=== PATIENT | female | born 1950 | race Caucasian/White ===

== ENCOUNTER → 2016-12-10 | Outpatient (CLI) | payer OTHER ==
[~2016-12-10] MED LIST: ASCA500 PO; BROM0.07 OPL; CALC-354 PO; CYAN10004 PO; GABA-113 PO; LACT1TAB4 PO; LEVO25TA PO; MEGA RED PO; METO-217 PO; MULT-506 PO; NXM/40 PO; PRED1SUS OPL
--- NOTE | 2016-12-10 12:26 | MAMMOGRAPHY REPORT ---
UNILATERAL LEFT DIGITAL SCREENING MAMMOGRAM TOMOSYNTHESIS WITH CAD: 12/10/2016 TECHNIQUE: Breast tomosynthesis in addition to standard 2D mammography was performed. Current study was also evaluated with a Computer Aided Detection (CAD) system. Left CC and MLO 2-D and tomosynth esis images were obtained. COMPARISON: Comparison is made to exams dated: 12/08/2015 mammogram, 12/06/2014 mammogram, 10/12/2012 mammogram, 10/29/2013 mammogram, 10/12/2011 mammogram, and 10/07/2010 mammogram - [facility]. BREAST COMPOSITION: The tissue of the left breast is heterogeneously dense, which may obscure small masses. FINDINGS: There are no suspicious masses, calcifications, or areas of architectural distortion noted in the left breast. There has been no significant interval change compared to prior exams. Status post right mastectomy. Benign-appearing left breast calcifications are unchanged. IMPRESSION: ACR BI-RADS CATEGORY 2: BENIGN There is no mammographic evidence of malignancy. A 1 year screening mammogram is recommended. The p atient will receive written notification of the results. Approximately 10% of breast cancers are not detected with mammography. A negative mammographic repor t should not delay biopsy if a clinically suggestive mass is present. Mariel Hinojosa M.D. ah/:12/10/2016 10:25:05 Single Wire Saw Operator: Aparna GAN(Nando)(M), [facility] letter sent: Normal 1/2 BI-RADS Code: ACR BI-RADS Category 2: Benign
== END | disposition home or self-care (01) ==
LOC: C.MAMM 08:54
PROVIDERS: ATTEND Obstetrics & Gynecology
DX: Z12.31 Encounter for screening mammogram for malignant neoplasm of breast (principal); Z90.11 Acquired absence of right breast and nipple

== ENCOUNTER → 2016-12-21 | Outpatient (CLI) | payer OTHER ==
[2016-12-21 12:22] LABS: BASO % 0.4 %; BASO ABS # 0.03 K/uL (0-0.2); COMPLETE YES; EOS % 3.6 %; HEMATOCRIT 41.6 % (37-47); IG% 0.5 %; LYMPH % 20.8 %; LYMPH ABS # 1.73 K/uL (1.2-3.4); MEAN CELL VOLUME 87.2 fL (80-100); MEAN CORPUSCULAR HEMOGLOBIN 28.7 pg (25-34); MEAN CORPUSCULAR HGB CONC 32.9 g/dl (32-36); MEAN PLATELET VOLUME 9.9 fL (7.4-10.4); MONO % 12.6 %; NEUT % 62.1 %; PLATELET COUNT 291 K/uL (130-400); RED BLOOD COUNT 4.77 M/uL (4.2-5.4); WHITE BLOOD COUNT 8.31 K/uL (4.8-10.8)
[2016-12-21 12:46] LABS: ALT/SGPT 28 U/L (12-78); AST/SGOT 19 U/L (15-37); BLOOD UREA NITROGEN 15 mg/dl (7-18); BUN/CREATININE RATIO 17.4 (10-20); CARBON DIOXIDE 25 mmol/L (21-32); CHLORIDE 106 mmol/L (98-107); CHOLESTEROL 156 mg/dl (0-200); CREATININE 0.85 mg/dl (0.60-1.20); GLUCOSE 96 mg/dl (70-99); POTASSIUM 4.1 mmol/L (3.5-5.1); SODIUM 141 mmol/L (136-145); TRIGLYCERIDES 226 mg/dl (0-150); VERY LOW DENSITY LIPOPROT CALC 45 mg/dl
[2016-12-21 12:56] LABS: ALKALINE PHOSPHATASE 93 U/L (45-117); CHOLESTEROL/HDL RATIO 3.8; FERRITIN 24.4 ng/ml (8.0-388.0); HDL CHOLESTEROL 41 mg/dl; LDL CHOLESTEROL CALCULATED 70 mg/dl
[2016-12-21 13:00] LABS: ESTIMATED AVERAGE GLUCOSE 111 mg/dl; HA1C FLAG Normal (Normal)
== END | disposition home or self-care (01) ==
LOC: C.LABBFT 07:42
PROVIDERS: ATTEND Nurse Practitioner
DX: R73.01 Impaired fasting glucose (principal); D50.9 Iron deficiency anemia, unspecified; E03.9 Hypothyroidism, unspecified; E78.5 Hyperlipidemia, unspecified

== ENCOUNTER → 2017-01-14 | Outpatient (CLI) | payer OTHER ==
[2017-01-14 09:47] LABS: URINE APPEARANCE CLEAR (CLEAR); URINE BILIRUBIN NEG (NEG); URINE COLOR YELLOW; URINE EPITHELIAL CELL AUTO 0-5 /lpf (0-5); URINE NITRITE NEG (NEG); URINE SPECIFIC GRAVITY 1.006 (1.000-1.030); UROBILINOGEN NEG (NEG); ZZUR CULT IF INDIC CLEAN CATCH NO
[2017-01-14 09:51] LABS: MANUAL MICROSCOPIC REQUIRED? NO; REVIEW REQ? NO
[2017-01-18 14:55] LABS: CREATININE UR 34 MG/DL (20-320)
[2017-01-18 23:33] LABS: ALBUMIN 3.8 G/DL (3.8-4.8); ANA SCREEN Negative (Negative); COLLECTION SAMPLE Venous; GAMMA GLOBULIN 1.2 G/DL (0.8-1.7); LEAD BLOOD <1 mcg/dL (<5); TOTAL PROTEIN 6.7 G/DL (6.2-8.3)
--- NOTE | 2017-01-20 06:19 | CODING QUERY MEDICAL NECESSITY ---
SUPPORTING DIAGNOSIS NEEDED A supporting diagnosis is required for the test/procedure performed on this patient in order for us to be reimbursed by the patient's insurance. Please provide a supporting diagnosis for the following test/procedure listed below next to the test name along with your signature. *If there is no additional diagnosis for this patient that would support the following test/procedure please document that below next to the test/procedure. Test(s)/Procedure(s) that require a supporting diagnosis: * VITAMIN B-12 LEVEL DIAGNOSIS: * RAPID PLASMA REAGIN DIAGNOSIS: * DOS: 01/14/17 Provider Signature: Date: Thank you Denice Mittal Health Information Management Once completed, please kindly fax back to [phone] For questions please call [phone]
== END | disposition home or self-care (01) ==
LOC: C.LABBFT 08:14
PROVIDERS: ATTEND Nurse Practitioner
DX: G62.9 Polyneuropathy, unspecified (principal)

== ENCOUNTER → 2017-02-01 | Day surgery (SDC) | payer OTHER ==
[2017-01-14 12:35] VITALS: Ht 166.4 cm; Wt 79.1 kg
[~2017-02-01] VITALS: Ht 166.4 cm; Wt 79.1 kg
[~2017-02-01] MED LIST changes: +500ML BSS 0.3ML EPI 1:1000PF IRRIG ONE; +ACETAMINOPHEN 325 MG TAB PO PRN; +AMVISC PLUS 0.8ML SYRINGE INT OCU ONE; +ATROPINE SULFATE 0.1 MG/ML 5ML SYR IV PRN; +BSS FLUSH ONE; +EpINEphrine INJ 1MG/ML AMP 1 MG/ML AMP ONE; +LACTATED RINGER'S 1000ML 500 ML IV SCH; +LIDOCAINE 3.5% OPH GEL PER APPLICATION CHARGE ONE; +LIDOCAINE HCL 1% MPF 2 ML VIAL ONE; -METO-217 PO; +MIDAZOLAM HCL 1 MG/ML 2ML VIAL ONE; +OCUCOAT 1 ML SOLN IO ONE; +POVIDONE-IODINE OP SOLN 30 ML BTL ONE; +PROPARACAINE 0.5% OP SOLN PER DROP CHARGE OPL SCH; +TOBRAMYCIN/DEXAMETHASONE OPH OINT PER APPLN CHARGE ONE
--- NOTE | 2017-02-01 10:05 | History & Physical Bridge - [place] ---
H&P Re-Evaluation Bridge Note: I have examined the patient, reviewed the History & Physical and in the interval since the performance of the History & Physical I have noted the following changes of clinical significance: No changes noted
[2017-02-01] MEDS: PHENYLEPHRINE HCL 2.5% OP SOLN PER DROP CHARGE OPL SCH ×2 (10:09→10:14)
[2017-02-01] MEDS: TROPICAMIDE 1% OP SOLN PER DROP CHARGE OPL SCH ×2 (10:10→10:15)
[2017-02-01] MEDS: CYCLOPENTOLATE HCL 1% OP SOLN PER DROP CHARGE OPL SCH ×2 (10:11→10:16)
[2017-02-01] MEDS: KETOROLAC 0.5% OP SOLN PER DROP CHARGE OPL SCH ×2 (10:12→10:16)
[2017-02-01] MEDS: GATIFLOXACIN OP SOLN PER DROP CHARGE OPL SCH ×2 (10:13→10:20)
--- NOTE | 2017-02-01 10:55 | Discharge Instructions-SurgCtr ---
Discharge Instructions Date of Service Feb 01, 2017. Visit Reason for Visit: Cataract Left Eye Discharge Discharge Diagnosis / Problem: cataract Discharge Goals Goal(s): Improve function Activity Recommendations Activity Limitations: per Instructions/Follow-up section Anesthesia . Post Anesthesia Instructions: If you have had General Anesthesia or IV Sedation: * Do not drive today. * Resume driving when surgeon permits. * Do not make important decisions or sign legal documents today. * Call surgeon for: 1. Temperature elevations greater than 101 degrees F. 2. Uncontrollable pain. 3. Excessive bleeding. 4. Persistent nausea and vomiting. 5. Medication intolerance (nausea, vomiting or rash). * For nausea and vomiting use only clear liquids such as: tea, soda, bouillon until nausea subsides, then gradually increase diet as tolerated. * If you have any concerns or questions, call your surgeon's office. If physician is unavailable and it is an emergency, call 911 or go to the nearest emergency room. . Instructions / Follow-Up Instructions / Follow-Up ACTIVITY RECOMMENDATIONS: * No strenuous lifting, jogging or running for 4 days * No swimming or yard work for 1 week. * Limited bending is permitted, such as putting on shoes. RETURN TO SCHOOL/WORK: No work until seen by physician in office. MEDICATIONS: Resume previous medications unless instructed otherwise by your surgeon. This includes eye drops for glaucoma. Zymaxid/Gatifloxacin (parry cap) - one drop every 2 hours until bedtime Nevanac/Ilevro/Prolensa/Ketorolac (adams cap) - one drop every 4 hours until bedtime Prednisolone (white/pink cap, SHAKE WELL) - one drop every 2 hours until bedtime Starting tomorrow - all 3 drops every 4 hours until seen in the office Optive drops - as needed for discomfort SPECIAL CARE INSTRUCTIONS: * Wear eyeshield when sleeping, for four nights. * You may wear your own glasses or sunglasses while awake. * You may read or watch TV * You may shower and wash your face, but be gentle around the eye and pat dry. * Blurry vision and mild irritation are normal. * Call office if pain is more severe or vision becomes dark at . FOLLOW UP VISIT: Follow-up with Dr Jensen tomorrow. Diet Recommendations Home Diet: resume previous diet Procedures Procedures Performed: Left Cataract Phacoemulsification With Intraocular Lens Implant Pending Studies Studies pending at discharge: no Medical Emergencies . Who to Call and When: Medical Emergencies: If at any time you feel your situation is an emergency, please call 911 immediately. . Non-Emergent Contact Non-Emergency issues call your: Group Director . . "Provider Documentation" section prepared by Ugo Jensen.
--- NOTE | 2017-02-01 10:56 | [facility] Operative Report ---
Operative Report Date of Service Feb 01, 2017. Operative Report 1. PREOPERATIVE DIAGNOSIS: Cataract of the left eye. 2. POSTOPERATIVE DIAGNOSIS: Same. 3. PROCEDURE: Phacoemulsification with intraocular lens implantation of the left eye. SURGEON: Dr. Ugo Jensen. ANESTHESIA: Topical Lidocaine gel, 1% Non- Preserved intracameral Lidocaine, and monitored intravenous sedation. INDICATIONS FOR THE PROCEDURE: The patient is a 66 - year-old female with a history of cataract of the left eye causing significant visual impairment. The details of the proposed procedure were explained to the patient who asked appropriate questions and following discussion of all risks, benefits and alternatives agreed to have the procedure done. 4. OPERATION AND FINDINGS: DESCRIPTION OF PROCEDURE: After informed consent was obtained, the patient was brought to the Operating Room at the [facility]. The patient was placed in a supine position and then the left eye was prepped and draped in the usual sterile fashion for intraocular surgery. A drop of topical Lidocaine gel was placed in the operative eye. A wire lid speculum was then placed in the fornices. A corneal paracentesis was then created temporally. The Non-Preserved Lidocaine was then instilled into the anterior chamber. The anterior chamber was then pressurized with viscoelastic. A 2.0 mm clear corneal incision was then created temporally. A cystotome was inserted into the anterior chamber and used to create a tear in the anterior lens capsule. This capsular tear was then used to create a small flap and the flap was dragged in a counterclockwise direction in order to create a continuous curvilinear capsulorrhexis. Hydrodissection was accomplished with balanced salt solution. Phacoemulsification of the lens nucleus was then performed in a standard [id number] technique. The phaco time was 19 seconds with an average power of 13 %. The remaining cortical material was removed using irrigation aspiration. The capsular bag was then filled with viscoelastic. A Bausch & Lomb MI60L +24.0 diopters lens was then loaded into the injector and injected into the capsular bag. The remaining viscoelastic was removed with the irrigation aspiration handpiece. The wound was hydrated and then checked and found to be watertight. The intraocular pressure was checked and found to be adequate. The wire lid speculum was removed and the patient's face was cleaned and dried. TobraDex ointment was placed in the inferior fornix. The patient was discharged to the Recovery Room having tolerated the procedure well. There were no complications. The patient will be seen tomorrow in the office for follow-up. I attest to the content of the Intraoperative Record and any orders documented therein. Any exceptions are noted below.
[2017-02-01 10:57] VITALS: TEMP 36.4
[2017-02-01 11:27] VITALS: BP 129/74; PULSE 74; O2SAT 97
--- NOTE | 2017-02-01 11:38 | Anesthesia Progress Nt - [facility] ---
Anesthesia Post Op Note Date & Time Feb 01, 2017 at 11:38 Vital Signs Pain Intensity: 0 Vital Signs Past 12 Hours Date Time Temp Pulse Resp B/P Pulse Ox O2 Delivery O2 Flow Rate FiO2 02/01/17 11:27 74 16 129/74 97 Room Air 02/01/17 10:57 36.4 78 16 127/77 97 Room Air 02/01/17 10:01 36.8 90 16 152/90 95 Room Air Notes Mental Status: alert / awake / arousable, participated in evaluation Pt Amnestic to Procedure: Yes Nausea / Vomiting: adequately controlled Pain: adequately controlled Airway Patency, RR, SpO2: stable & adequate BP & HR: stable & adequate Hydration State: stable & adequate Anesthetic Complications: no major complications apparent
== END | disposition home or self-care (01) ==
LOC: X.SURG 09:33
PROVIDERS: ATTEND Ophthalmology
DX: H26.9 Unspecified cataract (principal); M34.1 CR(E)ST syndrome; K21.9 Gastro-esophageal reflux disease without esophagitis; E78.5 Hyperlipidemia, unspecified; E03.9 Hypothyroidism, unspecified; G62.9 Polyneuropathy, unspecified; Z87.891 Personal history of nicotine dependence; Z85.3 Personal history of malignant neoplasm of breast; Z90.10 Acquired absence of unspecified breast and nipple; Z80.0 Family history of malignant neoplasm of digestive organs; Z83.3 Family history of diabetes mellitus; Z80.3 Family history of malignant neoplasm of breast

== ENCOUNTER → 2017-02-15 | Outpatient (CLI) | payer OTHER ==
[~2017-02-15] MED LIST changes: -500ML BSS 0.3ML EPI 1:1000PF IRRIG ONE; -ACETAMINOPHEN 325 MG TAB PO PRN; -AMVISC PLUS 0.8ML SYRINGE INT OCU ONE; -ATROPINE SULFATE 0.1 MG/ML 5ML SYR IV PRN; -BSS FLUSH ONE; -EpINEphrine INJ 1MG/ML AMP 1 MG/ML AMP ONE; -LACTATED RINGER'S 1000ML 500 ML IV SCH; -LIDOCAINE 3.5% OPH GEL PER APPLICATION CHARGE ONE; -LIDOCAINE HCL 1% MPF 2 ML VIAL ONE; -MIDAZOLAM HCL 1 MG/ML 2ML VIAL ONE; -OCUCOAT 1 ML SOLN IO ONE; -POVIDONE-IODINE OP SOLN 30 ML BTL ONE; -PROPARACAINE 0.5% OP SOLN PER DROP CHARGE OPL SCH; -TOBRAMYCIN/DEXAMETHASONE OPH OINT PER APPLN CHARGE ONE
== END | disposition home or self-care (01) ==
LOC: C.PAPS 16:19
PROVIDERS: ATTEND Obstetrics & Gynecology
DX: Z01.419 Encounter for gynecological examination (general) (routine) without abnormal findings (principal)

== ENCOUNTER → 2017-02-24 | Day surgery (SDC) | payer OTHER ==
[2017-02-11 14:04] VITALS: Ht 166.4 cm; Wt 79.1 kg
[~2017-02-24] VITALS: Ht 166.4 cm; Wt 79.1 kg
[~2017-02-24] MED LIST changes: +500ML BSS 0.3ML EPI 1:1000PF IRRIG ONE; +ACETAMINOPHEN 325 MG TAB PO PRN; +AMVISC PLUS 0.8ML SYRINGE INT OCU ONE; +ATROPINE SULFATE 0.1 MG/ML 5ML SYR IV PRN; +BSS FLUSH ONE; +EpHEDrine SULFATE INJ 50 MG/ML AMP IV PRN; +EpINEphrine INJ 1MG/ML AMP 1 MG/ML AMP ONE; +LACTATED RINGER'S 1000ML 500 ML IV SCH; +LIDOCAINE 3.5% OPH GEL PER APPLICATION CHARGE ONE; +LIDOCAINE HCL 1% MPF 2 ML VIAL ONE; +MIDAZOLAM HCL 1 MG/ML 2ML VIAL ONE; +OCUCOAT 1 ML SOLN IO ONE; +POVIDONE-IODINE OP SOLN 30 ML BTL ONE; +PROPARACAINE 0.5% OP SOLN PER DROP CHARGE OPR SCH; +TOBRAMYCIN/DEXAMETHASONE OPH OINT PER APPLN CHARGE ONE
[2017-02-24] MEDS: PHENYLEPHRINE HCL 2.5% OP SOLN PER DROP CHARGE OPR SCH ×2 (07:46→07:51)
[2017-02-24] MEDS: TROPICAMIDE 1% OP SOLN PER DROP CHARGE OPR SCH ×2 (07:47→07:52)
[2017-02-24] MEDS: CYCLOPENTOLATE HCL 1% OP SOLN PER DROP CHARGE OPR SCH ×2 (07:48→07:53)
[2017-02-24] MEDS: KETOROLAC 0.5% OP SOLN PER DROP CHARGE OPR SCH ×2 (07:49→07:54)
[2017-02-24] MEDS: GATIFLOXACIN OP SOLN PER DROP CHARGE OPR SCH ×2 (07:50→08:02)
--- NOTE | 2017-02-24 09:17 | Discharge Instructions-SurgCtr ---
Discharge Instructions Date of Service Feb 24, 2017. Visit Reason for Visit: Cataract Right Eye Discharge Discharge Diagnosis / Problem: cataract Discharge Goals Goal(s): Improve function Activity Recommendations Activity Limitations: per Instructions/Follow-up section Anesthesia . Post Anesthesia Instructions: If you have had General Anesthesia or IV Sedation: * Do not drive today. * Resume driving when surgeon permits. * Do not make important decisions or sign legal documents today. * Call surgeon for: 1. Temperature elevations greater than 101 degrees F. 2. Uncontrollable pain. 3. Excessive bleeding. 4. Persistent nausea and vomiting. 5. Medication intolerance (nausea, vomiting or rash). * For nausea and vomiting use only clear liquids such as: tea, soda, bouillon until nausea subsides, then gradually increase diet as tolerated. * If you have any concerns or questions, call your surgeon's office. If physician is unavailable and it is an emergency, call 911 or go to the nearest emergency room. . Instructions / Follow-Up Instructions / Follow-Up ACTIVITY RECOMMENDATIONS: * No strenuous lifting, jogging or running for 4 days * No swimming or yard work for 1 week. * Limited bending is permitted, such as putting on shoes. RETURN TO SCHOOL/WORK: No work until seen by physician in office. MEDICATIONS: Resume previous medications unless instructed otherwise by your surgeon. This includes eye drops for glaucoma. Zymaxid/Gatifloxacin (parry cap) - one drop every 2 hours until bedtime Nevanac/Ilevro/Prolensa/Ketorolac (adams cap) - one drop every 4 hours until bedtime Prednisolone (white/pink cap, SHAKE WELL) - one drop every 2 hours until bedtime Starting tomorrow - all 3 drops every 4 hours until seen in the office Optive drops - as needed for discomfort SPECIAL CARE INSTRUCTIONS: * Wear eyeshield when sleeping, for four nights. * You may wear your own glasses or sunglasses while awake. * You may read or watch TV * You may shower and wash your face, but be gentle around the eye and pat dry. * Blurry vision and mild irritation are normal. * Call office if pain is more severe or vision becomes dark at . FOLLOW UP VISIT: Follow-up with Dr Jensen tomorrow. Diet Recommendations Home Diet: resume previous diet Procedures Procedures Performed: Right Cataract Phacoemulsification With Intraocular Lens Implant Pending Studies Studies pending at discharge: no Medical Emergencies . Who to Call and When: Medical Emergencies: If at any time you feel your situation is an emergency, please call 911 immediately. . Non-Emergent Contact Non-Emergency issues call your: Nurse Rn Bsn . . "Provider Documentation" section prepared by Ugo Jensen.
--- NOTE | 2017-02-24 09:18 | [facility] Operative Report ---
Operative Report Date of Service Feb 24, 2017. Operative Report 1. PREOPERATIVE DIAGNOSIS: Cataract of the right eye. 2. POSTOPERATIVE DIAGNOSIS: Same. 3. PROCEDURE: Phacoemulsification with intraocular lens implantation of the right eye. SURGEON: Dr. Ugo Jensen. ANESTHESIA: Topical Lidocaine gel, 1% Non- Preserved intracameral Lidocaine, and monitored intravenous sedation. INDICATIONS FOR THE PROCEDURE: The patient is a 66 - year-old female with a history of cataract of the right eye causing significant visual impairment. The details of the proposed procedure were explained to the patient who asked appropriate questions and following discussion of all risks, benefits and alternatives agreed to have the procedure done. 4. OPERATION AND FINDINGS: DESCRIPTION OF PROCEDURE: After informed consent was obtained, the patient was brought to the Operating Room at the [facility]. The patient was placed in a supine position and then the right eye was prepped and draped in the usual sterile fashion for intraocular surgery. A drop of topical Lidocaine gel was placed in the operative eye. A wire lid speculum was then placed in the fornices. A corneal paracentesis was then created temporally. The Non-Preserved Lidocaine was then instilled into the anterior chamber. The anterior chamber was then pressurized with viscoelastic. A 2.0 mm clear corneal incision was then created temporally. A cystotome was inserted into the anterior chamber and used to create a tear in the anterior lens capsule. This capsular tear was then used to create a small flap and the flap was dragged in a counterclockwise direction in order to create a continuous curvilinear capsulorrhexis. Hydrodissection was accomplished with balanced salt solution. Phacoemulsification of the lens nucleus was then performed in a standard dyhkqm-[id number] technique. The phaco time was 22 seconds with an average power of 9 %. The remaining cortical material was removed using irrigation aspiration. The capsular bag was then filled with viscoelastic. A Bausch & Lomb MI60L +23.5 diopters lens was then loaded into the injector and injected into the capsular bag. The remaining viscoelastic was removed with the irrigation aspiration handpiece. The wound was hydrated and then checked and found to be watertight. The intraocular pressure was checked and found to be adequate. The wire lid speculum was removed and the patient's face was cleaned and dried. TobraDex ointment was placed in the inferior fornix. The patient was discharged to the Recovery Room having tolerated the procedure well. There were no complications. The patient will be seen tomorrow in the office for follow-up. I attest to the content of the Intraoperative Record and any orders documented therein. Any exceptions are noted below.
[2017-02-24 09:19] VITALS: TEMP 36.6
[2017-02-24 09:45] VITALS: BP 129/80; PULSE 73; O2SAT 96
--- NOTE | 2017-02-24 10:11 | Anesthesia Progress Nt - [facility] ---
Anesthesia Post Op Note Date & Time Feb 24, 2017 at 10:10 Vital Signs Pain Intensity: 0 Vital Signs Past 12 Hours Date Time Temp Pulse Resp B/P Pulse Ox O2 Delivery O2 Flow Rate FiO2 02/24/17 09:45 73 16 129/80 96 02/24/17 09:19 36.6 75 16 122/79 97 Room Air 02/24/17 07:46 36.8 82 16 137/85 97 Room Air Notes Mental Status: alert / awake / arousable, participated in evaluation Pt Amnestic to Procedure: Yes Nausea / Vomiting: adequately controlled Pain: adequately controlled Airway Patency, RR, SpO2: stable & adequate BP & HR: stable & adequate Hydration State: stable & adequate Anesthetic Complications: no major complications apparent
== END | disposition home or self-care (01) ==
LOC: X.SURG 07:20
PROVIDERS: ATTEND Ophthalmology
DX: H26.9 Unspecified cataract (principal); H54.7 Unspecified visual loss; M34.1 CR(E)ST syndrome; K21.9 Gastro-esophageal reflux disease without esophagitis; E78.5 Hyperlipidemia, unspecified; E03.9 Hypothyroidism, unspecified; D50.9 Iron deficiency anemia, unspecified; D48.5 Neoplasm of uncertain behavior of skin; G62.9 Polyneuropathy, unspecified; R00.0 Tachycardia, unspecified; Z85.3 Personal history of malignant neoplasm of breast

== ENCOUNTER → 2017-06-23 | Outpatient (CLI) | payer OTHER ==
[~2017-06-23] MED LIST changes: -500ML BSS 0.3ML EPI 1:1000PF IRRIG ONE; -ACETAMINOPHEN 325 MG TAB PO PRN; -AMVISC PLUS 0.8ML SYRINGE INT OCU ONE; -ATROPINE SULFATE 0.1 MG/ML 5ML SYR IV PRN; -BSS FLUSH ONE; -EpHEDrine SULFATE INJ 50 MG/ML AMP IV PRN; -EpINEphrine INJ 1MG/ML AMP 1 MG/ML AMP ONE; -LACTATED RINGER'S 1000ML 500 ML IV SCH; -LIDOCAINE 3.5% OPH GEL PER APPLICATION CHARGE ONE; -LIDOCAINE HCL 1% MPF 2 ML VIAL ONE; -MIDAZOLAM HCL 1 MG/ML 2ML VIAL ONE; -OCUCOAT 1 ML SOLN IO ONE; -POVIDONE-IODINE OP SOLN 30 ML BTL ONE; -PROPARACAINE 0.5% OP SOLN PER DROP CHARGE OPR SCH; -TOBRAMYCIN/DEXAMETHASONE OPH OINT PER APPLN CHARGE ONE
[2017-06-23 12:34] LABS: HEMATOCRIT 40.2 % (37-47); MEAN CELL VOLUME 89.1 fL (80-100); MEAN CORPUSCULAR HGB CONC 32.6 g/dl (32-36); MEAN PLATELET VOLUME 9.5 fL (7.4-10.4); PLATELET COUNT 277 K/uL (130-400); RED BLOOD COUNT 4.51 M/uL (4.2-5.4); WHITE BLOOD COUNT 9.58 K/uL (4.8-10.8)
[2017-06-23 12:57] LABS: BLOOD UREA NITROGEN 13 mg/dl (7-18); BUN/CREATININE RATIO 14.9 (10-20); CALCIUM 8.5 mg/dl (8.5-10.1); CARBON DIOXIDE 27 mmol/L (21-32); CHLORIDE 109 mmol/L (98-107); CREATININE 0.89 mg/dl (0.60-1.20); GLUCOSE 93 mg/dl (70-99); POTASSIUM 4.1 mmol/L (3.5-5.1); SODIUM 141 mmol/L (136-145)
[2017-06-23 13:07] LABS: FERRITIN 26.1 ng/ml (8.0-388.0)
== END | disposition home or self-care (01) ==
LOC: C.LABBFT 08:22
PROVIDERS: ATTEND Nurse Practitioner
DX: E03.9 Hypothyroidism, unspecified (principal); D50.9 Iron deficiency anemia, unspecified; R73.01 Impaired fasting glucose

== ENCOUNTER → 2017-07-12 | Outpatient (CLI) | payer OTHER | END | disposition home or self-care (01) | LOC: C.LABBFT 08:19 | PROVIDERS: ATTEND Nurse Practitioner | DX: Z11.59 Encounter for screening for other viral diseases (principal) ==

== ENCOUNTER → 2017-07-21 | Outpatient (CLI) | payer OTHER | END | disposition home or self-care (01) | LOC: C.MAMM 10:58 | PROVIDERS: ATTEND Nurse Practitioner | DX: M85.88 Other specified disorders of bone density and structure, other site (principal); M85.851 Other specified disorders of bone density and structure, right thigh; M85.852 Other specified disorders of bone density and structure, left thigh ==

== ENCOUNTER → 2017-12-12 | Outpatient (CLI) | payer OTHER ==
--- NOTE | 2017-12-12 15:52 | MAMMOGRAPHY REPORT ---
BILATERAL DIGITAL SCREENING MAMMOGRAM TOMOSYNTHESIS WITH CAD: 12/12/2017 CLINICAL HISTORY: Asymptomatic. Personal history of breast cancer. TECHNIQUE: Breast tomosynthesis in addition to standard 2D mammography was performed. Current study was also evaluated with a Computer Aided Detection (CAD) system. COMPARISON: Comparison is made to exams dated: 12/10/2016 mammogram, 12/08/2015 mammogram, 12/06/2014 m ammogram, 10/29/2013 mammogram, 10/12/2012 mammogram, and 10/12/2011 mammogram - [facility]. BREAST COMPOSITION: The tissue of both breasts is heterogeneously dense, which may obscure small mas ses. FINDINGS: The patient is status post right mastectomy and TRAM flap reconstruction. There are no hansen spicious masses, calcifications, or areas of architectural distortion noted in the left breast or the right reconstructed breast. There has been no significant interval change compared to prior exams. Bilateral benign-appearing calcifications are again noted. IMPRESSION: ACR BI-RADS CATEGORY 2: BENIGN There is no mammographic evidence of malignancy. A 1 year screening mammogram is recommended. The pa tient will receive written notification of the results. Approximately 10% of breast cancers are not detected with mammography. A negative mammographic report should not delay biopsy if a clinically suggestive mass is present. Mariel Hinojosa M.D. /:12/12/2017 12:38:36 Family Development Specialist: Aparna ZARAGOZA)([place]), [facility] letter sent: Normal 1/2 BI-RADS Code: ACR BI-RADS Category 2: Benign
== END | disposition home or self-care (01) ==
LOC: C.MAMM 09:32
PROVIDERS: ATTEND Obstetrics & Gynecology
DX: Z12.31 Encounter for screening mammogram for malignant neoplasm of breast (principal); Z85.3 Personal history of malignant neoplasm of breast; Z08 Encounter for follow-up examination after completed treatment for malignant neoplasm

== ENCOUNTER → 2018-01-03 | Outpatient (CLI) | payer OTHER ==
[2018-01-03 12:26] LABS: HEMATOCRIT 40.3 % (37-47); HEMOGLOBIN 13.6 g/dL (12.0-16.0); MEAN CELL VOLUME 88.6 fL (80-100); MEAN CORPUSCULAR HEMOGLOBIN 29.9 pg (25-34); MEAN CORPUSCULAR HGB CONC 33.7 g/dl (32-36); MEAN PLATELET VOLUME 9.9 fL (7.4-10.4); PLATELET COUNT 301 K/uL (130-400); RED CELL DISTRIBUTION WIDTH SD 45.7 fL (36.4-46.3); WHITE BLOOD COUNT 9.82 K/uL (4.8-10.8)
[2018-01-03 13:30] LABS: ALBUMIN 3.6 gm/dl (3.4-5.0); ALT/SGPT 22 U/L (12-78); AST/SGOT 15 U/L (15-37); BLOOD UREA NITROGEN 17 mg/dl (7-18); CALCIUM 8.9 mg/dl (8.5-10.1); CARBON DIOXIDE 23 mmol/L (21-32); CREATININE 0.88 mg/dl (0.60-1.20); GLUCOSE 88 mg/dl (70-99); POTASSIUM 3.7 mmol/L (3.5-5.1); SODIUM 138 mmol/L (136-145)
[2018-01-03 13:35] LABS: ALKALINE PHOSPHATASE 89 U/L (45-117); CHOLESTEROL 133 mg/dl (0-200); LDL CHOLESTEROL CALCULATED 52 mg/dl; TOTAL PROTEIN 7.6 gm/dl (6.4-8.2)
== END | disposition home or self-care (01) ==
LOC: C.LABBFT 07:36
PROVIDERS: ATTEND Nurse Practitioner
DX: D50.9 Iron deficiency anemia, unspecified (principal); E78.5 Hyperlipidemia, unspecified; C85.91 Non-Hodgkin lymphoma, unspecified, lymph nodes of head, face, and neck

== ENCOUNTER 2022-09-18 12:59 | Inpatient (IN) ==
[2022-09-18] MEDS ORDERED: ONDANSETRON INJ 2 MG/ML 2 ML VIAL IV STA (13:24)
[2022-09-18] MEDS ORDERED: SODIUM CHLORIDE 0.9% 1000ML 1,000 ML IV STA (13:24)
--- NOTE | 2022-09-18 13:26 | Emergency Department Note ---
Impression & Plan SBO (small bowel obstruction), Vomiting, Acute dehydration ED Provider Note NAME: KEVIN HUNTER AGE: 72 SEX: F : 1950 ARRIVES VIA: Walk-In INFORMANT: Patient, ED PROVIDER(S): Adelfo Esteban DO CHIEF COMPLAINT: Vomiting HPI: The patient is a 72-year-old female who presented to the emergency department for an evaluation of nausea and vomiting. The patient started having symptoms last evening. She has a history of a watermelon stomach. She also has a history of breast cancer. The patient states that she started having symptoms last evening. She notices some abdominal distention. She denies having any diarrhea or fever. She denies having any chest pain or difficulty breathing. The patient states the symptoms are worsened now but she only has dry heaves. Patient denies having any hematemesis. She has had no melena. She states her symptoms are moderate to severe. Abdominal pain worsens with palpation over the upper abdomen. ROS: See above HPI for pertinent positives & negatives. A total of 10 systems reviewed and were otherwise negative. PAST MEDICAL HISTORY: See Below PAST SURGICAL HISTORY: See Below FAMILY HISTORY: See Below SOCIAL HISTORY: See Below HOME MEDICATIONS: See Below ALLERGIES: See Below VITALS: See Below PHYSICAL EXAMINATION: GENERAL: Patient is awake alert in no acute distress patient is resting comfortably and showing no signs of anxiety EYES: The conjunctivae are clear. The pupils are round and reactive. EARS, NOSE, MOUTH AND THROAT: The nose is without any evidence of any deformity. Mucous membranes are moist. Tongue is midline. NECK: The neck is nontender and supple. RESPIRATORY: Normal respiratory effort is noted there is no evidence of wheezing rhonchi or rales CARDIOVASCULAR: Regular rate and rhythm noted there no murmurs rubs or gallops normal S1 normal S2. GASTROINTESTINAL: The abdomen is soft and mildly distended. There is diffuse tenderness to palpation but no guarding or rigidity. MUSCULOSKELETAL/EXTREMITIES: There is no evidence of gross deformity full range of motion is noted in the hips and shoulders. SKIN: There is no obvious evidence of any rash. There are no petechiae, pallor or cyanosis noted. NEUROLOGIC: Patient is awake alert and oriented x3. MEDICAL DECISION MAKING: The patient is a 72-year-old female who presented to the emergency department for an evaluation of abdominal pain and vomiting. The patient's physical exam was consistent with very significant abdominal tenderness but she did not have an acute surgical abdomen. The patient has no intra-abdominal surgical history. Physical exam appear to be consistent with obstruction and this was confirmed on radiographic studies. An NG tube was ordered. The patient was treated with IV fluids and IV antibiotics. She was also treated with IV pain medication. On reevaluation she was resting much more comfortably. I discussed the patient's laboratory and radiographic studies with her. I also discussed her case with the on-call general surgeon as well as the on-call [facility] hospitalist. They have agreed to evaluate the patient in the emergency department for further management and disposition. Triage Nursing notes reviewed. Prior medical records reviewed Vital Signs: reviewed and remarkable for no significant abnormalities Differential diagnosis: Gastroenteritis, food borne illness, infections, appendicitis, diverticulitis, inflammatory bowel disease, obstruction, GI bleed, biliary pathology, volvulus, as well as other pathologies. ER treatment provided: See below Diagnostics interpreted by me: ECG: EKG was obtained in the emergency department. My interpretation is normal sinus rhythm at 94 bpm. LVH was suggested by voltage criteria. First-degree AV block was noted. Poor R wave progression was also noted. This was compared to a tracing from January 08, 2016. No significant changes were noted. Cardiac Monitoring: An order was placed for continuous cardiac monitoring. The monitor shows a rate of 91 bpm with sinus rhythm. Laboratory studies: As stated above and show below. Imaging studies: See below Consultation(s): I discussed this case with Dr. Cool who is on for general surgery. I discussed this case with Dr. Boykin Past Med/Surg History Medical History CREST (calcinosis, Raynaud's phenomenon, esophageal dysfunction, sclerodactyly, telangiectasia) GERD without esophagitis History of adjustment disorder Iron deficiency anemia Personal history of breast cancer right Personal history of Helicobacter infection Pulmonary fibrosis Recurrent cough Surgical History History of breast reconstruction History of colonoscopy History of subtotal mastectomy of right breast Family History Father Myocardial infarction Sister Breast cancer Ovarian cancer Brother Colon cancer Diabetes Prostate cancer Colorectal cancer Mother Coronary heart disease Diabetes Social History Smoking Status: Never smoker Age Started Using Tobacco: 29; Age Quit Using Tobacco: 39; Years Smoked: 10; Second Hand Exposure: No; Hx Alcohol Use: No Hx Substance Use: No Preferred Language: Sinhala Visual Impairment: No Limitations Hearing Ability: Normal marital status: Current Living Situation: Spouse current occupational status: retired Feels Safe at Home: Yes Childhood Exposure to Second-Hand Smoke: Yes caffeine: No Dental Care, Regularly: Yes Physical Activity Frequency: Daily Seatbelt Use: always Sunscreen Use: Yes Allergies Allergies Allergy/AdvReac Type Severity Reaction Status Date / Time nickel AdvReac Severe RASH- Verified 09/17/22 09:06 HANDS AND OTHER AREAS BREAK OUT Home Meds Home Medications Medication Instructions Recorded Confirmed Lactobacillus acidophilus 1 1,000 mmu cells PO DAILY 01/06/20 09/18/22 billion cell tablet ascorbic acid (vitamin C) 100 mg 100 mg PO DAILY 01/06/20 09/18/22 tablet calcium carbonate 600 mg calcium 600 mg PO DAILY 01/06/20 09/18/22 (1,500 mg) tablet cyanocobalamin (vitamin B-12) 1,000 mcg PO DAILY 01/06/20 09/18/22 1,000 mcg tablet coenzyme Q10 100 mg capsule (Co 100 mg PO DAILY 01/22/20 09/18/22 Q-10) talsxzydbks-otjjzkdft-frr C-Mn 500 1 cap PO DAILY 01/22/20 09/18/22 mg-400 mg capsule (Glucosamine Chondroitin Maximum Strength) omega-3 fatty acids [Fish Oil] 1 ea PO DAILY 01/22/20 09/18/22 ferrous fumarate 324 mg (106 mg 324 mg PO DAILY 01/28/22 09/18/22 iron) tablet albuterol 90 mcg/actuation aerosol 90 mcg inhalation DAILY 09/02/22 09/18/22 inhaler Previous Rx's Medication Instructions Recorded omeprazole 20 mg capsule,delayed 20 mg PO DAILY #90 caps 06/04/22 release desoximetasone 0.25 % topical 1 applic topical DAILY #60 grams 06/10/22 ointment gabapentin 800 mg tablet 800 mg PO TID #270 tabs 08/23/22 benzonatate 100 mg capsule 100 mg PO TID PRN cough #30 caps 09/02/22 baclofen 10 mg tablet 10 mg PO BID #180 tabs 09/06/22 levothyroxine 25 mcg tablet 25 mcg PO DAILY #90 tabs 09/06/22 Results & Data (ED) Vital Signs Vital Signs - 24 hr 09/18/22 13:03 09/18/22 13:46 09/18/22 13:46 Temperature 36.6 C Temperature Source Temporal Artery Scan Pulse Rate 99 H Pulse Rate [Apical] 92 H Pulse Rhythm [Apical] Regular Respiratory Rate 16 16 Respiratory Effort / Characteristics Non-Labored Respiratory Depth Normal Respiratory Pattern Regular Blood Pressure 129/83 Blood Pressure [Left Arm] 139/95 Blood Pressure Mean 98 Blood Pressure Mean [Left Arm] 109 Blood Pressure Position [Left Arm] Lying Pulse Oximetry 97 98 98 Oxygen Delivery Method Room Air Room Air Sepsis Recent Fever Within 48 Hours No Sepsis New/Unexplained Change in Mental Status No Sepsis Action Taken by Nursing No Action Required 09/18/22 15:00 Temperature Temperature Source Pulse Rate Pulse Rate [Apical] 91 H Pulse Rhythm [Apical] Respiratory Rate 16 Respiratory Effort / Characteristics Respiratory Depth Normal Respiratory Pattern Blood Pressure Blood Pressure [Left Arm] 137/82 Blood Pressure Mean Blood Pressure Mean [Left Arm] 100 Blood Pressure Position [Left Arm] Pulse Oximetry 96 Oxygen Delivery Method Room Air Sepsis Recent Fever Within 48 Hours Sepsis New/Unexplained Change in Mental Status Sepsis Action Taken by Usp Medications Current Medication List: was personally reviewed by me Laboratory Data Attestation: I reviewed the patient's lab results. Result diagrams: 09/18/22 13:24 09/18/22 13:24 Lab Results 09/18/22 09/18/22 09/18/22 Range/Units 13:24 13:24 13:24 WBC 23.27 H (4.8-10.8) K/ul RBC 5.02 (3.93-5.22) M/uL Hgb 14.4 (12.0-16.0) g/dl Hct 43.6 (34.1-44.9) % MCV 86.9 (80.0-100.0) fL MCH 28.7 (25.0-34.0) pg MCHC 33.0 (32.0-36.0) g/dL RDW Std Deviation 43.7 (36.4-46.3) fL RDW Coeff of Colette 13.8 (11.5-14.5) % Plt Count 457 H (130-400) K/uL MPV 9.5 (9.4-12.3) fL Immature Gran % (Auto) 0.6 % Neut % (Auto) 85.1 % Lymph % (Auto) 8.7 % [place] % (Auto) 5.3 % Eos % (Auto) 0.0 % Baso % (Auto) 0.3 % Neut # (Auto) 19.80 H (1.4-6.5) K/uL Lymph # (Auto) 2.02 (1.2-3.4) K/uL [place] # (Auto) 1.23 H (0.24-0.82) K/uL Eos # (Auto) 0.01 (0-0.50) K/uL Baso # (Auto) 0.06 (0-0.2) K/uL Immature Gran # (Auto) 0.15 H (0.00-0.02) K/uL PT 10.9 (9.0-12.0) Seconds INR 1.0 (0.9-1.1) APTT 26.8 (21.0-31.0) Seconds PTT Ratio 1.0 Sodium 138 (136-145) mmol/L Potassium 3.6 (3.5-5.1) mmol/L Chloride 102 (98-107) mmol/L Carbon Dioxide 26 (21-32) mmol/L Anion Gap 10 (3-11) BUN 13 (6-23) mg/dl Creatinine 0.76 (0.6-1.2) mg/dl Est Cr Clr Drug Dosing Not Reportable Est GFR ( Amer) 91.5 ml/min Est GFR (Non-Af Amer) 78.9 ml/min BUN/Creatinine Ratio 17.1 (10-20) Glucose 146 H (70-99(Fasting)) mg/dl Calcium 9.5 (8.5-10.1) mg/dl Total Bilirubin 0.5 (0.2-1.0) mg/dl AST 19 (13-39) U/L ALT 17 (7-52) U/L Alkaline Phosphatase 88 (34-104) U/L Troponin I High Sens 9.7 (0-14) pg/ml Total Protein 8.4 H (6.0-8.3) gm/dl Albumin 4.4 (3.4-5.0) gm/dl Globulin 4.0 (2.5-4.0) gm/dl Albumin/Globulin Ratio 1.1 (0.9-2) Lipase 11 (11-82) U/L SARS-CoV-2, RNA, NAAT (NEGATIVE) 09/18/22 Range/Units 13:44 WBC (4.8-10.8) K/ul RBC (3.93-5.22) M/uL Hgb (12.0-16.0) g/dl Hct (34.1-44.9) % MCV (80.0-100.0) fL MCH (25.0-34.0) pg MCHC (32.0-36.0) g/dL RDW Std Deviation (36.4-46.3) fL RDW Coeff of Colette (11.5-14.5) % Plt Count (130-400) K/uL MPV (9.4-12.3) fL Immature Gran % (Auto) % Neut % (Auto) % Lymph % (Auto) % [place] % (Auto) % Eos % (Auto) % Baso % (Auto) % Neut # (Auto) (1.4-6.5) K/uL Lymph # (Auto) (1.2-3.4) K/uL [place] # (Auto) (0.24-0.82) K/uL Eos # (Auto) (0-0.50) K/uL Baso # (Auto) (0-0.2) K/uL Immature Gran # (Auto) (0.00-0.02) K/uL PT (9.0-12.0) Seconds INR (0.9-1.1) APTT (21.0-31.0) Seconds PTT Ratio Sodium (136-145) mmol/L Potassium (3.5-5.1) mmol/L Chloride (98-107) mmol/L Carbon Dioxide (21-32) mmol/L Anion Gap (3-11) BUN (6-23) mg/dl Creatinine (0.6-1.2) mg/dl Est Cr Clr Drug Dosing Est GFR ( Amer) ml/min Est GFR (Non-Af Amer) ml/min BUN/Creatinine Ratio (10-20) Glucose (70-99(Fasting)) mg/dl Calcium (8.5-10.1) mg/dl Total Bilirubin (0.2-1.0) mg/dl AST (13-39) U/L ALT (7-52) U/L Alkaline Phosphatase (34-104) U/L Troponin I High Sens (0-14) pg/ml Total Protein (6.0-8.3) gm/dl Albumin (3.4-5.0) gm/dl Globulin (2.5-4.0) gm/dl Albumin/Globulin Ratio (0.9-2) Lipase (11-82) U/L SARS-CoV-2, RNA, NAAT NEGATIVE (NEGATIVE) Administered Medications Discontinued Medications Sodium Chloride (Nss 1000ml) 1,000 mls @ 999 mls/hr IV .Q1H1M STA Stop: 09/18/22 14:24 Last Infusion: 09/18/22 15:03 Dose: 0 mls/hr Documented By: Admin: 09/18/22 13:41 Dose: 999 mls/hr Documented By: Piperacillin Sod/Tazobactam Sod (Zosyn) 4.5 gm in 120 mls @ 240 mls/hr IV NOW ONE Stop: 09/18/22 15:22 Last Admin: 09/18/22 15:03 Dose: 240 mls/hr Documented By: CORRINE Ioversol (Optiray 350 100ml) 90 ml IV ONCE ONE Stop: 09/18/22 14:24 Last Admin: 09/18/22 14:23 Dose: 90 ml Documented By: ALISSA Ondansetron HCl (Ondansetron Inj 2 Mg/Ml 2 Ml Vial) 4 mg IV NOW STA Stop: 09/18/22 13:25 Last Admin: 09/18/22 13:41 Dose: 4 mg Documented By: Imaging Data Radiologist's Impression: Abdomen/Pelvis CT 09/18/22 13:24 CT abd pelvis IV con only CLINICAL HISTORY: vomiting TECHNIQUE: Helical axial images of the abdomen and pelvis were obtained and dis played. Automated dose lowering techniques and/or adjustment according to patient size were utilized for this exam. This exam was performed with intravenous contrast. CT DOSE: 510.04 mGy.cm COMPARISON: Comparison is made to PET/CT 2014 FINDINGS: Lower chest: Reticular interstitial thickening, groundglass opacity, and bronchiectasis noted. Liver: Unremarkable. No focal lesions are seen. Gallbladder and biliary tree: No calcified gallstones. Normal caliber wall. No intra- or extrahepatic biliary ductal dilation. Pancreas: Unremarkable, no focal lesions. Spleen: Unremarkable. Adrenals: Unremarkable. Kidneys and ureters: Subcentimeter hypodensities are too small to characterize. Bladder: Unremarkable. Reproductive organs: Unremarkable. Bowel: The colon is decompressed. The appendix is normal. There are multiple dilated loops of small bowel with air-fluid levels. There is a distal transition point in the ileum, no proximal transition point is seen. Lymph nodes Retroperitoneal: Unremarkable. Pelvic: Unremarkable. Mesenteric: Unremarkable. Peritoneum: Free fluid is seen in the pelvis. Vessels: Atherosclerotic calcifications are seen. Vascular swirling is seen in the right lower quadrant about the transition point. Abdominal wall: Unremarkable. Bones: Unremarkable. IMPRESSION: 1. Small bowel obstruction with under distended large bowel and distal transition point only, compatible with high-grade partial small bowel obstruction. Vascular swirl is seen in the right lower quadrant however there is no evidence of closed loop obstruction. No bowel ischemia is seen. 2. Particular interstitial thickening in bronchial wall thickening in the lower lungs favored to represent pulmonary fibrosis with or without superimposed inf ectious/inflammatory bronchitis. ACT 112: Negative or not required by law. Electronically signed by: Kofi Villatoro M.D. 09/18/2022 2:47 PM Chest X-Ray 09/18/22 13:24 XR chest 1V portable CLINICAL HISTORY: vomiting TECHNIQUE: Single frontal radiograph of the chest was obtained. Comparison: Comparison is made to chest radiograph 11/26/2021 FINDINGS: No lines and tubes are seen. The cardiomediastinal silhouette is normal. Lungs are underinflated but clear. Trace right pleural plaques are seen. No evidence of pleural effusion or pneumothorax. Right axillary clips are noted. IMPRESSION: No acute chest disease. ACT 112: Negative or not required by law. Electronically signed by: Kofi Villatoro M.D. 09/18/2022 2:03 PM Discharge Plan Visit Data Chief Complaint: Vomiting Stated Complaint: VOMITING ED Provider: Adelfo Esteban Discharge Problem: SBO (small bowel obstruction), Vomiting, Acute dehydration Patient Disposition: Being Evaluated by Hospitalist Forms Stand Alone Forms: My [facility] Prescriptions Prescriptions: No Action omeprazole 20 mg capsule,delayed release(DR/EC) 20 mg PO DAILY Qty: 90 3RF desoximetasone 0.25 % ointment 1 applic topical DAILY Qty: 60 0RF Rx Instructions: Apply to areas of hands at bedtime x 2 weeks as needed for flaring. gabapentin 800 mg tablet 800 mg PO TID Qty: 270 1RF levothyroxine 25 mcg tablet 25 mcg PO DAILY Qty: 90 3RF baclofen 10 mg tablet 10 mg PO BID Qty: 180 1RF Lactobacillus acidophilus 1 billion cell tablet 1,000 mmu cells PO DAILY cyanocobalamin (vitamin B-12) 1,000 mcg tablet 1,000 mcg PO DAILY ascorbic acid (vitamin C) 100 mg tablet 100 mg PO DAILY calcium carbonate 600 mg calcium (1,500 mg) tablet 600 mg PO DAILY omega-3 fatty acids 1 ea PO DAILY coenzyme Q10 [Co Q-10] 100 mg capsule 100 mg PO DAILY qwhsjldnmgy-gsqkjgorz-pdb C-Mn [Glucosamine Chondroitin MaxStr] 500-400 mg capsule 1 cap PO DAILY ferrous fumarate 324 mg (106 mg iron) tablet 324 mg PO DAILY Rx Instructions: Three times weekly 324 mg PO; albuterol 90 mcg/actuation aerosol 90 mcg inhalation DAILY benzonatate 100 mg capsule 100 mg PO TID PRN (Reason: cough) Qty: 30 0RF Referrals Referrals: Stephany Gilbert CRNP [Primary Care Provider] - : Vomiting Qualifiers: Vomiting type: unspecified Nausea presence: with nausea Qualified Code(s): R11.2 - Nausea with vomiting, unspecified
[2022-09-18 13:44] LABS: Basophils # (auto) 0.06 K/uL (0-0.2); Basophils % (auto) 0.3 %; Eosinophils # (auto) 0.01 K/uL (0-0.50); Hematocrit (blood only) 43.6 % (34.1-44.9); Hemoglobin 14.4 g/dl (12.0-16.0); Immature Granulocytes # (auto) 0.15 K/uL (0.00-0.02); Immature Granulocytes % (auto) 0.6 %; Lymphocytes # (auto) 2.02 K/uL (1.2-3.4); Lymphocytes % (auto) 8.7 %; Mean Corpuscular Hemoglobin 28.7 pg (25.0-34.0); Mean Corpuscular Volume 86.9 fL (80.0-100.0); Mean Platelet Volume 9.5 fL (9.4-12.3); Monocytes # (auto) 1.23 K/uL (0.24-0.82); Monocytes % (auto) 5.3 %; Neutrophils % (auto) 85.1 %; Platelet Count 457 K/uL (130-400); RDW Coefficient of Variation 13.8 % (11.5-14.5); RDW Standard Deviation 43.7 fL (36.4-46.3); Red Blood Count 5.02 M/uL (3.93-5.22); White Blood Count 23.27 K/ul (4.8-10.8)
[2022-09-18 13:56] LABS: Partial Thromboplastin Time 26.8 Seconds (21.0-31.0); Prothrombin Time 10.9 Seconds (9.0-12.0)
--- NOTE | 2022-09-18 14:05 | XRay Report ---
XR chest 1V portable CLINICAL HISTORY: vomiting TECHNIQUE: Single frontal radiograph of the chest was obtained. Comparison: Comparison is made to chest radiograph 11/26/2021 FINDINGS: No lines and tubes are seen. The cardiomediastinal silhouette is normal. Lungs are underinflated but clear. Trace right pleural plaques are seen. No evidence of pleural effusion or pneumothorax. Right a xillary clips are noted. IMPRESSION: No acute chest disease. ACT 112: Negative or not required by law. Electronically signed by: Kofi Villatoro M.D. 09/18/2022 2:03 PM
[2022-09-18 14:07] LABS: Alanine Aminotransferase 17 U/L (7-52); Albumin Globulin Ratio 1.1 (0.9-2); Albumin Level 4.4 gm/dl (3.4-5.0); Alkaline Phosphatase 88 U/L (34-104); Anion Gap 10 (3-11); Aspartate Aminotransferase 19 U/L (13-39); BUN Creatinine Ratio 17.1 (10-20); Bilirubin,Total 0.5 mg/dl (0.2-1.0); Blood Urea Nitrogen 13 mg/dl (6-23); Calcium 9.5 mg/dl (8.5-10.1); Carbon Dioxide 26 mmol/L (21-32); Chloride 102 mmol/L (98-107); Est GFR (African American) 91.5 ml/min; Est GFR (Non-African American) 78.9 ml/min; Glucose 146 mg/dl (70-99(Fasting)); Lipase 11 U/L (11-82); Potassium 3.6 mmol/L (3.5-5.1); Sodium 138 mmol/L (136-145); Total Protein 8.4 gm/dl (6.0-8.3)
[2022-09-18 14:13] LABS: Troponin I High Sensitivity 9.7 pg/ml (0-14)
[2022-09-18] MEDS ORDERED: OPTIRAY 350 100ml IV ONE (14:23)
--- NOTE | 2022-09-18 14:50 | CT Scan Report ---
CT abd pelvis IV con only CLINICAL HISTORY: vomiting TECHNIQUE: Helical axial images of the abdomen and pelvis were obtained and displayed. Automated dose lowering techniques and/or adjustment according to patient size were utilized for this exam. This e xam was performed with intravenous contrast. CT DOSE: 510.04 mGy.cm COMPARISON: Comparison is made to PET/CT 2014 FINDINGS: Lower chest: Reticular interstitial thickening, groundglass opacity, and bronchiectasis noted. Liver: Unremarkable. No focal lesions are seen. Gallbladder and biliary tree: No calcified gallstones. Normal caliber wall. No intra- or extrahepatic biliary ductal dilation. Pancreas: Unremarkable, no focal lesions. Spleen: Unremarkable. Adrenals: Unremarkable. Kidneys and ureters: Subcentimeter hypodensities are too small to characterize. Bladder: Unremarkable. Reproductive organs: Unremarkable. Bowel: The colon is decompressed. The appendix is normal. There are multiple dilated loops of small b owel with air-fluid levels. There is a distal transition point in the ileum, no proximal transition p oint is seen. Lymph nodes Retroperitoneal: Unremarkable. Pelvic: Unremarkable. Mesenteric: Unremarkable. Peritoneum: Free fluid is seen in the pelvis. Vessels: Atherosclerotic calcifications are seen. Vascular swirling is seen in the right lower quadra nt about the transition point. Abdominal wall: Unremarkable. Bones: Unremarkable. IMPRESSION: 1. Small bowel obstruction with under distended large bowel and distal transition point only, compat ible with high-grade partial small bowel obstruction. Vascular swirl is seen in the right lower quadr ant however there is no evidence of closed loop obstruction. No bowel ischemia is seen. 2. Particular interstitial thickening in bronchial wall thickening in the lower lungs favored to rep resent pulmonary fibrosis with or without superimposed infectious/inflammatory bronchitis. ACT 112: Negative or not required by law. Electronically signed by: Kofi Villatoro M.D. 09/18/2022 2:47 PM
[2022-09-18] MEDS ORDERED: PIPERACILLIN/TAZOBACTAM 4.5 GM/120 ML BAG IV ONE (14:53)
[2022-09-18] MEDS ORDERED: SODIUM CHLORIDE 0.9% 1000ML 1,000 ML IV ONE (15:11)
[2022-09-18] MEDS ORDERED: PANTOprazole 40 MG in SYRINGE 0 ML IV ONE (15:40)
--- NOTE | 2022-09-18 15:51 | Surgery Consultation ---
Date of Consultation September 18, 2022 Assessment & Plan (1) SBO (small bowel obstruction): Patient does have evidence on CAT scan of a small bowel obstruction She has no significant abdominal pain Her emesis is mostly gastric contents and not bilious We will continue with nonoperative management at the present time with NG tube Recheck KUB I did discuss with the patient and her the possible need for surgery depending on her progress History of Present Illness History of Present Illness 72-year-old female presenting the emergency room with nausea and vomiting over the past 24 to 48 hours She does not complain of any abdominal pain Interestingly on CT scan she has dilated small bowel with a possible distal swirl consistent with at least a partial small bowel obstruction also her colon is dilated She is vomiting clear fluid and not bilious She has had no prior surgery She may have a history of vasculitis Allergies Allergy/AdvReac Type Severity Reaction Status Date / Time nickel AdvReac Severe RASH- Verified 09/17/22 09:06 HANDS AND OTHER AREAS BREAK OUT Home Medications Medication Instructions Recorded Confirmed Type Lactobacillus acidophilus 1 1,000 mmu cells PO DAILY 01/06/20 09/18/22 History billion cell tablet ascorbic acid (vitamin C) 100 mg 100 mg PO DAILY 01/06/20 09/18/22 History tablet calcium carbonate 600 mg calcium 600 mg PO DAILY 01/06/20 09/18/22 History (1,500 mg) tablet cyanocobalamin (vitamin B-12) 1,000 mcg PO DAILY 01/06/20 09/18/22 History 1,000 mcg tablet coenzyme Q10 100 mg capsule (Co 100 mg PO DAILY 01/22/20 09/18/22 History Q-10) fcadalapxjp-dmlrcgfbd-mdl C-Mn 500 1 cap PO DAILY 01/22/20 09/18/22 History mg-400 mg capsule (Glucosamine Chondroitin Maximum Strength) omega-3 fatty acids [Fish Oil] 1 ea PO DAILY 01/22/20 09/18/22 History ferrous fumarate 324 mg (106 mg 324 mg PO DAILY 01/28/22 09/18/22 History iron) tablet omeprazole 20 mg capsule,delayed 20 mg PO DAILY #90 caps 06/04/22 09/18/22 Rx release desoximetasone 0.25 % topical 1 applic topical DAILY #60 grams 06/10/22 09/18/22 Rx ointment gabapentin 800 mg tablet 800 mg PO TID #270 tabs 08/23/22 09/18/22 Rx albuterol 90 mcg/actuation aerosol 90 mcg inhalation DAILY 09/02/22 09/18/22 History inhaler benzonatate 100 mg capsule 100 mg PO TID PRN cough #30 caps 09/02/22 09/18/22 Rx baclofen 10 mg tablet 10 mg PO BID #180 tabs 09/06/22 09/18/22 Rx levothyroxine 25 mcg tablet 25 mcg PO DAILY #90 tabs 09/06/22 09/18/22 Rx Patient History Medical History CREST (calcinosis, Raynaud's phenomenon, esophageal dysfunction, sclerodactyly, telangiectasia) GERD without esophagitis History of adjustment disorder Iron deficiency anemia Personal history of breast cancer right Personal history of Helicobacter infection Pulmonary fibrosis Recurrent cough Surgical History History of breast reconstruction History of colonoscopy History of subtotal mastectomy of right breast Family History Father Myocardial infarction Sister Breast cancer Ovarian cancer Brother Colon cancer Diabetes Prostate cancer Colorectal cancer Mother Coronary heart disease Diabetes Social History Smoking Status: Never smoker Age Started Using Tobacco: 29; Age Quit Using Tobacco: 39; Years Smoked: 10; Second Hand Exposure: No; Hx Alcohol Use: No Hx Substance Use: No Preferred Language: Kyrgyz Visual Impairment: No Limitations Hearing Ability: Normal marital status: Current Living Situation: Spouse current occupational status: retired Feels Safe at Home: Yes Childhood Exposure to Second-Hand Smoke: Yes caffeine: No Dental Care, Regularly: Yes Physical Activity Frequency: Daily Seatbelt Use: always Sunscreen Use: Yes Review of Systems Review of Systems: All systems reviewed & are unremarkable except as noted in HPI & below Physical Exam Physical Exam: Patient is in no distress She is not complaining of any abdominal pain Her abdomen is moderately distended She does have some bowel sounds It is nontender and does not have any peritoneal signs She has dry mucous membranes Constitutional: well developed; no acute distress Eyes: + anicteric sclerae Respiratory: normal respiratory effort; no respiratory distress Cardiovascular: Rate/Rhythm: regular rate Gastrointestinal (Abdomen): Inspection/Auscultation: + abdomen distended Musculoskeletal: Head/Neck/Chest: head atraumatic Skin: no rashes, warm and dry Neurologic: awake Psychiatric: Orientation: alert Results & Data ([facility]) Vital Signs (Past 12 Hours) Vital Signs Temp Pulse Pulse Resp BP BP Pulse Ox 09/18/22 15:00 91 H 16 137/82 96 09/18/22 13:46 98 09/18/22 13:46 92 H 16 139/95 98 09/18/22 13:03 36.6 C 99 H 16 129/83 97 O2 Del Method 09/18/22 15:00 Room Air 09/18/22 13:46 Room Air 09/18/22 13:46 Room Air 09/18/22 13:03 Laboratory Results I reviewed her laboratories Diagnostic Findings I reviewed her CAT scan PG Care Time/CCT Total # of Minutes Spent Total Time Spent with Patient: Total time spent is greater than 50% in coordination of care (as documented) at patient's floor/unit and/or counseling patient: Coding Level of Care Code 75898 Initial Inpt Care Lvl 3 Diagnoses SBO (small bowel obstruction) K56.609
--- NOTE | 2022-09-18 15:51 | History & Physical Report ---
Date of Service September 18, 2022 Assessment & Plan (1) SBO (small bowel obstruction): Plan: - Bowel Rest with NPO, IVFs and NGT - Surgery consulted and are following - Continue to closely monitor abdominal exam, labs and KUB - Will start Heparin 5000 units SQ BID for VTE (2) Vomiting: Plan: NPO IVFs Prn Zofran as needed (3) Personal history of breast cancer: (4) CREST (calcinosis, Raynaud's phenomenon, esophageal dysfunction, sclerodactyly, telangiectasia): (5) Dyslipidemia: (6) Hypothyroidism: (7) Impaired fasting glucose: (8) B-cell lymphoma: History of Present Illness Chief Complaint: Vomiting Primary Care Provider: EARL Arriola Attending: Dr Boykin This patient is a 72 year old female with a past medical history of CREST syndrome, hx of breast cancer (s/p Right mastectomy and radiation and chemo therapy in 1987), B cell Lymphoma (s/p chemotherapy 2013), GERD, hypothyroidism, Dyslipidemia, Impaired fasting glucose, hx of CARINA and osteopenia who presented to [place] emergency department today with complaints of vomiting since last evening. Patient tells me that last evening about 8 PM while sitting watching TV she had sudden onset of nausea followed by nonbloody nonbilious emesis. She states she continued to vomit all night and has been unable to keep any foods down. She tried having some hot tea today and continued to vomit. She denies any abdominal pain, chest pain, SOB, fever or chills, or any ill contacts. She denies ever having symptoms like this in the past. Patient states she had 2 episode of loose watery stools today but denies any hematochezia, melena or BRB VA. She denies any unintentional weight loss, any previous abdominal surgeries or any personal or family history of inflammatory bowel disease. Patient denies ever having a bowel obstruction in the past. She tells me that she had a normal colonoscopy in 2014 and is to have another in 2024. Patient was evaluated in the ED and was found to have an elevated WBC of 23.7, glucose level of 146 with normal BMP, LFTs and Lipase also normal. SARS negative. CXR with no acute disease. CTAP with IV contrast revealed IMPRESSION: 1. Small bowel obstruction with under distended large bowel and distal transition point only, compatible with high-grade partial small bowel obstruction. Vascular swirl is seen in the right lower quadrant however there is no evidence of closed loop obstruction. No bowel ischemia is seen. 2. Particular interstitial thickening in bronchial wall thickening in the lower lungs favored to represent pulmonary fibrosis with or without superimposed infectious/inflammatory bronchitis. Patient tells me that she has been following with her PCP regarding a persistent cough. She denies any hemoptysis. She states the chronic cough is nonproductive. Patient had a CT Chest 09/16/22 1. Asymmetric pulmonary fibrosis most pronounced on the right which has slightly progressed in the interval. 2. Small focal density within the left lung apex measuring 1.7 cm. This may also represent an area of scarring. However, [address] follow-up recommended to ensure stability. 3. There are 2 new subcentimeter pulmonary nodules measure up to 4 mm. These can also be followed up on [address] 4. A single enlarged subcarinal lymph node measuring 2.8 x 1.9 cm. This bears watching on future examinations. 5. A subacute/healing left anterior seventh rib fracture. 6. Additional findings as described above. Allergies Allergy/AdvReac Type Severity Reaction Status Date / Time nickel AdvReac Severe RASH- Verified 09/21/22 15:14 HANDS AND OTHER AREAS BREAK OUT Home Medications Medication Instructions Recorded Confirmed Type Lactobacillus acidophilus 1 1,000 mmu cells PO DAILY 01/06/20 09/22/22 History billion cell tablet ascorbic acid (vitamin C) 100 mg 100 mg PO DAILY 01/06/20 09/22/22 History tablet calcium carbonate 600 mg calcium 600 mg PO DAILY 01/06/20 09/22/22 History (1,500 mg) tablet cyanocobalamin (vitamin B-12) 1,000 mcg PO DAILY 01/06/20 09/22/22 History 1,000 mcg tablet coenzyme Q10 100 mg capsule (Co 100 mg PO DAILY 01/22/20 09/22/22 History Q-10) [id number]-pqizfjyti-sav C-Mn 500 1 cap PO DAILY 01/22/20 09/22/22 History mg-400 mg capsule (Glucosamine Chondroitin Maximum Strength) omega-3 fatty acids [Fish Oil] 1 ea PO DAILY 01/22/20 09/22/22 History ferrous fumarate 324 mg (106 mg 324 mg PO DAILY 01/28/22 09/22/22 History iron) tablet omeprazole 20 mg capsule,delayed 20 mg PO DAILY #90 caps 06/04/22 09/22/22 Rx release desoximetasone 0.25 % topical 1 applic topical DAILY #60 grams 06/10/22 09/22/22 Rx ointment gabapentin 800 mg tablet 800 mg PO TID #270 tabs 08/23/22 09/22/22 Rx albuterol 90 mcg/actuation aerosol 90 mcg inhalation DAILY 09/02/22 09/22/22 History inhaler benzonatate 100 mg capsule 100 mg PO TID PRN cough #30 caps 09/02/22 09/22/22 Rx baclofen 10 mg tablet 10 mg PO BID #180 tabs 09/06/22 09/22/22 Rx levothyroxine 25 mcg tablet 25 mcg PO DAILY #90 tabs 09/06/22 09/22/22 Rx Portable Oxygen #1 ea 09/24/22 09/24/22 Rx fluticasone propionate 50 1 spray intranasal DAILY #9.9 grams 09/24/22 09/24/22 Rx mcg/actuation nasal spray,suspension (Allergy Relief (fluticasone)) Past Med/Surg History Medical History CREST (calcinosis, Raynaud's phenomenon, esophageal dysfunction, sclerodactyly, telangiectasia) GERD without esophagitis History of adjustment disorder Iron deficiency anemia Personal history of breast cancer right Personal history of Helicobacter infection Pulmonary fibrosis Recurrent cough Surgical History History of breast reconstruction History of colonoscopy History of subtotal mastectomy of right breast Family History Father Myocardial infarction Sister Breast cancer Ovarian cancer Brother Colon cancer Diabetes Prostate cancer Colorectal cancer Mother Coronary heart disease Diabetes Social History (Updated 09/21/22 @ 15:16 by SURY Prado) Smoking Status: Former smoker Tobacco Type: Cigarettes Age Started Using Tobacco: 29; Age Quit Using Tobacco: 39; packs per day: 0.25; Second Hand Exposure: No; Hx Alcohol Use: No Hx Substance Use: No Preferred Language: Belarusian Communication Ability: Effective Visual Impairment: No Limitations Hearing Ability: Normal Orthopedic Designer Required: No Beliefs That Will Affect Care: None marital status: Current Living Situation: Spouse current occupational status: retired Feels Safe at Home: Yes Childhood Exposure to Second-Hand Smoke: Yes caffeine: No Dental Care, Regularly: Yes Physical Activity Frequency: Daily Seatbelt Use: always Sunscreen Use: Yes Assistive Devices: None Review of Systems Review of Systems: All ROS negative unless stated otherwise inthe HPI Physical Exam Constitutional: WD/WN, vitals as above Eyes: PERRL, conjunctivae normal, anicteric sclerae ENMT: external ear and nose normal, oropharynx normal Neck: trachea midline, no thyromegaly Respiratory: normal respiratory effort, lungs clear to auscultation Cardiovascular: Rate/Rhythm: regular rate and regular rhythm Gastrointestinal (Abdomen): Inspection/Auscultation: abdomen normal to inspection and + hypoactive bowel sounds Abdomen is soft, nontender and no R/R/G noted Skin: no rashes, warm and dry Neurologic: PERRL, EOMI, accommodation nl, no face palsy, no dysarthria Psychiatric: A+Ox3, euthymic affect Lymphatic: no cervical or axillary lymphadenopathy Results & Data Results & Data ([facility]) Vital Signs (Past 12 Hours) Vital Signs Temp Pulse Pulse Resp BP BP Pulse Ox 09/18/22 15:00 91 H 16 137/82 96 09/18/22 13:46 98 09/18/22 13:46 92 H 16 139/95 98 09/18/22 13:03 36.6 C 99 H 16 129/83 97 O2 Del Method 09/18/22 15:00 Room Air 09/18/22 13:46 Room Air 09/18/22 13:46 Room Air 09/18/22 13:03 Critical Care Results & Data Vital Signs (Past 12 Hours) Vital Signs Temp Pulse Pulse Resp BP BP Pulse Ox 09/18/22 15:00 91 H 16 137/82 96 09/18/22 13:46 98 09/18/22 13:46 92 H 16 139/95 98 09/18/22 13:03 36.6 C 99 H 16 129/83 97 O2 Del Method 09/18/22 15:00 Room Air 09/18/22 13:46 Room Air 09/18/22 13:46 Room Air 09/18/22 13:03 Lab & Micro Results (Past 24 Hours) No Data to Display No Data to Display No Data to Display Diagnostic Findings (Past 24 Hours) Abdomen/Pelvis CT 09/18/22 13:24 CT abd pelvis IV con only CLINICAL HISTORY: vomiting TECHNIQUE: Helical axial images of the abdomen and pelvis were obtained and displayed. Automated dose lowering techniques and/or adjustment according to patient size were utilized for this exam. This exam was performed with intravenous contrast. CT DOSE: 510.04 mGy.cm COMPARISON: Comparison is made to PET/CT 2014 FINDINGS: Lower chest: Reticular interstitial thickening, groundglass opacity, and bronchiectasis noted. Liver: Unremarkable. No focal lesions are seen. Gallbladder and biliary tree: No calcified gallstones. Normal caliber wall. No intra- or extrahepatic biliary ductal dilation. Pancreas: Unremarkable, no focal lesions. Spleen: Unremarkable. Adrenals: Unremarkable. Kidneys and ureters: Subcentimeter hypodensities are too small to characterize. Bladder: Unremarkable. Reproductive organs: Unremarkable. Bowel: The colon is decompressed. The appendix is normal. There are multiple dilated loops of small bowel with air-fluid levels. There is a distal transition point in the ileum, no proximal transition point is seen. Lymph nodes Retroperitoneal: Unremarkable. Pelvic: Unremarkable. Mesenteric: Unremarkable. Peritoneum: Free fluid is seen in the pelvis. Vessels: Atherosclerotic calcifications are seen. Vascular swirling is seen in the right lower quadrant about the transition point. Abdominal wall: Unremarkable. Bones: Unremarkable. IMPRESSION: 1. Small bowel obstruction with under distended large bowel and distal transition point only, compatible with high-grade partial small bowel obstruction. Vascular swirl is seen in the right lower quadrant however there is no evidence of closed loop obstruction. No bowel ischemia is seen. 2. Particular interstitial thickening in bronchial wall thickening in the lower lungs favored to represent pulmonary fibrosis with or without superimposed infectious/inflammatory bronchitis. ACT 112: Negative or not required by law. Electronically signed by: Kofi Villatoro M.D. 09/18/2022 2:47 PM Chest X-Ray 09/18/22 13:24 XR chest 1V portable CLINICAL HISTORY: vomiting TECHNIQUE: Single frontal radiograph of the chest was obtained. Comparison: Comparison is made to chest radiograph 11/26/2021 FINDINGS: No lines and tubes are seen. The cardiomediastinal silhouette is normal. Lungs are underinflated but clear. Trace right pleural plaques are seen. No evidence of pleural effusion or pneumothorax. Right axillary clips are noted. IMPRESSION: No acute chest disease. ACT 112: Negative or not required by law. Electronically signed by: Kofi Villatoro M.D. 09/18/2022 2:03 PM I & O Totals 24 Hours 09/17/22 09/18/22 09/19/22 06:59 06:59 05:59 Intake Total 1120 / 1120 Balance 1120 / 1120 Cumulative 09/18/22 12:59 thru 09/18/22 15:34 Intake Total 1120 Balance 1120 RT Ventilator Mngmt (Last Documented) Ventilator Ordered Settings Respiratory Rate 16 09/18/22 15:00 Ventilator - PT Measurements Respiratory Rate 16 Code Status & VTE Plan Code Status DNR/DNI Discussion with patient and her who tell me that they had been DNR/DNI and wish to continue this code status VTE Prophylaxis Plan VTE Prophylaxis will be ordered: Yes Supervising Physician Co-Signing Physician Notes Patient seen and examined at bedside. During face to face encounter, I obtained a history and physical examination. I reviewed above note and agree with it. I discussed plan of care with patient and APC Ysabel Patient will be admitted for SBO. Recommend NG tube, and NPO. will monitor PG Care Time/CCT Total # of Minutes Spent Total Time Spent: 50 Total Time Spent with Patient: Total time spent is greater than 50% in coordination of care (as documented) at patient's floor/unit and/or counseling patient: Coding Level of Care Code 04540 Initial Inpt Care Lvl 3 Medical Decision Making High Complexity Diagnoses SBO (small bowel obstruction) K56.609 Vomiting R11.2 Nausea presence: with nausea Vomiting type: unspecified Personal history of breast cancer Z85.3 CREST (calcinosis, Raynaud's phenomenon, esophageal dysfunction, sclerodactyly, telangiectasia) M34.1 Dyslipidemia E78.5 Hypothyroidism E03.9 Impaired fasting glucose R73.01 B-cell lymphoma C85.10 Time Spent (min) 50 (1) Vomiting Nausea presence: with nausea Vomiting type: unspecified Qualified Code(s): R11.2 - Nausea with vomiting, unspecified
[2022-09-18] MEDS: LACTATED RINGER'S 1,000 ML IV SCH (20:52)
[2022-09-18] MEDS ORDERED: MELATONIN 3 MG TAB PO PRN (22:52)
[2022-09-18] MEDS: HEPARIN SOD 5,000 UNIT/0.5 ML VIAL SQ SCH (23:01)
--- NOTE | 2022-09-19 05:04 | Surgery Progress Note ---
Date of Service September 19, 2022 Assessment & Plan (1) SBO (small bowel obstruction): Plan: Maintain n.p.o. status Maintain NG tube to suction until further improvement of abdominal exam is noted Continue IV fluid for hydration Continue analgesics Continue antiemetics Once patient has further improvement of her abdominal exam consideration be taken removing NG tube and slowly advancing diet beginning with clear liquids Admission and Anticipated Discharge Date Admission Date: September 18, 2022 Supervising Physician Co-Signing Physician Notes Dr. Coolpatient said she is passing some gas and had a bowel movement She would like to have the NG tube removed but does not want it put back in My concern is for her initial findings-I think it may be best to try to have a contrast study done via the NG tube with CT And see how it progresses through the bowel prior to removing her NG Continue other nonoperative care for now CT is ordered Subjective Patient is resting comfortably in bed. She notes that her abdominal pain that was present at time of admission has improved somewhat. She notes that she is passing a small amount of flatus and even had a very small bowel movement in the past 12 hours. She denies any nausea or vomiting. No shortness of breath. Physical Exam Gastrointestinal (Abdomen): Bowel sounds are hypoactive. Abdomen is mildly distended. There is no rebound tenderness or guarding but a small amount of pain was noted with palpation just to the right of the umbilicus. NG tube is in place. Results & Data ([facility]) Vital Signs (Past 12 Hours) Vital Signs Temp Pulse Resp BP Pulse Ox O2 Del Method 09/18/22 22:17 37.0 C 98 H 18 138/71 93 Room Air 09/18/22 18:33 Room Air PG Care Time/CCT Total # of Minutes Spent Total Time Spent with Patient: Total time spent is greater than 50% in coordination of care (as documented) at patient's floor/unit and/or counseling patient: Coding Level of Care Code 19528 Subseq Hosp Care Lvl 2 Diagnoses SBO (small bowel obstruction) K56.609
[2022-09-19] MEDS: LACTATED RINGER'S 1,000 ML IV SCH (05:12)
[2022-09-19 06:13] LABS: Hematocrit (blood only) 37.4 % (34.1-44.9); Hemoglobin 12.1 g/dl (12.0-16.0); Mean Corpuscular Hemoglobin 28.5 pg (25.0-34.0); Mean Corpuscular Hgb Conc 32.4 g/dL (32.0-36.0); Mean Platelet Volume 9.7 fL (9.4-12.3); Platelet Count 365 K/uL (130-400); RDW Coefficient of Variation 13.9 % (11.5-14.5); RDW Standard Deviation 44.3 fL (36.4-46.3); Red Blood Count 4.25 M/uL (3.93-5.22); White Blood Count 13.71 K/ul (4.8-10.8)
[2022-09-19 06:38] LABS: BUN Creatinine Ratio 13.4 (10-20); Creatinine Clr Calc Pharmacy 76.8 ml/min; Est GFR (African American) 102.5 ml/min; Est GFR (Non-African American) 88.4 ml/min; Potassium 3.4 mmol/L (3.5-5.1)
[2022-09-19] MEDS: HEPARIN SOD 5,000 UNIT/0.5 ML VIAL SQ SCH ×2 (07:49→19:59)
--- NOTE | 2022-09-19 08:05 | XRay Report ---
KUB CLINICAL HISTORY: r/o sbo COMPARISON STUDY: CT of the abdomen and pelvis September 18, 2022. FINDINGS: Tip of nasogastric tube is within the proximal body of the stomach. Multiple mildly dilated loops of small bowel are noted. Small bowel dilatation has improved since prior CT. There are pelvic surgical clips. IMPRESSION: Small bowel dilatation, decreased since prior exam. The findings suggest a persistent but improving small bowel obstruction. ACT 112: Negative or not required by law. Electronically signed by: Delon Thompson M.D. 09/19/2022 8:03 AM
--- NOTE | 2022-09-19 08:28 | Hospitalist Progress Note ---
Date of Service September 19, 2022 Assessment & Plan (1) SBO (small bowel obstruction): Plan: - Improving - Surgery consulted and are following - CT today with contrast through NGT revealed oral contrast to the colon and improving SBO - Surgery ordered Clear liquids and to remove NGT - Continue Heparin 5000 units SQ BID for VTE (2) Vomiting: Plan: Improved IVFs Prn Zofran as needed (3) Personal history of breast cancer: (4) CREST (calcinosis, Raynaud's phenomenon, esophageal dysfunction, sclerodactyly, telangiectasia): (5) Dyslipidemia: (6) Hypothyroidism: Plan: - when tolerating clear liquids can restart Levothyroxine (7) Impaired fasting glucose: (8) B-cell lymphoma: Admission and Anticipated Discharge Date Admission Date: September 18, 2022 Subjective This patient is a 72 year old female with a past medical history of CREST syndrome, hx of breast cancer (s/p Right mastectomy and radiation and chemo therapy in 1987), B cell Lymphoma (s/p chemotherapy 2013), GERD, hypothyroidism, Dyslipidemia, Impaired fasting glucose, hx of CARINA and osteopenia who presented to [place] emergency department today with complaints of vomiting x [address] imaging revealed a SBO. Patient has never had a SBO in the past. She had a normal colonoscopy in 2014. She has had no abdominal surgeries. Patient did have radiation and chemotherapy in 1987 for breast cancer and chemotherapy in 2013 for B Cell Lymphoma. NGT to suction was placed and patient continues to be NPO. KUB this AM revealed persistent but improving SBO. Surgery is also following. Patient states she is feeling much better and is passing flatus. Labs today reveal WBC improved to 13.7 (23.2), K 3.4 (3.6), Ca 8 (9.5) Surgery is following and ordered a CT with contrast through the NGT which revealed 1. Significant improvement in small bowel dilatation following nasogastric tube insertion. Oral contrast reaches the colon. Mild residual small bowel dilatation. The findings suggest an improving small bowel obstruction. 2. Small amount of abdominal and pelvic ascites. 3. Trace right pleural effusion. Surgery then removed NGT and ordered clear liquid diet Review of Systems 2 Review of Systems: All ROS negative unless stated otherwise inthe HPI Physical Exam Constitutional: WD/WN, vitals as above Eyes: PERRL, conjunctivae normal, anicteric sclerae ENMT: external ear and nose normal, oropharynx normal Neck: trachea midline, no thyromegaly Respiratory: normal respiratory effort, lungs clear to auscultation Cardiovascular: Rate/Rhythm: regular rate and regular rhythm Gastrointestinal (Abdomen): Inspection/Auscultation: abdomen normal to inspection and + hypoactive bowel sounds Skin: no rashes, warm and dry Neurologic: PERRL, EOMI, accommodation nl, no face palsy, no dysarthria Psychiatric: A+Ox3, euthymic affect Lymphatic: no cervical or axillary lymphadenopathy Results & Data Results & Data ([facility]) Vital Signs (Past 12 Hours) Vital Signs Temp Pulse Pulse Resp BP Pulse Ox O2 Del Method 09/19/22 07:24 36.6 C 88 18 129/78 96 Room Air 09/18/22 22:17 37.0 C 98 H 18 138/71 93 Room Air Laboratory Results Laboratory Results - last 24 hr 09/18/22 09/19/22 09/19/22 13:44 05:31 05:31 WBC 13.71 H RBC 4.25 Hgb 12.1 Hct 37.4 MCV 88.0 MCH 28.5 MCHC 32.4 RDW Std Deviation 44.3 RDW Coeff of Colette 13.9 Plt Count 365 MPV 9.7 Sodium 139 Potassium 3.4 L Chloride 107 Carbon Dioxide 26 Anion Gap 6 BUN 9 Creatinine 0.67 Est Cr Clr Drug Dosing 76.8 Est GFR ( Amer) 102.5 Est GFR (Non-Af Amer) 88.4 BUN/Creatinine Ratio 13.4 Glucose 100 H Calcium 8.0 L Urine Color Urine Appearance Urine pH Ur Specific [place] Urine Protein Urine Glucose (UA) Urine Ketones Urine Blood Urine Nitrite Urine Bilirubin Urine Urobilinogen Ur Leukocyte Esterase SARS-CoV-2, RNA, NAAT NEGATIVE 09/19/22 06:44 WBC RBC Hgb Hct MCV MCH MCHC RDW Std Deviation RDW Coeff of Colette Plt Count MPV Sodium Potassium Chloride Carbon Dioxide Anion Gap BUN Creatinine Est Cr Clr Drug Dosing Est GFR ( Amer) Est GFR (Non-Af Amer) BUN/Creatinine Ratio Glucose Calcium Urine Color Yellow Urine Appearance Clear Urine pH 7.5 Ur Specific [place] 1.013 Urine Protein Negative Urine Glucose (UA) Negative Urine Ketones Negative Urine Blood Negative Urine Nitrite Negative Urine Bilirubin Negative Urine Urobilinogen Negative Ur Leukocyte Esterase Negative SARS-CoV-2, RNA, NAAT Diagnostic Findings Abdomen/Pelvis CT 09/19/22 07:19 CT OF THE ABDOMEN AND PELVIS WITH CONTRAST CLINICAL HISTORY: Abdominal pain. Evaluate for small bowel obstruction. COMPARISON STUDY: CT of the abdomen and pelvis September 18, 2022 and KUB performed earlier today. TECHNIQUE: Following IV administration of 83 mL of Optiray, axial images of the abdomen and pelvis were obtained from the lung bases to the proximal femurs. Images were reviewed in the axial, sagittal, and coronal planes. IV contrast was administered without complication. Automated exposure control was utilized for the study. A dose lowering technique was utilized adhering to the principles of ALARA. Oral contrast was administered. CT DOSE: 563.99 mGy.cm FINDINGS: Trace right pleural effusion is noted. Tip of nasogastric tube is within the body of the stomach. A small amount of abdominal and pelvic ascites is similar to prior CT. No pneumatosis, free air or portal venous gas is present. There is hepatic steatosis. Spleen, adrenal glands, left kidney and pancreas are unremarkable. A few low-attenuation right renal lesions are too small to characterize but are probably benign. There is no hydronephrosis. No abdominal or pelvic lymphadenopathy is present. Small bowel dilatation has significantly improved since CT of September 18, 2022. A small amount of oral contrast reaches the colon. Swirling appearance within the mesentery has improved. A few loops of mildly dilated small bowel measure up to 3 cm in caliber. No fluid collection to suggest an abscess is present. Major vasculature is patent. IMPRESSION: 1. Significant improvement in small bowel dilatation following nasogastric tube insertion. Oral contrast reaches the colon. Mild residual small bowel dilatation. The findings suggest an improving small bowel obstruction. 2. Small amount of abdominal and pelvic ascites. 3. Trace right pleural effusion. ACT 112: Negative or not required by law. Electronically signed by: Delon Thompson M.D. 09/19/2022 10:32 AM KUB X-Ray 09/19/22 08:51 KUB CLINICAL HISTORY: r/o sbo COMPARISON STUDY: CT of the abdomen and pelvis September 18, 2022. FINDINGS: Tip of nasogastric tube is within the proximal body of the stomach. Multiple mildly dilated loops of small bowel are noted. Small bowel dilatation has improved since prior CT. There are pelvic surgical clips. IMPRESSION: Small bowel dilatation, decreased since prior exam. The findings suggest a persistent but improving small bowel obstruction. ACT 112: Negative or not required by law. Electronically signed by: Delon Thompson M.D. 09/19/2022 8:03 AM PG Care Time/CCT Total # of Minutes Spent Total Time Spent with Patient: Total time spent is greater than 50% in coordination of care (as documented) at patient's floor/unit and/or counseling patient: Coding Level of Care Code 47411 Subseq Hosp Care Lvl 3 Diagnoses SBO (small bowel obstruction) K56.609 Vomiting R11.2 Nausea presence: with nausea Vomiting type: unspecified Personal history of breast cancer Z85.3 CREST (calcinosis, Raynaud's phenomenon, esophageal dysfunction, sclerodactyly, telangiectasia) M34.1 Dyslipidemia E78.5 Hypothyroidism E03.9 Impaired fasting glucose R73.01 B-cell lymphoma C85.10 Time Spent (min) 30 (1) Vomiting Nausea presence: with nausea Vomiting type: unspecified Qualified Code(s): R11.2 - Nausea with vomiting, unspecified
[2022-09-19 09:06] LABS: Appearance Urine Clear (Clear); Bilirubin Urine Negative (Negative); Blood Urine Negative (Negative); Color Urine Yellow; Glucose Urine UA Negative (Negative); Ketones Urine Negative (Negative); Leukocyte Esterase Urine Negative (Negative); Nitrite Urine Negative (Negative); Protein Urine Negative (Negative); Specific Gravity Urine 1.013 (1.000-1.030); Urobilinogen Urine Negative (Negative); pH Urine 7.5 (4.5-7.5)
[2022-09-19] MEDS ORDERED: OPTIRAY 350 100ml IV ONE (10:19)
--- NOTE | 2022-09-19 10:35 | CT Scan Report ---
CT OF THE ABDOMEN AND PELVIS WITH CONTRAST CLINICAL HISTORY: Abdominal pain. Evaluate for small bowel obstruction. COMPARISON STUDY: CT of the abdomen and pelvis September 18, 2022 and KUB performed earlier today. TECHNIQUE: Following IV administration of 83 mL of Optiray, axial images of the abdomen and pelvis we re obtained from the lung bases to the proximal femurs. Images were reviewed in the axial, sagittal, and coronal planes. IV contrast was administered without complication. Automated exposure control wa s utilized for the study. A dose lowering technique was utilized adhering to the principles of ALARA . Oral contrast was administered. CT DOSE: 563.99 mGy.cm FINDINGS: Trace right pleural effusion is noted. Tip of nasogastric tube is within the body of the st omach. A small amount of abdominal and pelvic ascites is similar to prior CT. No pneumatosis, free ai r or portal venous gas is present. There is hepatic steatosis. Spleen, adrenal glands, left kidney an d pancreas are unremarkable. A few low-attenuation right renal lesions are too small to characterize but are probably benign. There is no hydronephrosis. No abdominal or pelvic lymphadenopathy is presen t. Small bowel dilatation has significantly improved since CT of September 18, 2022. A small amount of oral contrast reaches the colon. Swirling appearance within the mesentery has improved. A few loops o f mildly dilated small bowel measure up to 3 cm in caliber. No fluid collection to suggest an abscess is present. Major vasculature is patent. IMPRESSION: 1. Significant improvement in small bowel dilatation following nasogastric tube insertion. Oral contr ast reaches the colon. Mild residual small bowel dilatation. The findings suggest an improving small bowel obstruction. 2. Small amount of abdominal and pelvic ascites. 3. Trace right pleural effusion. ACT 112: Negative or not required by law. Electronically signed by: Delon Thompson M.D. 09/19/2022 10:32 AM
--- NOTE | 2022-09-19 10:38 | Surgery Progress Note ---
Date of Service September 19, 2022 Assessment & Plan (1) SBO (small bowel obstruction): Plan: Patient underwent CT scan with contrast Contrast traversed quickly into the colon Some mildly dilated small bowel We will DC NG tube and begin clear liquids Monitor the patient Admission and Anticipated Discharge Date Admission Date: September 18, 2022 Results & Data ([facility]) Vital Signs (Past 12 Hours) Vital Signs Temp Pulse Resp BP Pulse Ox O2 Del Method 09/19/22 07:24 36.6 C 88 18 129/78 96 Room Air PG Care Time/CCT Total # of Minutes Spent Total Time Spent with Patient: Total time spent is greater than 50% in coordination of care (as documented) at patient's floor/unit and/or counseling patient: Coding Level of Care Code None Diagnoses SBO (small bowel obstruction) K56.609
[2022-09-19] MEDS: PANTOprazole 40 MG in SYRINGE 0 ML IV SCH (13:26)
--- NOTE | 2022-09-19 13:44 | Electrocardiogram Report ---
Test Reason : Blood Pressure : / mmHG Vent. Rate : 094 BPM Atrial Rate : 094 BPM P-R Int : 188 ms QRS Dur : 094 ms QT Int : 396 ms P-R-T Axes : 041 -18 111 degrees QTc Int : 495 ms Normal sinus rhythm Left atrial enlargement Left ventricular hypertrophy Poor R wave progression, consider anterior VT vs. lead placement vs. LVH Possible Lateral infarct , age undetermined Abnormal ECG When compared with ECG of 08-JAN-2016 10:25, Significant changes have occurred QT has lengthened Confirmed by Richard Will ([id number]) on 09/19/2022 1:43:45 PM Referred By: REFERRED SELF Confirmed By:Richard Will
[2022-09-20] MEDS ORDERED: LEVOTHYROXINE SODIUM 25 MCG TABLET PO SCH (06:30)
[2022-09-20 07:39] LABS: Hematocrit (blood only) 40.9 % (34.1-44.9); Hemoglobin 13.5 g/dl (12.0-16.0); Mean Corpuscular Hemoglobin 28.8 pg (25.0-34.0); Mean Corpuscular Volume 87.2 fL (80.0-100.0); Mean Platelet Volume 9.4 fL (9.4-12.3); Platelet Count 365 K/uL (130-400); RDW Coefficient of Variation 13.5 % (11.5-14.5); RDW Standard Deviation 42.7 fL (36.4-46.3); Red Blood Count 4.69 M/uL (3.93-5.22); White Blood Count 10.22 K/ul (4.8-10.8)
[2022-09-20 08:09] LABS: BUN Creatinine Ratio 10.8 (10-20); Calcium 8.9 mg/dl (8.5-10.1); Creatinine Clr Calc Pharmacy 69.6 ml/min; Est GFR (African American) 94.5 ml/min; Est GFR (Non-African American) 81.5 ml/min; Potassium 3.1 mmol/L (3.5-5.1)
--- NOTE | 2022-09-20 08:53 | Surgery Progress Note ---
Date of Service September 20, 2022 Assessment & Plan (1) SBO (small bowel obstruction): Plan: resolved sbo adv to low fiber d/c from surg standpoint does not need surg f/u Admission and Anticipated Discharge Date Admission Date: September 18, 2022 Subjective tolerating diet- clears wants to go home Review of Systems Review of Systems: All systems reviewed & are unremarkable except as noted in HPI & below Physical Exam Physical Exam: doing well Results & Data ([facility]) Vital Signs (Past 12 Hours) Vital Signs Temp Pulse Pulse Resp BP Pulse Ox O2 Del Method 09/20/22 07:51 37.1 C 80 16 144/90 H 95 Room Air 09/20/22 07:02 36.6 C 84 16 127/73 94 Room Air 09/20/22 01:46 136/77 09/19/22 21:22 37.0 C 105 H 18 168/88 H 96 Room Air PG Care Time/CCT Total # of Minutes Spent Total Time Spent with Patient: Total time spent is greater than 50% in coordination of care (as documented) at patient's floor/unit and/or counseling patient: Coding Level of Care Code 73212 Inpt Consult Level 2 Diagnoses SBO (small bowel obstruction) K56.609
[2022-09-20] MEDS: HEPARIN SOD 5,000 UNIT/0.5 ML VIAL SQ SCH (10:35)
[2022-09-20] MEDS: PANTOprazole 40 MG in SYRINGE 0 ML IV SCH (13:55)
--- NOTE | 2022-09-26 21:03 | Discharge Summary ---
Date of Service September 20, 2022 Admission HPI Per Admitting Provider Attending: Dr Boykin This patient is a 72 year old female with a past medical history of CREST syndrome, hx of breast cancer (s/p Right mastectomy and radiation and chemo therapy in 1987), B cell Lymphoma (s/p chemotherapy 2013), GERD, hypothyroidism, Dyslipidemia, Impaired fasting glucose, hx of CARINA and osteopenia who presented to [place] emergency department today with complaints of vomiting since last evening. Patient tells me that last evening about 8 PM while sitting watching TV she had sudden onset of nausea followed by nonbloody nonbilious emesis. She states she continued to vomit all night and has been unable to keep any foods down. She tried having some hot tea today and continued to vomit. She denies any abdominal pain, chest pain, SOB, fever or chills, or any ill contacts. She denies ever having symptoms like this in the past. Patient states she had 2 episode of loose watery stools today but denies any hematochezia, melena or BRB IA. She denies any unintentional weight loss, any previous abdominal surgeries or any personal or family history of inflammatory bowel disease. Patient denies ever having a bowel obstruction in the past. She tells me that she had a normal colonoscopy in 2014 and is to have another in 2024. Patient was evaluated in the ED and was found to have an elevated WBC of 23.7, glucose level of 146 with normal BMP, LFTs and Lipase also normal. SARS negative. CXR with no acute disease. CTAP with IV contrast revealed IMPRESSION: 1. Small bowel obstruction with under distended large bowel and distal transition point only, compatible with high-grade partial small bowel obstruction. Vascular swirl is seen in the right lower quadrant however there is no evidence of closed loop obstruction. No bowel ischemia is seen. 2. Particular interstitial thickening in bronchial wall thickening in the lower lungs favored to represent pulmonary fibrosis with or without superimposed infectious/inflammatory bronchitis. Patient tells me that she has been following with her PCP regarding a persistent cough. She denies any hemoptysis. She states the chronic cough is nonproductive. Patient had a CT Chest 09/16/22 1. Asymmetric pulmonary fibrosis most pronounced on the right which has slightly progressed in the interval. 2. Small focal density within the left lung apex measuring 1.7 cm. This may also represent an area of scarring. However, [address] follow-up recommended to ensure stability. 3. There are 2 new subcentimeter pulmonary nodules measure up to 4 mm. These can also be followed up on [address] 4. A single enlarged subcarinal lymph node measuring 2.8 x 1.9 cm. This bears watching on future examinations. 5. A subacute/healing left anterior seventh rib fracture. 6. Additional findings as described above. Principal Diagnosis Small bowel obstruction Discharge Exam Constitutional: WD/WN, vitals as above Eyes: PERRL, conjunctivae normal, anicteric sclerae ENMT: external ear and nose normal, oropharynx normal Neck: trachea midline, no thyromegaly Respiratory: normal respiratory effort, lungs clear to auscultation Cardiovascular: Rate/Rhythm: regular rate and regular rhythm Gastrointestinal (Abdomen): Inspection/Auscultation: abdomen normal to inspection and + hypoactive bowel sounds Skin: no rashes, warm and dry Neurologic: PERRL, EOMI, accommodation nl, no face palsy, no dysarthria Psychiatric: A+Ox3, euthymic affect Lymphatic: no cervical or axillary lymphadenopathy Discharge Data Allergies Allergy/AdvReac Type Severity Reaction Status Date / Time nickel AdvReac Severe RASH- Verified 09/21/22 15:14 HANDS AND OTHER AREAS BREAK OUT Consultations 09/18/22 15:07 Consult General Surgery Stat ED Decision to Admit Stat Ordered Studies 09/18/22 13:24 CT abd pelvis IV con only Stat 09/19/22 07:19 CT abd pelvis oral and IV con Urgent Hospital Course (1) SBO (small bowel obstruction): - Resolved after treatment with bowel Rest with NPO, IVFs and NGT - Surgery consulted -tolerating low residue diet. - Will start Heparin 5000 units SQ BID for VTE (2) Vomiting: NPO IVFs Prn Zofran as needed (3) Personal history of breast cancer: (4) CREST (calcinosis, Raynaud's phenomenon, esophageal dysfunction, sclerodactyly, telangiectasia): (5) Dyslipidemia: (6) Hypothyroidism: (7) Impaired fasting glucose: (8) B-cell lymphoma: Total Time Total Time Spent Total Time Spent (In Minutes): 35 Discharge Plan Discharge Items Patient Disposition: Home - Self-Care Reason For Visit: SMALL BOWEL OBSTRUCTION Discharge Diagnosis: SBO Activity: Resume your previous activity Non-emergency contact: Primary Care Provider Call non-emergency contact if: you have any medication questions Follow-up/Referrals: Stephany Gilbert CRNP [Primary Care Provider] - Diet: Low Fiber Addtl Attending Provider Instructions: Recommend to continue a low fiber diet over the next month. Recommend followup with your PCP in 1-2 weeks Diet details A low-fiber diet limits the types of vegetables, fruits and grains that you can eat. Occasionally, your doctor also may want you to limit the amount of milk and milk products in your diet. Milk doesn't contain fiber, but it may contribute to discomfort or diarrhea, especially if you're lactose intolerant. The ability to digest food varies from person to person. Depending on your condition and tolerance, your doctor may recommend a diet that is more or less restricted. If you're eating a low-fiber diet, be sure to read food labels. Foods you might not expect such as yogurt, ice cream, cereal and even beverages can have added fiber. Look for foods that have no more than 1-2 grams of fiber in one se rving. Avoid these foods and products made with them: * Nuts, seeds, dried fruit and coconut * Whole grains, popcorn, wheat germ and bran * Brown rice, wild rice, oatmeal, granola, shredded wheat, quinoa, bulgur and barley * Dried beans, baked beans, fine beans, peas and lentils * [place] peanut butter * Fruits and vegetables except those noted below Choose these foods: * Tender meat, fish and poultry, ham, miller, shellfish, and lunch meat * Eggs, tofu and creamy peanut butter * Dairy products if tolerated * White rice and pasta * Baked goods made with refined wheat or rye flour, such as bread, biscuits, pancakes, waffles, bagels, saltines and kaveh crackers * Hot and cold cereals that have less than 2 grams of dietary fiber in a single serving, such as those made from rice * Canned or well-cooked potatoes, carrots and green beans * Plain tomato sauce * Vegetable and fruit juices * Bananas, melons, applesauce and canned peaches (no skin) * Butter, margarine, oils and salad dressings without seeds A typical menu might look like this: Breakfast * Cornflakes with milk * White toast, creamy peanut butter, jelly * Fruit juice * Coffee Mid-morning snack * Yogurt without seeds * Water or other beverage Noon meal * [place] sandwich on white bread with mayonnaise * Tomato soup * Canned peaches * Milk or other beverage Afternoon snack * Cheese slices * Saltine crackers * Water or other beverage Evening meal * Meat loaf * Mashed potatoes with butter * Cooked carrots * Applesauce * Milk or other beverage Prepare all foods so that they're tender. Good cooking methods include simmering, poaching, stewing, steaming and braising. Baking or microwaving in a covered dish is another option. Keep in mind that you may have fewer bowel movements and smaller stools while you're following a low-fiber diet. To avoid constipation, you may need to drink extra fluids. Pending Studies at Discharge: No Stand-Alone Forms: My [facility] [employer], Smoking Cessation Medications and DC Order Prescriptions: Continued omeprazole 20 mg capsule,delayed release(DR/EC) 20 mg PO DAILY Qty: 90 3RF desoximetasone 0.25 % ointment 1 applic topical DAILY Qty: 60 0RF Rx Instructions: Apply to areas of hands at bedtime x 2 weeks as needed for flaring. gabapentin 800 mg tablet 800 mg PO TID Qty: 270 1RF levothyroxine 25 mcg tablet 25 mcg PO DAILY Qty: 90 3RF baclofen 10 mg tablet 10 mg PO BID Qty: 180 1RF Lactobacillus acidophilus 1 billion cell tablet 1,000 mmu cells PO DAILY cyanocobalamin (vitamin B-12) 1,000 mcg tablet 1,000 mcg PO DAILY ascorbic acid (vitamin C) 100 mg tablet 100 mg PO DAILY calcium carbonate 600 mg calcium (1,500 mg) tablet 600 mg PO DAILY omega-3 fatty acids 1 ea PO DAILY coenzyme Q10 [Co Q-10] 100 mg capsule 100 mg PO DAILY [id number] C-Mn [Glucosamine Chondroitin MaxStr] 500-400 mg capsule 1 cap PO DAILY ferrous fumarate 324 mg (106 mg iron) tablet 324 mg PO DAILY Rx Instructions: Three times weekly 324 mg PO; albuterol 90 mcg/actuation aerosol 90 mcg inhalation DAILY benzonatate 100 mg capsule 100 mg PO TID PRN (Reason: cough) Qty: 30 0RF No Action (DME) Portable Oxygen Misc See Rx Instructions .MEDSUPPLY Qty: 1 0RF Rx Instructions: Oxygen 2 liters continuous via nasal cannula on exertion with portable concentrator. OSWALD 99 fluticasone propionate [Allergy Relief (fluticasone)] 50 mcg/actuation spray,suspension 1 spray intranasal DAILY Qty: 9.9 1RF Rx Instructions: administer into each nostril once daily Discharge Orders: Discharge Order (Routine); Ordered 09/20/22 Ordered By: Maxime Boykin Admission Data Admit Date/Time: 09/18/22 16:54 Attending Provider: Maxime Boykin Admit Provider: Maxime Boykin Primary Care Provider: Stephany Gilbert Other Providers: Ivan Cool ; Maxime Boykin Other Interventions: Discharge Summary Assessment (RN) Last Done: 09/20/22 13:57 Coding Level of Care Code D/C DAY MANAGEMENT >30 MINS Diagnoses SBO (small bowel obstruction) K56.609 Vomiting R11.2 Nausea presence: with nausea Vomiting type: unspecified Personal history of breast cancer Z85.3 CREST (calcinosis, Raynaud's phenomenon, esophageal dysfunction, sclerodactyly, telangiectasia) M34.1 Dyslipidemia E78.5 Hypothyroidism E03.9 Impaired fasting glucose R73.01 B-cell lymphoma C85.10
== END 2022-09-20 14:09 | disposition home or self-care (01) | DRG 389 ==
LOC: ED 12:59 → 3E 16:54

== ENCOUNTER 2024-08-08 13:44 | Inpatient (IN) ==
[2024-08-08 15:39] LABS: Hematocrit (blood only) 25.6 % (37.0-47.0); Hemoglobin 7.3 g/dl (12.0-16.0); Mean Corpuscular Hemoglobin 23.9 pg (25.0-34.0); Mean Corpuscular Hgb Conc 28.5 g/dL (32.0-36.0); Mean Corpuscular Volume 83.9 fL (80.0-100.0); Mean Platelet Volume 8.9 fL (9.4-12.4); Platelet Count 527 K/uL (130-400); RDW Coefficient of Variation 16.3 % (11.5-14.5); Red Blood Count 3.05 M/uL (4.20-5.40)
--- NOTE | 2024-08-08 15:48 | Emergency Department Note ---
Impression & Plan Acute GI bleeding, Symptomatic anemia ED Provider Note NAME: KEVIN HUNTER AGE: 74 SEX: F : 1950 ARRIVES VIA: Walk-In INFORMANT: Patient ED PROVIDER(S): Tru Davalos DO CHIEF COMPLAINT: Tired HPI: Patient is a 74-year-old female with a past medical history of anemia, polyneuropathy, osteopenia, GERD, crest and interstitial lung disease who presents to the ER for low hemoglobin. Patient followed with her camp nurse who sent her in as hemoglobin dropped from 10 to 7. Patient also notes dark stools which have been present for the past 2 weeks intermittently. Denies any headache or change in vision. No chest pain or shortness of breath. No nausea, vomiting, or diarrhea. No dysuria, urgency, or frequency. No other exacerbating or remitting factors. Denies any alcohol or significant NSAID use. ADDITIONAL HISTORY OBTAINED: Per HPI Chronic Medical/Social Conditions Affecting Care: Per HPI PAST MEDICAL HISTORY:See Below PAST SURGICAL HISTORY:See Below FAMILY HISTORY:See Below SOCIAL HISTORY:See Below HOME MEDICATIONS:See Below ALLERGIES:See Below VITALS:See Below PHYSICAL EXAMINATION: GENERAL: Sitting up in bed, alert, well appearing, well nourished, no distress, non-toxic EYE EXAM: normal conjunctiva. PERRL and EOM's grossly intact. OROPHARYNX: no exudate, no erythema, lips, buccal mucosa, and tongue normal and mucous membranes are moist NECK: supple, no nuchal rigidity, no adenopathy, non-tender LUNGS: Clear to auscultation. Normal chest wall mechanics HEART: no murmurs, S1 normal and S2 normal ABDOMEN: abdomen soft, non-tender, normo-active bowel sounds, no masses, no rebound or guarding. UPPER EXTREMITIES: upper extremities are grossly normal. LOWER EXTREMITIES: No pitting edema. NEURO EXAM: Normal sensorium, cranial nerves II-XII grossly intact, normal speech, no gross weakness of arms, no gross weakness of legs. No drift. Finger to nose intact. Gross sensation intact. MEDICAL DECISION MAKING: Patient is a 74-year-old female who presents ER for the above-stated complaint. Rectal was performed by myself at bedside hide which was heme positive. Labs show mild leukocytosis of 11,000. Anemia at 7.3 down from 10 in February. INR unremarkable. BMP along with LFTs bilirubin is unremarkable. Troponin was negative. Rectal heme-negative. Patient was typed and crossed and given 1 unit of PRBC. She was consented at bedside by myself. Discussed case with the hospitalist for further evaluation management treatment. Patient was given Protonix drip and bolus. Consults/Care Managements Discussions: Per [facility] Triage Nursing notes reviewed. Limited review of prior medical records performed Vital Signs: reviewed and remarkable for tachy Differential diagnosis: Infection, dehydration, metabolic abnormality, hypo/hyperglycemia, electrolyte disturbance, anemia, hypoxia, cardiac sources, intracerebral event, toxicologic, neurologic, as well as other pathologies. ER treatment provided: See below Diagnostics interpreted by me include EKG and cardiac monitoring as listed below: -Cardiac Monitoring: An order was placed for continuous cardiac monitoring. The monitor shows a rate of 101 with sinus rhythm. -ECG: Sinus rhythm rate of 105 Left axis No PVCs QTc 441 -Laboratory studies:Interpreted by me as stated above in MDM and shown below. Imaging studies: Xrays: As interpreted by me: Portable AP upright 1 view of the chest shows no focal infiltrate CTs show: none Procedures:none Critical Care: I have personally spent 32 minutes of critical care time in the direct management of this patient. This includes bedside care, interpretation of diagnostic studies, and testing, discussion with consultants, patient, and family members, and other required patient management activities. This 32 minutes is in excess of all separately billable procedures. Past Med/Surg History Problem List (Updated 08/08/24 @ 18:56 by Tru Davalos DO) Symptomatic anemia (Acute) Acute GI bleeding (Acute) Systemic sclerosis GI bleed Rotator cuff tear Atherosclerosis of right common carotid artery Anemia (Acute) Tendinitis of right rotator cuff (Acute) Right knee pain (Acute) Polyneuropathy (Acute) Other specified disorders of bone density and structure, other site (Acute) Osteopenia (Acute) Iron deficiency anemia (Acute) Impaired fasting glucose (Acute) Hypothyroidism (Acute) Hyperglobulinemia (Acute) GERD without esophagitis (Acute) Dyslipidemia (Acute) CREST (calcinosis, Raynaud's phenomenon, esophageal dysfunction, sclerodactyly, telangiectasia) (Acute) Leg cramping Routine gynecological examination Biceps tendonitis on right Recurrent cough Personal history of breast cancer right Pulmonary fibrosis Vomiting (Acute) Acute dehydration (Acute) ILD (interstitial lung disease) Multiple pulmonary nodules LAD (lymphadenopathy), mediastinal Ex-smoker Chronic cough Upper airway cough syndrome Right shoulder pain Glenohumeral arthritis History of lymphoma Systemic sclerosis with limited cutaneous involvement 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 Medical History SBO (small bowel obstruction) Surgical History History of reconstruction of right breast History of colonoscopy History of subtotal mastectomy of right breast Family History Father Myocardial infarction Sister Breast cancer Ovarian cancer Brother Colon cancer Diabetes Prostate cancer Colorectal cancer Mother Coronary heart disease Diabetes Social History Smoking Status: Former smoker Tobacco Type: Cigarettes Age Started Using Tobacco: 29; Age Quit Using Tobacco: 39; packs per day: 0.25; Second Hand Exposure: No; Do You Dip or Chew Tobacco: No; Hx Alcohol Use: No Hx Substance Use: No Preferred Language: Faroese Communication Ability: Effective Visual Impairment: No Limitations Hearing Ability: Normal Academic Physician Required: No Beliefs That Will Affect Care: None marital status: Current Living Situation: Spouse current occupational status: retired Feels Safe at Home: Yes Childhood Exposure to Second-Hand Smoke: Yes Diet: regular caffeine: No Dental Care, Regularly: Yes Physical Activity Frequency: Daily Seatbelt Use: always Sunscreen Use: Yes Assistive Devices: Denture - Upper, Denture - Lower and Nebulizer Allergies Allergies Allergy/AdvReac Type Severity Reaction Status Date / Time nickel AdvReac Severe RASH- Verified 08/08/24 17:35 HANDS AND OTHER AREAS BREAK OUT Home Meds Home Medications Medication Instructions Recorded Confirmed calcium carbonate 600 mg PO QAM 01/06/20 08/08/24 cyanocobalamin (vitamin B-12) 1,000 mcg PO .tuesday12/22/22 08/08/24 1,000 mcg tablet ferrous fumarate 324 mg (106 mg 324 mg PO .MW 12/22/22 08/08/24 iron) tablet ascorbic acid (vitamin C) 1,000 mg 1 g PO QAM 08/08/24 08/08/24 tablet (Vitamin C) cholecalciferol (vitamin D3) 25 25 mcg PO QAM 08/08/24 08/08/24 mcg (1,000 unit) tablet (Vitamin D3) gabapentin 800 mg tablet 800 mg PO UD 08/08/24 08/08/24 levothyroxine 25 mcg tablet 25 mcg PO DAILYBB 08/08/24 08/08/24 mycophenolate mofetil 500 mg 1,000 mg PO .ON HOLD 08/08/24 08/08/24 tablet (CellCept) omega-3 fatty acids 500 mg capsule 500 mg PO QAM 08/08/24 08/08/24 rosuvastatin 10 mg tablet 10 mg PO HS 08/08/24 08/08/24 valsartan 80 mg tablet 80 mg PO QAM 08/08/24 08/08/24 Previous Rx's Medication Instructions Recorded albuterol sulfate 90 mcg/actuation 2 puff inhalation Q6H PRN 12/30/22 aerosol inhaler Shortness Of Breath Or Wheezing #18 grams desoximetasone 0.25 % topical 1 applic topical DAILY #60 grams 09/19/23 ointment omeprazole 40 mg capsule,delayed 40 mg PO BID #180 caps 04/17/24 release baclofen 10 mg tablet See Rx Instructions PO .COMPLEX 07/20/24 #270 tabs Results & Data (ED) Vital Signs Vital Signs - 24 hr 08/08/24 14:09 08/08/24 15:47 08/08/24 15:47 Temperature 37.2 C Temperature Source Temporal Artery Scan Pulse Rate 113 H 101 H Pulse Rate [Apical] 101 H Pulse Rhythm [Apical] Pulse Strength [Apical] Respiratory Rate 18 16 16 Respiratory Effort / Characteristics Non-Labored Spontaneous Respiratory Depth Normal Respiratory Pattern Regular Blood Pressure 135/76 Blood Pressure [Left Arm] 121/79 Blood Pressure Mean 95 Blood Pressure Mean [Left Arm] 93 Blood Pressure Position [Left Arm] Pulse Oximetry 96 98 98 Oxygen Delivery Method Room Air Room Air Room Air Sepsis Recent Fever Within 48 Hours No Sepsis New/Unexplained Change in Mental Status N/A Sepsis Action Taken by Nursing No Action Required 08/08/24 16:14 08/08/24 17:00 Temperature Temperature Source Pulse Rate 101 H Pulse Rate [Apical] 104 H Pulse Rhythm [Apical] Regular Pulse Strength [Apical] Normal Respiratory Rate 20 Respiratory Effort / Characteristics Non-Labored Respiratory Depth Normal Respiratory Pattern Regular Blood Pressure Blood Pressure [Left Arm] 136/75 Blood Pressure Mean Blood Pressure Mean [Left Arm] 95 Blood Pressure Position [Left Arm] Sitting Pulse Oximetry 96 Oxygen Delivery Method Room Air Sepsis Recent Fever Within 48 Hours Sepsis New/Unexplained Change in Mental Status Sepsis Action Taken by Nursing Laboratory Data 08/08/24 Unknown 08/08/24 Unknown Lab Results 08/08/24 08/08/24 08/08/24 Range/Units 15:19 16:38 Unknown WBC 11.30 H (4.8-10.8) K/ul RBC 3.05 L (4.20-5.40) M/uL Hgb 7.3 L (12.0-16.0) g/dl Hct 25.6 L (37.0-47.0) % MCV 83.9 (80.0-100.0) fL MCH 23.9 L (25.0-34.0) pg MCHC 28.5 L (32.0-36.0) g/dL RDW Std Deviation 49.0 H (36.4-46.3) fL RDW Coeff of Colette 16.3 H (11.5-14.5) % Plt Count 527 H (130-400) K/uL MPV 8.9 L (9.4-12.4) fL PT 11.4 (9.0-12.0) Seconds INR 1.1 (0.9-1.1) APTT 27 (21-31) Seconds PTT Ratio 1.0 Sodium 135 L (136-145) mmol/L Potassium 3.8 (3.5-5.1) mmol/L Chloride 103 (98-107) mmol/L Carbon Dioxide 25 (21-32) mmol/L Anion Gap 7 (3-11) BUN 11 (6-23) mg/dl Creatinine 0.78 (0.6-1.2) mg/dl Est Cr Clr Drug Dosing 62.5 ml/min Est GFR ( Amer) 87.4 ml/min Est GFR (Non-Af Amer) 75.4 ml/min BUN/Creatinine Ratio 14.1 (10-20) Glucose 94 (70-99(Fasting)) mg/dl Calcium 8.8 (8.6-10.3) mg/dl Iron 42 (35-150) mcg/dl TIBC 312 (250-450) mcg/dl Unsaturated IBC 270 (155-355) mcg/dl Transferrin % Sat 13 L (15-50) % Total Bilirubin 0.3 (0.2-1.0) mg/dl AST 25 (13-39) U/L ALT 17 (7-52) U/L Alkaline Phosphatase 73 (34-104) U/L Troponin I High Sens 8.0 (0-14) pg/ml Total Protein 7.5 (6.0-8.3) gm/dl Albumin 3.3 L (3.4-5.0) gm/dl Globulin 4.2 H (2.5-4.0) gm/dl Albumin/Globulin Ratio 0.8 L (0.9-2) Blood Type O Positive Blood Type Recheck O Positive Antibody Screen NEGATIVE Crossmatch See Detail Administered Medications Discontinued Medications Pantoprazole Sodium 80 mg/ (Dextrose) 120 mls @ 480 mls/hr IV NOW ONE Stop: 08/08/24 16:44 Last Admin: 08/08/24 18:47 Dose: 480 mls/hr Documented By: JOSE Pantoprazole Sodium (Pantoprazole Bolus/Drip) 1 each IV NOW STA Stop: 08/08/24 16:31 Last Admin: 08/08/24 18:42 Dose: Not Given Documented By: JOSE Discharge Plan Visit Data Chief Complaint: Abnormal Labs/Diagnostic Testing Stated Complaint: DR HALEY, ABNORMAL LABS ED Provider: Tru Davalos Discharge Problem: Acute GI bleeding, Symptomatic anemia Forms Stand Alone Forms: My [facility] Prescriptions Prescriptions: No Action desoximetasone 0.25 % ointment 1 applic topical DAILY Qty: 60 0RF Rx Instructions: Apply to areas of hands at bedtime x 2 weeks as needed for flaring. omeprazole 40 mg capsule,delayed release(DR/EC) 40 mg PO BID Qty: 180 3RF baclofen 10 mg tablet See Rx Instructions PO .COMPLEX Qty: 270 1RF Rx Instructions: 1 tab every AM, 2 tabs every HS orally for leg cramping; calcium carbonate 600 mg calcium (1,500 mg) tablet 600 mg PO QAM cyanocobalamin (vitamin B-12) 1,000 mcg tablet 1,000 mcg PO .tuesday ferrous fumarate 324 mg (106 mg iron) tablet 324 mg PO .MWF Rx Instructions: Three times weekly 324 mg PO; albuterol sulfate 90 mcg/actuation HFA aerosol inhaler 2 puff inhalation Q6H PRN (Reason: Shortness Of Breath Or Wheezing) Qty: 18 3RF rosuvastatin 10 mg tablet 10 mg PO HS ascorbic acid (vitamin C) [Vitamin C] 1,000 mg Tablet 1 g PO QAM gabapentin 800 mg tablet 800 mg PO UD Rx Instructions: take 1 tablet in morning and 2 tablets at night levothyroxine 25 mcg tablet 25 mcg PO DAILYBB mycophenolate mofetil [CellCept] 500 mg tablet 1,000 mg PO .ON HOLD cholecalciferol (vitamin D3) [Vitamin D3] 25 mcg (1,000 unit) Tablet 25 mcg PO QAM Fish Oil 500 mg Capsule 500 mg PO QAM valsartan 80 mg tablet 80 mg PO QAM Referrals Referrals: Stephany Gilbert CRNP [Primary Care Provider] -
[2024-08-08 15:56] LABS: Albumin Globulin Ratio 0.8 (0.9-2); Albumin Level 3.3 gm/dl (3.4-5.0); BUN Creatinine Ratio 14.1 (10-20); Bilirubin,Total 0.3 mg/dl (0.2-1.0); Calcium 8.8 mg/dl (8.6-10.3); Creatinine Clr Calc Pharmacy 62.5 ml/min; Est GFR (African American) 87.4 ml/min; Est GFR (Non-African American) 75.4 ml/min; Globulin 4.2 gm/dl (2.5-4.0); Potassium 3.8 mmol/L (3.5-5.1); Total Protein 7.5 gm/dl (6.0-8.3)
[2024-08-08 16:11] LABS: INR 1.1 (0.9-1.1); Partial Thromboplastin Time 27 Seconds (21-31); Prothrombin Time 11.4 Seconds (9.0-12.0)
[2024-08-08] MEDS ORDERED: SODIUM CHLORIDE 0.9% 250 ML IV PRN (16:30)
--- NOTE | 2024-08-08 17:38 | History & Physical Report ---
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 Melanotic stools on and off x 2 weeks, as well as associated fatigue. Hgb baseline around 10, at 7.0-> 7.3 in ED. BUN 11. H/o diverticula. - Admit to med/surg - Hgb 7.3; 1 unit PRBC ordered for transfusion - Pending H&H following transfusion, at 0000, and 0400 (08/09) - Repeat CBC q6hr - GI consulted for likely UGI bleed - PPI bolus given, drip continued - NPO - Pending iron panel, ferritin, b12, folate levels Appreciate GI consult (2) Systemic sclerosis: Plan: H/o systemic sclerosis, CREST syndrome - Home CellCept 1 g twice daily; No transplant. will hold secondary to NPO status - May continue topical medications for flare of symptoms. (3) Anemia: Plan: Suspect CARINA secondary to UGI bleed - As above Plan B-cell Lymphoma- No recurrence; no immunosuppression Dispo: Admit to med/surg VTE: SCDs Code: DNR/DNI Admission and Anticipated Discharge Date Admission Date: 08/08/2024 History of Present Illness Chief Complaint: Melena, fatigue x 2 weeks Primary Care Provider: EARL Arriola Pt is a 74 y/o F w PMHx anemia, CREST syndrome, systemic sclerosis, GERD, pulmonary fibrosis, ILD, GAVE, B-cell lymphoma, who presents to ED for low hemoglobin. States she was referred by her PCP for low blood counts and told to come to ED. Most recent colonoscopy 11/05 revealing internal hemorrhoids and di verticula in sigmoid colon; EGD 11/05, revealed GAVE; had followed with [facility]. ED course: WBC 11.3, RBC 3.05, Hgb 7.0-> 7.3 (baseline around 10), Hct 25.6, Na 135, BUN 11, albumin 3.3, globulin 0.8. EKG reveals sinus tachycardia 105, per my review. Normotensive in ED. Pt presents with abnormal labs per PCP. States that on the day of admission, she went to have her lab work done at an outpatient facility and around 1300 that day, was called regarding a low Hgb. Reports that for 2 weeks she has had worsening and ongoing fatigue, and has been experiencing at least 1 melanotic stool per week. Pt has had this happen once before "many" years ago, and states that her Hgb was around 5, requiring admission and management. Denies recent medication changes or NSAID use. Denies chest pain or pressure, SOB, or syncope. No headache, vision changes, recent URI, palpitations, cough, dyspnea, abdominal pain, N/V/D/C, numbness, tingling, or abnormal bruising. , Mitesh, is in the room at the time. Reports a suspected decrease in her overall food intake; no additional concerns to add. Allergies Allergy/AdvReac Type Severity Reaction Status Date / Time nickel AdvReac Severe RASH- Verified 08/08/24 17:35 HANDS AND OTHER AREAS BREAK OUT Home Medications Medication Instructions Recorded Confirmed Type calcium carbonate 600 mg PO QAM 01/06/20 08/08/24 History cyanocobalamin (vitamin B-12) 1,000 mcg PO .tuesday12/22/22 08/08/24 History 1,000 mcg tablet ferrous fumarate 324 mg (106 mg 324 mg PO .MW 12/22/22 08/08/24 History iron) tablet albuterol sulfate 90 mcg/actuation 2 puff inhalation Q6H PRN 12/30/22 08/08/24 Rx aerosol inhaler Shortness Of Breath Or Wheezing #18 grams desoximetasone 0.25 % topical 1 applic topical DAILY #60 grams 09/19/23 08/08/24 Rx ointment omeprazole 40 mg capsule,delayed 40 mg PO BID #180 caps 04/17/24 08/08/24 Rx release baclofen 10 mg tablet See Rx Instructions PO .COMPLEX 07/20/24 08/08/24 Rx #270 tabs ascorbic acid (vitamin C) 1,000 mg 1 g PO QAM 08/08/24 08/08/24 History tablet (Vitamin C) cholecalciferol (vitamin D3) 25 25 mcg PO QAM 08/08/24 08/08/24 History mcg (1,000 unit) tablet (Vitamin D3) gabapentin 800 mg tablet 800 mg PO UD 08/08/24 08/08/24 History levothyroxine 25 mcg tablet 25 mcg PO DAILYBB 08/08/24 08/08/24 History mycophenolate mofetil 500 mg 1,000 mg PO .ON HOLD 08/08/24 08/08/24 History tablet (CellCept) omega-3 fatty acids 500 mg capsule 500 mg PO QAM 08/08/24 08/08/24 History rosuvastatin 10 mg tablet 10 mg PO HS 08/08/24 08/08/24 History valsartan 80 mg tablet 80 mg PO QAM 08/08/24 08/08/24 History Past Med/Surg History Problem List (Updated 08/08/24 @ 18:39 by Stephen Spencer PA-C) Systemic sclerosis GI bleed Rotator cuff tear Atherosclerosis of right common carotid artery Anemia (Acute) Tendinitis of right rotator cuff (Acute) Right knee pain (Acute) Polyneuropathy (Acute) Other specified disorders of bone density and structure, other site (Acute) Osteopenia (Acute) Iron deficiency anemia (Acute) Impaired fasting glucose (Acute) Hypothyroidism (Acute) Hyperglobulinemia (Acute) GERD without esophagitis (Acute) Dyslipidemia (Acute) CREST (calcinosis, Raynaud's phenomenon, esophageal dysfunction, sclerodactyly, telangiectasia) (Acute) Leg cramping Routine gynecological examination Biceps tendonitis on right Recurrent cough Personal history of breast cancer right Pulmonary fibrosis Vomiting (Acute) Acute dehydration (Acute) ILD (interstitial lung disease) Multiple pulmonary nodules LAD (lymphadenopathy), mediastinal Ex-smoker Chronic cough Upper airway cough syndrome Right shoulder pain Glenohumeral arthritis History of lymphoma Systemic sclerosis with limited cutaneous involvement 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 Medical History SBO (small bowel obstruction) Surgical History History of reconstruction of right breast History of colonoscopy History of subtotal mastectomy of right breast Family History Father Myocardial infarction Sister Breast cancer Ovarian cancer Brother Colon cancer Diabetes Prostate cancer Colorectal cancer Mother Coronary heart disease Diabetes Social History Smoking Status: Former smoker Tobacco Type: Cigarettes Age Started Using Tobacco: 29; Age Quit Using Tobacco: 39; packs per day: 0.25; Second Hand Exposure: No; Do You Dip or Chew Tobacco: No; Hx Alcohol Use: No Hx Substance Use: No Preferred Language: Chinese Communication Ability: Effective Visual Impairment: No Limitations Hearing Ability: Normal 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: No Beliefs That Will Affect Care: None marital status: Current Living Situation: Spouse current occupational status: retired Feels Safe at Home: Yes Childhood Exposure to Second-Hand Smoke: Yes Diet: regular caffeine: No Dental Care, Regularly: Yes Physical Activity Frequency: Daily Seatbelt Use: always Sunscreen Use: Yes Assistive Devices: Denture - Upper, Denture - Lower and Nebulizer Review of Systems Constitutional: + fatigue and + weight loss (15lbs in 6 months); no fever, no chills, no sweats and no weakness Ear, Nose, Mouth, Throat: no nasal congestion, no post nasal drip, no sinus pain/pressure and no sore throat Respiratory: no cough and no dyspnea Cardiovascular: no chest pain, no dyspnea, no palpitations, no lightheadedness, no syncope and no edema Gastrointestinal: + melena (x 2 weeks); no bloating, no ea rly satiety, no nausea, no vomiting, no constipation and no diarrhea/loose stools Genitourinary: no dysuria Musculoskeletal: no problem reported Neurologic: no falls, no tingling, no numbness, no syncope and no headache(s) Physical Exam Constitutional: WD/WN, vitals as above Eyes: PERRL, conjunctivae normal, anicteric sclerae ENMT: Throat: no posterior oropharynx abnormality Respiratory: normal respiratory effort, lungs clear to auscultation Cardiovascular: RRR, no murmur, no edema Gastrointestinal (Abdomen): normal bowel sounds, soft, nontender, no hepatosplenomegaly Skin: + pallor; no jaundice No abnormal bruising Results & Data Results & Data Vital Signs (Past 12 Hours) Vital Signs Temp Pulse Pulse Resp BP BP Pulse Ox 08/08/24 16:14 101 H 08/08/24 15:47 101 H 16 98 08/08/24 15:47 101 H 16 121/79 98 08/08/24 14:09 37.2 C 113 H 18 135/76 96 O2 Del Method 08/08/24 16:14 08/08/24 15:47 Room Air 09/25/24 15:47 Room Air 08/08/24 14:09 Room Air Laboratory Results Lab Results 08/08/24 08/08/24 08/08/24 Range/Units 15:19 16:38 Unknown WBC 11.30 H (4.8-10.8) K/ul RBC 3.05 L (4.20-5.40) M/uL Hgb 7.3 L (12.0-16.0) g/dl Hct 25.6 L (37.0-47.0) % MCV 83.9 (80.0-100.0) fL MCH 23.9 L (25.0-34.0) pg MCHC 28.5 L (32.0-36.0) g/dL RDW Std Deviation 49.0 H (36.4-46.3) fL RDW Coeff of Colette 16.3 H (11.5-14.5) % Plt Count 527 H (130-400) K/uL MPV 8.9 L (9.4-12.4) fL PT 11.4 (9.0-12.0) Seconds INR 1.1 (0.9-1.1) APTT 27 (21-31) Seconds PTT Ratio 1.0 Sodium 135 L (136-145) mmol/L Potassium 3.8 (3.5-5.1) mmol/L Chloride 103 (98-107) mmol/L Carbon Dioxide 25 (21-32) mmol/L Anion Gap 7 (3-11) BUN 11 (6-23) mg/dl Creatinine 0.78 (0.6-1.2) mg/dl Est Cr Clr Drug Dosing 62.5 ml/min Est GFR ( Amer) 87.4 ml/min Est GFR (Non-Af Amer) 75.4 ml/min BUN/Creatinine Ratio 14.1 (10-20) Glucose 94 (70-99(Fasting)) mg/dl Calcium 8.8 (8.6-10.3) mg/dl Total Bilirubin 0.3 (0.2-1.0) mg/dl AST 25 (13-39) U/L ALT 17 (7-52) U/L Alkaline Phosphatase 73 (34-104) U/L Troponin I High Sens 8.0 (0-14) pg/ml Total Protein 7.5 (6.0-8.3) gm/dl Albumin 3.3 L (3.4-5.0) gm/dl Globulin 4.2 H (2.5-4.0) gm/dl Albumin/Globulin Ratio 0.8 L (0.9-2) Blood Type O Positive Blood Type Recheck O Positive Antibody Screen NEGATIVE Crossmatch See Detail ECG Additional Comments: Sinus tachycardia, rate 105, per my review. Code Status & VTE Plan Code Status Code: DNR/DNI Supervising Physician Co-Signing Physician Notes Patient seen and examined, chart reviewed, case discussed with Stephen Spencer PA-C and I agree with the assessment and plan as above except as otherwise noted Labs and images reviewed 74-year-old female with a past medical history of GERD, crest syndrome, pulmonary fibrosis, ILD, upper airway cough syndrome, systemic sclerosis, GAVE, B-cell lymphoma who presents with a low hemoglobin. She was referred by self regional healthcare home provider. She has had 2 weeks of progressive weakness, dyspnea, melena. BUN is not elevated. Hgb baseline ~10. 7.0/7.8 in ER. No chest pain, chest pressure, or syncope. No epigastric pain. No NSAID use. She is not on blood thinners. Last colo/egd 2022 --> GAVE on EGD, colo with hemmorhoids and diverticula. Saw [facility] at that time. She is tachycardic and normotensive on admitting assessment. Seen at the bedside, she ports she overall feels well but is concerned about the melena. 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 No questions or concerns at bedside. Lungs are clear, slight tachycardia, regular. UGIB -Hemoglobin 7.3. 1 unit ordered for transfusion Will check posttransfusion H&H, and then H&H every 6 hours GI consulted. DDx includes upper GI bleed, GAVE.? Slightly more distal bleed given her BUN is normal. Does have a history of diverticulosis however melena is more consistent with upper GI bleed Will continue PPI drip Strict n.p.o. Normotensive at time of admitting assessment, nontoxic Iron panel, B12, folate pending. Systemic sclerosis Patient is on CellCept 1 g twice daily. She is not a transplant patient. This is temporarily held due to strict n.p.o. PG Care Time/CCT Total # of Minutes Spent Total Time Spent with Patient: Total time spent is greater than 50% in coordination of care (as documented) at patient's floor/unit and/or counseling patient: Coding Level of Care Code None Diagnoses GI bleed K92.2 Systemic sclerosis M34.9 Anemia D64.9
[2024-08-08] MEDS ORDERED: ALBUTEROL HFA 8 GM INHALER INH PRN (17:56)
--- NOTE | 2024-08-08 18:02 | Billing Data ---
Date of Service August 08, 2024 Coding Level of Care Code 02074 INT INP/OBS CARE
[2024-08-08] MEDS: PANTOPRAZOLE BOLUS/DRIP IV STA (18:42)
[2024-08-08] MEDS: PANTOprazole 80 MG in DEXTROSE 5% 100 ML IV ONE (18:47)
[2024-08-08 19:07] LABS: Folate (Folic Acid),Ser orPlas > 22.30 ng/ml (>5.38)
[2024-08-08 19:08] LABS: Vitamin B12 675 pg/ml (180-914)
[2024-08-08] MEDS: PANTOprazole 40 MG in DEXTROSE 5% MINI-B 100 ML IV SCH (19:10)
[2024-08-08] MEDS ORDERED: FLUOCINONIDE 0.05% OINT 15 GM TUBE EXT PRN (19:45)
[2024-08-08] MEDS ORDERED: Nursing to Pharmacy Communication SCH ×2 (21:45→22:30)
[2024-08-08] MEDS: LACTATED RINGER'S 1,000 ML IV SCH (22:18)
[2024-08-09 01:06] LABS: Hematocrit (blood only) 24.9 % (37.0-47.0); Hemoglobin 7.6 g/dl (12.0-16.0)
--- NOTE | 2024-08-09 06:00 | Electrocardiogram Report ---
Test Reason : Blood Pressure : */* mmHG Vent. Rate : 105 BPM Atrial Rate : 105 BPM P-R Int : 168 ms QRS Dur : 94 ms QT Int : 334 ms P-R-T Axes : 60 -15 89 degrees QTcB Int : 441 ms Sinus tachycardia Poor R wave progression, consider anterior VT vs. lead placement vs. LVH Abnormal ECG When compared with ECG of 18-Sep-2022 13:20, QT has shortened Confirmed by Jay Grant ([id number]) on 08/09/2024 6:00:13 AM Referred By: Jordan Velasquez Confirmed By: Jay Grant
[2024-08-09 07:05] LABS: Basophils # (auto) 0.04 K/uL (0.00-0.20); Basophils % (auto) 0.5 %; Eosinophils # (auto) 0.04 K/uL (0.00-0.50); Eosinophils % (auto) 0.5 %; Hematocrit (blood only) 25.4 % (37.0-47.0); Hemoglobin 7.6 g/dl (12.0-16.0); Immature Granulocytes # (auto) 0.16 K/uL (0.01-0.20); Immature Granulocytes % (auto) 1.8 %; Lymphocytes % (auto) 6.9 %; Mean Corpuscular Hemoglobin 24.9 pg (25.0-34.0); Mean Corpuscular Hgb Conc 29.9 g/dL (32.0-36.0); Mean Corpuscular Volume 83.3 fL (80.0-100.0); Mean Platelet Volume 9.1 fL (9.4-12.4); Monocytes # (auto) 1.27 K/uL (0.11-0.59); Monocytes % (auto) 14.6 %; Neutrophils # (auto) 6.61 K/uL (1.40-6.50); Neutrophils % (auto) 75.7 %; Platelet Count 470 K/uL (130-400); RDW Coefficient of Variation 15.9 % (11.5-14.5); RDW Standard Deviation 47.7 fL (36.4-46.3); Red Blood Count 3.05 M/uL (4.20-5.40); White Blood Count 8.72 K/ul (4.8-10.8)
[2024-08-09 07:39] LABS: Polychromasia 1+
[2024-08-09 09:16] LABS: Calcium 8.5 mg/dl (8.6-10.3); Potassium 3.7 mmol/L (3.5-5.1)
[2024-08-09 09:22] LABS: BUN Creatinine Ratio 11.1 (10-20); Creatinine Clr Calc Pharmacy 66.6 ml/min; Est GFR (African American) 96.3 ml/min; Est GFR (Non-African American) 83.1 ml/min
--- NOTE | 2024-08-09 09:45 | Gastrointestinal Consultation ---
Date of Consultation August 09, 2024 Assessment & Plan (1) Symptomatic anemia: Anemia in the setting of intermittent melena, history of CREST Syndrome & GAVE. -Keep NPO for EGD today -Continue IV PPI gtt at this time; can change dosing pending results of EGD -Continue to monitor H/H Supervising Physician Co-Signing Physician Notes I examined the patient and reviewed patient's chart , laboratory data and imaging studies. I agree with with assessment and plan of care as suggested by advanced practice provider. Melena, worsening of anemia in patients with a history of GAVE. Schedule EGD with possible APC History of Present Illness Reason for Consultation: H/o GAVE, Hgb 7, melena Attending Physician: Karen Tucker MD History of Present Illness Patient is a 74 yo female with PMH of anemia, CREST syndrome with systemic sclerosis, GERD, pulmonary fibrosis, ILD, B Cell lymphoma, & history of GAVE who presented to the ED due to outpatient labs being noted to have a low hemoglobin. Patient reports that over the past several weeks she has experienced intermittent melena. She denies NSAID use since this has happened to her in the past. She notes that 1-2 times per week she would see a dark stool, but had no abdominal pain, heartburn, reflux, vomiting. She notes that she has been in her usual health without new medications or new illness recently. She denies chest pain, pressure, SOB, syncope & was genuinely surprised to hear her blood count was low. Last EGD for the same issue was in 10/[address] Garcia of [facility]. She was noted to have esophagitis and erythematous friable mucosa of the stomach consistent with GAVE. She had a colonoscopy in 2022 at the same time that was unremarkable with the exception of diverticulosis & hemorrhoids. H/H at the present time is 7.6/25.4. Previously had a hemoglobin >10 in February 2024 in the [facility]. She notes she may have lost weight unintentionally, but feels she has a good appetite. Allergies Allergy/AdvReac Type Severity Reaction Status Date / Time nickel AdvReac Severe RASH- Verified 08/08/24 17:35 HANDS AND OTHER AREAS BREAK OUT Home Medications Medication Instructions Recorded Confirmed Type calcium carbonate 600 mg PO QAM 01/06/20 08/08/24 History cyanocobalamin (vitamin B-12) 1,000 mcg PO .tuesday12/22/22 08/08/24 History 1,000 mcg tablet ferrous fumarate 324 mg (106 mg 324 mg PO .12/22/22 08/08/24 History iron) tablet albuterol sulfate 90 mcg/actuation 2 puff inhalation Q6H PRN 12/30/22 08/08/24 Rx aerosol inhaler Shortness Of Breath Or Wheezing #18 grams desoximetasone 0.25 % topical 1 applic topical DAILY #60 grams 09/19/23 08/08/24 Rx ointment omeprazole 40 mg capsule,delayed 40 mg PO BID #180 caps 04/17/24 08/08/24 Rx release baclofen 10 mg tablet See Rx Instructions PO .COMPLEX 07/20/24 08/08/24 Rx #270 tabs ascorbic acid (vitamin C) 1,000 mg 1 g PO QAM 08/08/24 08/08/24 History tablet (Vitamin C) cholecalciferol (vitamin D3) 25 25 mcg PO QAM 08/08/24 08/08/24 History mcg (1,000 unit) tablet (Vitamin D3) gabapentin 800 mg tablet 800 mg PO UD 08/08/24 08/08/24 History levothyroxine 25 mcg tablet 25 mcg PO DAILYBB 08/08/24 08/08/24 History mycophenolate mofetil 500 mg 1,000 mg PO .ON HOLD 08/08/24 08/08/24 History tablet (CellCept) omega-3 fatty acids 500 mg capsule 500 mg PO QAM 08/08/24 08/08/24 History rosuvastatin 10 mg tablet 10 mg PO HS 08/08/24 08/08/24 History valsartan 80 mg tablet 80 mg PO QAM 08/08/24 08/08/24 History Patient History Medical History SBO (small bowel obstruction) Surgical History History of reconstruction of right breast History of colonoscopy History of subtotal mastectomy of right breast Family History Father Myocardial infarction Sister Breast cancer Ovarian cancer Brother Colon cancer Diabetes Prostate cancer Colorectal cancer Mother Coronary heart disease Diabetes Social History Smoking Status: Former smoker Tobacco Type: Cigarettes Age Started Using Tobacco: 29; Age Quit Using Tobacco: 39; packs per day: 0.25; Second Hand Exposure: No; Do You Dip or Chew Tobacco: No; Hx Alcohol Use: No Hx Substance Use: No Preferred Language: Belarusian Communication Ability: Effective Visual Impairment: No Limitations Hearing Ability: Normal Pharmacy Customer Care Specialist Required: No Beliefs That Will Affect Care: None marital status: Current Living Situation: Spouse Current Living Situation Comment: lives with current occupational status: retired Feels Safe at Home: Yes Safety Concerns: Feels Safe At This Time Childhood Exposure to Second-Hand Smoke: Yes Diet: regular caffeine: No Dental Care, Regularly: Yes Physical Activity Frequency: Daily Seatbelt Use: always Sunscreen Use: Yes Assistive Devices: Denture - Upper, Denture - Lower and Glasses Review of Systems Constitutional: no fever and no chills Respiratory: no cough and no dyspnea Cardiovascular: no chest pain Gastrointestinal: + melena; no abdominal pain, no heartbur n, no nausea, no vomiting, no coffee ground emesis, no hematemesis, no dysphagia, no change in bowel habits and no diarrhea/loose stools Integumentary: no problem reported Psychiatric: no problem reported Hematologic / Lymphatic: + unexplained weight loss Physical Exam Constitutional: well developed Respiratory: normal respiratory effort Cardiovascular: Rate/Rhythm: regular rate Gastrointestinal (Abdomen): normal bowel sounds, soft, nontender, no hepatosplenomegaly Psychiatric: Orientation: alert and oriented x 3 Results & Data Vital Signs (Past 12 Hours) Vital Signs Temp Pulse Pulse Resp BP BP Pulse Ox 08/09/24 07:40 36.8 C 96 H 20 139/79 96 08/09/24 03:54 36.8 C 80 17 110/69 96 08/08/24 22:19 99 H 08/08/24 22:05 37.2 C 110 H 20 121/68 97 O2 Del Method 08/09/24 07:40 Room Air 08/09/24 03:54 Room Air 08/08/24 22:19 08/08/24 22:05 PG Care Time/CCT Total # of Minutes Spent Total Time Spent with Patient: Total time spent is greater than 50% in coordination of care (as documented) at patient's floor/unit and/or counseling patient: Coding Level of Care Code 22842 INT INP/OBS CARE MIN Diagnoses Symptomatic anemia D64.9
--- NOTE | 2024-08-09 11:11 | Anesthesiology Consultation ---
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 Consults Requested none Proposed Anesthesia Anesthesia Type: MAC History Surgery Operation Date: 08/09/24 16:45 Proposed Procedures p Esophagogastroduodenoscopy Hoa Camara MD Height/Weight Height: 5 ft 4 in Weight: 69.4 kg Allergies Allergy/AdvReac Type Severity Reaction Status Date / Time nickel AdvReac Severe RASH- Verified 08/08/24 17:35 HANDS AND OTHER AREAS BREAK OUT Medications Home Medications Medication Instructions Recorded Confirmed Last Taken calcium carbonate 600 mg PO QAM 01/06/20 08/08/24 08/08/24 cyanocobalamin (vitamin B-12) 1,000 mcg PO .tuesday12/22/22 08/08/24 08/08/24 1,000 mcg tablet ferrous fumarate 324 mg (106 mg 324 mg PO .[facility] 12/22/22 08/08/24 08/08/24 iron) tablet albuterol sulfate 90 mcg/actuation 2 puff inhalation Q6H PRN 12/30/22 08/08/24 Unknown aerosol inhaler Shortness Of Breath Or Wheezing #18 grams desoximetasone 0.25 % topical 1 applic topical DAILY #60 grams 09/19/23 08/08/24 Unknown ointment omeprazole 40 mg capsule,delayed 40 mg PO BID #180 caps 04/17/24 08/08/24 08/08/24 release am dose baclofen 10 mg tablet See Rx Instructions PO .COMPLEX 07/20/24 08/08/24 08/08/24 #270 tabs am ascorbic acid (vitamin C) 1,000 mg 1 g PO QAM 08/08/24 08/08/24 08/08/24 tablet (Vitamin C) cholecalciferol (vitamin D3) 25 25 mcg PO QAM 08/08/24 08/08/24 08/08/24 mcg (1,000 unit) tablet (Vitamin D3) gabapentin 800 mg tablet 800 mg PO UD 08/08/24 08/08/24 08/08/24 levothyroxine 25 mcg tablet 25 mcg PO DAILYBB 08/08/24 08/08/24 08/08/24 mycophenolate mofetil 500 mg 1,000 mg PO .ON HOLD 08/08/24 08/08/24 Unknown tablet (CellCept) omega-3 fatty acids 500 mg capsule 500 mg PO QAM 08/08/24 08/08/24 08/08/24 rosuvastatin 10 mg tablet 10 mg PO HS 08/08/24 08/08/24 08/07/24 valsartan 80 mg tablet 80 mg PO QAM 08/08/24 08/08/24 08/08/24 Active Medications Generic Name Dose Route Start Last Admin Trade Name Alexx PRN Reason Stop Dose Admin Pantoprazole Sodium 40 mg/ 100 mls @ 20 mls/hr 08/08/24 17:00 08/09/24 09:39 Dextrose IV 09/07/24 16:59 8 mg/hr Q5H STUART 20 mls/hr Administration 8 MG/HR Lactated Ringer's 1,000 mls @ 100 mls/hr 08/08/24 20:00 08/09/24 08:14 Lr IV 09/07/24 19:59 100 mls/hr .Q10H STUART Administration Past Medical History Medical History SBO (small bowel obstruction) Past Family History Family History Father Myocardial infarction Sister Breast cancer Ovarian cancer Brother Colon cancer Diabetes Prostate cancer Colorectal cancer Mother Coronary heart disease Diabetes Past Surgical History Surgical History History of reconstruction of right breast History of colonoscopy History of subtotal mastectomy of right breast Social History Smoking Status: Former smoker Do You Dip or Chew Tobacco: No Hx Alcohol Use: No Hx Substance Use: No Physical Exam Vital Signs Last Vital Signs Temp 36.8 C 08/09/24 07:40 Pulse 96 H 08/09/24 07:40 Resp 20 08/09/24 07:40 BP 139/79 08/09/24 07:40 Pulse Ox 96 08/09/24 07:40 O2 Del Method Room Air 08/09/24 07:40 Testing Laboratory Results 08/09/24 05:31 08/09/24 05:31 PT 11.4 Seconds (9.0-12.0) 08/08/24 Unknown INR 1.1 (0.9-1.1) 08/08/24 Unknown APTT 27 Seconds (21-31) 08/08/24 Unknown Blood Type O Positive 08/08/24 15:19 Antibody Screen NEGATIVE 08/08/24 15:19 Electrocardiogram Date: 08/08/24 Test Reason : Blood Pressure : */* mmHG Vent. Rate : 105 BPM Atrial Rate : 105 BPM P-R Int : 168 ms QRS Dur : 94 ms QT Int : 334 ms P-R-T Axes : 60 -15 89 degrees QTcB Int : 441 ms Sinus tachycardia Poor R wave progression, consider anterior OH vs. lead placement vs. LVH Abnormal ECG When compared with ECG of 18-Sep-2022 13:20, QT has shortened Confirmed by Jay Grant ([id number]) on 08/09/2024 6:00:13 AM Chest X-Ray Date: 09/18/22 XR chest 1V portable CLINICAL HISTORY: vomiting TECHNIQUE: Single frontal radiograph of the chest was obtained. Comparison: Comparison is made to chest radiograph 11/26/2021 FINDINGS: No lines and tubes are seen. The cardiomediastinal silhouette is normal. Lungs are underinflated but clear. Trace right pleural plaques are seen. No evidence of pleural effusion or pneumothorax. Right axillary clips are noted. IMPRESSION: No acute chest disease. Echocardiogram Date: 08/03/23 EF: 50 LV Function: normal (low normal) Other Findings: + LVH (mild)
--- NOTE | 2024-08-09 11:30 | Hospitalist Progress Note ---
Date of Service August 09, 2024 Assessment & Plan (1) GI bleed: Plan: H/o of GAVE (10/2023) per EGD; Not currently following GI. Melenic stools on and off x 2 weeks, as well as associated fatigue. Hgb baseline around 10, at 7.0-> 7.3 in ED. BUN 11 repeat on day 1 of admission, 8. H/o diverticula, no history of diverticulitis. - Hgb 7.3; 1 unit PRBC ordered for transfusion - H&H following transfusion 7.6 - Repeat H&H q6hr - GI consulted; recommend EGD today, continue IV PPI drip at this time - PPI bolus given in ED, drip continued - NPO continued - Iron 16, TIBC 308, transferrin 5, ferritin 36; vitamin B12 679, folate 22.3 - Patient has received parenteral iron in the past without adverse reactions - Start Venofer 300 mg IV x 1; additional inpatient doses will be ordered depending on length of stay and clinical condition. Appreciate GI consult EGD with diffuse congestion, erythema and vascular pattern in the entire antrum. No active bleeding, no contact bleeding was seen. Differential diagnosis: Vascular ectasia versus gastropathy versus malignancy. Biopsies were obtained and should be followed Above findings not likely to be amenable to any endoscopic therapy F/u pathology after discharge (2) Systemic sclerosis: Plan: H/o systemic sclerosis, CREST syndrome - Home CellCept 1 g twice daily; No transplant. will hold secondary to NPO status - May continue topical medications for flare of symptoms. (3) Anemia: Plan: Suspect CARINA secondary to UGI bleed - As above -recommend close monitoring of CBC after discharge at least once monthly and can have outpatient IV iron or blood transfusions as an outpatient if needed Acute blood loss anemia Plan B-cell Lymphoma- No recurrence; no immunosuppression Hypertension-hold valsartan, blood pressure stable at 138/76 Hypothyroidism-hold levothyroxine, last TSH collected February 2024 at 3.079 Hyperlipidemia- hold rosuvastatin Hold gabapentin and additional vitamins VTE: SCDs Code: DNR/DNI Dispo: Pending clinical improvement Admission and Anticipated Discharge Date Admission Date: August 08, 2024 Supervising Physician Co-Signing Physician Notes PA Supervision Note: I personally saw and examined the patient. I verified all blanco points and agree with DEANNE Spencer with the following exceptions and/or additions: S-Pt feeling well after EGD, no pain, is eating. Tolerating IV iron infusion Reviewed results of EGD with her. O- Vitals reviewed Gen: [AAOx3, NAD] HEENT: [anicteric sclerae, EOMI] CV: [RRR no mgr nl S1S2] Pulm: [CTAB no wcr] Abd: [+BS soft NT ND no masses or hernias] CBC, BMP reviewed A/P-74 yo female with a h/o GAVE and systemic sclerosis, here with melena and acute on chronic blood loss anemia EGD with diffuse congestion, erythema and vascular pattern in the entire antrum. No active bleeding, no contact bleeding was seen. Differential diagnosis: Vascular ectasia versus gastropathy versus malignancy. Biopsies were obtained and should be followed Above findings not likely to be amenable to any endoscopic therapy Can resume all home po medications now Plan to discharge to home tomorrow if hgb stable Subjective Patient seen laying in her bed at the time of visit. She states that the fatigue she was experiencing at the time of admission has improved since receiving blood. Patient has not had a bowel movement since admission. Denies headache, chest pain or pressure, palpitations, shortness of breath, N/V/D/C, abdominal pain, heartburn, weakness, or dizziness. Patient spoke with GI, planning to have EGD completed today. Telemetry: sinus rhythm/sinus tachycardia, rate ranged from 109-180 overnight Review of Systems Constitutional: + fatigue (Improving) Respiratory: no dyspnea Cardiovascular: no chest pain, no palpitations, no lightheadedness, no syncope and no edema Gastrointestinal: no abdominal pain, no heartburn, no nausea, no vomiting, no constipation and no diarrhea/loose stools Physical Exam Constitutional: WD/WN, vitals as above Respiratory: normal respiratory effort, lungs clear to auscultation Cardiovascular: RRR, no murmur, no edema Gastrointestinal (Abdomen): normal bowel sounds, soft, nontender, no hepatosplenomegaly Skin: + pallor (Improving); no jaundice Results & Data Results & Data Vital Signs (Past 12 Hours) Vital Signs Temp Pulse Resp BP Pulse Ox O2 Del Method 08/09/24 07:40 36.8 C 96 H 20 139/79 96 Room Air 08/09/24 03:54 36.8 C 80 17 110/69 96 Room Air Laboratory Results Hemoglobin from admission to current as follows: 7.0->7.3-> 7.6->7.6 MCH 24.9 MCHC 29.9 Platelets 470 MP 308V 9.1 Iron 16, TIBC 308, transferrin % saturation 5, ferritin 36 Vitamin B12 675, folate 22.3 Creatinine 0.72, BUN 8 Bilirubin 0.3, LFTs WNL Albumin 3.3, globulin 4.2 PG Care Time/CCT Total # of Minutes Spent Total Time Spent with Patient: Total time spent is greater than 50% in coordination of care (as documented) at patient's floor/unit and/or counseling patient: Coding Level of Care Code None Diagnoses GI bleed K92.2 Systemic sclerosis M34.9 Anemia D64.9
[2024-08-09 12:32] LABS: Hematocrit (blood only) 27.4 % (37.0-47.0); Hemoglobin 8.2 g/dl (12.0-16.0)
--- NOTE | 2024-08-09 15:04 | GI REPORT ---
[facility] Patient: KEVIN HUNTER : 1950 Sex at : Female Age: 74 Years Procedure: Upper GI endoscopy Date: 08/09/2024 Attending Physician: Zaki Camara MD Referring MD: Jordan Velasquez DO; Karen Tucker Md Indications: - Recent gastrointestinal bleeding Medications: - Monitored Anesthesia Care Complications: - No immediate complications. Estimated Blood Loss: - Estimated blood loss: None. Procedure: - The egd scope was introduced through the mouth and advanced to the third part of the duodenum. - The upper GI endoscopy was accomplished without difficulty. - The patient tolerated the procedure well. Findings: - The examined esophagus was normal. - The Z-line was regular and was found 36 cm from the incisors. - Diffuse severe mucosal changes characterized by congestion and erythema were found in the gastric antrum and in the cardia. Biopsies were taken with a cold forceps for histology. - The examined duodenum was normal. Impression: - Normal esophagus. - Z-line regular, 36 cm from the incisors. - Congested and erythematous mucosa in the gastric antrum and cardia. Biopsied. - Normal examined duodenum. Recommendation: - Await pathology results. - Observe patient's clinical course. Procedure Code(s): - 13719, Esophagogastroduodenoscopy, flexible, transoral; with biopsy, single or multiple Diagnosis Code(s): - K92.2, Gastrointestinal hemorrhage, unspecified - K31.89, Other diseases of stomach and duodenum CPT(R) - 2023 copyright [employer]. All Rights Reserved. The CPT codes, CCI edits and ICD codes generated are intended as suggestions and were generated based on input data. These codes are preliminary and upon pre coder review may be revised to meet current compliance and payer requirements. The provider is responsible for the final determination of appropriate codes, and modifiers. Zaki Camara M.D. , This document has been electronically signed. Note Initiated:08/09/2024 Note Completed:08/09/2024 3:03 PM \\[id number]
--- NOTE | 2024-08-09 15:05 | Communication Note ---
Date of Service: August 09, 2024 Upper endoscopy showed diffuse congestion, erythema and vascular pattern in the entire antrum. No active bleeding, no contact bleeding was seen. Differential diagnosis: Vascular ectasia versus gastropathy versus malignancy. Biopsies were obtained. Above findings not likely to be amenable to any endoscopic therapy
[2024-08-09] MEDS: LIDOCAINE 2% 2 ML VIAL/AMP(20MG/ML) INFIL ONE (16:23)
[2024-08-09] MEDS: PROPOFOL IV EMULSION 10 MG/ML 20 ML VIAL IV ONE (16:23)
[2024-08-09] MEDS: IRON SUCROSE 300 MG in SODIUM CHLORIDE 0.9% 250 ML IV ONE (16:24)
--- NOTE | 2024-08-09 16:39 | Anesthesiology Progress Note ---
Date of Service August 09, 2024 Anesthesia Post Procedure Vital Signs Vital Signs: Temp Pulse Pulse Pulse Resp BP BP 08/09/24 16:04 36.7 C 101 H 18 151/89 H 08/09/24 15:25 91 H 16 152/89 H 08/09/24 15:13 94 H 16 148/83 H 08/09/24 14:58 93 H 16 121/72 08/09/24 12:53 36.7 C 96 H 104 H 16 159/88 H 08/09/24 11:48 89 08/09/24 11:17 36.7 C 91 H 16 138/76 08/09/24 07:40 36.8 C 96 H 20 139/79 08/09/24 03:54 36.8 C 80 17 110/69 08/08/24 22:19 99 H 08/08/24 22:05 37.2 C 110 H 20 121/68 08/08/24 21:35 36.8 C 96 H 20 136/76 08/08/24 21:00 08/08/24 20:59 36.8 C 102 H 18 152/80 H 08/08/24 20:53 107 H 08/08/24 20:35 37.0 C 101 H 25 H 121/69 08/08/24 20:34 37.0 C 101 H 25 H 121/69 08/08/24 20:05 37.0 C 102 H 20 118/71 08/08/24 19:50 37.6 C H 98 H 24 129/73 08/08/24 19:35 37.1 C 101 H 16 138/77 08/08/24 17:00 104 H 20 136/75 Pulse Ox O2 Del Method 08/09/24 16:04 93 Room Air 08/09/24 15:25 99 Room Air 08/09/24 15:13 97 Room Air 08/09/24 14:58 97 Room Air 08/09/24 12:53 96 Room Air 08/09/24 11:48 08/09/24 11:17 95 Room Air 08/09/24 07:40 96 Room Air 08/09/24 03:54 96 Room Air 08/08/24 22:19 08/08/24 22:05 97 08/08/24 21:35 97 08/08/24 21:00 Room Air 08/08/24 20:59 96 Room Air 08/08/24 20:53 08/08/24 20:35 95 08/08/24 20:34 95 08/08/24 20:05 98 08/08/24 19:50 96 08/08/24 19:35 97 08/08/24 17:00 96 Room Air Transfer of Care Handoff Completed per policy Notes Mental Status: alert / awake / arousable Patient Amnestic to Procedure: Yes Nausea / Vomiting: adequately controlled Pain: adequately controlled Airway Patency, RR, SpO2: stable & adequate BP & HR: stable & adequate Hydration State: stable & adequate Anesthetic Complications: no major complications apparent
--- NOTE | 2024-08-09 17:33 | Billing Data ---
Date of Service August 09, 2024 Coding Level of Care Code 70322 SUB INP/OBS CARE
[2024-08-09] MEDS: VALSARTAN 80 MG TAB PO STA (18:14)
[2024-08-09 20:35] VITALS: TEMP 97.7
[2024-08-09] MEDS: PANTOprazole 40 MG TAB PO SCH (20:45)
[2024-08-09] MEDS: MELATONIN 3 MG TAB PO PRN (22:21)
[2024-08-10] MEDS: BACLOFEN 10 MG TAB PO SCH ×2 (03:41→07:08)
[2024-08-10] MEDS: GABAPENTIN 800 MG TAB PO SCH ×2 (03:41→07:08)
[2024-08-10 03:52] VITALS: O2SAT 93
[2024-08-10] MEDS: LEVOTHYROXINE SODIUM 25 MCG TABLET PO SCH (05:48)
[2024-08-10 06:20] LABS: Hematocrit (blood only) 31.5 % (37.0-47.0); Hemoglobin 9.6 g/dl (12.0-16.0); Mean Corpuscular Hemoglobin 25.4 pg (25.0-34.0); Mean Corpuscular Hgb Conc 30.5 g/dL (32.0-36.0); Mean Corpuscular Volume 83.3 fL (80.0-100.0); Mean Platelet Volume 8.8 fL (9.4-12.4); Platelet Count 570 K/uL (130-400); RDW Coefficient of Variation 16.2 % (11.5-14.5); RDW Standard Deviation 48.4 fL (36.4-46.3); Red Blood Count 3.78 M/uL (4.20-5.40)
[2024-08-10 06:38] LABS: BUN Creatinine Ratio 10.6 (10-20); Calcium 8.9 mg/dl (8.6-10.3); Creatinine Clr Calc Pharmacy 73.4 ml/min; Est GFR (African American) 101.6 ml/min; Est GFR (Non-African American) 87.6 ml/min; Potassium 3.3 mmol/L (3.5-5.1)
[2024-08-10] MEDS: CHOLECALCIFEROL 25 MCG (1000 UNITS) TAB PO SCH (07:09)
[2024-08-10] MEDS: VALSARTAN 80 MG TAB PO SCH (07:09)
[2024-08-10] MEDS: ROSUVASTATIN CALCIUM 10 MG TAB PO SCH (07:10)
[2024-08-10] MEDS: CALCIUM CARBONATE 1250MG TAB PO SCH (07:10)
[2024-08-10 08:07] VITALS: BP 156/78; RESP 20
[2024-08-10] MEDS: POTASSIUM CHLORIDE CRTAB 20 MEQ TABCR PO STA (09:56)
[2024-08-10] MEDS: IRON SUCROSE 300 MG in SODIUM CHLORIDE 0.9% 250 ML IV SCH (11:03)
--- NOTE | 2024-08-10 11:07 | Discharge Summary ---
Date of Service August 10, 2024 Admission HPI Per Admitting Provider Pt is a 74 y/o F w PMHx anemia, CREST syndrome, systemic sclerosis, GERD, pulmonary fibrosis, ILD, GAVE, B-cell lymphoma, who presents to ED for low hemoglobin. States she was referred by her PCP for low blood counts and told to come to ED. Most recent colonoscopy 11/05 revealing internal hemorrhoids and diverticula in sigmoid colon; EGD 11/05, revealed GAVE; had followed with [facility]. ED course: WBC 11.3, RBC 3.05, Hgb 7.0-> 7.3 (baseline around 10), Hct 25.6, Na 135, BUN 11, albumin 3.3, globulin 0.8. EKG reveals sinus tachycardia 105, per my review. Normotensive in ED. Pt presents with abnormal labs per PCP. States that on the day of admission, she went to have her lab work done at an outpatient facility and around 1300 that day, was called regarding a low Hgb. Reports that for 2 weeks she has had worsening and ongoing fatigue, and has been experiencing at least 1 melanotic stool per week. Pt has had this happen once before "many" years ago, and states that her Hgb was around 5, requiring admission and management. Denies recent medication changes or NSAID use. Denies chest pain or pressure, SOB, or syncope. No headache, vision changes, recent URI, palpitations, cough, dyspnea, abdominal pain, N/V/D/C, numbness, tingling, or abnormal bruising. , Mitesh, is in the room at the time. Reports a suspected decrease in her overall food intake; no additional concerns to add. Discharge Data Consultations 08/08/24 16:31 ED Decision to Admit Stat 08/08/24 17:44 Consult Gastroenterology Routine Procedures Performed Operation Date: 08/09/24 16:45 Actual Procedures p EGD Biopsy Cytology - Zaki Camara MD 08/10/24 05:52 08/10/24 05:52 Discharge Exam: GENERAL: 74 yo Well-developed, well-nourished WF. NAD. LUNGS: Clear to auscultation bilaterally. No accessory muscle use. No W/R/R. CARDIOVASCULAR: Regular rate and rhythm. No M/G/R. No JVD. ABDOMEN: Soft, non-tender and non-distended. No palpable masses. Bowel sounds normoactive x 4 quad. EXTREMITIES: No edema. Non-tender. Peripheral pulses +2/4. SKIN: Warm, dry, intact. No rashes or lesions. Discharge Diagnosis: Acute blood loss anemia secondary to GI source Hospital Course (1) GI bleed: H/o of GAVE (10/2023) per EGD; Not currently following GI. Melenic stools on and off x 2 weeks, as well as associated fatigue. Hgb baseline around 10, at 7.0-> 7.3 in ED. BUN 11 repeat on day 1 of admission, 8. H/o diverticula, no history of diverticulitis. - Hgb 7.3 s/p transfusion 1 unit pRBCs - H&H following transfusion 7.6 - GI consulted; EGD performed, noted results below - PPI bolus given in ED, drip continued --> transitioned to oral Protonix 40mg BID - Iron 16, TIBC 308, transferrin 5, ferritin 36; vitamin B12 679, folate 22.3 - Start Venofer 300 mg IV x 1; additional inpatient doses will be ordered depending on length of stay and clinical condition. Appreciate GI consult EGD with diffuse congestion, erythema and vascular pattern in the entire antrum. No active bleeding, no contact bleeding was seen. Differential diagnosis: Vascular ectasia versus gastropathy versus malignancy. Biopsies were obtained and should be followed Above findings not likely to be amenable to any endoscopic therapy F/u pathology after discharge - GI f/u scheduled by CM (2) Systemic sclerosis: H/o systemic sclerosis, CREST syndrome - Home CellCept 1 g twice daily; No transplant. - May continue topical medications for flare of symptoms. (3) Anemia: Acute blood loss anemia due to GI loss - As above - Resume oral iron supplement - Follow up CBC on Monday 08/13 Plan B-cell Lymphoma- No recurrence; no immunosuppression Hypertension-hold valsartan, blood pressure stable at 138/76 Hypothyroidism-hold levothyroxine, last TSH collected February 2024 at 3.079 Hyperlipidemia- hold rosuvastatin Hold gabapentin and additional vitamins Patient is medically and hemodynamically stable for discharge home today. Follow up with GI as scheduled. CBC on Tuesday. Follow up with PCP within 1 week. Plan d/w Dr. Chavez. Discharge Instructions Discharge time >30minutes Coding Level of Care Code 75427 INP/OBS DISCH >30 MIN Diagnoses GI bleed K92.2 Systemic sclerosis M34.9 Anemia D64.9
--- NOTE | 2024-08-10 11:34 | Communication Note ---
Date of Service: August 10, 2024 Case management to arrange follow-up appointment for GI purposes on discharge. Patient is seen by [facility] and was cared for in coverage for their service during this admission. Please schedule with [facility] accordingly.
[2024-08-10 11:45] VITALS: PULSE 96
== END 2024-08-10 13:06 | disposition home or self-care (01) | DRG 378 ==
LOC: ED 13:44 → 2N 18:16 → SUATTDRO 18:16 → 2N 20:43

== ENCOUNTER 2024-12-10 15:49 | Inpatient (IN) ==
[2024-12-10 16:16] LABS: Appearance Urine Clear (Clear); Bacteria Urine Automated None Seen (None Seen); Bilirubin Urine Negative (Negative); Blood Urine Negative (Negative); Cast Urine Automated 0-2 /lpf (0-2); Color Urine Yellow; Epithelial Cell Urine Auto 0-2 /hpf (0-2); Glucose Urine UA Negative (Negative); Ketones Urine Trace (Negative); Leukocyte Esterase Urine Trace (Negative); Nitrite Urine Negative (Negative); Protein Urine 1+ (Negative); Specific Gravity Urine 1.019 (1.000-1.030); Urobilinogen Urine Negative (Negative); WBC Urine Automated 0-5 /hpf (0-5); pH Urine 6.5 (4.5-7.5)
--- NOTE | 2024-12-10 16:32 | Emergency Department Note ---
Impression & Plan Lymphoma, Anemia, Fever, Acute hyponatremia ED Provider Note Provider: Damon May MD CHIEF COMPLAINT: Abnormal labs HISTORY OF PRESENT ILLNESS: Patient is a 74-year-old female history of crest syndrome, ILD, hypothyroidism, GERD/GAVE, lymphoma in the past and currently recurrent presenting here today referred by Dr. Plummer from oncology due to abnormal blood work. Patient evidently states her blood work today showed abnormal liver and kidney function. Was supposed to start chemo for lymphoma tomorrow and get an iron fusion today was sent here with abnormal blood work. States over the past week she has been having fairly regular fevers. Denies cough or cold symptoms. Denies significant GI upset. Has some chronic melena and has been given iron as well as blood transfusions over the last several weeks. States she is chronic stomach issues where she has a low-grade bleed regularly. Not on blood thinners or aspirin. States she is has not been eating losing weight over the last several months. Had biopsy showing a new lymphoma for which again she is undergoing workup. Denies any issues with the port placement in the left upper chest the other day. States fatigue and not eating the best but denies other real significant complaints. No headaches. PAST MEDICAL HISTORY: As noted above MEDICATIONS: Reviewed home medication list SOCIAL HISTORY: Former smoker PHYSICAL EXAM: GENERAL: alert and oriented in no acute distress on stretcher Head: normocephalic and atraumatic EYES: No injection, discharge or icterus. EOMI. NECK: Trachea midline. Good range of motion ENT: Mucous membranes pink and moist. LUNGS: Airway patent. No retractions. Breath sounds clear with good air entry bilaterally. HEART: Regular tachycardic rate and rhythm. No chest wall tenderness with left upper chest port in place without significant surrounding erythema or tenderness. ABDOMEN: Soft and non-tender, without guarding or rebound. SKIN: Acyanotic, warm, dry, without rashes EXTREMITIES: Without swelling, tenderness or deformity NEUROLOGICAL: No focal deficits. No aphasia. No facial droop or slurred speech. Ambulatory. EK bpm sinus tachycardia. No PVC or PAC. No acute ST segment elevation or depression with a QTc of 440. CONTINUOUS CARDIAC MONITORING: was ordered and showed a heart rate of 100s-130s bpm in sinus tachycardia Patient's laboratory studies and imaging reviewed. Differential includes Infection, dehydration, metabolic abnormality, hypo/hyperglycemia, electrolyte disturbance, anemia, hypoxia, cardiac sources, neurologic, as well as other pathologies. IMPRESSION/MEDICAL DECISION MAKING: Did review epic labs from today in the [facility] as well as oncology note from November 29. New port site does not appear infected. She does not have any real focal symptoms or cough or cold symptoms. Did send repeat blood work here. Procalcitonin completed and somewhat elevated. Does have a mild leukocytosis of 12.4. Hemoglobin 10.7 stable from earlier today. Hyponatremia worse at 126. No severe renal dysfunction. Mildly low magnesium of 1.6. Normal bilirubin and slight AST and ALT elevation of 195 and 95. Troponin 16 not significantly elevated. Urinalysis negative for signs of infection. Chest x-ray without evidence of pneumonia. Benign abdomen. Does not appear meningitic. Blood cultures were sent as well as a Lyme screen in discussion with the patient. Will look for an occult infection. Outpatient blood work from November 29 did show AST of 76 and ALT of 53. Hemoglobin at that time of 5.8 and 20 with a white blood cell count of 15. Patient is appreciated on CellCept for crest disease. Patient given a small amount of IV fluid here given her tachycardia and this may incidentally help a bit with her hyponatremia. Given her oncological process, in the process status, borderline temperatures, elevated pulse with procalcitonin will cover empirically with a dose of ceftriaxone while cultures are pending. Will give a small dose of Tylenol given the borderline temperature. Did recommend to her that we monitor her here in the hospital with both the fever component and hyponatremia. She was agreeable with this plan. Hospitalist team contacted. DIAGNOSIS: Lymphoma, hyponatremia, fevers DISPOSITION: Hospitalist will evaluate Patient was agreeable with this plan. Past Med/Surg History Problem List (Updated 12/10/24 @ 22:01 by Damon May M.D.) Acute hyponatremia (Acute) Fever (Acute) Anemia (Acute) Lymphoma (Acute) Elevated troponin Lymphoma GI bleed Transaminitis Fever with leukocytosis and leukocyte count less than 20,000 Hypomagnesemia Hyponatremia Right-sided carotid artery occlusion without cerebral infarction 80% right common carotid artery occlusion per CTA 08/2024 Fever Systemic sclerosis Rotator cuff tear Atherosclerosis of right common carotid artery Anemia (Acute) Tendinitis of right rotator cuff (Acute) Right knee pain (Acute) Polyneuropathy (Acute) Other specified disorders of bone density and structure, other site (Acute) Osteopenia (Acute) Iron deficiency anemia (Acute) Impaired fasting glucose (Acute) Hypothyroidism (Acute) Hyperglobulinemia (Acute) GERD without esophagitis (Acute) Dyslipidemia (Acute) CREST (calcinosis, Raynaud's phenomenon, esophageal dysfunction, sclerodactyly, telangiectasia) (Acute) Leg cramping Routine gynecological examination Biceps tendonitis on right Recurrent cough Personal history of breast cancer right Pulmonary fibrosis Vomiting (Acute) Acute dehydration (Acute) ILD (interstitial lung disease) Multiple pulmonary nodules LAD (lymphadenopathy), mediastinal Ex-smoker Chronic cough Upper airway cough syndrome Right shoulder pain Glenohumeral arthritis Systemic sclerosis with limited cutaneous involvement 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 Medical History SBO (small bowel obstruction) Surgical History History of reconstruction of right breast History of colonoscopy History of subtotal mastectomy of right breast Family History Father Myocardial infarction Sister Breast cancer Ovarian cancer Brother Colon cancer Diabetes Prostate cancer Colorectal cancer Mother Coronary heart disease Diabetes Social History Smoking Status: Current every day smoker Tobacco Type: Cigarettes Age Started Using Tobacco: 29; Age Quit Using Tobacco: 39; packs per day: 0.25; Second Hand Exposure: No; Do You Dip or Chew Tobacco: No; Hx Alcohol Use: No Hx Substance Use: No Preferred Language: [place]ian Communication Ability: Effective Visual Impairment: No Limitations Hearing Ability: Normal Manager Technical Support Required: No Beliefs That Will Affect Care: None marital status: Current Living Situation: Spouse Current Living Situation Comment: lives with current occupational status: retired Feels Safe at Home: Yes Childhood Exposure to Second-Hand Smoke: Yes Diet: regular caffeine: No Dental Care, Regularly: Yes Physical Activity Frequency: Daily Seatbelt Use: always Sunscreen Use: Yes Assistive Devices: None Allergies Allergies Allergy/AdvReac Type Severity Reaction Status Date / Time nickel AdvReac Severe RASH- Verified 12/06/24 10:48 HANDS AND OTHER AREAS BREAK OUT Home Meds Home Medications Medication Instructions Recorded Confirmed calcium carbonate 600 mg PO QAM 01/06/20 12/10/24 cyanocobalamin (vitamin B-12) 1,000 mcg PO .tuesday12/22/22 12/10/24 1,000 mcg tablet ascorbic acid (vitamin C) 1,000 mg 1 g PO QAM 08/08/24 12/10/24 tablet (Vitamin C) cholecalciferol (vitamin D3) 25 25 mcg PO QAM 08/08/24 12/10/24 mcg (1,000 unit) tablet (Vitamin D3) gabapentin 800 mg tablet 800 mg PO UD 08/08/24 12/10/24 levothyroxine 25 mcg tablet 25 mcg PO DAILYBB 08/08/24 12/10/24 mycophenolate mofetil 500 mg 1,000 mg PO .ON HOLD 08/08/24 12/10/24 tablet (CellCept) omega-3 fatty acids 500 mg capsule 500 mg PO QAM 08/08/24 12/10/24 rosuvastatin 10 mg tablet 10 mg PO HS 08/08/24 12/10/24 valsartan 80 mg tablet 80 mg PO QAM 08/08/24 12/10/24 allopurinol 300 mg tablet 300 mg PO DAILY 10/31/24 12/10/24 Previous Rx's Medication Instructions Recorded albuterol sulfate 90 mcg/actuation 2 puff inhalation Q6H PRN 12/30/22 aerosol inhaler Shortness Of Breath Or Wheezing #18 grams desoximetasone 0.25 % topical 1 applic topical DAILY #60 grams 09/19/23 ointment baclofen 10 mg tablet See Rx Instructions PO .COMPLEX 07/20/24 #270 tabs Oxygen Home #1 ea 09/18/24 pantoprazole 40 mg tablet,delayed 40 mg PO BID #180 tabs 11/19/24 release duloxetine 30 mg capsule,delayed 30 mg PO DAILY #90 caps 11/28/24 release Results & Data (ED) Vital Signs Vital Signs - 24 hr 12/10/24 15:53 12/10/24 16:21 12/10/24 16:21 Temperature 37.8 C H Temperature Source Oral Pulse Rate 82 Pulse Rate [Apical] 134 H Respiratory Rate 18 22 Respiratory Effort / Characteristics Respiratory Depth Blood Pressure 138/81 Blood Pressure [Left Arm] 121/80 Blood Pressure Mean 100 Blood Pressure Mean [Left Arm] 93 Pulse Oximetry 99 94 94 Oxygen Delivery Method Room Air Room Air Room Air Sepsis Recent Fever Within 48 Hours Yes Sepsis New/Unexplained Change in Mental Status No Sepsis Action Taken by Nursing No Action Required 12/10/24 16:46 12/10/24 18:00 12/10/24 19:00 Temperature 37.9 C H 36.7 C Temperature Source Oral Oral Pulse Rate 129 H Pulse Rate [Apical] 128 H Respiratory Rate 24 Respiratory Effort / Characteristics Non-Labored Spontaneous Respiratory Depth Normal Blood Pressure Blood Pressure [Left Arm] 123/68 Blood Pressure Mean Blood Pressure Mean [Left Arm] 86 Pulse Oximetry 99 Oxygen Delivery Method Room Air Sepsis Recent Fever Within 48 Hours Sepsis New/Unexplained Change in Mental Status Sepsis Action Taken by Nursing 12/10/24 20:11 12/10/24 20:38 Temperature Temperature Source Pulse Rate 106 H Pulse Rate [Apical] 102 H Respiratory Rate 23 Respiratory Effort / Characteristics Non-Labored Spontaneous Respiratory Depth Normal Blood Pressure Blood Pressure [Left Arm] 121/69 Blood Pressure Mean Blood Pressure Mean [Left Arm] 86 Pulse Oximetry 99 Oxygen Delivery Method Room Air Sepsis Recent Fever Within 48 Hours Sepsis New/Unexplained Change in Mental Status Sepsis Action Taken by Nursing Laboratory Data 12/10/24 20:32 12/10/24 18:28 Lab Results 12/10/24 12/10/24 12/10/24 Range/Units 15:55 16:15 16:16 WBC 12.43 H (4.8-10.8) K/ul RBC 2.83 L (4.20-5.40) M/uL Hgb 7.7 L (12.0-16.0) g/dl Hct 23.9 L (37.0-47.0) % MCV 84.5 (80.0-100.0) fL MCH 27.2 (25.0-34.0) pg MCHC 32.2 (32.0-36.0) g/dL RDW Std Deviation 50.9 H (36.4-46.3) fL RDW Coeff of Colette 16.5 H (11.5-14.5) % Plt Count 428 H (130-400) K/uL MPV 9.4 (9.4-12.4) fL Immature Gran % (Auto) 1.3 % Neut % (Auto) 72.7 % Lymph % (Auto) 8.1 % [place] % (Auto) 17.5 % Eos % (Auto) 0.1 % Baso % (Auto) 0.3 % Neut # (Auto) 9.03 H (1.40-6.50) K/uL Lymph # (Auto) 1.01 L (1.20-3.40) K/uL [place] # (Auto) 2.18 H (0.11-0.59) K/uL Eos # (Auto) 0.01 (0.00-0.50) K/uL Baso # (Auto) 0.04 (0.00-0.20) K/uL Immature Gran # (Auto) 0.16 (0.01-0.20) K/uL Polychromasia 1+ PT 13.9 H (9.0-12.0) Seconds INR 1.3 H (0.9-1.1) APTT 33 H (21-31) Seconds PTT Ratio 1.2 Sodium 126 L (136-145) mmol/L Potassium 4.1 (3.5-5.1) mmol/L Chloride 93 L (98-107) mmol/L Carbon Dioxide 25 (21-32) mmol/L Anion Gap 8 (3-11) BUN 10 (6-23) mg/dl Creatinine 0.61 (0.6-1.2) mg/dl Est Cr Clr Drug Dosing 73.9 ml/min eGFR 94.34 BUN/Creatinine Ratio 16.4 (10-20) Glucose 90 (70-99(Fasting)) mg/dl Osmolality 257 L (280-300) mOsm/kg Lactate 0.9 (0.4-2.0) mmol/L Calcium 8.8 (8.6-10.3) mg/dl Phosphorus 3.2 (2.5-4.9) mg/dl Magnesium 1.6 L (1.7-2.4) mg/dl Total Bilirubin 0.7 (0.2-1.0) mg/dl AST 195 H (13-39) U/L ALT 95 H (7-52) U/L Alkaline Phosphatase 79 (34-104) U/L Troponin I High Sens 16.1 H (0-14) pg/ml Total Protein 7.0 (6.0-8.3) gm/dl Albumin 2.8 L (3.4-5.0) gm/dl Globulin 4.2 H (2.5-4.0) gm/dl Albumin/Globulin Ratio 0.7 L (0.9-2) Lipase 26 (11-82) U/L Procalcitonin 0.62 H (0-0.5) ng/ml Urine Color Yellow Urine Appearance Clear (Clear) Urine pH 6.5 (4.5-7.5) Ur Specific [place] 1.019 (1.000-1.030) Urine Protein 1+ H (Negative) Urine Glucose (UA) Negative (Negative) Urine Ketones Trace H (Negative) Urine Blood Negative (Negative) Urine Nitrite Negative (Negative) Urine Bilirubin Negative (Negative) Urine Urobilinogen Negative (Negative) Ur Leukocyte Esterase Trace H (Negative) Urine WBC (Auto) 0-5 (0-5) /hpf Urine RBC (Auto) 6-10 H (0-2) /hpf U Hyaline Cast (Auto) 0-2 (0-2) /lpf U Epithel Cells (Auto) 0-2 (0-2) /hpf Urine Bacteria (Auto) None Seen (None Seen) Urine Osmolality (500-800) mOsm/kg Ur Random Sodium mmol/L Adenovirus (PCR) Not Detected (NotDetected) B. pertussis DNA (PCR) Not Detected (NotDetected) B.parapertussis DNA PCR Not Detected (NotDetected) Lyme Disease Screen Negative (Negative) C. pneumoniae DNA (PCR) Not Detected (NotDetected) Coronavirus OC43 (PCR) Not Detected (NotDetected) Coronavirus HKU1 (PCR) Not Detected (NotDetected) Coronavirus 229E (PCR) Not Detected (NotDetected) SARS-CoV-2 (PCR) Not Detected (NotDetected) Coronavirus NL63 (PCR) Not Detected (NotDetected) Human Metapneumovir PCR Not Detected (NotDetected) Influenza Type A (PCR) Not Detected (NotDetected) Influenza Type B (PCR) Not Detected (NotDetected) M. pneumoniae (PCR) Not Detected (NotDetected) Parainfluenza 1 (PCR) Not Detected (NotDetected) Parainfluenza 2 (PCR) Not Detected (NotDetected) Parainfluenza 3 (PCR) Not Detected (NotDetected) Parainfluenza 4 (PCR) Not Detected (NotDetected) RSV (PCR) Not Detected (NotDetected) Entero/Rhino (PCR) Not Detected (NotDetected) Blood Type Antibody Screen 12/10/24 12/10/24 12/10/24 Range/Units 17:59 18:28 20:32 WBC (4.8-10.8) K/ul RBC (4.20-5.40) M/uL Hgb 8.0 L (12.0-16.0) g/dl Hct 24.7 L (37.0-47.0) % MCV (80.0-100.0) fL MCH (25.0-34.0) pg MCHC (32.0-36.0) g/dL RDW Std Deviation (36.4-46.3) fL RDW Coeff of Colette (11.5-14.5) % Plt Count (130-400) K/uL MPV (9.4-12.4) fL Immature Gran % (Auto) % Neut % (Auto) % Lymph % (Auto) % [place] % (Auto) % Eos % (Auto) % Baso % (Auto) % Neut # (Auto) (1.40-6.50) K/uL Lymph # (Auto) (1.20-3.40) K/uL [place] # (Auto) (0.11-0.59) K/uL Eos # (Auto) (0.00-0.50) K/uL Baso # (Auto) (0.00-0.20) K/uL Immature Gran # (Auto) (0.01-0.20) K/uL Polychromasia PT (9.0-12.0) Seconds INR (0.9-1.1) APTT (21-31) Seconds PTT Ratio Sodium 126 L (136-145) mmol/L Potassium (3.5-5.1) mmol/L Chloride (98-107) mmol/L Carbon Dioxide (21-32) mmol/L Anion Gap (3-11) BUN (6-23) mg/dl Creatinine (0.6-1.2) mg/dl Est Cr Clr Drug Dosing ml/min eGFR BUN/Creatinine Ratio (10-20) Glucose (70-99(Fasting)) mg/dl Osmolality (280-300) mOsm/kg Lactate (0.4-2.0) mmol/L Calcium (8.6-10.3) mg/dl Phosphorus (2.5-4.9) mg/dl Magnesium (1.7-2.4) mg/dl Total Bilirubin (0.2-1.0) mg/dl AST (13-39) U/L ALT (7-52) U/L Alkaline Phosphatase (34-104) U/L Troponin I High Sens 15.2 H (0-14) pg/ml Total Protein (6.0-8.3) gm/dl Albumin (3.4-5.0) gm/dl Globulin (2.5-4.0) gm/dl Albumin/Globulin Ratio (0.9-2) Lipase (11-82) U/L Procalcitonin (0-0.5) ng/ml Urine Color Urine Appearance (Clear) Urine pH (4.5-7.5) Ur Specific [place] (1.000-1.030) Urine Protein (Negative) Urine Glucose (UA) (Negative) Urine Ketones (Negative) Urine Blood (Negative) Urine Nitrite (Negative) Urine Bilirubin (Negative) Urine Urobilinogen (Negative) Ur Leukocyte Esterase (Negative) Urine WBC (Auto) (0-5) /hpf Urine RBC (Auto) (0-2) /hpf U Hyaline Cast (Auto) (0-2) /lpf U Epithel Cells (Auto) (0-2) /hpf Urine Bacteria (Auto) (None Seen) Urine Osmolality 261 L (500-800) mOsm/kg Ur Random Sodium 22 mmol/L Adenovirus (PCR) (NotDetected) B. pertussis DNA (PCR) (NotDetected) B.parapertussis DNA PCR (NotDetected) Lyme Disease Screen (Negative) C. pneumoniae DNA (PCR) (NotDetected) Coronavirus OC43 (PCR) (NotDetected) Coronavirus HKU1 (PCR) (NotDetected) Coronavirus 229E (PCR) (NotDetected) SARS-CoV-2 (PCR) (NotDetected) Coronavirus NL63 (PCR) (NotDetected) Human Metapneumovir PCR (NotDetected) Influenza Type A (PCR) (NotDetected) Influenza Type B (PCR) (NotDetected) M. pneumoniae (PCR) (NotDetected) Parainfluenza 1 (PCR) (NotDetected) Parainfluenza 2 (PCR) (NotDetected) Parainfluenza 3 (PCR) (NotDetected) Parainfluenza 4 (PCR) (NotDetected) RSV (PCR) (NotDetected) Entero/Rhino (PCR) (NotDetected) Blood Type O Positive Antibody Screen NEGATIVE Administered Medications Discontinued Medications Acetaminophen (Acetaminophen 325 Mg Tab) 650 mg PO NOW STA Stop: 12/10/24 17:54 Last Admin: 12/10/24 18:12 Dose: 650 mg Documented By: DINORAH Sodium Chloride (Nss) 500 mls @ 999 mls/hr IV .Q31M ONE Stop: 12/10/24 17:14 Last Infusion: 12/10/24 17:35 Dose: Infused Documented By: Admin: 12/10/24 16:50 Dose: 999 mls/hr Documented By: DINORAH Ceftriaxone Sodium (Rocephin) 2,000 mg in 50 mls @ 100 mls/hr IV NOW STA Stop: 12/10/24 18:20 Last Infusion: 12/10/24 19:00 Dose: Infused Documented By: Admin: 12/10/24 18:15 Dose: 100 mls/hr Documented By: DINORAH Magnesium Sulfate/Dextrose (Magnesium Sulfate / D5w) 1 gm in 100 mls @ 50 mls/hr IV ONE STA Stop: 12/10/24 21:49 Last Admin: 12/10/24 20:04 Dose: 50 mls/hr Documented By: DINORAH Imaging Data Radiologist's Impression: Chest X-Ray 12/10/24 15:57 INDICATION: Cough. TECHNIQUE: Frontal radiograph of the chest. COMPARISON: Radiograph from 09/18/2022. FINDINGS: Elevation of the right hemidiaphragm. Mild cardiomegaly. Elevation of the right hemidiaphragm similar to prior. Left-sided chest port catheter tip in the superior vena cava. Chronic appearing interstitial lung markings again noted. Pulmonary vasculature appear within normal limits. No infiltrate, pleural effusion or pneumothorax. No acute osseous abnormality evident. IMPRESSION: Chronic appearing interstitial lung markings. No acute cardiopulmonary process. Electronically signed by David Vazquez 12-10-2024 5:00 PM Discharge Plan Visit Data Chief Complaint: Abnormal Labs/Diagnostic Testing Stated Complaint: ABN LABS ED Provider: Damon May Discharge Problem: Lymphoma, Anemia, Fever, Acute hyponatremia Patient Disposition: Admitted As Inpatient Forms Stand Alone Forms: My [facility] Prescriptions Prescriptions: No Action desoximetasone 0.25 % ointment 1 applic topical DAILY Qty: 60 0RF Rx Instructions: Apply to areas of hands at bedtime x 2 weeks as needed for flaring. baclofen 10 mg tablet See Rx Instructions PO .COMPLEX Qty: 270 1RF Rx Instructions: 1 tab every AM, 2 tabs every HS orally for leg cramping; (DME) Oxygen Home Liters Per Minute See Rx Instructions .Route Qty: 1 0RF Rx Instructions: D/C HOME OXYGEN pantoprazole 40 mg tablet,delayed release (DR/EC) 40 mg PO BID Qty: 180 1RF duloxetine 30 mg capsule,delayed release(DR/EC) 30 mg PO DAILY Qty: 90 1RF calcium carbonate 600 mg calcium (1,500 mg) tablet 600 mg PO QAM cyanocobalamin (vitamin B-12) 1,000 mcg tablet 1,000 mcg PO .tuesday albuterol sulfate 90 mcg/actuation HFA aerosol inhaler 2 puff inhalation Q6H PRN (Reason: Shortness Of Breath Or Wheezing) Qty: 18 3RF rosuvastatin 10 mg tablet 10 mg PO HS ascorbic acid (vitamin C) [Vitamin C] 1,000 mg Tablet 1 g PO QAM gabapentin 800 mg tablet 800 mg PO UD Rx Instructions: take 1 tablet in morning and 2 tablets at night levothyroxine 25 mcg tablet 25 mcg PO DAILYBB mycophenolate mofetil [CellCept] 500 mg tablet 1,000 mg PO .ON HOLD cholecalciferol (vitamin D3) [Vitamin D3] 25 mcg (1,000 unit) Tablet 25 mcg PO QAM omega-3 fatty acids 500 mg Capsule 500 mg PO QAM valsartan 80 mg tablet 80 mg PO QAM allopurinol 300 mg Tablet 300 mg PO DAILY Referrals Referrals: Stephany Gilbert CRNP [Primary Care Provider] - Discharge Problem: Lymphoma Qualifiers: Lymphoma type: unspecified type Anemia Qualifiers: Anemia type: unspecified type Qualified Code(s): D64.9 - Anemia, unspecified Fever Qualifiers: Fever type: unspecified Qualified Code(s): R50.9 - Fever, unspecified
[2024-12-10 16:39] LABS: Basophils # (auto) 0.04 K/uL (0.00-0.20); Basophils % (auto) 0.3 %; Eosinophils # (auto) 0.01 K/uL (0.00-0.50); Eosinophils % (auto) 0.1 %; Hematocrit (blood only) 23.9 % (37.0-47.0); Hemoglobin 7.7 g/dl (12.0-16.0); Immature Granulocytes # (auto) 0.16 K/uL (0.01-0.20); Immature Granulocytes % (auto) 1.3 %; Lymphocytes # (auto) 1.01 K/uL (1.20-3.40); Lymphocytes % (auto) 8.1 %; Mean Corpuscular Hemoglobin 27.2 pg (25.0-34.0); Mean Corpuscular Hgb Conc 32.2 g/dL (32.0-36.0); Mean Corpuscular Volume 84.5 fL (80.0-100.0); Mean Platelet Volume 9.4 fL (9.4-12.4); Monocytes # (auto) 2.18 K/uL (0.11-0.59); Monocytes % (auto) 17.5 %; Neutrophils # (auto) 9.03 K/uL (1.40-6.50); Neutrophils % (auto) 72.7 %; Platelet Count 428 K/uL (130-400); RDW Coefficient of Variation 16.5 % (11.5-14.5); RDW Standard Deviation 50.9 fL (36.4-46.3); Red Blood Count 2.83 M/uL (4.20-5.40); White Blood Count 12.43 K/ul (4.8-10.8)
[2024-12-10] MEDS: SODIUM CHLORIDE 0.9% 500 ML IV ONE (16:50)
[2024-12-10 16:56] LABS: Albumin Globulin Ratio 0.7 (0.9-2); Albumin Level 2.8 gm/dl (3.4-5.0); BUN Creatinine Ratio 16.4 (10-20); Bilirubin,Total 0.7 mg/dl (0.2-1.0); Calcium 8.8 mg/dl (8.6-10.3); Creatinine Clr Calc Pharmacy 73.9 ml/min; Globulin 4.2 gm/dl (2.5-4.0); Magnesium 1.6 mg/dl (1.7-2.4); Phosphorus 3.2 mg/dl (2.5-4.9); Potassium 4.1 mmol/L (3.5-5.1)
[2024-12-10 16:58] LABS: Polychromasia 1+
--- NOTE | 2024-12-10 17:00 | XRay Report ---
INDICATION: Cough. TECHNIQUE: Frontal radiograph of the chest. COMPARISON: Radiograph from 09/18/2022. FINDINGS: Elevation of the right hemidiaphragm. Mild cardiomegaly. Elevation of the right hemidiaphragm similar to prior. Left-sided chest port catheter tip in the superior vena cava. Chronic appearing interstitial lung markings again noted. Pulmonary vasculature appear within normal limits. No infiltrate, pleural effusion or pneumothorax. No acute osseous abnormality evident. IMPRESSION: Chronic appearing interstitial lung markings. No acute cardiopulmonary process. Electronically signed by David Vazquez 12-10-2024 5:00 PM
[2024-12-10 17:01] LABS: Troponin I High Sensitivity 16.1 pg/ml (0-14)
[2024-12-10 17:03] LABS: INR 1.3 (0.9-1.1); Partial Thromboplastin Ratio 1.2; Partial Thromboplastin Time 33 Seconds (21-31); Prothrombin Time 13.9 Seconds (9.0-12.0)
[2024-12-10 17:19] LABS: Adenovirus PCR Not Detected (NotDetected); Bordetella parapertussis PCR Not Detected (NotDetected); Bordetella pertussis PCR Not Detected (NotDetected); Chlamydia pneumoniae PCR Not Detected (NotDetected); Coronavirus 229E PCR Not Detected (NotDetected); Coronavirus CoV-2 (COVID19)PCR Not Detected (NotDetected); Coronavirus HKU1 PCR Not Detected (NotDetected); Coronavirus NL63 PCR Not Detected (NotDetected); Coronavirus OC43PCR Not Detected (NotDetected); Human Metapneumovirus PCR Not Detected (NotDetected); Influenza A PCR Not Detected (NotDetected); Influenza B PCR Not Detected (NotDetected); Mycoplasma pneumoniae PCR Not Detected (NotDetected); Parainfluenza Virus 1 PCR Not Detected (NotDetected); Parainfluenza Virus 2 PCR Not Detected (NotDetected); Parainfluenza Virus 3 PCR Not Detected (NotDetected); Parainfluenza Virus 4 PCR Not Detected (NotDetected); Respiratory Syncytial VirusPCR Not Detected (NotDetected); Rhinovirus/Enterovirus PCR Not Detected (NotDetected)
[2024-12-10] MEDS: ACETAMINOPHEN 325 MG TAB PO STA (18:12)
[2024-12-10] MEDS: cefTRIAXone SODIUM 2,000 MG/50 ML BAG IV STA (18:15)
--- NOTE | 2024-12-10 19:22 | History & Physical Report ---
Date of Service December 10, 2024 Assessment & Plan (1) Hyponatremia: (2) Hypomagnesemia: (3) Fever with leukocytosis and leukocyte count less than 20,000: (4) Transaminitis: (5) GI bleed: (6) Lymphoma: (7) Elevated troponin: (8) CREST (calcinosis, Raynaud's phenomenon, esophageal dysfunction, sclerodactyly, telangiectasia): Plan Patient is a 74-year-old female with past medical history of crest syndrome, ILD, hypothyroidism, GERD, recently diagnosed mesenteric lymphoma supposed to start chemotherapy tomorrow 12/11. She was referred by her oncologist, Dr. Plummer due to abnormal blood work. Patient was found to have electrolyte abnormalities of hyponatremia and hypomagnesia. She also has mild leukocytosis with a low- grade fever as well as transaminitis. #hyponatremia Suspect secondary to increased fluid intake has been decreasing over past few months Euvolemic on exam Serum NA 126, serum osmole 257, urine osmole 261, urine Na 22 TSH 12/04/2024 WNL a.m. cortisol ordered received 500 mL NSS bolus in ED Will start 1G BID NaCl tablets will start gentle resuscitation of NSS after midnight with n.p.o. status due to GI bleed below trend BMP #hypomagnesemia Mg 1.6 -> 1 G IV ordered K+ stable, 4.1 Trend BMP and Mg #leukocytosis and fever WBC 12.43 with neutrophil predominance Temperature 37.9 C in ED tachycardia improving (134 ->102) CXR negative, BioFire negative, UA negative Pro-Zeeshan mildly elevated at 0.62 Started on Rocephin in ED; will discontinue abx as likely noninfectious Follow blood cultures no concern for neutropenic fever on admission given neutrophil count elevated possibly secondary to lymphoma #transaminitis AST 195, ALT 95, bilirubin WNL, alk phos WNL possibly secondary to lymphoma - will need oncology consult Has been on statin for multiple years without reaction Trend CMP #GI bleed History of GAVE Colonoscopy 10/2023 showed internal hemorrhoids and diverticulosis EGD 07/2024 on chronic gastritis Hgb 7.7 on admission (baseline 10) - has received 4 units PRBC over the past 2 weeks as per patient repeat H&H ordered on admission (8.0), type and screen ordered IV Protonix twice daily ordered Will consult GI N.p.o. after midnight #lymphoma Follows with [facility] oncologist, Dr. Plummer Was to start chemotherapy 12/11; canceled Suspect leukocytosis, fever, and transaminitis secondary to lymphoma Will hold CellCept for evening dose on admission and AM allopurinol Daytime team to reach out to [facility] oncologist regarding continuing CellCept and allopurinol day team to coordinate oncology consult - Roberto blanc [place] #elevated troponin 16.1 ->15.2 repeat on admission and in AM denies CP EKG sinus tachycardia, similar to previous, no ischemic changes likely 2/2 to demand with tachycardia monitor on tele overnight #systemic sclerosis/CREST syndrome holding cellcept as above continue topical medications Chronic stable diagnoses: HLD - continue statin ILD - continue albuterol prn neuropathy - continue gabapentin hypothyroidism - continue levothyroxine HTN - hold valsartan with possible surgical management VTE ppx: SCDs, defer chemical ppx with anemia/GI bleed Diet: NPO after midnight Dispo: med/tele Admission and Anticipated Discharge Date Admission Date: 12/10/24 History of Present Illness Chief Complaint: abnormal labs Primary Care Provider: EARL Arriola Patient is a 74-year-old female with past medical history of crest syndrome, ILD, hypothyroidism, GERD, recently diagnosed mesenteric lymphoma supposed to start chemotherapy tomorrow 12/11. She was referred by her oncologist, Dr. Plummer due to abnormal blood work. Patient was found to have electrolyte abnormalities of hyponatremia and hypomagnesia. She also has mild leukocytosis with a low- grade fever as well as transaminitis. Patient seen at bedside. She stated that she was told to come in by her oncologist but was unsure as to why. She has been relatively asymptomatic. She stated she has not had any fevers recently, takes her temperature daily. She did have a low-grade fever in the ED but does not have chills or hot flashes. Regarding her hyponatremia, patient has been drinking a lot of water; suspect secondary to crest syndrome and esophagitis. She stated she has a chronic GI bleed, chronic anemia, follows with GI. She had a colonoscopy October 2023 which showed internal hemorrhoids and diverticulosis without diverticulitis. R ecent EGD July 2024 showed diffuse congestion, erythema, and vascular pattern and entire antrum, no active bleeding seen, biopsy revealed mild chronic gastritis. She stated that she is to have repeat colonoscopy and EGD soon, has not yet set this up. Patient stated she was to have an iron transfusion today because she had an elevated temperature, but recent iron studies show elevated iron and transfer to mobile. Patient does endorse chronic melena, relatively unchanged. She also endorses a 30 pound weight loss in the past few months but states her appetite is stable. She also endorses a chronic cough for the past few months, relatively unchanged. Patient denies fever, chills, dizziness, lightheadedness, rhinorrhea, sore throat, dyspnea, chest pain, abdominal pain, nausea, vomiting, diarrhea, dysuria, hematuria, edema, numbness, tingling, muscle weakness, muscle cramps. She does not use nicotine products or drink alcohol. She lives at home with her . She denies past history of diabetes or previous VTE. She previously used oxygen at baseline but does not need it or use it any longer. She did take her a.m. medications but is due for her evening medications which include CellCept. She wishes to be DNR/DNI at this time. Handoff from the ED provider stated that they did not speak with [facility] oncology. Hospitalist team will hold CellCept for this evening, daytime team to reach out to [facility] oncologist to see if patient should continue CellCept during hospitalization, and if [facility] oncology would like to evaluate patient during hospital stay. Allergies Allergy/AdvReac Type Severity Reaction Status Date / Time nickel AdvReac Severe RASH- Verified 12/06/24 10:48 HANDS AND OTHER AREAS BREAK OUT Home Medications Medication Instructions Recorded Confirmed Type calcium carbonate 600 mg PO QAM 01/06/20 12/10/24 History cyanocobalamin (vitamin B-12) 1,000 mcg PO .tuesday12/22/22 12/10/24 History 1,000 mcg tablet albuterol sulfate 90 mcg/actuation 2 puff inhalation Q6H PRN 12/30/22 12/10/24 Rx aerosol inhaler Shortness Of Breath Or Wheezing #18 grams desoximetasone 0.25 % topical 1 applic topical DAILY #60 grams 09/19/23 12/10/24 Rx ointment baclofen 10 mg tablet See Rx Instructions PO .COMPLEX 07/20/24 12/10/24 Rx #270 tabs ascorbic acid (vitamin C) 1,000 mg 1 g PO QAM 08/08/24 12/10/24 History tablet (Vitamin C) cholecalciferol (vitamin D3) 25 25 mcg PO QAM 08/08/24 12/10/24 History mcg (1,000 unit) tablet (Vitamin D3) gabapentin 800 mg tablet 800 mg PO UD 08/08/24 12/10/24 History levothyroxine 25 mcg tablet 25 mcg PO DAILYBB 08/08/24 12/10/24 History mycophenolate mofetil 500 mg 1,000 mg PO .ON HOLD 08/08/24 12/10/24 History tablet (CellCept) omega-3 fatty acids 500 mg capsule 500 mg PO QAM 08/08/24 12/10/24 History rosuvastatin 10 mg tablet 10 mg PO HS 08/08/24 12/10/24 History valsartan 80 mg tablet 80 mg PO QAM 08/08/24 12/10/24 History Oxygen Home #1 ea 09/18/24 12/06/24 Rx allopurinol 300 mg tablet 300 mg PO DAILY 10/31/24 12/10/24 History pantoprazole 40 mg tablet,delayed 40 mg PO BID #180 tabs 11/19/24 12/10/24 Rx release duloxetine 30 mg capsule,delayed 30 mg PO DAILY #90 caps 11/28/24 12/10/24 Rx release Past Med/Surg History Problem List (Updated 12/10/24 @ 22:01 by Damon May M.D.) Acute hyponatremia (Acute) Fever (Acute) Anemia (Acute) Lymphoma (Acute) Elevated troponin Lymphoma GI bleed Transaminitis Fever with leukocytosis and leukocyte count less than 20,000 Hypomagnesemia Hyponatremia Right-sided carotid artery occlusion without cerebral infarction 80% right common carotid artery occlusion per CTA 08/2024 Fever Systemic sclerosis Rotator cuff tear Atherosclerosis of right common carotid artery Anemia (Acute) Tendinitis of right rotator cuff (Acute) Right knee pain (Acute) Polyneuropathy (Acute) Other specified disorders of bone density and structure, other site (Acute) Osteopenia (Acute) Iron deficiency anemia (Acute) Impaired fasting glucose (Acute) Hypothyroidism (Acute) Hyperglobulinemia (Acute) GERD without esophagitis (Acute) Dyslipidemia (Acute) CREST (calcinosis, Raynaud's phenomenon, esophageal dysfunction, sclerodactyly, telangiectasia) (Acute) Leg cramping Routine gynecological examination Biceps tendonitis on right Recurrent cough Personal history of breast cancer right Pulmonary fibrosis Vomiting (Acute) Acute dehydration (Acute) ILD (interstitial lung disease) Multiple pulmonary nodules LAD (lymphadenopathy), mediastinal Ex-smoker Chronic cough Upper airway cough syndrome Right shoulder pain Glenohumeral arthritis Systemic sclerosis with limited cutaneous involvement 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 Medical History SBO (small bowel obstruction) Surgical History History of reconstruction of right breast History of colonoscopy History of subtotal mastectomy of right breast Family History Father Myocardial infarction Sister Breast cancer Ovarian cancer Brother Colon cancer Diabetes Prostate cancer Colorectal cancer Mother Coronary heart disease Diabetes Social History Smoking Status: Current every day smoker Tobacco Type: Cigarettes Age Started Using Tobacco: 29; Age Quit Using Tobacco: 39; packs per day: 0.25; Second Hand Exposure: No; Do You Dip or Chew Tobacco: No; Hx Alcohol Use: No Hx Substance Use: No Preferred Language: [place] Communication Ability: Effective Visual Impairment: No Limitations Hearing Ability: Normal Brusher Machine Required: No Beliefs That Will Affect Care: None marital status: Current Living Situation: Spouse Current Living Situation Comment: lives with current occupational status: retired Feels Safe at Home: Yes Childhood Exposure to Second-Hand Smoke: Yes Diet: regular caffeine: No Dental Care, Regularly: Yes Physical Activity Frequency: Daily Seatbelt Use: always Sunscreen Use: Yes Assistive Devices: None Review of Systems Review of Systems: see HPI Physical Exam Physical Exam: The patient is awake, alert and oriented 3, well developed and well nourished, normocephalic and atraumatic, in no acute distress. Non-toxic appearing. Appears euvolemic. HEENT- EOMI, mucous membranes moist. Hearing grossly intact. Heart-normal S1 and S2. No murmurs, rubs or gallops. Lungs-clear bilaterally, no respiratory distress, no accessory muscle use. Abdomen-normal bowel sounds and soft. No ascites noted. Non-tender. Extremities- no clubbing, cyanosis, or edema. Rheumatologic-normal range of motion. Psychiatric-normal affect. Results & Data Results & Data Vital Signs (Past 12 Hours) Vital Signs Temp Pulse Pulse Resp BP BP Pulse Ox 12/10/24 19:00 36.7 C 12/10/24 18:00 37.9 C H 128 H 24 123/68 99 12/10/24 16:46 129 H 12/10/24 16:21 94 12/10/24 16:21 134 H 22 121/80 94 12/10/24 15:53 37.8 C H 82 18 138/81 99 O2 Del Method 12/10/24 19:00 12/10/24 18:00 Room Air 12/10/24 16:46 12/10/24 16:21 Room Air 12/10/24 16:21 Room Air 12/10/24 15:53 Room Air Code Status & VTE Plan Code Status dnr/dni VTE Prophylaxis Plan VTE Prophylaxis will be ordered: Yes Supervising Physician Co-Signing Physician Notes Attending addendum: I have physically seen this patient, have supervised the NANI's activities, and agree with the H&P unless as otherwise noted. Assessment and Plan: The patient is a 74-year-old female with a past medical history including CREST syndrome, GAVE syndrome, recurrent GI bleeding requiring transfusion, ILD, hypothyroidism, GERD recently diagnosed with recurrence of lymphoma, who was to begin chemotherapy tomorrow 12/11, but has since been delayed by her oncologist due to an elevated temperature temperature and abnormal laboratories. #Recurrent lymphoma/elevated temperature- Follow all cultures, urine, blood Patient did receive ceftriaxone 2 g IV empirically from the ED, along with Tylenol 650 mg p.o. and normal saline 500 mL bolus As noted above, she was to begin chemotherapy tomorrow, but this is temporarily delayed, and will be resumed at the direction of her oncologist Hyponatremia- Sodium 126, urine osmolality 261, serum osmolality 257, suggesting excessive fluid intake Placed on sodium chloride tablets 1 g p.o. twice daily Fluid restrict to 1500 cc Recheck laboratories in the a.m. Anemia/GAVE syndrome- Hemoglobin 7.7, with hematocrit 23.9 Placed on pantoprazole 40 mg twice daily Repeat laboratories in a.m. Most recent endoscopy on 08/09/2024 with normal-appearing esophagus, congested and erythematous mucosa in the gastric antrum and cardia, normal examined duodenum Consult gastroenterology # Transaminitis- AST 195, ALT 95, both increased from 12/04 Likely secondary to lymphoma Following serially Consult GI as above Hypomagnesemia- Magnesium 1.6 Replacing IV, recheck laboratories in a.m. PG Care Time/CCT Total # of Minutes Spent Total Time Spent with Patient: Total time spent is greater than 50% in coordination of care (as documented) at patient's floor/unit and/or counseling patient: Coding Level of Care Code 11284 INT INP/OBS CARE 3/75MIN Diagnoses Hyponatremia E87.1 Hypomagnesemia E83.42 Fever with leukocytosis and leukocyte count less than 20,000 D72.829 Transaminitis R74.01 GI bleed K92.2 Lymphoma C85.90 Elevated troponin R79.89 CREST (calcinosis, Raynaud's phenomenon, esophageal dysfunction, sclerodactyly, telangiectasia) M34.1
[2024-12-10] MEDS: MAGNESIUM SULFATE / D5W 1 GM/100 ML BAG IV STA (20:04)
[2024-12-10 21:35] LABS: Hematocrit (blood only) 24.7 % (37.0-47.0)
[2024-12-10] MEDS ORDERED: ONDANSETRON INJ 2 MG/ML 2 ML VIAL IV PRN (23:00)
[2024-12-10] MEDS ORDERED: ALBUTEROL HFA 8 GM INHALER INH PRN (23:00)
[2024-12-11] MEDS: SODIUM CHLORIDE 0.9% 1,000 ML IV SCH (00:05)
[2024-12-11] MEDS: PANTOprazole 40 MG/10 ML SYR IV SCH (00:53)
[2024-12-11] MEDS: ROSUVASTATIN CALCIUM 10 MG TAB PO SCH (00:56)
[2024-12-11] MEDS: FLUOCINONIDE 0.05% OINT 15 GM TUBE EXT SCH (00:58)
[2024-12-11] MEDS: SODIUM CHLORIDE 1 GM TABLET PO SCH (01:16)
[2024-12-11] MEDS: ACETAMINOPHEN 325 MG TAB PO PRN (02:26)
--- OUTSIDE RECORDS SUMMARY | 2024-12-11 03:43 | External Medical Summary ---
Author Name Unknown Address Unknown Organization K09:[facility] [place] [address] Laboratory Report Ordering Provider Test Date Status ERIN FLORES 12/10/2024 14:05:44 Final Observation Date Value Abnormality Reference (Units ) Status WBC, Total 12/10/2024 14:05:44 11.11 Above high normal 4 .00-10.80 (K/uL) Final RBC 12/10/2024 14:05:44 2.74 3.85-5.15 (M/uL) Final Hemoglobin 12/10/2024 14:05:44 7.5 Below low normal 12 .0-15.3 (g/dL) Final HCT 12/10/2024 14:05:44 24.5 Below low normal 36. 0-45.2 (%) Final MCV 12/10/2024 14:05:44 89.4 81.5-97.5 (fL) Final MCH 12/10/2024 14:05:44 27.4 27.0-34.0 (pg) Final MCHC 12/10/2024 14:05:44 30.6 32.0-36.0 (g/dL) Final RDW 12/10/2024 14:05:44 16.7 11.5-15.5 (%) Final Platelets 12/10/2024 14:05:44 428 Above high normal 14 0-400 (K/uL) Final MPV 12/10/2024 14:05:44 8.8 6.6-11.1 ( fL) Final Performing Location [facility] [place] [address]
--- OUTSIDE RECORDS SUMMARY | 2024-12-11 03:43 | External Medical Summary | Summary of Care ---
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 0 7 Active VITAMIN C 500 MG PO TABS 1 TABLET 3 times DAILY 0 8 Active MULTIVITAMINS PO TABS 1 tab by mouth daily 0 8 Active TYLENOL EXTRA STRENGTH 500 MG PO TABS 3 tabs by mouth in am prn 0 8 Active LCD 10% IN AQUAPHOR EXIndications:De rmatitis Apply to affected area once daily 60GM 3 9 Active ProAir HFA 108 (90 Base) MCG/ACT Inhalation Aerosol SolutionIndicati ons:Bronchitis, complicated Inhale by mouth 2 Puffs every 4 hours as needed for Congestion, Cough or Wheezing. 18 g 2 Active Additional Information Patient not taking.Reported on 11/19/2024 Valsartan 80 MG Oral Tablet (Diovan) Take 1 Tablet by mouth in the morning. Active Mycophenolate Mofetil 500 MG Oral Tablet (Cellcept) Take by mouth 2 times a day. Active Rosuvastatin Calcium 10 MG Oral Tablet (Crestor) Take 1 Tablet by mouth at bedtime. Active Desoximetasone 0.25 % External Ointment Apply topically to affected area at bedtime. Apply to hands Active Vitamin D-[address] 25 MCG (1000 UT) Oral Tablet (Cholecalciferol ) Take 1 Tablet by mouth in the morning. Active Vitamin B-12 1000 MCG Sublingual Tablet Sublingual Place 1 Tablet under the tongue once a week. Tuesday Active Iron 325 (65 Fe) MG Oral Tablet Take by mouth every other day. Tue-tue-Tue Active Floranex Oral Packet Take by mouth 2 times a day. Active Omeprazole 40 MG Oral Capsule Delayed Release (PriLOSEC) Take 1 Capsule by mouth in the morning. 90 Capsule 3 4 Active Levothyroxine Sodium 25 MCG Oral Tablet (Levoxyl) Take 1 Tablet by mouth daily first thing in the morning. 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 90 Tablet 4 Active Fish Oil 1000 MG Oral Capsule 1 Capsule. Active Amoxicillin 500 MG Oral Capsule (Amoxil) Take 1 Capsule by mouth in the morning and 1 Capsule before bedtime. 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 ICD-10 update of inactive term documented as of this encounter (statuses as of 12/04/2024) Social History Tobacco Use Types Packs/Day Years Used Date Smoking Tobacco: Never Smokeless Tobacco: Never Comments:quit 1986 Alcohol Use Standard Drinks/Week Comments No 0 (1 standard drink = 0.6 oz pur e alcohol) Comments No Sex and Gender Information Value Date Recorded Sex Assigned at Not on file Legal Sex Female 6:20 AM EST Gender Identity Not on file Sexual Orientation Not on file Occupation Industry Job Start Date Job End Date Not on file Not on file Not on file Not on file documented as of this encounter Miscellaneous Notes * Telephone Encounter - Logan Plummer MD - 12/04/2024 5:00 PM EST E-prescribed. * Telephone Encounter - Nadiya Granados RN - 12/04/2024 4:16 PM EST Pended zofran, compazine, allopurinol, acyclovir, EMLA to [facility]. documented in this encounter Plan of Treatment Upcoming Encounters Date Type Department Care Team (Latest Contact Info) Description 12/05/2024 1:54 PM EST Hospital Encounter OR [facility], Operating Room, [facility] - 4th Floor [address] [address] Taco Sanchez MD [address] [place] [address] 12/05/2024 1:54 PM EST - 12/05/2024 2:55 PM EST Surgery OR [facility], Operating Room, [facility] - 4th Floor [address] [place] [address] Taco Sanchez MD [address] [place] [address] INSERT TUNNELED CENTRAL VENOUS ACCESS WITH SUBQ PORT 12/11/2024 2:00 PM EST Hem/Onc Treatment Hematology/Oncology Treatment, [address], [place] [id number] 12/18/2024 2:00 PM EST Hem/Onc Treatment Hematology/Oncology Treatment, [address] [place] [id number] [place] [address] Hem Onc [address] [address] 12/25/2024 2:00 PM EST Hem/Onc Treatment Hematology/Oncology Treatment, [place] [address] [place] [address] [place], Chair 6 Hem Onc Scenery [address] [place] [address] Scheduled Procedures Name Priority Associated Diagnoses Date/Ti me INSERT TUNNELED CENTRAL VENOUS ACCESS WITH SUBQ PORT 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) 12/05/2024 1:54 PM EST COLONOSCOPY FLEXIBLE PROXIMAL DIAGNOSTIC Recall Special screening for malignant neoplasms, colon Health Maintenance Due Date Last Done Comments Lipid Panel 1951 Depression Screening 1963 Hepatitis C Screening 1969 DTap/Tdap Vaccines (1 - Tdap) 1970 Mammogram 1991 Cologuard 1996 Fecal Occult Blood Test 1996 Sigmoidoscopy 1996 DXA Scan 2001 *BISPHONATE OR OTHER ACCEPTABLE MEDICATION NEEDED FOR OSTEOPOROSIS (REFER TO SMARTSET #1146) 02/04/2023 COVID-19 Vaccine (3 - Mixed Product risk series) 10/15/2024 09/17/2024, 08/27/2023 TSH 10/25/2025 10/25/2024 Colonoscopy 11/09/2033 11/09/2023, 10/15, 03/17/2015 Colorectal Cancer Screening 11/09/2033 VITAMIN D LEVEL ONCE IN A LIFETIME-USE SMARTSET# [id number] Completed 10/25/2008 Pneumococcal Vaccine: 50+ Years Completed 06/24/2017, 11/14/2015 Zoster Vaccines Completed 08/20/2019, 06/15/2019 Influenza Vaccine (FLU shot) Completed 02/2024, 08/26/2023, 08/31/2022, Additional history exists HPV (Gardasil) Vaccine Aged Out No lo nger eligible based on patient's age to complete this topic Hepatitis B Vaccine Aged Out No longe r eligible based on patient's age to complete this topic MENINGOCOCCAL (MENACTRA/MENVEO) Aged Out No longer eligible based on patient's age to complete this topic documented as of this encounter Medical Devices Not on filedocumented as of this encounter Visit Diagnoses Diagnosis 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
--- OUTSIDE RECORDS SUMMARY | 2024-12-11 03:43 | External Medical Summary | Summary of Care ---
Author Name Unknown Organization [facility] Address [address] [facility] [place] [address] Phone [phone] Care Team Providers Care Pit Hand Name Role Phone Stephany Gilbert Primary Care Provider Reason for Visit * Reason Onset Date Comments Advice 12/05/2024 Elian Encounter Details Date Type Department Care Team (Late st Contact Info) Description 12/05/2024 Telephone [facility] [place] [place] [address] 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 ICD-10 update of inactive term documented as of this encounter (statuses as of 12/05/2024) Social History Tobacco Use Types Packs/Day Years [...] encounter Miscellaneous Notes * Telephone Encounter - Saul Ramos RN - 12/05/2024 11:19 AM EST Called patient back and advised. * Telephone Encounter - Carla Cade OSA - 12/05/2024 9:05 AM EST Pt called stating that she picked up her medication for her upcoming treatment appt is requesting acall back to discuss if she is to start rx immediately or if medication should be taken prior to treatment appt. Please reach out to pt to advise. Thank You! documented in this encounter Plan of Treatment Upcoming Encounters Date Type Department Care Team (Late st Contact Info) Description 12/10/2024 1:30 PM EST Hem/Onc Treatment Hematology/Oncology Treatment, [address], [place] [phone] Kaykay, Chair 1 Hem Onc Scenery [address] [facility] [place], [place] [address] 12/11/2024 8:15 AM EST Hem/Onc Treatment Hematology/Oncology Treatment, [address], [place] [address] Kaykay, Chair 1 Hem Onc Scenery [address] [facility] [place], [place] [address] 12/18/2024 2:00 PM EST Hem/Onc Treatment Hematology/Oncology Treatment, [address] [place] [address] Kaykay, Chair 11 Hem Onc Scenery [address] [facility] [place], [place] [address] 12/25/2024 2:00 PM EST Hem/Onc Treatment Hematology/Oncology Treatment, [address], [place] [address] Kaykay, Chair 6 Hem Onc Scenery [address] [facility] [place] [address] Scheduled Procedures Name Priority Associated Diagnoses Date/Ti [...] D LEVEL ONCE IN A LIFETIME-USE SMARTSET# 06010 Completed 10/25/2008 Pneumococcal Vaccine: 50+ Years Completed [...] Not on filedocumented as of this encounter Care Teams Pit Hand Relationship Specialty Start Date End Date Stephany Gilbert CRNP [address] [place] [address] [place] [phone] PCP - General Nurse Practitioner 02/02/23 documented as of this encounter
--- OUTSIDE RECORDS SUMMARY | 2024-12-11 03:43 | External Medical Summary | Summary of Care ---
Author Name Unknown Organization [facility] Address [address] [facility] [place] [address] Phone [phone] Care Team Providers Care Cardiac Cath Lab Radiology Technologist Name Role Phone Stephany Gilbert Primary Care Provider Reason for Visit * Reason Onset Date Comments Precert Future 11/29/2024 Rituximab, emi uximab, cytoxan, prednisone Encounter Details Date Type Department Care Team (Late st Contact Info) Description 11/29/2024 Telephone Hematology/Oncology Treatment, [place] 200 [place] [address] Logan Plummer MD 200 [place] [address] Precert Future (Rituximab, brentuximab, cy... Allergies Active Allergy Reactions Criticality Noted Date [...] Capsule before bedtime. 10 Capsule 4 Active documented as of this encounter (statuses [...] encounter Miscellaneous Notes * Telephone Encounter - Lizzy Witt OSA - 12/05/2024 8:52 AM EST Pt is scheduled for inf and for labs day prior * Addendum Note - Nadiya Granados RN - 12/04/2024 4:20 PM ESTAddended by: NADIYA GRANADOS on: 12/04/2024 04:20 PM Modules accepted: Orders * Telephone Encounter - Nadiya Granados RN - 12/04/2024 4:17 PM EST Education complete. Port placement tomorrow. Transfusion . Patient requesting to check B12 level as Dr Welsh told her she needed B12 injections. Scheduling: please schedule patient for either Tuesday or early next week - labs "CBCd, CMP, LDH, uric, B12"- can be either day of or day prior - 8 hour appt "C1D1 rituximab, brentuximab, cytoxan" (Elian) Thanks! * Telephone Encounter - Nadiya Granados RN - 12/03/2024 12:05 PM EST Called patient- will review education binder with her tomorrow when she is here for venofer. See other TE- sent to gastro. She states that she was started on CellCept in the hospital and was continued on this by her PCP afterwards. * Telephone Encounter - Saul Ramos RN - 11/30/2024 10:48 AM EST Referral entered. Port is scheduled 12/05. Awaiting for medication arrival at [facility]. * Telephone Encounter - Nadiya Granados RN - 11/29/2024 3:56 PM EST Order received for rituximab, brentuximab, cytoxan, prednisone. [place] plan built. Referral entered. Consent signed 11/29/24. 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 Port placement still needs to be scheduled. 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 [facility]: is brentuximab available? documented in this encounter Plan of Treatment Upcoming Encounters Date Type Department Care Team (Late st Contact Info) Description 12/10/2024 1:30 PM EST Hem/Onc Treatment Hematology/Oncology Treatment, [place] 200 [facility] [phone] Kaykay, Chair 1 Hem Onc Scenery [address] [place], [place] [address] 12/11/2024 8:15 AM EST Hem/Onc Treatment Hematology/Oncology Treatment, [place] 200 [facility], [place] [phone] Kaykay, Chair 1 Hem Onc Scenery 200 [facility] [place], [place] [address] 12/18/2024 2:00 PM EST Hem/Onc Treatment Hematology/Oncology Treatment, [place] 200 [facility], [place] [phone] Kaykay, Chair 11 Hem Onc Scenery 200 [facility] [place] [address] 12/25/2024 2:00 PM EST Hem/Onc Treatment Hematology/Oncology Treatment, [place] 200 [facility], [place] [phone] Kaykay, Chair 6 Hem Onc Scenery 200 [facility] [place], [place] [address] Scheduled Orders Name Type Priority Associated Diagnoses Orde r Schedule TYPE AND SCREEN Lab Routine Anemia Expected: 12/04/2024, Expires: 01/04/2026 VITAMIN B12 Lab STAT Anemia 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) Encounter for long-term (current) use of medications Expected: 12/04/2024, Expires: 12/04/2025 Scheduled Procedures Name Priority Associated Diagnoses Date/Ti [...] D LEVEL ONCE IN A LIFETIME-USE SMARTSET# 20387 Completed 10/25/2008 Pneumococcal Vaccine: 50+ Years Completed [...] as of this encounter Visit Diagnoses Diagnosis Anemia- Primary Anemia, unspecified 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) Encounter for long-term (current) use of medications Encounter for long-term (current) use of other medications documented in this encounter Care Teams Cardiac Cath Lab Radiology Technologist Relationship Specialty Start Date End Date Stephany Gilbert CRNP [address] [place] [address] [place] [address] PCP - General Nurse Practitioner 02/02/23 documented as of this encounter
--- OUTSIDE RECORDS SUMMARY | 2024-12-11 03:43 | External Medical Summary ---
Author Name Unknown Address Unknown Organization K09:[facility] [place] [address] Laboratory Report Ordering Provider Test Date Status ERIN FLORES 12/10/2024 14:05:44 Final Observation Date Value Abnormality Reference (Units ) Status SYNC LEUKOCYTES IN BLOOD BY AUTOMATED COUNT 12/10/2024 14:05:44 11.11 Above high normal 4.00-10.80 (K/uL) Final Neutrophils/100 leukocytes in Blood by Manual count 12/10/2024 14:05:44 75.0 40.0-75.0 (%) Final Lymphocytes/100 leukocytes in Blood by Manual count 12/10/2024 14:05:44 10.0 Below low normal 18.0-42.0 (%) Final Monocytes/100 leukocytes in Blood by Manual count 12/10/2024 14:05:44 13.0 Above high normal 1.0-11.0 (%) Final Metamyelocytes/100 leukocytes in Blood by Manual count 12/10/2024 14:05:44 2.0 Above high normal <=0.0 (%) Final Neutrophils [#/volume] in Blood by Manual count 12/10/2024 14:05:44 8.33 Above high normal 1.80-7.70 (K/uL) Final Lymphocytes [#/volume] in Blood by Manual count 12/10/2024 14:05:44 1.11 1.00-4.80 (K/uL) Final Monocytes [#/volume] in Blood by Manual count 12/10/2024 14:05:44 1.44 Above high normal 0.00-1.10 (K/uL) Final Metamyelocytes [#/volume] in Blood by Manual count 12/10/2024 14:05:44 0.22 Above high normal <=0.00 (K/uL) Final Nucleated erythrocytes/100 leukocytes [Ratio] in Blood by Automated count 12/10/2024 14:05:44 Final Acanthocytes [Presence] in Blood by Light microscopy 12/10/2024 14:05:44 Moderate Abnormal None Seen Final Performing Location [facility] [address]- [address] [place] [address]
--- OUTSIDE RECORDS SUMMARY | 2024-12-11 03:43 | External Medical Summary ---
Author Name Unknown Address Unknown Organization K09:[facility] [address] [place] [address] Laboratory Report Ordering Provider Test Date Status ERIN FLORES 12/10/2024 14:05:44 Final Observation Date Value Abnormality Reference (Units ) Status BUN 12/10/2024 14:05:44 10 6-20 (mg/dL) Final Creatinine 12/10/2024 14:05:44 0.7 0.5-1.0 (mg/dL) Final Glomerular filtration rate/1.73 sq M.predicted [Volume Rate/Area] in Serum, Plasma or Blood by Creatinine-based formula (CKD-EPI) 12/10/2024 14:05:44 >90 >=60 (mL/min) Final eGFR is calculated based on the CKD-EPI 2020 equation. Sodium 12/10/2024 14:05:44 127 Below low normal 135 -146 (mmol/L) Final Potassium 12/10/2024 14:05:44 4.1 3.5-5.1 (m mol/L) Final Cl 12/10/2024 14:05:44 92 Below low normal 98- 107 (mmol/L) Final CO2 12/10/2024 14:05:44 24 22-32 (mmo l/L) Final Anion gap 12/10/2024 14:05:44 11 7-15 (mmol /L) Final Glucose 12/10/2024 14:05:44 110 70-120 (mg /dL) Final Albumin 12/10/2024 14:05:44 2.6 Below low normal 3.8 -5.0 (g/dL) Final AST (Aspartate aminotransferase) 12/10/2024 14:05:44 225 Above high normal 10-35 (U/L) Final Alk Phos 12/10/2024 14:05:44 91 35-130 (U/ L) Final Bilirubin, Total 12/10/2024 14:05:44 0.5 <=1 .2 (mg/dL) Final Calcium 12/10/2024 14:05:44 8.8 8.4-10.2 ( mg/dL) Final Protein 12/10/2024 14:05:44 7.1 6.0-8.3 (g /dL) Final ALT (Alanine aminotransferase) 12/10/2024 14:05:44 99 Above high normal 10-35 (U/L) Final Performing Location [facility] [address] [place] [address]
--- OUTSIDE RECORDS SUMMARY | 2024-12-11 03:44 | External Medical Summary | Summary of Care ---
Author Name Unknown Organization [facility] Address [address] [facility] [place] [address] Phone [phone] Care Team Providers Care Elevator Conductor Name Role Phone Stephany Gilbert Primary Care Provider Reason for Visit * Reason Onset Date Comments Test Results Lab 12/04/2024 Encounter Details Date Type Department Care Team (Late st Contact Info) Description 12/04/2024 Telephone Hematology/Oncology Treatment, [place] [address] [facility] [place] [address] Logan Plummer MD 200 [place] [address] Test Results Lab Allergies Active Allergy Reactions Criticality Noted Date [...] encounter Miscellaneous Notes * Telephone Encounter - Nadiya Granados RN - 12/04/2024 4:14 PM EST Patient to receive 2 units of blood for hgb 6.3 (starting chemo soon). Called [facility] blood bank (Keli). They can get blood. Called [facility] (Judy) and central scheduling (Erinn). Patient scheduled for at 11am. They were unable to get patient in tomorrow around port placement. Patient verbalized understanding of appt time. Will go for T&S either this afternoon or tomorrow morning. Faxed order to [facility]/ blood bank. documented in this encounter Plan of Treatment Upcoming Encounters Date Type Department Care Team (Latest Contact Info) Description 12/05/2024 1:54 PM EST Hospital Encounter OR [facility], Operating Room, [facility] - 4th Floor 400 [place] [phone] Taco Sanchez MD 400 [place] [address] 12/05/2024 1:54 PM EST - 12/05/2024 2:55 PM EST Surgery OR [facility], Operating Room, [facility] - 4th Floor 400 [place] [phone] Taco Sanchez MD 400 [place] [address] INSERT TUNNELED CENTRAL VENOUS ACCESS WITH SUBQ PORT 12/11/2024 2:00 PM EST Hem/Onc Treatment Hematology/Oncology Treatment, [place] 200 [place] [phone] 12/18/2024 2:00 PM EST Hem/Onc Treatment Hematology/Oncology Treatment, [place] 200 [place] [address] Kaykay, Chair [address] [place] [address] 12/25/2024 2:00 PM EST Hem/Onc Treatment Hematology/Oncology Treatment, [place] 200 [place] [phone] Kaykay, Chair 6 Hem On[address] [place], [place] [address] Scheduled Procedures Name Priority Associated Diagnoses Date/Ti [...] D LEVEL ONCE IN A LIFETIME-USE SMARTSET# 01482 Completed 10/25/2008 Pneumococcal Vaccine: 50+ Years Completed [...] filedocumented as of this encounter Care Teams Elevator Conductor Relationship Specialty Start Date End Date Stephany Gilbert CRNP [address] [place] [address] [place] [address] PCP - General Nurse Practitioner 02/02/23 documented as of this encounter
--- OUTSIDE RECORDS SUMMARY | 2024-12-11 03:44 | External Medical Summary | Summary of Care ---
Author Name Unknown Organization [facility] Address [address] [facility] [place] [address] Phone [phone] Care Team Providers Care Peer Counselor Name Role Phone Stephany Gilbert Primary Care Provider Reason for Visit * Reason Onset Date Comments Precert Future 11/29/2024 Rituximab, emi uximab, cytoxan, prednisone Encounter Details Date Type Department Care Team (Late st Contact Info) Description 11/29/2024 Telephone Hematology/Oncology Treatment, [place] 200 [place] [address] Logan Plummer MD 200 [place] [address] Precert Future (Rituximab, brentuximab, cy... Allergies Active [...] as of this encounter Miscellaneous Notes * Addendum Note - Nadiya Granados RN [...] scheduled 12/05. Awaiting for medication arrival at [facility]. * Telephone Encounter - Nadiya Granados RN - 11/29/2024 3:56 PM EST Order received for rituximab, brentuximab, cytoxan, prednisone. [place] plan built. Referral entered. Consent signed 11/29/24. 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 Port placement still needs to be scheduled. 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 [facility]: is brentuximab available? documented in this encounter Plan of Treatment Upcoming Encounters Date Type Department Care Team (Latest Contact Info) Description 12/05/2024 1:54 PM EST Hospital Encounter OR [facility], Operating Room, [facility] - 4th Floor 400 [place] [phone] Taco Sanchez MD [address] [place] [address] 12/05/2024 1:54 PM EST - 12/05/2024 2:55 PM EST Surgery OR [facility], Operating Room, [facility] - 4th Floor [address] [place] [address] Tcao Sanchez MD [address] [place] [address] INSERT TUNNELED CENTRAL VENOUS ACCESS WITH SUBQ PORT 12/11/2024 2:00 PM EST Hem/Onc Treatment Hematology/Oncology Treatment, [place] 200 [place] [phone] 12/18/2024 2:00 PM EST Hem/Onc Treatment Hematology/Oncology Treatment, [place] 200 [facility], [place] [phone] Kaykay, Chair 11 Hem Onc [address] [place] [address] 12/25/2024 2:00 PM EST Hem/Onc Treatment Hematology/Oncology Treatment, [place] 200 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
--- OUTSIDE RECORDS SUMMARY | 2024-12-11 03:44 | External Medical Summary | Summary of Care ---
Author Name Unknown Organization [facility] Address [address] [facility] [place] [address] Phone [phone] Care Team Providers Care Yard Rigger Name Role Phone Stephany Gilbert Primary Care Provider Reason for Visit * Reason Onset Date Comments Precert Future 11/29/2024 Rituximab, emi uximab, cytoxan, prednisone Encounter Details Date Type Department Care Team (Late st Contact Info) Description 11/29/2024 Telephone Hematology/Oncology Treatment, [place] 200 [place] [address] Logan Plummer MD 200 [place] [address] Precert Future (Rituximab, brentuximab, cy... 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 ICD-10 update of inactive term documented as of this encounter (statuses as of 12/03/2024) Social History Tobacco Use Types Packs/Day Years [...] scheduled 12/05. Awaiting for medication arrival at [facility]. * Telephone Encounter - Nadiya Granados RN - 11/29/2024 3:56 PM EST Order received for rituximab, brentuximab, cytoxan, prednisone. [place] plan built. Referral entered. Consent signed 11/29/24. 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 Port placement still needs to be scheduled. 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 [facility]: is brentuximab available? documented in this encounter Plan of Treatment Upcoming Encounters Date Type Department Care Team (Latest Contact Info) Description 12/04/2024 2:00 PM EST Hem/Onc Treatment Hematology/Oncology Treatment, [place] [address] [place] [phone] [place], Chair 1 Hem Onc Scen[place] [address] [place] [address] 12/05/2024 1:54 PM EST Hospital Encounter OR [facility], Operating Room, [facility] - 4th Floor [address] [place] [phone] Taco Sanchez MD [address] [place] [id number] 12/05/2024 1:54 PM EST - 12/05/2024 2:55 PM EST Surgery OR [facility], Operating Room, [facility] - 4th Floor [address] [place] [phone] Taco Sanchez MD [address] [place] [id number] INSERT TUNNELED CENTRAL VENOUS ACCESS WITH SUBQ PORT Scheduled Procedures Name Priority Associated Diagnoses Date/Ti [...] D LEVEL ONCE IN A LIFETIME-USE SMARTSET# 94514 Completed 10/25/2008 Pneumococcal Vaccine: 50+ Years Completed [...] filedocumented as of this encounter Care Teams Yard Rigger Relationship Specialty Start Date End Date Stephany Gilbert CRNP [address] [place] [address] [place] [address] PCP - General Nurse Practitioner 02/02/23 documented as of this encounter
--- OUTSIDE RECORDS SUMMARY | 2024-12-11 03:44 | External Medical Summary | Summary of Care ---
Author Name Unknown Organization [facility] Address [address] [facility] [place] [address] Phone [phone] Care Team Providers Care Swimming Teacher Name Role Phone Stephany Gilbert Primary Care Provider Reason for Visit * Reason Comments IV Therapy Venofer 11/17 Encounter Details Date Type Department Care Team (Latest Contact Info) Description 12/04/2024 2:00 PM EST Hem/Onc Treatment Hematology/Oncology Treatment, [place] [address] [place] [phone] Kaykay, Chair 1 Hem Onc Scenery [address] [place] [address] Other iron deficiency anemia*; 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) Allergies Active Allergy Reactions Criticality Noted Date [...] on file documented as of this encounter Last Filed Vital Signs Vital Sign Reading Time Taken Comments Blood Pressure 130/57 12/04/2024 2:34 PM EST Pulse 125 12/04/2024 2:34 PM EST Temperature 37.3 C (99.1 F) 12/04/2024 2:34 PM ES T Respiratory Rate 16 12/04/2024 2:34 PM EST Oxygen Saturation 98% 12/04/2024 2:34 PM EST Inhaled Oxygen Concentration - - Weight - - Height - - Body Mass Index - - documented in this encounter Nursing Notes * Oneida Rene RN - 12/04/2024 4:32 PM EST Pt completed treatment without issues. IV flushed with NSS and heparin; clamped, capped and securedwith coban dressing for procedure tomorrow. Pt inquired about receiving Vit B12 injections in the clinic, as she was told she should receive them "2 times per year" by another provider. Advised pt that Vit B12 labs will be drawn with next IV treatment in 1 week. Goals: Pt will remain free from injury. Possible barriers to meeting goals: pt is a high fall risk Stability of the patient: Moderately stable - low risk of patient condition declining or worsening Summary regarding today's goals: Met: . Pt remained free from injury during treatment today. Discharged in stable condition. * Oneida Rene RN - 12/04/2024 2:35 PM EST Chair 9, Venofer 11/17. Pt has no acute concerns to report today. Pt stated she has tolerated previous iron infusions without issues. PIV established; specimen collected for ordered CBCD. Venofer infusing. Safety and Risk for Injury Patient will remain free from injury. Ensure appropriate safety devices are available. Provide and maintain safe environment. Patient instructed on use of heat and massage functions where applicable. Patient shown how to operate the heat function of the chair and to alert nursing staff if the chair feels too warm. Patient instructed on the risk of potential rose while using the heat function. documented in this encounter Plan of Treatment Upcoming Encounters Date Type Department Care Team (Latest Contact Info) Description 12/05/2024 1:54 PM EST Hospital Encounter OR [facility], Operating Room, [facility] - 4th Floor [address] [phone] Taco Sanchez MD [address] [place] [address] 12/05/2024 1:54 PM EST - 12/05/2024 2:55 PM EST Surgery OR [facility], Operating Room, [facility] - 4th Floor [address] [place] [address] [phone] Taco Sanchez MD [address] [place] [address] INSERT TUNNELED CENTRAL VENOUS ACCESS WITH SUBQ PORT 12/11/2024 2:00 PM EST Hem/Onc Treatment Hematology/Oncology Treatment, [address] [place] [address] 12/18/2024 2:00 PM EST Hem/Onc Treatment Hematology/Oncology Treatment, [address] [place] [phone] Kaykay, Chair 11 Hem Onc [address] [place] [address] 12/25/2024 2:00 PM EST Hem/Onc Treatment [facility] [place] [address] [facility] [phone] Kaykay, Chair [address] [facility] [address] [facility] [place] [address] Scheduled Procedures Name Priority Associated Diagnoses Date/Ti [...] D LEVEL ONCE IN A LIFETIME-USE SMARTSET# [id number] Completed 10/25/2008 Pneumococcal Vaccine: 50+ Years Completed [...] Not on filedocumented as of this encounter Procedures Procedure Name Priority Date/Time Associated Diagnosis Comments DIFFERENTIAL, AUTOMATED STAT 12/04/2024 2:24 PM EST 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) CBC STAT 12/04/2024 2:24 PM EST 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) CBC STAT 12/04/2024 2:24 PM EST 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) documented in this encounter Results * (ABNORMAL) DIFFERENTIAL, AUTOMATED (12/04/2024 2:24 PM EST) WBC 10.95(H) 4.00 - 10.80 K/uL 12/04/2024 2:29 PM EST [facility] 56-02 Neutrophils % 77.5(H) 40.0 - 75.0 % 12/04/2024 2:29 PM EST [facility] 56-02 Lymphocytes % 5.8(L) 18.0 - 42.0 % 12/04/2024 2:29 PM EST [facility] 56-02 Monocytes % 16.2(H) 1.0 - 11.0 % 12/04/2024 2:29 PM EST [facility] 56-02 Eosinophils % 0.1 0.0 - 6.0 % 12/04/2024 2:29 PM EST [facility] 56-02 Basophils % 0.4 0.0 - 2.0 % 12/04/2024 2:29 PM EST [facility] 56-02 Absolute Neutrophils 8.50(H) 1.80 - 7.70 K/uL 12/04/2024 2:29 PM EST [facility] 56-02 Absolute Lymphocytes 0.63(L) 1.00 - 4.80 K/ul 12/04/2024 2:29 PM EST [facility] 56-02 Absolute Monocytes 1.77(H) 0.00 - 1.10 K/uL 12/04/2024 2:29 PM EST [facility] 56 Absolute Eosinophils 0.01 0.00 - 0.70 K/uL 12/04/2024 2:29 PM EST [facility] 56 Absolute Basophils 0.04 0.00 - 0.20 K/uL 12/04/2024 2:29 PM EST [facility] 56 Blood Venous blood specimen / Unknown Venipuncture / Unknown 12/04/2024 2:24 PM EST 12/04/2024 2:25 PM EST us Logan Plummer MD LAB BLOOD ORDERABLES Final Res ult [address] [place] [address] * (ABNORMAL) CBC (12/04/2024 2:24 PM EST) WBC 10.95(H) 4.00 - 10.80 K/uL 12/04/2024 2:[address] RBC 2.31 3.85 - 5.15 M/uL 12/04/2024 2:[address] HGB 6.3(L) 12.0 - 15.3 g/dL 12/04/2024 2:29 PM [facility] 56 HCT 20.7(L) 36.0 - 45.2 % 12/04/2024 2:29 PM [facility] 56 MCV 89.6 81.5 - 97.5 fL 12/04/2024 2:29 PM [facility] 56 MCH 27.3 27.0 - 34.0 pg 12/04/2024 2:29 PM [facility] 56 MCHC 30.4 32.0 - 36.0 g/dL 12/04/2024 2:29 PM [facility] 56 RDW 17.5 11.5 - 15.5 % 12/04/2024 2:29 PM [facility] 56 PLT 475(H) 140 - 400 K/uL 12/04/2024 2:29 PM [facility] 56 MPV 8.7 6.6 - 11.1 fL 12/04/2024 2:29 PM EST [facility] 56- Blood Venous blood specimen / Unknown Venipuncture / Unknown 12/04/2024 2:24 PM EST 12/04/2024 2:25 PM EST us Logan Plummer MD LAB BLOOD ORDERABLES Final Res ult [facility] 56- [address] [place], [place] [phone] documented in this encounter Visit Diagnoses Diagnosis Other iron deficiency anemia- Primary 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) 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) documented in this encounter Administered Medications Active Administered Medications - up to 3 most recent administrations Medication Order MAR Action Action Date Dose Rate Site diphenhydrAMINE (Benadryl) inj 50 mg 50 mg, IV Push, ONCE PRN Other, Hypersensitivity Reaction, Starting on Tue12/04/24 at 1400, Until Tue12/05/24 at 1359, For 24 hoursIndications:Other iron deficiency anemia,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) EPINEPHrine 1 MG/ML inj 0.3 mg 0.3 mg, Intramuscular, ONCE PRN Other, Hypersensitivity Reaction or Anaphylaxis, Starting on Tue12/04/24 at 1400, Until Tue12/05/24 at 1359, For 24 hoursIndications:Other iron deficiency anemia,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) hEParin 100 UNIT/ML Lock Flush inj 500 Units 500 Units (5 mL), IV Lock, PRN Other, IV Flush, Starting on Tue12/04/24 at 1400, Until Tue12/05/24 at 1359, For 24 hours, Do not flush if lock, PICC, or central line not in place; IV infusing or unable to flush.Indications:Other iron deficiency anemia,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) Given 12/04/2024 4:17 PM EST 500 Units Hydrocortisone Sod Suc (PF) (Solu-Cortef) inj 100 mg 100 mg, IV Push, ONCE PRN Other, Hypersensitivity Reaction, Starting on Tue12/04/24 at 1400, Until Tue12/05/24 at 1359, For 24 hoursIndications:Other iron deficiency anemia,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) NSS infusion 500 mL, Intravenous, at 50 mL/hr, CONTINUOUS, Starting on Tue12/04/24 at 1515, Until Tue12/05/24 at 0114Indications:Other iron deficiency anemia,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) Start Infusion 12/04/2024 2:26 PM EST 500 mL 50 mL/hr oxygen GAS Inhalation, OXYGEN, First dose on Tue12/04/24 at 1600, Until Discontinued, Device/Managed by: Low Flow Device, Goal SPO2 (%): 91-95, Starting Device: Nasal Cannula, Initial Flow Rate (LPM): 2, Lowest Support: Nasal Cannula: Flow 0-6 LPM. Titrate up/down by 1 LPM., Higher Support: Non-Rebreather (NRB) Mask: Minimum of 10 LPM. Titrate to maintain bag inflation., Titration Interval: Q2 minutes and as needed., Notify Provider: For sudden DECREASE in resting SPO2 to less than 85% and when escalating delivery device., Wean patient off Oxygen when the oxygen saturation is greater than or equal to 93%Indications:Other iron deficiency anemia,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) sodium chloride 0.9 % flush central line 10 mL 10 mL, IV Push, PRN Other, IV Flush, Starting on Tue12/04/24 at 1400, Until Tue12/05/24 at 1359, For 24 hours, Do not flush if lock, PICC, or central line not in place; IV infusing or unable to flush.Indications:Other iron deficiency anemia,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) Given 12/04/2024 4:17 PM EST 10 mL Inactive Administered Medications - up to 3 most recent administrations Medication Order MAR Action Action Date Dose Rate Site Iron Sucrose (Venofer) 300 mg in NSS 250 mL ivpb 300 mg, IV Piggyback, ONCE, 1 dose, On Tue12/04/24 at 1545, Administer over 90 MinutesIndications:Other iron deficiency anemia,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) Start Infusion 12/04/2024 2:27 PM EST 300 mg 180 mL/hr documented in this encounter Care Teams Swimming Teacher Relationship Specialty Start Date End Date Stephany Gilbert CRNP [address] [facility] [place] [address] PCP - General Nurse Practitioner 02/02/23 documented as of this encounter
--- OUTSIDE RECORDS SUMMARY | 2024-12-11 03:46 | External Medical Summary ---
Author Name Unknown Address Unknown Organization : Laboratory Report Ordering Provider Test Date Status TY ABDUL 11/19/2024 11:15:00 Final Observation Date Value Abnormality Reference (Units ) Status Performing Location
[2024-12-11] MEDS: SODIUM CHLORIDE 0.9% 500 ML IV ONE (03:57)
[2024-12-11] MEDS: LEVOTHYROXINE SODIUM 25 MCG TABLET PO SCH (05:45)
[2024-12-11 07:34] LABS: Basophils # (auto) 0.03 K/uL (0.00-0.20); Basophils % (auto) 0.3 %; Eosinophils # (auto) 0.01 K/uL (0.00-0.50); Eosinophils % (auto) 0.1 %; Hematocrit (blood only) 22.1 % (37.0-47.0); Immature Granulocytes # (auto) 0.19 K/uL (0.01-0.20); Immature Granulocytes % (auto) 1.8 %; Lymphocytes # (auto) 0.45 K/uL (1.20-3.40); Lymphocytes % (auto) 4.3 %; Mean Corpuscular Hemoglobin 27.3 pg (25.0-34.0); Mean Corpuscular Hgb Conc 31.7 g/dL (32.0-36.0); Mean Corpuscular Volume 86.3 fL (80.0-100.0); Monocytes # (auto) 1.85 K/uL (0.11-0.59); Monocytes % (auto) 17.7 %; Neutrophils # (auto) 7.94 K/uL (1.40-6.50); Neutrophils % (auto) 75.8 %; Platelet Count 404 K/uL (130-400); RDW Coefficient of Variation 16.5 % (11.5-14.5); RDW Standard Deviation 52.4 fL (36.4-46.3); Red Blood Count 2.56 M/uL (4.20-5.40); White Blood Count 10.47 K/ul (4.8-10.8)
[2024-12-11 07:52] LABS: Albumin Globulin Ratio 0.7 (0.9-2); Albumin Level 2.4 gm/dl (3.4-5.0); BUN Creatinine Ratio 15.5 (10-20); Bilirubin,Total 0.4 mg/dl (0.2-1.0); Calcium 8.3 mg/dl (8.6-10.3); Creatinine Clr Calc Pharmacy 77.7 ml/min; Globulin 3.6 gm/dl (2.5-4.0); Potassium 3.7 mmol/L (3.5-5.1)
[2024-12-11 07:58] LABS: Troponin I High Sensitivity 14.6 pg/ml (0-14)
[2024-12-11 08:24] LABS: Polychromasia 1+
[2024-12-11] MEDS: DULoxetine HCL 30 MG CAP PO SCH (10:08)
[2024-12-11] MEDS: GABAPENTIN 800 MG TAB PO SCH ×2 (10:08→20:00)
[2024-12-11] MEDS: allopurinoL 300 MG TAB PO SCH (10:08)
--- NOTE | 2024-12-11 12:45 | Electrocardiogram Report ---
Test Reason : Blood Pressure : */* mmHG Vent. Rate : 131 BPM Atrial Rate : 131 BPM P-R Int : 150 ms QRS Dur : 92 ms QT Int : 298 ms P-R-T Axes : 44 -21 74 degrees QTcB Int : 440 ms Sinus tachycardia Minimal voltage criteria for LVH, may be normal variant Poor R-wave progression: anterior MD vs. lead placement vs. LVH Abnormal ECG When compared with ECG of 08-Aug-2024 15:14, No significant change was found Confirmed by Adelfo Pugh ([id number]) on 12/11/2024 12:44:55 PM Referred By: REFERRED SELF Confirmed By: Adelfo Pugh
[2024-12-11] MEDS: HEPARIN 100 UNIT/ML 5ML FLUSH FLUSH PRN (13:08)
--- NOTE | 2024-12-11 13:36 | Gastrointestinal Consultation ---
Date of Consultation December 11, 2024 Assessment & Plan (1) Systemic sclerosis: continue her current medications,. (2) Iron deficiency anemia: 74-year-old female with past medical history of crest syndrome, ILD, hypothyroidism, GERD, recently diagnosed mesenteric lymphoma supposed to start chemotherapy tomorrow 12/11. She has a long and complicated GI history as she has been having chronically dark stools for the past few months and progressive anemia. She underwent a colonoscopy in 2022: Sigmoid diverticulosis with hemorrhoids. Normal colon otherwise in her normal terminal ileum. An EGD done at that time showed congestion of the antrum biopsies were done to rule out GAVE and it was not seen. No celiac was noted. A repeat endoscopy was done in 2023 again which showed significant erythema in the antrum but no obvious GAVE and no obvious bleeding. She represents with anemia and is planning to start chemotherapy with oncology for her lymphoma. Again, she is noted to have dark stools on and off. She has had an extensive workup and continues to have chronic anemia. 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 It is unclear to me at this point whether she has GAVE versus AVMs as this is likely the source of her bleeding. We will look a push enteroscopy to see what is going on (3) Gastric antral vascular ectasia: see above. History of Present Illness Reason for Consultation: Anemia to 7.0 Requesting Physician: Chrissy Lynn Attending Physician: Ricky Chavez MD History of Present Illness 74-year-old female with past medical history of crest syndrome, ILD, hypothyroidism, GERD, recently diagnosed mesenteric lymphoma supposed to start chemotherapy tomorrow 12/11. She was referred by her oncologist, Dr. Plummer due to abnormal blood work. Patient was found to have electrolyte abnormalities of hyponatremia and hypomagnesia. She also has mild leukocytosis with a low-grade fever as well as transaminitis. Her LFTs are improving since admission. She has a long and complicated GI history as she has been having chronically dark stools for the past few months and progressive anemia. She underwent a colonoscopy in 2022: Sigmoid diverticulosis with hemorrhoids. Normal colon otherwise in her normal terminal ileum. An EGD done at that time showed congestion of the antrum biopsies were done to rule out GAVE and it was not seen. No celiac was noted. A repeat endoscopy was done in 2023 again which showed significant erythema in the antrum but no obvious GAVE and no obvious bleeding. She represents with anemia and is planning to start chemotherapy with oncology for her lymphoma. Again, she is noted to have dark stools on and off. Allergies Allergy/AdvReac Type Severity Reaction Status Date / Time nickel AdvReac Severe RASH- Verified 12/06/24 10:48 HANDS AND OTHER AREAS BREAK OUT Home Medications Medication Instructions Recorded Confirmed Type calcium carbonate 600 mg PO QAM 01/06/20 12/10/24 History cyanocobalamin (vitamin B-12) 1,000 mcg PO .tuesday12/22/22 12/10/24 History 1,000 mcg tablet albuterol sulfate 90 mcg/actuation 2 puff inhalation Q6H PRN 12/30/22 12/10/24 Rx aerosol inhaler Shortness Of Breath Or Wheezing #18 grams desoximetasone 0.25 % topical 1 applic topical DAILY #60 grams 09/19/23 12/10/24 Rx ointment baclofen 10 mg tablet See Rx Instructions PO .COMPLEX 07/20/24 12/10/24 Rx #270 tabs ascorbic acid (vitamin C) 1,000 mg 1 g PO QAM 08/08/24 12/10/24 History tablet (Vitamin C) cholecalciferol (vitamin D3) 25 25 mcg PO QAM 08/08/24 12/10/24 History mcg (1,000 unit) tablet (Vitamin D3) gabapentin 800 mg tablet 800 mg PO UD 08/08/24 12/10/24 History levothyroxine 25 mcg tablet 25 mcg PO DAILYBB 08/08/24 12/10/24 History mycophenolate mofetil 500 mg 1,000 mg PO .ON HOLD 08/08/24 12/10/24 History tablet (CellCept) omega-3 fatty acids 500 mg capsule 500 mg PO QAM 08/08/24 12/10/24 History rosuvastatin 10 mg tablet 10 mg PO HS 08/08/24 12/10/24 History valsartan 80 mg tablet 80 mg PO QAM 08/08/24 12/10/24 History Oxygen Home #1 ea 09/18/24 12/06/24 Rx allopurinol 300 mg tablet 300 mg PO DAILY 10/31/24 12/10/24 History pantoprazole 40 mg tablet,delayed 40 mg PO BID #180 tabs 11/19/24 12/10/24 Rx release duloxetine 30 mg capsule,delayed 30 mg PO DAILY #90 caps 11/28/24 12/10/24 Rx release Patient History Medical History SBO (small bowel obstruction) Surgical History History of reconstruction of right breast History of colonoscopy History of subtotal mastectomy of right breast Family History Father Myocardial infarction Sister Breast cancer Ovarian cancer Brother Colon cancer Diabetes Prostate cancer Colorectal cancer Mother Coronary heart disease Diabetes Social History Smoking Status: Former smoker Tobacco Type: Cigarettes Age Started Using Tobacco: 29; Age Quit Using Tobacco: 39; packs per day: 0.25; Cigarettes Per Day: 1-1 1/2 PPD; Second Hand Exposure: No; Do You Dip or Chew Tobacco: No; Hx Alcohol Use: No Hx Substance Use: No Preferred Language: [place] Communication Ability: Effective Visual Impairment: No Limitations Hearing Ability: Normal Double End Production Grinder Required: No Beliefs That Will Affect Care: None marital status: Current Living Situation: Spouse Current Living Situation Comment: lives with current occupational status: retired Feels Safe at Home: Yes Safety Concerns: Feels Safe At This Time Childhood Exposure to Second-Hand Smoke: Yes Diet: regular caffeine: No Dental Care, Regularly: Yes Physical Activity Frequency: Daily Seatbelt Use: always Sunscreen Use: Yes Assistive Devices: Denture - Upper, Denture - Lower and Glasses Review of Systems Review of Systems: All systems reviewed & are unremarkable except as noted in HPI & below Physical Exam Physical Exam: Physical Exam: General: Well nourished and well developed in NAD HEENT: EOMI, PERRL Neck: trachea midline, no lad Lungs: CTA b, bilateral bs present Heart: RRR, no M and no edema Abd: soft, NT/ND, NABS Musculoskeletal: no c/c/e, normal strength B Neuro: CN2-12 intact, normal gait, normal strength Psych: normal affect and mood, euthymic. Results & Data Vital Signs (Past 12 Hours) Vital Signs Temp Pulse Pulse Resp BP Pulse Ox O2 Del Method 12/11/24 13:07 36.9 C 109 H 18 139/65 94 Room Air 12/11/24 11:19 37.6 C H 97 H 18 136/73 92 Room Air 12/11/24 07:43 36.8 C 108 H 18 110/65 96 Room Air 12/11/24 07:29 121 H 12/11/24 03:24 37.6 C H 12/11/24 02:17 38.9 C H 125 H 18 121/63 95 Room Air Laboratory Results Lab Results 12/10/24 12/10/24 12/10/24 Range/Units 15:55 16:15 16:16 WBC 12.43 H (4.8-10.8) K/ul RBC 2.83 L (4.20-5.40) M/uL Hgb 7.7 L (12.0-16.0) g/dl Hct 23.9 L (37.0-47.0) % MCV 84.5 (80.0-100.0) fL MCH 27.2 (25.0-34.0) pg MCHC 32.2 (32.0-36.0) g/dL RDW Std Deviation 50.9 H (36.4-46.3) fL RDW Coeff of Colette 16.5 H (11.5-14.5) % Plt Count 428 H (130-400) K/uL MPV 9.4 (9.4-12.4) fL Immature Gran % (Auto) 1.3 % Neut % (Auto) 72.7 % Lymph % (Auto) 8.1 % Boone % (Auto) 17.5 % Eos % (Auto) 0.1 % Baso % (Auto) 0.3 % Neut # (Auto) 9.03 H (1.40-6.50) K/uL Lymph # (Auto) 1.01 L (1.20-3.40) K/uL Boone # (Auto) 2.18 H (0.11-0.59) K/uL Eos # (Auto) 0.01 (0.00-0.50) K/uL Baso # (Auto) 0.04 (0.00-0.20) K/uL Immature Gran # (Auto) 0.16 (0.01-0.20) K/uL Polychromasia 1+ PT 13.9 H (9.0-12.0) Seconds INR 1.3 H (0.9-1.1) APTT 33 H (21-31) Seconds PTT Ratio 1.2 Sodium 126 L (136-145) mmol/L Potassium 4.1 (3.5-5.1) mmol/L Chloride 93 L (98-107) mmol/L Carbon Dioxide 25 (21-32) mmol/L Anion Gap 8 (3-11) BUN 10 (6-23) mg/dl Creatinine 0.61 (0.6-1.2) mg/dl Est Cr Clr Drug Dosing 73.9 ml/min eGFR 94.34 BUN/Creatinine Ratio 16.4 (10-20) Glucose 90 (70-99(Fasting)) mg/dl Osmolality 257 L (280-300) mOsm/kg Lactate 0.9 (0.4-2.0) mmol/L Calcium 8.8 (8.6-10.3) mg/dl Phosphorus 3.2 (2.5-4.9) mg/dl Magnesium 1.6 L (1.7-2.4) mg/dl Total Bilirubin 0.7 (0.2-1.0) mg/dl AST 195 H (13-39) U/L ALT 95 H (7-52) U/L Alkaline Phosphatase 79 (34-104) U/L Troponin I High Sens 16.1 H (0-14) pg/ml Total Protein 7.0 (6.0-8.3) gm/dl Albumin 2.8 L (3.4-5.0) gm/dl Globulin 4.2 H (2.5-4.0) gm/dl Albumin/Globulin Ratio 0.7 L (0.9-2) Lipase 26 (11-82) U/L Procalcitonin 0.62 H (0-0.5) ng/ml Cortisol AM Sample (6.2-22.6) mcg/dl Urine Color Yellow Urine Appearance Clear (Clear) Urine pH 6.5 (4.5-7.5) Ur Specific Baker 1.019 (1.000-1.030) Urine Protein 1+ H (Negative) Urine Glucose (UA) Negative (Negative) Urine Ketones Trace H (Negative) Urine Blood Negative (Negative) Urine Nitrite Negative (Negative) Urine Bilirubin Negative (Negative) Urine Urobilinogen Negative (Negative) Ur Leukocyte Esterase Trace H (Negative) Urine WBC (Auto) 0-5 (0-5) /hpf Urine RBC (Auto) 6-10 H (0-2) /hpf U Hyaline Cast (Auto) 0-2 (0-2) /lpf U Epithel Cells (Auto) 0-2 (0-2) /hpf Urine Bacteria (Auto) None Seen (None Seen) Urine Osmolality (500-800) mOsm/kg Ur Random Sodium mmol/L Adenovirus (PCR) Not Detected (NotDetected) B. pertussis DNA (PCR) Not Detected (NotDetected) B.parapertussis DNA PCR Not Detected (NotDetected) Lyme Disease Screen Negative (Negative) C. pneumoniae DNA (PCR) Not Detected (NotDetected) Coronavirus OC43 (PCR) Not Detected (NotDetected) Coronavirus HKU1 (PCR) Not Detected (NotDetected) Coronavirus 229E (PCR) Not Detected (NotDetected) SARS-CoV-2 (PCR) Not Detected (NotDetected) Coronavirus NL63 (PCR) Not Detected (NotDetected) Human Metapneumovir PCR Not Detected (NotDetected) Influenza Type A (PCR) Not Detected (NotDetected) Influenza Type B (PCR) Not Detected (NotDetected) M. pneumoniae (PCR) Not Detected (NotDetected) Parainfluenza 1 (PCR) Not Detected (NotDetected) Parainfluenza 2 (PCR) Not Detected (NotDetected) Parainfluenza 3 (PCR) Not Detected (NotDetected) Parainfluenza 4 (PCR) Not Detected (NotDetected) RSV (PCR) Not Detected (NotDetected) Entero/Rhino (PCR) Not Detected (NotDetected) Blood Type Antibody Screen 12/10/24 12/10/24 12/10/24 Range/Units 17:59 18:28 20:32 WBC (4.8-10.8) K/ul RBC (4.20-5.40) M/uL Hgb 8.0 L (12.0-16.0) g/dl Hct 24.7 L (37.0-47.0) % MCV (80.0-100.0) fL MCH (25.0-34.0) pg MCHC (32.0-36.0) g/dL RDW Std Deviation (36.4-46.3) fL RDW Coeff of Colette (11.5-14.5) % Plt Count (130-400) K/uL MPV (9.4-12.4) fL Immature Gran % (Auto) % Neut % (Auto) % Lymph % (Auto) % Boone % (Auto) % Eos % (Auto) % Baso % (Auto) % Neut # (Auto) (1.40-6.50) K/uL Lymph # (Auto) (1.20-3.40) K/uL Boone # (Auto) (0.11-0.59) K/uL Eos # (Auto) (0.00-0.50) K/uL Baso # (Auto) (0.00-0.20) K/uL Immature Gran # (Auto) (0.01-0.20) K/uL Polychromasia PT (9.0-12.0) Seconds INR (0.9-1.1) APTT (21-31) Seconds PTT Ratio Sodium 126 L (136-145) mmol/L Potassium (3.5-5.1) mmol/L Chloride (98-107) mmol/L Carbon Dioxide (21-32) mmol/L Anion Gap (3-11) BUN (6-23) mg/dl Creatinine (0.6-1.2) mg/dl Est Cr Clr Drug Dosing ml/min eGFR BUN/Creatinine Ratio (10-20) Glucose (70-99(Fasting)) mg/dl Osmolality (280-300) mOsm/kg Lactate (0.4-2.0) mmol/L Calcium (8.6-10.3) mg/dl Phosphorus (2.5-4.9) mg/dl Magnesium (1.7-2.4) mg/dl Total Bilirubin (0.2-1.0) mg/dl AST (13-39) U/L ALT (7-52) U/L Alkaline Phosphatase (34-104) U/L Troponin I High Sens 15.2 H (0-14) pg/ml Total Protein (6.0-8.3) gm/dl Albumin (3.4-5.0) gm/dl Globulin (2.5-4.0) gm/dl Albumin/Globulin Ratio (0.9-2) Lipase (11-82) U/L Procalcitonin (0-0.5) ng/ml Cortisol AM Sample (6.2-22.6) mcg/dl Urine Color Urine Appearance (Clear) Urine pH (4.5-7.5) Ur Specific Baker (1.000-1.030) Urine Protein (Negative) Urine Glucose (UA) (Negative) Urine Ketones (Negative) Urine Blood (Negative) Urine Nitrite (Negative) Urine Bilirubin (Negative) Urine Urobilinogen (Negative) Ur Leukocyte Esterase (Negative) Urine WBC (Auto) (0-5) /hpf Urine RBC (Auto) (0-2) /hpf U Hyaline Cast (Auto) (0-2) /lpf U Epithel Cells (Auto) (0-2) /hpf Urine Bacteria (Auto) (None Seen) Urine Osmolality 261 L (500-800) mOsm/kg Ur Random Sodium 22 mmol/L Adenovirus (PCR) (NotDetected) B. pertussis DNA (PCR) (NotDetected) B.parapertussis DNA PCR (NotDetected) Lyme Disease Screen (Negative) C. pneumoniae DNA (PCR) (NotDetected) Coronavirus OC43 (PCR) (NotDetected) Coronavirus HKU1 (PCR) (NotDetected) Coronavirus 229E (PCR) (NotDetected) SARS-CoV-2 (PCR) (NotDetected) Coronavirus NL63 (PCR) (NotDetected) Human Metapneumovir PCR (NotDetected) Influenza Type A (PCR) (NotDetected) Influenza Type B (PCR) (NotDetected) M. pneumoniae (PCR) (NotDetected) Parainfluenza 1 (PCR) (NotDetected) Parainfluenza 2 (PCR) (NotDetected) Parainfluenza 3 (PCR) (NotDetected) Parainfluenza 4 (PCR) (NotDetected) RSV (PCR) (NotDetected) Entero/Rhino (PCR) (NotDetected) Blood Type O Positive Antibody Screen NEGATIVE 12/11/24 Range/Units 07:00 WBC 10.47 (4.8-10.8) K/ul RBC 2.56 L (4.20-5.40) M/uL Hgb 7.0 L (12.0-16.0) g/dl Hct 22.1 L (37.0-47.0) % MCV 86.3 (80.0-100.0) fL MCH 27.3 (25.0-34.0) pg MCHC 31.7 L (32.0-36.0) g/dL RDW Std Deviation 52.4 H (36.4-46.3) fL RDW Coeff of Colette 16.5 H (11.5-14.5) % Plt Count 404 H (130-400) K/uL MPV 9.0 L (9.4-12.4) fL Immature Gran % (Auto) 1.8 % Neut % (Auto) 75.8 % Lymph % (Auto) 4.3 % Boone % (Auto) 17.7 % Eos % (Auto) 0.1 % Baso % (Auto) 0.3 % Neut # (Auto) 7.94 H (1.40-6.50) K/uL Lymph # (Auto) 0.45 L (1.20-3.40) K/uL Boone # (Auto) 1.85 H (0.11-0.59) K/uL Eos # (Auto) 0.01 (0.00-0.50) K/uL Baso # (Auto) 0.03 (0.00-0.20) K/uL Immature Gran # (Auto) 0.19 (0.01-0.20) K/uL Polychromasia 1+ PT (9.0-12.0) Seconds INR (0.9-1.1) APTT (21-31) Seconds PTT Ratio Sodium 134 L (136-145) mmol/L Potassium 3.7 (3.5-5.1) mmol/L Chloride 103 (98-107) mmol/L Carbon Dioxide 25 (21-32) mmol/L Anion Gap 6 (3-11) BUN 9 (6-23) mg/dl Creatinine 0.58 L (0.6-1.2) mg/dl Est Cr Clr Drug Dosing 77.7 ml/min eGFR 95.49 BUN/Creatinine Ratio 15.5 (10-20) Glucose 92 (70-99(Fasting)) mg/dl Osmolality (280-300) mOsm/kg Lactate (0.4-2.0) mmol/L Calcium 8.3 L (8.6-10.3) mg/dl Phosphorus (2.5-4.9) mg/dl Magnesium 2.0 (1.7-2.4) mg/dl Total Bilirubin 0.4 (0.2-1.0) mg/dl AST 100 H (13-39) U/L ALT 64 H (7-52) U/L Alkaline Phosphatase 65 (34-104) U/L Troponin I High Sens 14.6 H (0-14) pg/ml Total Protein 6.0 (6.0-8.3) gm/dl Albumin 2.4 L (3.4-5.0) gm/dl Globulin 3.6 (2.5-4.0) gm/dl Albumin/Globulin Ratio 0.7 L (0.9-2) Lipase (11-82) U/L Procalcitonin (0-0.5) ng/ml Cortisol AM Sample 13.29 (6.2-22.6) mcg/dl Urine Color Urine Appearance (Clear) Urine pH (4.5-7.5) Ur Specific Baker (1.000-1.030) Urine Protein (Negative) Urine Glucose (UA) (Negative) Urine Ketones (Negative) Urine Blood (Negative) Urine Nitrite (Negative) Urine Bilirubin (Negative) Urine Urobilinogen (Negative) Ur Leukocyte Esterase (Negative) Urine WBC (Auto) (0-5) /hpf Urine RBC (Auto) (0-2) /hpf U Hyaline Cast (Auto) (0-2) /lpf U Epithel Cells (Auto) (0-2) /hpf Urine Bacteria (Auto) (None Seen) Urine Osmolality (500-800) mOsm/kg Ur Random Sodium mmol/L Adenovirus (PCR) (NotDetected) B. pertussis DNA (PCR) (NotDetected) B.parapertussis DNA PCR (NotDetected) Lyme Disease Screen (Negative) C. pneumoniae DNA (PCR) (NotDetected) Coronavirus OC43 (PCR) (NotDetected) Coronavirus HKU1 (PCR) (NotDetected) Coronavirus 229E (PCR) (NotDetected) SARS-CoV-2 (PCR) (NotDetected) Coronavirus NL63 (PCR) (NotDetected) Human Metapneumovir PCR (NotDetected) Influenza Type A (PCR) (NotDetected) Influenza Type B (PCR) (NotDetected) M. pneumoniae (PCR) (NotDetected) Parainfluenza 1 (PCR) (NotDetected) Parainfluenza 2 (PCR) (NotDetected) Parainfluenza 3 (PCR) (NotDetected) Parainfluenza 4 (PCR) (NotDetected) RSV (PCR) (NotDetected) Entero/Rhino (PCR) (NotDetected) Blood Type Antibody Screen PG Care Time/CCT Total # of Minutes Spent Total Time Spent with Patient: Total time spent is greater than 50% in coordination of care (as documented) at patient's floor/unit and/or counseling patient: Coding Level of Care Code 81136 INT INP/OBS CARE 2/55MIN Diagnoses Systemic sclerosis M34.9 Iron deficiency anemia D50.9 Gastric antral vascular ectasia K31.819
[2024-12-11] MEDS ORDERED: SODIUM CHLORIDE 0.9% 100 ML IV PRN (13:43)
[2024-12-11] MEDS ORDERED: SODIUM CHLORIDE 0.9% 50 ML IV PRN (13:43)
--- NOTE | 2024-12-11 13:45 | Hospitalist Progress Note ---
Date of Service December 11, 2024 Assessment & Plan (1) Hyponatremia: Plan: Na level 126 upon admission today 134 this is following IV fluids overnight urine osm is low urine Na is borderline low NOT c/w SIADH TSH is wnl cortisol is acceptable can stop NaCl tabs repeat BMP am (2) Hypomagnesemia: Plan: replaced resolved (3) Fever with leukocytosis and leukocyte count less than 20,000: Plan: thus far no infectious source for her fever has been found u/a negative cxr negative resp BioFire negative fever 2nd to her lymphoma? repeat CBC w/ diff in am follow cultures (4) Transaminitis: Plan: mildly high LFTs on 12/04/24 worsened yesterday now mildly improved today repeat LFTs am etiology? reactive? if LFTs remain high then obtain dedicated RUQ u/s hold statin for now (5) GI bleed: Plan: prior h/o GAVE active GI bleed suspected dark/melena stools seen at home recently GI consulted; they are planning EGD in am tomorrow NPO after MN tonight for such PPI bid IV Tx 1 unit PRBCs for Hb of 7 this am of note - pt has received 4 units PRBCs over the past 2 weeks (managed by Dr Plummer) (6) Lymphoma: Plan: recent diagnosis of such follows with Dr Logan Plummer - [facility] oncology was to start chemotherapy this week (7) Elevated troponin: Plan: myocardial demand ischemia in setting of anemia, sinus tachycardia, fever, etc. (8) CREST (calcinosis, Raynaud's phenomenon, esophageal dysfunction, sclero dactyly, telangiectasia): Plan: and baseline ILD typically on cellcept BID for such I corresponded with Dr Plummer from heme/onc today - he prefers cellcept is held for now in light of fevers, new dx of lymphoma, etc. (9) Tachycardia: Plan: thus far sinus tach only no SVT, a.fib, a.flutter, etc. TSH wnl anemia could be contributing chronic ILD could be contributing fever could be contributing follow on telemetry echo ordered to check LV function Plan Chronic stable diagnoses: HLD - hold statin due to elevated LFTs ILD - continue albuterol prn; ILD is the likely cause of her chronic cough neuropathy - continue gabapentin hypothyroidism - continue levothyroxine; TSH wnl HTN - hold valsartan for now updated at bedside today Admission and Anticipated Discharge Date Admission Date: December 10, 2024 Subjective patient resting comfortably in bed at bedside denies any abd pain, nausea, emesis, or overt GI bleeding denies headache, URI symptoms does have a chronic, intermittent cough that comes in "fits" only mild cough today -- dry, no significant sputum no dyspnea at rest but does have MURRAY "legs get tired" when she walks to the bathroom no dizziness or lightheadedness tele - ongoing tachycardia Review of Systems Review of Systems: gen - Tm 38.9 overnight cv - no chest pain pulm - no wheezing GI - no pain Physical Exam Physical Exam: gen - NAD, resting comfortably in bed skin - generalized pallor neck - no JVD mouth - MMM; no thrush heart - tachy, s1 s2, no murmur lungs - CTA b/l except bases with mild, fine, dry rales abd - soft NT ND BS+ ext - no edema, pulses 2+ b/l psych - a/o x 3 Results & Data Results & Data Vital Signs (Past 12 Hours) Vital Signs Temp Pulse Pulse Resp BP Pulse Ox O2 Del Method 12/11/24 13:07 36.9 C 109 H 18 139/65 94 Room Air 12/11/24 11:19 37.6 C H 97 H 18 136/73 92 Room Air 12/11/24 07:43 36.8 C 108 H 18 110/65 96 Room Air 12/11/24 07:29 121 H 12/11/24 03:24 37.6 C H 12/11/24 02:17 38.9 C H 125 H 18 121/63 95 Room Air Laboratory Results Laboratory Results - last 24 hr 12/10/24 12/10/24 12/10/24 16:16 17:59 18:28 WBC RBC Hgb Hct MCV MCH MCHC RDW Std Deviation RDW Coeff of Colette Plt Count MPV Immature Gran % (Auto) Neut % (Auto) Lymph % (Auto) Gem % (Auto) Eos % (Auto) Baso % (Auto) Neut # (Auto) Lymph # (Auto) Gem # (Auto) Eos # (Auto) Baso # (Auto) Immature Gran # (Auto) Polychromasia Sodium 126 L Potassium Chloride Carbon Dioxide Anion Gap BUN Creatinine Est Cr Clr Drug Dosing eGFR BUN/Creatinine Ratio Glucose Osmolality 257 L Calcium Magnesium Total Bilirubin AST ALT Alkaline Phosphatase Troponin I High Sens Total Protein Albumin Globulin Albumin/Globulin Ratio Cortisol AM Sample Urine Osmolality 261 L Ur Random Sodium 22 Blood Type Antibody Screen Crossmatch 12/10/24 12/11/24 20:32 07:00 WBC 10.47 RBC 2.56 L Hgb 8.0 L 7.0 L Hct 24.7 L 22.1 L MCV 86.3 MCH 27.3 MCHC 31.7 L RDW Std Deviation 52.4 H RDW Coeff of Colette 16.5 H Plt Count 404 H MPV 9.0 L Immature Gran % (Auto) 1.8 Neut % (Auto) 75.8 Lymph % (Auto) 4.3 Gem % (Auto) 17.7 Eos % (Auto) 0.1 Baso % (Auto) 0.3 Neut # (Auto) 7.94 H Lymph # (Auto) 0.45 L Gem # (Auto) 1.85 H Eos # (Auto) 0.01 Baso # (Auto) 0.03 Immature Gran # (Auto) 0.19 Polychromasia 1+ Sodium 134 L Potassium 3.7 Chloride 103 Carbon Dioxide 25 Anion Gap 6 BUN 9 Creatinine 0.58 L Est Cr Clr Drug Dosing 77.7 eGFR 95.49 BUN/Creatinine Ratio 15.5 Glucose 92 Osmolality Calcium 8.3 L Magnesium 2.0 Total Bilirubin 0.4 AST 100 H ALT 64 H Alkaline Phosphatase 65 Troponin I High Sens 15.2 H 14.6 H Total Protein 6.0 Albumin 2.4 L Globulin 3.6 Albumin/Globulin Ratio 0.7 L Cortisol AM Sample 13.29 Urine Osmolality Ur Random Sodium Blood Type O Positive Antibody Screen NEGATIVE Crossmatch See Detail PG Care Time/CCT Total # of Minutes Spent Total Time Spent with Patient: Total time spent is greater than 50% in coordination of care (as documented) at patient's floor/unit and/or counseling patient: Coding Level of Care Code 80106 SUB INP/OBS CARE 3/50MIN Diagnoses Hyponatremia E87.1 Hypomagnesemia E83.42 Fever with leukocytosis and leukocyte count less than 20,000 D72.829 Transaminitis R74.01 GI bleed K92.2 Lymphoma C85.90 Elevated troponin R79.89 CREST (calcinosis, Raynaud's phenomenon, esophageal dysfunction, sclerodactyly, telangiectasia) M34.1 Tachycardia R00.0
--- NOTE | 2024-12-11 15:34 | XCELERA ---
[id number]
[2024-12-11] MEDS: ACETAMINOPHEN 500 MG TAB PO ONE (19:57)
[2024-12-12] MEDS: FUROSEMIDE 40 MG/4 ML VIAL IV ONE ×4 (04:45→07:22)
[2024-12-12] MEDS: METOPROLOL TARTRATE 1 MG/ML VIAL IV ONE (04:50)
--- NOTE | 2024-12-12 05:09 | Communication Note ---
Date of Service: December 12, 2024 Notified by nursing at 4:57 AM: that the patient experienced sudden onset of shortness of breath and tachycardia. Upon assessment at the bedside, the patient was awake and alert but tachypneic, requiring an oxygen mask. Vital signs: Oxygen saturation 72%, BP 215/96, heart rate in the 160s (SVT on EKG). Lung auscultation revealed crackles and rhonchi. Patient placed on BiPaP. Lasix 40 mg IV bolus and Lopressor 5 mg IV were administered. Chest XRAY: with findings concerning of flash pulmonary edema. The patient was transferred to PCU. SOB slightly improved, sat 95 on BiPaP. BP 145/101, HR 145. Another dose of 5 mg Lopressor given to patient. Renteria was placed. Will continue to monitor. updated.
[2024-12-12] MEDS: METOPROLOL TARTRATE 1 MG/ML VIAL IV STA ×2 (05:55→05:58)
--- NOTE | 2024-12-12 06:01 | XRay Report ---
EXAM: XR chest 1V portable CLINICAL HISTORY: Shortness of breath TECHNIQUE: An X-ray image of the chest is obtained in AP projection. COMPARISON: 12/10/2024 FINDINGS: Pulmonary Parenchyma: Interval significant progression of bilateral inhomogeneous patchy airspace opacification/consolidations, more marked in lower zones. Costophrenic angles are obscured, small pleural effusion cannot be ruled out. Heart and Mediastinum: Heart size and shape are normal. No mediastinal widening or masses. No hilar or mediastinal lymphadenopathy. Bony Thorax: Bony thorax appears intact without fractures or deformities. Soft Tissues: Soft tissues overlying the chest wall are unremarkable. Line: Left approach central venous catheter in place with tip in SVC IMPRESSION: 1. Interval significant progression of bilateral inhomogeneous patchy airspace opacification/consolidations, more marked in lower zones. 2. Costophrenic angles are obscured, small pleural effusion cannot be ruled out. 3. Left approach central venous catheter in place with tip in SVC. Electronically signed by Mine Wallace 12-12-2024 06:00 AM
[2024-12-12 06:21] LABS: Albumin Globulin Ratio 0.6 (0.9-2); Albumin Level 2.8 gm/dl (3.4-5.0); BUN Creatinine Ratio 12.4 (10-20); Bilirubin,Total 0.5 mg/dl (0.2-1.0); Calcium 8.7 mg/dl (8.6-10.3); Creatinine Clr Calc Pharmacy 50.7 ml/min; Globulin 4.7 gm/dl (2.5-4.0); Magnesium 2.1 mg/dl (1.7-2.4); Potassium 4.3 mmol/L (3.5-5.1); Total Protein 7.5 gm/dl (6.0-8.3)
[2024-12-12 06:29] LABS: Troponin I High Sensitivity 108.5 pg/ml (0-14)
[2024-12-12 06:30] LABS: INR 1.4 (0.9-1.1); Prothrombin Time 14.7 Seconds (9.0-12.0)
[2024-12-12] MEDS: MoRPHine SULFATE 2 MG/ML CARP IV STA (06:30)
[2024-12-12 06:38] LABS: White Blood Count 31.15 K/ul (4.8-10.8)
[2024-12-12 06:40] LABS: Basophils # (auto) 0.15 K/uL (0.00-0.20); Basophils % (auto) 0.5 %; Eosinophils # (auto) 0.03 K/uL (0.00-0.50); Eosinophils % (auto) 0.1 %; Hematocrit (blood only) 33.1 % (37.0-47.0); Hemoglobin 10.6 g/dl (12.0-16.0); Immature Granulocytes # (auto) 1.15 K/uL (0.01-0.20); Immature Granulocytes % (auto) 3.7 %; Lymphocytes # (auto) 3.56 K/uL (1.20-3.40); Lymphocytes % (auto) 11.4 %; Mean Corpuscular Hemoglobin 27.3 pg (25.0-34.0); Mean Corpuscular Volume 85.3 fL (80.0-100.0); Monocytes # (auto) 3.67 K/uL (0.11-0.59); Monocytes % (auto) 11.8 %; Neutrophils # (auto) 22.59 K/uL (1.40-6.50); Neutrophils % (auto) 72.5 %; Platelet Count 637 K/uL (130-400); Polychromasia 1+; RDW Coefficient of Variation 16.4 % (11.5-14.5); Red Blood Count 3.88 M/uL (4.20-5.40)
[2024-12-12 06:46] LABS: Base Excess VBG -6.4 mEq/L; HCO3 VBG 22 mmol/L; Oxygen Saturation VBG 67.4 %; PCO2 VBG 57 mmHg (38-50); PO2 VBG 47 mmHg
[2024-12-12] MEDS: dilTIAZem HCl 5 MG/ML 5 ML VIAL IV STA (06:54)
[2024-12-12] MEDS: dilTIAZem HCl 5 MG/ML 5 ML VIAL IV ONE (06:55)
--- NOTE | 2024-12-12 07:11 | Communication Note ---
Date of Service: December 12, 2024 Purple code called around 6:45 due to tachypnea. On arrival, patient was on high flow, saturating at 95%. BP 134/107. Lungs with bilateral crackles. Diltiazem 10 mg. LAsix 40 mg IV. Critical WBC 31. IV Zosyn and Daptomycin. Troponin 105. Labs added: blood culture, urine culture, random cortisol, MRSA swab added. Will repeat troponin in 2 hours.
[2024-12-12] MEDS: PIPERACILLIN/TAZOBACTAM 4.5 GM/100 ML BAG IV ONE (08:00)
[2024-12-12] MEDS: DAPTOmycin 350 MG in SYRINGE 0 ML IV SCH (08:00)
--- NOTE | 2024-12-12 08:07 | XRay Report ---
EXAM: XR chest 1V portable CLINICAL HISTORY: Shortness of breath TECHNIQUE: An X-ray image of the chest is obtained in AP projection. 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 progression of bilateral costophrenic angles obliteration suggesting progressing pleural effusion Heart and Mediastinum: Cardiomegaly No mediastinal widening or masses. No hilar or mediastinal lymphadenopathy. Bony Thorax: Bony thorax appears intact without fractures or deformities. Soft Tissues: Soft tissues overlying the chest wall are unremarkable. Line: Left central venous catheter in place with tip in SVC IMPRESSION: 1. Progression of bilateral inhomogeneous patchy airspace opacification/consolidations, more marked in lower zones. 2. Progression of bilateral pleural effusion 3. Left central venous catheter in place with tip in SVC (stable) Electronically signed by Mine Wallace 12-12-2024 08:07 AM
[2024-12-12 08:49] LABS: Blood Urine 1+ (Negative)
--- NOTE | 2024-12-12 09:01 | Hospitalist Progress Note ---
Date of Service December 12, 2024 Assessment & Plan (1) Acute respiratory failure with hypoxia and hypercapnia: Plan: CXR x 2 overnight with diffuse b/l infiltrates differential - TRALI vs transfusion-associated volume overload vs NSTEMI leading to cardiogenic pulmonary edema vs infectious process vs other favor TRALI - the time course fits with her marked decline overnight (symptoms/signs started about 4 hours post-transfusion) thus far has had poor UOP in response to lasix 40mg IV x 2 doses which argues against cardiogenic pulmonary edema -- but still can't rule out such at this time just had echo yesterday afternoon showing EF of 50-55% with normal IVF and normal RV function unfortunately she could not tolerate multiple attempts at BIPAP and our masks did not provide adequate seal thus continue HFNC for now acute PE is possible in light of lymphoma but this would not cause the CXR findings that we are seeing plan - * send transfusion reaction panel to blood bank * follow response, if any, to the 2 doses of lasix * cont HFNC * repeat VBG this am * consider CTA chest to r/o PE, but again the diffuse b/l infiltrates explain her respiratory failure * will ask Dr Mello to see in consult for his opinion regarding her acute respiratory events * if this is an infectious process (which would be unusual given the time course) she has been started on zosyn and daptomycin; unfortunately the latter does not provide lung penetration (inactivated by surfactant); will check MRSA swab and if negative will simply stop MRSA coverage * previous biofire respiratory panel was negative but consider repeat COVID/flu/RSV * with her chronic cellcept she is at risk of various atypical infections but defer on anti-fungal therapy, etc as time course of her acute worsening does not fit with an infectious process (2) Hyponatremia: Plan: Na level 126 upon admission 12/11 -- 134 this am -- 131 urine osm was low urine Na was borderline low NOT c/w SIADH TSH wnl cortisol level acceptable NaCl tabs (ordered upon admission) were stopped yesterday am trend the sodium level in the face of #1 and attempts at diuresis (3) Hypomagnesemia: Plan: replaced resolved (4) Fever with leukocytosis and leukocyte count less than 20,000: Plan: present on admission -- u/a negative admit cxr negative resp BioFire negative admit blood cx's negative lyme negative fever 2nd to her lymphoma? overnight - profound respiratory failure as noted in #1 above WBC count now very high at 31,000 repeat blood cultures sent zosyn/daptomycin started see discussion in #1 above check MRSA swab recheck COVID/flu/RSV in the event these were falsely negative at time of admission (5) Transaminitis: Plan: improving etiology? reactive? other? cont to hold statin repeat LFTs am (6) GI bleed: Plan: prior h/o GAVE active GI bleed suspected at time of admission due to dark/melena stools seen at home recently GI consulted; they were planning EGD today but this will be deferred in light of #1 above cont PPI bid IV s/p 1 unit PRBCs for Hb of 7 yesterday pm H/H acceptable today of note - pt has received 4 units PRBCs over the past 2 weeks (managed by Dr Plummer) (7) Lymphoma: Plan: recent diagnosis of such follows with Dr Logan Plummer - [facility] oncology was to start chemotherapy this week (8) Elevated troponin: Plan: present on admission thought 2nd to myocardial demand ischemia in setting of anemia, sinus tachycardia, fever, etc. troponin worse today but still not c/w ACS trend until the peak echo from 12/11 -- EF 50-55%, normal LV wall motion (9) CREST (calcinosis, Raynaud's phenomenon, esophageal dysfunction, sclerodactyly, telangiectasia): Plan: and baseline ILD typically on cellcept BID for such I corresponded with Dr Plummer from heme/onc 12/11 - he prefers cellcept is held for now in light of fevers, new dx of lymphoma, etc. (10) Tachycardia: Plan: thus far sinus tach only no SVT, a.fib, a.flutter, etc. last pm she became even more tachycardic to the 160s - EKG showed "SVT" but there are P waves present thus sinus tach still favored TSH wnl anemia, chronic ILD, fever, SIRS, #1 above, etc -- all could be contributing echo with preserved EF 50-55% consider w/u for PE with CTA chest (11) ILD (interstitial lung disease): Plan: known diagnosis now with severe acute hypoxic/hypercapnic resp failure as in #1 above pulmonary consult requested with Dr Mello (12) TRALI (transfusion related acute lung injury): Plan: question of see #1 above transfusion reaction protocol dispatched I discussed her case w/ the blood bank Plan Chronic stable diagnoses: HLD - hold statin due to elevated LFTs neuropathy - continue gabapentin but lower the dose if any worsening mental status or worsening renal status hypothyroidism - continue levothyroxine; TSH wnl HTN - hold valsartan Elevated INR - liver dysfunction in the setting of #1? other? trend the INR thrombocytosis - suspect reactive to #1? trend updated at bedside this morning care d/w Dr Mello, pulmonary/critical care very complex care coordination Admission and Anticipated Discharge Date Admission Date: December 10, 2024 Subjective events of overnight reviewed in detail PRBCs were infused late in the evening (unclear why blood was delayed) finished infusing sometime between 11 and 12 midnight about 0400 patient reports getting up to go to the bathroom she had "weakness" and "shortness of breath" - which is similar to what she experiences at home with activity - but this was much worse than usual on telemetry she has baseline sinus tach (100-120 or so) but about 0415 her HR sped up to 160s EKG obtained - ?SVT vs sinus tach remained with HR>150 until ~450 and her rates gradually came back down to the 120s per notes she was given IV diltiazem and IV metoprolol along with morphine IV for the tachycardia & dyspnea during this time period a code purple was called attempts were made to place the patient on BIPAP cxr obtained - diffuse infiltrates b/l lasix 40mg IV x 1 was given with marginal output she never had chest pain patient was switched from BIPAP to HFNC as respiratory could not find a mask that she could tolerate (they tried multiple masks) on HFNC she is requiring 100% FiO2 and 50 L a 2nd dose of lasix 40mg x 1 was given shortly after 7am again UOP has been suboptimal despite the 2 doses of lasix about 745am this morning I went to bedside pt's was present patient amazingly said "I feel fine" denied any chest pain denied dyspnea at rest just feels tired no fevers patient reports that following her blood transfusion she had NO dyspnea and had NO o2 requirement she had gone to sleep after the blood and slept fine until the events at 0400 echo done yesterday - EF 50-55%, normal RV function, IVC wnl Review of Systems Review of Systems: gen - no fevers or chills cv - no chest pain, no palpitations pulm - had NO pulmonary symptoms until she abruptly had dyspnea at ~0400 this am GI - no abd pain or n/v Physical Exam Physical Exam: gen - looks tired, mild tachypnea noted, HFNC in place, able to speak in full sentences, awake/alert skin - pallor improved neck - no JVD mouth - MMM; no thrush heart - tachy, s1 s2, no murmur lungs - diffuse rales extending from bases nearly all the way up back, no w heezes, mild tachypnea, no retractions abd - soft NT ND BS+ ext - no edema, pulses 2+ b/l but feet are cool to touch psych - a/o x 3 Results & Data Results & Data Vital Signs (Past 12 Hours) Vital Signs Temp Pulse Pulse Pulse Resp BP BP 12/12/24 07:26 125 H 37 H 120/90 12/12/24 07:05 121 H 12/12/24 06:14 124 H 114/83 12/12/24 06:05 12/12/24 05:55 50 H 12/12/24 05:55 144 H 145/101 H 12/12/24 05:09 127 H 12/12/24 05:09 129 H 40 H 12/12/24 05:05 12/12/24 05:05 127 H 140/100 12/12/24 04:50 170 H 215/96 H 12/12/24 02:01 36.5 C 105 H 16 109/50 L 12/11/24 23:52 36.4 C L 96 H 16 108/65 12/11/24 23:00 91 H 12/11/24 22:52 36.4 C L 114 H 16 123/74 12/11/24 21:52 36.4 C L 102 H 18 105/66 12/11/24 21:22 36.5 C 105 H 16 108/65 12/11/24 21:07 36.8 C 104 H 16 103/68 Pulse Ox Pulse Ox O2 Del Method O2 Del Method O2 Flow Rate O2 Flow Rate FiO2 12/12/24 07:26 93 High Flow Nasal Cannula 50 100 12/12/24 07:05 12/12/24 06:14 12/12/24 06:05 96 BiPAP 100 12/12/24 05:55 12/12/24 05:55 12/12/24 05:09 12/12/24 05:09 97 100 12/12/24 05:05 BiPAP 100 12/12/24 05:05 12/12/24 04:50 12/12/24 02:01 92 Room Air 12/11/24 23:52 95 12/11/24 23:00 12/11/24 22:52 97 12/11/24 21:52 96 12/11/24 21:22 98 12/11/24 21:07 96 Laboratory Results Laboratory Results - last 24 hr 12/10/24 12/12/24 12/12/24 20:32 05:32 06:32 WBC 31.15 H* D RBC 3.88 L Hgb 10.6 L D Hct 33.1 L MCV 85.3 MCH 27.3 MCHC 32.0 RDW Std Deviation 51.0 H RDW Coeff of Colette 16.4 H Plt Count 637 H D MPV 9.0 L Immature Gran % (Auto) 3.7 Neut % (Auto) 72.5 Lymph % (Auto) 11.4 [place] % (Auto) 11.8 Eos % (Auto) 0.1 Baso % (Auto) 0.5 Neut # (Auto) 22.59 H Lymph # (Auto) 3.56 H [place] # (Auto) 3.67 H Eos # (Auto) 0.03 Baso # (Auto) 0.15 Immature Gran # (Auto) 1.15 H Polychromasia 1+ PT 14.7 H INR 1.4 H VBG pH Cancelled 7.20 L VBG pCO2 Cancelled 57 H VBG pO2 Cancelled 47 VBG HCO3 Cancelled 22 VBG O2 Saturation Cancelled 67.4 VBG Base Excess Cancelled -6.4 Barometric Pressure Cancelled Sodium 131 L Potassium 4.3 Chloride 100 Carbon Dioxide 20 L Anion Gap 11 BUN 11 Creatinine 0.89 D Est Cr Clr Drug Dosing 50.7 eGFR 68.41 BUN/Creatinine Ratio 12.4 Glucose 205 H Calcium 8.7 Magnesium 2.1 Total Bilirubin 0.5 AST 67 H ALT 58 H Alkaline Phosphatase 90 Troponin I High Sens 108.5 H* D B-Natriuretic Peptide 935 H Total Protein 7.5 D Albumin 2.8 L Globulin 4.7 H Albumin/Globulin Ratio 0.6 L Random Cortisol 33.22 Urine Blood Urine RBC (Auto) Blood Type O Positive Antibody Screen NEGATIVE Crossmatch See Detail Transfusion React Date Transfusion React Time Tx React Symptoms Reaction Clerical Check Lab Clerical Err Check React Component Return Volume Returned Pre-Trans Blood Type Pre-Trans Vis Hemolysis Pre-Trans IAIN Pre-Trans IAIN IgG Pre-Trans IAIN Poly Pre-Trans IAIN C3b, C3d Post-Trans Blood Type Post-Tx Visible Hemolys Post-Trans IAIN Post-Trans IAIN IgG Post-Trans IAIN Poly Post-Trans IAIN C3b, C3d Post-Trans Ur Hemoglobin Reaction Path Interpret Transfusion Serv Com 12/12/24 12/12/24 12/12/24 06:50 07:32 08:47 WBC RBC Hgb Hct MCV MCH MCHC RDW Std Deviation RDW Coeff of Colette Plt Count MPV Immature Gran % (Auto) Neut % (Auto) Lymph % (Auto) [place] % (Auto) Eos % (Auto) Baso % (Auto) Neut # (Auto) Lymph # (Auto) [place] # (Auto) Eos # (Auto) Baso # (Auto) Immature Gran # (Auto) Polychromasia PT INR VBG pH VBG pCO2 VBG pO2 VBG HCO3 VBG O2 Saturation VBG Base Excess Barometric Pressure Sodium Potassium Chloride Carbon Dioxide Anion Gap BUN Creatinine Est Cr Clr Drug Dosing eGFR BUN/Creatinine Ratio Glucose Calcium Magnesium Total Bilirubin AST ALT Alkaline Phosphatase Troponin I High Sens 160.7 H* D 195.4 H* D B-Natriuretic Peptide Total Protein Albumin Globulin Albumin/Globulin Ratio Random Cortisol Urine Blood 1+ H Urine RBC (Auto) 6-10 H Blood Type Antibody Screen Crossmatch Transfusion React Date Pending Transfusion React Time Pending Tx React Symptoms Pending Reaction Clerical Check Pending Lab Clerical Err Check Pending React Component Return Pending Volume Returned Pending Pre-Trans Blood Type Pending Pre-Trans Vis Hemolysis Pending Pre-Trans IAIN Pending Pre-Trans IAIN IgG Pending Pre-Trans IAIN Poly Pending Pre-Trans IAIN C3b, C3d Pending Post-Trans Blood Type Pending Post-Tx Visible Hemolys Pending Post-Trans IAIN Pending Post-Trans IAIN IgG Pending Post-Trans IAIN Poly Pending Post-Trans IAIN C3b, C3d Pending Post-Trans Ur Hemoglobin Pending Reaction Path Interpret Pending Transfusion Serv Com Pending Diagnostic Findings Chest X-Ray 12/12/24 04:36 EXAM: XR chest 1V portable CLINICAL HISTORY: Shortness of breath TECHNIQUE: An X-ray image of the chest is obtained in AP projection. COMPARISON: 12/10/2024 FINDINGS: Pulmonary Parenchyma: Interval significant progression of bilateral inhomogeneous patchy airspace opacification/consolidations, more marked in lower zones. Costophrenic angles are obscured, small pleural effusion cannot be ruled out. Heart and Mediastinum: Heart size and shape are normal. No mediastinal widening or masses. No hilar or mediastinal lymphadenopathy. Bony Thorax: Bony thorax appears intact without fractures or deformities. Soft Tissues: Soft tissues overlying the chest wall are unremarkable. Line: Left approach central venous catheter in place with tip in SVC IMPRESSION: 1. Interval significant progression of bilateral inhomogeneous patchy airspace opacification/consolidations, more marked in lower zones. 2. Costophrenic angles are obscured, small pleural effusion cannot be ruled out. 3. Left approach central venous catheter in place with tip in SVC. Electronically signed by Mine Wallace 12-12-2024 06:00 AM Chest X-Ray 12/12/24 06:47 EXAM: XR chest 1V portable CLINICAL HISTORY: Shortness of breath TECHNIQUE: An X-ray image of the chest is obtained in AP projection. 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 progression of bilateral costophrenic angles obliteration suggesting progressing pleural effusion Heart and Mediastinum: Cardiomegaly No mediastinal widening or masses. No hilar or mediastinal lymphadenopathy. Bony Thorax: Bony thorax appears intact without fractures or deformities. Soft Tissues: Soft tissues overlying the chest wall are unremarkable. Line: Left central venous catheter in place with tip in SVC IMPRESSION: 1. Progression of bilateral inhomogeneous patchy airspace opacification/consolidations, more marked in lower zones. 2. Progression of bilateral pleural effusion 3. Left central venous catheter in place with tip in SVC (stable) Electronically signed by Mine Wallace 12-12-2024 08:07 AM PG Care Time/CCT Total # of Minutes Spent Total Time Spent with Patient: Total time spent is greater than 50% in coordination of care (as documented) at patient's floor/unit and/or counseling patient: Coding Level of Care Code 28603 SUB INP/OBS CARE 3/50MIN Diagnoses Acute respiratory failure with hypoxia and hypercapnia J96.01; J96.02 Hyponatremia E87.1 Hypomagnesemia E83.42 Fever with leukocytosis and leukocyte count less than 20,000 D72.829 Transaminitis R74.01 GI bleed K92.2 Lymphoma C85.90 Elevated troponin R79.89 CREST (calcinosis, Raynaud's phenomenon, esophageal dysfunction, sclerodactyly, telangiectasia) M34.1 Tachycardia R00.0 ILD (interstitial lung disease) J84.9 TRALI (transfusion related acute lung injury) J95.84
--- NOTE | 2024-12-12 09:38 | Electrocardiogram Report ---
Test Reason : Blood Pressure : */* mmHG Vent. Rate : 128 BPM Atrial Rate : 128 BPM P-R Int : 150 ms QRS Dur : 100 ms QT Int : 312 ms P-R-T Axes : 54 -10 81 degrees QTcB Int : 455 ms Sinus tachycardia Poor R wave progression, consider anterior OH vs. lead placement vs. LVH Abnormal ECG When compared with ECG of 10-Dec-2024 16:22, No significant change was found Confirmed by Adelfo Pugh ([id number]) on 12/12/2024 9:38:18 AM Referred By: REFERRED SELF Confirmed By: Adelfo Pugh
--- NOTE | 2024-12-12 09:41 | Electrocardiogram Report ---
Test Reason : Blood Pressure : */* mmHG Vent. Rate : 160 BPM Atrial Rate : 159 BPM P-R Int : * ms QRS Dur : 102 ms QT Int : 268 ms P-R-T Axes : * -13 75 degrees QTcB Int : 437 ms Poor data quality, interpretation may be adversely affected Sinus tachycardia Poor R wave progression, consider anterior DC vs. lead placement vs. LVH Abnormal ECG When compared with ECG of 11-Dec-2024 18:53, (unconfirmed) No significant change was found Confirmed by Adelfo Pugh ([id number]) on 12/12/2024 9:41:04 AM Referred By: REFERRED SELF Confirmed By: Adelfo Pugh
--- NOTE | 2024-12-12 10:08 | Gastroenterology Progress Note ---
Date of Service December 12, 2024 Assessment & Plan (1) Acute respiratory failure with hypoxia and hypercapnia: Plan: 74 year old female w/ history of crest syndrome, ILD, hypothyroidism, GERD, recently diagnosed mesenteric lymphoma supposed to start chemotherapy today admitted w/ abnormal labs. GI was planning endoscopic evaluation given CARINA. However, overnight developed acute respiratory failure with hypoxia and hypercapnia concern for TRALI. As she has not had a BM since admission and HGB has remained stable since transfusion, will cancel EGD this AM. Of course, if this was urgently indicated we are happy to arrange. However, recommend medical optimization prior to elective endoscopic evaluation. Please recall GI as needed. Thank you for allowing us to participate in the care of this patient. Please call with any acute changes, questions or concerns. Please see addendum below with additional recommendation from my supervising physician. I spent a total of 40 minutes on the date of service in review of patient's record, and previously obtained information in person and appropriate medical visit, discussion and education of plan, with patient and/or caregiver, placing orders for tests/referral/procedures as medically necessary and document ation of pertinent clinical information in patient's medical records for their visit today. Admission and Anticipated Discharge Date Admission Date: December 10, 2024 Supervising Physician Co-Signing Physician Notes I personally saw and examined the patient. I have reviewed the chart and agree with the documentation provided by the FINANCIAL REP including discussion about the assessment, treatment and plan. 74 year old female w/ history of crest syndrome, ILD, hypothyroidism, GERD, recently diagnosed mesenteric lymphoma supposed to start chemotherapy today admitted w/ abnormal labs. GI was planning endoscopic evaluation given CARINA. However, overnight developed acute respiratory failure with hypoxia and hypercapnia concern for TRALI vs fluid overload. Still on FiO2 50% high flow but sats are improved. She can get a clear liquid diet at this point. We will cancel the EGD given her respiratory decompensation and brown stool. GI will follow to make sure she is not getting more anemic but this workup can be done outpatient as well Subjective Pt was seen and evaluated, chart reviewed. Was NPO in anticipation of EGD this AM. Events overnight reviewed - acute respiratory failure with hypoxia and hypercapnia, ?TRALI. Significant leukocytosis this AM. Intermittent fevers. Respiratory PCR negative on arrival. Family at bedside, updated that EGD would be post-poned in light of ongoing pulmonary workup. Review of Systems Review of Systems: All other findings negative except as noted in HPI. Physical Exam Constitutional: Pt appears ill, sitting in bed wearing O2 Respiratory: + tachypnea Cardiovascular: + tachycardia Gastrointestinal (Abdomen): Percussion/Palpation: abdomen soft; abdomen nontender Skin: no rashes, warm and dry Results & Data Results & Data Vital Signs (Past 12 Hours) Vital Signs Temp Pulse Pulse Pulse Resp BP BP 12/12/24 07:26 125 H 37 H 120/90 12/12/24 07:05 121 H 12/12/24 06:14 124 H 114/83 12/12/24 06:05 12/12/24 05:55 50 H 12/12/24 05:55 144 H 145/101 H 12/12/24 05:09 127 H 12/12/24 05:09 129 H 40 H 12/12/24 05:05 12/12/24 05:05 127 H 140/100 12/12/24 04:50 170 H 215/96 H 12/12/24 02:01 97.7 F 105 H 16 109/50 L 12/11/24 23:52 97.5 F L 96 H 16 108/65 12/11/24 23:00 91 H 12/11/24 22:52 97.5 F L 114 H 16 123/74 Pulse Ox Pulse Ox O2 Del Method O2 Del Method O2 Flow Rate O2 Flow Rate FiO2 12/12/24 07:26 93 High Flow Nasal Cannula 50 100 12/12/24 07:05 12/12/24 06:14 12/12/24 06:05 96 BiPAP 100 12/12/24 05:55 12/12/24 05:55 12/12/24 05:09 12/12/24 05:09 97 100 12/12/24 05:05 BiPAP 100 12/12/24 05:05 12/12/24 04:50 12/12/24 02:01 92 Room Air 12/11/24 23:52 95 12/11/24 23:00 12/11/24 22:52 97 Laboratory Results 12/12/24 12/12/24 12/12/24 Range/Units 08:47 07:32 06:50 WBC (4.8-10.8) K/ul RBC (4.20-5.40) M/uL Hgb (12.0-16.0) g/dl Hct (37.0-47.0) % MCV (80.0-100.0) fL MCH (25.0-34.0) pg MCHC (32.0-36.0) g/dL RDW Std Deviation (36.4-46.3) fL RDW Coeff of Colette (11.5-14.5) % Plt Count (130-400) K/uL MPV (9.4-12.4) fL Immature Gran % (Auto) % Neut % (Auto) % Lymph % (Auto) % [place] % (Auto) % Eos % (Auto) % Baso % (Auto) % Neut # (Auto) (1.40-6.50) K/uL Lymph # (Auto) (1.20-3.40) K/uL [place] # (Auto) (0.11-0.59) K/uL Eos # (Auto) (0.00-0.50) K/uL Baso # (Auto) (0.00-0.20) K/uL Immature Gran # (Auto) (0.01-0.20) K/uL Polychromasia PT (9.0-12.0) Seconds INR (0.9-1.1) VBG pH VBG pCO2 VBG pO2 VBG HCO3 VBG O2 Saturation VBG Base Excess Barometric Pressure Sodium (136-145) mmol/L Potassium (3.5-5.1) mmol/L Chloride (98-107) mmol/L Carbon Dioxide (21-32) mmol/L Anion Gap (3-11) BUN (6-23) mg/dl Creatinine (0.6-1.2) mg/dl Est Cr Clr Drug Dosing ml/min eGFR BUN/Creatinine Ratio (10-20) Glucose (70-99(Fasting)) mg/dl Calcium (8.6-10.3) mg/dl Magnesium (1.7-2.4) mg/dl Total Bilirubin (0.2-1.0) mg/dl AST (13-39) U/L ALT (7-52) U/L Alkaline Phosphatase (34-104) U/L Troponin I High Sens 195.4 H* D 160.7 H* D (0-14) pg/ml B-Natriuretic Peptide (0-100) pg/ml Total Protein (6.0-8.3) gm/dl Albumin (3.4-5.0) gm/dl Globulin (2.5-4.0) gm/dl Albumin/Globulin Ratio (0.9-2) Random Cortisol mcg/dl Urine Blood 1+ H (Negative) Urine RBC (Auto) 6-10 H (0-2) /hpf Blood Type Antibody Screen Crossmatch Transfusion React Date Pending Transfusion React Time Pending Tx React Symptoms Pending Reaction Clerical Check Pending Lab Clerical Err Check Pending React Component Return Pending Volume Returned Pending Pre-Trans Blood Type Pending Pre-Trans Vis Hemolysis Pending Pre-Trans IAIN Pending Pre-Trans IAIN IgG Pending Pre-Trans IAIN Poly Pending Pre-Trans IAIN C3b, C3d Pending Post-Trans Blood Type Pending Post-Tx Visible Hemolys Pending Post-Trans IAIN Pending Post-Trans IAIN IgG Pending Post-Trans IAIN Poly Pending Post-Trans IAIN C3b, C3d Pending Post-Trans Ur Hemoglobin Pending Reaction Path Interpret Pending Transfusion Serv Com Pending 12/12/24 12/12/24 12/10/24 Range/Units 06:32 05:32 20:32 WBC 31.15 H* D (4.8-10.8) K/ul RBC 3.88 L (4.20-5.40) M/uL Hgb 10.6 L D (12.0-16.0) g/dl Hct 33.1 L (37.0-47.0) % MCV 85.3 (80.0-100.0) fL MCH 27.3 (25.0-34.0) pg MCHC 32.0 (32.0-36.0) g/dL RDW Std Deviation 51.0 H (36.4-46.3) fL RDW Coeff of Colette 16.4 H (11.5-14.5) % Plt Count 637 H D (130-400) K/uL MPV 9.0 L (9.4-12.4) fL Immature Gran % (Auto) 3.7 % Neut % (Auto) 72.5 % Lymph % (Auto) 11.4 % [place] % (Auto) 11.8 % Eos % (Auto) 0.1 % Baso % (Auto) 0.5 % Neut # (Auto) 22.59 H (1.40-6.50) K/uL Lymph # (Auto) 3.56 H (1.20-3.40) K/uL [place] # (Auto) 3.67 H (0.11-0.59) K/uL Eos # (Auto) 0.03 (0.00-0.50) K/uL Baso # (Auto) 0.15 (0.00-0.20) K/uL Immature Gran # (Auto) 1.15 H (0.01-0.20) K/uL Polychromasia 1+ PT 14.7 H (9.0-12.0) Seconds INR 1.4 H (0.9-1.1) VBG pH 7.20 L Cancelled VBG pCO2 57 H Cancelled VBG pO2 47 Cancelled VBG HCO3 22 Cancelled VBG O2 Saturation 67.4 Cancelled VBG Base Excess -6.4 Cancelled Barometric Pressure Cancelled Sodium 131 L (136-145) mmol/L Potassium 4.3 (3.5-5.1) mmol/L Chloride 100 (98-107) mmol/L Carbon Dioxide 20 L (21-32) mmol/L Anion Gap 11 (3-11) BUN 11 (6-23) mg/dl Creatinine 0.89 D (0.6-1.2) mg/dl Est Cr Clr Drug Dosing 50.7 ml/min eGFR 68.41 BUN/Creatinine Ratio 12.4 (10-20) Glucose 205 H (70-99(Fasting)) mg/dl Calcium 8.7 (8.6-10.3) mg/dl Magnesium 2.1 (1.7-2.4) mg/dl Total Bilirubin 0.5 (0.2-1.0) mg/dl AST 67 H (13-39) U/L ALT 58 H (7-52) U/L Alkaline Phosphatase 90 (34-104) U/L Troponin I High Sens 108.5 H* D (0-14) pg/ml B-Natriuretic Peptide 935 H (0-100) pg/ml Total Protein 7.5 D (6.0-8.3) gm/dl Albumin 2.8 L (3.4-5.0) gm/dl Globulin 4.7 H (2.5-4.0) gm/dl Albumin/Globulin Ratio 0.6 L (0.9-2) Random Cortisol 33.22 mcg/dl Urine Blood (Negative) Urine RBC (Auto) (0-2) /hpf Blood Type O Positive Antibody Screen NEGATIVE Crossmatch See Detail Transfusion React Date Transfusion React Time Tx React Symptoms Reaction Clerical Check Lab Clerical Err Check React Component Return Volume Returned Pre-Trans Blood Type Pre-Trans Vis Hemolysis Pre-Trans IAIN Pre-Trans IAIN IgG Pre-Trans IAIN Poly Pre-Trans IAIN C3b, C3d Post-Trans Blood Type Post-Tx Visible Hemolys Post-Trans IAIN Post-Trans IAIN IgG Post-Trans IAIN Poly Post-Trans IAIN C3b, C3d Post-Trans Ur Hemoglobin Reaction Path Interpret Transfusion Serv Com PG Care Time/CCT Total # of Minutes Spent Total Time Spent with Patient: Total time spent is greater than 50% in coordination of care (as documented) at patient's floor/unit and/or counseling patient: Coding Level of Care Code 57157 SUB INP/OBS CARE 2/35MIN Diagnoses Acute respiratory failure with hypoxia and hypercapnia J96.01; J96.02
--- NOTE | 2024-12-12 10:09 | Pulmonary Consultation ---
Date of Consultation December 12, 2024 Assessment & Plan (1) TACO (transfusion associated circulatory overload): (2) Acute respiratory failure with hypoxia and hypercapnia: (3) Lymphoma: Lymphoma type: unspecified type (4) Systemic sclerosis: (5) ILD (interstitial lung disease): (6) Multiple pulmonary nodules: (7) LAD (lymphadenopathy), mediastinal: Plan 2D echo 12/11/2024: EF 50-55%, mild concentric LVH, mild MR -- Acute hypoxic respiratory failure Likely secondary to fluid overload, the probability of trolley is low. BNP being elevated goes against Trelegy, she is febrile low grade but she has always been febrile and I think it is because of her underlying lymphoma Respiratory BioFire negative for everything on 12/10/2024 BNP 935 O2 supplementation to keep oxygen saturation between 90-92% 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, on mycophenolate Subcarinal lymphadenopathy is likely from the history of lymphoma Rheumatoid factor and anti-CCP were negative Patient finished pulmonary rehab HRCT does show predominant right-sided fibrosis with early honeycombing, 2D echo shows normal right-sided pressures with mildly reduced RV function Latest PFT shows no significant change compared to the one in July 2023 Repeat echo on yearly basis, PFT and 6-minute walk test every 6 months We will consider repeating HRCT in future if there is any worsening in PFT Antifibrinolytic's like Ofev or Esbriet can also be thought off in future if there is significant decrease in DLCO or TLC with or without worsening on the CAT scan imaging HRCT 12/24/2022 personally reviewed: Bilateral apical pleural scarring, more prominent on the right side Mosaicism appreciated bilaterally Increased reticular markings in the periphery of the right lower lobe with right-sided volume loss and elevated right hemidiaphragm Significant mediastinal lymphadenopathy especially station 7 PFT 02/15/2024 personally reviewed: No obstructive lung dysfunction, insignificant bronchodilator response, normal TLC, normal DLCO (No significant change in FVC or FEV1, decrease in DLCO 86--> 75%, increase in weight by 10 pounds compared to 07/06) FVC 2.26 L 75%, FEV1 1.80 L 79%, FEV1/FVC 79%, ERV 49%, RV 102%, TLC 89%, RV/DLCO 114%, DLCO 75% 2D echo personally reviewed: EF 50%, mild concentric LVH, grade 1 diastolic dysfunction, RV normal in size with mildly reduced RV systolic function, RVSP normal --Multiple pulmonary nodules Less than 4 mm Patient quit smoking in 1997 --Ex-smoker [id number] smoking history Quit in 1997 Encouraged to continue abstinence from smoking -- 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 Following up with rheumatology --History of breast cancer 1987 status postchemotherapy as well as radiation -- History of lymphoma with recent relapse of mesenteric lymphoma Status postchemotherapy Subcarinal lymphadenopathy is likely because of that -- 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 She has gotten total of approximately 5 units of blood in the last 2 weeks. Patient has started to make urine and there has been improvement in patient's oxygenation. Continue with diuretics. I do think she is going to benefit from BiPAP but unfortunately she is not able to tolerate the mask. Will try to see if she can tolerate nasal pillows with CPAP of 5 and gradually increase it to 8 if possible. Case was discussed with primary team as well as RN at bedside Please note the above document was generated using voice recognition software. It may contain grammatical, syntax or spelling errors.Any formal questions or concerns about the content, text or information contained within the body of this dictation should be directly addressed to the provider for clarification. History of Present Illness Attending Physician: Ricky Chavez MD History of Present Illness 74-year-old female following with pulmonary for autoimmune related ILD presented to the hospital with Past medical history: GERD, hypothyroidism, crest syndrome, right-sided breast cancer 1987 s/p chemo and radiation, lymphoma 2013 status postchemotherapy Patient was last seen by me on 02/15/2024 In the interim patient was admitted to the hospital because of anemia She got 1 unit of blood on 12/11/2024, she has gotten a total of 4 units of PRBC in the last 2 weeks prior to the 1 unit yesterday Patient's was also in the room. She was saturating 100% on 50 L high flow, 90% FiO2. I was able to gradually bring it down to 40 L and 50% FiO2 and she was still saturating 91-92%. She denied any chest pain Occasional cough with clear phlegm. Denies any difficulty bringing up the phlegm. No hemoptysis No dysuria, no diarrhea Does have subjective fever which has been going on for a while. No nausea or vomiting No family history of autoimmune disease like lupus, sarcoid, Sjogren's, rheumatoid. Denies any dry eyes or dry mouth. No difficulty swallowing. Patient does have Raynaud's phenomena Social history: [id number] smoking history quit in 1997, no alcohol use. Denies any illicit drug use. 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 Pets: Used to have a dog. No birds or poultry nearby. Patient did grew up on a farm and currently stays on a farm Allergies: Denies Asthma: No personal or family history of asthma Lung cancer: No history of lung cancer in the family Allergies Allergy/AdvReac Type Severity Reaction Status Date / Time nickel AdvReac Severe RASH- Verified 12/06/24 10:48 HANDS AND OTHER AREAS BREAK OUT Home Medications Medication Instructions Recorded Confirmed Type calcium carbonate 600 mg PO QAM 01/06/20 12/10/24 History cyanocobalamin (vitamin B-12) 1,000 mcg PO .tuesday12/22/22 12/10/24 History 1,000 mcg tablet albuterol sulfate 90 mcg/actuation 2 puff inhalation Q6H PRN 12/30/22 12/10/24 Rx aerosol inhaler Shortness Of Breath Or Wheezing #18 grams desoximetasone 0.25 % topical 1 applic topical DAILY #60 grams 09/19/23 12/10/24 Rx ointment baclofen 10 mg tablet See Rx Instructions PO .COMPLEX 07/20/24 12/10/24 Rx #270 tabs ascorbic acid (vitamin C) 1,000 mg 1 g PO QAM 08/08/24 12/10/24 History tablet (Vitamin C) cholecalciferol (vitamin D3) 25 25 mcg PO QAM 08/08/24 12/10/24 History mcg (1,000 unit) tablet (Vitamin D3) gabapentin 800 mg tablet 800 mg PO UD 08/08/24 12/10/24 History levothyroxine 25 mcg tablet 25 mcg PO DAILYBB 08/08/24 12/10/24 History mycophenolate mofetil 500 mg 1,000 mg PO .ON HOLD 08/08/24 12/10/24 History tablet (CellCept) omega-3 fatty acids 500 mg capsule 500 mg PO QAM 08/08/24 12/10/24 History rosuvastatin 10 mg tablet 10 mg PO HS 08/08/24 12/10/24 History valsartan 80 mg tablet 80 mg PO QAM 08/08/24 12/10/24 History Oxygen Home #1 ea 09/18/24 12/06/24 Rx allopurinol 300 mg tablet 300 mg PO DAILY 10/31/24 12/10/24 History pantoprazole 40 mg tablet,delayed 40 mg PO BID #180 tabs 11/19/24 12/10/24 Rx release duloxetine 30 mg capsule,delayed 30 mg PO DAILY #90 caps 11/28/24 12/10/24 Rx release Patient History Medical History SBO (small bowel obstruction) Surgical History History of reconstruction of right breast History of colonoscopy History of subtotal mastectomy of right breast Family History Father Myocardial infarction Sister Breast cancer Ovarian cancer Brother Colon cancer Diabetes Prostate cancer Colorectal cancer Mother Coronary heart disease Diabetes Social History Smoking Status: Former smoker Tobacco Type: Cigarettes Age Started Using Tobacco: 29; Age Quit Using Tobacco: 39; packs per day: 0.25; Cigarettes Per Day: 1-1 1/2 PPD; Second Hand Exposure: No; Do You Dip or Chew Tobacco: No; Hx Alcohol Use: No Hx Substance Use: No Preferred Language: Bahraini Communication Ability: Effective Visual Impairment: No Limitations Hearing Ability: Normal Last Model Maker Required: No Beliefs That Will Affect Care: None marital status: Current Living Situation: Spouse Current Living Situation Comment: lives with current occupational status: retired Feels Safe at Home: Yes Safety Concerns: Feels Safe At This Time Childhood Exposure to Second-Hand Smoke: Yes Diet: regular caffeine: No Dental Care, Regularly: Yes Physical Activity Frequency: Daily Seatbelt Use: always Sunscreen Use: Yes Assistive Devices: Walker Review of Systems 2 Review of Systems: All systems reviewed & are unremarkable except as noted in HPI & below Physical Exam 2 Physical Exam: Constitutional: Minimal respiratory distress HEENT: EOMI, PERRLA Respiratory system: Decreased air entry bilaterally, no wheeze, rhonchi, positive crackles appreciated bilaterally CVS: S1-S2 positive, no murmurs or gallops, tachycardia, left-sided Port-A-Cath Abdomen: Soft, nontender, nondistended, positive bowel sounds x4 Extremities: +2 pulses bilaterally radialis/ dorsalis pedis, no cyanosis, no edema, sclerodactyly bilateral index fingers Neuro: Awake alert oriented x3 Psych: Normal mood and affect G/U: Positive [place] Skin: no rashes, warm and dry Lymphatic: no cervical or axillary lymphadenopathy Results & Data Results & Data Vital Signs (Past 12 Hours) Vital Signs Temp Pulse Pulse Pulse Resp BP BP 12/12/24 07:26 125 H 37 H 120/90 12/12/24 07:05 121 H 12/12/24 06:14 124 H 114/83 12/12/24 06:05 12/12/24 05:55 50 H 12/12/24 05:55 144 H 145/101 H 12/12/24 05:09 127 H 12/12/24 05:09 129 H 40 H 12/12/24 05:05 12/12/24 05:05 127 H 140/100 12/12/24 04:50 170 H 215/96 H 12/12/24 02:01 36.5 C 105 H 16 109/50 L 12/11/24 23:52 36.4 C L 96 H 16 108/65 12/11/24 23:00 91 H 12/11/24 22:52 36.4 C L 114 H 16 123/74 Pulse Ox Pulse Ox O2 Del Method O2 Del Method O2 Flow Rate O2 Flow Rate FiO2 12/12/24 07:26 93 High Flow Nasal Cannula 50 100 12/12/24 07:05 12/12/24 06:14 12/12/24 06:05 96 BiPAP 100 12/12/24 05:55 12/12/24 05:55 12/12/24 05:09 12/12/24 05:09 97 100 12/12/24 05:05 BiPAP 100 12/12/24 05:05 12/12/24 04:50 12/12/24 02:01 92 Room Air 12/11/24 23:52 95 12/11/24 23:00 12/11/24 22:52 97 Laboratory Results 12/12/24 05:32 12/12/24 05:32 PG Care Time/CCT Total # of Minutes Spent Total Time Spent with Patient: Total time spent is greater than 50% in coordination of care (as documented) at patient's floor/unit and/or counseling patient: Coding Level of Care Code 95772 INT INP/OBS CARE 3/75MIN Diagnoses TACO (transfusion associated circulatory overload) E87.71 Acute respiratory failure with hypoxia and hypercapnia J96.01; J96.02 Lymphoma C85.90 Lymphoma type: unspecified type Systemic sclerosis M34.9 ILD (interstitial lung disease) J84.9 Multiple pulmonary nodules R91.8 LAD (lymphadenopathy), mediastinal R59.0
[2024-12-12 11:14] LABS: Influenza A virus by PCR Negative (Neg); Influenza B virus by PCR Negative (Neg); RSV by PCR Negative (Neg); SARS CoV2 RNA(COVID-19) Ceph NEGATIVE (Negative)
[2024-12-12] MEDS: PIPERACILLIN/TAZOBACTAM 4.5 GM/100 ML BAG IV SCH (12:42)
[2024-12-12 20:48] LABS: BUN Creatinine Ratio 20.3 (10-20); Calcium 7.8 mg/dl (8.6-10.3); Creatinine Clr Calc Pharmacy 57.1 ml/min; Potassium 3.5 mmol/L (3.5-5.1)
[2024-12-13] MEDS: POTASSIUM CHLORIDE CRTAB 20 MEQ TABCR PO STA ×2 (00:46→09:12)
[2024-12-13 07:57] LABS: Albumin Globulin Ratio 0.6 (0.9-2); Albumin Level 2.3 gm/dl (3.4-5.0); BUN Creatinine Ratio 19.4 (10-20); Bilirubin,Total 0.5 mg/dl (0.2-1.0); Calcium 8.4 mg/dl (8.6-10.3); Creatinine Clr Calc Pharmacy 62.6 ml/min; Globulin 3.6 gm/dl (2.5-4.0); Magnesium 1.8 mg/dl (1.7-2.4); Potassium 3.5 mmol/L (3.5-5.1); Total Protein 5.9 gm/dl (6.0-8.3)
[2024-12-13 08:00] LABS: Basophils # (auto) 0.04 K/uL (0.00-0.20); Basophils % (auto) 0.2 %; Eosinophils # (auto) 0.02 K/uL (0.00-0.50); Eosinophils % (auto) 0.1 %; Hematocrit (blood only) 26.5 % (37.0-47.0); Hemoglobin 8.6 g/dl (12.0-16.0); Immature Granulocytes # (auto) 0.18 K/uL (0.01-0.20); Lymphocytes # (auto) 0.51 K/uL (1.20-3.40); Lymphocytes % (auto) 2.9 %; Mean Corpuscular Hgb Conc 32.5 g/dL (32.0-36.0); Mean Corpuscular Volume 83.3 fL (80.0-100.0); Mean Platelet Volume 9.4 fL (9.4-12.4); Monocytes # (auto) 1.75 K/uL (0.11-0.59); Monocytes % (auto) 9.9 %; Neutrophils # (auto) 15.24 K/uL (1.40-6.50); Neutrophils % (auto) 85.9 %; Platelet Count 443 K/uL (130-400); Red Blood Count 3.18 M/uL (4.20-5.40); White Blood Count 17.74 K/ul (4.8-10.8)
[2024-12-13 08:05] LABS: INR 1.4 (0.9-1.1); Prothrombin Time 14.3 Seconds (9.0-12.0)
--- NOTE | 2024-12-13 08:44 | Pulmonology Progress Note ---
Date of Service December 13, 2024 Assessment & Plan (1) TACO (transfusion associated circulatory overload): (2) Acute respiratory failure with hypoxia and hypercapnia: (3) Lymphoma: Lymphoma type: unspecified type (4) Systemic sclerosis: (5) ILD (interstitial lung disease): (6) Multiple pulmonary nodules: (7) LAD (lymphadenopathy), mediastinal: Plan 2D echo 12/11/2024: EF 50-55%, mild concentric LVH, mild MR -- Acute hypoxic respiratory failure Likely secondary to fluid overload, the probability of TRALI is low. BNP being elevated goes against TRALI, she is febrile low grade but she has always been febrile and I think it is because of her underlying lymphoma. 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, on mycophenolate Subcarinal lymphadenopathy is likely from the history of lymphoma Rheumatoid factor and anti-CCP were negative Patient finished pulmonary rehab HRCT does show predominant right-sided fibrosis with early honeycombing, 2D echo shows normal right-sided pressures with mildly reduced RV function Latest PFT shows no significant change compared to the one in July 2023 Repeat echo on yearly basis, PFT and 6-minute walk test every 6 months We will consider repeating HRCT in future if there is any worsening in PFT Antifibrinolytic's like Ofev or Esbriet can also be thought off in future if there is significant decrease in DLCO or TLC with or without worsening on the CAT scan imaging HRCT 12/24/2022 personally reviewed: Bilateral apical pleural scarring, more prominent on the right side Mosaicism appreciated bilaterally Increased reticular markings in the periphery of the right lower lobe with right-sided volume loss and elevated right hemidiaphragm Significant mediastinal lymphadenopathy especially station 7 PFT 02/15/2024 personally reviewed: No obstructive lung dysfunction, insignificant bronchodilator response, normal TLC, normal DLCO (No significant change in FVC or FEV1, decrease in DLCO 86--> 75%, increase in weight by 10 pounds compared to 07/06) FVC 2.26 L 75%, FEV1 1.80 L 79%, FEV1/FVC 79%, ERV 49%, RV 102%, TLC 89%, RV/DLCO 114%, DLCO 75% 2D echo personally reviewed: EF 50%, mild concentric LVH, grade 1 diastolic dysfunction, RV normal in size with mildly reduced RV systolic function, RVSP normal --Multiple pulmonary nodules Less than 4 mm Patient quit smoking in 1997 --Ex-smoker [id number] smoking history Quit in 1997 Encouraged to continue abstinence from smoking -- 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 Following up with rheumatology --History of breast cancer 1987 status postchemotherapy as well as radiation -- 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 Patient seen and examined at bedside. No acute distress, no adverse events overnight She was saturating 99% on 4 L nasal cannula, and went down to 2 L Denied any headache, no nausea, no vomiting She feels much better compared to yesterday Coughing up clear phlegm Denied any chest pain, shortness of breath is improved No abdominal pain Constitutional: Minimal respiratory distress HEENT: EOMI, PERRLA Respiratory system: Decreased air entry bilaterally, no wheeze, rhonchi, positive crackles appreciated bilaterally CVS: S1-S2 positive, no murmurs or gallops, tachycardia, left-sided Port-A-Cath Abdomen: Soft, nontender, nondistended, positive bowel sounds x4 Extremities: +2 pulses bilaterally radialis/ dorsalis pedis, no cyanosis, no edema, sclerodactyly bilateral index fingers Neuro: Awake alert oriented x3 Psych: Normal mood and affect G/U: Positive Renteria Plan: In/out: -328, urine output 1350, +2.2 L since coming to the hospital Although patient did not significantly diurese she did have significant improvement in clinical status. I still think this is most likely TACO rather than Trelegy Repeat chest x-ray in the morning Continue with diuretics Nasal MRSA is negative Recommend CPAP of 5 and gradually increase it to 8 if possible. Case discussed with RN at bedside and primary team Please note the above document was generated using voice recognition software. It may contain grammatical, syntax or spelling errors.Any formal questions or concerns about the content, text or information contained within the body of this dictation should be directly addressed to the provider for clarification. Patient is Subjective Patient seen and evaluated at bedside this morning. She reports feeling much better today. She is saturating well on 4 L nasal cannula at this time. No complaints of chest pain, dyspnea, cough, hemoptysis, or pleuritic discomfort. Review of Systems 2 Review of Systems: As per subjective. Physical Exam 2 Physical Exam: VITAL SIGNS Vital signs and nursing notes were reviewed. GENERAL 74-year-old female appearing her stated age who is in no acute distress. Communicates well with provider and answers questions appropriately. SKIN Without rashes or lesions. NOSE Midline and without cyanosis. MOUTH/OROPHARYNX Without perioral cyanosis. NECK Neck with FROM. LUNGS Chest wall evaluation demonstrates normal chest wall A:P diameter. Auscultation reveals bibasilar rales. CARDIAC RRR with S1/S2. No murmur, rubs, or gallops appreciated. Skin: no rashes, warm and dry Lymphatic: no cervical or axillary lymphadenopathy Results & Data Results & Data Vital Signs (Past 12 Hours) Vital Signs Temp Pulse Pulse Pulse Resp BP Pulse Ox 12/13/24 08:13 36.6 C 120 H 18 141/69 H 97 12/13/24 07:13 96 H 12/13/24 03:51 96 H 17 98 12/13/24 03:27 36.8 C 108 H 18 105/57 L 100 12/12/24 22:34 115 H 12/12/24 22:14 36.5 C 106 H 20 109/61 98 O2 Del Method O2 Flow Rate FiO2 12/13/24 08:13 Nasal Cannula 4 12/13/24 07:13 12/13/24 03:51 High Flow Nasal Cannula 30 30 12/13/24 03:27 High Flow Nasal Cannula 12/12/24 22:34 12/12/24 22:14 High Flow Nasal Cannula Laboratory Results 12/13/24 06:55 12/13/24 06:55 PG Care Time/CCT Total # of Minutes Spent Total Time Spent with Patient: Total time spent is greater than 50% in coordination of care (as documented) at patient's floor/unit and/or counseling patient: Coding Level of Care Code 86591 SUB INP/OBS CARE 3/50MIN Diagnoses TACO (transfusion associated circulatory overload) E87.71 Acute respiratory failure with hypoxia and hypercapnia J96.01; J96.02 Lymphoma C85.90 Lymphoma type: unspecified type Systemic sclerosis M34.9 ILD (interstitial lung disease) J84.9 Multiple pulmonary nodules R91.8 LAD (lymphadenopathy), mediastinal R59.0
[2024-12-13] MEDS: FUROSEMIDE 40 MG/4 ML VIAL IV ONE (09:12)
--- NOTE | 2024-12-13 16:08 | Hospitalist Progress Note ---
Date of Service December 13, 2024 Assessment & Plan (1) Acute respiratory failure with hypoxia and hypercapnia: Plan: developed such early AM of 12/12/24 likely was 2nd to TACO; TRALI was also in the differential but unlikely s/p multiple doses of IV lasix since the event with improvement HFNC has been weaned off (had been on 100% FiO2 with such) s/p lasix IV this am; will give 2nd dose in evening CTA chest today - no PEs, no pneumonia; evidence of volume overload on CT appreciate pulmonary assistance (2) TACO (transfusion associated circulatory overload): Plan: cause of #1 above with future transfusions will need lasix following such cont diuresis - 2 doses of IV lasix today (3) Hyponatremia: Plan: Na level 126 upon admission 12/11 -- 134 this am -- 132 urine osm was low urine Na was borderline low NOT c/w SIADH TSH wnl cortisol level acceptable NaCl tabs (ordered upon admission) were stopped trend the sodium level in the face of #1 and diuresis (4) Hypomagnesemia: Plan: replaced resolved (5) Fever with leukocytosis and leukocyte count less than 20,000: Plan: present on admission -- u/a negative admit cxr negative resp BioFire negative admit blood cx's negative lyme negative MRSA swab negative repeat COVID/flu/RSV negative 12/12/24 AM - profound respiratory failure as noted in #1 above WBC peaked at 31,000 repeat blood cultures sent - remain negative zosyn/daptomycin started AM of 12/12/24 see discussion in #1 above WBC count improving repeat CBC in am CTA chest neg for pneumonia if blood cx's remain negative can likely stop zosyn/dapto (6) Transaminitis: Plan: resolved etiology? reactive? other? (7) GI bleed: Plan: prior h/o GAVE active GI bleed suspected at time of admission due to dark/melena stools seen at home recently GI consulted; they were planning EGD but this was deferred in light of #1 above cont PPI bid IV s/p 1 unit PRBCs for Hb of 7 this admission H/H acceptable today once again of note - pt has received 4 units PRBCs over the past 2 weeks (managed by Dr Plummer) did have a normal brown stool in the last 24 hours if any previous GI bleeding likely has stopped cont to advance diet CBC am (8) Lymphoma: Plan: recent diagnosis of such follows with Dr Logan Plummer - [facility] oncology was to start chemotherapy this week Dr Plummer is aware of her admission (9) Elevated troponin: Plan: present on admission thought 2nd to myocardial demand ischemia in setting of anemia, sinus tachycardia, fever, etc. troponin worsened on 12/12 -- 2nd to #1 echo from 12/11 -- EF 50-55%, normal LV wall motion (10) CREST (calcinosis, Raynaud's phenomenon, esophageal dysfunction, sclerodactyly, telangiectasia): Plan: and baseline ILD typically on cellcept BID for such I corresponded with Dr Plummer from heme/onc 12/11 - he prefers cellcept is held for now in light of fevers, new dx of lymphoma, etc. (11) Tachycardia: Plan: thus far sinus tach only no SVT, a.fib, a.flutter, etc. TSH wnl no PE on CTA chest anemia, chronic ILD, fever, SIRS, #1 above, etc -- all have contributed sinus tach has improved with diuresis echo with preserved EF 50-55% (12) ILD (interstitial lung disease): Plan: known diagnosis now with severe acute hypoxic/hypercapnic resp failure as in #1 above (13) TRALI (transfusion related acute lung injury): Plan: ruled out Plan Chronic stable diagnoses: HLD - statin held due to elevated LFTs neuropathy - continue gabapentin but lower the dose if any worsening mental status or worsening renal status hypothyroidism - continue levothyroxine; TSH wnl HTN - hold valsartan Elevated INR - liver dysfunction in the setting of #1? other? trend the INR if it remains high then consider dedicated imaging of liver thrombocytosis - suspect reactive to #1 trend R flank pain/R lower costal pain posteriorly -- suspect 2nd to retroperitoneal lymphadenopathy; nothing else seen on CT a/p on prior CTs; nothing on CTA chest today treat pain updated at bedside 12/12 PT, OT as tolerated Admission and Anticipated Discharge Date Admission Date: December 10, 2024 Subjective tele - sinus tach low 100s (improved from prior) patient feeling MUCH better today HFNC has been weaned off denies dyspnea at rest appetite better today c/o pain over the right flank/right mid-back (just to the right of the spine) present off/on x 2 months no pleuritic component to it when she gets it at home she takes tylenol for it usually it does not wake her up at night-time twisting/turning does not make it worse Review of Systems Review of Systems: gen - no fevers or chills cv - no chest pain GI - no N/V Physical Exam Physical Exam: gen - looks better today, NAD, lying comfortably in bed neck - no JVD mouth - MMM; no thrush heart - tachy, s1 s2, no murmur lungs - rales improved (they remain in b/l bases); no increased work of breathing abd - soft NT ND BS+ ext - no edema, pulses 2+ b/l psych - a/o x 3 Results & Data Results & Data Vital Signs (Past 12 Hours) Vital Signs Temp Pulse Pulse Resp BP Pulse Ox O2 Del Method 12/13/24 11:24 High Flow Nasal Cannula 12/13/24 11:21 36.5 C 115 H 18 90/58 L 99 Nasal Cannula 12/13/24 08:13 36.6 C 120 H 18 141/69 H 97 Nasal Cannula 12/13/24 07:13 96 H O2 Flow Rate 12/13/24 11:24 6 12/13/24 11:21 12/13/24 08:13 4 12/13/24 07:13 Laboratory Results Laboratory Results - last 24 hr 12/10/24 12/13/24 20:32 06:55 WBC 17.74 H RBC 3.18 L Hgb 8.6 L Hct 26.5 L MCV 83.3 MCH 27.0 MCHC 32.5 RDW Std Deviation 49.0 H RDW Coeff of Colette 16.0 H Plt Count 443 H MPV 9.4 Immature Gran % (Auto) 1.0 Neut % (Auto) 85.9 Lymph % (Auto) 2.9 Blaine % (Auto) 9.9 Eos % (Auto) 0.1 Baso % (Auto) 0.2 Neut # (Auto) 15.24 H Lymph # (Auto) 0.51 L Blaine # (Auto) 1.75 H Eos # (Auto) 0.02 Baso # (Auto) 0.04 Immature Gran # (Auto) 0.18 PT 14.3 H INR 1.4 H Sodium 132 L Potassium 3.5 Chloride 100 Carbon Dioxide 26 Anion Gap 6 BUN 14 Creatinine 0.72 Est Cr Clr Drug Dosing 62.6 eGFR 88.23 BUN/Creatinine Ratio 19.4 Glucose 117 H Calcium 8.4 L Magnesium 1.8 Total Bilirubin 0.5 AST 33 ALT 33 Alkaline Phosphatase 65 Total Protein 5.9 L D Albumin 2.3 L Globulin 3.6 Albumin/Globulin Ratio 0.6 L Crossmatch See Detail Diagnostic Findings Chest CTA 12/13/24 16:37 EXAMINATION: CTA angio chest PE protocol CLINICAL HISTORY: Respiratory failure, lymphoma PRIORS: Neck CTA 09/12/2024, chest radiograph 12/12/2024 TECHNIQUE: Contiguous CTA axial images were obtained through the chest with the use of intravenous contrast. Sagittal and coronal reformations are supplied. FINDINGS: The left-sided aortic arch is noted. An aberrant right subclavian artery is present taking all from the undersurface of the aortic arch, variant anatomy. The pulmonary arteries are well-opacified and not enlarged. No central or subsegmental pulmonary embolism noted. Subsegmental and peripheral pulmonary arteries not well visualized. Trachea and mainstem bronchi are patent. A left-sided Mediport catheter present with distal tip at the atriocaval junction. Heart size mildly enlarged. No pericardial effusion. Small to moderate bilateral pleural effusions noted. Diffuse subreticular interstitial changes and moderate pulmonary edema present. Traction bronchiectasis present in the right lung apex. Scattered regions of ground glass opacification noted. Extensive mediastinal adenopathy present, compatible with stated history of lymphoma. Subpectoral, supraclavicular adenopathy also noted. Surgical clips present in the right axilla. Moderate osseous demineralization noted. Moderate kyphosis noted. IMPRESSION: 1. No CTA evidence of a central or segmental pulmonary embolism. 2. Mild to moderate bilateral pleural effusions and CT features of volume overload. 3. Extensive adenopathy in the chest, compatible with stated history of lymphoma. Electronically signed by Lakeisha Drew 12-13-2024 7:11 PM PG Care Time/CCT Total # of Minutes Spent Total Time Spent with Patient: Total time spent is greater than 50% in coordination of care (as documented) at patient's floor/unit and/or counseling patient: Coding Level of Care Code 54146 SUB INP/OBS CARE 3/50MIN Diagnoses Acute respiratory failure with hypoxia and hypercapnia J96.01; J96.02 TACO (transfusion associated circulatory overload) E87.71 Hyponatremia E87.1 Hypomagnesemia E83.42 Fever with leukocytosis and leukocyte count less than 20,000 D72.829 Transaminitis R74.01 GI bleed K92.2 Lymphoma C85.90 Elevated troponin R79.89 CREST (calcinosis, Raynaud's phenomenon, esophageal dysfunction, sclerodactyly, telangiectasia) M34.1 Tachycardia R00.0 ILD (interstitial lung disease) J84.9 TRALI (transfusion related acute lung injury) J95.84
[2024-12-13] MEDS: OPTIRAY 320 125ml IV ONE (18:31)
--- NOTE | 2024-12-13 19:12 | CT Scan Report ---
EXAMINATION: CTA angio chest PE protocol CLINICAL HISTORY: Respiratory failure, lymphoma PRIORS: Neck CTA 09/12/2024, chest radiograph 12/12/2024 TECHNIQUE: Contiguous CTA axial images were obtained through the chest with the use of intravenous contrast. Sagittal and coronal reformations are supplied. FINDINGS: The left-sided aortic arch is noted. An aberrant right subclavian artery is present taking all from the undersurface of the aortic arch, variant anatomy. The pulmonary arteries are well-opacified and not enlarged. No central or subsegmental pulmonary embolism noted. Subsegmental and peripheral pulmonary arteries not well visualized. Trachea and mainstem bronchi are patent. A left-sided Mediport catheter present with distal tip at the atriocaval junction. Heart size mildly enlarged. No pericardial effusion. Small to moderate bilateral pleural effusions noted. Diffuse subreticular interstitial changes and moderate pulmonary edema present. Traction bronchiectasis present in the right lung apex. Scattered regions of ground glass opacification noted. Extensive mediastinal adenopathy present, compatible with stated history of lymphoma. Subpectoral, supraclavicular adenopathy also noted. Surgical clips present in the right axilla. Moderate osseous demineralization noted. Moderate kyphosis noted. IMPRESSION: 1. No CTA evidence of a central or segmental pulmonary embolism. 2. Mild to moderate bilateral pleural effusions and CT features of volume overload. 3. Extensive adenopathy in the chest, compatible with stated history of lymphoma. Electronically signed by Lakeisha Drew 12-13-2024 7:11 PM
[2024-12-13] MEDS: FUROSEMIDE INJ 20 MG/2 ML VIAL IV ONE (21:02)
[2024-12-13] MEDS: POTASSIUM CHLORIDE CRTAB 20 MEQ TABCR PO SCH (21:04)
--- NOTE | 2024-12-14 08:35 | Pulmonology Progress Note ---
Date of Service December 14, 2024 Assessment & Plan (1) TACO (transfusion associated circulatory overload): (2) Acute respiratory failure with hypoxia and hypercapnia: (3) Lymphoma: Lymphoma type: unspecified type (4) Systemic sclerosis: (5) ILD (interstitial lung disease): (6) Multiple pulmonary nodules: (7) LAD (lymphadenopathy), mediastinal: Plan 2D echo 12/11/2024: EF 50-55%, mild concentric LVH, mild MR Chest CTA 12/13/2024: Shows no PE. Improving effusion and pulmonary edema. Adenopathy. -- Acute hypoxic respiratory failure Likely secondary to fluid overload, the probability of TRALI is low. BNP being elevated goes against TRALI, she is febrile low grade but she has always been febrile and I think it is because of her underlying lymphoma. Respiratory BioFire negative for everything on 12/10/2024 BNP 935 Nasal MRSA negative O2 supplementation to keep oxygen saturation between 90-92% Patient is saturating well on 2 L nasal cannula. Continue to wean down as tolerated. Encourage out of bed to chair as able. Continue with pulmonary toileting as you are. 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, on mycophenolate Subcarinal lymphadenopathy is likely from the history of lymphoma Rheumatoid factor and anti-CCP were negative Patient finished pulmonary rehab HRCT does show predominant right-sided fibrosis with early honeycombing, 2D echo shows normal right-sided pressures with mildly reduced RV function Latest PFT shows no significant change compared to the one in July 2023 Repeat echo on yearly basis, PFT and 6-minute walk test every 6 months We will consider repeating HRCT in future if there is any worsening in PFT Antifibrinolytic's like Ofev or Esbriet can also be thought off in future if there is significant decrease in DLCO or TLC with or without worsening on the CAT scan imaging HRCT 12/24/2022 personally reviewed: Bilateral apical pleural scarring, more prominent on the right side Mosaicism appreciated bilaterally Increased reticular markings in the periphery of the right lower lobe with right-sided volume loss and elevated right hemidiaphragm Significant mediastinal lymphadenopathy especially station 7 PFT 02/15/2024 personally reviewed: No obstructive lung dysfunction, insignificant bronchodilator response, normal TLC, normal DLCO (No significant change in FVC or FEV1, decrease in DLCO 86--> 75%, increase in weight by 10 pounds compared to 07/06) FVC 2.26 L 75%, FEV1 1.80 L 79%, FEV1/FVC 79%, ERV 49%, RV 102%, TLC 89%, RV/DLCO 114%, DLCO 75% 2D echo personally reviewed: EF 50%, mild concentric LVH, grade 1 diastolic dysfunction, RV normal in size with mildly reduced RV systolic function, RVSP normal --Multiple pulmonary nodules Less than 4 mm Patient quit smoking in 1997 --Ex-smoker [id number] smoking history Quit in 1997 Encouraged to continue abstinence from smoking -- 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 Following up with rheumatology --History of breast cancer 1987 status postchemotherapy as well as radiation -- 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 Patient seen and examined at bedside. No distress, no adverse events overnight Patient says she is feeling much better She was on 2 L nasal cannula saturating well. Advised the nurse to take her off oxygen. Constitutional: No acute distress HEENT: EOMI, PERRLA Respiratory system: Good air entry bilaterally, no wheeze, no rhonchi, positive crackles appreciated bilaterally, Velcro-like especially on the left side CVS: S1-S2 positive, no murmurs or gallops, tachycardia, left-sided Port-A-Cath Abdomen: Soft, nontender, nondistended, positive bowel sounds x4 Extremities: +2 pulses bilaterally radialis/ dorsalis pedis, no cyanosis, no edema, sclerodactyly bilateral index fingers Neuro: Awake alert oriented x3 Psych: Normal mood and affect G/U: Positive Renteria Plan: In/out: -1700, urine output 2300, + 530 mL since coming to the hospital I still think this is most likely TACO rather than TRALI CTA chest 12/13/2024 personally reviewed: Right apical pleural parenchymal scarring Patchy groundglass opacities appreciated bilaterally especially in the upper lobes, likely representing pulmonary edema Motion degraded study Minimal bilateral pleural effusion Significant hilar and mediastinal lymphadenopathy Continue with diuretics Nasal MRSA is negative Recommend CPAP of 5 and gradually increase it to 8 if possible. Case discussed with RN at bedside Please note the above document was generated using voice recognition software. It may contain grammatical, syntax or spelling errors.Any formal questions or concerns about the content, text or information contained within the body of this dictation should be directly addressed to the provider for clarification. Patient is Subjective Patient seen and evaluated at bedside. She is out of bed and eating breakfast in a chair. She reports no adverse events overnight. She is saturating well on 2 L nasal cannula. She denies complaints of shortness of breath, pleuritic pain, hemoptysis, or progressive cough. Overall, she feels markedly better. Review of Systems 2 Review of Systems: As per subjective. Physical Exam 2 Physical Exam: VITAL SIGNS Vital signs and nursing notes were reviewed. GENERAL 74-year-old female appearing her stated age who is in no acute distress. Communicates well with provider and answers questions appropriately. SKIN Without rashes or lesions. NOSE Midline and without cyanosis. MOUTH/OROPHARYNX Without perioral cyanosis. NECK Neck with FROM. LUNGS Chest wall evaluation demonstrates normal chest wall A:P diameter. Auscultation reveals slight bibasilar rales. CARDIAC RRR with S1/S2. No murmur, rubs, or gallops appreciated. Skin: no rashes, warm and dry Lymphatic: no cervical or axillary lymphadenopathy Results & Data Results & Data Vital Signs (Past 12 Hours) Vital Signs Temp Pulse Resp BP Pulse Ox Pulse Ox O2 Del Method 12/14/24 06:00 95 12/14/24 03:11 37 C 100 H 18 100/61 98 High Flow Nasal Cannula 12/13/24 23:14 36.8 C 124 H 18 110/65 96 High Flow Nasal Cannula 12/13/24 20:30 High Flow Nasal Cannula O2 Del Method O2 Flow Rate O2 Flow Rate 12/14/24 06:00 High Flow Nasal Cannula 2 12/14/24 03:11 12/13/24 23:14 12/13/24 20:30 2 Laboratory Results 12/14/24 08:07 12/14/24 08:07 PG Care Time/CCT Total # of Minutes Spent Total Time Spent with Patient: Total time spent is greater than 50% in coordination of care (as documented) at patient's floor/unit and/or counseling patient: Coding Level of Care Code 24050 SUB INP/OBS CARE 2/35MIN Diagnoses TACO (transfusion associated circulatory overload) E87.71 Acute respiratory failure with hypoxia and hypercapnia J96.01; J96.02 Lymphoma C85.90 Lymphoma type: unspecified type Systemic sclerosis M34.9 ILD (interstitial lung disease) J84.9 Multiple pulmonary nodules R91.8 LAD (lymphadenopathy), mediastinal R59.0
[2024-12-14 08:43] LABS: Hematocrit (blood only) 25.6 % (37.0-47.0); Hemoglobin 8.3 g/dl (12.0-16.0); Mean Corpuscular Hemoglobin 27.1 pg (25.0-34.0); Mean Corpuscular Hgb Conc 32.4 g/dL (32.0-36.0); Mean Corpuscular Volume 83.7 fL (80.0-100.0); Mean Platelet Volume 9.2 fL (9.4-12.4); Platelet Count 491 K/uL (130-400); RDW Coefficient of Variation 15.9 % (11.5-14.5); RDW Standard Deviation 48.9 fL (36.4-46.3); Red Blood Count 3.06 M/uL (4.20-5.40); White Blood Count 14.06 K/ul (4.8-10.8)
[2024-12-14 08:57] LABS: BUN Creatinine Ratio 14.1 (10-20); Calcium 8.7 mg/dl (8.6-10.3); Creatinine Clr Calc Pharmacy 70.4 ml/min; Potassium 3.4 mmol/L (3.5-5.1)
[2024-12-14 09:00] LABS: INR 1.3 (0.9-1.1); Prothrombin Time 13.4 Seconds (9.0-12.0)
[2024-12-14] MEDS: FUROSEMIDE 40 MG/4 ML VIAL IV ONE (10:31)
[2024-12-14] MEDS: POTASSIUM CHLORIDE CRTAB 20 MEQ TABCR PO ONE (13:09)
--- NOTE | 2024-12-14 17:05 | Hospitalist Progress Note ---
Date of Service December 14, 2024 Assessment & Plan (1) Acute respiratory failure with hypoxia and hypercapnia: Plan: developed such early AM of 12/12/24 likely was 2nd to TACO; TRALI was also in the differential but very unlikely s/p multiple doses of IV lasix since the event with improvement in pulm edema o2 weaned off exam MUCH improved s/p lasix IV this am; will not give 2nd dose this evening CTA chest 12/13/24 - no PEs, no pneumonia; evidence of volume overload on CT appreciate pulmonary assistance (2) TACO (transfusion associated circulatory overload): Plan: cause of #1 above with future transfusions will need lasix following such cont diuresis TACO likely almost fully resolved (3) Hyponatremia: Plan: Na level 126 upon admission 132 today in retrospect some of the hyponatremia may have been due to volume overload TSH wnl cortisol level acceptable repeat BMP am (4) Hypomagnesemia: Plan: replaced resolved repeat level in am tomorrow for stability (5) Fever with leukocytosis and leukocyte count less than 20,000: Plan: present on admission -- u/a negative admit cxr negative resp BioFire negative admit blood cx's negative lyme negative MRSA swab negative repeat COVID/flu/RSV negative CTA chest w/o pneumonia or PE blood cx's - repeat - also negative since cultures are negative stop zosyn/daptomycin repeat CBC in am (6) Transaminitis: Plan: resolved etiology was uncertain but due to hepatic congestion from volume overload? ast/alt elevation resolved with diuresis (7) GI bleed: Plan: prior h/o GAVE active GI bleed was suspected at time of admission due to dark/melena stools seen at home recently GI consulted; they were planning EGD but this was deferred in light of #1 above s/p 1 unit PRBCs for Hb of 7 this admission H/H acceptable once again today of note - pt had received 4 units PRBCs over the past 2 weeks (managed by Dr Plummer) if any previous GI bleeding likely has stopped diet as tolerated CBC am (8) Lymphoma: Plan: recent diagnosis of such follows with Dr Logan Plummer - [facility] oncology was to start chemotherapy this week Dr Plummer is aware of her admission I will give him another [place] update this afternoon re: #2 above (9) Elevated troponin: Plan: present on admission thought 2nd to myocardial demand ischemia in setting of anemia, sinus tachycardia, fever, etc. troponin worsened on 12/12 -- 2nd to #1 echo from 12/11 -- EF 50-55%, normal LV wall motion (10) CREST (calcinosis, Raynaud's phenomenon, esophageal dysfunction, sclerodactyly, telangiectasia): Plan: with baseline ILD typically on cellcept BID for such I corresponded with Dr Plummer from heme/onc 12/11 - he prefers cellcept is held for now in light of fevers, new dx of lymphoma, etc. (11) Tachycardia: Plan: sinus tach only the entire stay no SVT, a.fib, a.flutter, etc. TSH wnl no PE on CTA chest no pain or anxiety anemia, chronic ILD, fevers, SIRS - likely all to blame echo with preserved EF 50-55% consider low-dose metoprolol given the low-normal EF but defer for now (12) ILD (interstitial lung disease): Plan: known diagnosis now with severe acute hypoxic/hypercapnic resp failure as in #1 above (13) TRALI (transfusion related acute lung injury): Plan: ruled out Plan Chronic stable diagnoses: HLD - statin held due to elevated LFTs but can resume tomorrow neuropathy - continue gabapentin hypothyroidism - continue levothyroxine; TSH wnl HTN - hold valsartan Elevated INR - liver dysfunction in the setting of #1, #2? other? trend the INR INR is better today (1.4 --> 1.3) thrombocytosis - suspect reactive to #1 - improved R flank pain/R lower costal pain posteriorly -- suspect 2nd to retroperitoneal lymphadenopathy; nothing else seen on CT a/p on prior CTs; nothing on CTA chest treat pain updated at bedside 12/12 and again today, 12/14 passed PT/OT uma hopeful for d/c home tomorrow remove dewitt Admission and Anticipated Discharge Date Admission Date: December 10, 2024 Subjective tele - ongoing sinus tach patient feels much better breathing is significantly better she particularly notices improvement in the breathing with activity - even better in comparison to when she was first admitted no cough no chest pain eating well asks if she can leave today o2 has been weaned off Review of Systems Review of Systems: gen - no fevers or chills cv - no chest pain, no edema, no orthopnea pulm - no dyspnea, improved MURRAY, no cough, no wheezing GI - no abd pain or N/V; last stool - brown in color Physical Exam Physical Exam: gen - looks great, NAD, sitting in chair neck - no JVD mouth - MMM; no thrush heart - tachy, s1 s2, no murmur lungs - minimal rales b/l bases; no increased work of breathing abd - soft NT ND BS+ ext - no edema, pulses 2+ b/l psych - a/o x 3 Results & Data Results & Data Vital Signs (Past 12 Hours) Vital Signs Temp Pulse Resp BP Pulse Ox Pulse Ox Pulse Ox 12/14/24 16:37 36.7 C 126 H 16 111/60 91 12/14/24 13:10 91 12/14/24 12:12 12/14/24 10:34 37.0 C 108 H 17 114/63 96 12/14/24 08:29 36.8 C 118 H 18 102/70 98 12/14/24 06:00 95 Pulse Ox O2 Del Method O2 Del Method O2 Flow Rate O2 Flow Rate O2 Flow Rate O2 Flow Rate 12/14/24 16:37 Room Air 12/14/24 13:10 97 0 0 12/14/24 12:12 Room Air 12/14/24 10:34 Room Air 12/14/24 08:29 Nasal Cannula 2 12/14/24 06:00 High Flow Nasal Cannula 2 Laboratory Results Laboratory Results - last 24 hr 12/10/24 12/14/24 20:32 08:07 WBC 14.06 H RBC 3.06 L Hgb 8.3 L Hct 25.6 L MCV 83.7 MCH 27.1 MCHC 32.4 RDW Std Deviation 48.9 H RDW Coeff of Colette 15.9 H Plt Count 491 H MPV 9.2 L PT 13.4 H INR 1.3 H Sodium 132 L Potassium 3.4 L Chloride 97 L Carbon Dioxide 29 Anion Gap 6 BUN 9 Creatinine 0.64 Est Cr Clr Drug Dosing 70.4 eGFR 93.26 BUN/Creatinine Ratio 14.1 Glucose 107 H Calcium 8.7 Crossmatch See Detail PG Care Time/CCT Total # of Minutes Spent Total Time Spent with Patient: Total time spent is greater than 50% in coordination of care (as documented) at patient's floor/unit and/or counseling patient: Coding Level of Care Code 19835 SUB INP/OBS CARE 2/35MIN Diagnoses Acute respiratory failure with hypoxia and hypercapnia J96.01; J96.02 TACO (transfusion associated circulatory overload) E87.71 Hyponatremia E87.1 Hypomagnesemia E83.42 Fever with leukocytosis and leukocyte count less than 20,000 D72.829 Transaminitis R74.01 GI bleed K92.2 Lymphoma C85.90 Elevated troponin R79.89 CREST (calcinosis, Raynaud's phenomenon, esophageal dysfunction, sclerodactyly, telangiectasia) M34.1 Tachycardia R00.0 ILD (interstitial lung disease) J84.9 TRALI (transfusion related acute lung injury) J95.84
[2024-12-14] MEDS: PANTOprazole 40 MG TAB PO SCH (20:57)
[2024-12-15 07:53] LABS: Hematocrit (blood only) 23.5 % (37.0-47.0); Hemoglobin 7.6 g/dl (12.0-16.0); Mean Corpuscular Hemoglobin 27.2 pg (25.0-34.0); Mean Corpuscular Hgb Conc 32.3 g/dL (32.0-36.0); Mean Corpuscular Volume 84.2 fL (80.0-100.0); Mean Platelet Volume 9.1 fL (9.4-12.4); Platelet Count 462 K/uL (130-400); RDW Coefficient of Variation 15.8 % (11.5-14.5); RDW Standard Deviation 48.4 fL (36.4-46.3); Red Blood Count 2.79 M/uL (4.20-5.40); White Blood Count 11.82 K/ul (4.8-10.8)
[2024-12-15] MEDS: METOPROLOL TARTRATE 25 MG TAB PO SCH ×2 (07:57→20:31)
--- NOTE | 2024-12-15 08:18 | Pulmonology Progress Note ---
Date of Service December 15, 2024 Assessment & Plan (1) TACO (transfusion associated circulatory overload): (2) Acute respiratory failure with hypoxia and hypercapnia: (3) Lymphoma: Lymphoma type: unspecified type (4) Systemic sclerosis: (5) ILD (interstitial lung disease): (6) Multiple pulmonary nodules: (7) LAD (lymphadenopathy), mediastinal: Plan CTA chest 12/13/2024 personally reviewed: Right apical pleural parenchymal scarring Patchy groundglass opacities appreciated bilaterally especially in the upper lobes, likely representing pulmonary edema Motion degraded study Minimal bilateral pleural effusion Significant hilar and mediastinal lymphadenopathy 2D echo 12/11/2024: EF 50-55%, mild concentric LVH, mild MR -- Acute hypoxic respiratory failure --> resolved, patient is back on room air Likely secondary to fluid overload, the probability of TRALI is low. BNP being elevated goes against TRALI, she is febrile low grade but she has always been febrile and I think it is because of her underlying lymphoma. 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, on mycophenolate Subcarinal lymphadenopathy is likely from the history of lymphoma Rheumatoid factor and anti-CCP were negative Patient finished pulmonary rehab HRCT does show predominant right-sided fibrosis with early honeycombing, 2D echo shows normal right-sided pressures with mildly reduced RV function Latest PFT shows no significant change compared to the one in July 2023 Repeat echo on yearly basis, PFT and 6-minute walk test every 6 months We will consider repeating HRCT in future if there is any worsening in PFT Antifibrinolytic's like Ofev or Esbriet can also be thought off in future if there is significant decrease in DLCO or TLC with or without worsening on the CAT scan imaging HRCT 12/24/2022 personally reviewed: Bilateral apical pleural scarring, more prominent on the right side Mosaicism appreciated bilaterally Increased reticular markings in the periphery of the right lower lobe with right-sided volume loss and elevated right hemidiaphragm Significant mediastinal lymphadenopathy especially station 7 PFT 02/15/2024 personally reviewed: No obstructive lung dysfunction, insignificant bronchodilator response, normal TLC, normal DLCO (No significant change in FVC or FEV1, decrease in DLCO 86--> 75%, increase in weight by 10 pounds compared to 07/06) FVC 2.26 L 75%, FEV1 1.80 L 79%, FEV1/FVC 79%, ERV 49%, RV 102%, TLC 89%, RV/DLCO 114%, DLCO 75% 2D echo personally reviewed: EF 50%, mild concentric LVH, grade 1 diastolic dysfunction, RV normal in size with mildly reduced RV systolic function, RVSP normal --Multiple pulmonary nodules Less than 4 mm Patient quit smoking in 1997 --Ex-smoker [id number] smoking history Quit in 1997 Encouraged to continue abstinence from smoking -- 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 Following up with rheumatology --History of breast cancer 1988 status postchemotherapy as well as radiation -- 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 It may contain grammatical, syntax or spelling errors.Any formal questions or concerns about the content, text or information contained within the body of this dictation should be directly addressed to the provider for clarification. Admission and Anticipated Discharge Date Admission Date: December 10, 2024 Subjective Patient seen and examined at bedside. No acute distress, no adverse events overnight She says that breathing has improved. She was saturating well on room air Denied any nausea or vomiting Fair appetite. No headache or blurry vision Review of Systems 2 Review of Systems: All systems reviewed & are unremarkable except as noted in Subjective Physical Exam 2 Physical Exam: Constitutional: No acute distress HEENT: EOMI, PERRLA Respiratory system: Good air entry bilaterally, no wheeze, no rhonchi, positive crackles appreciated bilaterally, Velcro-like especially on the left side CVS: S1-S2 positive, no murmurs or gallops, tachycardia, left-sided Port-A-Cath Abdomen: Soft, nontender, nondistended, positive bowel sounds x4 Extremities: +2 pulses bilaterally radialis/ dorsalis pedis, no cyanosis, no edema, sclerodactyly bilateral index fingers Neuro: Awake alert oriented x3 Psych: Normal mood and affect G/U: Positive Renteria Skin: no rashes, warm and dry Lymphatic: no cervical or axillary lymphadenopathy Results & Data Results & Data Vital Signs (Past 12 Hours) Vital Signs Temp Pulse Pulse Resp BP Pulse Ox Pulse Ox 12/15/24 07:32 37.1 C 124 H 18 122/70 94 12/15/24 06:00 91 12/15/24 05:37 37.6 C H 12/15/24 03:00 37.9 C H 118 H 17 104/58 L 91 12/14/24 22:39 36.6 C 120 H 20 110/61 93 O2 Del Method O2 Del Method 12/15/24 07:32 Room Air 12/15/24 06:00 Room Air 12/15/24 05:37 12/15/24 03:00 Room Air 12/14/24 22:39 Room Air Laboratory Results 12/15/24 07:11 PG Care Time/CCT Total # of Minutes Spent Total Time Spent with Patient: Total time spent is greater than 50% in coordination of care (as documented) at patient's floor/unit and/or counseling patient: Coding Level of Care Code 68459 SUB INP/OBS CARE 2/35MIN Diagnoses TACO (transfusion associated circulatory overload) E87.71 Acute respiratory failure with hypoxia and hypercapnia J96.01; J96.02 Lymphoma C85.90 Lymphoma type: unspecified type Systemic sclerosis M34.9 ILD (interstitial lung disease) J84.9 Multiple pulmonary nodules R91.8 LAD (lymphadenopathy), mediastinal R59.0
[2024-12-15 08:21] LABS: BUN Creatinine Ratio 12.7 (10-20); Calcium 8.7 mg/dl (8.6-10.3); Magnesium 1.6 mg/dl (1.7-2.4); Potassium 4.1 mmol/L (3.5-5.1)
[2024-12-15] MEDS: MAGNESIUM SULFATE / D5W 1 GM/100 ML BAG IV SCH (09:19)
[2024-12-15] MEDS: FUROSEMIDE INJ 20 MG/2 ML VIAL IV ONE ×2 (09:19→20:30)
[2024-12-15] MEDS ORDERED: SODIUM CHLORIDE 0.9% 100 ML IV PRN (13:42)
[2024-12-15] MEDS ORDERED: SODIUM CHLORIDE 0.9% 50 ML IV PRN (13:42)
--- NOTE | 2024-12-15 13:44 | Hospitalist Progress Note ---
Date of Service December 15, 2024 Assessment & Plan (1) Acute respiratory failure with hypoxia and hypercapnia: Plan: developed such early AM of 12/12/24 likely was 2nd to TACO; TRALI was also in the differential but very unlikely resp failure resolved fully off O2 passed ambulatory 2-step O2 test today s/p multiple doses of IV lasix since the event with improvement in pulm edema will give lasix 20mg x 1 this am, then 20mg more after her PRBCs CTA chest 12/13/24 - no PEs, no pneumonia; evidence of volume overload on CT appreciate pulmonary assistance (2) TACO (transfusion associated circulatory overload): Plan: cause of #1 above with future transfusions will need lasix following such cont diuresis as noted in #1 above TACO likely almost fully resolved (3) Hyponatremia: Plan: Na level 126 upon admission 133 today in retrospect some of the hyponatremia may have been due to volume overload TSH wnl cortisol level acceptable repeat BMP am (4) Hypomagnesemia: Plan: mag 1.6 replace again with IV mag x 2 grams repeat level in am tomorrow (5) Fever with leukocytosis and leukocyte count less than 20,000: Plan: present on admission -- u/a negative admit cxr negative resp BioFire negative admit blood cx's negative lyme negative MRSA swab negative repeat COVID/flu/RSV negative CTA chest w/o pneumonia or PE blood cx's - repeat - also negative fever likely 2nd to lymphoma when she has fever she does not notice the temp, she does not feel ill, appetite is good, no chills, etc. since cultures are negative stopped zosyn/daptomycin repeat CBC in am (6) Transaminitis: Plan: resolved etiology was uncertain but due to hepatic congestion from volume overload? ast/alt elevation resolved with diuresis (7) GI bleed: Plan: prior h/o GAVE active GI bleed was suspected at time of admission due to dark/melena stools seen at home recently GI consulted; they were planning EGD but this was deferred in light of #1 above s/p 1 unit PRBCs for Hb of 7 this admission will give 1 additional unit of blood today of note - pt had received 4 units PRBCs over the past 2 weeks (managed by Dr Plummer) if any previous GI bleeding likely has stopped diet as tolerated fecal occult if any further stool CBC am (8) Lymphoma: Plan: recent diagnosis of such follows with Dr Logan Plummer - [facility] oncology was to start chemotherapy this past week Dr Plummer is aware of her admission will need f/u with him THIS WEEK to initiate chemo (9) Elevated troponin: Plan: present on admission thought 2nd to myocardial demand ischemia in setting of anemia, sinus tachycardia, fever, etc. troponin worsened on 12/12 -- 2nd to #1 echo from 12/11 -- EF 50-55%, normal LV wall motion (10) CREST (calcinosis, Raynaud's phenomenon, esophageal dysfunction, sclerodactyly, telangiectasia): Plan: with baseline ILD typically on cellcept BID for such I corresponded with Dr Plummer from heme/onc 12/11 - he prefers cellcept is held for now in light of fevers, new dx of lymphoma, etc. (11) Tachycardia: Plan: sinus tach only the entire stay no SVT, a.fib, a.flutter, etc. TSH wnl no PE on CTA chest no pain or anxiety anemia, chronic ILD, fevers, SIRS - likely all to blame echo with preserved EF 50-55% but EF is low-normal start metoprolol 12.5mg BID and titrate transfuse 1 unit PRBCs (12) ILD (interstitial lung disease): Plan: known diagnosis passed 2-step ambulatory o2 test today (13) TRALI (transfusion related acute lung injury): Plan: ruled out Plan Chronic stable diagnoses: HLD - cont statin neuropathy - continue gabapentin hypothyroidism - continue levothyroxine; TSH wnl HTN - hold valsartan; use metoprolol in leni Elevated INR - liver dysfunction in the setting of #1, #2? other? most recent INR - 1.3) thrombocytosis - suspect reactive to #1 - improved/resolving R flank pain/R lower costal pain posteriorly -- suspect 2nd to retroperitoneal lymphadenopathy; nothing else seen on CT a/p on prior CTs; nothing on CTA chest treat pain updated at bedside 12/12, 12/14, and 12/15 passed PT/OT ozzyals hopeful for d/c home tomorrow Admission and Anticipated Discharge Date Admission Date: December 10, 2024 Subjective patient without complaints she is ready to d/c home during her 2-step O2 test today she had NO dyspnea on exertion remains tachycardia - all sinus -- rates >100 she will tach to 140s with walking denies chest pain, headache, cough, nausea, emesis, abd pain no dysuria eating well Review of Systems Review of Systems: gen - when she has fever she does not notice it; no chills feels good CV - no chest pain pulm - no cough, no dyspnea, no wheezing GI - no N/V/diarrhea musculo - denies joint pains Physical Exam Physical Exam: gen - looks great, NAD, sitting in chair neck - no JVD mouth - MMM; no thrush heart - remains tachy, s1 s2, no murmur lungs - minimal rales b/l bases; no increased work of breathing; no wheezing abd - soft NT ND BS+ ext - no edema, pulses 2+ b/l psych - a/o x 3 skin - no rash Results & Data Results & Data Vital Signs (Past 12 Hours) Vital Signs Temp Pulse Pulse Pulse Pulse Resp Resp 12/15/24 12:45 132 H 121 H 18 12/15/24 12:20 37.5 C 122 H 18 12/15/24 11:18 12/15/24 07:32 37.1 C 124 H 18 12/15/24 06:00 12/15/24 05:37 37.6 C H 12/15/24 03:00 37.9 C H 118 H 17 Resp BP Pulse Ox Pulse Ox Pulse Ox Pulse Ox O2 Del Method 12/15/24 12:45 18 95 97 12/15/24 12:20 106/64 92 Room Air 12/15/24 11:18 Room Air 12/15/24 07:32 122/70 94 Room Air 12/15/24 06:00 91 12/15/24 05:37 12/15/24 03:00 104/58 L 91 Room Air O2 Del Method 12/15/24 12:45 12/15/24 12:20 12/15/24 11:18 12/15/24 07:32 12/15/24 06:00 Room Air 12/15/24 05:37 12/15/24 03:00 Laboratory Results Laboratory Results - last 24 hr 12/15/24 07:11 WBC 11.82 H RBC 2.79 L Hgb 7.6 L Hct 23.5 L MCV 84.2 MCH 27.2 MCHC 32.3 RDW Std Deviation 48.4 H RDW Coeff of Colette 15.8 H Plt Count 462 H MPV 9.1 L Sodium 133 L Potassium 4.1 D Chloride 98 Carbon Dioxide 30 Anion Gap 5 BUN 7 Creatinine 0.55 L Est Cr Clr Drug Dosing 82.0 eGFR 96.72 BUN/Creatinine Ratio 12.7 Glucose 89 Calcium 8.7 Magnesium 1.6 L PG Care Time/CCT Total # of Minutes Spent Total Time Spent with Patient: Total time spent is greater than 50% in coordination of care (as documented) at patient's floor/unit and/or counseling patient: Coding Level of Care Code 10435 SUB INP/OBS CARE 3/50MIN Diagnoses Acute respiratory failure with hypoxia and hypercapnia J96.01; J96.02 TACO (transfusion associated circulatory overload) E87.71 Hyponatremia E87.1 Hypomagnesemia E83.42 Fever with leukocytosis and leukocyte count less than 20,000 D72.829 Transaminitis R74.01 GI bleed K92.2 Lymphoma C85.90 Elevated troponin R79.89 CREST (calcinosis, Raynaud's phenomenon, esophageal dysfunction, sclerodactyly, telangiectasia) M34.1 Tachycardia R00.0 ILD (interstitial lung disease) J84.9 TRALI (transfusion related acute lung injury) J95.84
[2024-12-15] MEDS: ACETAMINOPHEN 500 MG TAB PO ONE (16:43)
[2024-12-16 06:25] LABS: Hematocrit (blood only) 29.1 % (37.0-47.0); Hemoglobin 9.3 g/dl (12.0-16.0); Mean Corpuscular Hemoglobin 27.1 pg (25.0-34.0); Mean Corpuscular Volume 84.8 fL (80.0-100.0); Mean Platelet Volume 9.1 fL (9.4-12.4); Platelet Count 475 K/uL (130-400); RDW Coefficient of Variation 16.4 % (11.5-14.5); RDW Standard Deviation 50.7 fL (36.4-46.3); Red Blood Count 3.43 M/uL (4.20-5.40); White Blood Count 12.75 K/ul (4.8-10.8)
[2024-12-16 06:43] LABS: BUN Creatinine Ratio 17.7 (10-20); Calcium 8.7 mg/dl (8.6-10.3); Creatinine Clr Calc Pharmacy 72.7 ml/min; Magnesium 1.7 mg/dl (1.7-2.4); Potassium 4.2 mmol/L (3.5-5.1)
[2024-12-16] MEDS: METOPROLOL TARTRATE 50 MG TAB PO SCH (08:47)
--- NOTE | 2024-12-16 09:05 | Pulmonology Progress Note ---
Date of Service December 16, 2024 Assessment & Plan (1) TACO (transfusion associated circulatory overload): (2) Acute respiratory failure with hypoxia and hypercapnia: (3) Lymphoma: Lymphoma type: unspecified type (4) Systemic sclerosis: (5) ILD (interstitial lung disease): (6) Multiple pulmonary nodules: (7) LAD (lymphadenopathy), mediastinal: Plan CTA chest 12/13/2024 personally reviewed: Right apical pleural parenchymal scarring Patchy groundglass opacities appreciated bilaterally especially in the upper lobes, likely representing pulmonary edema Motion degraded study Minimal bilateral pleural effusion Significant hilar and mediastinal lymphadenopathy 2D echo 12/11/2024: EF 50-55%, mild concentric LVH, mild MR -- Acute hypoxic respiratory failure --> resolved, patient is back on room air Likely secondary to fluid overload, the probability of TRALI is low. BNP being elevated goes against TRALI, she is febrile low grade but she has always been febrile and I think it is because of her underlying lymphoma. 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, on mycophenolate Subcarinal lymphadenopathy is likely from the history of lymphoma Rheumatoid factor and anti-CCP were negative Patient finished pulmonary rehab HRCT does show predominant right-sided fibrosis with early honeycombing, 2D echo shows normal right-sided pressures with mildly reduced RV function Latest PFT shows no significant change compared to the one in July 2023 Repeat echo on yearly basis, PFT and 6-minute walk test every 6 months We will consider repeating HRCT in future if there is any worsening in PFT Antifibrinolytic's like Ofev or Esbriet can also be thought off in future if there is significant decrease in DLCO or TLC with or without worsening on the CAT scan imaging HRCT 12/24/2022 personally reviewed: Bilateral apical pleural scarring, more prominent on the right side Mosaicism appreciated bilaterally Increased reticular markings in the periphery of the right lower lobe with right-sided volume loss and elevated right hemidiaphragm Significant mediastinal lymphadenopathy especially station 7 PFT 02/15/2024 personally reviewed: No obstructive lung dysfunction, insignificant bronchodilator response, normal TLC, normal DLCO (No significant change in FVC or FEV1, decrease in DLCO 86--> 75%, increase in weight by 10 pounds compared to 07/06) FVC 2.26 L 75%, FEV1 1.80 L 79%, FEV1/FVC 79%, ERV 49%, RV 102%, TLC 89%, RV/DLCO 114%, DLCO 75% 2D echo personally reviewed: EF 50%, mild concentric LVH, grade 1 diastolic dysfunction, RV normal in size with mildly reduced RV systolic function, RVSP normal --Multiple pulmonary nodules Less than 4 mm Patient quit smoking in 1997 --Ex-smoker [id number] smoking history Quit in 1997 Encouraged to continue abstinence from smoking -- 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 It may contain grammatical, syntax or spelling errors.Any formal questions or concerns about the content, text or information contained within the body of this dictation should be directly addressed to the provider for clarification. Admission and Anticipated Discharge Date Admission Date: December 10, 2024 Subjective Patient seen and examined at bedside. No acute distress, no adverse events overnight She was saturating 99% on room air. Overall she says she is feeling much better. Denies any nausea vomiting No headache, fair appetite Review of Systems 2 Review of Systems: All systems reviewed & are unremarkable except as noted in Subjective Physical Exam 2 Physical Exam: Constitutional: No acute distress HEENT: EOMI, PERRLA Respiratory system: Good air entry bilaterally, no wheeze, no rhonchi, positive crackles appreciated bilaterally, Velcro-like especially on the left side CVS: S1-S2 positive, no murmurs or gallops, tachycardia, left-sided Port-A-Cath Abdomen: Soft, nontender, nondistended, positive bowel sounds x4 Extremities: +2 pulses bilaterally radialis/ dorsalis pedis, no cyanosis, no edema, sclerodactyly bilateral index fingers Neuro: Awake alert oriented x3 Psych: Normal mood and affect G/U: No Renteria Skin: no rashes, warm and dry Lymphatic: no cervical or axillary lymphadenopathy Results & Data Results & Data Vital Signs (Past 12 Hours) Vital Signs Temp Pulse Resp BP Pulse Ox Pulse Ox O2 Del Method 12/16/24 07:52 36.3 C L 122 H 17 118/69 94 Room Air 12/16/24 06:00 92 12/16/24 05:27 37.6 C 12/16/24 02:35 38.0 C H 125 H 24 121/59 L 92 Room Air 12/15/24 23:12 36.7 C 95 H 20 98/55 L 93 Room Air O2 Del Method 12/16/24 07:52 12/16/24 06:00 Room Air 12/16/24 05:27 12/16/24 02:35 12/15/24 23:12 Laboratory Results 12/16/24 05:39 12/16/24 05:39 PG Care Time/CCT Total # of Minutes Spent Total Time Spent with Patient: Total time spent is greater than 50% in coordination of care (as documented) at patient's floor/unit and/or counseling patient: Coding Level of Care Code 71758 SUB INP/OBS CARE 2/35MIN Diagnoses TACO (transfusion associated circulatory overload) E87.71 Acute respiratory failure with hypoxia and hypercapnia J96.01; J96.02 Lymphoma C85.90 Lymphoma type: unspecified type Systemic sclerosis M34.9 ILD (interstitial lung disease) J84.9 Multiple pulmonary nodules R91.8 LAD (lymphadenopathy), mediastinal R59.0
[2024-12-16] MEDS: OPTIRAY 320 100ml IV ONE (09:30)
--- NOTE | 2024-12-16 10:00 | CT Scan Report ---
EXAM: CT Abdomen and Pelvis With Intravenous Contrast INDICATION: Lymphoma. Fever. TECHNIQUE: Axial computed tomography images of the abdomen and pelvis with intravenous contrast. Sagittal and coronal reformatted images were created and reviewed. This CT exam was performed using one or more of the following dose reduction techniques: automated exposure control, adjustment of the mA and/or kV according to patient size, and/or use of iterative reconstruction technique. CONTRAST: 93ml of Optiray 320 was administered intravenously. COMPARISON: 09/19/2022 FINDINGS: Limitations: None. Lung bases: Stable prominent pulmonary vascular markings, septal thickening and interstitial and parenchymal scarring right greater than left. Pleural space: Small layering right pleural effusion similar to before. There is a new small layering left pleural effusion. Heart: No abnormality noted. Mediastinum: No abnormality noted. ABDOMEN: Liver: Normal size and contour. Hypodense typical of steatosis. No mass or ductal dilation. Gallbladder and bile ducts: No calcified stones or surrounding fluid. Pancreas: Homogeneous enhancement. No mass, inflammation or ductal dilation. Spleen: The spleen is enlarged measuring 13 cm AP diameter. Adrenals: No significant abnormality noted. Kidneys and ureters: Simple right renal cysts. No follow-up of these simple cysts is necessary. The left kidney appears normal. Stomach and bowel: There are multiple prominent fluid and air-filled small bowel loops with multiple foci of eccentric mucosal thickening. Distal small bowel loops relatively collapsed. Transition point is likely in the left mid pelvis but not distinctly defined. There is scattered stool in the colon. There is some irregular nodular thickening of the ascending colonic mucosa. PELVIS: Appendix: No findings to suggest acute appendicitis. Bladder: No filling defects to suggest mass or large stone. No inflammation. Reproductive: No abnormalities noted. ABDOMEN and PELVIS: Intraperitoneal space: No free air. No significant fluid collection. Bones/joints: Degenerative changes noted throughout the spine. No acute osseous abnormality seen. Old right anterior rib fracture. Soft tissues: No significant abnormality noted. Vasculature: Atherosclerotic calcification of the aorta and branches. No aneurysm. Lymph nodes: There is now extensive adenopathy in the retroperitoneum and upper abdomen. Large retroperitoneal verito mass encases and compresses the left renal artery. The mass measures 5.4 cm AP by 2.3 cm transverse by 5.2 cm long. There are large portacaval nodes measuring up to 3.2 cm short axis dimension. There is a large node in the midline at the bifurcation of the celiac trunk with short axis dimension of 2.5 cm. There are multiple enlarged mesenteric nodes in the abdomen and extending preferentially to the right pelvis measuring up to 3.4 cm short axis dimension. IMPRESSION: 1. Extensive mesenteric, upper abdominal and retroperitoneal adenopathy typical of lymphoma. 2. Proximal and mid small bowel obstruction with multiple foci of mucosal studding typical of tumor involvement obstruction is partial or early with transition point likely in the left pelvis. 3. Trace pleural effusions noted. 4. Fatty liver and splenomegaly. ACT 112: Negative or not required by law. Electronically signed by Deonna Bruno 12-16-2024 09:59 AM
--- NOTE | 2024-12-16 12:07 | Hospitalist Progress Note ---
Date of Service December 16, 2024 Assessment & Plan (1) Acute respiratory failure with hypoxia and hypercapnia: Plan: developed such early AM of 12/12/24 likely was 2nd to TACO resp failure resolved fully off O2 passed ambulatory 2-step O2 test today s/p multiple doses of IV lasix since the event with improvement in pulm edema CTA chest 12/13/24 - no PEs, no pneumonia; evidence of volume overload on CT appreciate pulmonary assistance lasix prn moving forward especially following PRBCs (2) TACO (transfusion associated circulatory overload): Plan: cause of #1 above with future transfusions will need lasix following such TACO fully resolved (3) Hyponatremia: Plan: Na level 126 upon admission 130 today in retrospect some of the hyponatremia may have been due to volume overload TSH wnl cortisol level acceptable repeat BMP am (4) Hypomagnesemia: Plan: repleted resolved (5) Fever with leukocytosis and leukocyte count less than 20,000: Plan: 2nd to lymphoma which is progressive on CT a/p extensive infectious w/u -- u/a negative admit cxr negative resp BioFire negative admit blood cx's negative lyme negative MRSA swab negative repeat COVID/flu/RSV negative CTA chest w/o pneumonia or PE blood cx's - repeat - also negative (6) Transaminitis: Plan: resolved etiology was uncertain but due to hepatic congestion from volume overload? ast/alt elevation resolved with diuresis (7) GI bleed: Plan: prior h/o GAVE active GI bleed was suspected at time of admission due to dark/melena stools seen at home recently GI consulted; they were planning EGD but this was deferred in light of #1 above s/p 2 units packed RBCs this admission of note - pt had received 4 units PRBCs over the past 2 weeks as outpatient (managed by Dr Plummer) if any previous GI bleeding likely has stopped diet as tolerated fecal occult if any further stool CBC am (8) Lymphoma: Plan: recent diagnosis of such follows with Dr Logan Plummer - [facility] oncology was to start chemotherapy this past week but missed such due to this admission after CT a/p results returned today I contacted Dr Park, on-call oncology for [facility] we discussed the results he asked for Ms Flood to remain hospitalized until tomorrow at that time will contact Dr Plummer for guidance (receive first chemo in the hospital? discharge the patient then go straight to the clinic for outpatient chemo?) (9) Elevated troponin: Plan: present on admission thought 2nd to myocardial demand ischemia in setting of anemia, sinus tachycardia, fever, etc. troponin worsened on 12/12 -- 2nd to #1 echo from 12/11 -- EF 50-55%, normal LV wall motion (10) CREST (calcinosis, Raynaud's phenomenon, esophageal dysfunction, sclerodactyly, telangiectasia): Plan: with baseline ILD typically on cellcept BID for such I corresponded with Dr Plummer from heme/onc 12/11 - he prefers cellcept is held for now (11) Tachycardia: Plan: sinus tach only the entire stay no SVT, a.fib, a.flutter, etc. TSH wnl no PE on CTA chest no pain or anxiety anemia, chronic ILD, fevers, SIRS - likely all to blame echo with preserved EF 50-55% but EF is low-normal started metoprolol 12.5mg BID and titrated since then now on 50mg BID tachycardia does improve with transfusion follow on monitors (12) ILD (interstitial lung disease): Plan: known diagnosis passed 2-step ambulatory o2 test (13) TRALI (transfusion related acute lung injury): Plan: ruled out Plan Chronic stable diagnoses: HLD - cont statin neuropathy - continue gabapentin hypothyroidism - continue levothyroxine; TSH wnl HTN - hold valsartan; use metoprolol in leni Elevated INR - liver dysfunction in the setting of #1, #2? other? most recent INR - 1.3) recheck INR with LFTs in am tomorrow thrombocytosis - suspect reactive to #1 - improved/resolving R flank pain/R lower costal pain posteriorly -- suspect 2nd to retroperitoneal lymphadenopathy; nothing on CTA chest that would explain the pain treat pain updated at bedside 12/12, 12/14, 12/15, 12/16 passed PT/OT evals IV venofer 300mg x [address] Plummer from [facility] heme/onc first thing in am tomorrow care d/w Dr Park from [facility] heme/onc today Admission and Anticipated Discharge Date Admission Date: December 10, 2024 Subjective overnight no issues has had multiple bowel movements no abd pain, nausea or emesis no dyspnea or cough feels good today at bedside we discussed her CT a/p results showing progressive lymphoma asks about receiving iron IV (was scheduled to get such every week x 4 weeks as outpatient) tele - sinus tach low 100s Review of Systems Review of Systems: gen - ongoing fevers cv - no chest pain pulm - no dyspnea GI - no N/V Physical Exam Physical Exam: gen - looks good, NAD, sitting in chair neck - no JVD mouth - MMM; no thrush heart - remains tachy low 100s, s1 s2, no murmur lungs - minimal rales b/l bases abd - soft NT ND BS+ ext - no edema, pulses 2+ b/l psych - a/o x 3 Results & Data Results & Data Vital Signs (Past 12 Hours) Vital Signs Temp Pulse Resp BP Pulse Ox Pulse Ox O2 Del Method 12/16/24 11:58 36.9 C 107 H 18 109/60 94 Room Air 12/16/24 07:52 36.3 C L 122 H 17 118/69 94 Room Air 12/16/24 06:00 92 12/16/24 05:27 37.6 C 12/16/24 02:35 38.0 C H 125 H 24 121/59 L 92 Room Air O2 Del Method 12/16/24 11:58 12/16/24 07:52 12/16/24 06:00 Room Air 12/16/24 05:27 12/16/24 02:35 Laboratory Results Laboratory Results - last 24 hr 12/15/24 12/16/24 14:58 05:39 WBC 12.75 H RBC 3.43 L Hgb 9.3 L Hct 29.1 L MCV 84.8 MCH 27.1 MCHC 32.0 RDW Std Deviation 50.7 H RDW Coeff of Colette 16.4 H Plt Count 475 H MPV 9.1 L Sodium 130 L Potassium 4.2 Chloride 93 L Carbon Dioxide 30 Anion Gap 7 BUN 11 Creatinine 0.62 Est Cr Clr Drug Dosing 72.7 eGFR 93.97 BUN/Creatinine Ratio 17.7 Glucose 100 H Calcium 8.7 Magnesium 1.7 Blood Type O Positive Antibody Screen NEGATIVE Crossmatch See Detail Diagnostic Findings Abdomen/Pelvis CT 12/16/24 08:06 EXAM: CT Abdomen and Pelvis With Intravenous Contrast INDICATION: Lymphoma. Fever. TECHNIQUE: Axial computed tomography images of the abdomen and pelvis with intravenous contrast. Sagittal and coronal reformatted images were created and reviewed. This CT exam was performed using one or more of the following dose reduction techniques: automated exposure control, adjustment of the mA and/or kV according to patient size, and/or use of iterative reconstruction technique. CONTRAST: 93ml of Optiray 320 was administered intravenously. COMPARISON: 09/19/2022 FINDINGS: Limitations: None. Lung bases: Stable prominent pulmonary vascular markings, septal thickening and interstitial and parenchymal scarring right greater than left. Pleural space: Small layering right pleural effusion similar to before. There is a new small layering left pleural effusion. Heart: No abnormality noted. Mediastinum: No abnormality noted. ABDOMEN: Liver: Normal size and contour. Hypodense typical of steatosis. No mass or ductal dilation. Gallbladder and bile ducts: No calcified stones or surrounding fluid. Pancreas: Homogeneous enhancement. No mass, inflammation or ductal dilation. Spleen: The spleen is enlarged measuring 13 cm AP diameter. Adrenals: No significant abnormality noted. Kidneys and ureters: Simple right renal cysts. No follow-up of these simple cysts is necessary. The left kidney appears normal. Stomach and bowel: There are multiple prominent fluid and air-filled small bowel loops with multiple foci of eccentric mucosal thickening. Distal small bowel loops relatively collapsed. Transition point is likely in the left mid pelvis but not distinctly defined. There is scattered stool in the colon. There is some irregular nodular thickening of the ascending colonic mucosa. PELVIS: Appendix: No findings to suggest acute appendicitis. Bladder: No filling defects to suggest mass or large stone. No inflammation. Reproductive: No abnormalities noted. ABDOMEN and PELVIS: Intraperitoneal space: No free air. No significant fluid collection. Bones/joints: Degenerative changes noted throughout the spine. No acute osseous abnormality seen. Old right anterior rib fracture. Soft tissues: No significant abnormality noted. Vasculature: Atherosclerotic calcification of the aorta and branches. No aneurysm. Lymph nodes: There is now extensive adenopathy in the retroperitoneum and upper abdomen. Large retroperitoneal verito mass encases and compresses the left renal artery. The mass measures 5.4 cm AP by 2.3 cm transverse by 5.2 cm long. There are large portacaval nodes measuring up to 3.2 cm short axis dimension. There is a large node in the midline at the bifurcation of the celiac trunk with short axis dimension of 2.5 cm. There are multiple enlarged mesenteric nodes in the abdomen and extending preferentially to the right pelvis measuring up to 3.4 cm short axis dimension. IMPRESSION: 1. Extensive mesenteric, upper abdominal and retroperitoneal adenopathy typical of lymphoma. 2. Proximal and mid small bowel obstruction with multiple foci of mucosal studding typical of tumor involvement obstruction is partial or early with transition point likely in the left pelvis. 3. Trace pleural effusions noted. 4. Fatty liver and splenomegaly. ACT 112: Negative or not required by law. Electronically signed by Deonna Bruno 12-16-2024 09:59 AM PG Care Time/CCT Total # of Minutes Spent Total Time Spent with Patient: Total time spent is greater than 50% in coordination of care (as documented) at patient's floor/unit and/or counseling patient: Coding Level of Care Code 24792 SUB INP/OBS CARE 3/50MIN Diagnoses Acute respiratory failure with hypoxia and hypercapnia J96.01; J96.02 TACO (transfusion associated circulatory overload) E87.71 Hyponatremia E87.1 Hypomagnesemia E83.42 Fever with leukocytosis and leukocyte count less than 20,000 D72.829 Transaminitis R74.01 GI bleed K92.2 Lymphoma C85.90 Elevated troponin R79.89 CREST (calcinosis, Raynaud's phenomenon, esophageal dysfunction, sclerodactyly, telangiectasia) M34.1 Tachycardia R00.0 ILD (interstitial lung disease) J84.9 TRALI (transfusion related acute lung injury) J95.84
[2024-12-16] MEDS: IRON SUCROSE 300 MG in SODIUM CHLORIDE 0.9% 250 ML IV ONE (13:05)
[2024-12-16] MEDS: ALTEPLASE, RECOMBINANT 1 MG/ML 2ML VIAL INSTIL ONE (20:07)
[2024-12-16] MEDS: MELATONIN 3 MG TAB PO PRN (21:26)
[2024-12-17 06:50] LABS: Basophils # (auto) 0.03 K/uL (0.00-0.20); Basophils % (auto) 0.3 %; Eosinophils # (auto) 0.02 K/uL (0.00-0.50); Eosinophils % (auto) 0.2 %; Hematocrit (blood only) 23.1 % (37.0-47.0); Hemoglobin 7.4 g/dl (12.0-16.0); Immature Granulocytes # (auto) 0.23 K/uL (0.01-0.20); Lymphocytes # (auto) 0.62 K/uL (1.20-3.40); Lymphocytes % (auto) 5.5 %; Mean Corpuscular Volume 84.3 fL (80.0-100.0); Mean Platelet Volume 9.4 fL (9.4-12.4); Monocytes # (auto) 1.92 K/uL (0.11-0.59); Monocytes % (auto) 16.9 %; Neutrophils # (auto) 8.53 K/uL (1.40-6.50); Neutrophils % (auto) 75.1 %; Platelet Count 424 K/uL (130-400); RDW Coefficient of Variation 16.5 % (11.5-14.5); RDW Standard Deviation 50.9 fL (36.4-46.3); Red Blood Count 2.74 M/uL (4.20-5.40); White Blood Count 11.35 K/ul (4.8-10.8)
[2024-12-17 07:09] LABS: Albumin Level 2.3 gm/dl (3.4-5.0); BUN Creatinine Ratio 16.1 (10-20); Bilirubin Direct 0.1 mg/dl (0-0.2); Bilirubin,Total 0.4 mg/dl (0.2-1.0); Calcium 8.4 mg/dl (8.6-10.3); Creatinine Clr Calc Pharmacy 80.5 ml/min; Potassium 3.9 mmol/L (3.5-5.1); Total Protein 6.1 gm/dl (6.0-8.3)
[2024-12-17 07:15] LABS: INR 1.3 (0.9-1.1); Prothrombin Time 13.4 Seconds (9.0-12.0)
[2024-12-17 07:24] LABS: Polychromasia 1+; Toxic Vacuolation 1+
[2024-12-17 08:16] VITALS: RESP 18
--- NOTE | 2024-12-17 14:35 | XRay Report ---
XR chest 2V PA/lateral CLINICAL HISTORY: new cough, recent pulm edema; h/o ILD COMPARISON STUDY: Chest radiograph December 12, 2024. Chest CT December 13, 2024. FINDINGS: Left internal jugular [id number] is in place. Elevation of the right hemidiaphragm is un changed. Trace bilateral pleural effusions have decreased in size since prior exam. Cardiac mediastin al silhouette is unremarkable. Interstitial thickening in bilateral airspace opacities have significa ntly improved. There is mild residual interstitial thickening. Healing anterior right sixth rib fract ure is present. IMPRESSION: 1. No consolidation to suggest pneumonia. 2. Significant improvement in interstitial thickening in bilateral airspace opacities shown on prior chest radiograph and chest CT. 3. Trace bilateral pleural effusions, decreased in size since prior exam. ACT 112: Negative or not required by law. Electronically signed by: Delon Thompson M.D. 12/17/2024 2:33 PM
[2024-12-17 15:11] VITALS: BP 112/61; TEMP 100.6; O2SAT 96
--- NOTE | 2024-12-17 16:27 | Discharge Summary ---
Discharge Summary Date of Service December 17, 2024 Principal Dx & Hospital Course #1 = Principal Diagnosis (1) Acute respiratory failure with hypoxia and hypercapnia: developed such early AM of 12/12/24 likely was 2nd to TACO resp failure resolved fully off O2 passed ambulatory 2-step O2 test today s/p multiple doses of IV lasix since the event with improvement in pulm edema CTA chest 12/13/24 - no PEs, no pneumonia; evidence of volume overload on CT appreciate pulmonary assistance lasix prn moving forward especially following PRBCs (2) TACO (transfusion associated circulatory overload): cause of #1 above with future transfusions will need lasix following such TACO fully resolved (3) Hyponatremia: Na level 126 upon admission 130 today in retrospect some of the hyponatremia may have been due to volume overload TSH wnl cortisol level acceptable repeat BMP am (4) Hypomagnesemia: repleted resolved (5) Fever with leukocytosis and leukocyte count less than 20,000: 2nd to lymphoma which is progressive on CT a/p extensive infectious w/u -- u/a negative admit cxr negative resp BioFire negative admit blood cx's negative lyme negative MRSA swab negative repeat COVID/flu/RSV negative CTA chest w/o pneumonia or PE blood cx's - repeat - also negative (6) Transaminitis: resolved etiology was uncertain but due to hepatic congestion from volume overload? ast/alt elevation resolved with diuresis (7) GI bleed: prior h/o GAVE active GI bleed was suspected at time of admission due to dark/melena stools seen at home recently GI consulted; they were planning EGD but this was deferred in light of #1 above s/p 2 units packed RBCs this admission of note - pt had received 4 units PRBCs over the past 2 weeks as outpatient (managed by Dr Plummer) if any previous GI bleeding likely has stopped diet as tolerated fecal occult if any further stool CBC am (8) Lymphoma: recent diagnosis of such follows with Dr Logan Plummer - [facility] was to start chemotherapy this past week but missed such due to this admission after CT a/p results returned today I contacted Dr Park, on-call oncology for [facility] we discussed the results he asked for Ms Flood to remain hospitalized until tomorrow at that time will contact Dr Plummer for guidance (receive first chemo in the hospital? discharge the patient then go straight to the clinic for outpatient chemo?) (9) Elevated troponin: present on admission thought 2nd to myocardial demand ischemia in setting of anemia, sinus tachycardia, fever, etc. troponin worsened on 12/12 -- 2nd to #1 echo from 12/11 -- EF 50-55%, normal LV wall motion (10) CREST (calcinosis, Raynaud's phenomenon, esophageal dysfunction, sclerodactyly, telangiectasia): with baseline ILD typically on cellcept BID for such I corresponded with Dr Plummer from heme/onc 12/11 - he prefers cellcept is held for now (11) Tachycardia: sinus tach only the entire stay no SVT, a.fib, a.flutter, etc. TSH wnl no PE on CTA chest no pain or anxiety anemia, chronic ILD, fevers, SIRS - likely all to blame echo with preserved EF 50-55% but EF is low-normal started metoprolol 12.5mg BID and titrated since then now on 50mg BID tachycardia does improve with transfusion follow on monitors (12) ILD (interstitial lung disease): known diagnosis passed 2-step ambulatory o2 test (13) TRALI (transfusion related acute lung injury): ruled out Plan Chronic stable diagnoses: HLD - cont statin neuropathy - continue gabapentin hypothyroidism - continue levothyroxine; TSH wnl HTN - hold valsartan; use metoprolol in leni Elevated INR - liver dysfunction in the setting of #1, #2? other? most recent INR - 1.3) recheck INR with LFTs in am tomorrow thrombocytosis - suspect reactive to #1 - improved/resolving R flank pain/R lower costal pain posteriorly -- suspect 2nd to retroperitoneal lymphadenopathy; nothing on CTA chest that would explain the pain treat pain updated at bedside 12/12, 12/14, 12/15, 12/16 passed PT/OT evals IV venofer 300mg x [address] Plummer from [facility] first thing in am tomorrow care d/w [facility] Park [facility] today Admission HPI Per Admitting Provider Patient is a 74-year-old female with past medical history of crest syndrome, ILD, hypothyroidism, GERD, recently diagnosed mesenteric lymphoma supposed to start chemotherapy tomorrow 12/11. She was referred by her oncologist, Dr. Plummer due to abnormal blood work. Patient was found to have electrolyte abnormalities of hyponatremia and hypomagnesia. She also has mild leukocytosis with a low- grade fever as well as transaminitis. Patient seen at bedside. She stated that she was told to come in by her oncologist but was unsure as to why. She has been relatively asymptomatic. She stated she has not had any fevers recently, takes her temperature daily. She did have a low-grade fever in the ED but does not have chills or hot flashes. Regarding her hyponatremia, patient has been drinking a lot of water; suspect secondary to crest syndrome and esophagitis. She stated she has a chronic GI bleed, chronic anemia, follows with GI. She had a colonoscopy October 2023 which showed internal hemorrhoids and diverticulosis without diverticulitis. Recent EGD July 2024 showed diffuse congestion, erythema, and vascular pattern and entire antrum, no active bleeding seen, biopsy revealed mild chronic gastritis. She stated that she is to have repeat colonoscopy and EGD soon, has not yet set this up. Patient stated she was to have an iron transfusion today because she had an elevated temperature, but recent iron studies show elevated iron and transfer to mobile. Patient does endorse chronic melena, relatively unchanged. She also endorses a 30 pound weight loss in the past few months but states her appetite is stable. She also endorses a chronic cough for the past few months, relatively unchanged. Patient denies fever, chills, dizziness, lightheadedness, rhinorrhea, sore throat, dyspnea, chest pain, abdominal pain, nausea, vomiting, diarrhea, dysuria, hematuria, edema, numbness, tingling, muscle weakness, muscle cramps. She does not use nicotine products or drink alcohol. She lives at home with her . She denies past history of diabetes or previous VTE. She previously used oxygen at baseline but does not need it or use it any longer. She did take her a.m. medications but is due for her evening medications which include CellCept. She wishes to be DNR/DNI at this time. Handoff from the ED provider stated that they did not speak with [facility]. Hospitalist team will hold CellCept for this evening, daytime team to reach out to [facility] oncologist to see if patient should continue CellCept dur ing hospitalization, and if [facility]ology would like to evaluate patient during hospital stay. Discharge Exam gen - looks good, NAD, sitting in chair neck - no JVD mouth - MMM; no thrush heart - remains tachy low 100s, s1 s2, no murmur lungs - minimal rales b/l bases abd - soft NT ND BS+ ext - no edema, pulses 2+ b/l psych - a/o x 3 Discharge Plan Discharge Items Patient Disposition: Home - Self-Care Reason For Visit: HYPONATREMIA, ANEMIA/GI BLEED Discharge Diagnosis: 1. hyponatremia (low sodium level) - improved; discharge sodium level 131 2. anemia - multifactorial causes including lymphoma, possible gastrointestinal bleeding, etc; discharge hemoglobin level 7.4 3. low-grade fevers - likely due to lymphoma 4. lymphoma 5. shortness of breath due to volume overload (fluid in the lungs); fluid build-up was due to multiple blood transfusions 6. interstitial lung disease 7. tachycardia (fast heart rate) - chronic, multifactorial causes 8. question of gastrointestinal bleeding - last several stools were brown; uncertain if there has been any bleeding Activity: As commented below Activity Comment: plan to take it easy/light activities only Non-emergency contact: Primary Care Provider and Oncologist Call non-emergency contact if: you have any medication questions, your symptoms worsen, your pain is not controlled and your pain is worsening Follow-up/Referrals: Stephany Gilbert CRNP [Primary Care Provider] - Logan Plummer MD [Surgeon] - 12/18/24 8:00 am (Oncology follow up) Diet: Heart Healthy Addtl Attending Provider Instructions: Mrs Flood, You were hospitalized due to abnormal labs, fevers, and shortness of breath. Shortness of breath was found to be from volume overload/fluid in the lungs. It is likely that the numerous blood transfusions you have had over the last few weeks led to this fluid build-up. You improved with IV & oral diuretics. Oxygen was weaned off, and you do not need any oxygen at home based on a walking oxygen test taken. You underwent extensive testing because of your fevers. You had CT scans of the chest, abdomen, and pelvis. These scans showed progressive lymphoma but no pneumonia or other causes of fever. Respiratory panel was negative for COVID, flu, RSV, and numerous other viruses. Lyme testing was negative. Blood cultures were negative (no bloodstream infection found). Repeat chest x-ray on day of discharge showed resolution of the previous fluid build-up. No pneumonia was seen either. During the stay you needed 2 units of blood. Your hemoglobin on day of discharge is 7.4. The abnormal labs seen (low magnesium, low sodium, etc) all improved while here. Recommendations - 1. stop your valsartan 2. HOLD your cellcept (mycophenalate) 3. start metoprolol tartrate 50mg twice daily, first dose TONIGHT 4. for cough - * benzonatate 100-200mg every 8 hours as needed * you can also take elll-dfb-pflddpr mucinex up to 1200mg twice daily as needed 5. for sleep - * jspo-dlu-svywapp melatonin, 3 to 6mg about 30-60 minutes prior to bedtime 6. if you need a blood transfusion, unless otherwise directed by Dr Plummer, please take a furosemide water pill as well as a potassium supplement by mouth immediately following the transfusion It is possible that Dr Plummer gives you IV furosemide; if he does such then the oral furosemide likely would be deferred Please talk to Dr Plummer about this if you need blood as an outpatient Follow-up - see Dr Plummer TOMORROW morning at 8am Return to [facility] if - * you have fever over 101 degrees * you have worsening shortness of breath * you have chest pains * you have severe diarrhea (more than 3 liquid stools in 24 hours) * you have worsening abdominal pain * you have severe nausea and/or vomiting * any other concerns It was our pleasure to care for you! -Dr Chavez Pending Studies at Discharge: No Stand-Alone Forms: My [facility] GIVTED, Smoking Cessation Medications and DC Order Prescriptions: New melatonin 3 mg Tablet 3 - 6 mg PO HS PRN (Reason: sleep) Qty: 1 0RF Rx Instructions: purchase [id number]-svu-gkotssb metoprolol tartrate 50 mg Tablet 50 mg PO BID Qty: 60 2RF benzonatate 100 mg capsule 100 - 200 mg PO TID PRN (Reason: cough) Qty: 30 0RF furosemide [Lasix] 40 mg tablet 40 mg PO DAILY PRN (Reason: post-transfusion or edema/swelling) Qty: 20 0RF potassium chloride 10 mEq tablet extended release 10 meq PO DAILY PRN (Reason: only when you take furosemide) Qty: 20 0RF Continued desoximetasone 0.25 % ointment 1 applic topical DAILY Qty: 60 0RF Rx Instructions: Apply to areas of hands at bedtime x 2 weeks as needed for flaring. baclofen 10 mg tablet See Rx Instructions PO .COMPLEX Qty: 270 1RF Rx Instructions: 1 tab every AM, 2 tabs every HS orally for leg cramping; pantoprazole 40 mg tablet,delayed release (DR/EC) 40 mg PO BID Qty: 180 1RF duloxetine 30 mg capsule,delayed release(DR/EC) 30 mg PO DAILY Qty: 90 1RF calcium carbonate 600 mg calcium (1,500 mg) tablet 600 mg PO QAM cyanocobalamin (vitamin B-12) 1,000 mcg tablet 1,000 mcg PO .tuesday albuterol sulfate 90 mcg/actuation HFA aerosol inhaler 2 puff inhalation Q6H PRN (Reason: Shortness Of Breath Or Wheezing) Qty: 18 3RF rosuvastatin 10 mg tablet 10 mg PO HS ascorbic acid (vitamin C) [Vitamin C] 1,000 mg Tablet 1 g PO QAM levothyroxine 25 mcg tablet 25 mcg PO DAILYBB cholecalciferol (vitamin D3) [Vitamin D3] 25 mcg (1,000 unit) Tablet 25 mcg PO QAM omega-3 fatty acids 500 mg Capsule 500 mg PO QAM allopurinol 300 mg Tablet 300 mg PO DAILY Held mycophenolate mofetil [CellCept] 500 mg tablet 1,000 mg PO .ON HOLD Hold Instructions: hold unless Dr Plummer advises to resume such Discontinued (DME) Oxygen Home Liters Per Minute See Rx Instructions .Route Qty: 1 0RF Rx Instructions: D/C HOME OXYGEN gabapentin 800 mg tablet 800 mg PO UD Rx Instructions: take 1 tablet in morning and 2 tablets at night valsartan 80 mg tablet 80 mg PO QAM Discharge Orders: Discharge Order (Routine); Ordered 12/17/24 Ordered By: Ricky Chavez Admission Data Admit Date/Time: 12/10/24 20:18 Attending Provider: Ricky Chavez Admit Provider: Mahesh Kenyon Primary Care Provider: Stephany Gilbert Other Providers: Mahesh Kenyon; Yaquelin Fischer Jr; Nohemi Mello Hospital Stay Data Consultations 12/10/24 20:05 ED Decision to Admit Stat 12/11/24 08:00 Consult Gastroenterology Routine 12/12/24 09:07 Consult Pulmonology Routine Procedures Performed Operation Date: 12/12/24 16:45 <No data on this case meets the specified criteria> Diagnostic Imagining Performed 12/13/24 16:37 CT angio chest PE protocol Routine 12/16/24 08:06 CT Abd and Pelvis [CT abd pelvis IV con only] Routine Pending Results Patient Have Any Pending Studies at Discharge: No Discharge Instructions Given to Patient (Per Discharging Provider) Mrs Flood, Morgan were hospitalized due to abnormal labs, fevers, and shortness of breath. Shortness of breath was found to be from volume overload/fluid in the lungs. It is likely that the numerous blood transfusions you have had over the last few weeks led to this fluid build-up. You improved with IV & oral diuretics. Oxygen was weaned off, and you do not need any oxygen at home based on a walking oxygen test taken. You underwent extensive testing because of your fevers. You had CT scans of the chest, abdomen, and pelvis. These scans showed progressive lymphoma but no pneumonia or other causes of fever. Respiratory panel was negative for COVID, flu, RSV, and numerous other viruses. Lyme testing was negative. Blood cultures were negative (no bloodstream infection found). Repeat chest x-ray on day of discharge showed resolution of the previous fluid build-up. No pneumonia was seen either. During the stay you needed 2 units of blood. Your hemoglobin on day of discharge is 7.4. The abnormal labs seen (low magnesium, low sodium, etc) all improved while here. Recommendations - 1. stop your valsartan 2. HOLD your cellcept (mycophenalate) 3. start metoprolol tartrate 50mg twice daily, first dose TONIGHT 4. for cough - * benzonatate 100-200mg every 8 hours as needed * you can also take rble-owe-lfclqsa mucinex up to 1200mg twice daily as needed 5. for sleep - * dnwi-zpy-jkctqxz melatonin, 3 to 6mg about 30-60 minutes prior to bedtime 6. if you need a blood transfusion, unless otherwise directed by Dr Plummer, please take a furosemide water pill as well as a potassium supplement by mouth immediately following the transfusion It is possible that Dr Plummer gives you IV furosemide; if he does such then the oral furosemide likely would be deferred Please talk to Dr Plummer about this if you need blood as an outpatient Follow-up - see Dr Plummer TOMORROW morning at 8am Return to [facility] if - * you have fever over 101 degrees * you have worsening shortness of breath * you have chest pains * you have severe diarrhea (more than 3 liquid stools in 24 hours) * you have worsening abdominal pain * you have severe nausea and/or vomiting * any other concerns It was our pleasure to care for you! -Dr Chavez Coding Diagnoses Acute respiratory failure with hypoxia and hypercapnia J96.01; J96.02 TACO (transfusion associated circulatory overload) E87.71 Hyponatremia E87.1 Hypomagnesemia E83.42 Fever with leukocytosis and leukocyte count less than 20,000 D72.829 Transaminitis R74.01 GI bleed K92.2 Lymphoma C85.90 Elevated troponin R79.89 CREST (calcinosis, Raynaud's phenomenon, esophageal dysfunction, sclerodactyly, telangiectasia) M34.1 Tachycardia R00.0 ILD (interstitial lung disease) J84.9 TRALI (transfusion related acute lung injury) J95.84
[2024-12-17 17:56] VITALS: PULSE 119
== END 2024-12-17 17:56 | disposition home or self-care (01) | DRG 640 ==
LOC: ED 15:49 → 2N 20:18 → SUATTDRO 20:18 → 2N 23:16 → 2E 12-12 05:02

== ENCOUNTER 2025-02-26 10:03 | Inpatient (IN) ==
--- NOTE | 2025-02-26 10:49 | XRay Report ---
XR chest 1V portable CLINICAL HISTORY: Sepsis COMPARISON STUDY: 12/17/2024 FINDINGS: Stable chest port. Heart size and pulmonary vasculature are normal. There is an interval sm all area of patchy opacity lateral right lung base. No other consolidation or pleural effusion. No pn eumothorax. IMPRESSION: Early pneumonia right lung base. ACT 112: Negative or not required by law. Electronically signed by: Aramis Martinez M.D. 02/26/2025 10:47 AM
[2025-02-26] MEDS: SODIUM CHLORIDE 0.9% 1,000 ML IV SCH (11:31)
[2025-02-26 11:33] LABS: Hematocrit (blood only) 22.2 % (37.0-47.0); Hemoglobin 7.3 g/dl (12.0-16.0); Mean Corpuscular Hemoglobin 29.1 pg (25.0-34.0); Mean Corpuscular Hgb Conc 32.9 g/dL (32.0-36.0); Mean Corpuscular Volume 88.4 fL (80.0-100.0); Platelet Count 185 K/uL (130-400); RDW Coefficient of Variation 18.9 % (11.5-14.5); RDW Standard Deviation 61.1 fL (36.4-46.3); Red Blood Count 2.51 M/uL (4.20-5.40)
[2025-02-26] MEDS: CEFEPIME 2000MG 2,000 MG/20 ML SYR IV STA (11:39)
[2025-02-26] MEDS: ACETAMINOPHEN 500 MG TAB PO STA (11:39)
[2025-02-26 11:41] LABS: Albumin Level 3.2 gm/dl (3.4-5.0); Bilirubin Direct 0.2 mg/dl (0-0.2); Bilirubin,Total 0.7 mg/dl (0.2-1.0); Calcium 8.2 mg/dl (8.6-10.3); Magnesium 1.4 mg/dl (1.7-2.4)
[2025-02-26 11:46] LABS: Basophils # (auto) 0.01 K/uL (0.00-0.20); Basophils % (auto) 1.7 %; Eosinophils # (auto) 0.06 K/uL (0.00-0.50); Eosinophils % (auto) 10.2 %; Immature Granulocytes # (auto) 0.01 K/uL (0.01-0.20); Immature Granulocytes % (auto) 1.7 %; Lymphocytes # (auto) 0.25 K/uL (1.20-3.40); Lymphocytes % (auto) 42.4 %; Monocytes # (auto) 0.22 K/uL (0.11-0.59); Monocytes % (auto) 37.3 %; Neutrophils # (auto) 0.04 K/uL (1.40-6.50); Neutrophils % (auto) 6.7 %; Troponin I High Sensitivity 18.4 pg/ml (0-14); White Blood Count 0.59 K/ul (4.8-10.8)
[2025-02-26 11:47] LABS: Creatinine Clr Calc Pharmacy 90.2 ml/min; Total Protein 5.9 gm/dl (6.0-8.3)
--- NOTE | 2025-02-26 11:51 | Emergency Department Note ---
Impression & Plan Neutropenic fever, Pneumonia ED Provider Note CHIEF COMPLAINT: Fever, abnormal blood work HISTORY OF PRESENT ILLNESS: This 74-year-old female with past medical history of active B-cell lymphoma, on chemotherapy through Dr. Plummer with hematology/oncology at [facility], presents to the emergency department with complaints of shortness of breath with exertion. She states this is not unusual for her. She followed up with her oncologist today for a routine appointment, was noted to be slightly febrile. She was told that her laboratory work is abnormal, WBC was 0.52, hemoglobin was 8 and potassium is 3.1. also relates that her magnesium was low. She has been having some chills but otherwise has no complaints. Patient states she is lost about 50 pounds through the treatment however has been holding steady for several weeks. REVIEW OF SYSTEMS: A review of systems was performed with positives and pertinent negatives listed in the history of present illness. 10 systems were reviewed and are otherwise negative. ALLERGIES: see below MEDICATIONS: see below PMH: see below SOCIAL HISTORY: see below DDx: Febrile neutropenia, pneumonia, viral syndrome, UTI, dehydration, electrolyte abnormality among others. PHYSICAL EXAM: Vital signs reviewed. Noted to be febrile at 38.4 General: Chronically ill-appearing 74-year-old female, in no significant distress. HEENT: No scleral icterus, PERRLA, neck supple. Atraumatic. Cardiovascular: Tachycardic but regular, no extra sounds Pulmonary: Clear to auscultation bilaterally, normal work of breathing. Abdomen: Soft, nontender, nondistended, positive bowel sounds. Musculoskeletal: Atraumatic, no peripheral edema. Neurologic: Patient awake alert and oriented x 3, speech is clear Skin: Warm, dry, no rash EMERGENCY DEPARTMENT COURSE/MDM: This patient was evaluated and appeared to be in no significant distress. IV access was obtained and laboratory work was drawn. Patient is noted to be febrile and given Tylenol. Laboratory work reveals a neutropenia. Chest x-ray was performed and reveals consolidation of the right lower lung base. Blood cultures were obtained. Patient's lactate is normal, procalcitonin is slightly elevated. Viral respiratory swab is negative. She was given 2 g of IV cefepime. IV fluids were administered. Patient was also given IV potassium repletion. Patient's case was discussed with the hospitalist service for admission and further management. She is aware of the findings and plan and agrees. MONITORING: An order for cardiac monitoring was placed and the patient is noted to be in a sinus tachycardia at 104 beats per minute. RADIOLOGY: Chest x-ray to my interpretation reveals chronic interstitial change with a consolidation at the right lower lung base. EKG: To my interpretation reveals a sinus tachycardia at 104 bpm. LVH with repolarization abnormality. QTc of 444. No PVC, no PAC. DISPOSITION: Admission Past Med/Surg History Problem List (Updated 03/02/25 @ 08:21 by Jacqueline Yadav MD) Pneumonia (Acute) Neutropenic fever (Acute) Chemotherapy induced neutropenia Hypokalemia Sepsis Neutropenic fever RLL pneumonia Iron deficiency Tachycardia Acute hyponatremia (Acute) Anemia (Acute) Lymphoma (Acute) Elevated troponin GI bleed Transaminitis Fever with leukocytosis and leukocyte count less than 20,000 Hypomagnesemia Hyponatremia Fever Systemic sclerosis Rotator cuff tear Atherosclerosis of right common carotid artery Anemia (Acute) Tendinitis of right rotator cuff (Acute) Right knee pain (Acute) Polyneuropathy (Acute) Other specified disorders of bone density and structure, other site (Acute) Hyperglobulinemia (Acute) Dyslipidemia (Acute) Leg cramping Routine gynecological examination Biceps tendonitis on right Recurrent cough Pulmonary fibrosis Vomiting (Acute) Acute dehydration (Acute) Multiple pulmonary nodules LAD (lymphadenopathy), mediastinal Chronic cough Upper airway cough syndrome Right shoulder pain Glenohumeral arthritis Systemic sclerosis with limited cutaneous involvement History of B-cell lymphoma Medical History Port-A-Cath in place Diffuse large B cell lymphoma TACO (transfusion associated circulatory overload) during 12/2024 hospitalization Right-sided carotid artery occlusion without cerebral infarction 80% right common carotid artery occlusion per CTA 08/2024 Ex-smoker ILD (interstitial lung disease) Personal history of breast cancer right CREST (calcinosis, Raynaud's phenomenon, esophageal dysfunction, sclerodactyly, telangiectasia) GERD without esophagitis Hypothyroidism Impaired fasting glucose Iron deficiency anemia Osteopenia Acute respiratory failure with hypoxia and hypercapnia Gastric antral vascular ectasia SBO (small bowel obstruction) Surgical History History of reconstruction of right breast History of colonoscopy History of subtotal mastectomy of right breast Family History Father Myocardial infarction Sister Breast cancer Ovarian cancer Brother Colon cancer Diabetes Prostate cancer Colorectal cancer Mother Coronary heart disease Diabetes Social History Smoking Status: Former smoker Tobacco Type: Cigarettes Age Started Using Tobacco: 29; Age Quit Using Tobacco: 39; packs per day: 0.25; Cigarettes Per Day: 1-1 1/2 PPD; Second Hand Exposure: No; Do You Dip or Chew Tobacco: No; Hx Alcohol Use: No Hx Substance Use: No Preferred Language: Slovak Communication Ability: Effective Visual Impairment: No Limitations Hearing Ability: Normal 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 Required: No Beliefs That Will Affect Care: None marital status: Current Living Situation: Spouse Current Living Situation Comment: lives with in [place] current occupational status: retired How many Children do You have: 0 How many Children do You have Comment: does not have biological children; 2 step-children Other Information That Helps Us Care for You: No Feels Safe at Home: Yes Safety Concerns: Feels Safe At This Time Childhood Exposure to Second-Hand Smoke: Yes Diet: regular caffeine: No Dental Care, Regularly: Yes Physical Activity Frequency: Daily Seatbelt Use: always Sunscreen Use: Yes Assistive Devices: Walker Assistive Devices Comment: dentures/walker Allergies Allergies Allergy/AdvReac Type Severity Reaction Status Date / Time nickel AdvReac Severe RASH- Verified 12/26/24 14:13 HANDS AND OTHER AREAS BREAK OUT Home Meds Home Medications Medication Instructions Recorded Confirmed calcium carbonate 600 mg PO QAM 01/06/20 02/26/25 cyanocobalamin (vitamin B-12) 1,000 mcg PO .tuesday12/22/22 02/26/25 1,000 mcg tablet ascorbic acid (vitamin C) 1,000 mg 1 g PO QAM 08/08/24 02/26/25 tablet (Vitamin C) cholecalciferol (vitamin D3) 25 25 mcg PO QAM 08/08/24 02/26/25 mcg (1,000 unit) tablet (Vitamin D3) levothyroxine 25 mcg tablet 25 mcg PO DAILYBB 08/08/24 02/26/25 mycophenolate mofetil 500 mg 1,000 mg PO .ON HOLD 08/08/24 02/26/25 tablet (CellCept) omega-3 fatty acids 500 mg capsule 500 mg PO QAM 08/08/24 02/26/25 rosuvastatin 10 mg tablet 10 mg PO HS 08/08/24 02/26/25 allopurinol 300 mg tablet 300 mg PO DAILY 10/31/24 02/26/25 albuterol sulfate 90 mcg/actuation 2 puff inhalation UD PRN Shortness 02/26/25 02/26/25 aerosol inhaler Of Breath Or Wheezing baclofen 10 mg tablet 10 mg PO UD 02/26/25 02/26/25 desoximetasone 0.25 % topical 1 applic topical UD 02/26/25 02/26/25 ointment levofloxacin 500 mg tablet 500 mg PO DAILY 02/26/25 02/26/25 potassium chloride 10 mEq 10 meq PO UD PRN only when you 02/26/25 02/26/25 tablet,extended release take furosemide Previous Rx's Medication Instructions Recorded pantoprazole 40 mg tablet,delayed 40 mg PO BID #180 tabs 11/19/24 release furosemide 40 mg tablet (Lasix) 40 mg PO DAILY PRN 12/17/24 post-transfusion or edema/swelling #20 tabs metoprolol tartrate 50 mg tablet 50 mg PO BID #60 tabs 12/17/24 duloxetine 30 mg capsule,delayed 30 mg PO DAILY #90 caps 01/02/25 release trazodone 50 mg tablet See Rx Instructions PO HS PRN 01/23/25 insomnia #60 tabs benzonatate 100 mg capsule 100 - 200 mg (1 - 2 x 100 mg) PO 02/15/25 TID PRN cough #30 caps Results & Data (ED) Vital Signs Vital Signs - 24 hr 02/26/25 10:10 Temperature 38.4 C H Temperature Source Temporal Artery Scan Pulse Rate 85 Respiratory Rate 20 Respiratory Effort / Characteristics Non-Labored Spontaneous Respiratory Depth Normal Blood Pressure 127/64 Blood Pressure Mean 85 Pulse Oximetry 94 Oxygen Delivery Method Room Air Sepsis Recent Fever Within 48 Hours No Sepsis New/Unexplained Change in Mental Status N/A Sepsis Action Taken by Nursing No Action Required Home Medications Current Medication List: was personally reviewed by me Laboratory Data Attestation: I reviewed the patient's lab results. 03/02/25 06:26 03/02/25 06:26 Lab Results 04/15/25 04/15/25 04/15/25 Range/Units 10:47 11:35 11:55 WBC 0.59 L* (4.8-10.8) K/ul RBC 2.51 L (4.20-5.40) M/uL Hgb 7.3 L (12.0-16.0) g/dl Hct 22.2 L (37.0-47.0) % MCV 88.4 (80.0-100.0) fL MCH 29.1 (25.0-34.0) pg MCHC 32.9 (32.0-36.0) g/dL RDW Std Deviation 61.1 H (36.4-46.3) fL RDW Coeff of Colette 18.9 H (11.5-14.5) % Plt Count 185 (130-400) K/uL MPV 10.0 (9.4-12.4) fL Immature Gran % (Auto) 1.7 % Neut % (Auto) 6.7 % Lymph % (Auto) 42.4 % Rice % (Auto) 37.3 % Eos % (Auto) 10.2 % Baso % (Auto) 1.7 % Neut # (Auto) 0.04 L* (1.40-6.50) K/uL Lymph # (Auto) 0.25 L (1.20-3.40) K/uL Rice # (Auto) 0.22 (0.11-0.59) K/uL Eos # (Auto) 0.06 (0.00-0.50) K/uL Baso # (Auto) 0.01 (0.00-0.20) K/uL Immature Gran # (Auto) 0.01 (0.01-0.20) K/uL Sodium 129 L (136-145) mmol/L Potassium 3.0 L (3.5-5.1) mmol/L Chloride 95 L (98-107) mmol/L Carbon Dioxide 27 (21-32) mmol/L Anion Gap 7 (3-11) BUN 12 (6-23) mg/dl Creatinine 0.50 L (0.6-1.2) mg/dl Est Cr Clr Drug Dosing 90.2 ml/min eGFR 98.97 BUN/Creatinine Ratio 24.0 H (10-20) Glucose 100 H (70-99(Fasting)) mg/dl Lactate 1.1 (0.4-2.0) mmol/L Calcium 8.2 L (8.6-10.3) mg/dl Magnesium 1.4 L (1.7-2.4) mg/dl Total Bilirubin 0.7 (0.2-1.0) mg/dl Direct Bilirubin 0.2 (0-0.2) mg/dl AST 19 (13-39) U/L ALT 14 (7-52) U/L Alkaline Phosphatase 78 (34-104) U/L Troponin I High Sens 18.4 H (0-14) pg/ml Total Protein 5.9 L (6.0-8.3) gm/dl Albumin 3.2 L (3.4-5.0) gm/dl Procalcitonin 0.93 H (0-0.5) ng/ml Urine Color Yellow Urine Appearance Clear (Clear) Urine pH 7.5 (4.5-7.5) Ur Specific [place] 1.020 (1.000-1.030) Urine Protein 1+ H (Negative) Urine Glucose (UA) Negative (Negative) Urine Ketones Negative (Negative) Urine Blood Negative (Negative) Urine Nitrite Negative (Negative) Urine Bilirubin Negative (Negative) Urine Urobilinogen Negative (Negative) Ur Leukocyte Esterase Negative (Negative) Urine RBC 0-2 (0-2) /hpf Urine WBC 0-5 (0-5) /hpf Ur Epithelial Cells 0-2 (0-2) /hpf Urine Bacteria 1+ H (None Seen) Administered Medications Acetaminophen (Acetaminophen 325 Mg Tab) 650 mg PO Q4H PRN PRN Reason: Pain or Fever Stop: 03/28/25 14:25 Last Admin: 03/01/25 22:12 Dose: 650 mg Documented By: Admin: 03/01/25 13:14 Dose: 650 mg Documented By: Admin: 02/27/25 17:13 Dose: 650 mg Documented By: Admin: 02/26/25 16:40 Dose: 650 mg Documented By: JUAN Allopurinol (Allopurinol 300 Mg Tab) 300 mg PO DAILY STUART Stop: 03/29/25 08:59 Last Admin: 03/01/25 09:02 Dose: 300 mg Documented By: Admin: 02/28/25 09:17 Dose: 300 mg Documented By: Admin: 02/27/25 08:57 Dose: 300 mg Documented By: JUAN Baclofen (Baclofen 10 Mg Tab) 10 mg PO QAM STUART Stop: 03/29/25 08:59 Last Admin: 03/01/25 09:02 Dose: 10 mg Documented By: Admin: 02/28/25 09:17 Dose: 10 mg Documented By: Admin: 02/27/25 08:55 Dose: 10 mg Documented By: JUAN Baclofen (Baclofen 10 Mg Tab) 20 mg PO HS STUART Stop: 03/28/25 20:59 Last Admin: 03/01/25 20:23 Dose: 20 mg Documented By: Admin: 02/28/25 19:46 Dose: 20 mg Documented By: Admin: 02/27/25 20:59 Dose: 20 mg Documented By: Admin: 02/26/25 21:27 Dose: 20 mg Documented By: STEPHANIE Calcium Carbonate (Calcium Carbonate 1250mg Tab) 1 tab PO QAM STUART Stop: 03/29/25 08:59 Last Admin: 03/01/25 09:02 Dose: 1 tab Documented By: Admin: 02/28/25 09:18 Dose: 1 tab Documented By: Admin: 02/27/25 08:56 Dose: 1 tab Documented By: JUAN Cyanocobalamin (Cyanocobalamin (B-12) 500 Mcg Tablet) 1,000 mcg PO We@0900 STUART Stop: 03/29/25 08:59 Last Admin: 02/27/25 08:56 Dose: 1,000 mcg Documented By: JUAN Duloxetine HCl (Duloxetine Hcl 30 Mg Cap) 30 mg PO DAILY STUART Stop: 03/29/25 08:59 Last Admin: 03/01/25 09:03 Dose: 30 mg Documented By: Admin: 02/28/25 09:18 Dose: 30 mg Documented By: Admin: 02/27/25 08:57 Dose: 30 mg Documented By: JUAN Fluocinonide (Fluocinonide 0.05% Oint 15 Gm Tube) 1 appln EXT DAILY STUART Stop: 03/29/25 08:59 Last Admin: 03/01/25 09:03 Dose: 1 appln Documented By: Admin: 02/28/25 09:18 Dose: 1 appln Documented By: Admin: 02/27/25 08:58 Dose: Not Given Documented By: JUAN Heparin Sodium (Porcine) (Heparin Sod 5,000 Unit/0.5 Ml Vial) 5,000 units SQ Q12 STUART Stop: 03/28/25 20:59 Last Admin: 03/01/25 20:23 Dose: Not Given Documented By: Admin: 03/01/25 09:03 Dose: 5,000 units Documented By: Admin: 02/28/25 19:38 Dose: Not Given Documented By: Admin: 02/28/25 09:18 Dose: Not Given Documented By: Admin: 02/27/25 21:06 Dose: Not Given Documented By: Admin: 02/27/25 08:54 Dose: Not Given Documented By: Admin: 02/26/25 21:28 Dose: Not Given Documented By: STEPHANIE Heparin Sodium (Porcine) (Heparin 100 Unit/Ml 5ml Flush) 5 ml FLUSH PRN PRN PRN Reason: Flush Stop: 03/29/25 03:08 Last Admin: 03/02/25 04:35 Dose: 5 ml Documented By: Admin: 03/01/25 13:57 Dose: 5 ml Documented By: HONG Cefepime HCl (Maxipime 2000mg) 2,000 mg in 20 mls @ 5 mls/min IV Q8H STUART; Protocol Stop: 03/03/25 19:59 Last Admin: 03/02/25 04:35 Dose: 5 mls/min Documented By: Admin: 03/01/25 20:22 Dose: 5 mls/min Documented By: Admin: 03/01/25 13:14 Dose: 5 mls/min Documented By: Admin: 03/01/25 03:59 Dose: 5 mls/min Documented By: Admin: 02/28/25 19:45 Dose: 5 mls/min Documented By: Admin: 02/28/25 11:58 Dose: 5 mls/min Documented By: Admin: 02/28/25 04:35 Dose: 5 mls/min Documented By: Admin: 02/27/25 20:58 Dose: 5 mls/min Documented By: Admin: 02/27/25 11:30 Dose: 5 mls/min Documented By: Admin: 02/27/25 04:23 Dose: 5 mls/min Documented By: Admin: 02/26/25 19:31 Dose: 5 mls/min Documented By: STEPHANIE Levothyroxine Sodium (Levothyroxine Sodium 25 Mcg Tablet) 25 mcg PO DAILYBB STUART Stop: 03/29/25 06:29 Last Admin: 03/02/25 05:33 Dose: 25 mcg Documented By: Admin: 03/01/25 06:20 Dose: 25 mcg Documented By: [facility] Admin: 02/28/25 06:25 Dose: 25 mcg Documented By: [facility] Admin: 02/27/25 05:52 Dose: 25 mcg Documented By: STEPHANIE Melatonin (Melatonin 3 Mg Tab) 6 mg PO HS PRN PRN Reason: Sleep Stop: 03/29/25 00:35 Last Admin: 03/01/25 20:26 Dose: 6 mg Documented By: Admin: 02/28/25 19:45 Dose: 6 mg Documented By: [facility] Admin: 02/27/25 20:59 Dose: 6 mg Documented By: [facility] Admin: 02/27/25 01:10 Dose: 6 mg Documented By: STEPHANIE Metoprolol Tartrate (Metoprolol Tartrate 25 Mg Tab) 25 mg PO BID STUART Stop: 03/28/25 20:59 Last Admin: 03/01/25 20:23 Dose: 25 mg Documented By: Admin: 03/01/25 09:03 Dose: 25 mg Documented By: Admin: 02/28/25 19:49 Dose: 25 mg Documented By: Admin: 02/28/25 09:18 Dose: 25 mg Documented By: Admin: 02/27/25 21:00 Dose: 25 mg Documented By: [facility] Admin: 02/27/25 08:55 Dose: 25 mg Documented By: Admin: 02/26/25 21:29 Dose: Not Given Documented By: STEPHANIE Pantoprazole Sodium (Pantoprazole 40 Mg Tab) 40 mg PO BID STUART Stop: 03/28/25 20:59 Last Admin: 03/01/25 20:23 Dose: 40 mg Documented By: Admin: 03/01/25 09:03 Dose: 40 mg Documented By: Admin: 02/28/25 19:49 Dose: 40 mg Documented By: [facility] Admin: 02/28/25 09:18 Dose: 40 mg Documented By: Admin: 02/27/25 21:00 Dose: 40 mg Documented By: Admin: 02/27/25 08:57 Dose: 40 mg Documented By: Admin: 02/26/25 21:29 Dose: 40 mg Documented By: STEPHANIE Rosuvastatin Calcium (Rosuvastatin Calcium 10 Mg Tab) 10 mg PO HS STUART Stop: 03/28/25 20:59 Last Admin: 03/01/25 20:23 Dose: 10 mg Documented By: Admin: 02/28/25 19:49 Dose: 10 mg Documented By: Admin: 02/27/25 21:00 Dose: 10 mg Documented By: [facility] Admin: 02/26/25 21:29 Dose: 10 mg Documented By: STEPHANIE Trazodone HCl (Trazodone Hcl 50 Mg Tab) 50 mg PO HS PRN PRN Reason: insomnia Stop: 03/28/25 14:25 Last Admin: 03/01/25 20:26 Dose: 50 mg Documented By: Admin: 02/28/25 19:45 Dose: 50 mg Documented By: Admin: 02/26/25 21:26 Dose: 50 mg Documented By: STEPHANIE Vitamin D (Cholecalciferol 25 Mcg (1000 Units) Tab) [facility] [place] Stop: 03/29/25 08:59 Last Admin: 03/01/25 09:02 Dose: 25 mcg Documented By: Admin: 02/28/25 09:17 Dose: 25 mcg Documented By: Admin: 02/27/25 08:55 Dose: 25 mcg Documented By: JUAN Discontinued Medications Acetaminophen (Acetaminophen 500 Mg Tab) 1,000 mg PO NOW STA Stop: 02/26/25 10:29 Last Admin: 02/26/25 11:39 Dose: 1,000 mg Documented By: MARTHA Azithromycin (Azithromycin 250 Mg Tab) [facility] [place] Stop: 03/04/25 11:44 Last Admin: 02/28/25 09:17 Dose: 500 mg Documented By: Admin: 02/27/25 12:42 Dose: 500 mg Documented By: JUAN Sodium Chloride (Nss) 1,000 mls @ 125 mls/hr IV .Q8H STUART Stop: 02/27/25 10:29 Last Infusion: 02/26/25 14:44 Dose: Infused Documented By: Admin: 02/26/25 11:31 Dose: 125 mls/hr Documented By: MARTHA Cefepime HCl (Maxipime 2000mg) 2,000 mg in 20 mls @ 5 mls/min IV NOW STA; Protocol Stop: 02/26/25 10:32 Last Admin: 02/26/25 11:39 Dose: 5 mls/min Documented By: MARTHA Magnesium Sulfate/Dextrose (Magnesium Sulfate / D5w) 1 gm in 100 mls @ 200 mls/hr IV Q30M STUART Stop: 02/26/25 12:42 Last Infusion: 02/26/25 15:21 Dose: Infused Documented By: Admin: 02/26/25 14:51 Dose: 200 mls/hr Documented By: Infusion: 02/26/25 13:27 Dose: Infused Documented By: Admin: 02/26/25 12:44 Dose: 200 mls/hr Documented By: MARTHA Potassium Chloride (K Geovanny / Wtr) 10 meq in 100 mls @ 100 mls/hr IV Q1H [facility] Stop: 02/26/25 13:44 Last Infusion: 02/26/25 14:44 Dose: Infused Documented By: Admin: 02/26/25 13:42 Dose: 100 mls/hr Documented By: Infusion: 02/26/25 13:42 Dose: Infused Documented By: Admin: 02/26/25 12:44 Dose: 100 mls/hr Documented By: MARTHA Sodium Chloride (Nss) 500 mls @ 999 mls/hr IV .Q31M ONE Stop: 02/26/25 12:22 Last Infusion: 02/26/25 13:27 Dose: Infused Documented By: Admin: 02/26/25 12:44 Dose: 999 mls/hr Documented By: MARTHA Doxycycline Hyclate 100 mg/ (Dextrose) 100 mls @ 50 mls/hr IV NOW STA Stop: 02/26/25 14:47 Last Infusion: 02/26/25 15:22 Dose: Infused Documented By: Admin: 02/26/25 13:32 Dose: 50 mls/hr Documented By: SANDRO Doxycycline Hyclate 100 mg/ (Dextrose) 100 mls @ 50 mls/hr IV Q12H STUART Stop: 03/03/25 20:59 Last Infusion: 02/27/25 10:50 Dose: Infused Documented By: PRISCILA Co-signed By: JUAN Admin: 02/27/25 08:47 Dose: 50 mls/hr Documented By: Infusion: 02/26/25 23:30 Dose: Infused Documented By: Admin: 02/26/25 21:30 Dose: 50 mls/hr Documented By: STEPHANIE Vancomycin HCl 1,250 mg/ (Sodium Chloride) 275 mls @ 200 mls/hr IV NOW STA Stop: 02/26/25 16:30 Last Infusion: 02/26/25 17:05 Dose: Infused Documented By: Admin: 02/26/25 15:31 Dose: 200 mls/hr Documented By: JUAN Vancomycin HCl (Vancomycin Hcl) 1,000 mg in 270 mls @ 200 mls/hr IV Q12H [facility] Stop: 03/04/25 00:00 Last Infusion: 02/28/25 00:57 Dose: Infused Documented By: Admin: 02/27/25 23:36 Dose: 200 mls/hr Documented By: Infusion: 02/27/25 13:16 Dose: Infused Documented By: Admin: 02/27/25 11:31 Dose: 200 mls/hr Documented By: Infusion: 02/27/25 01:49 Dose: Infused Documented By: Admin: 02/27/25 00:28 Dose: 200 mls/hr Documented By: STEPHANIE Potassium Chloride (K Geovanny / Wtr) 10 meq in 100 mls @ 100 mls/hr IV Q1H [facility]UART Stop: 02/27/25 10:14 Last Infusion: 02/27/25 10:50 Dose: Infused Documented By: PRISCILA Co-signed By: JUAN Admin: 02/27/25 09:40 Dose: 100 mls/hr Documented By: Infusion: 02/27/25 09:40 Dose: Infused Documented By: Admin: 02/27/25 08:47 Dose: 100 mls/hr Documented By: JUAN Vancomycin HCl (Vancomycin Hcl) 1,000 mg in 270 mls @ 200 mls/hr IV Q8H STUART Stop: 03/04/25 00:00 Last Infusion: 03/01/25 03:29 Dose: Infused Documented By: GT Admin: 03/01/25 02:08 Dose: 200 mls/hr Documented By: GTWendy Infusion: 02/28/25 19:36 Dose: Infused Documented By: Admin: 02/28/25 17:22 Dose: 200 mls/hr Documented By: Infusion: 02/28/25 12:25 Dose: Infused Documented By: Admin: 02/28/25 11:01 Dose: 200 mls/hr Documented By: MARGARITA Imaging Data Radiologist's Impression: Chest X-Ray 02/26/25 10:24 XR chest 1V portable CLINICAL HISTORY: Sepsis COMPARISON STUDY: 12/17/2024 FINDINGS: Stable chest port. Heart size and pulmonary vasculature are normal. There is an interval small area of patchy opacity lateral right lung base. No other consolidation or pleural effusion. No pneumothorax. IMPRESSION: Early pneumonia right lung base. ACT 112: Negative or not required by law. Electronically signed by: Aramis Martinez M.D. 02/26/2025 10:47 AM Discharge Plan Visit Data Chief Complaint: Tachycardia Stated Complaint: TACHYCARDIA, CHECK OX ED Provider: Jacqueline Yadav Discharge Problem: Neutropenic fever, Pneumonia Patient Disposition: Admitted As Inpatient Discharge Instructions Interventions: ED Discharge Assessment Last Done: 02/26/25 14:06 Discharge Problem: Pneumonia Qualifiers: Pneumonia type: due to unspecified organism Laterality: right Lung location: l ower lobe of lung Qualified Code(s): J18.9 - Pneumonia, unspecified organism
--- NOTE | 2025-02-26 12:14 | History & Physical Report ---
Date of Service February 26, 2025 Assessment & Plan (1) RLL pneumonia: (2) Neutropenic fever: (3) Sepsis: (4) Chemotherapy induced neutropenia: (5) Acute respiratory failure with hypoxia: (6) Diffuse large B cell lymphoma: (7) Hyponatremia: (8) Hypomagnesemia: (9) Hypothyroidism: (10) GERD without esophagitis: (11) Dyslipidemia: (12) CREST (calcinosis, Raynaud's phenomenon, esophageal dysfunction, sclerodactyly, telangiectasia): (13) ILD (interstitial lung disease): (14) Hypokalemia: (15) Anemia: Plan 74yo female with diffuse large B-cell lymphoma - s/p initiation of 6 treatment cycles on 12/18/24 consisting of prednisone/rituximab/cytoxan/brentuximab (last treatment on 02/20/25) - along with ILD (previously on cellcept), CREST syndrome, GERD, hypothyroidism, iron deficiency anemia, GAVE, and hyponatremia. Presents with three 3 days of feeling poorly including weakness, fevers, chills, shortness of breath, and slight cough. Upon presentation has severe neutropenia, anemia, and evidence of RLL pneumonia. Likely sepsis as well. #RLL pneumonia - * as seen on admission CXR * likely cause of her presenting illness * at risk of gram negative etiology in the setting of hospital admission 2 months ago, severe neutropenia from chemotherapy, etc. * thus, continue cefepime 2 gm IV q8h * add doxy 100mg BID for atypical coverage * MRSA swab returned negative; however, IV vanco will be ordered mainly to cover her A-port until blood cultures are final * NC O2 to keep sats 90% or greater * supportive care, albuterol prn, etc. * of note - respiratory BioFire returned fully negative #Sepsis - * 2nd RLL pneumonia * s/p IV fluid boluses/additional fluids given in ER * lactate wnl * creatinine stable * follow blood/urine cx's * antibiotics as discussed above #Acute hypoxic respiratory failure - * documented O2 sats of 87% upon presentation today, and lower 80s at home * documented RR of 26 upon presentation today * resp failure 2nd to RLL pneumonia in setting of known ILD * provide supplemental o2 to keep sats 90% or greater, but sats in low 90s are likely acceptable given her chronic ILD #Severe chemotherapy induced neutropenia - * ANC 40 today * daily CBC w/ diff while hospitalized * neutropenic precautions * s/p Neulasta around the time of her last chemotherapy cycle on 02/20/25 * I corresponded with Dr Logan Plummer her oncologist confirming that indeed she had received Neulasta * he does not recommend additional Neupogen at this time * IV antibiotics as noted above #Neutropenic fever - * source - RLL pneumonia * she also has been having chronic fevers/nightsweats in the setting of her diffuse large B-cell lymphoma for months * see above re: IV antibiotics * she does have A-port - IV vancomycin ordered to cover the port until blood cultures return * follow blood/urine cx's * cefepime/doxy for RLL pneumonia #diffuse large B-cell lymphoma - * follows with Dr Logan Plummer, [facility] Oncology office * s/p chemotherapy on 02/20/25 along with Neulasta * just had PET-CT at [facility] on 02/11/25 showing treatment response per office notes (I cannot find the actual PET-CT report in her chart, however) * 6 cycles of chemotherapy were planned for her disease * now with RLL pneumonia, neutropenia, anemia, etc as above #anemia - * multifactorial - lymphoma, chemotherapy, previous iron deficiency, etc. * recent B12/folate levels wnl * Hb 7.3 today - Tx 1 unit of irradiated blood * of note - patient had TACO during her 12/2024 hospitalization; however, she had had ~6 units of PRBCs over a 2-3 week time span * no transfusion reaction or TRALI suspected * serial exams following the blood, and consider lasix if needed * CBC w/ diff daily while here #CREST - * no issues at this time * cont PPI twice daily for CREST + history of GAVE #ILD - * known history of PF/ILD * previously was on Cellcept for such; this was d/c when she was getting ready to initiate Rx for her lymphoma * some of her CXR findings are likely ILD-related with superimposed RLL pneumonia * passed 2-step in December, but would get another prior to discharge from this hospitalization * defer on systemic steroids at this time #Hypothyroidism - * TSH 2 in 11/2024 * cont synthroid #Hyponatremia - * chronic, dating back to fall 2023 * baseline ~130 * Na level today - 129 * daily BMP while here * has history of TACO and fluid overload during prior hospitalization * if BPs remain stable following initial fluid resuscitation - and given the plans for 1 unit PRBCs - would not continue maintenance fluids thereafter #GERD - * PPI twice daily #h/o iron deficiency - * received IV iron during her stay in 12/08 to 01/08 * also received IV iron by Dr Plummer since that time * would defer on IV iron at this time given fevers, sepsis, etc. #Hypokalemia - * replacement given in ER * repeat BMP am * replace low mag as well #Hypomagnesemia - * replacement given in ER * repeat mag level am #DVT proph - * despite h/o GAVE she is at high risk of VTE * thus, heparin 5000 BID cautiously * platelets today are wnl updated at bedside during the admission process care d/w Dr Logan Plummer, her primary oncologist, via [place] correspondence History of Present Illness Chief Complaint: fever, dyspnea, weakness Primary Care Provider: EARL Arriola 74yo female with diffuse large B-cell lymphoma - s/p initiation of 6 treatment cycles on 12/18/24 consisting of prednisone/rituximab/cytoxan/brentuximab (last treatment on 02/20/25) - along with ILD (previously on cellcept), CREST syndrome, GERD, hypothyroidism, iron deficiency anemia, GAVE, and hyponatremia who presents from Dr Logan Plummer's office ([facility] oncology) with fever, weakness, shortness of breath, and simply feeling unwell. After her last chemotherapy treatment her noticed her breathing was a bit more labored than usual, then this past Tuesday she developed fever to 100.8, had chills, developed generalized weakness, and needed some assistance around the house. She is typically very independent. Her shortness of breath got worse on Tuesday as well. They have a pulse oximeter at home and occasionally her O2 sats were dropping to the 80s. She is not on supplemental O2 at home. Despite the above she continues to eat well. Minimal cough. Some runny nose. 1 episode of diarrhea earlier today. No travel, no sick contacts. In the ER today she was tachycardic, febrile, and CBC showed ANC of 40 with WBC <1. Hemoglobin 7.3. Na, K, and magnesium were all mildly low. She was given IV fluids, tylenol, and a dose of cefepime. IV magnesium and potassium were ordered by the ER attending. Per outpatient records she did receive a dose of Neulasta around the time of her chemotherapy cycle last week. Allergies Allergy/AdvReac Type Severity Reaction Status Date / Time nickel AdvReac Severe RASH- Verified 12/26/24 14:13 HANDS AND OTHER AREAS BREAK OUT Home Medications Medication Instructions Recorded Confirmed Type calcium carbonate 600 mg PO QAM 01/06/20 02/26/25 History cyanocobalamin (vitamin B-12) 1,000 mcg PO .tuesday12/22/22 02/26/25 History 1,000 mcg tablet ascorbic acid (vitamin C) 1,000 mg 1 g PO QAM 08/08/24 02/26/25 History tablet (Vitamin C) cholecalciferol (vitamin D3) 25 25 mcg PO QAM 08/08/24 02/26/25 History mcg (1,000 unit) tablet (Vitamin D3) levothyroxine 25 mcg tablet 25 mcg PO DAILYBB 08/08/24 02/26/25 History mycophenolate mofetil 500 mg 1,000 mg PO .ON HOLD 08/08/24 02/26/25 History tablet (CellCept) omega-3 fatty acids 500 mg capsule 500 mg PO QAM 08/08/24 02/26/25 History rosuvastatin 10 mg tablet 10 mg PO HS 08/08/24 02/26/25 History allopurinol 300 mg tablet 300 mg PO DAILY 10/31/24 02/26/25 History pantoprazole 40 mg tablet,delayed 40 mg PO BID #180 tabs 11/19/24 02/26/25 Rx release furosemide 40 mg tablet (Lasix) 40 mg PO DAILY PRN 12/17/24 02/26/25 Rx post-transfusion or edema/swelling #20 tabs metoprolol tartrate 50 mg tablet 50 mg PO BID #60 tabs 12/17/24 02/26/25 Rx duloxetine 30 mg capsule,delayed 30 mg PO DAILY #90 caps 01/02/25 02/26/25 Rx release trazodone 50 mg tablet See Rx Instructions PO HS PRN 01/23/25 02/26/25 Rx insomnia #60 tabs benzonatate 100 mg capsule 100 - 200 mg (1 - 2 x 100 mg) PO 02/15/25 02/26/25 Rx TID PRN cough #30 caps albuterol sulfate 90 mcg/actuation 2 puff inhalation UD PRN Shortness 02/26/25 02/26/25 History aerosol inhaler Of Breath Or Wheezing baclofen 10 mg tablet 10 mg PO UD 02/26/25 02/26/25 History desoximetasone 0.25 % topical 1 applic topical UD 02/26/25 02/26/25 History ointment levofloxacin 500 mg tablet 500 mg PO DAILY 02/26/25 02/26/25 History potassium chloride 10 mEq 10 meq PO UD PRN only when you 02/26/25 02/26/25 History tablet,extended release take furosemide Past Med/Surg History Problem List (Updated 02/27/25 @ 05:37 by Ricky Chavez MD) Chemotherapy induced neutropenia Hypokalemia Sepsis Neutropenic fever RLL pneumonia Iron deficiency Tachycardia Acute hyponatremia (Acute) Anemia (Acute) Lymphoma (Acute) Elevated troponin GI bleed Transaminitis Fever with leukocytosis and leukocyte count less than 20,000 Hypomagnesemia Hyponatremia Fever Systemic sclerosis Rotator cuff tear Atherosclerosis of right common carotid artery Anemia (Acute) Tendinitis of right rotator cuff (Acute) Right knee pain (Acute) Polyneuropathy (Acute) Other specified disorders of bone density and structure, other site (Acute) Hyperglobulinemia (Acute) Dyslipidemia (Acute) Leg cramping Routine gynecological examination Biceps tendonitis on right Recurrent cough Pulmonary fibrosis Vomiting (Acute) Acute dehydration (Acute) Multiple pulmonary nodules LAD (lymphadenopathy), mediastinal Chronic cough Upper airway cough syndrome Right shoulder pain Glenohumeral arthritis Systemic sclerosis with limited cutaneous involvement History of B-cell lymphoma Medical History (Updated 02/27/25 @ 05:37 by Ricky Chavez MD) Port-A-Cath in place Diffuse large B cell lymphoma TACO (transfusion associated circulatory overload) during 12/2024 hospitalization Right-sided carotid artery occlusion without cerebral infarction 80% right common carotid artery occlusion per CTA 08/2024 Ex-smoker ILD (interstitial lung disease) Personal history of breast cancer right CREST (calcinosis, Raynaud's phenomenon, esophageal dysfunction, sclerodactyly, telangiectasia) GERD without esophagitis Hypothyroidism Impaired fasting glucose Iron deficiency anemia Osteopenia Acute respiratory failure with hypoxia and hypercapnia Gastric antral vascular ectasia SBO (small bowel obstruction) Surgical History History of reconstruction of right breast History of colonoscopy History of subtotal mastectomy of right breast Family History Father Myocardial infarction Sister Breast cancer Ovarian cancer Brother Colon cancer Diabetes Prostate cancer Colorectal cancer Mother Coronary heart disease Diabetes Social History (Updated 02/26/25 @ 21:25 by Ricky Chavez MD) Smoking Status: Former smoker Tobacco Type: Cigarettes Age Started Using Tobacco: 29; Age Quit Using Tobacco: 39; packs per day: 0.25; Cigarettes Per Day: 1-1 1/2 PPD; Second Hand Exposure: No; Do You Dip or Chew Tobacco: No; Hx Alcohol Use: No Hx Substance Use: No Preferred Language: Dominican Communication Ability: Effective Visual Impairment: No Limitations Hearing Ability: Normal Pediatric Dental Hygienist Required: No Beliefs That Will Affect Care: None marital status: Current Living Situation: Spouse Current Living Situation Comment: lives with in [place] current occupational status: retired How many Children do You have: 0 How many Children do You have Comment: does not have biological children; 2 step-children Other Information That Helps Us Care for You: No Feels Safe at Home: Yes Safety Concerns: Feels Safe At This Time Childhood Exposure to Second-Hand Smoke: Yes Diet: regular caffeine: No Dental Care, Regularly: Yes Physical Activity Frequency: Daily Seatbelt Use: always Sunscreen Use: Yes Assistive Devices: Denture - Upper, Denture - Lower, Glasses and Walker Assistive Devices Comment: dentures/walker Review of Systems Review of Systems: gen - fevers - acute on chronic (has chronic low-grade fevers 2nd lymphoma); acute high temps since Tuesday; some weight loss; chills since Tuesday; chronic nightsweats 2nd lymphoma eyes - no visual change or discharge HENT - no ear pain, no sore throat, no lesions in mouth; mild runny nose neck - no acute neck pain CV - mild chest tightness with walking since Tuesday of this week; no edema pulm - minimal cough; dyspnea with exertion; no wheezing GI - no abd pain; some nausea but no emesis; 1 episode of diarrhea today; no melena stools, no BRBPR - no dysuria musculo - no joint swelling or pain skin - no rashes neuro - mild headache endo - no diabetes Physical Exam Physical Exam: gen - thin, no distress, awake/alert; pleasant eyes - PERRL skin - generalized pallor, no rash; fingernail clubbing HENT - TMs clear b/l, nose clear, mouth with MMM; no thrush, no lesions neck - no JVD, no thyroid masses heart - tachy, s1 s2, 2/6 RADHA LLSB chest - port Left Upper chest clean, no erythema lungs - fine dry rales both bases; minimal on Left, about 1/[address] to [address] right back; no wheezes; no increased work of breathing abd - soft NT ND BS+; ?mild splenomegaly ext - no edema, pulses b/l feet 2+ neuro - strength 5/5 x 4 exts psych - a/o x 3 Results & Data Results & Data Vital Signs (Past 12 Hours) Vital Signs Temp Pulse Resp BP Pulse Ox O2 Del Method 02/26/25 12:11 102 H 02/26/25 10:10 38.4 C H 85 20 127/64 94 Room Air Laboratory Results Laboratory Results - last 24 hr 02/26/25 02/26/25 02/26/25 10:47 11:35 11:55 WBC 0.59 L* RBC 2.51 L Hgb 7.3 L Hct 22.2 L MCV 88.4 MCH 29.1 MCHC 32.9 RDW Std Deviation 61.1 H RDW Coeff of Colette 18.9 H Plt Count 185 MPV 10.0 Immature Gran % (Auto) 1.7 Neut % (Auto) 6.7 Lymph % (Auto) 42.4 Isabela % (Auto) 37.3 Eos % (Auto) 10.2 Baso % (Auto) 1.7 Neut # (Auto) 0.04 L* Lymph # (Auto) 0.25 L Isabela # (Auto) 0.22 Eos # (Auto) 0.06 Baso # (Auto) 0.01 Immature Gran # (Auto) 0.01 Sodium 129 L Potassium 3.0 L Chloride 95 L Carbon Dioxide 27 Anion Gap 7 BUN 12 Creatinine 0.50 L Est Cr Clr Drug Dosing 90.2 eGFR 98.97 BUN/Creatinine Ratio 24.0 H Glucose 100 H Lactate 1.1 Calcium 8.2 L Magnesium 1.4 L Total Bilirubin 0.7 Direct Bilirubin 0.2 AST 19 ALT 14 Alkaline Phosphatase 78 Troponin I High Sens 18.4 H Total Protein 5.9 L Albumin 3.2 L Procalcitonin 0.93 H Urine Color Yellow Urine Appearance Clear Urine pH 7.5 Ur Specific [place] 1.020 Urine Protein 1+ H Urine Glucose (UA) Negative Urine Ketones Negative Urine Blood Negative Urine Nitrite Negative Urine Bilirubin Negative Urine Urobilinogen Negative Ur Leukocyte Esterase Negative Urine RBC 0-2 Urine WBC 0-5 Ur Epithelial Cells 0-2 Urine Bacteria 1+ H Diagnostic Findings Chest X-Ray 02/26/25 10:24 XR chest 1V portable CLINICAL HISTORY: Sepsis COMPARISON STUDY: 12/17/2024 FINDINGS: Stable chest port. Heart size and pulmonary vasculature are normal. There is an interval small area of patchy opacity lateral right lung base. No other consolidation or pleural effusion. No pneumothorax. IMPRESSION: Early pneumonia right lung base. ACT 112: Negative or not required by law. Electronically signed by: Aramis Martinez M.D. 02/26/2025 10:47 AM Code Status & VTE Plan Code Status DNR/DNI PG Care Time/CCT Total # of Minutes Spent Total Time Spent with Patient: Total time spent is greater than 50% in coordination of care (as documented) at patient's floor/unit and/or counseling patient: Coding Level of Care Code 94397 INT INP/OBS CARE 3/75MIN Diagnoses RLL pneumonia J18.9 Neutropenic fever D70.9; R50.81 Sepsis A41.9 Chemotherapy induced neutropenia D70.1; T45.1X5A Acute respiratory failure with hypoxia J96.01 Diffuse large B cell lymphoma C83.30 Hyponatremia E87.1 Hypomagnesemia E83.42 Hypothyroidism E03.9 GERD without esophagitis K21.9 Dyslipidemia E78.5 CREST (calcinosis, Raynaud's phenomenon, esophageal dysfunction, sclerodactyly, telangiectasia) M34.1 ILD (interstitial lung disease) J84.9 Hypokalemia E87.6 Anemia D64.9 Anemia type: unspecified type (15) Anemia Anemia type: unspecified type Qualified Code(s): D64.9 - Anemia, unspecified
[2025-02-26] MEDS: POTASSIUM CHLORIDE / WTR 10 MEQ/100 ML PLCT IV SCH (12:44)
[2025-02-26] MEDS: SODIUM CHLORIDE 0.9% 500 ML IV ONE (12:44)
[2025-02-26] MEDS: MAGNESIUM SULFATE / D5W 1 GM/100 ML BAG IV SCH (12:44)
[2025-02-26 12:45] LABS: Appearance Urine Clear (Clear); Bilirubin Urine Negative (Negative); Blood Urine Negative (Negative); Color Urine Yellow; Glucose Urine UA Negative (Negative); Ketones Urine Negative (Negative); Leukocyte Esterase Urine Negative (Negative); Nitrite Urine Negative (Negative); Protein Urine 1+ (Negative); Urobilinogen Urine Negative (Negative); pH Urine 7.5 (4.5-7.5)
[2025-02-26] MEDS ORDERED: VANCOMYCIN CONSULT ACTIVE PRN (12:48)
[2025-02-26 13:04] LABS: Bacteria Urine 1+ (None Seen); Epithelial Cell Urine 0-2 /hpf (0-2); RBC Urine 0-2 /hpf (0-2); WBC Urine 0-5 /hpf (0-5)
[2025-02-26] MEDS: DOXYCYCLINE HYCLATE 100 MG in DEXTROSE 5% MINI-B 100 ML IV STA (13:32)
[2025-02-26 14:10] LABS: Adenovirus PCR Not Detected (NotDetected); Bordetella parapertussis PCR Not Detected (NotDetected); Bordetella pertussis PCR Not Detected (NotDetected); Chlamydia pneumoniae PCR Not Detected (NotDetected); Coronavirus 229E PCR Not Detected (NotDetected); Coronavirus CoV-2 (COVID19)PCR Not Detected (NotDetected); Coronavirus HKU1 PCR Not Detected (NotDetected); Coronavirus NL63 PCR Not Detected (NotDetected); Coronavirus OC43PCR Not Detected (NotDetected); Human Metapneumovirus PCR Not Detected (NotDetected); Influenza A PCR Not Detected (NotDetected); Influenza B PCR Not Detected (NotDetected); Mycoplasma pneumoniae PCR Not Detected (NotDetected); Parainfluenza Virus 1 PCR Not Detected (NotDetected); Parainfluenza Virus 2 PCR Not Detected (NotDetected); Parainfluenza Virus 3 PCR Not Detected (NotDetected); Parainfluenza Virus 4 PCR Not Detected (NotDetected); Respiratory Syncytial VirusPCR Not Detected (NotDetected); Rhinovirus/Enterovirus PCR Not Detected (NotDetected)
[2025-02-26] MEDS ORDERED: ONDANSETRON INJ 2 MG/ML 2 ML VIAL IV PRN (14:26)
[2025-02-26] MEDS ORDERED: ALBUTEROL HFA 8 GM INHALER INH PRN (14:26)
[2025-02-26] MEDS ORDERED: BENZONATATE 100 MG CAPSULE PO PRN (14:26)
[2025-02-26] MEDS ORDERED: SODIUM CHLORIDE 0.9% 100 ML IV PRN (15:18)
[2025-02-26] MEDS: VANCOMYCIN HCL 1,250 MG in SODIUM CHLORIDE 0.9% 250 ML IV STA (15:31)
--- NOTE | 2025-02-26 15:43 | Pharmacy Report ---
Pharmacy PK ABX Note - Date of Service February 26, 2025 - Assessment and Plan Assessment * 74 year old F receiving cefepime and vancomycin for treatment of neutropenic fever, pneumonia. * Pertinent microbiologic data includes: blood and urine cultures pending, nasal MRSA pending Plan Vancomycin * Loading dose: 1250 mg IV x 1 * Maintenance dose: 1000 mg IV every 12 hours * Regimen is predicted to achieve target AUC/CAMILO of 400-600 mg/L.hr * Random level ordered for: 02/28 @ 0800 Pharmacy will continue to follow and will adjust dose/frequency as necessary. Thank you. Pharmacy has transitioned to AUC monitoring for vancomycin. AUC/CAMILO is the preferred PK/PD target and is associated with decreased risk of nephrotoxicity compared to traditional trough targets.
[2025-02-26] MEDS: ACETAMINOPHEN 325 MG TAB PO PRN (16:40)
--- OUTSIDE RECORDS SUMMARY | 2025-02-26 17:06 | External Medical Summary ---
Author Name Unknown Address Unknown Organization K09:[facility] [place] [address] Laboratory Report Ordering Provider Test Date Status ERIN FLORES 02/26/2025 07:55:07 Final Observation Date Value Abnormality Reference (Units ) Status WBC, Total 02/26/2025 07:55:07 0.58 Below lower panic limits 4.00-10.80 (K/uL) Final Results rechecked. RBC 02/26/2025 07:55:07 2.71 3.85-5.15 (M/uL) Final Hemoglobin 02/26/2025 07:55:07 8.0 Below low normal 12 .0-15.3 (g/dL) Final HCT 02/26/2025 07:55:07 25.5 Below low normal 36. 0-45.2 (%) Final MCV 02/26/2025 07:55:07 94.1 81.5-97.5 (fL) Final MCH 02/26/2025 07:55:07 29.5 27.0-34.0 (pg) Final MCHC 02/26/2025 07:55:07 31.4 32.0-36.0 (g/dL) Final RDW 02/26/2025 07:55:07 18.8 11.5-15.5 (%) Final Platelets 02/26/2025 07:55:07 204 140-400 (K /uL) Final MPV 02/26/2025 07:55:07 9.8 6.6-11.1 ( fL) Final Performing Location [facility] [place] [place] [address]
--- OUTSIDE RECORDS SUMMARY | 2025-02-26 17:06 | External Medical Summary ---
Author Name Unknown Address Unknown Organization K09:[facility] [place] [place] [address] Laboratory Report Ordering Provider Test Date Status ERIN FLORES 02/26/2025 07:55:07 Final Observation Date Value Abnormality Reference (Units ) Status Nucleated erythrocytes/100 leukocytes [Ratio] in Blood by Automated count 02/26/2025 07:55:07 Final Elliptocytes [Presence] in Blood by Light microscopy 02/26/2025 07:55:07 Moderate Abnormal None Seen Final Performing Location [facility] [place] [address]
--- OUTSIDE RECORDS SUMMARY | 2025-02-26 17:06 | External Medical Summary | Summary of Care ---
Author Name Unknown Organization [facility] Address [address] [facility] [place] [address] Phone [phone] Care Team Providers Care Fruit Or Nut Farmworker Name Role Phone Stephany Gilbert Primary Care Provider Reason for Visit * Reason Comments Procedure Labs from port Encounter Details Date Type Department Care Team (Late st Contact Info) Description 02/26/2025 8:00 AM EDT Nurse Only Hematology/Oncology Treatment, [place] 200 [facility] [place] [phone] Park, Chair 5 Hem Onc [facility] 200 [place] [address] Procedure (Labs from port) Allergies Active Allergy Reactions Criticality Noted Date Comments Nickel Rash 03/11/2015 documented as of this encounter (statuses as of 02/26/2025) Medications CALTRATE 600 + D 600-125 MG-IU [...] Active Additional Information Patient not taking.Reported on 12/05/2024 Valsartan 80 MG Oral Tablet (Diovan) Take 1 Tablet by mouth in the morning. Active Rosuvastatin Calcium 10 MG Oral Tablet [...] prior to breakfast or other meds) Active Fish Oil 1000 MG Oral Capsule 1 Capsule. Active Ondansetron HCl 8 MG Oral Tablet [...] for Nausea. 30 Tablet 3 5 Active Lidocaine-Priloc cande 2.5-2.5 % External Cream (Emla)Indication s: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) APPLY TO SKIN OVER MEDIPORT & COVER 1HR PRIOR TO ACCESSING. 30 g 1 5 Active predniSONE 50 MG Oral Tablet (Deltasone)Indic ations: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) Take 100mg (2 tablets) once a day on days 1-5 of each cycle 10 Tablet 5 5 Active Acyclovir 400 MG Oral Tablet (Zovirax)Indicat ions: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) Take 1 Tablet by mouth in the morning and 1 Tablet before bedtime. 180 Tablet 3 5 Active Potassium Chloride ER 10 MEQ Oral Tablet Extended ReleaseIndicatio ns:Diarrhea, unspecified type,Hypokalemia Take 2 Tablets by mouth in the morning. 60 Tablet 1 5 Active Additional Information Patient not taking.Reported on 02/14/2025 documented as of this encounter (statuses as of 02/26/2025) Active Problems Problem Noted Date Diagnosed Date Diarrhea 02/06/2025 Dehydration 02/06/2025 Hypokalemia 02/06/2025 Encounter for adjustment and management of vascular access device 01/08/2025 Prevention of chemotherapy-induced neutropenia 0 12/31/2024 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 11/29/2024 Encounter for antineoplastic chemotherapy 2024 BREAST CANCER UNSPECIFIED,FEMALE 10/25/2008 Other iron deficiency anemia Overview (08/15/2017): ICD-10 update of inactive term Osteoporosis documented as of this encounter (statuses as of 02/26/2025) Resolved Problems Problem Noted Date Diagnosed Date Resolved Date Other iron deficiency anemia 12/19/2008 Overview (08/15/2017): Resolved per Duplicate Protocol #2. ICD-10 update of inactive term documented as of this encounter (statuses as of 02/26/2025) Social History Tobacco Use Types Packs/Day Years [...] on file documented as of this encounter Nursing Notes * Eusebia Swain, RN - 02/26/2025 8:16 AM EDT Chair 7, patient here for labs from port. VAD accessed without difficulty, + blood return noted, waste tube drawn, labs drawn. flushed with 20 ml NSS and dressing applied. Will await lab results. documented in this encounter Plan of Treatment Upcoming Encounters Date Type Department Care Team (Late st Contact Info) Description 03/05/2025 8:00 AM EDT Nurse Only Hematology/Oncology Treatment, [address], [place] [address] [place], Chair 9 Hem Onc [place] 200 [facility] [place] [address] 03/05/2025 9:00 AM EDT Nurse Only Hematology/Oncology Scenery [place] [address] [place] [phone] Park, Nurse Hem Onc Sc[place] 200 [facility] [place] [address] 03/12/2025 12:00 PM EDT Nurse Only Hematology/Oncology Treatment, [address], [place] [address] [place], Chair 4 Hem Onc [place] 200 [facility] [place] [address] 03/12/2025 12:30 PM EDT Office Visit Hematology/Oncology [facility] [place] 200 [facility] [place], [place] [address] Logan Plummer MD 200 [facility] [place], [place] [address] 03/12/2025 1:00 PM EDT Hem/Onc Treatment Hematology/Oncology Treatment, [address], [place] [address] [place], Chair 4 Hem Onc Scen[place] 200 [place] [address] Scheduled Procedures Name Priority Associated Diagnoses Date/Ti me COLONOSCOPY FLEXIBLE PROXIMA L DIAGNOSTIC Recall Special screening for malignant neoplasms, [...] D LEVEL ONCE IN A LIFETIME-USE SMARTSET# 03873 Completed 10/25/2008 Pneumococcal Vaccine: 50+ Years Completed [...] on patient's age to complete this topic Meningitis B Vaccine (Bexsero/Trumemba) Aged Out No longer eligible based on patient's age to complete this topic documented as of this encounter Medical Devices Implanted Type Area Pantographer Device Identifier Shelf Expiration Date Model / Serial / Lot Power Port 8fr Sngl Lumen Plas - [id number] Implanted:Qty : 1 on 12/05/2024 by Taco Sanchez MD at [facility] Left: Chest CR BARD : PERIPHERAL VASCULAR [id number] 07/14/2025 [id number] / / [id number] documented as of this encounter Procedures Procedure Name Priority Date/Time Associated Diagnosis Comments DIFFERENTIAL, AUTOMATED STAT 02/26/2025 7:55 AM EDT Diarrhea, unspecified type 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) COMPREHENSIVE METABOLIC PANEL STAT 02/26/2025 7:55 AM EDT Diarrhea, unspecified type 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) CBC STAT 02/26/2025 7:55 AM EDT Diarrhea, unspecified type 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) CBC STAT 02/26/2025 7:55 AM EDT Diarrhea, unspecified type 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) DIFFERENTIAL, TECHNOLOGIST REVIEW Routine 02/26/2025 7:55 AM EDT Diarrhea, unspecified type 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) MAGNESIUM STAT 02/26/2025 7:55 AM EDT Diarrhea, unspecified type 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) documented in this encounter Results * (ABNORMAL) DIFFERENTIAL, TECHNOLOGIST REVIEW (02/26/2025 7:55 AM EDT) nRBCs 02/26/2025 8:40 AM EDT [facility] 56-02 Elliptocytes Moderate(A ) None Seen 02/26/2025 8:40 AM EDT [facility] 56-02 Blood Venous blood specimen / Unknown Central Line / Unknown 02/26/2025 7:55 AM EDT 02/26/2025 8:17 AM EDT us Logan Plummer MD LAB BLOOD ORDERABLES Final Res ult [facility] [address]- [address] [place] [address] * DIFFERENTIAL, AUTOMATED (02/26/2025 7:55 AM EDT) Blood Venous blood specimen / Unknown Central Line / Unknown 02/26/2025 7:55 AM EDT 02/26/2025 8:17 AM EDT Narrative [facility] 56-02 - 02/26/2025 8:40 AM EDT WBC < 0.60, WBC differential cancelled. Please call Client Services if differential is required. us Logan Plummer MD LAB BLOOD ORDERABLES Final Res ult [facility] [address] [place] [address] * (ABNORMAL) CBC (02/26/2025 7:55 AM EDT) WBC 0.58(LL) 4.00 - 10.80 K/uL 02/26/2025 8:40 AM EDT [facility] 56 Comment:Results rechecked. RBC 2.71 3.85 - 5.15 M/uL 02/26/2025 8:40 AM EDT [facility] 56- HGB 8.0(L) 12.0 - 15.3 g/dL 02/26/2025 8:40 AM EDT [facility] 56 HCT 25.5(L) 36.0 - 45.2 % 02/26/2025 8:40 AM EDT [facility] 56 MCV 94.1 81.5 - 97.5 fL 02/26/2025 8:40 AM EDT [facility] 56- MCH 29.5 27.0 - 34.0 pg 02/26/2025 8:40 AM EDT [facility] 56 MCHC 31.4 32.0 - 36.0 g/dL 02/26/2025 8:40 AM EDT [facility] 56 RDW 18.8 11.5 - 15.5 % 02/26/2025 8:40 AM EDT [facility] 56 PLT 204 140 - 400 K/uL 02/26/2025 8:40 AM EDT [facility] 56 MPV 9.8 6.6 - 11.1 fL 02/26/2025 8:40 AM EDT [facility] 56 Blood Venous blood specimen / Unknown Central Line / Unknown 02/26/2025 7:55 AM EDT 02/26/2025 8:17 AM EDT us Logan Plummer MD LAB BLOOD ORDERABLES Final Res ult [facility] [address] [place], [place] [id number] * (ABNORMAL) COMPREHENSIVE METABOLIC PANEL (02/26/2025 7:55 AM EDT) BUN 13 6 - 20 mg/dL 02/26/2025 8:37 AM EDT [address] CREATININE 0.5 0.5 - 1.0 mg/dL 02/26/2025 8:37 AM EDT [address] EGFR >90 >=60 mL/min 02/26/2025 8:37 AM T [facility] 56 Comment:eGFR is calculated b ased on the CKD-EPI 2020 equation. SODIUM 135 135 - 146 mmol/L 02/26/2025 8:37 AM T [facility] 56 POTASSIUM 3.1(L) 3.5 - 5.1 mmol/L 02/26/2025 8:37 AM EDT [facility] 56- CHLORIDE 98 98 - 107 mmol/L 02/26/2025 8:37 AM EDT [facility] 56 CO2 23 22 - 32 mmol/L 02/26/2025 8:37 AM EDT [facility] 56 ANION GAP 14 7 - 15 mmol/L 02/26/2025 8:37 AM EDT [facility] 56 GLUCOSE 115 70 - 120 mg/dL 02/26/2025 8:37 AM EDT [facility] 56 Albumin 3.2(L) 3.8 - 5.0 g/dL 02/26/2025 8:37 AM EDT [facility] 56 AST 23 10 - 35 U/L 02/26/2025 8:37 AM EDT [facility] 56 Alkaline Phosphatase 96 35 - 130 U/L 02/26/2025 8:37 AM EDT [facility] 56 Bilirubin, Total 0.6 <=1.2 mg/dL 02/26/2025 8:37 AM EDT [facility] 56 CALCIUM 8.9 8.4 - 10.2 mg/dL 02/26/2025 8:37 AM EDT [facility] 56 Protein 6.2 6.0 - 8.3 g/dL 02/26/2025 8:37 AM EDT [address] ALT 13 10 - 35 U/L 02/26/2025 8:37 AM EDT [facility] 56 Blood Venous blood specimen / Unknown Central Line / Unknown 02/26/2025 7:55 AM EDT 02/26/2025 8:17 AM EDT Logan Plummer MD LAB BLOOD ORDERABLES Final Res ult [facility] 56 [address] [place] [address] * MAGNESIUM (02/26/2025 7:55 AM EDT) Magnesium 1.6 1.5 - 2.6 mg/dL 02/26/2025 8:37 AM EDT [place] [address] Blood Venous blood specimen / Unknown Central Line / Unknown 02/26/2025 7:55 AM EDT 02/26/2025 8:17 AM EDT Logan Plummer MD LAB BLOOD ORDERABLES Final Res ult [facility] 56 [address] [place] [address] documented in this encounter Visit Diagnoses Diagnosis Encounter for adjustment and management of vascular access device- Primary Diarrhea, unspecified type 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) documented in this encounter Administered Medications Inactive Administered Medications - up to 3 most recent administrations Medication Order MAR Action Action Date Dose Rate Site sodium chloride 0.9 % flush/inj 20 mL 20 mL, IV Push, PRN IV Flush and Lock, Starting on Tue02/26/25 at 0812, Until Tue02/26/25 at 0856, Do not flush if lock, PICC, or central line not in place; IV infusing or unable to flush. For midlines and central lines. For IV Flush and Lock, IVAD is flushed with a total of 20 mL Normal Saline, 10 mL of Normal Saline Flush with 10 mL of Normal Saline acting as IV LOCK.Indications: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),Encounter for adjustment and management of vascular access device Given 02/26/2025 8:12 AM EDT 20 mL documented in this encounter Care Teams Fruit Or Nut Farmworker Relationship Specialty Start Date End Date Stephany Gilbert CRNP [address] [place] [address] [place] [address] PCP - General Nurse Practitioner 02/02/23 documented as of this encounter
--- OUTSIDE RECORDS SUMMARY | 2025-02-26 17:06 | External Medical Summary | Summary of Care ---
Author Name Unknown Organization [facility] Address [address] [facility] [place] [address] Phone [phone] Care Team Providers Care Regional Refrigerated Cdl Truck Driver Name Role Phone Stephany Gilbert Primary Care Provider Encounter Details Date Type Department Care Team (Late st Contact Info) Description 02/26/2025 Refill Hematology/Oncology Treatment, [address] [phone] Mark Plummer MD 200 [place] [address] 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)*; Chemotherapy-induced neutropenia (HCC); Hypokalemia Allergies Active Allergy Reactions Criticality Noted Date [...] Additional Information Patient not taking.Reported on 02/14/2025 levoFLOXacin 500 MG Oral Tablet (Levaquin)Indica tions: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),Chemothera py-induced neutropenia (HCC) Take 1 Tablet by mouth in the morning. 7 Tablet 5 Active documented as of this encounter [...] Telephone Encounter - Nadiya Granados RN - 02/26/2025 10:00 AM EDTSigned Prescriptions: Disp Refills levoFLOXacin 500 MG Oral Tablet (Levaquin) 7 Tabl*0 Sig: Take 1 Tablet by mouth in the morning.Authorizing Provider: MARK PLUMMER * Telephone Encounter - Mark Plummer MD - 02/26/2025 8:59 AM EDT -e-prescribed Levaquin IV potassium 20 mEq x 1 dose, she will continue oral potassium supplementation. * Telephone Encounter - Nadiya Granados RN - 02/26/2025 8:47 AM EDT WBC 0.58- patient received fulphila 02/20, per Dr Plummer have patient start prophylactic levaquin x7 days K 3.1- patient on 20mEq KCl daily, per Dr Plummer give 20mEq KCl IV today Dr Plummer: - please sign rx for levaquin - please place order for 20mEq KCl IV today Thanks! documented in this encounter Plan of Treatment Upcoming Encounters Date Type Department Care Team (Late st Contact Info) Description 03/05/2025 8:00 AM EDT Nurse Only Hematology/Oncology Treatment, [place] 200 [place] [phone] Park, Chair 9 Hem Onc Sc[address] [place], [place] [address] 03/05/2025 9:00 AM EDT Nurse Only Hematology/Oncology Scenery [place] [address] [place] [phone] [place], Nurse Hem Onc Scenery [address] [place], [place] [address] 03/12/2025 12:00 PM EDT Nurse Only Hematology/Oncology Treatment, [place] 200 [facility], [place] [phone] [place], Chair 4 Hem Onc Scenery 200 [facility] [place] [address] 03/12/2025 12:30 PM EDT Office Visit Hematology/Oncology [place]ery [place] [address] [place], [place] [phone] Mark Plummer MD [address] [place], [place] [address] 03/12/2025 1:00 PM EDT Hem/Onc Treatment Hematology/Oncology Treatment, [place] 200 [facility], [place] [phone] [place], Chair 4 Hem Onc Scenery 200 [facility] [place], [place] [address] Scheduled Procedures Name Priority Associated Diagnoses Date/Ti [...] D LEVEL ONCE IN A LIFETIME-USE SMARTSET# 85301 Completed 10/25/2008 Pneumococcal Vaccine: 50+ Years Completed [...] this encounter Medical Devices Implanted Type Area Solid State Tester Device Identifier Shelf Expiration Date Model / Serial / Lot Power Port 8fr Sngl Lumen Plas - [id number] Implanted:Qty : 1 on 12/05/2024 by Taco Sanchez MD at [facility] Left: Chest CR BARD : PERIPHERAL VASCULAR [id number] 07/14/2025 [id number] / / [id number] documented as of this encounter Visit Diagnoses Diagnosis 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)- Primary Chemotherapy-induced neutropenia (HCC) Drug induced neutropenia Hypokalemia Hypopotassemia documented in this encounter Care Teams Regional Refrigerated Cdl Truck Driver Relationship Specialty Start Date End Date Stephany Gilbert CRNP [address] [place] [address] [place] [address] PCP - General Nurse Practitioner 02/02/23 documented as of this encounter
--- OUTSIDE RECORDS SUMMARY | 2025-02-26 17:06 | External Medical Summary | Summary of Care ---
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) Prevention of chemotherapy-induced neutropenia Procedures PA INJECTION, RITUXIMAB-PVVR, BIOSIMILAR, (RUXIENCE), 10 MG PA INJ CYCLOPHOSPHAMD AUROMEDIC PA BRENTUXIMAB VEDOTIN INJ PA INJECTION, Logan Person MD [address] [place], [place] [address] Phone: tel: fax: Hematology/Oncology Treatment, [address] [place] [address] Phone: tel: fax: Referral ID Status Reason Start Date Expiration Date V isits Requested Visits Authorized [id number] Authorized 11/29/2024 11/13/2099 [id number] Encounter Details Date Type Department Care Team (Latest Contact Info) Description 01/29/2025 8:30 AM EDT Hem/Onc Treatment Hematology/Oncolog y Treatment, [address] [place] [address] [place], Chair 7 Hem Onc Scenery [address] [place] [id number] Encounter for antineoplastic chemotherapy*; 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 180 Tablet 3 5 Active documented as of this encounter (statuses as of 02/24/2025) Active Problems Problem Noted Date Diagnosed Date Encounter for adjustment and management of vascular access device 01/08/2025 Prevention of chemotherapy-induced neutropenia 0 12/31/2024 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 11/29/2024 Encounter for antineoplastic chemotherapy 2024 BREAST CANCER UNSPECIFIED,FEMALE 10/25/2008 Other iron deficiency anemia Overview (08/15/2017): ICD-10 update of inactive term Osteoporosis documented as of this encounter (statuses as of 02/24/2025) Resolved Problems Problem Noted Date Diagnosed Date Resolved Date Other iron deficiency anemia 12/19/2008 Overview (08/15/2017): Resolved per Duplicate Protocol #2. ICD-10 update of inactive term documented as of this encounter (statuses as of 02/24/2025) Social History Tobacco Use Types Packs/Day Years [...] of this encounter Nursing Notes * Eusebia Swain RN - 01/29/2025 1:26 PM EDT Infusion complete. Patient tolerated well. No complaints. Port needle flushed with 10 ml NSS, blood return noted, and port locked with additional 10 ml NSS. Boston needle removed, intact, gauze dressing applied. Goals: Patient will remain free from injury. Possible barriers to meeting goals: ambulating with IV pole, use of walker Stability of the patient: Moderately stable - low risk of patient condition declining or worsening Summary regarding today's goals: Met: Patient remained free from harm/injury during treatment. Patient left facility in stable condition. * Eusebia Swain, RN - 01/29/2025 8:51 AM EDT Chair 7, patient here for treatment following provider visit. Patient with no complaints. Port was accessed earlier today for lab work, dressing intact, flushes easily, + blood return. Chemotherapy/Immunotherapy agents: Brentuximab, CYTOXAN, and RITUXIMAB Consent for chemotherapy drug treatment complete, dated, and signed? yes, date - 11/29/24 Treatment lab parameters met? Yes Has treatment weight changed > than 10%? No Treatment preauthorized? Yes VITALS Filed Vitals: BP Readings from Last 2 Encounters: 01/29/25 123/68 01/08/25 97/61 Pulse Readings from Last 2 Encounters: 01/29/25 101 01/08/25 77 Resp Readings from Last 2 Encounters: 01/08/25 16 12/31/24 18 SpO2 Readings from Last 2 Encounters: 01/29/25 90% 01/08/25 94% Temp Readings from Last 2 Encounters: 01/29/25 37.4 °C (99.4 °F) (Tympanic) 01/08/25 36.7 °C (98.1 °F) (Tympanic) Urine protein: N/A Patient education completed for treatment? Yes Blood transfusion consent signed and complete? NA Return appointment scheduled? Yes Patient had provider visit today? Yes - Ok to release order and treat per provider Functional Status: Functional status at today's visit: Fully active, able to carry on all pre-disease performance without restriction The drug name, dose, infusion volume, rate and route of administration, expiration date and time, appearance and physical integrity of the drug and rate set on the pump and sequencing of drug administration (as applicable) were verified by me and second sign-in RN. Patient was assessed for symptoms or adverse side effects during treatment. Patient Education: Patient instructed on use of heat and massage functions where applicable. Patient shown how to operate the heat function of the chair and to alert nursing staff if the chair feels too warm. Patient instructed on the risk of potential rose while using the heat function. Safety and Risk for Injury Patient will remain free from injury. Ensure appropriate safety devices are available. Provide and maintain safe environment. documented in this encounter Plan of Treatment Upcoming Encounters Date Type Department Care Team (Late st Contact Info) Description 02/26/2025 8:00 AM EDT Nurse Only Hematology/Oncology Treatment, [place] [address] [place] [phone] [place], Chair 5 Hem Onc Scenery [address] [place] [id number] 02/26/2025 9:00 AM EDT Nurse Only Hematology/Oncology Scenery [place]ai Mccracken [address] [place] [phone] [place] Nurse Hem Onc Scenery [address] [place] [address] 03/05/2025 8:00 AM EDT Nurse Only Hematology/Oncology Treatment, [place] [address] [facility], [place] [phone] [place], Chair 9 Hem Onc Scenery [address] [place], [place] [address] 03/05/2025 9:00 AM EDT Nurse Only Hematology/Oncology Scenery [place] [address] [place], [place] [address] [place], Nurse Hem Onc Scenery [address] [place], [place] [address] 03/12/2025 12:00 PM EDT Nurse Only Hematology/Oncology Treatment [place] [address] [facility], [place] [phone] [place], Chair 4 Hem Onc Scenery [address] [place], [place] [address] 03/12/2025 12:30 PM EDT Office Visit Hematology/Oncology [facility] [place] [address] [place], [place] [phone] Logan Plummer MD [address] [place], [place] [address] 03/12/2025 1:00 PM EDT Hem/Onc Treatment Hematology/Oncology Treatment, [address], [place] [phone] [place], Chair 4 Hem Onc Scenery [address] [place] [address] Scheduled Procedures Name Priority Associated Diagnoses Date/Ti [...] D LEVEL ONCE IN A LIFETIME-USE SMARTSET# [id number] Completed 10/25/2008 Pneumococcal Vaccine: 50+ Years Completed [...] this encounter Medical Devices Implanted Type Area Shaker Operator Device Identifier Shelf Expiration Date Model / Serial / Lot Power Port 8fr Sngl Lumen Plas - [id number] Implanted:Qty : 1 on 12/05/2024 by Taco Sanchez MD at OR [facility] Left: Chest CR BARD : PERIPHERAL VASCULAR [id number] 07/14/2025 [id number] / / [id number] documented as of this encounter Visit Diagnoses Diagnosis Encounter for antineoplastic chemotherapy- Primary 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) Prevention of chemotherapy-induced neutropenia documented in this encounter Administered Medications Inactive Administered Medications - up to 3 most recent administrations Medication Order MAR Action Action Date Dose Rate Site Acetaminophen (Tylenol) tab 650 mg 650 mg, Oral, ONCE, On Tue01/29/25 at 0930, For 1 dose, Maximum of 4 grams (4000 mg) per day.Indications:Encounter for antineoplastic chemotherapy,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),Prevention of chemotherapy-induced neutropenia Given 01/29/2025 9:00 AM EDT 650 mg BRENtuximab vedotin (Adcetris) 114.3 mg in NSS 100 mL infusion 114.3 mg (1.8 mg/kg 63.5 kg Treatment plan Recorded weight), IV Piggyback, ONCE, 1 dose, On Tue01/29/25 at 1100, Administer over 30 Minutes, Max Dose 180mgIndications:Encounter for antineoplastic chemotherapy,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),Prevention of chemotherapy-induced neutropenia Start Infusion 01/29/2025 12:44 PM EDT 114.3 mg 255.72 mL/hr cycloPHOSphamide (Cytoxan) 1,280 mg in NSS 500 mL infusion 1,280 mg (rounded from 1,282.5 mg = 750 mg/m2 1.71 m2 Treatment Plan BSA from Recorded weight), IV Piggyback, ONCE, On Tue01/29/25 at 1030, For 1 dose, Cyclophosphamide doses over 1g should be in 500 mL.May extend infusion to 1 hour if not tolerated.Indications:Enco unter for antineoplastic chemotherapy,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),Prevention of chemotherapy-induced neutropenia Start Infusion 01/29/2025 10:07 AM EDT 1,280 mg 1032.8 mL/hr diphenhydrAMINE (Benadryl) cap 50 mg 50 mg, Oral, ONCE, On Tue01/29/25 at 0930, For 1 doseIndications:Encounter for antineoplastic chemotherapy,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),Prevention of chemotherapy-induced neutropenia Given 01/29/2025 9:00 AM EDT 50 mg Famotidine (Pepcid) tab 20 mg 20 mg, Oral, ONCE, On Tue01/29/25 at 0930, For 1 doseIndications:Encounter for antineoplastic chemotherapy,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),Prevention of chemotherapy-induced neutropenia Given 01/29/2025 9:00 AM EDT 20 mg NSS infusion 500 mL, Intravenous, at 50 mL/hr, CONTINUOUS, Starting on Tue01/29/25 at 1030, Until Tue01/29/25 at 1735Indications:Encounter for antineoplastic chemotherapy,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),Prevention of chemotherapy-induced neutropenia Continue on Pump 01/29/2025 12:21 PM EDT 50 mL/hr Start Infusion 01/29/2025 9:00 AM EDT 500 mL 50 mL/hr ondansetron (Zofran) tab 8 mg 8 mg, Oral, ONCE, On Tue01/29/25 at 0930, For 1 doseIndications:Encounter for antineoplastic chemotherapy,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 For midlines and central lines. 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
--- OUTSIDE RECORDS SUMMARY | 2025-02-26 17:06 | External Medical Summary ---
Author Name Unknown Address Unknown Organization K09:[facility] [place] [address] Laboratory Report Ordering Provider Test Date Status ERIN FLORES 02/26/2025 07:55:07 Final Observation Date Value Abnormality Reference (Units ) Status COMMENT 02/26/2025 07:55:07 WBC < 0.60, WBC differential cancelled. Please call Client Services if differential is required. Final Performing Location [facility] [place] [address]
--- OUTSIDE RECORDS SUMMARY | 2025-02-26 17:06 | External Medical Summary | Summary of Care ---
Author Name Unknown Organization [facility] Address [address] [facility] [place] [address] Phone [phone] Care Team Providers Care Aquaculturist Name Role Phone Stephany Gilbert Primary Care Provider Reason for Visit * Reason Comments Procedure Labs from port IV Therapy Hydration, Potassium IV Encounter Details Date Type Department Care Team (Late st Contact Info) Description 02/06/2025 8:00 AM EDT Nurse Only Hematology/Oncology Treatment, [address] [place] [phone] Kaykay, Chair 1 Hem Onc [facility] 200 [place] [address] Procedure (Labs from port); IV Therapy (Hy... Allergies Active Allergy Reactions Criticality Noted Date Comments Nickel Rash 03/11/2015 documented as of this encounter (statuses as of 02/23/2025) Medications CALTRATE 600 + D 600-125 MG-IU [...] as of this encounter (statuses as of 02/23/2025) Active Problems Problem Noted Date Diagnosed Date [...] as of this encounter (statuses as of 02/23/2025) Resolved Problems Problem Noted Date Diagnosed Date Resolved Date Other iron deficiency anemia 12/19/2008 Overview (08/15/2017): Resolved per Duplicate Protocol #2. ICD-10 update of inactive term documented as of this encounter (statuses as of 02/23/2025) Social History Tobacco Use Types Packs/Day Years [...] as of this encounter Nursing Notes * Yanira Muller RN - 02/06/2025 3:21 PM EDT Goals: Patient will remain free from injury. Possible barriers to meeting goals: ambulating with IV pole Stability of the patient: Moderately stable - low risk of patient condition declining or worsening Summary regarding today's goals: Met: pt remained free of harm today Patient tolerated treatment well without any acute issues or problems. Patient left facility in stable condition and denied any further needs. * Yanira Muller RN - 02/06/2025 3:18 PM EDT Potassium came back at 3.1 and hgb is 8.7 - improved for patient. Magnesium added on - 1.8 today. Patient is having diarrhea - educated about taking Imodium for symptoms - communicated understanding. Per Dr. Plummer, will give 1 L NSS over 2 hours along with 20 meq IV Potassium today. Will bring patient back Sunday 02/11 to recheck BMP. Patient also ordered PO Potassium to take as well. Patient willpick up after leaving here today. Patient connected to fluids, comfortable and denies further needs at this time. Safety and Risk for Injury Patient will remain free from injury. Ensure appropriate safety devices are available. Provide and maintain safe environment. * Yanira Muller RN - 02/06/2025 8:15 AM EDT Chair 7. Port accessed, no issues. Flushed with NSS and blood return noted, labs drawn from port per protocol, flushed again with 10 ml NSS and locked with 10 ml NSS. Port needle capped and clamped, left in place for after nurse visit. Patient is comfortable and denies further needs at this time. Patient instructed on use of heat and [...] 8:00 AM EDT Nurse Only Hematology/Oncology Treatment, [place] 200 [place] [address] Park, Chair 5 Hem Onc Scenery [address] [place] [address] 02/26/2025 9:00 AM EDT Nurse Only Hematology/Oncology Scenery Kaykay [place] [address] [place] [address] Park, Nurse Hem Onc Scenery [address] [place] [address] 03/05/2025 8:00 AM EDT Nurse Only Hematology/Oncology Treatment, [place] 200 [place] [address] Kaykay, Chair 9 Hem Onc Scenery [address] [place], [place] [address] 03/05/2025 9:00 AM EDT Nurse Only Hematology/Oncology Scenery [place] [address] [place] [address] Park, Nurse Hem Onc Scenery [address] [place] [address] 03/12/2025 12:00 PM EDT Nurse Only Hematology/Oncology Treatment, [place] [address] [place] [address] Kaykay, Chair 4 Hem Onc Scenery [address] [place] [address] 03/12/2025 12:30 PM EDT Office Visit Hematology/Oncology Scenery Kaykay [place] [address] [place] [address] Logan Plummer MD [address] [place] [address] 03/12/2025 1:00 PM EDT Hem/Onc Treatment Hematology/Oncology Treatment, [place] [address] [place] [address] Kaykay, Chair 4 Hem Onc Scenery [address] [place], [place] [address] Scheduled Procedures Name Priority Associated Diagnoses Date/Ti [...] D LEVEL ONCE IN A LIFETIME-USE SMARTSET# 16020 Completed 10/25/2008 Pneumococcal Vaccine: 50+ Years Completed [...] this encounter Medical Devices Implanted Type Area Sander Machine Device Identifier Shelf Expiration Date Model / Serial / Lot Power Port 8fr Sngl Lumen Plas - [id number] Implanted:Qty : 1 on 12/05/2024 by Taco Sanchez MD at OR [facility] Left: Chest CR BARD : PERIPHERAL VASCULAR [id number] 07/14/2025 [id number] / / [id number] documented as of this encounter Procedures Procedure Name Priority Date/Time Associated Diagnosis Comments COMPREHENSIVE METABOLIC PANEL STAT 02/06/2025 8:12 AM EDT 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) MAGNESIUM STAT 02/06/2025 8:12 AM EDT 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) Diarrhea DIFFERENTIAL, AUTOMATED STAT 02/06/2025 7:52 AM EDT 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) CBC STAT 02/06/2025 7:52 AM EDT 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) CBC STAT 02/06/2025 7:52 AM EDT 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) DIFFERENTIAL, TECHNOLOGIST REVIEW Routine 02/06/2025 7:52 AM EDT 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) documented in this encounter Results * MAGNESIUM (02/06/2025 8:12 AM EDT) Pathologist [facility] Magnesium 1.8 1.5 - 2.6 mg/dL 02/06/2025 9:35 AM EDT [facility] 56-02 Blood Blood sample taken from central line / Unknown Central Line / Unknown 02/06/2025 8:12 AM EDT 02/06/2025 8:20 AM EDT us Logan Plummer MD LAB BLOOD ORDERABLES Final Res ult [facility] 56-[address] [place] [address] * (ABNORMAL) COMPREHENSIVE METABOLIC PANEL (02/06/2025 8:12 AM EDT) Pathologist [facility] BUN 8 6 - 20 mg/dL 02/06/2025 8:47 AM [facility] 56 CREATININE 0.7 0.5 - 1.0 mg/dL 02/06/2025 8:47 AM [facility] 56 EGFR >90 >=60 mL/min 02/06/2025 8:47 AM [facility] 56 Comment:eGFR is calculated b ased on the CKD-EPI 2020 equation. SODIUM 137 135 - 146 mmol/L 02/06/2025 8:47 AM [facility] 56 POTASSIUM 3.1(L) 3.5 - 5.1 mmol/L 02/06/2025 8:47 AM [facility] 56 CHLORIDE 101 98 - 107 mmol/L 02/06/2025 8:47 AM [facility] 56 CO2 23 22 - 32 mmol/L 02/06/2025 8:47 AM [facility] 56 ANION GAP 13 7 - 15 mmol/L 02/06/2025 8:47 AM [facility] 56 GLUCOSE 132(H) 70 - 120 mg/dL 02/06/2025 8:47 AM [facility] 56 Albumin 3.4(L) 3.8 - 5.0 g/dL 02/06/2025 8:47 AM [facility] 56 AST 27 10 - 35 U/L 02/06/2025 8:47 AM [facility] 56 Alkaline Phosphatase 98 35 - 130 U/L 02/06/2025 8:47 AM [facility] 56 Bilirubin, Total 0.4 <=1.2 mg/dL 02/06/2025 8:47 AM [facility] 56 CALCIUM 9.1 8.4 - 10.2 mg/dL 02/06/2025 8:47 AM [facility] 56 Protein 6.4 6.0 - 8.3 g/dL 02/06/2025 8:47 AM [facility] 56 ALT 17 10 - 35 U/L 02/06/2025 8:47 AM [facility] 56 Blood Blood sample taken from central line / Unknown Central Line / Unknown 02/06/2025 8:12 AM EDT 02/06/2025 8:20 AM EDT us Logan Plummer MD LAB BLOOD ORDERABLES Final Res ult [facility] [address] [place], [place] [id number] * (ABNORMAL) DIFFERENTIAL, TECHNOLOGIST REVIEW (02/06/2025 7:52 AM EDT) WBC 5.29 4.00 - 10.80 K/uL 02/06/2025 8:44 AM EDT [facility] 56- Neutrophils % 15.0(L) 40.0 - 75.0 % 02/06/2025 8:44 AM EDT [facility] 56- Lymphocytes % 30.0 18.0 - 42.0 % 02/06/2025 8:44 AM EDT [facility] - Monocytes % 36.0(H) 1.0 - 11.0 % 02/06/2025 8:44 AM EDT [facility] 56- Eosinophils % 11.0(H) 0.0 - 6.0 % 02/06/2025 8:44 AM EDT [facility] - Basophils % 1.0 0.0 - 2.0 % 02/06/2025 8:44 AM EDT [facility] 56- Metamyelocytes % 4.0(H) <=0.0 % 02/07/20 8:44 AM EDT [facility] - Myelocytes % 3.0(H) <=0.0 % 02/06/2025 8:44 AM EDT [facility] 56- Absolute Neutrophils 0.79(L) 1.80 - 7.70 K/uL 02/06/2025 8:44 AM EDT [facility] 56-02 Absolute Lymphocytes 1.59 1.00 - 4.80 K/uL 02/06/2025 8:44 AM EDT [facility] 56 Absolute Monocytes 1.90(H) 0.00 - 1.10 K/uL 02/06/2025 8:44 AM EDT [facility] 56-02 Absolute Eosinophils 0.58 0.00 - 0.70 K/uL 02/06/2025 8:44 AM EDT [facility] 56- Absolute Basophils 0.05 0.00 - 0.20 K/uL 02/06/2025 8:44 AM EDT [facility] 56 Absolute Metamyelocytes 0.21(H) <=0.00 K/uL 02/06/2025 8:44 AM EDT [facility] 56 Absolute Myelocytes 0.16(H) <=0.00 K/uL 02/06/2025 8:44 AM EDT [facility] 56 nRBCs 1(H) <=0 /100 WBCs 02/06/2025 8:44 AM EDT [facility] 56 Acanthocytes Moderate( A) None Seen 02/06/2025 8:44 AM EDT [facility] 56 Elliptocytes Moderate( A) None Seen 02/06/2025 8:44 AM EDT [facility] 56 Polychromasia Moderate( A) None Seen 02/06/2025 8:44 AM EDT [facility] 56 Reactive Lymphocytes Present(A ) None Seen 02/06/2025 8:44 AM EDT [facility] 56 Blood Venous blood specimen / Unknown Central Line / Unknown 02/06/2025 7:52 AM EDT 02/06/2025 8:20 AM EDT us Logan Plummer MD LAB BLOOD ORDERABLES Final Res ult [facility] [address] [place] [address] * DIFFERENTIAL, AUTOMATED (02/06/2025 7:52 AM EDT) Blood Venous blood specimen / Unknown Central Line / Unknown 02/06/2025 7:52 AM EDT 02/06/2025 8:20 AM EDT us Logan Plummer MD LAB BLOOD ORDERABLES Final Res ult [facility] [address] [place] [address] * (ABNORMAL) CBC (02/06/2025 7:52 AM EDT) WBC 5.29 4.00 - 10.80 K/uL 02/06/2025 8:44 AM EDT [facility] 56 RBC 3.10 3.85 - 5.15 M/uL 02/06/2025 8:44 AM EDT [facility] 56 HGB 8.7(L) 12.0 - 15.3 g/dL 02/06/2025 8:44 AM EDT [facility] 56 HCT 29.0(L) 36.0 - 45.2 % 02/06/2025 8:44 AM EDT [facility] 56 MCV 93.5 81.5 - 97.5 fL 02/06/2025 8:44 AM EDT [facility] 56 MCH 28.1 27.0 - 34.0 pg 02/06/2025 8:44 AM EDT [facility] 56 MCHC 30.0 32.0 - 36.0 g/dL 02/06/2025 8:44 AM EDT [facility] 56 RDW 20.7 11.5 - 15.5 % 02/06/2025 8:44 AM EDT [facility] 56 PLT 325 140 - 400 K/uL 02/06/2025 8:44 AM EDT [facility] 56 MPV 9.6 6.6 - 11.1 fL 02/06/2025 8:44 AM EDT [facility] 5602 Blood Venous blood specimen / Unknown Central Line / Unknown 02/06/2025 7:52 AM EDT 02/06/2025 8:20 AM EDT us Logan Plummer MD LAB BLOOD ORDERABLES Final Res ult [facility] 56- [address] [place], [place] [address] documented in this encounter Visit Diagnoses Diagnosis Encounter for adjustment and management of vascular access device- Primary 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) Diarrhea, unspecified type Hypokalemia Hypopotassemia Dehydration documented in this encounter Administered Medications Inactive Administered Medications - up to 3 most recent administrations Medication Order MAR Action Action Date Dose Rate Site NSS infusion FOR HYDRATION Intravenous, at 500 mL/hr Administer over 2 Hours, ONCE, 1 dose, On Tue02/06/25 at 1100Indications: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),Hypokalemia,Dehydrat ion,Diarrhea, unspecified type Start Infusion 02/06/2025 9:28 AM EDT 1,000 mL 500 mL/hr potassium chloride 20 mEq in 50 mL ivpb LOCKED DOSE 20 mEq, Central IV, ONCE, 1 dose, On Tue02/06/25 at 1000, Administer over 60 Minutes, Standard infusion duration is 60 minutes.Indications:Diffus e 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),Hypokalemia,Dehydrat ion,Diarrhea, unspecified type Start Infusion 02/06/2025 10:28 AM EDT 20 mEq 50 mL/hr sodium chloride 0.9 % flush/inj 20 mL 20 mL, IV Push, PRN IV Flush and Lock, Starting on Tue02/06/25 at 0819, Until Tue02/06/25 at 1926, Do not flush if lock, PICC, or [...] and management of vascular access device Given 02/06/2025 8:08 AM EDT 20 mL sodium chloride 0.9 % flush/inj 20 mL 20 mL, IV Push, PRN IV Flush and Lock, Starting on Tue02/06/25 at 0945, Until Tue02/06/25 at 1926, Do not flush if lock, PICC, or central line not in place; IV infusing or unable to flush. For midlines and central lines. For IV Flush and Lock, IVAD is flushed with a total of 20 mL Normal Saline, 10 mL of Normal Saline Flush with 10 mL of Normal Saline acting as IV LOCK.Indications: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),Hypokalemia,Dehydrat ion,Diarrhea, unspecified type Given 02/06/2025 11:38 AM EDT 20 mL documented in this encounter Care Teams Aquaculturist Relationship Specialty Start Date End Date Stephany Gilbert CRNP [address] [place] [address] [place] [address] PCP - General Nurse Practitioner 02/02/23 documented as of this encounter
--- OUTSIDE RECORDS SUMMARY | 2025-02-26 17:06 | External Medical Summary ---
Author Name Unknown Address Unknown Organization K09[facility] [place] [address] Laboratory Report Ordering Provider Test Date Status SANG FLORESEL 02/26/2025 07:55:07 Final Observation Date Value Abnormality Reference (Units ) Status Magnesium 02/26/2025 07:55:07 1.6 1.5-2.6 (m g/dL) Final Performing Location [facility] [place] [address]
--- OUTSIDE RECORDS SUMMARY | 2025-02-26 17:06 | External Medical Summary | Summary of Care ---
Author Name Unknown Organization [facility] [address] [facility] [address] Phone [phone] Care Team Providers Care Screen Vent Binder Name Role Phone Stephany Gilbert Primary Care Provider Reason for Visit * Reason Comments Chemotherapy Day 1, cycle 3 Ritux imab, cytoxan, brentuximab * Episode Based Medications (Routine) - Authorized Specialty Diagnoses / Procedures Referred By Vicky orr Referred To Contact Diagnoses Encounter for antineoplastic chemotherapy 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) Prevention of chemotherapy-induced neutropenia Procedures [place] INJECTION, RITUXIMAB-PVVR, BIOSIMILAR, (RUXIENCE), 10 MG [place] INJ CYCLOPHOSPHAMD AUROMEDIC [place] BRENTUXIMAB VEDOTIN INJ [place] INJECTION, Logan Person MD [address] [facility] [address] [place], [place] [address] Phone: tel: fax: Hematology/Oncology Treatment, [address] [place] [address] Phone: tel: fax: Referral ID Status Reason Start Date Expiration Date V isits Requested Visits Authorized [id number] Authorized 11/29/2024 11/13/[phone] Encounter Details Date Type Department Care Team (Latest Contact Info) Description 01/29/2025 8:30 AM EDT Hem/Onc Treatment Hematology/Oncolog y Treatment, [address] [place] [address] Kaykay, Chair 7 Hem Onc Scenery [address] [place] [address] Encounter for antineoplastic chemotherapy*; Diffuse large B-cell [...] 8:00 AM EDT Nurse Only Hematology/Oncology Treatment, [place] [address] [place] [address] Kaykay, Chair 5 Hem Onc Scenery [address] [place] [address] 02/26/2025 9:00 AM EDT Nurse Only Hematology/Oncology Scenery [place] Jai [place]rack[place] [address] [place] [phone] Kaykay Nurse Hem Onc Scenery [address] [place] [address] 03/05/2025 8:00 AM EDT Nurse Only Hematology/Oncology Treatment, [place] [address] [facility], [place] [phone] Park, Chair 9 Hem Onc Scenery [address] [place], [place] [address] 03/05/2025 9:00 AM EDT Nurse Only Hematology/Oncology Scenery Kaykay [place] [address] [place], [place] [address] Park, Nurse Hem Onc Scenery [address] [place], [place] [address] 03/12/2025 12:00 PM EDT Nurse Only Hematology/Oncology Treatment [place] [address] [facility], [place] [phone] Kaykay, Chair 4 Hem Onc Scenery [address] [place], [place] [address] 03/12/2025 12:30 PM EDT Office Visit [facility] [place] [address] [place], [place] [phone] Logan Plummer MD [address] [place], [place] [address] 03/12/2025 1:00 PM EDT Hem/Onc Treatment Hematology/Oncology Treatment, [address], [place] [phone] Kaykay, Chair 4 Hem Onc Scenery [address] [place] [address] Scheduled Procedures Name Priority Associated Diagnoses Date/Ti [...] D LEVEL ONCE IN A LIFETIME-USE SMARTSET# 96668 Completed 10/25/2008 Pneumococcal Vaccine: 50+ Years Completed [...] this encounter Medical Devices Implanted Type Area Independent Film Maker Device Identifier Shelf Expiration Date Model / Serial / Lot Power Port 8fr Sngl Lumen Plas - [id number] Implanted:Qty : 1 on 12/05/2024 by Taco Sanchez MD at OR [facility] Left: Chest CR BARD : PERIPHERAL VASCULAR [id number] 07/14/2025 [id number] / / [id number] documented as of this encounter Visit Diagnoses [...] mL documented in this encounter Care Teams Screen Vent Binder Relationship Specialty Start Date End Date Stephany Gilbert CRNP [address] [place] [address] [place] [address] PCP - General Nurse Practitioner 02/02/23 documented as of this encounter
--- OUTSIDE RECORDS SUMMARY | 2025-02-26 17:07 | External Medical Summary ---
Author Name Unknown Address Unknown Organization K09[facility] 56-02 - [address] [place] [address] Laboratory Report Ordering Provider Test Date Status ERIN FLORES 02/19/2025 08:23:21 Final Observation Date Value Abnormality Reference (Units ) Status SYNC LEUKOCYTES IN BLOOD BY AUTOMATED COUNT 02/19/2025 08:23:21 13.88 Above high normal 4.00-10.80 (K/uL) Final Neutrophils/100 leukocytes in Blood by Manual count 02/19/2025 08:23:21 73.0 40.0-75.0 (%) Final Lymphocytes/100 leukocytes in Blood by Manual count 02/19/2025 08:23:21 5.0 Below low normal 18.0-42.0 (%) Final Monocytes/100 leukocytes in Blood by Manual count 02/19/2025 08:23:21 15.0 Above high normal 1.0-11.0 (%) Final Eosinophils/100 leukocytes in Blood by Manual count 02/19/2025 08:23:21 1.0 0.0-6.0 (%) Final Basophils/100 leukocytes in Blood by Manual count 02/19/2025 08:23:21 2.0 0.0-2.0 (%) Final Metamyelocytes/100 leukocytes in Blood by Manual count 02/19/2025 08:23:21 3.0 Above high normal <=0.0 (%) Final Myelocytes/100 leukocytes in Blood by Manual count 02/19/2025 08:23:21 1.0 Above high normal <=0.0 (%) Final Neutrophils [#/volume] in Blood by Manual count 02/19/2025 08:23:21 10.13 Above high normal 1.80-7.70 (K/uL) Final Lymphocytes [#/volume] in Blood by Manual count 02/19/2025 08:23:21 0.69 Below low normal 1.00-4.80 (K/uL) Final Monocytes [#/volume] in Blood by Manual count 02/19/2025 08:23:21 2.08 Above high normal 0.00-1.10 (K/uL) Final Eosinophils [#/volume] in Blood by Manual count 02/19/2025 08:23:21 0.14 0.00-0.70 (K/uL) Final Basophils [#/volume] in Blood by Manual count 02/19/2025 08:23:21 0.28 Above high normal 0.00-0.20 (K/uL) Final Metamyelocytes [#/volume] in Blood by Manual count 02/19/2025 08:23:21 0.42 Above high normal <=0.00 (K/uL) Final Myelocytes [#/volume] in Blood by Manual count 02/19/2025 08:23:21 0.14 Above high normal <=0.00 (K/uL) Final Nucleated erythrocytes/100 leukocytes [Ratio] in Blood by Automated count 02/19/2025 08:23:21 Final Performing Location [facility] [address] [place] [address]
--- OUTSIDE RECORDS SUMMARY | 2025-02-26 17:07 | External Medical Summary | Summary of Care ---
Author Name Unknown Organization [facility] Address [address] [facility] [address] Phone [phone] Care Team Providers Care Fruit Room Hand Name Role Phone Stephany Gilbert Primary Care Provider Reason for Visit * Reason Comments Chemotherapy Day 1, cycle 3 Ritux imab, cytoxan, brentuximab * Episode Based Medications (Routine) - Authorized Specialty Diagnoses / Procedures Referred By Vicky orr Referred To Contact Diagnoses Encounter for antineoplastic chemotherapy 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) Prevention of chemotherapy-induced neutropenia Procedures [place] INJECTION, RITUXIMAB-PVVR, BIOSIMILAR, (RUXIENCE), 10 MG [place] INJ CYCLOPHOSPHAMD AUROMEDIC [place] BRENTUXIMAB VEDOTIN INJ [place] INJECTION, Logan Person MD [address] [facility] [address] [place], [place] [address] Phone: tel: fax: Hematology/Oncology Treatment, [address] [place] [address] Phone: tel: fax: Referral ID Status Reason Start Date Expiration Date V isits Requested Visits Authorized [id number] Authorized 11/29/2024 11/13/2099 999 99 Encounter Details Date Type Department Care Team (Latest Contact Info) Description 01/29/2025 8:30 AM EDT Hem/Onc Treatment Hematology/Oncolog y Treatment, [address] [place] [address] Kaykay, Chair 7 Hem Onc Scenery [address] [place] [address] [address] Encounter for antineoplastic chemotherapy*; Diffuse large B-cell [...] 8:00 AM EDT Nurse Only Hematology/Oncology Treatment, [place] [address] [place] [phone] Kaykay, Chair 5 Hem Onc Scenery [address] [place] [address] 02/26/2025 9:00 AM EDT Nurse Only Hematology/Oncology Scenery [place] [address] [place] [phone] Kaykay Nurse Hem Onc Scenery [address] [place] [address] 03/05/2025 8:00 AM EDT Nurse Only Hematology/Oncology Treatment, [place] [address] [facility] [address] [facility], [place] [phone] Park, Chair 9 Hem Onc Scenery [address] [place], [place] [address] 03/05/2025 9:00 AM EDT Nurse Only Hematology/Oncology Scenery Kaykay [place] [address] [place], [place] [address] [place], Nurse Hem Onc Scenery [address] [place], [place] [address] 03/12/2025 12:00 PM EDT Nurse Only Hematology/Oncology Treatment [place] [address] [facility], [place] [phone] Kaykay, Chair 4 Hem Onc Scenery [address] [place], [place] [address] 03/12/2025 12:30 PM EDT Office Visit Hematology/Oncology [facility] [place] [address] [place], [place] [phone] Logan Plummer MD [address] [place], [place] [address] 03/12/2025 1:00 PM EDT Hem/Onc Treatment Hematology/Oncology Treatment, [address], [place] [phone] Kaykay, Chair 4 Hem Onc Scenery [address] [place] [address] Scheduled Procedures Name Priority Associated Diagnoses Date/Ti [...] D LEVEL ONCE IN A LIFETIME-USE SMARTSET# 17999 Completed 10/25/2008 Pneumococcal Vaccine: 50+ Years Completed [...] this encounter Medical Devices Implanted Type Area Sales Assistant Device Identifier Shelf Expiration Date Model / Serial / Lot Power Port 8fr Sngl Lumen Plas - [id number] Implanted:Qty : 1 on 12/05/2024 by Taco Sanchez MD at OR [facility] Left: Chest CR BARD : PERIPHERAL VASCULAR [id number] 07/14/2025 [id number] / / [id number] documented as of this encounter Visit Diagnoses [...] documented in this encounter Care Teams Fruit Room Hand Relationship Specialty Start Date End Date Stephany Gilbert CRNP [address] [place] [address] [place] [address] PCP - General Nurse Practitioner 02/02/23 documented as of this encounter
--- OUTSIDE RECORDS SUMMARY | 2025-02-26 17:07 | External Medical Summary ---
Author Name Unknown Address Unknown Organization K09:[facility] [address] [place] [address] Laboratory Report Ordering Provider Test Date Status ERIN FLORES 02/19/2025 08:23:21 Correction Observation Date Value Abnormality Reference (Units ) Status BUN 02/19/2025 08:23:21 13 6-20 (mg/dL) Final Creatinine 02/19/2025 08:23:21 0.7 0.5-1.0 (mg/dL) Final Glomerular filtration rate/1.73 sq M.predicted [Volume Rate/Area] in Serum, Plasma or Blood by Creatinine-based formula (CKD-EPI) 02/19/2025 08:23:21 >90 >=60 (mL/min) Final eGFR is calculated based on the CKD-EPI 2020 equation. Sodium 02/19/2025 08:23:21 134 Below low normal 135 -146 (mmol/L) Final Potassium 02/19/2025 08:23:21 3.7 3.5-5.1 (m mol/L) Final Cl 02/19/2025 08:23:21 100 98-107 (mm ol/L) Final CO2 02/19/2025 08:23:21 24 22-32 (mmo l/L) Final Anion gap 02/19/2025 08:23:21 10 7-15 (mmol /L) Final Glucose 02/19/2025 08:23:21 109 70-120 (mg /dL) Final Albumin 02/19/2025 08:23:21 3.1 Below low normal 3.8 -5.0 (g/dL) Final AST (Aspartate aminotransferase) 02/19/2025 08:23:21 24 10-35 (U/L) Fin al Alk Phos 02/19/2025 08:23:21 96 35-130 (U/ L) Final Bilirubin, Total 02/19/2025 08:23:21 0.3 <=1 .2 (mg/dL) Final Calcium 02/19/2025 08:23:21 8.8 8.4-10.2 ( mg/dL) Final Protein 02/19/2025 08:23:21 6.2 6.0-8.3 (g /dL) Final ALT (Alanine aminotransferase) 02/19/2025 08:23:21 10 10-35 (U/L) Hair magdaleno Performing Location [facility] [address] [place] [address]
--- OUTSIDE RECORDS SUMMARY | 2025-02-26 17:07 | External Medical Summary | Summary of Care ---
Author Name Unknown Organization [facility] [address] [facility] [address] Phone [phone] Care Team Providers Care Alliances Consultant Name Role Phone Stephany Gilbert Primary Care Provider Reason for Visit * Reason Comments Chemotherapy Day 1, cycle 3 Ritux imab, cytoxan, brentuximab * Episode Based Medications (Routine) - Authorized Specialty Diagnoses / Procedures Referred By Vicky orr Referred To Contact Diagnoses Encounter for antineoplastic chemotherapy 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) Prevention of chemotherapy-induced neutropenia Procedures MT INJECTION, RITUXIMAB-PVVR, BIOSIMILAR, (RUXIENCE), 10 MG MT INJ CYCLOPHOSPHAMD [facility]IC MT BRENTUXIMAB VEDOTIN INJ MT INJECTION, Logan Person MD [address] [facility] [address] [place], [place] [address] Phone: tel: fax: Hematology/Oncology Treatment, [address] [place] [address] Phone: tel: fax: Referral ID Status Reason Start Date Expiration Date V isits Requested Visits Authorized [id number] Authorized 11/29/2024 11/13/[phone] Encounter Details Date Type Department Care Team (Latest Contact Info) Description 01/29/2025 8:30 AM EDT Hem/Onc Treatment Hematology/Oncolog y Treatment, [address] [place] [address] Kaykay, Chair 7 Hem Onc Scenery [address] [place] [id number] Encounter for antineoplastic chemotherapy*; Diffuse large B-cell [...] 8:00 AM EDT Nurse Only Hematology/Oncology Treatment, [place] [address] [place] [phone] Kaykay, Chair 5 Hem Onc Scenery [address] [place] [id number] 02/26/2025 9:00 AM EDT Nurse Only Hematology/Oncology Scenery [place] Jai Mccracken [address] [place] [phone] Kaykay Nurse Hem Onc Scenery [address] [place] [id number] 03/05/2025 8:00 AM EDT Nurse Only Hematology/Oncology Treatment, [place] [address] [facility], [place] [phone] Park, Chair 9 Hem Onc Scenery [address] [place], [place] [address] 03/05/2025 9:00 AM EDT Nurse Only Hematology/Oncology Scenery Kaykay [place] [address] [place], [place] [address] Park, Nurse Hem Onc Scenery [address] [place], [place] [address] 03/12/2025 12:00 PM EDT Nurse Only Hematology/Oncology Treatment [place] [address] [facility], [place] [phone] Kaykay, Chair 4 Hem Onc Scenery [address] [place], [place] [address] 03/12/2025 12:30 PM EDT Office Visit Hematology[facility]Oncology [facility] Rebuck [place] [address] [place], [place] [phone] Logan Plummer MD [address] [place], [place] [address] 03/12/2025 1:00 PM EDT Hem/Onc Treatment Hematology/Oncology Treatment, [address], [place] [phone] Kaykay, Chair 4 Hem Onc Scenery [address] [place] [address] Scheduled Procedures Name Priority Associated Diagnoses Date/Ti [...] D LEVEL ONCE IN A LIFETIME-USE SMARTSET# [id number] Completed 10/25/2008 Pneumococcal Vaccine: 50+ Years Completed [...] this encounter Medical Devices Implanted Type Area Historiography Teacher Device Identifier Shelf Expiration Date Model / Serial / Lot Power Port 8fr Sngl Lumen Plas - [id number] Implanted:Qty : 1 on 12/05/2024 by Taco Sanchez MD at OR [facility] Left: Chest CR BARD : PERIPHERAL VASCULAR [id number] 07/14/2025 [id number] / / [id number] documented as of this encounter Visit Diagnoses [...] mL documented in this encounter Care Teams Alliances Consultant Relationship Specialty Start Date End Date Stephany Gilbert CRNP [address] [place] [address] [place] [address] PCP - General Nurse Practitioner 02/02/23 documented as of this encounter
--- OUTSIDE RECORDS SUMMARY | 2025-02-26 17:07 | External Medical Summary | Summary of Care ---
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) Prevention of chemotherapy-induced neutropenia Procedures MA INJECTION, RITUXIMAB-PVVR, BIOSIMILAR, (RUXIENCE), 10 MG MA INJ CYCLOPHOSPHAMD AUROMEDIC MA BRENTUXIMAB VEDOTIN INJ MA INJECTION, Logan Person MD [address] [place] [address] Phone: tel: fax: Hematology/Oncology Treatment, [address] [place] [address] Phone: tel: fax: Referral ID Status Reason Start Date Expiration Date V isits Requested Visits Authorized [id number] Authorized 11/29/2024 11/13/[phone] Encounter Details Date Type Department Care Team (Latest Contact Info) Description 02/19/2025 8:45 AM EDT Hem/Onc Treatment Hematology/Oncolog [address], [address] [address] Kaykay, Chair 3 Hem On[address] [place] [address] Prevention of chemotherapy-induced neutropenia*; Encounter for antineoplastic chemotherapy; 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); Diarrhea, unspecified type; Encounter for adjustment and management of vascular access device Allergies Active Allergy Reactions Criticality Noted Date Comments Nickel Rash 03/11/2015 documented as of this encounter (statuses as of 02/20/2025) Medications CALTRATE 600 + D 600-125 MG-IU [...] as of this encounter (statuses as of 02/20/2025) Active Problems Problem Noted Date Diagnosed Date [...] as of this encounter (statuses as of 02/20/2025) Resolved Problems Problem Noted Date Diagnosed Date Resolved Date Other iron deficiency anemia 12/19/2008 Overview (08/15/2017): Resolved per Duplicate Protocol #2. ICD-10 update of inactive term documented as of this encounter (statuses as of 02/20/2025) Social History Tobacco Use Types Packs/Day Years [...] Sign Reading Time Taken Comments Blood Pressure 112/65 02/19/2025 8:30 AM EDT Pulse 101 02/19/2025 8:30 AM EDT Temperature 37 °C (98.6 °F) 02/19/2025 8:30 AM EDT Respiratory Rate 18 02/19/2025 8:30 AM EDT Oxygen Saturation 92% 02/19/2025 8:30 AM EDT Inhaled Oxygen Concentration - - Weight 58.2 kg (128 lb 6.4 oz) 02/19/2025 8:30 A M EDT Height - - Body Mass Index 21.37 12/05/2024 1:31 PM EST documented in this encounter Nursing Notes * Eusebia Swain, CLAUDIO - 02/19/2025 3:38 PM EDT Infusion complete. Patient tolerated well. [...] left facility in stable condition. * Eusebia Swain RN - 02/19/2025 9:59 AM EDT Chair 7, patient here for treatment. No complaints at this time. VAD accessed without difficulty, + blood return, waste tube drawn, labs drawn, flushed with 20 ml NSS and dressing applied. Chemotherapy/Immunotherapy agents: Brentuximab, CYTOXAN, and RITUXIMAB Consent for chemotherapy drug treatment complete, dated, and signed? yes, date - 11/29/24 Treatment lab parameters met? Yes Has treatment weight changed > than 10%? No Treatment preauthorized? Yes VITALS Filed Vitals: 02/19/25 0830 BP: 112/65 Pulse: 101 Resp: 18 Temp: 37 °C (98.6 °F) TempSrc: Tympanic SpO2: 92% Weight: 58.2 kg (128 lb 6.4 oz) BP Readings from Last 2 Encounters: 02/19/25 112/65 02/14/25 97/62 Pulse Readings from Last 2 Encounters: 02/19/25 101 02/14/25 98 Resp Readings from Last 2 Encounters: 02/19/25 18 01/08/25 16 SpO2 Readings from Last 2 Encounters: 02/19/25 92% 02/14/25 89% Temp Readings from Last 2 Encounters: 02/19/25 37 °C (98.6 °F) (Tympanic) 02/14/25 37.9 °C (100.3 °F) (Tympanic) Urine protein: N/A Patient education completed for treatment? Yes Blood transfusion consent signed and complete? NA Return appointment scheduled? Yes Patient had provider visit today? No - If no provider visit must complete Pretreatment Assessment Functional Status: Functional status at today's visit: [...] potential rose while using the heat function. PRE-TREATMENT ASSESSMENT: NEURO: denies symptoms CV/RESP: denies symptoms GI/: denies symptoms OTHER: denies any additional symptoms PAIN: 0 Safety and Risk for Injury Patient will remain free from injury. Ensure appropriate safety devices are available. Provide and maintain safe environment. documented in this encounter Plan of Treatment Upcoming Encounters Date Type Department Care Team (Late st Contact Info) Description 02/20/2025 1:30 PM EDT Immunization/Injecti on Hematology/[address], [address] [phone] Kaykay, Chair 6 Hem Onc Scenery [address] [place] [address] [place] [address] 02/26/2025 8:00 AM EDT Nurse Only Hematology/Oncology Treatment, [address] [place] [phone] Kaykay, Chair 5 Hem Onc Scenery [address] [place] [address] 02/26/2025 9:00 AM EDT Nurse Only Hematology/Oncology Scenery Kaykay [address] [place] [address] Kaykay, Nurse Hem Onc Scenery [address] [facility] [place] [address] 03/05/2025 8:00 AM EDT Nurse Only Hematology/Oncology Treatment, [address] [place] [address] Kaykay, Chair 9 Hem Onc Scenery [address] [facility] [place] [address] 03/05/2025 9:00 AM EDT Nurse Only Hematology/Oncology [facility] [place] [address] [place], [place] [phone] Park, Nurse Hem Onc [facility] [address] [place] [address] 03/12/2025 12:00 PM EDT Nurse Only Hematology/Oncology Treatment, [address], [place] [phone] Kaykay, Chair 4 Hem Onc [facility] [address] [facility] [place] [address] 03/12/2025 12:30 PM EDT Office Visit Hematology/Oncology [facility] [place] [address] [facility] [place] [phone] Logan Plummer MD [address] [facility] [place] [address] 03/12/2025 1:00 PM EDT Hem/Onc Treatment Hematology/Oncology Treatment [address], [place] [phone] Kaykay, Chair 4 Hem Onc [facility] [address] [facility] [place], [place] [address] Scheduled Procedures Name Priority Associated Diagnoses Date/Ti [...] D LEVEL ONCE IN A LIFETIME-USE SMARTSET# 08316 Completed 10/25/2008 Pneumococcal Vaccine: 50+ Years Completed [...] this encounter Medical Devices Implanted Type Area Shingle Catcher Device Identifier Shelf Expiration Date Model / Serial / Lot Power Port 8fr Sngl Lumen Plas - [id number] Implanted:Qty : 1 on 12/05/2024 by Taco Sanchez MD at OR [facility] Left: Chest CR BARD : PERIPHERAL VASCULAR [id number] 07/14/2025 [id number] / / [id number] documented as of this encounter Procedures Procedure Name Priority Date/Time Associated Diagnosis Comments DIFFERENTIAL, AUTOMATED STAT 02/19/2025 8:23 AM EDT Diarrhea, unspecified type 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) COMPREHENSIVE METABOLIC PANEL STAT 02/19/2025 8:23 AM EDT Diarrhea, unspecified type 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) CBC STAT 02/19/2025 8:23 AM EDT Diarrhea, unspecified type 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) LD STAT 02/19/2025 8:23 AM EDT Encounter for antineoplastic chemotherapy 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) CBC STAT 02/19/2025 8:23 AM EDT Diarrhea, unspecified type 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) DIFFERENTIAL, TECHNOLOGIST REVIEW Routine 02/19/2025 8:23 AM EDT Diarrhea, unspecified type 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) URIC ACID STAT 02/19/2025 8:23 AM EDT Encounter for antineoplastic chemotherapy 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) MAGNESIUM STAT 02/19/2025 8:23 AM EDT Diarrhea, unspecified type 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) documented in this encounter Results * (ABNORMAL) DIFFERENTIAL, TECHNOLOGIST REVIEW (02/19/2025 8:23 AM EDT) WBC 13.88(H) 4.00 - 10.80 K/uL 02/19/2025 9:13 AM EDT [facility]02 Neutrophils % 73.0 40.0 - 75.0 % 02/19/2025 9:13 AM EDT [facility] 56[facility]02 Lymphocytes % 5.0(L) 18.0 - 42.0 % 02/19/2025 9:13 AM EDT [facility] 56-02 Monocytes % 15.0(H) 1.0 - 11.0 % 02/19/2025 9:13 AM EDT [facility] 56-02 Eosinophils % 1.0 0.0 - 6.0 % 02/19/2025 9:13 AM EDT [facility] 56-02 Basophils % 2.0 0.0 - 2.0 % 02/19/2025 9:13 AM EDT [facility] 56-02 Metamyelocytes % 3.0(H) <=0.0 % 02/20/20 9:13 AM EDT [facility] 56-02 Myelocytes % 1.0(H) <=0.0 % 02/19/2025 9:13 AM EDT [facility] 56-02 Absolute Neutrophils 10.13(H) 1.80 - 7.70 K/uL 02/19/2025 9:13 AM EDT [facility] 56-02 Absolute Lymphocytes 0.69(L) 1.00 - 4.80 K/uL 02/19/2025 9:13 AM EDT [facility] 56-02 Absolute Monocytes 2.08(H) 0.00 - 1.10 K/uL 02/19/2025 9:13 AM EDT [facility] 56-02 Absolute Eosinophils 0.14 0.00 - 0.70 K/uL 02/19/2025 9:13 AM EDT [facility] 56- Absolute Basophils 0.28(H) 0.00 - 0.20 K/uL 02/19/2025 9:13 AM EDT [facility] 56-02 Absolute Metamyelocytes 0.42(H) <=0.00 K/uL 02/19/2025 9:13 AM EDT [facility] 56 Absolute Myelocytes 0.14(H) <=0.00 K/uL 02/19/2025 9:13 AM EDT [facility] 56-02 nRBCs 02/19/2025 9:13 AM EDT [facility] 56- Blood Blood sample taken from central line / Unknown Central Line / Unknown 02/19/2025 8:23 AM EDT 02/19/2025 8:46 AM EDT Logan Plummer MD LAB BLOOD ORDERABLES Final Res ult Performing Organization Address City/[facility]/ZIP Co de Phone Number [facility] 56 [address] [place] [address] * DIFFERENTIAL, AUTOMATED (02/19/2025 8:23 AM EDT) Blood Blood sample taken from central line / Unknown Central Line / Unknown 02/19/2025 8:23 AM EDT 02/19/2025 8:46 AM EDT Logan Plummer MD LAB BLOOD ORDERABLES Final Res ult [facility] 56 [address] [place] [address] * (ABNORMAL) CBC (02/19/2025 8:23 AM EDT) Pathologist [facility] WBC 13.88(H) 4.00 - 10.80 K/uL 02/19/2025 9:13 AM EDT [facility] 56 RBC 3.15 3.85 - 5.15 M/uL 02/19/2025 9:13 AM EDT [address] HGB 9.1(L) 12.0 - 15.3 g/dL 02/19/2025 9:13 AM EDT [facility] 56 HCT 29.9(L) 36.0 - 45.2 % 02/19/2025 9:13 AM EDT [address] MCV 94.9 81.5 - 97.5 fL 02/19/2025 9:13 AM EDT [address] MCH 28.9 27.0 - 34.0 pg 02/19/2025 9:13 AM EDT [address] MCHC 30.4 32.0 - 36.0 g/dL 02/19/2025 9:13 AM EDT [address] RDW 19.9 11.5 - 15.5 % 02/19/2025 9:13 AM EDT [facility] 56 PLT 361 140 - 400 K/uL 02/19/2025 9:13 AM EDT [facility] 56 MPV 9.1 6.6 - 11.1 fL 02/19/2025 9:13 AM EDT [facility] 56 Blood Blood sample taken from central line / Unknown Central Line / Unknown 02/19/2025 8:23 AM EDT 02/19/2025 8:46 AM EDT us Logan Plummer MD LAB BLOOD ORDERABLES Final Res ult [facility] 56- [address] [place] [address] * (ABNORMAL) COMPREHENSIVE METABOLIC PANEL (02/19/2025 8:23 AM EDT) [facility] BUN 13 6 - 20 mg/dL 02/19/2025 12:16 PM [place] [address] CREATININE 0.7 0.5 - 1.0 mg/dL 02/19/2025 12:16 PM [place] [address] EGFR >90 >=60 mL/min 02/19/2025 12:16 PM [place] [address] Comment:eGFR is calculated b ased on the CKD-EPI 2020 equation. SODIUM 134(L) 135 - 146 mmol/L 02/19/2025 12:16 PM [place] [address] POTASSIUM 3.7 3.5 - 5.1 mmol/L 02/19/2025 12:16 PM [place] [address] CHLORIDE 100 98 - 107 mmol/L 02/19/2025 12:16 PM [place] [address] CO2 24 22 - 32 mmol/L 02/19/2025 12:16 PM [place] [address] ANION GAP 10 7 - 15 mmol/L 02/19/2025 12:16 PM [place] [address] GLUCOSE 109 70 - 120 mg/dL 02/19/2025 12:16 PM [place] [address] Albumin 3.1(L) 3.8 - 5.0 g/dL 02/19/2025 12:[address] AST 24 10 - 35 U/L 02/19/2025 12:16 PM [place] [address] Alkaline Phosphatase 96 35 - 130 U/L 02/19/2025 12:[address] Bilirubin, Total 0.3 <=1.2 mg/dL 02/19/2025 12:16 PM [place] [address] CALCIUM 8.8 8.4 - 10.2 mg/dL 02/19/2025 12:16 PM [place] [address] Protein 6.2 6.0 - 8.3 g/dL 02/19/2025 12:16 PM [facility] ALT 10 10 - 35 U/L 02/19/2025 12:16 PM [place] [address] Blood Blood sample taken from central line / Unknown Central Line / Unknown 02/19/2025 8:23 AM EDT 02/19/2025 8:37 AM EDT Logan Plummer MD LAB BLOOD ORDERABLES Edited Re sult - Final Performing Organization Address [facility]/ZIP Co de Phone Number [facility] [phone] [place] [address] * MAGNESIUM (02/19/2025 8:23 AM EDT) Magnesium 1.9 1.5 - 2.6 mg/dL 02/19/2025 12:16 PM EDT [facility] [place] [address] Blood Blood sample taken from central line / Unknown Central Line / Unknown 02/19/2025 8:23 AM EDT 02/19/2025 8:37 AM EDT us Logan Plummer MD LAB BLOOD ORDERABLES Edited Re sult - Final Performing Organization Address [facility] Co de Phone Number [facility] 56- [address] [place] [address] * URIC ACID (02/19/2025 8:23 AM EDT) Uric Acid 4.3 2.4 - 5.7 mg/dL 02/19/2025 5:20 PM EDT LABORATORY [facility] Blood Blood sample taken from central line / Unknown Central Line / Unknown 02/19/2025 8:23 AM EDT 02/19/2025 8:37 AM EDT us Logan Plummer MD LAB BLOOD ORDERABLES Final Res ult LAB[facility]ATORY [facility] [address] [facility] [address] * (ABNORMAL) LD (02/19/2025 8:23 AM EDT) LD 254(H) <=250 U/L 02/19/2025 5:20 PM EDT LAB[facility]ATORY [facility] Blood Blood sample taken from central line / Unknown Central Line / Unknown 02/19/2025 8:23 AM EDT 02/19/2025 8:37 AM EDT us Logan Plummer MD LAB BLOOD ORDERABLES [place] [address] documented in this encounter Visit Diagnoses Diagnosis Prevention of chemotherapy-induced neutropenia- Primary Encounter for antineoplastic chemotherapy 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) Diarrhea, unspecified type Encounter for adjustment and management of vascular access device documented in this encounter Administered Medications Inactive Administered Medications - up to 3 most recent administrations Medication Order MAR Action Action Date Dose Rate Site Acetaminophen (Tylenol) tab 650 mg 650 mg, Oral, ONCE, On Tue02/19/25 at 1015, For 1 dose, Maximum of 4 grams (4000 mg) per day.Indications:Encounter for antineoplastic chemotherapy,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),Prevention of chemotherapy-induced neutropenia Given 02/19/2025 9:56 AM EDT 650 mg BRENtuximab vedotin (Adcetris) 114.3 mg in NSS 100 mL infusion 114.3 mg (1.8 mg/kg 63.5 kg Treatment plan Recorded weight), IV Piggyback, ONCE, 1 dose, On Tue02/19/25 at 1145, Administer over 30 Minutes, Max Dose 180mgIndications:Encounter for antineoplastic chemotherapy,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),Prevention of chemotherapy-induced neutropenia Start Infusion 02/19/2025 12:29 PM EDT 114.3 mg 255.72 mL/hr cycloPHOSphamide (Cytoxan) 1,280 mg in NSS 500 mL infusion 1,280 mg (rounded from 1,282.5 mg = 750 mg/m2 1.71 m2 Treatment Plan BSA from Recorded weight), IV Piggyback, ONCE, On Tue02/19/25 at 1115, For 1 dose, Cyclophosphamide doses over 1g should be in 500 mL.May extend infusion to 1 hour if not tolerated.Indications:Enco unter for antineoplastic chemotherapy,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),Prevention of chemotherapy-induced neutropenia Start Infusion 02/19/2025 10:13 AM EDT 1,280 mg 1032.8 mL/hr diphenhydrAMINE (Benadryl) cap 50 mg 50 mg, Oral, ONCE, On Tue02/19/25 at 1015, For 1 doseIndications:Encounter for antineoplastic chemotherapy,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),Prevention of chemotherapy-induced neutropenia Given 02/19/2025 9:56 AM EDT 50 mg Famotidine (Pepcid) tab 20 mg 20 mg, Oral, ONCE, On Tue02/19/25 at 1015, For 1 doseIndications:Encounter for antineoplastic chemotherapy,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),Prevention of chemotherapy-induced neutropenia Given 02/19/2025 9:56 AM EDT 20 mg NSS infusion 500 mL, Intravenous, at 50 mL/hr, CONTINUOUS, Starting on Tue02/19/25 at 1115, Until Tue02/19/25 at 1943Indications:Encounter for antineoplastic chemotherapy,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),Prevention of chemotherapy-induced neutropenia Continue on Pump 02/19/2025 12:19 PM EDT 200 mL/hr Start Infusion 02/19/2025 9:43 AM EDT 500 mL 50 mL/hr ondansetron (Zofran) tab 8 mg 8 mg, Oral, ONCE, On Tue02/19/25 at 1015, For 1 doseIndications:Encounter for antineoplastic chemotherapy,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),Prevention of chemotherapy-induced neutropenia Given 02/19/2025 9:56 AM EDT 8 mg riTUXimab-pvvr (Ruxience) 600 mg in NSS 250 mL ivpb 600 mg (rounded from 641.25 mg = 375 mg/m2 1.71 m2 Treatment Plan BSA from Recorded weight), IV Piggyback, ONCE, 1 dose, On Tue02/19/25 at 1015, Administer at 100mL/hr for the first 30 min then at 200mL/hr for the remainder of the infusion. Administer over 90 minutesIndications:Encounter for antineoplastic chemotherapy,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),Prevention of chemotherapy-induced neutropenia Rate Change 02/19/2025 11:18 AM EDT 200 mL/hr Start Infusion 02/19/2025 10:48 AM EDT 600 mg 100 mL/h r sodium chloride 0.9 % flush/inj 10 mL 10 mL, IV Push, PRN line flush, Starting on Tue02/19/25 at 0940, Until Tue02/19/25 at 1943, Do not flush if lock, PICC, or central line not in place; IV infusing or unable to flush. For midlines and central lines.Indications: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),Encounter for adjustment and management of vascular access device Given 02/19/2025 8:30 AM EDT 10 mL sodium chloride 0.9 % flush/inj 20 mL 20 mL, IV Push, PRN IV Flush and Lock, Starting on Tue02/19/25 at 0939, Until Tue02/19/25 at 1943, Do not flush if lock, PICC, or [...] of neck (HCC),Prevention of chemotherapy-induced neutropenia Given 02/19/2025 1:06 PM EDT 20 mL sodium chloride 0.9 % flush/inj 20 mL 20 mL, IV Push, PRN IV Flush and Lock, Starting on Tue02/19/25 at 0940, Until Tue02/19/25 at 1943, Do not flush if lock, PICC, or [...] and management of vascular access device Given 02/19/2025 8:31 AM EDT 20 mL documented in this encounter Care Teams Donor Recruitment Manager Relationship Specialty Start Date End Date Stephany Gilbert CRNP [address] [facility] [place] [address] PCP - General Nurse Practitioner 02/02/23 documented as of this encounter
--- OUTSIDE RECORDS SUMMARY | 2025-02-26 17:07 | External Medical Summary | Summary of Care ---
Author Name Unknown Organization [facility] [address] [facility] [address] Phone [phone] Care Team Providers Care Quality Assurance Qa Lab Technician Name Role Phone Stephany Gilbert Primary Care Provider Reason for Visit * Reason Comments Chemotherapy Day 1, cycle 3 Ritux imab, cytoxan, brentuximab * Episode Based Medications (Routine) - Authorized Specialty Diagnoses / Procedures Referred By Vicky orr Referred To Contact Diagnoses Encounter for antineoplastic chemotherapy 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) Prevention of chemotherapy-induced neutropenia Procedures RI INJECTION, RITUXIMAB-PVVR, BIOSIMILAR, (RUXIENCE), 10 MG RI INJ CYCLOPHOSPHAMD AUROMEDIC RI BRENTUXIMAB VEDOTIN INJ RI INJECTION, Logan Person MD [address] [facility] [address] [place], [place] [address] Phone: tel: fax: Hematology/Oncology Treatment, [address] [place] [address] Phone: tel: fax: Referral ID Status Reason Start Date Expiration Date V isits Requested Visits Authorized [id number] Authorized 11/29/2024 11/13/[phone] Encounter Details Date Type Department Care Team (Latest Contact Info) Description 01/29/2025 8:30 AM EDT Hem/Onc Treatment Hematology/Oncolog y Treatment, [address] [place] [address] Kaykay, Chair 7 Hem Onc Scenery [address] [place] [address] Encounter for antineoplastic chemotherapy*; Diffuse large B-cell [...] 8:00 AM EDT Nurse Only Hematology/Oncology Treatment, [place] [address] [place] [phone] Kaykay, Chair 5 Hem Onc Scenery [address] [place] [address] 02/26/2025 9:00 AM EDT Nurse Only Hematology/Oncology Scenery State [place]ai M[place]racken [address] [place] [phone] Kaykay Nurse Hem Onc Scenery [address] [place] [address] 03/05/2025 8:00 AM EDT Nurse Only Hematology/Oncology Treatment, [place] [address] [facility], [place] [phone] [place], Chair 9 Hem Onc Scenery [address] [place], [place] [address] 03/05/2025 9:00 AM EDT Nurse Only Hematology/Oncology Scenery Kaykay [place] [address] [place], [place] [address] [place], Nurse Hem Onc Scenery [address] [place], [place] [address] 03/12/2025 12:00 PM EDT Nurse Only Hematology/Oncology Treatment [place] [address] [facility], [place] [phone] Kaykay, Chair 4 Hem Onc Scenery [address] [place], [place] [address] 03/12/2025 12:30 PM EDT Office Visit [facility]ematology[facility]Oncology [facility] [place] [address] [place], [place] [phone] Logan Plummer MD [address] [place], [place] [address] 03/12/2025 1:00 PM EDT Hem/Onc Treatment Hematology/Oncology Treatment, [address], [place] [phone] Kaykay, Chair 4 Hem Onc Scenery [address] [place] [address] Scheduled Procedures Name Priority Associated Diagnoses Date/Ti [...] D LEVEL ONCE IN A LIFETIME-USE SMARTSET# [id number] Completed 10/25/2008 Pneumococcal Vaccine: 50+ Years Completed [...] this encounter Medical Devices Implanted Type Area Stabilizer Operator Device Identifier Shelf Expiration Date Model / Serial / Lot Power Port 8fr Sngl Lumen Plas - [id number] Implanted:Qty : 1 on 12/05/2024 by Taco Sanchez MD at OR [facility] Left: Chest CR BARD : PERIPHERAL VASCULAR [id number] 07/14/2025 [id number] / / [id number] documented as of this encounter Visit Diagnoses [...] mL documented in this encounter Care Teams Quality Assurance Qa Lab Technician Relationship Specialty Start Date End Date Stephany Gilbert CRNP [address] [place] [address] [place] [address] PCP - General Nurse Practitioner 02/02/23 documented as of this encounter
--- OUTSIDE RECORDS SUMMARY | 2025-02-26 17:07 | External Medical Summary | Summary of Care ---
Author Name Unknown Organization [facility] [address] [facility] [address] Phone [phone] Care Team Providers Care Associate Software Developer Name Role Phone Stephany Gilbert Primary Care Provider Reason for Visit * Reason Comments Chemotherapy Day 1, cycle 3 Ritux imab, cytoxan, brentuximab * Episode Based Medications (Routine) - Authorized Specialty Diagnoses / Procedures Referred By Vicky orr Referred To Contact Diagnoses Encounter for antineoplastic chemotherapy 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) Prevention of chemotherapy-induced neutropenia Procedures [place] INJECTION, RITUXIMAB-PVVR, BIOSIMILAR, (RUXIENCE), 10 MG [place] INJ CYCLOPHOSPHAMD AUROMEDIC [place] BRENTUXIMAB VEDOTIN INJ [place] INJECTION, Logan Person MD [address] [facility] [address] [place], [place] [address] Phone: tel: fax: Hematology/Oncology Treatment, [address] [place] [address] Phone: tel: fax: Referral ID Status Reason Start Date Expiration Date V isits Requested Visits Authorized [id number] Authorized 11/29/2024 11/13/[phone] Encounter Details Date Type Department Care Team (Latest Contact Info) Description 01/29/2025 8:30 AM EDT Hem/Onc Treatment Hematology/Oncolog y Treatment, [address] [place] [address] Kaykay, Chair 7 Hem Onc Scenery [address] [place] [address] Encounter for antineoplastic chemotherapy*; Diffuse large B-cell [...] 8:00 AM EDT Nurse Only Hematology/Oncology Treatment, [place] [address] [place] [address] Kaykay, Chair 5 Hem Onc Scenery [address] [place] [address] 02/26/2025 9:00 AM EDT Nurse Only Hematology/Oncology Scenery [place] Jai Mccracken [address] [place] [phone] Kaykay Nurse Hem Onc Scenery [address] [place] [address] 03/05/2025 8:00 AM EDT Nurse Only Hematology/Oncology Treatment, [place] 200 [facility], [place] [phone] Park, Chair 9 Hem Onc Scenery [address] [place], [place] [address] 03/05/2025 9:00 AM EDT Nurse Only Hematology/Oncology Scenery Kaykay [place] [address] [place], [place] [address] Park, Nurse Hem Onc Scenery [address] [place], [place] [address] 03/12/2025 12:00 PM EDT Nurse Only Hematology/Oncology Treatment [place] 200 [facility], [place] [phone] Kaykay, Chair 4 Hem Onc Scenery [address] [place], [place] [address] 03/12/2025 12:30 PM EDT Office Visit Hematology/Oncology [facility] [place] [address] [place], [place] [phone] Logan Plummer MD [address] [place], [place] [address] 03/12/2025 1:00 PM EDT Hem/Onc Treatment Hematology/Oncology Treatment, [address], [place] [phone] Kaykay, Chair 4 Hem Onc Scenery [address] [place] [address] Scheduled Procedures Name Priority Associated Diagnoses Date/Ti [...] D LEVEL ONCE IN A LIFETIME-USE SMARTSET# 91947 Completed 10/25/2008 Pneumococcal Vaccine: 50+ Years Completed [...] this encounter Medical Devices Implanted Type Area Planer Off Bearer Device Identifier Shelf Expiration Date Model / Serial / Lot Power Port 8fr Sngl Lumen Plas - [id number] Implanted:Qty : 1 on 12/05/2024 by Taco Sanchez MD at OR [facility] Left: Chest CR BARD : PERIPHERAL VASCULAR [id number] 07/14/2025 [id number] / / [id number] documented as of this encounter Visit Diagnoses [...] mL documented in this encounter Care Teams Associate Software Developer Relationship Specialty Start Date End Date Stephany Gilbert CRNP [address] [place] [address] [place] [address] PCP - General Nurse Practitioner 02/02/23 documented as of this encounter
--- OUTSIDE RECORDS SUMMARY | 2025-02-26 17:07 | External Medical Summary ---
Author Name Unknown Address Unknown Organization [facility] [address] [place] [address] Laboratory Report Ordering Provider Test Date Status ERIN FLORES 02/19/2025 08:23:21 Final Observation Date Value Abnormality Reference (Units ) Status Uric Acid 02/19/2025 08:23:21 4.3 2.4-5.7 (m g/dL) Final Performing Location [facility] [address] [place] [address]
--- OUTSIDE RECORDS SUMMARY | 2025-02-26 17:07 | External Medical Summary | Summary of Care ---
Author Name Unknown Organization [facility] Address [address] [facility] [address] Phone [phone] Care Team Providers Care Account Resolution Specialist Name Role Phone Stephany Gilbert Primary Care Provider Reason for Visit * Reason Comments Chemotherapy Day 1, cycle 3 Ritux imab, cytoxan, brentuximab * Episode Based Medications (Routine) - Authorized Specialty Diagnoses / Procedures Referred By Vicky orr Referred To Contact Diagnoses Encounter for antineoplastic chemotherapy 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) Prevention of chemotherapy-induced neutropenia Procedures [place] INJECTION, RITUXIMAB-PVVR, BIOSIMILAR, (RUXIENCE), 10 MG [place] INJ CYCLOPHOSPHAMD AUROMEDIC [place] BRENTUXIMAB VEDOTIN INJ [place] INJECTION, Logan Person MD [address] [facility] [address] [place], [place] [address] Phone: tel: fax: Hematology/Oncology Treatment, [address] [place] [address] Phone: tel: fax: Referral ID Status Reason Start Date Expiration Date V isits Requested Visits Authorized [id number] Authorized 11/29/2024 11/13/[phone] Encounter Details Date Type Department Care Team (Latest Contact Info) Description 01/29/2025 8:30 AM EDT Hem/Onc Treatment Hematology/Oncolog y Treatment, [address] [place] [address] Kaykay, Chair 7 Hem Onc Scenery [address] [place] [address] [address] Encounter for antineoplastic chemotherapy*; Diffuse large B-cell [...] 8:00 AM EDT Nurse Only Hematology/Oncology Treatment, [place] [address] [place] [phone] Kaykay, Chair 5 Hem Onc Scenery [address] [place] [address] 02/26/2025 9:00 AM EDT Nurse Only Hematology/Oncology Scenery [place] Jai Mccracken [address] [place] [phone] Kaykay Nurse Hem Onc Scenery [address] [place] [address] 03/05/2025 8:00 AM EDT Nurse Only Hematology/Oncology Treatment, [place] 200 [facility], [place] [phone] Park, Chair 9 Hem Onc Scenery [address] [place], [place] [address] 03/05/2025 9:00 AM EDT Nurse Only Hematology/Oncology Scenery Kaykay [place] [address] [place], [place] [address] Park, Nurse Hem Onc Scenery [address] [place], [place] [address] 03/12/2025 12:00 PM EDT Nurse Only Hematology/Oncology Treatment [place] 200 [facility], [place] [phone] Kayaky, Chair 4 Hem Onc Scenery [address] [place], [place] [address] 03/12/2025 12:30 PM EDT Office Visit Hematology/Oncology [facility] [place] [address] [place], [place] [phone] Logan Plummer MD [address] [place], [place] [address] 03/12/2025 1:00 PM EDT Hem/Onc Treatment Hematology/Oncology Treatment, [address], [place] [phone] Kaykay, Chair 4 Hem Onc Scenery [address] [place] [address] Scheduled Procedures Name Priority Associated Diagnoses Date/Ti [...] D LEVEL ONCE IN A LIFETIME-USE SMARTSET# 52207 Completed 10/25/2008 Pneumococcal Vaccine: 50+ Years Completed [...] this encounter Medical Devices Implanted Type Area Formation Testing Operator Device Identifier Shelf Expiration Date Model / Serial / Lot Power Port 8fr Sngl Lumen Plas - [id number] Implanted:Qty : 1 on 12/05/2024 by Taco Sanchez MD at OR [facility] Left: Chest CR BARD : PERIPHERAL VASCULAR [id number] 07/14/2025 [id number] / / [id number] documented as of this encounter Visit Diagnoses [...] mL documented in this encounter Care Teams Account Resolution Specialist Relationship Specialty Start Date End Date Stephany Gilbert CRNP [address] [place] [address] [place] [address] PCP - General Nurse Practitioner 02/02/23 documented as of this encounter
--- OUTSIDE RECORDS SUMMARY | 2025-02-26 17:07 | External Medical Summary ---
Author Name Unknown Address Unknown Organization K09[facility] [place] [address] Laboratory Report Ordering Provider Test Date Status ERIN FLORES 02/19/2025 08:23:21 Final Observation Date Value Abnormality Reference (Units ) Status WBC, Total 02/19/2025 08:23:21 13.88 Above high normal 4 .00-10.80 (K/uL) Final RBC 02/19/2025 08:23:21 3.15 3.85-5.15 (M/uL) Final Hemoglobin 02/19/2025 08:23:21 9.1 Below low normal 12 .0-15.3 (g/dL) Final HCT 02/19/2025 08:23:21 29.9 Below low normal 36. 0-45.2 (%) Final MCV 02/19/2025 08:23:21 94.9 81.5-97.5 (fL) Final MCH 02/19/2025 08:23:21 28.9 27.0-34.0 (pg) Final MCHC 02/19/2025 08:23:21 30.4 32.0-36.0 (g/dL) Final RDW 02/19/2025 08:23:21 19.9 11.5-15.5 (%) Final Platelets 02/19/2025 08:23:21 361 140-400 (K /uL) Final MPV 02/19/2025 08:23:21 9.1 6.6-11.1 ( fL) Final Performing Location [facility] [place] [address]
--- OUTSIDE RECORDS SUMMARY | 2025-02-26 17:07 | External Medical Summary | Summary of Care ---
Author Name Unknown Organization [facility] Address [address] [place] [place] [facility] [place] [address] Phone [phone] Care Team Providers Care Forensic Document Examiner Name Role Phone Stephany Gilbert Primary Care Provider Reason for Visit * Reason Comments Medication Administration Fulphila 6mg * Episode Based Medications (Routine) - Authorized Specialty Diagnoses / Procedures Referred By Vicky orr Referred To Contact Diagnoses Encounter for antineoplastic chemotherapy 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) Prevention of chemotherapy-induced neutropenia Procedures [place] INJECTION, RITUXIMAB-PVVR, BIOSIMILAR, (RUXIENCE), 10 MG MS INJ CYCLOPHOSPHAMD AUROMEDIC MS BRENTUXIMAB VEDOTIN INJ [place] INJECTION, Logan Person MD [address] [place] [address] [place] [address] Phone: tel: fax: Hematology/Oncology Treatment, [address] [address] Phone: tel: fax: Referral ID Status Reason Start Date Expiration Date V isits Requested Visits Authorized [id number] Authorized 11/29/2024 11/13/[phone] Encounter Details Date Type Department Care Team (Latest Contact Info) Description 02/20/2025 1:30 PM EDT Immunization/ Injection Hematology/Oncology Treatment, [address] [address] Kaykay, Chair [address] [place] [address] Encounter for antineoplastic chemotherapy*; Diffuse large B-cell [...] Tablet Take by mouth every other day. Mon-tue-Tue Active Floranex Oral Packet Take by mouth [...] as of this encounter Nursing Notes * Elda Aviles LPN - 02/20/2025 1:28 PM EDT Fulphila 6mg administered Sq into the left upper extremity. Patient tolerated injection and will return in 1 week. documented in this encounter Plan of Treatment Upcoming Encounters Date Type Department Care Team (Late st Contact Info) Description 02/26/2025 8:00 AM EDT Nurse Only Hematology/Oncology Treatment, [place] [address] [place], [place] [phone] Kaykay, Chair 5 Hem Onc [facility] [address] [place], [place] [address] 02/26/2025 9:00 AM EDT Nurse Only Hematology/Oncology [facility] Kaykay [place] [address] [place] [phone] Kaykay, Nurse Hem Onc [facility] [address] [place] [address] 03/05/2025 8:00 AM EDT Nurse Only Hematology/Oncology Treatment, [place] [address] [place] [phone] Kaykay, Chair 9 Hem Onc Scenery [address] [place], [place] [address] 03/05/2025 9:00 AM EDT Nurse Only Hematology/Oncology [facility] [place] [address] [place], [place] [phone] Park, Nurse Hem Onc Scenery 200 [facility] [place], [place] [address] 03/12/2025 12:00 PM EDT Nurse Only Hematology/Oncology Treatment, [address], [place] [phone] Kaykay, Chair 4 Hem Onc [facility] 200 [facility] [place] [address] 03/12/2025 12:30 PM EDT Office Visit Hematology/Oncology [facility] [place] 200 [facility] [place], [place] [phone] Logan Plummer MD [address] [place], [place] [address] 03/12/2025 1:00 PM EDT Hem/Onc Treatment Hematology/Oncology Treatment, [address], [place] [phone] Kaykay, Chair 4 Hem Onc Scenery 200 [facility] [place], [place] [address] Scheduled Procedures Name Priority Associated Diagnoses Date/Ti [...] D LEVEL ONCE IN A LIFETIME-USE SMARTSET# 77719 Completed 10/25/2008 Pneumococcal Vaccine: 50+ Years Completed [...] this encounter Medical Devices Implanted Type Area Inside Phone Sales Device Identifier Shelf Expiration Date Model / Serial / Lot Power Port 8fr Sngl Lumen Plas - [id number] Implanted:Qty : 1 on 12/05/2024 by Taco Sanchez MD at OR [facility] Left: Chest CR BARD : PERIPHERAL VASCULAR [id number] 07/14/2025 [id number] / / [id number] documented as of this encounter Visit Diagnoses Diagnosis Encounter for antineoplastic chemotherapy- Primary 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) Prevention of chemotherapy-induced neutropenia documented in this encounter Administered Medications Inactive Administered Medications - up to 3 most recent administrations Medication Order MAR Action Action Date Dose Rate Site Pegfilgrastim-jmdb (Fulphila) inj 6 mg 6 mg, Subcutaneous, ONCE, On Tue02/20/25 at 1345, For 1 doseIndications:Encounter for antineoplastic chemotherapy,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),Prevention of chemotherapy-induced neutropenia Given 02/20/2025 1:25 PM EDT 6 mg Arm Left Upper documented in this encounter Care Teams Forensic Document Examiner Relationship Specialty Start Date End Date Stephany Gilbert CRNP [address] [place] [address] [place] [address] PCP - General Nurse Practitioner 02/02/23 documented as of this encounter
--- OUTSIDE RECORDS SUMMARY | 2025-02-26 17:07 | External Medical Summary | Summary of Care ---
Author Name Unknown Organization [facility] [address] [facility] [address] Phone [phone] Care Team Providers Care Lieutenant/Deputy Name Role Phone Stephany Gilbert Primary Care Provider Reason for Visit * Reason Comments Chemotherapy Day 1, cycle 3 Ritux imab, cytoxan, brentuximab * Episode Based Medications (Routine) - Authorized Specialty Diagnoses / Procedures Referred By Vicky orr Referred To Contact Diagnoses Encounter for antineoplastic chemotherapy 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) Prevention of chemotherapy-induced neutropenia Procedures [place] INJECTION, RITUXIMAB-PVVR, BIOSIMILAR, (RUXIENCE), 10 MG [place] INJ CYCLOPHOSPHAMD AUROMEDIC [place] BRENTUXIMAB VEDOTIN INJ [place] INJECTION, Logan Person MD [address] [facility] [address] [place], [place] [address] Phone: tel: fax: Hematology/Oncology Treatment, [address] [place] [address] Phone: tel: fax: Referral ID Status Reason Start Date Expiration Date V isits Requested Visits Authorized [id number] Authorized 11/29/2024 11/13/[phone] Encounter Details Date Type Department Care Team (Latest Contact Info) Description 01/29/2025 8:30 AM EDT Hem/Onc Treatment Hematology/Oncolog y Treatment, [address] [place] [address] Kaykay, Chair 7 Hem Onc Scenery [address] [place] [address] Encounter for antineoplastic chemotherapy*; 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); Prevention of chemotherapy-induced neutropenia Allergies Active Allergy Reactions Criticality Noted Date Comments Nickel Rash 03/11/2015 documented as of this encounter (statuses as of 02/22/2025) Medications CALTRATE 600 + D 600-125 MG-IU [...] as of this encounter (statuses as of 02/22/2025) Active Problems Problem Noted Date Diagnosed Date Encounter for adjustment and management of vascular access device 01/08/2025 Prevention of chemotherapy-induced neutropenia 0 12/31/2024 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 11/29/2024 Encounter for antineoplastic chemotherapy 2024 BREAST CANCER UNSPECIFIED,FEMALE 10/25/2008 Other iron deficiency anemia Overview (08/15/2017): ICD-10 update of inactive term Osteoporosis documented as of this encounter (statuses as of 02/22/2025) Resolved Problems Problem Noted Date Diagnosed Date Resolved Date Other iron deficiency anemia 12/19/2008 Overview (08/15/2017): Resolved per Duplicate Protocol #2. ICD-10 update of inactive term documented as of this encounter (statuses as of 02/22/2025) Social History Tobacco Use Types Packs/Day Years [...] 8:00 AM EDT Nurse Only Hematology/Oncology Treatment, [place] [address] [place] [phone] Kaykay, Chair 5 Hem Onc Scenery [address] [place] [address] 02/26/2025 9:00 AM EDT Nurse Only Hematology/Oncology Scenery [place] Jai Mccracken [address] [place] [phone] Kaykay Nurse Hem Onc Scenery [address] [place] [address] 03/05/2025 8:00 AM EDT Nurse Only Hematology/Oncology Treatment, [place] 200 [facility], [place] [phone] Park, Chair 9 Hem Onc Scenery [address] [place], [place] [address] 03/05/2025 9:00 AM EDT Nurse Only Hematology/Oncology Scenery Kaykay [place] [address] [place], [place] [address] Park, Nurse Hem Onc Scenery [address] [place], [place] [address] 03/12/2025 12:00 PM EDT Nurse Only Hematology/Oncology Treatment [place] [address] [facility], [place] [phone] Kaykay, Chair 4 Hem Onc Scenery [address] [place], [place] [address] 03/12/2025 12:30 PM EDT Office Visit Hematology/Oncology [facility] [place] [address] [place], [place] [phone] Logan Plummer MD [address] [place], [place] [address] 03/12/2025 1:00 PM EDT Hem/Onc Treatment Hematology/Oncology Treatment, [address], [place] [phone] Kaykay, Chair 4 Hem Onc Scenery [address] [place] [address] Scheduled Procedures Name Priority Associated Diagnoses Date/Ti [...] D LEVEL ONCE IN A LIFETIME-USE SMARTSET# 30571 Completed 10/25/2008 Pneumococcal Vaccine: 50+ Years Completed [...] this encounter Medical Devices Implanted Type Area Adapted Physical Education Aide Device Identifier Shelf Expiration Date Model / Serial / Lot Power Port 8fr Sngl Lumen Plas - [id number] Implanted:Qty : 1 on 12/05/2024 by Taco Sanchez MD at OR [facility] Left: Chest CR BARD : PERIPHERAL VASCULAR [id number] 07/14/2025 [id number] / / [id number] documented as of this encounter Visit Diagnoses [...] mL documented in this encounter Care Teams Lieutenant/Deputy Relationship Specialty Start Date End Date Stephany Gilbert CRNP [address] [place] [address] [place] [address] PCP - General Nurse Practitioner 02/02/23 documented as of this encounter
--- OUTSIDE RECORDS SUMMARY | 2025-02-26 17:07 | External Medical Summary ---
Author Name Unknown Address Unknown Organization [facility] [address] [place] [address] Laboratory Report Ordering Provider Test Date Status ERIN FLORES 02/19/2025 08:23:21 Final Observation Date Value Abnormality Reference (Units ) Status LDH 02/19/2025 08:23:21 254 Above high normal <= 250 (U/L) Final Performing Location [facility] - [address] [place] [address]
--- OUTSIDE RECORDS SUMMARY | 2025-02-26 17:07 | External Medical Summary ---
Author Name Unknown Address Unknown Organization K09:[facility] [place] [address] Laboratory Report Ordering Provider Test Date Status ERIN FLORES 02/19/2025 08:23:21 Correction Observation Date Value Abnormality Reference (Units ) Status Magnesium 02/19/2025 08:23:21 1.9 1.5-2.6 (m g/dL) Final Performing Location [facility] [place] [address]
--- OUTSIDE RECORDS SUMMARY | 2025-02-26 17:07 | External Medical Summary | Summary of Care ---
Author Name Unknown Organization [facility] [address] [facility] [address] Phone [phone] Care Team Providers Care Internet Assessor Name Role Phone Stephany Gilbert Primary Care Provider Reason for Visit * Reason Comments Chemotherapy Day 1, cycle 3 Ritux imab, cytoxan, brentuximab * Episode Based Medications (Routine) - Authorized Specialty Diagnoses / Procedures Referred By Vicky orr Referred To Contact Diagnoses Encounter for antineoplastic chemotherapy 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) Prevention of chemotherapy-induced neutropenia Procedures [place] INJECTION, RITUXIMAB-PVVR, BIOSIMILAR, (RUXIENCE), 10 MG [place] INJ CYCLOPHOSPHAMD AUROMEDIC [place] BRENTUXIMAB VEDOTIN INJ [place] INJECTION, Logan Person MD 200 [facility] [address] [place], [place] [address] Phone: tel: fax: Hematology/Oncology Treatment, [address] [place] [address] Phone: tel: fax: Referral ID Status Reason Start Date Expiration Date V isits Requested Visits Authorized [id number] Authorized 11/29/2024 11/13/2099 999 99 Encounter Details Date Type Department Care Team (Latest Contact Info) Description 01/29/2025 8:30 AM EDT Hem/Onc Treatment Hematology/Oncolog y Treatment, [address] [place] [address] Kaykay, Chair 7 Hem Onc Scenery [address] [place] [address] [address] Encounter for antineoplastic chemotherapy*; Diffuse large B-cell [...] 8:00 AM EDT Nurse Only Hematology/Oncology Treatment, [place] [address] [place] [phone] Kaykay, Chair 5 Hem Onc Scenery [address] [place] [address] 02/26/2025 9:00 AM EDT Nurse Only Hematology/Oncology Scenery [place] Jai M[place]racken [address] [place] [phone] Kaykay Nurse Hem Onc Scenery [address] [place] [address] 03/05/2025 8:00 AM EDT Nurse Only Hematology/Oncology Treatment, [place] 200 [facility], [place] [phone] Park, Chair 9 Hem Onc Scenery [address] [place], [place] [address] 03/05/2025 9:00 AM EDT Nurse Only Hematology/Oncology Scenery Kaykay [place] [address] [place], [place] [address] Park, Nurse Hem Onc Scenery [address] [place], [place] [address] 03/12/2025 12:00 PM EDT Nurse Only Hematology/Oncology Treatment [place] 200 [facility], [place] [phone] Kaykay, Chair 4 Hem Onc Scenery [address] [place], [place] [address] 03/12/2025 12:30 PM EDT Office Visit Hematology/Oncology [facility] [place] [address] [place], [place] [phone] Logan Plummer MD [address] [place], [place] [address] 03/12/2025 1:00 PM EDT Hem/Onc Treatment Hematology/Oncology Treatment, [address], [place] [phone] Kaykay, Chair 4 Hem Onc Scenery [address] [place] [address] Scheduled Procedures Name Priority Associated Diagnoses Date/Ti [...] D LEVEL ONCE IN A LIFETIME-USE SMARTSET# 05628 Completed 10/25/2008 Pneumococcal Vaccine: 50+ Years Completed [...] this encounter Medical Devices Implanted Type Area Field Sales Representative Device Identifier Shelf Expiration Date Model / Serial / Lot Power Port 8fr Sngl Lumen Plas - [id number] Implanted:Qty : 1 on 12/05/2024 by Taco Sanchez MD at OR [facility] Left: Chest CR BARD : PERIPHERAL VASCULAR [id number] 07/14/2025 [id number] / / [id number] documented as of this encounter Visit Diagnoses [...] mL documented in this encounter Care Teams Internet Assessor Relationship Specialty Start Date End Date Stephany Gilbert CRNP [address] [place] [address] [place] [address] PCP - General Nurse Practitioner 02/02/23 documented as of this encounter
--- OUTSIDE RECORDS SUMMARY | 2025-02-26 17:07 | External Medical Summary | Summary of Care ---
Author Name Unknown Organization [facility] Address [address] [facility] [place] [address] Phone [phone] Care Team Providers Care Chef De Cuisine Name Role Phone Stephany Gilbert Primary Care Provider Reason for Visit * Reason Comments Medication Administration Fulphila 6mg * Episode Based Medications (Routine) - Authorized Specialty Diagnoses / Procedures Referred By Vicky orr Referred To Contact Diagnoses Encounter for antineoplastic chemotherapy 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) Prevention of chemotherapy-induced neutropenia Procedures GA INJECTION, RITUXIMAB-PVVR, BIOSIMILAR, (RUXIENCE), 10 MG GA INJ CYCLOPHOSPHAMD AUROMEDIC GA BRENTUXIMAB VEDOTIN INJ GA INJECTION, Logan Person MD [address] [place] [address] [place] [address] Phone: tel: fax: Hematology/Oncology Treatment, [address] [address] Phone: tel: fax: Referral ID Status Reason Start Date Expiration Date V isits Requested Visits Authorized [id number] Authorized 11/29/2024 11/13/[phone] Encounter Details Date Type Department Care Team (Latest Contact Info) Description 01/30/2025 1:00 PM EDT Immunization/ Injection Hematology/Oncology Treatment, [address] [phone] Kaykay, Chair 7 Hem Onc [address] [place] [address] Encounter for antineoplastic chemotherapy*; Diffuse large [...] Nursing Notes * Elda Aviles LPN - 01/30/2025 1:13 PM EDT Fulphila 6mg administered SQ into the left upper extremity. Patient tolerated injection and will return in 1 week. documented in this encounter Plan of Treatment Upcoming Encounters Date Type Department Care Team (Late st Contact Info) Description 02/26/2025 8:00 AM EDT Nurse Only Hematology/Oncology Treatment, [address], [place] [phone] Kaykay, Chair 5 Hem Onc [place] [address] [facility] [place], [place] [address] 02/26/2025 9:00 AM EDT Nurse Only Hematology/Oncology [place] [address] [place] [phone] Kaykay, Nurse Hem Onc [facility] 200 [facility] [place], [place] [address] 03/05/2025 8:00 AM EDT Nurse Only Hematology/Oncology Treatment, [address], [place] [phone] Kaykay, Chair 9 Hem Onc [place] [address] [facility] [place] [address] 03/05/2025 9:00 AM EDT Nurse Only Hematology/Oncology [facility] [place] [address] [place], [place] [phone] Kaykay, Nurse Hem Onc [facility] [address] [facility] [place] [address] 03/12/2025 12:00 PM EDT Nurse Only Hematology/[address]cology [address] [phone] Kaykay, Chair 4 Hem Onc [facility] [address] [facility] [place] [address] 03/12/2025 12:30 PM EDT Office Visit Hematology/Oncology [facility] [place] [address] [place] [phone] Logan Plummer MD 200 [facility] [place] [address] 03/12/2025 1:00 PM EDT Hem/Onc Treatment [address]ematology/[address] [phone] Kaykay, Chair 4 Hem Onc [facility] [address] [facility] [place], [place] [address] Scheduled Procedures Name Priority Associated Diagnoses Date/Ti [...] D LEVEL ONCE IN A LIFETIME-USE SMARTSET# 55736 Completed 10/25/2008 Pneumococcal Vaccine: 50+ Years Completed [...] this encounter Medical Devices Implanted Type Area Design Cell Engineer Device Identifier Shelf Expiration Date Model / Serial / Lot Power Port 8fr Sngl Lumen Plas - [id number] Implanted:Qty : 1 on 12/05/2024 by Taco Sanchez MD at OR [facility] Left: Chest CR BARD : PERIPHERAL VASCULAR [id number] 07/14/2025 [id number] / / [id number] documented as of this encounter Visit Diagnoses Diagnosis Encounter for antineoplastic chemotherapy- Primary 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) Prevention of chemotherapy-induced neutropenia documented in this encounter Administered Medications Inactive Administered Medications - up to 3 most recent administrations Medication Order MAR Action Action Date Dose Rate Site Pegfilgrastim-jmdb (Fulphila) inj 6 mg 6 mg, Subcutaneous, ONCE, On Tue01/30/25 at 1330, For 1 doseIndications:Encounter for antineoplastic chemotherapy,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),Prevention of chemotherapy-induced neutropenia Given 01/30/2025 12:58 PM EDT 6 mg Arm Left Upper documented in this encounter Care Teams Chef De Cuisine Relationship Specialty Start Date End Date Stephany Gilbert CRNP [address] [place] [address] [place] [address] PCP - General Nurse Practitioner 02/02/23 documented as of this encounter
--- OUTSIDE RECORDS SUMMARY | 2025-02-26 17:08 | External Medical Summary ---
Author Name Unknown Address Unknown Organization K09:[facility] [place] [address] Laboratory Report Ordering Provider Test Date Status ERIN FLORES 02/11/2025 08:06:54 Final Observation Date Value Abnormality Reference (Units ) Status Magnesium 02/11/2025 08:06:54 1.7 1.5-2.6 (m g/dL) Final Performing Location [facility] [place] [place] [address]
--- OUTSIDE RECORDS SUMMARY | 2025-02-26 17:08 | External Medical Summary | Summary of Care ---
Author Name Unknown Organization [facility] Address [address] [facility] [place] [address] Phone [phone] Care Team Providers Care Respiratory Therapy Assistant Name Role Phone Stephany Gilbert Primary Care Provider Encounter Details Date Type Department Care Team (Late st Contact Info) Description 02/06/2025 Orders Only Hematology/Oncology [place] [place] [address] [facility] [place] [phone] Logan Plummer MD [address] [facility] [place] [address] Allergies Active Allergy Reactions Criticality Noted Date Comments Nickel Rash 03/11/2015 documented as of this encounter (statuses as of 02/06/2025) Medications CALTRATE 600 + D 600-125 MG-IU [...] the morning. 60 Tablet 1 5 Active documented as of this encounter (statuses as of 02/06/2025) Active Problems Problem Noted Date Diagnosed Date [...] as of this encounter (statuses as of 02/06/2025) Resolved Problems Problem Noted Date Diagnosed Date Resolved Date Other iron deficiency anemia 12/19/2008 Overview (08/15/2017): Resolved per Duplicate Protocol #2. ICD-10 update of inactive term documented as of this encounter (statuses as of 02/06/2025) Social History Tobacco Use Types Packs/Day Years [...] on file documented as of this encounter Plan of Treatment Upcoming Encounters Date Type Department Care Team (Late st Contact Info) Description 02/11/2025 7:45 AM EDT Hem/Onc Treatment [facility]ematology[facility]cology [facility], [place] [facility] [phone] Kaykay, Chair 1 Hem On[address] [place] [address] 02/11/2025 12:45 PM EDT Imaging Radiology [address] [place] [phone] 02/14/2025 9:30 AM EDT [facility] [phone] 02/14/2025 10:00 AM EDT Office Visit Hematology/Oncology [facility] [place] [address] [facility] [place] [phone] Logan Plummer MD [address] [facility] [place] [address] 02/19/2025 8:45 AM EDT Hem[facility] [address] [facility] [place] [phone] Kaykay, Chair 3 Hem Onc [address] [place] [address] Scheduled Procedures Name Priority Associated Diagnoses Date/Ti [...] D LEVEL ONCE IN A LIFETIME-USE SMARTSET# 23345 Completed 10/25/2008 Pneumococcal Vaccine: 50+ Years Completed [...] this encounter Medical Devices Implanted Type Area Catering Associate Device Identifier Shelf Expiration Date Model / Serial / Lot Power Port 8fr Sngl Lumen Plas - [id number] Implanted:Qty : 1 on 12/05/2024 by Taco Sanchez MD at OR [facility] Left: Chest CR BARD : PERIPHERAL VASCULAR [id number] 07/14/2025 [id number] / / [id number] documented as of this encounter Care Teams Respiratory Therapy Assistant Relationship Specialty Start Date End Date Stephany Gilbert CRNP [address] [place] [address] [place] [address] PCP - General Nurse Practitioner 02/02/23 documented as of this encounter
--- OUTSIDE RECORDS SUMMARY | 2025-02-26 17:08 | External Medical Summary | Summary of Care ---
Author Name Unknown Organization [facility] [address] [facility] [place] [address] Phone [phone] Care Team Providers Care Conservation Coordinator Name Role Phone Stephany Gilbert Primary Care Provider Reason for Visit * Reason Comments Procedure Labs from port/port flush Encounter Details Date Type Department Care Team (Late st Contact Info) Description 02/14/2025 9:30 AM EDT Nurse Only Hematology/Oncology Treatment, [place] [address] [place] [address] Procedure (Labs from port/port flush ) Allergies Active Allergy Reactions Criticality Noted Date Comments Nickel Rash 03/11/2015 documented as of this encounter (statuses as of 02/14/2025) Medications CALTRATE 600 + D 600-125 MG-IU [...] 1-5 of each cycle 10 Tablet 5 02/04/202 5 Active Acyclovir 400 MG Oral Tablet (Zovirax)Indicat ions: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) Take 1 Tablet by mouth in the morning and 1 Tablet before bedtime. 180 Tablet 3 5 Active Potassium Chloride ER 10 MEQ Oral Tablet Extended ReleaseIndicatio ns:Diarrhea, unspecified type,Hypokalemia Take 2 Tablets by mouth in the morning. 60 Tablet 1 Active Additional Information Patient not taking.Reported on 02/14/2025 documented as of this encounter (statuses as of 02/14/2025) Active Problems Problem Noted Date Diagnosed Date [...] as of this encounter (statuses as of 02/14/2025) Resolved Problems Problem Noted Date Diagnosed Date Resolved Date Other iron deficiency anemia 12/19/2008 Overview (08/15/2017): Resolved per Duplicate Protocol #2. ICD-10 update of inactive term documented as of this encounter (statuses as of 02/14/2025) Social History Tobacco Use Types Packs/Day Years [...] Nursing Notes * Yanira Muller RN - 02/14/2025 10:40 AM EDT Patient saw Dr. Plummer - manuela to de-access port. CMP and mag was not drawn. Per Dr. Plummer, manuela to wait for CBCD results and de- access if CBCD is okay. No need to have CMP or mag drawn since patient will return for treatment Monday 02/19. Hgb is 8.9 and other labs in CBCD are overall WNL. Port needle removed, gauze dressing applied and intact. Patient informed we will check her other lab results on Tuesday when she returns for treatment. Patient agreeable and denies any diarrhea, continues to take PO potassium at this time. Patient left facility in stable condition with and denied further needs at this time. * Yanira Muller, RN - 02/14/2025 10:34 AM EDT Chair 2. Port accessed, no issues. CBCD drawn via port per protocol with appropriate amount of waste drawn. Port flushed with 10 ml NSS and locked with 10 ml NSS. Alcohol cap applied and port clamped. Patient is to see Dr. Plummer following lab draw for f/u. Patient will return back to tx room if no infusions/transfusion needed. Patient ambulated back to waiting room prior to seeing Dr. Plummer. Denies further needs. documented in this encounter Plan of Treatment Upcoming Encounters Date Type Department Care Team (Late st Contact Info) Description 02/19/2025 8:45 AM EDT Hem/Onc Treatment Hematology/Oncology Treatment, [place] [address] [facility] [place] [phone] Kaykay, Chair 3 Hem Onc [facility] 200 [facility] [place] [address] Scheduled Procedures Name Priority Associated Diagnoses Date/Ti [...] D LEVEL ONCE IN A LIFETIME-USE SMARTSET# 85457 Completed 10/25/2008 Pneumococcal Vaccine: 50+ Years Completed [...] this encounter Medical Devices Implanted Type Area Labor Delivery Specialist Device Identifier Shelf Expiration Date Model / Serial / Lot Power Port 8fr Sngl Lumen Plas - [id number] Implanted:Qty : 1 on 12/05/2024 by Taco Sanchez MD at OR [facility] Left: Chest CR BARD : PERIPHERAL VASCULAR [id number] 07/14/2025 [id number] / / [id number] documented as of this encounter Procedures Procedure Name Priority Date/Time Associated Diagnosis Comments DIFFERENTIAL, AUTOMATED STAT 02/14/2025 9:53 AM EDT Diarrhea, unspecified type 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) CBC STAT 02/14/2025 9:53 AM EDT Diarrhea, unspecified type 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) CBC STAT 02/14/2025 9:53 AM EDT Diarrhea, unspecified type 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) DIFFERENTIAL, TECHNOLOGIST REVIEW Routine 02/14/2025 9:53 AM EDT Diarrhea, unspecified type 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) documented in this encounter Results * (ABNORMAL) DIFFERENTIAL, TECHNOLOGIST REVIEW (02/14/2025 9:53 AM EDT) WBC 14.30(H) 4.00 - 10.80 K/uL 02/14/2025 10:19 AM EDT [facility] 56-02 Neutrophils % 73.0 40.0 - 75.0 % 02/14/2025 10:19 AM EDT [facility] 56-02 Lymphocytes % 9.0(L) 18.0 - 42.0 % 02/14/2025 10:19 AM EDT [facility] 56-02 Monocytes % 13.0(H) 1.0 - 11.0 % 02/14/2025 10:19 AM EDT [facility] 56-02 Eosinophils % 1.0 0.0 - 6.0 % 02/14/2025 10:19 AM EDT [facility] 56-02 Metamyelocytes % 4.0(H) <=0.0 % 02/15/20 10:19 AM EDT [facility] 56-02 Absolute Neutrophils 10.44(H) 1.80 - 7.70 K/uL 02/14/2025 10:19 AM EDT [facility] 56-02 Absolute Lymphocytes 1.29 1.00 - 4.80 K/uL 02/14/2025 10:19 AM EDT [facility] 56-02 Absolute Monocytes 1.86(H) 0.00 - 1.10 K/uL 02/14/2025 10:19 AM EDT [facility] 56-02 Absolute Eosinophils 0.14 0.00 - 0.70 K/uL 02/14/2025 10:19 AM EDT [facility] 56-02 Absolute Metamyelocytes 0.57(H) <=0.00 K/uL 02/14/2025 10:19 AM EDT [facility] 56- nRBCs 02/14/2025 10:19 AM EDT [facility] Reactive Lymphocytes Present(A ) None Seen 02/14/2025 10:19 AM EDT [facility] 56- Blood Venous blood specimen / Unknown Central Line / Unknown 02/14/2025 9:53 AM EDT 02/14/2025 9:57 AM EDT Logan Plummer MD LAB BLOOD ORDERABLES Final Res ult [facility] [address] [place] [phone] * DIFFERENTIAL, AUTOMATED (02/14/2025 9:53 AM EDT) Blood Venous blood specimen / Unknown Central Line / Unknown 02/14/2025 9:53 AM EDT 02/14/2025 9:57 AM EDT us Logan Plummer MD LAB BLOOD ORDERABLES Final Res ult Performing Organization Address City/[facility]/ZIP Co de Phone Number [facility] [address] [place] [phone] * (ABNORMAL) CBC (02/14/2025 9:53 AM EDT) WBC 14.30(H) 4.00 - 10.80 K/uL 02/14/2025 10:19 AM EDT [facility] RBC 3.00 3.85 - 5.15 M/uL 02/14/2025 10:19 AM EDT [facility] 56- HGB 8.9(L) 12.0 - 15.3 g/dL 02/14/2025 10:19 AM EDT [facility] 56 HCT 28.4(L) 36.0 - 45.2 % 02/14/2025 10:19 AM EDT [facility] 56- MCV 94.7 81.5 - 97.5 fL 02/14/2025 10:19 AM EDT [facility] 56 MCH 29.7 27.0 - 34.0 pg 02/14/2025 10:19 AM EDT [facility] 56 MCHC 31.3 32.0 - 36.0 g/dL 02/14/2025 10:19 AM EDT [facility] 56 RDW 20.1 11.5 - 15.5 % 02/14/2025 10:19 AM EDT [facility] 56 PLT 279 140 - 400 K/uL 02/14/2025 10:19 AM EDT [facility] 56 MPV 9.3 6.6 - 11.1 fL 02/14/2025 10:19 AM EDT [facility] 56 Blood Venous blood specimen / Unknown Central Line / Unknown 02/14/2025 9:53 AM EDT 02/14/2025 9:57 AM EDT us Logan Plummer MD LAB BLOOD ORDERABLES Final Res ult [facility] 56 [address] [place] [address] documented in this encounter Visit Diagnoses Diagnosis Encounter for adjustment and management of vascular access device- Primary 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) Diarrhea, unspecified type documented in this encounter Administered Medications Active Administered Medications - up to 3 most recent administrations Medication Order MAR Action Action Date Dose Rate Site sodium chloride 0.9 % flush/inj 10 mL 10 mL, IV Push, PRN line flush, Starting on Fiorella 02/14/25 at 0937, Until Discontinued, Do not flush if lock, PICC, or central line not in place; IV infusing or unable to flush. For midlines and central lines.Indications:Encounter for adjustment and management of vascular access device,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) sodium chloride 0.9 % flush/inj 20 mL 20 mL, IV Push, PRN IV Flush and Lock, Starting on Fiorella 02/14/25 at 0937, Until Discontinued, Do not flush if lock, PICC, or central line not in place; IV infusing or unable to flush. For midlines and central lines. For IV Flush and Lock, IVAD is flushed with a total of 20 mL Normal Saline, 10 mL of Normal Saline Flush with 10 mL of Normal Saline acting as IV LOCK.Indications:Encounter for adjustment and management of vascular access device,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) Given 02/14/2025 9:41 AM EDT 20 mL documented in this encounter Care Teams Conservation Coordinator Relationship Specialty Start Date End Date Stephany Gilbert CRNP [address] [place] [address] [place] [address] PCP - General Nurse Practitioner 02/02/23 documented as of this encounter
--- OUTSIDE RECORDS SUMMARY | 2025-02-26 17:08 | External Medical Summary | Summary of Care ---
Author Name Unknown Organization [facility] Address [address] [place] [place] [address] Phone [phone] Care Team Providers Care C S S Representative Name Role Phone Stephany Gilbert Primary Care Provider Encounter Details Date Type Department Care Team (Late st Contact Info) Description 02/06/2025 Orders Only Hematology/Oncology, [facility] [address] [place] [address] Sammie Doan CRNP [address] [place] [address] Allergies Active Allergy Reactions Criticality Noted Date [...] 02/14/2025 9:30 AM EDT [facility] 200 [facility], [place] [phone] 02/14/2025 10:00 AM EDT Office Visit Hematology/Oncology [facility] [place] 200 [facility] [place] [phone] Logan Plummer MD 200 [facility] [place] [address] 02/19/2025 8:45 AM EDT Hem[facility] [phone] Kaykay, Chair 3 Hem Onc [address] [place] [address] Scheduled Procedures Name Priority Associated Diagnoses Date/Ti [...] D LEVEL ONCE IN A LIFETIME-USE SMARTSET# 73092 Completed 10/25/2008 Pneumococcal Vaccine: 50+ Years Completed [...] this encounter Medical Devices Implanted Type Area Systems Analysis Manager Device Identifier Shelf Expiration Date Model / Serial / Lot Power Port 8fr Sngl Lumen Plas - [id number] Implanted:Qty : 1 on 12/05/2024 by Taco Sanchez MD at [facility] Left: Chest CR BARD : PERIPHERAL VASCULAR [id number] 07/14/2025 [id number] / / [id number] documented as of this encounter Care Teams C S S Representative Relationship Specialty Start Date End Date Stephany Gilbert CRNP [address] [place] [address] [place] [address] PCP - General Nurse Practitioner 02/02/23 documented as of this encounter
--- OUTSIDE RECORDS SUMMARY | 2025-02-26 17:08 | External Medical Summary | Summary of Care ---
Author Name Unknown Organization [facility] Address [address] [facility] [place] [address] Phone [phone] Care Team Providers Care Photo Mask Inspector Name Role Phone Stephany Gilbert Primary Care Provider Reason for Visit * Reason Comments Procedure Port flush/labs from port Encounter Details Date Type Department Care Team (Latest Contact Info) Description 02/11/2025 7:45 AM EDT Hem/Onc Treatment Hematology/Oncology Treatment, [place] [address] [place] [address] Kaykay, Chair 1 Hem Onc Scenery [address] [place] [address] Encounter for adjustment and management of vascular access device*; 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); Diarrhea, unspecified type Allergies Active Allergy Reactions Criticality Noted Date Comments Nickel Rash 03/11/2015 documented as of this encounter (statuses as of 02/12/2025) Medications CALTRATE 600 + D 600-125 MG-IU [...] as of this encounter (statuses as of 02/12/2025) Active Problems Problem Noted Date Diagnosed Date [...] as of this encounter (statuses as of 02/12/2025) Resolved Problems Problem Noted Date Diagnosed Date Resolved Date Other iron deficiency anemia 12/19/2008 Overview (08/15/2017): Resolved per Duplicate Protocol #2. ICD-10 update of inactive term documented as of this encounter (statuses as of 02/12/2025) Social History Tobacco Use Types Packs/Day Years [...] as of this encounter Nursing Notes * Oneida Rene, CLAUDIO - 02/11/2025 4:39 PM EDT Chair 7. Pt presents for labs from port/port flush. Pt states diarrhea has resolved, and aside fromfatigue she is feeling well. VAD accessed with positive blood return; specimen collected for ordered labs. Port needle flushed with 10 ml NSS, blood return noted, and port locked with additional 10 ml NSS. Boston needle left intact for possible use with PET scan scheduled today. Pt advised to returnto clinic following scan if boston needle has not been removed. Pt waited in clinic for lab results. K+ 5.2, Mag 1.7. Reviewed labs with Etelvina ELLIOTT; pt advised to hold PO K+ at this time. Pt is scheduled for labs, treatment 02/14/25. Pt left clinic for PET scan appointment, and returned around 1440 to have port deaccessed. Port needle flushed with 10 ml NSS, blood return noted, and port locked with additional 10 ml NSS. Boston needle removed, intact, gauze dressing applied. Pt discharged in stable condition. documented in this encounter Plan of Treatment Upcoming Encounters Date Type Department Care Team (Late st Contact Info) Description 02/14/2025 9:30 AM EDT Nurse Only Hematology/[address] [phone] 02/14/2025 10:00 AM EDT Office Visit Hematology/Oncology [facility] [place] [address] [address] [place] [address] Logan Plummer MD [address] [place] [address] [place] [address] 02/19/2025 8:45 AM EDT Hem/Onc Treatment Hematology/Oncology Treatment, [address] [place] [address] Kaykay, Chair [address] [place] [address] Scheduled Procedures Name Priority Associated Diagnoses Date/Ti [...] D LEVEL ONCE IN A LIFETIME-USE SMARTSET# 65433 Completed 10/25/2008 Pneumococcal Vaccine: 50+ Years Completed [...] this encounter Medical Devices Implanted Type Area Pest Control Pilot Device Identifier Shelf Expiration Date Model / Serial / Lot Power Port 8fr Sngl Lumen Plas - [id number] Implanted:Qty : 1 on 12/05/2024 by Taco Sanchez MD at OR [facility] Left: Chest CR BARD : PERIPHERAL VASCULAR [id number] 07/14/2025 [id number] / / [id number] documented as of this encounter Procedures Procedure Name Priority Date/Time Associated Diagnosis Comments DIFFERENTIAL, AUTOMATED STAT 02/11/2025 8:06 AM EDT Diarrhea, unspecified type 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) COMPREHENSIVE METABOLIC PANEL STAT 02/11/2025 8:06 AM EDT Diarrhea, unspecified type 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) CBC STAT 02/11/2025 8:06 AM EDT Diarrhea, unspecified type 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) CBC STAT 02/11/2025 8:06 AM EDT Diarrhea, unspecified type 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) DIFFERENTIAL, TECHNOLOGIST REVIEW Routine 02/11/2025 8:06 AM EDT Diarrhea, unspecified type 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) MAGNESIUM STAT 02/11/2025 8:06 AM EDT Diarrhea, unspecified type 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) documented in this encounter Results * (ABNORMAL) DIFFERENTIAL, TECHNOLOGIST REVIEW (02/11/2025 8:06 AM EDT) WBC 23.76(H) 4.00 - 10.80 K/uL 02/11/2025 8:37 AM EDT [facility] 56-02 Neutrophils % 80.0(H) 40.0 - 75.0 % 02/11/2025 8:37 AM EDT [facility] 56-02 Lymphocytes % 3.0(L) 18.0 - 42.0 % 02/11/2025 8:37 AM EDT [facility] 56-02 Monocytes % 6.0 1.0 - 11.0 % 02/11/2025 8:37 AM EDT [facility] 56-02 Eosinophils % 1.0 0.0 - 6.0 % 02/11/2025 8:37 AM EDT [facility] 56-02 Metamyelocytes % 8.0(H) <=0.0 % 02/12/20 8:37 AM EDT [facility] 56 Myelocytes % 2.0(H) <=0.0 % 02/11/2025 8:37 AM EDT [facility] 56 Absolute Neutrophils 19.01(H) 1.80 - 7.70 K/uL 02/11/2025 8:[address] EDT [address] Absolute Lymphocytes 0.71(L) 1.00 - 4.80 K/uL 02/11/2025 8:37 AM EDT [address] Absolute Monocytes 1.43(H) 0.00 - 1.10 K/uL 02/11/2025 8:37 AM EDT [address] Absolute Eosinophils 0.24 0.00 - 0.70 K/uL 02/11/2025 8:37 AM EDT [address] Absolute Metamyelocytes 1.90(H) <=0.00 K/uL 02/11/2025 8:37 AM EDT [address] Absolute Myelocytes 0.48(H) <=0.00 K/uL 02/11/2025 8:37 AM EDT [address] nRBCs 02/11/2025 8:37 AM EDT [address] Elliptocytes Moderate( A) None Seen 02/11/2025 8:37 AM EDT [address] Polychromasia Moderate( A) None Seen 02/11/2025 8:37 AM EDT [facility] 56 Blood Blood sample taken from central line / Unknown Central Line / Unknown 02/11/2025 8:06 AM EDT 02/11/2025 8:11 AM EDT us Logan Plummer MD LAB BLOOD ORDERABLES Final Res ult [facility] [address]- [address] [place], [place] [id number] * DIFFERENTIAL, AUTOMATED (02/11/2025 8:06 AM EDT) Blood Blood sample taken from central line / Unknown Central Line / Unknown 02/11/2025 8:06 AM EDT 02/11/2025 8:11 AM EDT Logan Plummer MD LAB BLOOD ORDERABLES Final Res ult [facility] [address]- [address] [place] [address] * (ABNORMAL) CBC (02/11/2025 8:06 AM EDT) [facility] Signature WBC 23.76(H) 4.00 - 10.80 K/uL 02/11/2025 8:37 AM EDT [facility] 56 RBC 3.08 3.85 - 5.15 M/uL 02/11/2025 8:[address]T [address] HGB 8.8(L) 12.0 - 15.3 g/dL 02/11/2025 8:[address]T [address] HCT 29.0(L) 36.0 - 45.2 % 02/11/2025 8:37 AM EDT [facility] 56 MCV 94.2 81.5 - 97.5 fL 02/11/2025 8:37 AM EDT [facility] 56 MCH 28.6 27.0 - 34.0 pg 02/11/2025 8:37 AM EDT [facility] 56 MCHC 30.3 32.0 - 36.0 g/dL 02/11/2025 8:37 AM EDT [facility] 56 RDW 20.5 11.5 - 15.5 % 02/11/2025 8:37 AM EDT [facility] 56 PLT 290 140 - 400 K/uL 02/11/2025 8:37 AM EDT [facility] 56 MPV 9.3 6.6 - 11.1 fL 02/11/2025 8:37 AM EDT [facility] 56- Blood Blood sample taken from central line / Unknown Central Line / Unknown 02/11/2025 8:06 AM EDT 02/11/2025 8:11 AM EDT Logan Plummer MD LAB BLOOD ORDERABLES Final Res ult [facility] [address] [place] [address] * (ABNORMAL) COMPREHENSIVE METABOLIC PANEL (02/11/2025 8:06 AM EDT) BUN 12 6 - 20 mg/dL 02/11/2025 8:52 AM EDT [facility] 56- CREATININE 0.7 0.5 - 1.0 mg/dL 02/11/2025 8:52 AM EDT [facility] 56- EGFR 87 >=60 mL/min 02/11/2025 8:52 AM EDT [facility] Comment:eGFR is calculated b ased on the CKD-EPI 2020 equation. SODIUM 136 135 - 146 mmol/L 02/11/2025 8:52 AM T [facility] 56- POTASSIUM 5.2(H) 3.5 - 5.1 mmol/L 02/11/2025 8:52 AM EDT [facility] 56- CHLORIDE 102 98 - 107 mmol/L 02/11/2025 8:52 AM EDT [facility] 56- CO2 23 22 - 32 mmol/L 02/11/2025 8:52 AM T [facility] 56- ANION GAP 11 7 - 15 mmol/L 02/11/2025 8:52 AM T [facility] 56- GLUCOSE 134(H) 70 - 120 mg/dL 02/11/2025 8:52 AM T [facility] 56- Albumin 3.0(L) 3.8 - 5.0 g/dL 02/11/2025 8:52 AM EDT [facility] 56- AST 22 10 - 35 U/L 02/11/2025 8:52 AM T [facility] 56- Alkaline Phosphatase 115 35 - 130 U/L 02/11/2025 8:52 AM T [facility] 56- Bilirubin, Total 0.3 <=1.2 mg/dL 02/11/2025 8:52 AM T [facility] 56- CALCIUM 8.5 8.4 - 10.2 mg/dL 02/11/2025 8:52 AM EDT [facility] Protein 6.1 6.0 - 8.3 g/dL 02/11/2025 8:52 AM EDT [facility] 56 ALT 11 10 - 35 U/L 02/11/2025 8:52 AM EDT [facility] 56 Blood Blood sample taken from central line / Unknown Central Line / Unknown 02/11/2025 8:06 AM EDT 02/11/2025 8:11 AM EDT us Logan Plummer MD LAB BLOOD ORDERABLES Final Res ult Performing Organization Address City/[facility]/ZIP Co de Phone Number [facility] 56 [address] [place] [address] * MAGNESIUM (02/11/2025 8:06 AM EDT) [facility] Magnesium 1.7 1.5 - 2.6 mg/dL 02/11/2025 8:52 AM EDT [facility] 56 Blood Blood sample taken from central line / Unknown Central Line / Unknown 02/11/2025 8:06 AM EDT 02/11/2025 8:11 AM EDT us Logan Plummer MD LAB BLOOD ORDERABLES Final Res ult Performing Organization Address [facility] Co de Phone Number [id number] [address] [place] [address] documented in this encounter Visit Diagnoses Diagnosis Encounter for adjustment and management of vascular access device- Primary 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) Diarrhea, unspecified type documented in this encounter Administered Medications Inactive Administered Medications - up to 3 most recent administrations Medication Order MAR Action Action Date Dose Rate Site sodium chloride 0.9 % flush/inj 10 mL 10 mL, IV Push, PRN line flush, Starting on Tue02/11/25 at 0755, Until Tue02/11/25 at 2047, Do not flush if lock, PICC, or central line not in place; IV infusing or unable to flush. For midlines and central lines.Indications:Encounter for adjustment and management of vascular access device,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) Given 02/11/2025 8:02 AM EDT 10 mL sodium chloride 0.9 % flush/inj 20 mL 20 mL, IV Push, PRN IV Flush and Lock, Starting on Tue02/11/25 at 0755, Until Tue02/11/25 at 204, Do not flush if lock, PICC, or [...] of lymph nodes of neck (HCC) Given 02/11/2025 2:41 PM EDT 20 mL Given 02/11/2025 8:04 AM EDT 20 mL documented in this encounter Care Teams Photo Mask Inspector Relationship Specialty Start Date End Date Stephany Gilbert CRNP [address] [place] [address] [place] [address] PCP - General Nurse Practitioner 02/02/23 documented as of this encounter
--- OUTSIDE RECORDS SUMMARY | 2025-02-26 17:08 | External Medical Summary ---
Author Name Unknown Address Unknown Organization K[facility] [address] [place] [address] Laboratory Report Ordering Provider Test Date Status ERIN FLORES 02/11/2025 08:06:54 Final Observation Date Value Abnormality Reference (Units ) Status SYNC LEUKOCYTES IN BLOOD BY AUTOMATED COUNT 02/11/2025 08:06:54 23.76 Above high normal 4.00-10.80 (K/uL) Final Neutrophils/100 leukocytes in Blood by Manual count 02/11/2025 08:06:54 80.0 Above high normal 40.0-75.0 (%) Final Lymphocytes/100 leukocytes in Blood by Manual count 02/11/2025 08:06:54 3.0 Below low normal 18.0-42.0 (%) Final Monocytes/100 leukocytes in Blood by Manual count 02/11/2025 08:06:54 6.0 1.0-11.0 (%) Final Eosinophils/100 leukocytes in Blood by Manual count 02/11/2025 08:06:54 1.0 0.0-6.0 (%) Final Metamyelocytes/100 leukocytes in Blood by Manual count 02/11/2025 08:06:54 8.0 Above high normal <=0.0 (%) Final Myelocytes/100 leukocytes in Blood by Manual count 02/11/2025 08:06:54 2.0 Above high normal <=0.0 (%) Final Neutrophils [#/volume] in Blood by Manual count 02/11/2025 08:06:54 19.01 Above high normal 1.80-7.70 (K/uL) Final Lymphocytes [#/volume] in Blood by Manual count 02/11/2025 08:06:54 0.71 Below low normal 1.00-4.80 (K/uL) Final Monocytes [#/volume] in Blood by Manual count 02/11/2025 08:06:54 1.43 Above high normal 0.00-1.10 (K/uL) Final Eosinophils [#/volume] in Blood by Manual count 02/11/2025 08:06:54 0.24 0.00-0.70 (K/uL) Final Metamyelocytes [#/volume] in Blood by Manual count 02/11/2025 08:06:54 1.90 Above high normal <=0.00 (K/uL) Final Myelocytes [#/volume] in Blood by Manual count 02/11/2025 08:06:54 0.48 Above high normal <=0.00 (K/uL) Final Nucleated erythrocytes/100 leukocytes [Ratio] in Blood by Automated count 02/11/2025 08:06:54 Final Elliptocytes [Presence] in Blood by Light microscopy 02/11/2025 08:06:54 Moderate Abnormal None Seen Final Polychromasia [Presence] in Blood by Light microscopy 02/11/2025 08:06:54 Moderate Abnormal None Seen Final Performing Location [facility]- [address] [place] [address]
--- OUTSIDE RECORDS SUMMARY | 2025-02-26 17:08 | External Medical Summary | Summary of Care ---
Author Name Unknown Organization [facility] Address [address] [facility] [place] [address] Phone [phone] Care Team Providers Care Information Security Systems Instructor Name Role Phone Vladimir Stephany ELLIOTT Primary Care Provider Reason for Visit * Reason Onset Date Comments Encounter Created in Error 02/06/2025 Encounter Details Date Type Department Care Team (Late st Contact Info) Description 02/06/2025 Telephone Hematology/Oncology [facility] [place] [address] [facility] [place] [phone] Logan Plummer MD [address] [facility] [address] Encounter Created in Error Allergies Active Allergy Reactions Criticality Noted Date [...] 02/11/2025 7:45 AM EDT [facility] [address] [facility] [phone] Kaykay, Chair 1 Hem Onc [address] [place] [address] 02/11/2025 12:45 PM EDT Imaging Radiology [address], [place] [address] [place] [address] 02/14/2025 9:30 AM EDT Nurse Only Hematology/Oncology [address] [phone] 02/14/2025 10:00 AM EDT Office Visit Hematology/Oncology [facility] [address] [place] [phone] Logan Plummer MD 200 [facility] [place] [address] 02/19/2025 8:45 AM EDT Hem/Onc Treatment Hematology/Oncology Treatment [place] 200 [facility] [place] [phone] Kaykay, Chair 3 Hem Onc [address] [place] [address] Scheduled Procedures Name Priority Associated Diagnoses Date/Ti [...] D LEVEL ONCE IN A LIFETIME-USE SMARTSET# 33039 Completed 10/25/2008 Pneumococcal Vaccine: 50+ Years Completed [...] this encounter Medical Devices Implanted Type Area Dobie Man Device Identifier Shelf Expiration Date Model / Serial / Lot Power Port 8fr Sngl Lumen Plas - [id number] Implanted:Qty : 1 on 12/05/2024 by Taco Sanchez MD at [facility] Left: Chest CR BARD : PERIPHERAL VASCULAR [id number] 07/14/2025 [id number] / / [id number] documented as of this encounter Care Teams Information Security Systems Instructor Relationship Specialty Start Date End Date Stephany Gilbert CRNP [address] [place] [address] [place] [address] PCP - General Nurse Practitioner 02/02/23 documented as of this encounter
--- OUTSIDE RECORDS SUMMARY | 2025-02-26 17:08 | External Medical Summary ---
Author Name Unknown Address Unknown Organization [facility] [place] [address] Laboratory Report Ordering Provider Test Date Status ERIN FLORES 02/11/2025 08:06:54 Final Observation Date Value Abnormality Reference (Units ) Status WBC, Total 02/11/2025 08:06:54 23.76 Above high normal 4 .00-10.80 (K/uL) Final RBC 02/11/2025 08:06:54 3.08 3.85-5.15 (M/uL) Final Hemoglobin 02/11/2025 08:06:54 8.8 Below low normal 12 .0-15.3 (g/dL) Final HCT 02/11/2025 08:06:54 29.0 Below low normal 36. 0-45.2 (%) Final MCV 02/11/2025 08:06:54 94.2 81.5-97.5 (fL) Final MCH 02/11/2025 08:06:54 28.6 27.0-34.0 (pg) Final MCHC 02/11/2025 08:06:54 30.3 32.0-36.0 (g/dL) Final RDW 02/11/2025 08:06:54 20.5 11.5-15.5 (%) Final Platelets 02/11/2025 08:06:54 290 140-400 (K /uL) Final MPV 02/11/2025 08:06:54 9.3 6.6-11.1 ( fL) Final Performing Location [facility] [place] [address]
--- OUTSIDE RECORDS SUMMARY | 2025-02-26 17:08 | External Medical Summary ---
Author Name Unknown Address Unknown Organization [facility] [address]- [address] [place] [address] Laboratory Report Ordering Provider Test Date Status ERIN FLORES 02/11/2025 08:06:54 Final Observation Date Value Abnormality Reference (Units ) Status BUN 02/11/2025 08:06:54 12 6-20 (mg/dL) Final Creatinine 02/11/2025 08:06:54 0.7 0.5-1.0 (mg/dL) Final Glomerular filtration rate/1.73 sq M.predicted [Volume Rate/Area] in Serum, Plasma or Blood by Creatinine-based formula (CKD-EPI) 02/11/2025 08:06:54 87 >=60 (mL/min) Final eGFR is calculated based on the CKD-EPI 2020 equation. Sodium 02/11/2025 08:06:54 136 135-146 (m mol/L) Final Potassium 02/11/2025 08:06:54 5.2 Above high normal 3. 5-5.1 (mmol/L) Final Cl 02/11/2025 08:06:54 102 98-107 (mm ol/L) Final CO2 02/11/2025 08:06:54 23 22-32 (mmo l/L) Final Anion gap 02/11/2025 08:06:54 11 7-15 (mmol /L) Final Glucose 02/11/2025 08:06:54 134 Above high normal 70 -120 (mg/dL) Final Albumin 02/11/2025 08:06:54 3.0 Below low normal 3.8 -5.0 (g/dL) Final AST (Aspartate aminotransferase) 02/11/2025 08:06:54 22 10-35 (U/L) Fin al Alk Phos 02/11/2025 08:06:54 115 35-130 (U/ L) Final Bilirubin, Total 02/11/2025 08:06:54 0.3 <=1 .2 (mg/dL) Final Calcium 02/11/2025 08:06:54 8.5 8.4-10.2 ( mg/dL) Final Protein 02/11/2025 08:06:54 6.1 6.0-8.3 (g /dL) Final ALT (Alanine aminotransferase) 02/11/2025 08:06:54 11 10-35 (U/L) Hair magdaleno Performing Location [facility] [address] [place] [address]
--- OUTSIDE RECORDS SUMMARY | 2025-02-26 17:08 | External Medical Summary | Summary of Care ---
Author Name Unknown Organization [facility] Address [address] [facility] [place] [address] Phone [phone] Care Team Providers Care Insurance Manager Name Role Phone Stephany Gilbert Primary Care Provider Reason for Visit * Reason Comments Procedure Labs from port IV Therapy Hydration, Potassium IV Encounter Details Date Type Department Care Team (Late st Contact Info) Description 02/06/2025 8:00 AM EDT Nurse Only Hematology/Oncology Treatment, [address] [place] [phone] Kaykay, Chair [address] [facility] [address] [place] [address] Procedure (Labs from port); IV Therapy (Hy... [...] 7:45 AM EDT Hem/Onc Treatment Hematology/Oncology Treatment, [place] [facility] [phone] Kaykay, Chair [address] [place] [address] 02/11/2025 12:45 PM EDT Imaging Radiology [address] [place] [phone] 02/14/2025 9:30 AM EDT [facility] [address] [facility] [phone] 02/14/2025 10:00 AM EDT Office Visit Hematology/Oncology [facility] [place] [address] [facility] [address] [facility] [place] [phone] Logan Plummer MD [address] [facility] [place] [address] 02/19/2025 8:45 AM EDT Hem[facility] [address] [facility] [place] [phone] Kaykay, Chair [address] [place] [address] Scheduled Procedures Name Priority Associated Diagnoses Date/Ti [...] D LEVEL ONCE IN A LIFETIME-USE SMARTSET# [id number] Completed 10/25/2008 Pneumococcal Vaccine: 50+ Years Completed [...] this encounter Medical Devices Implanted Type Area Blood Bank Coordinator Device Identifier Shelf Expiration Date Model / Serial / Lot Power Port 8fr Sngl Lumen Plas - [id number] Implanted:Qty : 1 on 12/05/2024 by Taco Sanchez MD at OR [facility] Left: Chest CR BARD : PERIPHERAL VASCULAR [id number] 07/14/2025 [id number] / / [id number] documented as of this encounter Procedures Procedure [...] Results * MAGNESIUM (02/06/2025 8:12 AM EDT) Magnesium 1.8 1.5 - 2.6 mg/dL 02/06/2025 9:35 AM EDT [facility] 56- Blood Blood sample taken from central line / Unknown Central Line / Unknown 02/06/2025 8:12 AM EDT 02/06/2025 8:20 AM EDT us Logan Plummer MD LAB BLOOD ORDERABLES Final Res ult [facility] [address] [place] [address] * (ABNORMAL) COMPREHENSIVE METABOLIC PANEL (02/06/2025 8:12 AM EDT) BUN 8 6 - 20 mg/dL 02/06/2025 8:47 AM EDT [facility] 56 CREATININE 0.7 0.5 - 1.0 mg/dL 02/06/2025 8:47 AM EDT [facility] 56 EGFR >90 >=60 mL/min 02/06/2025 8:47 AM EDT [facility] 56 Comment:eGFR is calculated b ased on the CKD-EPI 2020 equation. SODIUM 137 135 - 146 mmol/L 02/06/2025 8:47 AM EDT [facility] 56- POTASSIUM 3.1(L) 3.5 - 5.1 mmol/L 02/06/2025 8:47 AM EDT [facility] 56- CHLORIDE 101 98 - 107 mmol/L 02/06/2025 8:47 AM EDT [facility] 56- CO2 23 22 - 32 mmol/L 02/06/2025 8:47 AM EDT [facility] 56- ANION GAP 13 7 - 15 mmol/L 02/06/2025 8:47 AM EDT [facility] 56 GLUCOSE 132(H) 70 - 120 mg/dL 02/06/2025 8:47 AM EDT [facility] 56 Albumin 3.4(L) 3.8 - 5.0 g/dL 02/06/2025 8:47 AM EDT [facility] 56 AST 27 10 - 35 U/L 02/06/2025 8:47 AM EDT [facility] 56 Alkaline Phosphatase 98 35 - 130 U/L 02/06/2025 8:47 AM EDT [facility] 56 Bilirubin, Total 0.4 <=1.2 mg/dL 02/06/2025 8:47 AM EDT [facility] 56 CALCIUM 9.1 8.4 - 10.2 mg/dL 02/06/2025 8:47 AM EDT [facility] 56 Protein 6.4 6.0 - 8.3 g/dL 02/06/2025 8:47 AM EDT [facility] ALT 17 10 - 35 U/L 02/06/2025 8:47 AM EDT [facility] 56 Blood Blood sample taken from central line / Unknown Central Line / Unknown 02/06/2025 8:12 AM EDT 02/06/2025 8:20 AM EDT us Logan Plummer MD LAB BLOOD ORDERABLES Final Res ult [facility] [address] [place] [address] * (ABNORMAL) DIFFERENTIAL, TECHNOLOGIST REVIEW (02/06/2025 7:52 AM EDT) WBC 5.29 4.00 - 10.80 K/uL 02/06/2025 8:44 AM EDT [facility] 56 Neutrophils % 15.0(L) 40.0 - 75.0 % 02/06/2025 8:44 AM EDT [facility] 56 Lymphocytes % 30.0 18.0 - 42.0 % 02/06/2025 8:44 AM EDT [facility] 56 Monocytes % 36.0(H) 1.0 - 11.0 % 02/06/2025 8:44 AM [facility] 56 Eosinophils % 11.0(H) 0.0 - 6.0 % 02/06/2025 8:44 AM [facility] 56 Basophils % 1.0 0.0 - 2.0 % 02/06/2025 8:44 AM [facility] 56 Metamyelocytes % 4.0(H) <=0.0 % 02/07/20 8:44 AM [facility] Myelocytes % 3.0(H) <=0.0 % 02/06/2025 8:44 AM [facility] 56 Absolute Neutrophils 0.79(L) 1.80 - 7.70 K/uL 02/06/2025 8:44 AM [facility] 56 Absolute Lymphocytes 1.59 1.00 - 4.80 K/uL 02/06/2025 8:44 AM [facility] 56 Absolute Monocytes 1.90(H) 0.00 - 1.10 K/uL 02/06/2025 8:44 AM [facility] 56 Absolute Eosinophils 0.58 0.00 - 0.70 K/uL 02/06/2025 8:44 AM [facility] 56 Absolute Basophils 0.05 0.00 - 0.20 K/uL 02/06/2025 8:44 AM [facility] 56 Absolute Metamyelocytes 0.21(H) <=0.00 K/uL 02/06/2025 8:44 AM [facility] 56 Absolute Myelocytes 0.16(H) <=0.00 K/uL 02/06/2025 8:44 AM [facility] 56 nRBCs 1(H) <=0 /100 WBCs 02/06/2025 8:44 AM [facility] 56 Acanthocytes Moderate( A) None Seen 02/06/2025 8:44 AM [facility] 56 Elliptocytes Moderate( A) None Seen 02/06/2025 8:44 AM [facility] 56 Polychromasia Moderate( A) None Seen 02/06/2025 8:44 AM EDT [facility] Reactive Lymphocytes Present(A ) None Seen 02/06/2025 8:44 AM EDT [facility] Blood Venous blood specimen / Unknown Central Line / Unknown 02/06/2025 7:52 AM EDT 02/06/2025 8:20 AM EDT Logan Plummer MD LAB BLOOD ORDERABLES Final Res ult Performing Organization Address City/[facility]/ZIP Co de Phone Number [facility] [address] [place] [address] * DIFFERENTIAL, AUTOMATED (02/06/2025 7:52 AM EDT) Blood Venous blood specimen / Unknown Central Line / Unknown 02/06/2025 7:52 AM EDT 02/06/2025 8:20 AM EDT Logan Plummer MD LAB BLOOD ORDERABLES Final Res ult Performing Organization Address [facility] Co de Phone Number [facility] [address] [place] [address] * (ABNORMAL) CBC (02/06/2025 7:52 AM EDT) WBC 5.29 4.00 - 10.80 K/uL 02/06/2025 8:44 AM EDT [facility] RBC 3.10 3.85 - 5.15 M/uL 02/06/2025 8:44 AM EDT [facility] HGB 8.7(L) 12.0 - 15.3 g/dL 02/06/2025 8:44 AM EDT [facility] HCT 29.0(L) 36.0 - 45.2 % 02/06/2025 8:44 AM EDT [facility] MCV 93.5 81.5 - 97.5 fL 02/06/2025 8:44 AM EDT [facility] MCH 28.1 27.0 - 34.0 pg 02/06/2025 8:44 AM EDT [facility] MCHC 30.0 32.0 - 36.0 g/dL 02/06/2025 8:44 AM EDT [facility] 56 RDW 20.7 11.5 - 15.5 % 02/06/2025 8:44 AM EDT [facility] 56 PLT 325 140 - 400 K/uL 02/06/2025 8:44 AM EDT [facility] 56 MPV 9.6 6.6 - 11.1 fL 02/06/2025 8:44 AM EDT [facility] 56 Blood Venous blood specimen / Unknown Central Line / Unknown 02/06/2025 7:52 AM EDT 02/06/2025 8:20 AM EDT us Logan Plummer MD LAB BLOOD ORDERABLES Final Res ult [facility] [address] [place] [address] documented in this encounter Visit Diagnoses Diagnosis [...] on Tue02/06/25 at 0819, Until Tue02/06/25 at 192, Do not flush if lock, PICC, or [...] on Tue02/06/25 at 0945, Until Tue02/06/25 at 192, Do not flush if lock, PICC, or [...] mL documented in this encounter Care Teams Insurance Manager Relationship Specialty Start Date End Date Stephany Gilbert CRNP [address] [place], [place] [address] [place] [address] PCP - General Nurse Practitioner 02/02/23 documented as of this encounter
--- OUTSIDE RECORDS SUMMARY | 2025-02-26 17:08 | External Medical Summary | Summary of Care ---
Author Name Unknown Organization [facility] Address [address] [facility] [place] [address] Phone [phone] Care Team Providers Care Multimedia Coordinator Name Role Phone Stpehany Gilbert Primary Care Provider Reason for Visit * Reason Comments Follow Up Encounter Details Date Type Department Care Team (Late st Contact Info) Description 02/14/2025 10:00 AM EDT Office Visit Hematology/Oncology [facility] [place] [address] [facility] [place] [phone] Logan Plummer MD [facility] [address] Diffuse large B-cell lymphoma of lymph nodes [...] Sign Reading Time Taken Comments Blood Pressure 97/62 02/14/2025 9:59 AM EDT Pulse 98 02/14/2025 9:59 AM EDT Temperature 37.9 °C (100.3 °F) 02/14/2025 9:59 AM E DT Respiratory Rate - - Oxygen Saturation 89% 02/14/2025 9:59 AM EDT Inhaled Oxygen Concentration - - Weight 58.4 kg (128 lb 12.8 oz) 02/14/2025 9:59 AM EDT Height - - Body Mass Index 21.43 12/05/2024 1:31 PM EST documented in this encounter Progress Notes * Logan Plummer MD - 02/14/2025 10:00 AM EDT Hematology/Oncology Outpatient Clinic note [facility] [address] [facility] [place] [address] NAME: Theresa Pascual :1950 74-year-old female, DIAGNOSIS: -Diffuse large B-cell lymphoma with CD30 positivity involving the cervical lymph node, mediastinum,abdominal lymph node. No organ involvement. No bone marrow involvement ( November 2024 ) -BCL2 rearrangement detected but negative for MYC and BCL-6 rearrangement. Severe anemia requiring blood transfusion, received IV iron therapy in the last 6 months or so. -she has underlying CREST syndrome, she was seen by GI, had endoscopic evaluation. She has underlying interstitial lung disease, she is on CellCept which was recently restarted but then when she was started on chemotherapy, it was stopped. Iron deficiency related to GI blood loss treated with Venofer weekly x4 between 12/04/2024 -12/31/2024.. CURRENT TREATMENT: - brentuximab, Cytoxan, rituximab, prednisone therapy. ( 12/18/2024) 02/19/2025 --> she will be receiving 4th cycle of chemotherapy. -Adriamycin was not given because she had received previously for the lymphoma diagnosis in the past. DIAGNOSTIC WORKUP: With history of underlying CREST syndrome and GAVE which resulted into significant iron deficiency,hospitalization, blood and intravenous iron treatment since July 2024, she had CT scan of the abdomen and pelvis on 09/21/2024 which showed enlarged mesenteric retroperitoneal lymph nodes. PET-CT scan done on 10/17/2024: -left supraclavicular lymph node measuring 3.9 x 2.1 cm SUV of 10.8 with displaces the thyroid and trachea to the right side -superior mediastinal/paratracheal and prevascular lymph node, largest lymph node measuring 3.3 x 2.1 cm with SUV of 14.8 -right mid- and lower mesenteric lymphadenopathy with a dominant right paracentral mesenteric mass measuring 2.9 x 2.5 cm, SUV 9.9 -retroperitoneal portal caval lymphadenopathy with dominant left supra renal para-aortic lymph nodemeasuring 2.7 x 2.4 cm -1.1 cm right retrocrural lymph node. -no abnormal activity in the bone/bone marrow. No hepatomegaly no splenomegaly. Suprarenal para-aortic lymph node FNA --> aggressive pleomorphic/large cell lymphoma, positive for CD30. ( 10/18/2024). Biopsy from the left cervical lymph node ( excisional biopsy) -diffuse large B-cell lymphoma, CD30 expression. -Ki-67 is over 90% in the neoplastic cells. -GERALD- MIA negative. -BCL2 rearrangement detected but negative for MYC and BCL-6 rearrangement. Bone marrow examination done on 11/19/2024 --> hypercellular bone marrow, trilineage hematopoiesis, no evidence of lymphoma involvement. OTHER IMPORTANT HISTORY: - Significant Raynaud's phenomena. Some tingling and numbness of the extremities -systemic sclerosis -atherosclerosis of the right carotid artery resulting in occlusion History of right breast cancer in 1987, she was 38-year-old at that time, as per the previous notes, 18 lymph node positive, she had chemotherapy, radiation treatment and tamoxifen for 5 years, she was treated by Dr. Rashid at that time. Osteopenia -iron deficiency -GERD -interested lung disease -pulmonary lung nodules. -GAVE History of diffuse large B-cell lymphoma, in 2013 she was treated with 6 cycles of EPOCH-R and thenshe remained in remission INTERVAL HISTORY: She has come the clinic for the follow-up, accompanied by her in the office. Now started her on systemic chemotherapy with brentuximab, Cytoxan, Rituximab, prednisone on 12/18/2024. Received 3 cycles of chemotherapy so far. Overall she is doing well, some tiredness present, no bleeding, no abdominal pain, no increasing nausea, no vomiting, good appetite but weight is stable around 128 lb. No new GI symptoms, She also has underlying CREST syndrome She had received IV iron x4, last infusion was on 12/31/2024. Past Medical History: Diagnosis Date Malignant neoplasm of other specified sites of female breast 1987 Osteoporosis Other specified iron deficiency anemias Past Surgical History: Procedure Laterality Date COLONOSCOPY, DIAGNOSTIC (RECTUM) 03/17/2015 normal, repeat 10 yrs COLONOSCOPY, DIAGNOSTIC (RECTUM) 11/09/2023 diverticulosis in sigmoid, internal hemorrhoids / no specimens collected / COLONOSCOPY FLEXIBLE PROXIMAL DIAGNOSTIC performed by Kael Garcia MD at ENDOSCOPY [facility] EGD, FLEXIBLE, DIAGNOSTIC 11/09/2023 LA grade B reflux esopahagitis , gastritis / biopsies mild to moderate inflammation / ESOPHAGOGASTRODUODENOSCOPY (EGD), FLEXIBLE, TRANSORAL, DIAGNOSTIC performed by Kael Garcia MD at ENDOSCOPY [facility] EGD, FLEXIBLE, DIAGNOSTIC 01/12/2024 antral gastritis/ESOPHAGOGASTRODUODENOSCOPY (EGD), FLEXIBLE, TRANSORAL, DIAGNOSTIC performed by Suzette Lopez MD at ENDOSCOPY [facility] INSER TUNN ACC DEV;5 YRS/OLDER Left 12/05/2024 INSERT TUNNELED CENTRAL VENOUS ACCESS WITH SUBQ PORT performed by Taco Sanchez MD at OR [facility] IR BIOPSY 10/18/2024 IR BIOPSY 11/19/2024 MASTECTOMY,RADICAL 11/14/1987 Current Outpatient Medications Medication Sig Dispense Refill CALTRATE 600 + D 600-125 MG-IU PO TABS Take by mouth daily first thing in the morning. 0 VITAMIN C 500 MG PO TABS 1 TABLET 3 times DAILY 0 MULTIVITAMINS PO TABS 1 tab by mouth daily 0 TYLENOL EXTRA STRENGTH 500 MG PO TABS 3 tabs by mouth in am prn 0 LCD 10% IN AQUAPHOR EX Apply to affected area once daily 60GM 3 ProAir HFA 108 (90 Base) MCG/ACT Inhalation Aerosol Solution Inhale by mouth 2 Puffs every 4 hours as needed for Congestion, Cough or Wheezing. (Patient not taking: Reported on 12/05/2024) 18 g 0 Valsartan 80 MG Oral Tablet (Diovan) Take 1 Tablet by mouth in the morning. Rosuvastatin Calcium 10 MG Oral Tablet (Crestor) Take 1 Tablet by mouth at bedtime. Desoximetasone 0.25 % External Ointment Apply topically to affected area at bedtime. Apply to hands Vitamin D-[address] 25 MCG (1000 UT) Oral Tablet (Cholecalciferol) Take 1 Tablet by mouth in the morning. Vitamin B-12 1000 MCG Sublingual Tablet Sublingual Place 1 Tablet under the tongue once a week. Tuesday Iron 325 (65 Fe) MG Oral Tablet Take by mouth every other day. Tue-tue-Tue (Patient not taking: Reported on 12/05/2024) Floranex Oral Packet Take by mouth 2 times a day. Omeprazole 40 MG Oral Capsule Delayed Release (PriLOSEC) Take 1 Capsule by mouth in the morning. 90Capsule 3 Levothyroxine Sodium 25 MCG Oral Tablet (Levoxyl) Take 1 Tablet by mouth daily first thing in the morning. (at least 30 min prior to breakfast or other meds) Fish Oil 1000 MG Oral Capsule 1 Capsule. Ondansetron HCl 8 MG Oral Tablet (Zofran) Take 1 Tablet by mouth every 8 hours as needed for Nausea. 30 Tablet 3 Prochlorperazine Maleate 10 MG Oral Tablet (Compazine) Take 1 Tablet by mouth every 6 hours as needed for Nausea. 30 Tablet 3 Lidocaine-Prilocaine 2.5-2.5 % External Cream (Emla) APPLY TO SKIN OVER MEDIPORT & COVER 1HR PRIOR TO ACCESSING. 30 g 1 predniSONE 50 MG Oral Tablet (Deltasone) Take 100mg (2 tablets) once a day on days 1-5 of each cycle 10 Tablet 5 Acyclovir 400 MG Oral Tablet (Zovirax) Take 1 Tablet by mouth in the morning and 1 Tablet before bedtime. 180 Tablet 3 Potassium Chloride ER 10 MEQ Oral Tablet Extended Release Take 2 Tablets by mouth in the morning. 60 Tablet 1 No current facility-administered medications for this visit. Family History Problem Relation Name Age of Onset Cancer Sister Honey breast Hypertension Brother Social History Socioeconomic History Marital status: Spouse name: Not on file Number of children: 0 Years of education: Not on file Highest education level: Not on file Occupational History Employer: [employer] [address] Tobacco Use Smoking status: Never Smokeless tobacco: Never Tobacco comments: quit 1986 Substance and Sexual Activity Alcohol use: No Drug use: Never Sexual activity: Not on file Other Topics Concern Not on file Social History Narrative Not on file Social Needs Financial Resource Strain: Not on file Food Insecurity: Not on file Transportation Needs: Not on file Social Connections: Not on file Housing Stability: Not on file On exam: BP 97/62 (BP Site: Left Arm, BP Position: Sitting, BP Cuff Size: Regular) | Pulse 98 | Temp 37.9 °C (100.3 °F) (Tympanic) | Wt 58.4 kg (128 lb 12.8 oz) | SpO2 89% | BMI 21.43 kg/m² | BSA 1.64 m² Constitutional: Patient is alert, cooperative and oriented x 3. Thin built female, Patient is in noacute distress. HEENT: No icterus, pallor, Throat and pharynx normal. Sinuses are non-tender. Neck: Supple and without lymphadenopathy or masses. No JVD. No Palpable supraclavicular lymph nodes. Lungs: Clear to auscultation. Bilateral symmetric air entry. No wheezing or rhonchi. Cardiovascular: Normal heart sounds, no murmurs.Regular rate and rhythm. Abdomen: Soft, nontender, no hepatomegaly, no splenomegaly. Bowel sounds are normal. Neurological: No gross focal neurological deficit; walks with a normal gait. Extremities: No finger clubbing, No cyanosis. No leg edema. Skin:: No skin rash. SPINE: No spinal or paraspinal tenderness. LABS: Blood workup done on 11/29/2023: -BUN/Creat: 12/0.7, Calcium 9.2 -AST 76, ALT 53, alkaline phosphatase 76, bilirubin level 0.4 -WBC 66819, Hemoglobin and hematocrit - 5.8/20, MCV 89.3, Platelet count of 339175, ANC 11,000, absolute monocyte count 2100. Immature WBCs in the form of myelocytes and metamyelocytes noted. - Uric acid --> 2.1, LDH --> 253 ( 11/09/2024). Anemia workup done on 10/25/2024: -Serum iron 19, TIBC 207, iron saturation 9% -Ferritin--> 1867 -folic acid --> > 20 -Vitamin B12--> 1128. - Absolute reticulocyte count --> 66,000 (10/04/2024). Blood workup done on 12/18/2024: -WBC 11555, Hemoglobin and hematocrit - 7.9/25.7, Platelet count of 622528 -BUN/Creat: 8/0.7 -AST 233, ALT 95, alkaline phosphatase 123, bilirubin 0.4 -Uric acid --> 2.2, LDH 525 - Blood workup done on 01/08/2025: -WBC 15335, Hemoglobin and hematocrit - 8.6/29, MCV 93, Platelet count of 672345 -ANC 8200. -WBC 19624, Hemoglobin and hematocrit -8.9/28.4, MCV 94, Platelet count of 279,000 (02/14/2025). -LV ejection fraction --> 50% ( 10/05/2024). IMAGING: CT scan of the abdomen and pelvis on 12/16/2024: -extensive mesentery, upper abdominal retroperitoneal lymphadenopathy - Proximal and mid small bowel obstruction with multiple foci of mucosal studding typical of tumor involvement obstruction is partial or early with transition point likely in the left pelvis. -trace pleural effusion -fatty liver and splenomegaly. Spleen is about [address] chest with PE protocol on 12/13/2024 showed no evidence of pulmonary embolism. [id number] bilateral pleural effusion, extensive lymphadenopathy in the mediastinum, subpectoral, supraclavicular region. PET-CT scan on 02/11/2025 after 3 cycles of chemotherapy: -overall decreased in the size and activity of the cervical, thoracic and abdominal lymphadenopathy. Deauville 2. ASSESSMENT AND PLAN: 74-year-old female, who had a history of diffuse large B-cell lymphoma for which he was treated with EPOCH-R x6 in 2013 and she remained under remission She has underlying systemic sclerosis, CREST syndrome, GI bleed related GAVE, significant Raynaud'sphenomena, some mild tingling and numbness of the extremities. She has significant anemia requiring periodic blood transfusion support in the last few months, also received IV iron in the form of Venofer and Monoferric in the past. Bone marrow examination did not show any lymphoma involvement. Now she has diffuse large B-cell lymphoma with CD30 positivity involving the multiple lymph nodes in the neck, chest, abdomen, no organ involvement, no bone or bone marrow involvement. Now started on systemic chemotherapy with brentuximab, Cytoxan, Rituximab, prednisone, Adriamycin was not given because of previous Adriamycin treatment for the lymphoma diagnosis in 2013. Chemotherapy started on 12/18/2024, overall she has done well. Tolerated well. She did receive prophylactic Pegfilgrastim. So far she has received 3 cycles of chemotherapy She had follow-up PET-CT scan after 3 cycles which shows very good response. I reviewed her blood workup, persistent mild anemia, no new bleeding complications. Earlier she received IV iron therapy She is scheduled for for cycle of chemotherapy next week and will continue the planned She is at high-risk for febrile neutropenia, she will receive prophylactic Pegfilgrastim. Will see her before the next cycle. Planning for total [address] Logan Plummer Hem/Onc (This note was completed using the dictation program Fluency Direct. As such, there may be misspellings word substitutions, or other variations that should not change the essence of the clinical content of this encounter note. If there is need for further clarification, please direct questions to the provider listed above.) documented in this encounter Nursing Notes * Edith William MED ASSIST - 02/14/2025 10:01 AM EDT Patient identifed by name and birthdate Do you have any concerns about pain management for today's visit? Yes. Patient instructed to discuss pain concerns with provider during the visit today Living Will or Advance Directive for Health Care as noted on the problem list. [facility] is a way you can talk to your provider on line through e-mail. Would you like to sign up? I can activate it for you? NO Filed Vitals: 02/14/25 0959 BP: 97/62 Pulse: 98 Temp: 37.9 °C (100.3 °F) TempSrc: Tympanic SpO2: 89% Weight: 58.4 kg (128 lb 12.8 oz) Patient was instructed to not get up on the exam table/exam chair until directed and assisted by their provider; patient is to remain seated in the chair/ wheelchair/ exam table/ exam chair for fall prevention and safety reasons. Patient is aware to have assistance to step down off exam table/exam chair with personnel. Patient voiced full comprehension of instructions. documented in this encounter Plan of Treatment Upcoming Encounters Date Type Department Care Team (Late st Contact Info) Description 02/19/2025 8:45 AM EDT Hem/Onc Treatment Hematology/Oncology Treatment, [address] [phone] Kaykay, Chair 3 Hem Onc [address] [address] Scheduled Procedures Name Priority Associated Diagnoses Date/Ti [...] D LEVEL ONCE IN A LIFETIME-USE SMARTSET# 75154 Completed 10/25/2008 Pneumococcal Vaccine: 50+ Years Completed [...] this encounter Medical Devices Implanted Type Area Bread And Pastry Baker Device Identifier Shelf Expiration Date Model / Serial / Lot Power Port 8fr Sngl Lumen Plas - [id number] Implanted:Qty : 1 on 12/05/2024 by Taco Sanchez MD at OR [facility] Left: Chest CR BARD : PERIPHERAL VASCULAR [id number] 07/14/2025 [id number] / / [id number] documented as of this encounter Visit Diagnoses Diagnosis 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)- Primary documented in this encounter Care Teams Multimedia Coordinator Relationship Specialty Start Date End Date Stephany Gilbert CRNP [address] [place] [address] [place] [id number] PCP - General Nurse Practitioner 02/02/23 documented as of this encounter"
--- OUTSIDE RECORDS SUMMARY | 2025-02-26 17:08 | External Medical Summary | Summary of Care ---
Author Name Unknown Organization [facility] Address [address] [facility] [place] [address] Phone [phone] Care Team Providers Care Coil Placer Name Role Phone Stephany Gilbert Primary Care Provider Encounter Details Date Type Department Care Team (Late st Contact Info) Description 02/06/2025 Orders Only Hematology/Oncology [facility] [place] [address] [facility] [place] [phone] Logan Plummer MD [address] [facility] [place] [address] 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)*; Diarrhea, unspecified type Allergies Active Allergy Reactions [...] Team (Late st Contact Info) Description 02/11/2025 12:45 PM EDT Imaging Radiology [place] [address] [address] [place] [phone] 02/13/2025 7:45 AM EDT Hem/Onc Treatment Hematology/[address], [address] [phone] Kaykay, Chair 1 Hem Onc [address] [place] [address] 02/14/2025 9:30 AM EDT Nurse Only Hematology/Oncology [address] [phone] 02/14/2025 10:00 AM EDT Office Visit Hematology/Oncology [facility] [address] [place] [phone] Logan Plummer MD [address] [place], [place] [address] [address] 02/19/2025 8:45 AM EDT Hem/Onc Treatment Hematology/Oncology [address], [address] [phone] Kaykay, Chair 3 Hem Onc [address] [place] [address] Scheduled Orders Name Type Priority Associated Diagnoses Orde r Schedule MAGNESIUM Lab STAT Diarrhea, unspecified type 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) Every Week for 20 Occurrences starting 02/06/2025 until 02/06/2026 COMPREHENSIVE METABOLIC PANEL Lab STAT Diarrhea, unspecified type 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) Every Week for 20 Occurrences starting 02/06/2025 until 02/06/2026 CBC WITH WBC DIFFERENTIAL Lab STAT Diarrhea, unspecified type 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) Every Week for 20 Occurrences starting 02/06/2025 until 02/06/2026 Scheduled Procedures Name Priority Associated Diagnoses Date/Ti [...] D LEVEL ONCE IN A LIFETIME-USE SMARTSET# 96020 Completed 10/25/2008 Pneumococcal Vaccine: 50+ Years Completed [...] this encounter Medical Devices Implanted Type Area Exercise Rider Device Identifier Shelf Expiration Date Model / Serial / Lot Power Port 8fr Sngl Lumen Plas - [id number] Implanted:Qty : 1 on 12/05/2024 by Taco Sanchez MD at OR [facility] Left: Chest CR BARD : PERIPHERAL VASCULAR [id number] 07/14/2025 [id number] / / [id number] documented as of this encounter Visit Diagnoses Diagnosis 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)- Primary Diarrhea, unspecified type documented in this encounter Care Teams Coil Placer Relationship Specialty Start Date End Date Stephany Gilbert CRNP [address] [place] [address] [place] [address] PCP - General Nurse Practitioner 02/02/23 documented as of this encounter
--- OUTSIDE RECORDS SUMMARY | 2025-02-26 17:08 | External Medical Summary | Summary of Care ---
Author Name Unknown Organization [facility] Address [address] [facility] [place] [address] Phone [phone] Care Team Providers Care Dictaphone Typist Name Role Phone Stephany Gilbert Primary Care Provider Reason for Visit * Reason Onset Date Comments Test Results Lab 02/06/2025 Encounter Details Date Type Department Care Team (Late st Contact Info) Description 02/06/2025 Telephone Hematology/Oncology [facility] [place] 200 [facility] [place] [phone] Logan [facility] [address] Test Results Lab Allergies Active Allergy Reactions [...] Telephone Encounter - Logan Plummer MD - 02/06/2025 9:48 AM EDT Ordered IV hydration, IV potassium 20 mEq and oral potassium supplementation. * Telephone Encounter - Saul Ramos, RN - 02/06/2025 9:08 AM EDT K 3.1 Dr. Plummer aware- would like to give 20meq via port today and start oral potassium 20meq. Dr. Plummer- please place order for 20meq K today. Pt would also like hydration, please add 1L NSS over 2 hours today as well. Script for oral potassium sent to [facility] per patient request. Added on magnesium. documented in this encounter Plan of Treatment Upcoming Encounters Date Type Department Care Team (Late st Contact Info) Description 02/11/2025 7:45 AM EDT Hem/Onc Treatment Hematology/Oncology [address] [phone] Kaykay, Chair 1 Hem Onc [address] [place] [address] 02/11/2025 12:45 PM EDT Imaging Radiology [address], [address] [place] [phone] 02/14/2025 9:30 AM EDT Nurse Only Hematology/Oncology Treatment [address] [place] [phone] 02/14/2025 10:00 AM EDT Office Visit Hematology/Oncology [facility] [address] [place] [phone] Logan Plummer MD [address] [place] [address] [place] [address] 02/19/2025 8:45 AM EDT Hem/Onc Treatment Hematology/Oncology Treatment, [address] [place] [address] Kaykay, Chair 3 Hem Onc Scene 200 [facility], [place] [phone] Scheduled Procedures Name Priority Associated Diagnoses Date/Ti [...] D LEVEL ONCE IN A LIFETIME-USE SMARTSET# 27361 Completed 10/25/2008 Pneumococcal Vaccine: 50+ Years Completed [...] this encounter Medical Devices Implanted Type Area Aircraft De Icer Installer Device Identifier Shelf Expiration Date Model / Serial / Lot Power Port 8fr Sngl Lumen Plas - [id number] Implanted:Qty : 1 on 12/05/2024 by Taco Sanchez MD at OR [facility] Left: Chest CR BARD : PERIPHERAL VASCULAR [id number] 07/14/2025 [id number] / / [id number] documented as of this encounter Results * MAGNESIUM (02/06/2025 8:12 AM EDT) Magnesium 1.8 1.5 - 2.6 mg/dL 02/06/2025 9:35 AM EDT [facility] 56[facility]02 Blood Blood sample taken from central line / Unknown Central Line / Unknown 02/06/2025 8:12 AM EDT 02/06/2025 8:20 AM EDT us Logan Plummer MD LAB BLOOD ORDERABLES Final Res ult [facility] 56-[address] [place] [address] documented in this encounter Visit Diagnoses Diagnosis 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)- Primary Diarrhea documented in this encounter Care Teams Dictaphone Typist Relationship Specialty Start Date End Date Stephany Gilbert CRNP [address] [place] [address] [place] [phone] PCP - General Nurse Practitioner 02/02/23 documented as of this encounter
--- OUTSIDE RECORDS SUMMARY | 2025-02-26 17:08 | External Medical Summary ---
Author Name Unknown Address Unknown Organization K09:[facility] [address] [place] [address] Laboratory Report Ordering Provider Test Date Status ERIN FLORES 02/14/2025 09:53:28 Final Observation Date Value Abnormality Reference (Units ) Status SYNC LEUKOCYTES IN BLOOD BY AUTOMATED COUNT 02/14/2025 09:53:28 14.30 Above high normal 4.00-10.80 (K/uL) Final Neutrophils/100 leukocytes in Blood by Manual count 02/14/2025 09:53:28 73.0 40.0-75.0 (%) Final Lymphocytes/100 leukocytes in Blood by Manual count 02/14/2025 09:53:28 9.0 Below low normal 18.0-42.0 (%) Final Monocytes/100 leukocytes in Blood by Manual count 02/14/2025 09:53:28 13.0 Above high normal 1.0-11.0 (%) Final Eosinophils/100 leukocytes in Blood by Manual count 02/14/2025 09:53:28 1.0 0.0-6.0 (%) Final Metamyelocytes/100 leukocytes in Blood by Manual count 02/14/2025 09:53:28 4.0 Above high normal <=0.0 (%) Final Neutrophils [#/volume] in Blood by Manual count 02/14/2025 09:53:28 10.44 Above high normal 1.80-7.70 (K/uL) Final Lymphocytes [#/volume] in Blood by Manual count 02/14/2025 09:53:28 1.29 1.00-4.80 (K/uL) Final Monocytes [#/volume] in Blood by Manual count 02/14/2025 09:53:28 1.86 Above high normal 0.00-1.10 (K/uL) Final Eosinophils [#/volume] in Blood by Manual count 02/14/2025 09:53:28 0.14 0.00-0.70 (K/uL) Final Metamyelocytes [#/volume] in Blood by Manual count 02/14/2025 09:53:28 0.57 Above high normal <=0.00 (K/uL) Final Nucleated erythrocytes/100 leukocytes [Ratio] in Blood by Automated count 02/14/2025 09:53:28 Final Variant lymphocytes [Presence] in Blood by Light microscopy 02/14/2025 09:53:28 Present Abnormal None Seen Final Performing Location [facility] [address] [place] [address]
--- OUTSIDE RECORDS SUMMARY | 2025-02-26 17:08 | External Medical Summary ---
Author Name Unknown Address Unknown Organization K09:[facility] [address] [address] Laboratory Report Ordering Provider Test Date Status ERIN FLORES 02/14/2025 09:53:28 Final Observation Date Value Abnormality Reference (Units ) Status WBC, Total 02/14/2025 09:53:28 14.30 Above high normal 4 .00-10.80 (K/uL) Final RBC 02/14/2025 09:53:28 3.00 3.85-5.15 (M/uL) Final Hemoglobin 02/14/2025 09:53:28 8.9 Below low normal 12 .0-15.3 (g/dL) Final HCT 02/14/2025 09:53:28 28.4 Below low normal 36. 0-45.2 (%) Final MCV 02/14/2025 09:53:28 94.7 81.5-97.5 (fL) Final MCH 02/14/2025 09:53:28 29.7 27.0-34.0 (pg) Final MCHC 02/14/2025 09:53:28 31.3 32.0-36.0 (g/dL) Final RDW 02/14/2025 09:53:28 20.1 11.5-15.5 (%) Final Platelets 02/14/2025 09:53:28 279 140-400 (K /uL) Final MPV 02/14/2025 09:53:28 9.3 6.6-11.1 ( fL) Final Performing Location [facility] [place] [address]
--- OUTSIDE RECORDS SUMMARY | 2025-02-26 17:08 | External Medical Summary | Summary of Care ---
Author Name Unknown Organization [facility] Address [address] [facility] [place] [address] Phone [phone] Care Team Providers Care Bottling Supervisor Name Role Phone Stephany Gilbert Primary Care Provider Reason for Visit * Reason Onset Date Comments Medication Refill 02/06/2025 Encounter Details Date Type Department Care Team (Late st Contact Info) Description 02/06/2025 Refill Hematology/Oncology [facility] [place] [address] [facility] [place] [phone] Mark Plummer MD [address] [facility] [place] [address] Diarrhea, unspecified type*; Hypokalemia Allergies Active Allergy Reactions Criticality Noted [...] to affected area once daily 60GM 3 03/13/200 9 Active ProAir HFA 108 (90 Base) [...] Telephone Encounter - Nadiya Granados RN - 02/06/2025 10:14 AM EDTSigned Prescriptions: Disp Refills Potassium Chloride ER 10 MEQ Oral Tablet E*60 Tab*1 Sig: Take 2 Tablets by mouth in the morning.Authorizing Provider: MARK PLUMMER * Telephone Encounter - Mark Plummer MD - 02/06/2025 9:36 AM EDT E-prescribed oral potassium supplementation. * Telephone Encounter - Saul Ramos RN - 02/06/2025 9:15 AM EDT Pended oral potasssium- pt aware. documented in this encounter Plan of Treatment Upcoming Encounters Date Type Department Care Team (Late st Contact Info) Description 02/11/2025 7:45 AM EDT Hem/Onc Treatment Hematology[address] [phone] Kaykay, Chair 1 Hem Onc [address] [address] 02/11/2025 12:45 PM EDT Imaging Radiology [address], [place] [address] [place] [phone] 02/14/2025 9:30 AM EDT Nurse Only Hematology/[address] [phone] 02/14/2025 10:00 AM EDT Office Visit Hematology/Oncology [facility] [address] [facility] [place] [phone] Mark Plummer MD [address] [facility] [place] [address] 02/19/2025 8:45 AM EDT Hem/Onc Treatment [facility]ology[facility]cology [facility], [place] [facility] [phone] Kaykay, Chair 3 Hem Onc [facility] [address] [facility] [place] [address] Scheduled Procedures Name Priority Associated Diagnoses Date/Ti [...] D LEVEL ONCE IN A LIFETIME-USE SMARTSET# 52761 Completed 10/25/2008 Pneumococcal Vaccine: 50+ Years Completed [...] this encounter Medical Devices Implanted Type Area Front End Technician Device Identifier Shelf Expiration Date Model / Serial / Lot Power Port 8fr Sngl Lumen Plas - [id number] Implanted:Qty : 1 on 12/05/2024 by Taco Sanchez MD at [facility] Left: Chest CR BARD : PERIPHERAL VASCULAR [id number] 07/14/2025 [id number] / / [id number] documented as of this encounter Visit Diagnoses Diagnosis Diarrhea, unspecified type- Primary Hypokalemia Hypopotassemia documented in this encounter Care Teams Bottling Supervisor Relationship Specialty Start Date End Date Stephany Gilbert CRNP [address] [place], [place] [address] [place] [address] PCP - General Nurse Practitioner 02/02/23 documented as of this encounter
--- OUTSIDE RECORDS SUMMARY | 2025-02-26 17:08 | External Medical Summary ---
Author Name Unknown Address Unknown Organization [facility]09[facility] [place] [address] Laboratory Report Ordering Provider Test Date Status ERIN FLORES 02/06/2025 08:12:31 Final Observation Date Value Abnormality Reference (Units ) Status Magnesium 02/06/2025 08:12:31 1.8 1.5-2.6 (m g/dL) Final Performing Location [facility] [place] [address]
--- OUTSIDE RECORDS SUMMARY | 2025-02-26 17:08 | External Medical Summary | Summary of Care ---
Author Name Unknown Organization [facility] Address [address] [place] [address] Phone [phone] Care Team Providers Care Sand Hauler Name Role Phone Stephany Gilbert Jocelyn ELLIOTT Primary Care Provider Reason for Visit * Reason Onset Date Comments Appointment 02/15/2025 Dr. Plummer Encounter Details Date Type Department Care Team (Late st Contact Info) Description 02/15/2025 Telephone Hematology/Oncology [facility] [place] [address] [place] [phone] Services, Scheduling [address] [place] [address] Appointment (Dr. Plummer) Allergies Active Allergy Reactions Criticality Noted Date Comments Nickel Rash 03/11/2015 documented as of this encounter (statuses as of 02/15/2025) Medications CALTRATE 600 + D 600-125 MG-IU [...] as of this encounter (statuses as of 02/15/2025) Active Problems Problem Noted Date Diagnosed Date [...] as of this encounter (statuses as of 02/15/2025) Resolved Problems Problem Noted Date Diagnosed Date Resolved Date Other iron deficiency anemia 12/19/2008 Overview (08/15/2017): Resolved per Duplicate Protocol #2. ICD-10 update of inactive term documented as of this encounter (statuses as of 02/15/2025) Social History Tobacco Use Types Packs/Day Years [...] Telephone Encounter - Saul Ramos RN - 02/15/2025 9:18 AM EDT This is already scheduled in the same appointment. Called patient and made her aware of lab draw prior to treatment on 02/19. * Telephone Encounter - Sandy Reid OSA - 02/15/2025 9:08 AM EDT We received a call from Theresa. She is asking to schedule a part flush/ lab draw prior to her treatment on 02/19. She normally has that done same day prior to treatment. I did check the schedule and there was not an available PF/ lab draw appointment that coincides with the treatment at 8:45am. Please assist with placing Theresa on the schedule that day for her lab draw. She can be reached at [phone]. Thank you! documented in this encounter Plan of Treatment Upcoming Encounters Date Type Department Care Team (Late st Contact Info) Description 02/19/2025 8:45 AM EDT Hem/Onc Treatment Hematology/Oncology Treatment, [address] [phone] Kaykay, Chair 3 Hem Onc [address] [address] Scheduled Procedures Name Priority Associated Diagnoses Date/Ti [...] D LEVEL ONCE IN A LIFETIME-USE SMARTSET# 58155 Completed 10/25/2008 Pneumococcal Vaccine: 50+ Years Completed [...] this encounter Medical Devices Implanted Type Area Yardage Control Clerk Device Identifier Shelf Expiration Date Model / Serial / Lot Power Port 8fr Sngl Lumen Plas - [id number] Implanted:Qty : 1 on 12/05/2024 by Taco Sanchez MD at [facility] Left: Chest CR BARD : PERIPHERAL VASCULAR [id number] 07/14/2025 [id number] / / [id number] documented as of this encounter Care Teams Sand Hauler Relationship Specialty Start Date End Date Stephany Gilbert CRNP [address] [place] [address] [place] [address] PCP - General Nurse Practitioner 02/02/23 documented as of this encounter
--- OUTSIDE RECORDS SUMMARY | 2025-02-26 17:09 | External Medical Summary ---
Author Name Unknown Address Unknown Organization K09:[facility] [address] [place] [address] Laboratory Report Ordering Provider Test Date Status ERIN FLORES 01/29/2025 07:36:57 Final Observation Date Value Abnormality Reference (Units ) Status BUN 01/29/2025 07:36:57 10 6-20 (mg/dL) Final Creatinine 01/29/2025 07:36:57 0.5 0.5-1.0 (mg/dL) Final Glomerular filtration rate/1.73 sq M.predicted [Volume Rate/Area] in Serum, Plasma or Blood by Creatinine-based formula (CKD-EPI) 01/29/2025 07:36:57 >90 >=60 (mL/min) Final eGFR is calculated based on the CKD-EPI 2020 equation. Sodium 01/29/2025 07:36:57 138 135-146 (m mol/L) Final Potassium 01/29/2025 07:36:57 3.4 Below low normal 3.5 -5.1 (mmol/L) Final Cl 01/29/2025 07:36:57 103 98-107 (mm ol/L) Final CO2 01/29/2025 07:36:57 25 22-32 (mmo l/L) Final Anion gap 01/29/2025 07:36:57 10 7-15 (mmol /L) Final Glucose 01/29/2025 07:36:57 153 Above high normal 70 -120 (mg/dL) Final Albumin 01/29/2025 07:36:57 2.9 Below low normal 3.8 -5.0 (g/dL) Final AST (Aspartate aminotransferase) 01/29/2025 07:36:57 15 10-35 (U/L) Fin al Alk Phos 01/29/2025 07:36:57 99 35-130 (U/ L) Final Bilirubin, Total 01/29/2025 07:36:57 0.2 <=1 .2 (mg/dL) Final Calcium 01/29/2025 07:36:57 8.5 8.4-10.2 ( mg/dL) Final Protein 01/29/2025 07:36:57 5.9 Below low normal 6.0 -8.3 (g/dL) Final ALT (Alanine aminotransferase) 01/29/2025 07:36:57 10 10-35 (U/L) Hair magdaleno Performing Location [facility] [address] [place] [address]
--- OUTSIDE RECORDS SUMMARY | 2025-02-26 17:09 | External Medical Summary | Summary of Care ---
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) Prevention of chemotherapy-induced neutropenia Procedures AZ INJECTION, RITUXIMAB-PVVR, BIOSIMILAR, (RUXIENCE), 10 MG AZ INJ CYCLOPHOSPHAMD [facility] [place] BRENTUXIMAB VEDOTIN INJ AZ INJECTION, Logan Person MD [address] [facility] [address] [place], [place] [address] Phone: tel: fax: Hematology/Oncology Treatment, [address] [place] [address] Phone: tel: fax: Referral ID Status Reason Start Date Expiration Date V isits Requested Visits Authorized [id number] Authorized 11/29/2024 11/13/[phone] Encounter Details Date Type Department Care Team (Latest Contact Info) Description 01/29/2025 8:30 AM EDT Hem/Onc Treatment Hematology/On[address]olog [address], [address] [phone] Kaykay, Chair 7 Hem Onc [address] [place] [address] Encounter for antineoplastic chemotherapy*; 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); Prevention of chemotherapy-induced neutropenia Allergies Active Allergy Reactions Criticality Noted Date Comments Nickel Rash 03/11/2015 documented as of this encounter (statuses as of 01/29/2025) Medications CALTRATE 600 + D 600-125 MG-IU [...] as of this encounter (statuses as of 01/29/2025) Active Problems Problem Noted Date Diagnosed Date Encounter for adjustment and management of vascular access device 01/08/2025 Prevention of chemotherapy-induced neutropenia 0 12/31/2024 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 11/29/2024 Encounter for antineoplastic chemotherapy 2024 BREAST CANCER UNSPECIFIED,FEMALE 10/25/2008 Other iron deficiency anemia Overview (08/15/2017): ICD-10 update of inactive term Osteoporosis documented as of this encounter (statuses as of 01/29/2025) Resolved Problems Problem Noted Date Diagnosed Date Resolved Date Other iron deficiency anemia 12/19/2008 Overview (08/15/2017): Resolved per Duplicate Protocol #2. ICD-10 update of inactive term documented as of this encounter (statuses as of 01/29/2025) Social History Tobacco Use Types Packs/Day Years [...] Care Team (Late st Contact Info) Description 01/30/2025 1:00 PM EDT Immunization/Injectio n Hematology/Oncology Treatment, [place] [address] [place] [phone] Kaykay, Chair 7 Hem Onc [address] [place] [address] [address] 02/06/2025 7:50 AM EDT Laboratory Laboratory [facility] [place] Jai Mccracken [address] [place] [address] [phone] Kaykay Lab [facility] [address] [place] [address] [address] 02/06/2025 8:30 AM EDT Nurse Only Hematology/Oncology [facility] [place] [address] [place] [phone] Kaykay, Nurse Hem Onc Scene [address] [place] [address] 02/11/2025 12:45 PM EDT Imaging Radiology [address] [place] [phone] 02/14/2025 9:30 AM EDT Laboratory Laboratory [facility] Kaykay [place] [address] [place] [phone] Kaykay Lab [facility] [place] [address] 02/14/2025 10:00 AM EDT Office Visit Hematology/Oncology [facility] [place] [address] [place] [phone] Logan Plummer MD [address] [place] [address] 02/19/2025 8:45 AM EDT Hem[facility] [address] [place] [phone] Kaykay, Chair 3 Hem Onc [facility] [address] [facility] [place] [address] Scheduled Procedures Name Priority Associated Diagnoses Date/Ti [...] D LEVEL ONCE IN A LIFETIME-USE SMARTSET# 21214 Completed 10/25/2008 Pneumococcal Vaccine: 50+ Years Completed [...] this encounter Medical Devices Implanted Type Area Agricultural Sales Representative Device Identifier Shelf Expiration Date Model / Serial / Lot Power Port 8fr Sngl Lumen Plas - [id number] Implanted:Qty : 1 on 12/05/2024 by Taco Sanchez MD at [facility] Left: Chest CR BARD : PERIPHERAL VASCULAR [id number] 07/14/2025 [id number] / / [id number] documented as of this encounter Visit Diagnoses [...] mL documented in this encounter Care Teams Director Of Physician Practices Relationship Specialty Start Date End Date Stephany Gilbert CRNP [address] [place] [address] [place] [address] PCP - General Nurse Practitioner 02/02/23 documented as of this encounter
--- OUTSIDE RECORDS SUMMARY | 2025-02-26 17:09 | External Medical Summary | Summary of Care ---
Author Name Unknown Organization [facility] Address [address] [facility] [place] [address] Phone [phone] Care Team Providers Care Administrative Library Assistant Name Role Phone Stephany Gilbert Primary Care Provider Reason for Visit * Reason Comments Procedure Labs from port Encounter Details Date Type Department Care Team (Late st Contact Info) Description 01/29/2025 7:45 AM EDT Nurse Only Hematology/Oncology Treatment, [place] [address] [place] [facility] [place] [phone] Park, Chair [address] [facility] [address] [facility] [address] Procedure (Labs from port) Allergies Active Allergy [...] Notes * Eusebia Swain RN - 01/29/2025 7:55 AM EDT Patient here for labs from port. Port accessed without difficulty, patient tolerated well. + blood return. Waste tube drawn, labs drawn, flushed with 20 ML NSS per protocol. Dressing applied. Alcohol cap applied. Patient to provider appointment. documented in this encounter Plan of Treatment Upcoming Encounters Date Type Department Care Team (Late st Contact Info) Description 01/29/2025 8:30 AM EDT Hem/Onc Treatment Hematology/Oncology Treatment, [place] [address] [place] [phone] Park, Chair [address] 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) 01/29/2025 7:36 AM EDT URIC ACID Lab STAT Encounter for antineoplastic chemotherapy 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) 01/29/2025 7:36 AM EDT Scheduled Procedures Name Priority Associated Diagnoses Date/Ti [...] D LEVEL ONCE IN A LIFETIME-USE SMARTSET# 22483 Completed 10/25/2008 Pneumococcal Vaccine: 50+ Years Completed [...] this encounter Medical Devices Implanted Type Area Records Management Coordinator Device Identifier Shelf Expiration Date Model / Serial / Lot Power Port 8fr Sngl Lumen Plas - [id number] Implanted:Qty : 1 on 12/05/2024 by Taco Sanchez MD at OR [facility] Left: Chest CR BARD : PERIPHERAL VASCULAR [id number] 07/14/2025 [id number] / / [id number] documented as of this encounter Procedures Procedure Name Priority Date/Time Associated Diagnosis Comments DIFFERENTIAL, AUTOMATED STAT 01/29/2025 7:36 AM EDT 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) COMPREHENSIVE METABOLIC PANEL STAT 01/29/2025 7:36 AM EDT Encounter for antineoplastic chemotherapy 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) CBC STAT 01/29/2025 7:36 AM EDT 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) CBC STAT 01/29/2025 7:36 AM EDT 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) DIFFERENTIAL, TECHNOLOGIST REVIEW Routine 01/29/2025 7:36 AM EDT 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) documented in this encounter Results * (ABNORMAL) DIFFERENTIAL, TECHNOLOGIST REVIEW (01/29/2025 7:36 AM EDT) WBC 11.08(H) 4.00 - 10.80 K/uL 01/29/2025 8:10 AM EDT LAB[facility] 56-02 Neutrophils % 82.0(H) 40.0 - 75.0 % 01/29/2025 8:10 AM EDT [facility] 56- Lymphocytes % 10.0(L) 18.0 - 42.0 % 01/29/2025 8:10 AM EDT [facility] [place] 56- Monocytes % 4.0 1.0 - 11.0 % 01/29/2025 8:10 AM EDT [facility] [place] 56- Eosinophils % 3.0 0.0 - 6.0 % 01/29/2025 8:10 AM EDT [facility] 56- Metamyelocytes % 1.0(H) <=0.0 % 01/30/20 8:10 AM EDT [facility] 56-02 Absolute Neutrophils 9.09(H) 1.80 - 7.70 K/uL 01/29/2025 8:10 AM EDT [facility] [place] 56- Absolute Lymphocytes 1.11 1.00 - 4.80 K/uL 01/29/2025 8:10 AM EDT [facility] 56-02 Absolute Monocytes 0.44 0.00 - 1.10 K/uL 01/29/2025 8:10 AM EDT [facility] 56-02 Absolute Eosinophils 0.33 0.00 - 0.70 K/uL 01/29/2025 8:10 AM EDT [facility] [place] 56-02 Absolute Metamyelocytes 0.11(H) <=0.00 K/uL 01/29/2025 8:10 AM EDT [facility] [place] 56-02 nRBCs 01/29/2025 8:10 AM EDT [facility] [place] 56- Elliptocytes Moderate( A) None Seen 01/29/2025 8:10 AM EDT [facility] 56-02 Polychromasia Moderate( A) None Seen 01/29/2025 8:10 AM EDT [facility] Reactive Lymphocytes Present(A ) None Seen 01/29/2025 8:10 AM EDT [facility] Blood Venous blood specimen / Unknown Central Line / Unknown 01/29/2025 7:36 AM EDT 01/29/2025 7:55 AM EDT Logan Plummer MD LAB BLOOD ORDERABLES Final Res ult [facility] [address] [place] [address] * DIFFERENTIAL, AUTOMATED (01/29/2025 7:36 AM EDT) Blood Venous blood specimen / Unknown Central Line / Unknown 01/29/2025 7:36 AM EDT 01/29/2025 7:55 AM EDT Logan Plummer MD LAB BLOOD ORDERABLES Final Res ult Performing Organization Address City/[facility]/ZIP Co de Phone Number [facility] [address] [place] [address] * (ABNORMAL) CBC (01/29/2025 7:36 AM EDT) Pathologist [facility] WBC 11.08(H) 4.00 - 10.80 K/uL 01/29/2025 8:10 AM EDT [facility] RBC 2.88 3.85 - 5.15 M/uL 01/29/2025 8:10 AM EDT [facility] 56 HGB 8.1(L) 12.0 - 15.3 g/dL 01/29/2025 8:10 AM EDT [facility] 56 HCT 26.8(L) 36.0 - 45.2 % 01/29/2025 8:10 AM EDT [facility] 56 MCV 93.1 81.5 - 97.5 fL 01/29/2025 8:10 AM EDT [facility] 56 MCH 28.1 27.0 - 34.0 pg 01/29/2025 8:10 AM EDT [facility] 56 MCHC 30.2 32.0 - 36.0 g/dL 01/29/2025 8:10 AM EDT [facility] 56 RDW 20.6 11.5 - 15.5 % 01/29/2025 8:10 AM EDT [facility] 56 PLT 493(H) 140 - 400 K/uL 01/29/2025 8:10 AM EDT [facility] 56 MPV 8.5 6.6 - 11.1 fL 01/29/2025 8:10 AM EDT [facility] 56 Blood Venous blood specimen / Unknown Central Line / Unknown 01/29/2025 7:36 AM EDT 01/29/2025 7:55 AM EDT us Logan Plummer MD LAB BLOOD ORDERABLES Final Res ult [facility] [address] [place] [address] * (ABNORMAL) COMPREHENSIVE METABOLIC PANEL (01/29/2025 7:36 AM EDT) BUN 10 6 - 20 mg/dL 01/29/2025 8:17 AM T [facility] CREATININE 0.5 0.5 - 1.0 mg/dL 01/29/2025 8:17 AM EDT [facility] 56 EGFR >90 >=60 mL/min 01/29/2025 8:17 AM T [facility] 56 Comment:eGFR is calculated b ased on the CKD-EPI 2020 equation. SODIUM 138 135 - 146 mmol/L 01/29/2025 8:17 AM EDT [facility] 56 POTASSIUM 3.4(L) 3.5 - 5.1 mmol/L 01/29/2025 8:17 AM EDT [facility] 56 CHLORIDE 103 98 - 107 mmol/L 01/29/2025 8:17 AM EDT [facility] 56 CO2 25 22 - 32 mmol/L 01/29/2025 8:17 AM EDT [facility] 56-02 ANION GAP 10 7 - 15 mmol/L 01/29/2025 8:17 AM EDT [facility] 56- GLUCOSE 153(H) 70 - 120 mg/dL 01/29/2025 8:17 AM EDT [facility] 56- Albumin 2.9(L) 3.8 - 5.0 g/dL 01/29/2025 8:17 AM EDT [facility] 56- AST 15 10 - 35 U/L 01/29/2025 8:17 AM EDT [facility] 56- Alkaline Phosphatase 99 35 - 130 U/L 01/29/2025 8:17 AM EDT [facility] 56- Bilirubin, Total 0.2 <=1.2 mg/dL 01/29/2025 8:17 AM EDT [facility] 56- CALCIUM 8.5 8.4 - 10.2 mg/dL 01/29/2025 8:17 AM EDT [facility] 56- Protein 5.9(L) 6.0 - 8.3 g/dL 01/29/2025 8:17 AM EDT [facility] 56- ALT 10 10 - 35 U/L 01/29/2025 8:17 AM EDT [facility] 56 Blood Venous blood specimen / Unknown Central Line / Unknown 01/29/2025 7:36 AM EDT 01/29/2025 7:55 AM EDT us Logan Plummer MD LAB BLOOD ORDERABLES Final Res ult [facility] 56 [address] [place] [address] documented in this encounter Visit Diagnoses Diagnosis Encounter for adjustment and management of vascular access device- Primary 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
--- OUTSIDE RECORDS SUMMARY | 2025-02-26 17:09 | External Medical Summary ---
Author Name Unknown Address Unknown Organization K09:[facility] [place] 56-02 - [address] [place] [address] Laboratory Report Ordering Provider Test Date Status ERIN FLORES 02/06/2025 08:12:31 Final Observation Date Value Abnormality Reference (Units ) Status BUN 02/06/2025 08:12:31 8 6-20 (mg/dL) Final Creatinine 02/06/2025 08:12:31 0.7 0.5-1.0 (mg/dL) Final Glomerular filtration rate/1.73 sq M.predicted [Volume Rate/Area] in Serum, Plasma or Blood by Creatinine-based formula (CKD-EPI) 02/06/2025 08:12:31 >90 >=60 (mL/min) Final eGFR is calculated based on the CKD-EPI 2020 equation. Sodium 02/06/2025 08:12:31 137 135-146 (m mol/L) Final Potassium 02/06/2025 08:12:31 3.1 Below low normal 3.5 -5.1 (mmol/L) Final Cl 02/06/2025 08:12:31 101 98-107 (mm ol/L) Final CO2 02/06/2025 08:12:31 23 22-32 (mmo l/L) Final Anion gap 02/06/2025 08:12:31 13 7-15 (mmol /L) Final Glucose 02/06/2025 08:12:31 132 Above high normal 70 -120 (mg/dL) Final Albumin 02/06/2025 08:12:31 3.4 Below low normal 3.8 -5.0 (g/dL) Final AST (Aspartate aminotransferase) 02/06/2025 08:12:31 27 10-35 (U/L) Fin al Alk Phos 02/06/2025 08:12:31 98 35-130 (U/ L) Final Bilirubin, Total 02/06/2025 08:12:31 0.4 <=1 .2 (mg/dL) Final Calcium 02/06/2025 08:12:31 9.1 8.4-10.2 ( mg/dL) Final Protein 02/06/2025 08:12:31 6.4 6.0-8.3 (g /dL) Final ALT (Alanine aminotransferase) 02/06/2025 08:12:31 17 10-35 (U/L) Hair magdaleno Performing Location [facility] [place] [address] [place] [address]
--- OUTSIDE RECORDS SUMMARY | 2025-02-26 17:09 | External Medical Summary ---
Author Name Unknown Address Unknown Organization K01:[facility] [address] [place] [address] Laboratory Report Ordering Provider Test Date Status ERIN FLORES 01/29/2025 07:36:57 Final Observation Date Value Abnormality Reference (Units ) Status Uric Acid 01/29/2025 07:36:57 2.5 2.4-5.7 (m g/dL) Final Performing Location [facility] - [address] [place] [address]
--- OUTSIDE RECORDS SUMMARY | 2025-02-26 17:09 | External Medical Summary ---
Author Name Unknown Address Unknown Organization K01:[facility] - [address] [place] [address] Laboratory Report Ordering Provider Test Date Status ERIN FLORES 01/29/2025 07:36:57 Final Observation Date Value Abnormality Reference (Units ) Status LDH 01/29/2025 07:36:57 221 <=250 (U/L ) Final Performing Location [facility] - [address] [place] [address]
--- OUTSIDE RECORDS SUMMARY | 2025-02-26 17:09 | External Medical Summary ---
Author Name Unknown Address Unknown Organization K09:[facility]- - [address] [place] [address] Laboratory Report Ordering Provider Test Date Status ERIN FLORES 01/29/2025 07:36:57 Final Observation Date Value Abnormality Reference (Units ) Status SYNC LEUKOCYTES IN BLOOD BY AUTOMATED COUNT 01/29/2025 07:36:57 11.08 Above high normal 4.00-10.80 (K/uL) Final Neutrophils/100 leukocytes in Blood by Manual count 01/29/2025 07:36:57 82.0 Above high normal 40.0-75.0 (%) Final Lymphocytes/100 leukocytes in Blood by Manual count 01/29/2025 07:36:57 10.0 Below low normal 18.0-42.0 (%) Final Monocytes/100 leukocytes in Blood by Manual count 01/29/2025 07:36:57 4.0 1.0-11.0 (%) Final Eosinophils/100 leukocytes in Blood by Manual count 01/29/2025 07:36:57 3.0 0.0-6.0 (%) Final Metamyelocytes/100 leukocytes in Blood by Manual count 01/29/2025 07:36:57 1.0 Above high normal <=0.0 (%) Final Neutrophils [#/volume] in Blood by Manual count 01/29/2025 07:36:57 9.09 Above high normal 1.80-7.70 (K/uL) Final Lymphocytes [#/volume] in Blood by Manual count 01/29/2025 07:36:57 1.11 1.00-4.80 (K/uL) Final Monocytes [#/volume] in Blood by Manual count 01/29/2025 07:36:57 0.44 0.00-1.10 (K/uL) Final Eosinophils [#/volume] in Blood by Manual count 01/29/2025 07:36:57 0.33 0.00-0.70 (K/uL) Final Metamyelocytes [#/volume] in Blood by Manual count 01/29/2025 07:36:57 0.11 Above high normal <=0.00 (K/uL) Final Nucleated erythrocytes/100 leukocytes [Ratio] in Blood by Automated count 01/29/2025 07:36:57 Final Elliptocytes [Presence] in Blood by Light microscopy 01/29/2025 07:36:57 Moderate Abnormal None Seen Final Polychromasia [Presence] in Blood by Light microscopy 01/29/2025 07:36:57 Moderate Abnormal None Seen Final Variant lymphocytes [Presence] in Blood by Light microscopy 01/29/2025 07:36:57 Present Abnormal None Seen Final Performing Location [facility]- [address] [place] [address]
--- OUTSIDE RECORDS SUMMARY | 2025-02-26 17:09 | External Medical Summary | Summary of Care ---
Author Name Unknown Organization [facility] Address [address] [facility] [place] [address] Phone [phone] Care Team Providers Care Crystal Grower Name Role Phone Stephany Gilbert Primary Care Provider Encounter Details Date Type Department Care Team (Late st Contact Info) Description 01/28/2025 Orders Only Hematology/Oncology [place] M[facility]en [place] [address] [facility] [place] [phone] Denisa Park MD [address] [facility] [place] [address] Allergies Active Allergy Reactions Criticality Noted Date [...] 7:45 AM EDT Nurse Only Hematology/Oncology Treatment, [place] [address] [place] [phone] Kaykay, Chair 1 Hem Onc [facility] [address] [place] [address] 01/29/2025 8:00 AM EDT Office Visit Hematology/Oncology [facility] [address] [place] [phone] Etelvina Mo [facility] [address] 01/29/2025 8:30 AM EDT Hem/Onc Treatment Hematology/Oncology Treatment, [place] [address] [place] [phone] Kaykay, Chair 7 Hem Onc [facility] [address] [facility] [place] [address] 02/11/2025 12:45 PM EDT Imaging Radiology [address], [place] [address] [place] [phone] 02/14/2025 10:00 AM EDT Office Visit Hematology/Oncology [facility] [address] [place] [phone] Logan Plummer MD [address] [place] [address] Scheduled Procedures Name Priority Associated Diagnoses Date/Ti [...] D LEVEL ONCE IN A LIFETIME-USE SMARTSET# 04521 Completed 10/25/2008 Pneumococcal Vaccine: 50+ Years Completed [...] this encounter Medical Devices Implanted Type Area Refinery Operator Coking Device Identifier Shelf Expiration Date Model / Serial / Lot Power Port 8fr Sngl Lumen Plas - [id number] Implanted:Qty : 1 on 12/05/2024 by Taco Sanchez MD at [facility] Left: Chest CR BARD : PERIPHERAL VASCULAR [id number] 07/14/2025 [id number] / / [id number] documented as of this encounter Care Teams Crystal Grower Relationship Specialty Start Date End Date Stephany Gilbert CRNP [address] [place] [address] [place] [address] PCP - General Nurse Practitioner 02/02/23 documented as of this encounter
--- OUTSIDE RECORDS SUMMARY | 2025-02-26 17:09 | External Medical Summary | Summary of Care ---
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)*; Prevention of chemotherapy-induced neutropenia; Iron deficiency anemia, unspecified iron deficiency anemia type; Gastroesophageal reflux disease, unspecified whether esophagitis present Allergies Active Allergy Reactions Criticality Noted Date Comments Nickel Rash 03/11/2015 documented as of this encounter (statuses as of 02/03/2025) Medications CALTRATE 600 + D 600-125 MG-IU [...] as of this encounter (statuses as of 02/03/2025) Active Problems Problem Noted Date Diagnosed Date Encounter for adjustment and management of vascular access device 01/08/2025 Prevention of chemotherapy-induced neutropenia 0 12/31/2024 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 11/29/2024 Encounter for antineoplastic chemotherapy 2024 BREAST CANCER UNSPECIFIED,FEMALE 10/25/2008 Other iron deficiency anemia Overview (08/15/2017): ICD-10 update of inactive term Osteoporosis documented as of this encounter (statuses as of 02/03/2025) Resolved Problems Problem Noted Date Diagnosed Date Resolved Date Other iron deficiency anemia 12/19/2008 Overview (08/15/2017): Resolved per Duplicate Protocol #2. ICD-10 update of inactive term documented as of this encounter (statuses as of 02/03/2025) Social History Tobacco Use Types Packs/Day Years [...] Sign Reading Time Taken Comments Blood Pressure 123/68 01/29/2025 7:55 AM EDT Pulse 101 01/29/2025 7:55 AM EDT Temperature 37.4 °C (99.4 °F) 01/29/2025 7:55 AM ED T Respiratory Rate - - Oxygen Saturation 90% 01/29/2025 7:55 AM EDT Inhaled Oxygen Concentration - - Weight 60.1 kg (132 lb 9.6 oz) 01/29/2025 7:55 A M EDT Height - - Body Mass Index 22.07 12/05/2024 1:31 PM EST documented in this encounter Progress Notes * Etelvina Mo CRNP - 01/29/2025 8:00 AM EDT [facility] [address] [place] [address] Name: Theresa Pascual Date: 01/28/2025 CHIEF COMPLAINT: Theresa Pascual is a 74 year old female here today for f/u visit today. Patient of Dr. Logan Plummer. From Patient chart confirmed with patient. From Dr. Logan Plummer note 01/08/25. HEMATOLOGY/ONCOLOGY DIAGNOSIS: Diffuse large B-cell lymphoma with CD30 positivity involving the cervical lymph node, mediastinum, abdominal lymph node. No organ involvement. No bone marrow involvement -BCL2 rearrangement detected but negative for MYC and BCL-6 rearrangement. Severe iron deficiency anemia -underlying CREST syndrome and GAVE History of diffuse large B-cell lymphoma, in 2013 she was treated with 6 cycles of EPOCH-R and thenshe remained in remission DATE OF DIAGNOSIS: November 2024 TREATMENT HISTORY: Venofer weekly x4 between 12/04/2024 -12/31/2024 CURRENT TREATMENT: Brentuximab, Cytoxan, rituximab, prednisone therapy. (12/18/2024 - ) -Adriamycin was not given because she had received previously for the lymphoma diagnosis in the past. Pegfilgrastim support D2 Acyclovir prophylaxis DIAGNOSTIC WORKUP: With history of underlying CREST [...] that time, as per the previous notes, lymph node positive, she had chemotherapy, radiation treatment and tamoxifen for 5 years, she was treated by Dr. Rashid at that time. Osteopenia -iron deficiency -GERD -interested lung disease -pulmonary lung nodules. -GAVE HISTORY OF PRESENT ILLNESS: Theresa Pascual is a 74 year old female with a history as outlined above. Currently here for f/u visit today and consideration for C3D1 of treatment. Patient feeling well today. No complaints or concerns verbalized. Denies mouth sores or pain. Denies SOB or coughing. Denies nausea or vomiting. Bowels are moving normally. Denies rashes or skin changes. Denies numbness or tingling. Denies bone pain from the pegfilgrastim. Taking Claritin as recommended. Having breakthrough GERD in the evening despite taking Omeprazole 40 mg in the AM. Past Medical History: Diagnosis Date Malignant neoplasm of other specified sites of female breast 1987 Osteoporosis Other specified iron deficiency anemias Past Surgical History: Procedure Laterality Date COLONOSCOPY, DIAGNOSTIC (RECTUM) 03/17/2015 normal, repeat 10 yrs COLONOSCOPY, DIAGNOSTIC (RECTUM) 11/09/2023 diverticulosis in sigmoid, internal hemorrhoids / no specimens collected / COLONOSCOPY FLEXIBLE PROXIMAL DIAGNOSTIC performed by Kael Garcia MD at ENDOSCOPY [facility] EGD, FLEXIBLE, DIAGNOSTIC 11/09/2023 LA grade B reflux esopahagitis , gastritis / biopsies mild to moderate inflammation / ESOPHAGOGASTRODUODENOSCOPY (EGD), FLEXIBLE, TRANSORAL, DIAGNOSTIC performed by Kael Garcia MD at ENDOSCOPY [facility] EGD, FLEXIBLE, DIAGNOSTIC 01/12/2024 antral gastritis/ESOPHAGOGASTRODUODENOSCOPY (EGD), FLEXIBLE, TRANSORAL, DIAGNOSTIC performed by Suzette Lopez MD at ENDOSCOPY [facility] INSER TUNN ACC DEV;5 YRS/OLDER Left 12/05/2024 INSERT TUNNELED CENTRAL VENOUS ACCESS WITH SUBQ PORT performed by Taco Sanchez MD at OR [facility] IR BIOPSY 10/18/2024 IR BIOPSY 11/19/2024 MASTECTOMY,RADICAL 11/14/1987 Social History Socioeconomic History Marital status: Spouse name: Not on file Number of children: 0 Years of education: Not on file Highest education level: Not on file Occupational History Employer: [employer] Tobacco Use Smoking status: Never Smokeless tobacco: [...] on file Housing Stability: Not on file Review of patient's allergies indicates: Allergen Reactions Nickel Rash Current Outpatient Medications Medication Sig Dispense Refill [...] 1 Tablet before bedtime. 180 Tablet 3 No current facility-administered medications for this visit. REVIEW OF SYSTEMS: See HPI - otherwise negative OBJECTIVE: Filed Vitals: 01/29/25 0755 BP: 123/68 Pulse: 101 Temp: 37.4 °C (99.4 °F) TempSrc: Tympanic SpO2: 90% Weight: 60.1 kg (132 lb 9.6 oz) Wt Readings from Last 5 Encounters: 01/29/25 60.1 kg (132 lb 9.6 oz) 01/08/25 60.6 kg (133 lb 8 oz) 12/18/24 62.3 kg (137 lb 4.8 oz) 12/05/24 63.5 kg (140 lb) 11/29/24 63.5 kg (140 lb) PHYSICAL EXAM: ECOG: Performance Status 1 = 80-90% Symptoms but nearly ambulatory General Appearance: Normal - Healthy appearing patient in no acute distress HEENT: Normal - No oral or pharyngeal masses, ulceration or thrush noted Lymph Nodes: Normal - No palpable lymph nodes in the neck, supraclavicular or axillary areas Lungs/Thorax: Normal - Clear to auscultation Heart: Normal - Regular rate and rhythm, normal S1, S2, no appreciable murmurs Pulses/Extremities: Normal - 2+ throughout and symmetrical, no edema Abdomen: Normal - Soft, nontender, bowel sounds present, no appreciable hepatosplenomegaly, no palpable masses Neurologic: Normal - Grossly intact LABS: Results for orders placed or performed in visit on 01/29/25 COMPREHENSIVE METABOLIC PANEL Result Value Ref Range BUN 10 6 - 20 mg/dL CREATININE 0.5 0.5 - 1.0 mg/dL EGFR >90 >=60 mL/min SODIUM 138 135 - 146 mmol/L POTASSIUM 3.4 (L) 3.5 - 5.1 mmol/L CHLORIDE 103 98 - 107 mmol/L CO2 25 22 - 32 mmol/L ANION GAP 10 7 - 15 mmol/L GLUCOSE 153 (H) 70 - 120 mg/dL Albumin 2.9 (L) 3.8 - 5.0 g/dL AST 15 10 - 35 U/L Alkaline Phosphatase 99 35 - 130 U/L Bilirubin, Total 0.2 <=1.2 mg/dL CALCIUM 8.5 8.4 - 10.2 mg/dL Protein 5.9 (L) 6.0 - 8.3 g/dL ALT 10 10 - 35 U/L CBC Result Value Ref Range WBC 11.08 (H) 4.00 - 10.80 K/uL RBC 2.88 3.85 - 5.15 M/uL HGB 8.1 (L) 12.0 - 15.3 g/dL HCT 26.8 (L) 36.0 - 45.2 % MCV 93.1 81.5 - 97.5 fL MCH 28.1 27.0 - 34.0 pg MCHC 30.2 32.0 - 36.0 g/dL RDW 20.6 11.5 - 15.5 % PLT 493 (H) 140 - 400 K/uL MPV 8.5 6.6 - 11.1 fL DIFFERENTIAL, TECHNOLOGIST REVIEW Result Value Ref Range WBC 11.08 (H) 4.00 - 10.80 K/uL Neutrophils % 82.0 (H) 40.0 - 75.0 % Lymphocytes % 10.0 (L) 18.0 - 42.0 % Monocytes % 4.0 1.0 - 11.0 % Eosinophils % 3.0 0.0 - 6.0 % Metamyelocytes % 1.0 (H) <=0.0 % Absolute Neutrophils 9.09 (H) 1.80 - 7.70 K/uL Absolute Lymphocytes 1.11 1.00 - 4.80 K/uL Absolute Monocytes 0.44 0.00 - 1.10 K/uL Absolute Eosinophils 0.33 0.00 - 0.70 K/uL Absolute Metamyelocytes 0.11 (H) <=0.00 K/uL nRBCs Elliptocytes Moderate (A) None Seen Polychromasia Moderate (A) None Seen Reactive Lymphocytes Present (A) None Seen IMPRESSION/PLAN: Diffuse Large B-cell Lymphoma Prevention of chemotherapy induced neutropenia Iron deficiency anemia GERD Currently being treated with Brentuximab, Cytoxan, rituximab, and prednisone therapy. Presents today for consideration of C3D1 of treatment. Overall tolerating treatment plan well with no signs or symptoms of significant toxicity noted. Labresults reviewed: Hgb stable at 8.1. Potassium mildly low at 3.4 - provided patient with education on high potassium diet Ok for treatment today as scheduled. Noting clinical improvement in lymphadenopathy. Will continue acyclovir prophylaxis. She is at high-risk for febrile neutropenia, she will receive prophylactic Pegfilgrastim D2. Restaging PET/CT scheduled 02/11/25. Reporting breakthrough reflux symptoms in the evening despite Omeprazole 40 mg in the AM. Recommending taking OTC Pepcid in the evening. RTC as scheduled EARL Mckoy documented in this encounter Nursing Notes * Shanti Kimbrough CMA - 01/29/2025 7:56 AM EDT Patient identifed by name and birthdate Do you have any concerns about pain management for today's visit? No Living Will or Advance Directive for Health Care as noted on the problem list. [place] [employer] is a way you can talk to your provider on line through e-mail. Would you like to sign up? I can activate it for you? NO Filed Vitals: 01/29/25 0755 BP: 123/68 Pulse: 101 Temp: 37.4 °C (99.4 °F) TempSrc: Tympanic SpO2: 90% Weight: 60.1 kg (132 lb 9.6 oz) Patient was instructed to not get [...] comprehension of instructions. documented in this encounter Miscellaneous Notes * Pt Handout (on AVS) - Etelvina Mo CRNP - 01/29/2025 8:28 AM EDT [id number] Potassium-Rich Foods The recommended average daily intake of potassium for a healthy man is 3,400 mg a day. For a healthy woman who is not , the amount is 2,600 mg a day. More potassium is needed when you lose too much potassium from your body. This can happen if you have diarrhea or vomiting. Or if you have inflammatory bowel disease. It can also happen if you take a medicine to make you urinate more (diuretic) or large doses of laxatives. People with chronic kidney disease must be careful not to get too much potassium. If your healthcare provider tells you that you need to increase the amount of potassium in your diet, include these high-potassium foods. [The (*) indicates foods highest in potassium.] Vegetables Artichokes. Cooked 1/2 cup, 200 mg to 300 mg* Asparagus. Cooked 1/2 cup, 200 mg to 300 mg Beans. White, red, real cooked 1/2 cup, 300 mg to 500 mg* Beets. Cooked 1/2 cup, 200 mg to 300 mg Broccoli. Cooked or raw 1 cup, 200 mg to 500 mg* Lucien sprouts. Cooked 1/2 cup, 200 mg to 300 mg Cabbage. Raw 1 cup, 100 mg to 200 mg Carrots. Raw or cooked 1/2 cup, 100 mg to 200 mg Celery. Raw 1 cup, 200 mg to 300 mg [place] beans. Fresh or frozen 1/2 cup, 300 mg to 500 mg* Mushrooms. Raw or cooked 1/2 cup, 100 mg to 300 mg Peas. Cooked 1/2 cup, 150 mg to 250 mg Potatoes. Baked 1 medium, 500 mg to 900 mg* Spinach. Cooked 1 cup, 800 mg to 900 mg* Spinach. Raw 2 cups, 300 mg to 400 mg* Squash, winter. Fresh, frozen, or cooked 1/2 cup, 200 mg to 400 mg Tomato. Fresh 1 medium, 200 mg to 300 mg Tomato juice. Canned 1/2 cup, 200 mg to 300 mg Fruits Apple juice. Unsweetened 1 cup, 200 mg to 300 mg Apricots. Canned 1/2 cup, 200 mg to 300 mg Apricots. Dried 4 pieces, 100 mg to 200 mg Avocado. Raw 1/2 cup, 300 mg to 400 mg* Banana. Fresh 1 small, 300 mg to 400 mg* Cantaloupe. Fresh 1 cup diced, 300 mg to 400 mg* Grape juice. Unsweetened 1 cup, 200 mg to 300 mg Honeydew melon. Fresh 1 cup diced, 300 mg to 400 mg* [place]. Fresh 1 medium, 200 mg to 300 mg [place] juice. Unsweetened, fresh or frozen 1/2 cup, 200 mg to 300 mg Pineapple juice. Unsweetened 1 cup, 300 mg to 400 mg Prune juice. Unsweetened 1/2 cup, 300 mg to 400 mg* Prunes. Dried 5 pieces, 300 mg to 400 mg* Strawberries. Fresh or frozen 1 cup, 200 mg to 300 mg Meat Red meat. Cooked 3 ounces, 100 mg to 300 mg Seafood Cod, flounder, halibut. Cooked 3 ounces, 100 mg to 300 mg* [place]. Cooked, 3 ounces 300 mg to 400 mg* Scallops. Cooked 3 ounces, 200 mg to 300 mg* Shrimp. Cooked 3/4 cup, 100 mg to 200 mg Tuna. Fresh or canned 3/4 cup, 200 mg to 500 mg Last Reviewed Date: 2022 00:00:00 © 5107-1108 [employer]. All rights reserved. This information is not intended as a substitute for professional medical care. Always follow your healthcare professional's instructions. documented in this encounter Plan of Treatment Upcoming Encounters Date Type Department Care Team (Late st Contact Info) Description 02/06/2025 7:50 AM EDT Laboratory Laboratory [facility] [place] [address] [place] [phone] [place] Lab [facility] [address] [facility] [place] [address] 02/06/2025 8:30 AM EDT Nurse Only Hematology/Oncology [facility] [place] [address] [place] [phone] Kay[place], Nurse Hem Onc [facility] [address] [place] [address] 02/11/2025 12:45 PM EDT Imaging Radiology [facility], [place] [address] [place] [phone] 02/14/2025 9:30 AM EDT Laboratory Laboratory [facility] [place] [address] [place] [phone] Kay[place], Lab [address] [facility] [place] [address] 02/14/2025 10:00 AM EDT Office Visit Hematology/Oncology [facility] [place] [address] [place] [phone] Logan Plummer MD [address] [place] [address] 02/19/2025 8:45 AM EDT Hem/Onc Treatment Hematology/Oncology Treatment, [place] [address] [place] [phone] Kaykay, Chair 3 Hem Onc [facility] [address] [facility] [place] [address] Scheduled Procedures Name Priority Associated Diagnoses Date/Ti [...] D LEVEL ONCE IN A LIFETIME-USE SMARTSET# 16767 Completed 10/25/2008 Pneumococcal Vaccine: 50+ Years Completed [...] this encounter Medical Devices Implanted Type Area Hall Worker Device Identifier Shelf Expiration Date Model / Serial / Lot Power Port 8fr Sngl Lumen Plas - [id number] Implanted:Qty : 1 on 12/05/2024 by Taco Sanchez MD at OR [facility] Left: Chest CR BARD : PERIPHERAL VASCULAR [id number] 07/14/2025 [id number] / / [id number] documented as of this encounter Visit Diagnoses Diagnosis 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)- Primary Prevention of chemotherapy-induced neutropenia Iron deficiency anemia, unspecified iron deficiency anemia type Gastroesophageal reflux disease, unspecified whether esophagitis present documented in this encounter Care Teams Laborer Shaft Sinking Relationship Specialty Start Date End Date Stephany Gilbert CRNP [address] [place] [address] [place] [address] PCP - General Nurse Practitioner 02/02/23 documented as of this encounter
--- OUTSIDE RECORDS SUMMARY | 2025-02-26 17:09 | External Medical Summary | Summary of Care ---
Author Name Unknown Organization [facility] Address [address] [place] [place] [address] Phone [phone] Care Team Providers Care Anodize Machine Operator Name Role Phone Stephany Gilbert Primary Care Provider Reason for Visit * Reason Comments Medication Administration Fulphila 6mg * Episode Based Medications (Routine) - Authorized Specialty Diagnoses / Procedures Referred By Vicky orr Referred To Contact Diagnoses Encounter for antineoplastic chemotherapy 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) Prevention of chemotherapy-induced neutropenia Procedures IL INJECTION, RITUXIMAB-PVVR, BIOSIMILAR, (RUXIENCE), 10 MG IL INJ CYCLOPHOSPHAMD AUROMEDIC [place] BRENTUXIMAB VEDOTIN INJ IL INJECTION, Logan Person MD [address] [place] [address] [place] [address] Phone: tel: fax: Hematology/Oncology Treatment, [address] [address] Phone: tel: fax: Referral ID Status Reason Start Date Expiration Date V isits Requested Visits Authorized [id number] Authorized 11/29/2024 11/13/[phone] Encounter Details Date Type Department Care Team (Latest Contact Info) Description 01/30/2025 1:00 PM EDT Immunization/ Injection Hematology/Oncology Treatment, [address] [phone] Kaykay, Chair 7 Hem Onc [address] [place] [address] Encounter for antineoplastic chemotherapy*; 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); Prevention of chemotherapy-induced neutropenia Allergies Active Allergy Reactions Criticality Noted Date Comments Nickel Rash 03/11/2015 documented as of this encounter (statuses as of 01/30/2025) Medications CALTRATE 600 + D 600-125 MG-IU [...] as of this encounter (statuses as of 01/30/2025) Active Problems Problem Noted Date Diagnosed Date Encounter for adjustment and management of vascular access device 01/08/2025 Prevention of chemotherapy-induced neutropenia 0 12/31/2024 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 11/29/2024 Encounter for antineoplastic chemotherapy 2024 BREAST CANCER UNSPECIFIED,FEMALE 10/25/2008 Other iron deficiency anemia Overview (08/15/2017): ICD-10 update of inactive term Osteoporosis documented as of this encounter (statuses as of 01/30/2025) Resolved Problems Problem Noted Date Diagnosed Date Resolved Date Other iron deficiency anemia 12/19/2008 Overview (08/15/2017): Resolved per Duplicate Protocol #2. ICD-10 update of inactive term documented as of this encounter (statuses as of 01/30/2025) Social History Tobacco Use Types Packs/Day Years [...] Description 02/06/2025 7:50 AM EDT Laboratory Laboratory [facility] [address] [place] [phone] [place], Lab [facility] [address] [facility] [place] [address] 02/06/2025 8:30 AM EDT Nurse Only Hematology/Oncology [facility] [place] [address] [place] [phone] Kaykay, Nurse Hem Onc [facility] [address] [place] [address] 02/11/2025 12:45 PM EDT Imaging Radiology [facility] [place] [address] [place] [phone] 02/14/2025 9:30 AM EDT Laboratory Laboratory [facility] [place] [address] [place] [address] Geetha Mccracken Scene [address] [facility] [place], [place] [address] 02/14/2025 10:00 AM EDT Office Visit Hematology/Oncology [facility] [place] [address] [place] [phone] Logan Plummer MD [address] [place] [address] 02/19/2025 8:45 AM EDT [facility] [address] [place] [phone] Kaykay, Chair 3 Hem Onc [facility] [address] [facility] [place] [address] Scheduled Procedures Name Priority Associated Diagnoses Date/Ti [...] D LEVEL ONCE IN A LIFETIME-USE SMARTSET# [id number] Completed 10/25/2008 Pneumococcal Vaccine: 50+ Years Completed [...] this encounter Medical Devices Implanted Type Area Director Of Public Relations Device Identifier Shelf Expiration Date Model / Serial / Lot Power Port 8fr Sngl Lumen Plas - [id number] Implanted:Qty : 1 on 12/05/2024 by Taco Sanchez MD at OR [facility] Left: Chest CR BARD : PERIPHERAL VASCULAR [id number] 07/14/2025 [id number] / / [id number] documented as of this encounter Visit Diagnoses [...] Upper documented in this encounter Care Teams Anodize Machine Operator Relationship Specialty Start Date End Date Stephany Gilbert CRNP [address] [place] [address] [place] [address] PCP - General Nurse Practitioner 02/02/23 documented as of this encounter
--- OUTSIDE RECORDS SUMMARY | 2025-02-26 17:09 | External Medical Summary | Summary of Care ---
Author Name Unknown Organization [facility] Address [address] [facility] [place] [address] Phone [phone] Care Team Providers Care Senior Librarian Name Role Phone Stephany Gilbert Primary Care Provider Reason for Visit * Reason Comments IV Therapy Venofer infusion Encounter Details Date Type Department Care Team (Latest Contact Info) Description 12/31/2024 9:00 AM EST Hem/Onc Treatment Hematology/Oncology Treatment, [place] [address] [place] [phone] Kaykay, Chair 5 Hem Onc [facility] [address] [place] [address] Other iron deficiency anemia*; 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) Allergies Active Allergy Reactions Criticality Noted Date Comments Nickel Rash 03/11/2015 documented as of this encounter (statuses as of 01/24/2025) Medications CALTRATE 600 + D 600-125 MG-IU [...] 0 8 Active LCD 10% IN AQUAPHOR EXIndications:D ermatitis Apply to affected area once daily 60GM 3 9 Active ProAir HFA 108 (90 Base) MCG/ACT Inhalation Aerosol SolutionIndicat ions:Bronchitis , complicated Inhale by mouth 2 Puffs every [...] St 25 MCG (1000 UT) Oral Tablet (Cholecalcifero l) Take 1 Tablet by mouth in the [...] Oil 1000 MG Oral Capsule 1 Capsule. Act chrissy Ondansetron HCl 8 MG Oral Tablet (Zofran)Indicat ions: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) Take 1 Tablet by mouth every 8 hours as needed for Nausea. 30 Tablet 3 5 Active Prochlorperazin e Maleate 10 MG Oral Tablet (Compazine)Niyah cations: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) Take 1 Tablet by mouth every 6 hours as needed for Nausea. 30 Tablet 3 5 Active Lidocaine-Prilo alba 2.5-2.5 % External Cream (Emla)Indicatio ns: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) APPLY TO SKIN OVER MEDIPORT & COVER 1HR PRIOR TO ACCESSING. 30 g 1 5 Active predniSONE 50 MG Oral Tablet (Deltasone)Niyah cations: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) Take 100mg (2 tablets) once a day on days 1-5 of each cycle 10 Tablet 5 5 Active Acyclovir 400 MG Oral Tablet (Zovirax)Indica tions: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) Take 1 Tablet by mouth in the morning and 1 Tablet before bedtime. 180 Tablet 3 5 Active Mycophenolate Mofetil 500 MG Oral Tablet (Cellcept) Take by mouth 2 times a day. 025 Discontin ued(End of Procedure ) Allopurinol 300 MG Oral Tablet (Zyloprim)Indic ations: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 90 Tablet 4 025 Discontin ued(End of Procedure ) Allopurinol 300 MG Oral Tablet (Zyloprim)Indic ations: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 30 Tablet 5 5 025 Discontin ued(End of Procedure ) documented as of this encounter (statuses as of 01/24/2025) Active Problems Problem Noted Date Diagnosed Date Prevention of chemotherapy-induced neutropenia 0 12/31/2024 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 11/29/2024 Encounter for antineoplastic chemotherapy 2024 BREAST CANCER UNSPECIFIED,FEMALE 10/25/2008 Other iron deficiency anemia Overview (08/15/2017): ICD-10 update of inactive term Osteoporosis documented as of this encounter (statuses as of 01/24/2025) Resolved Problems Problem Noted Date Diagnosed Date Resolved Date Other iron deficiency anemia 12/19/2008 Overview (08/15/2017): Resolved per Duplicate Protocol #2. ICD-10 update of inactive term documented as of this encounter (statuses as of 01/24/2025) Social History Tobacco Use Types Packs/Day Years [...] Sign Reading Time Taken Comments Blood Pressure 120/71 12/31/2024 9:18 AM EST Pulse 90 12/31/2024 9:18 AM EST Temperature 37.2 °C (99 °F) 12/31/2024 9:18 AM EST Respiratory Rate 18 12/31/2024 9:18 AM EST Oxygen Saturation 94% 12/31/2024 9:18 AM EST Inhaled Oxygen Concentration - - Weight - - Height - - Body Mass Index - - documented in this encounter Progress Notes * Lisbeth Hutson RN - 12/31/2024 11:34 AM EST Goals: Patient will remain free from injury. Possible barriers to meeting goals: use of walker Stability of the patient: Moderately stable - low risk of patient condition declining or worsening Summary regarding today's goals: Met: Patient remained free from injury. Patient tolerated infusion well. No problems. Left in stable condition. No needs reported. documented in this encounter Nursing Notes * Lisbeth Hutson RN - 12/31/2024 11:27 AM EST Chair 7. Port accessed. No issues. CBCd drawn per protocol. Pt feeling well. No acute issues/complaints. Patient instructed on use of heat and [...] available. Provide and maintain safe environment. * Elda Aviles LPN - 12/31/2024 11:21 AM EST Patient completed IV therapy. Port line hub scrubbed with alcohol prep pad; Port line flushed with 20mL NSS with ease; positive blood return. Port line clamped for needle removal. documented in this encounter Plan of Treatment Upcoming Encounters Date Type Department Care Team (Late st Contact Info) Description 01/29/2025 7:45 AM EDT Nurse Only [address]ematology[address] [phone] Kaykay, Chair 1 Hem [place] [address] [place] [address] 01/29/2025 8:00 AM EDT Office Visit Hematology/Oncology [facility] [address] [place] [phone] Etelvnia Mo [facility] [address] [facility] [address] 01/29/2025 8:30 AM EDT Hem/Onc Treatment [address]ematology/[address] [phone] Kaykay, Chair 7 Hem Onc [address] [place] [address] 02/11/2025 12:45 PM EDT Imaging Radiology [facility] [address] [facility] [address] [place] [phone] 02/14/2025 10:00 AM EDT Office Visit Hematology/Oncology [facility] [address] [place] [phone] Logan Plummer MD [address] [place] [address] Scheduled Procedures Name Priority Associated Diagnoses Date/Ti [...] D LEVEL ONCE IN A LIFETIME-USE SMARTSET# [id number] Completed 10/25/2008 Pneumococcal Vaccine: 50+ Years Completed [...] this encounter Medical Devices Implanted Type Area Physical Education Specialist Device Identifier Shelf Expiration Date Model / Serial / Lot Power Port 8fr Sngl Lumen Plas - [id number] Implanted:Qty : 1 on 12/05/2024 by Taco Sanchez MD at OR [facility] Left: Chest CR BARD : PERIPHERAL VASCULAR [id number] 07/14/2025 [id number] / / [id number] documented as of this encounter Procedures Procedure Name Priority Date/Time Associated Diagnosis Comments DIFFERENTIAL, AUTOMATED STAT 12/31/2024 9:10 AM EST 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) CBC STAT 12/31/2024 9:10 AM EST 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) CBC STAT 12/31/2024 9:10 AM EST 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) DIFFERENTIAL, TECHNOLOGIST REVIEW Routine 12/31/2024 9:10 AM EST 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) documented in this encounter Results * (ABNORMAL) DIFFERENTIAL, TECHNOLOGIST REVIEW (12/31/2024 9:10 AM EST) WBC 1.19(L) 4.00 - 10.80 K/uL 12/31/2024 10:27 AM [facility] 56-02 Neutrophils % 4.0(L) 40.0 - 75.0 % 12/31/2024 10:27 AM [facility] 56-02 Lymphocytes % 28.0 18.0 - 42.0 % 12/31/2024 10:27 AM [facility] 56-02 Monocytes % 66.0(H) 1.0 - 11.0 % 12/31/2024 10:27 AM EST LABORATORY [facility] 56-02 Eosinophils % 2.0 0.0 - 6.0 % 12/31/2024 10:27 AM EST [facility] 56-02 Absolute Neutrophils 0.05(L) 1.80 - 7.70 K/uL 12/31/2024 10:27 AM [facility] 56-02 Absolute Lymphocytes 0.33(L) 1.00 - 4.80 K/uL 12/31/2024 10:27 AM [facility] 56-02 Absolute Monocytes 0.79 0.00 - 1.10 K/uL 12/31/2024 10:27 AM [facility] 56-02 Absolute Eosinophils 0.02 0.00 - 0.70 K/uL 12/31/2024 10:27 AM EST LABORATORY [place] 56-02 nRBCs 12/31/2024 10:27 AM [facility] [place] 56-02 Reactive Lymphocytes Present(A ) None Seen 12/31/2024 10:27 AM [facility] 56-02 Giant PLTs Present(A ) None Seen 12/31/2024 10:27 AM EST [facility] 56-02 Blood Venous blood specimen / Unknown Central Line / Unknown 12/31/2024 9:10 AM EST 12/31/2024 9:38 AM EST Logan Plummer MD LAB BLOOD ORDERABLES Final Res ult Performing Organization Address [facility]/ZIP Co de Phone Number [facility] [address] [place] [address] * DIFFERENTIAL, AUTOMATED (12/31/2024 9:10 AM EST) Blood Venous blood specimen / Unknown Central Line / Unknown 12/31/2024 9:10 AM EST 12/31/2024 9:38 AM EST Logan Plummer MD LAB BLOOD ORDERABLES Final Res ult Performing Organization Address [facility] Co de Phone Number [facility] [address] [place] [address] * (ABNORMAL) CBC (12/31/2024 9:10 AM EST) WBC 1.19(L) 4.00 - 10.80 K/uL 12/31/2024 10:27 AM [facility] 56- RBC 2.86 3.85 - 5.15 M/uL 12/31/2024 10:27 AM [facility] 56-02 HGB 7.8(L) 12.0 - 15.3 g/dL 12/31/2024 10:27 AM [facility] 56- HCT 26.3(L) 36.0 - 45.2 % 12/31/2024 10:27 AM [facility] 56-02 MCV 92.0 81.5 - 97.5 fL 12/31/2024 10:27 AM [facility] 56- MCH 27.3 27.0 - 34.0 pg 12/31/2024 10:27 AM [facility] 56-02 MCHC 29.7 32.0 - 36.0 g/dL 12/31/2024 10:27 AM [facility] 56 RDW 18.7 11.5 - 15.5 % 12/31/2024 10:27 AM EST [facility] 56- PLT 201 140 - 400 K/uL 12/31/2024 10:27 AM EST [facility] 56- MPV 9.3 6.6 - 11.1 fL 12/31/2024 10:27 AM EST [facility] 56- Blood Venous blood specimen / Unknown Central Line / Unknown 12/31/2024 9:10 AM EST 12/31/2024 9:38 AM EST us Logan Plummer MD LAB BLOOD ORDERABLES Final Res ult [facility] [address] [place], [place] [phone] documented in this encounter Visit Diagnoses Diagnosis [...] mg, IV Piggyback, ONCE, 1 dose, On Tue12/31/24 at 1100, Administer over 90 MinutesIndications: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),Other iron deficiency anemia Start Infusion 12/31/2024 9:36 AM EST 300 mg 180 mL/hr NSS infusion 500 mL, Intravenous, at 50 mL/hr, CONTINUOUS, Starting on Tue12/31/24 at 1030, Until Tue12/31/24 at 1546Indications: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),Other iron deficiency anemia Start Infusion 12/31/2024 9:34 AM EST 500 mL 50 mL/hr sodium chloride 0.9 % flush/inj 10 mL 10 mL, IV Push, PRN line flush, Starting on Tue12/31/24 at 0929, Until Tue12/31/24 at 1546, Do not flush if lock, PICC, or central line not in place; IV infusing or unable to flush. For midlines and central lines.Indications: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),Other iron deficiency anemia Given 12/31/2024 9:30 AM EST 10 mL sodium chloride 0.9 % flush/inj 20 mL 20 mL, IV Push, PRN IV Flush and Lock, Starting on Tue12/31/24 at 0929, Until Tue12/31/24 at 1546, Do not flush if lock, PICC, or central line not in place; IV infusing or unable to flush. For midlines and central lines. For IV Flush and Lock, IVAD is flushed with a total of 20 mL Normal Saline, 10 mL of Normal Saline Flush with 10 mL of Normal Saline acting as IV LOCK.Indications: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),Other iron deficiency anemia Given 12/31/2024 11:18 AM EST 20 mL documented in this encounter Care Teams Senior Librarian Relationship Specialty Start Date End Date Stephany Gilbert CRNP [address] [place] [address] [place] [id number] PCP - General Nurse Practitioner 02/02/23 documented as of this encounter
--- OUTSIDE RECORDS SUMMARY | 2025-02-26 17:09 | External Medical Summary | Summary of Care ---
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) Prevention of chemotherapy-induced neutropenia Procedures UT INJECTION, RITUXIMAB-PVVR, BIOSIMILAR, (RUXIENCE), 10 MG UT INJ CYCLOPHOSPHAMD AUROMEDIC UT BRENTUXIMAB VEDOTIN INJ UT INJECTION, Logan Person MD [address] [place] [address] [place] [address] Phone: tel: fax: Hematology/Oncology Treatment, [address] [address] Phone: tel: fax: Referral ID Status Reason Start Date Expiration Date V isits Requested Visits Authorized [id number] Authorized 11/29/2024 11/13/2099 [id number] Encounter Details Date Type Department Care Team (Latest Contact Info) Description 12/18/2024 9:00 AM EST Hem/Onc Treatment Hematology/Oncolog y [address], [address] [phone] [place]kay Chair [address] Hem On[address] [place] [address] Encounter for antineoplastic chemotherapy*; 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); Other iron deficiency anemia Allergies Active Allergy Reactions Criticality Noted Date [...] TO ACCESSING. 30 g 1 5 Active Mycophenolate Mofetil 500 MG Oral Tablet (Cellcept) Take by mouth 2 times a day. 025 Discontin ued(End of Procedure ) Allopurinol 300 MG Oral Tablet (Zyloprim)Indic ations: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 90 Tablet 4 025 Discontin ued(End of Procedure ) Acyclovir 400 MG Oral Tablet (Zovirax)Indica tions: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) Take 1 Tablet by mouth in the morning and 1 Tablet before bedtime. 60 Tablet 5 5 025 Discontin ued(Refil l) Allopurinol 300 MG Oral Tablet (Zyloprim)Indic ations:Diffuse [...] Sign Reading Time Taken Comments Blood Pressure 97/59 12/18/2024 1:57 PM EST Pulse 83 12/18/2024 1:57 PM EST Temperature 36.2 °C (97.2 °F) 12/18/2024 1:57 PM ES T Respiratory Rate 18 12/18/2024 1:57 PM EST Oxygen Saturation 94% 12/18/2024 1:57 PM EST Inhaled Oxygen Concentration - - Weight - - Height - - Body Mass Index - - documented in this encounter Nursing Notes * Oneida Rene, CLAUDIO - 12/21/2024 5:01 PM EST Error Entry for 12/18/24 1709: VAD flushed with 20 ml NSS only per protocol. Boston needle removed intact. * Oneida Rene RN - 12/18/2024 5:09 PM EST Pt completed treatment without issues. VAD flushed with 10 ml NSS and Heparin 5 ml (100 units/ml). Boston needle removed intact. Goals: Pt will remain free from injury. Possible barriers to meeting goals: risk of reaction, drowsiness due to benadryl pretreat; ambulation with IV pole Stability of the patient: Moderately stable - low risk of patient condition declining or worsening Summary regarding today's goals: Met: . Pt remained free from injury during treatment today. Discharged in stable condition. * Oneida Rene RN - 12/18/2024 10:53 AM EST CHAIR 8 Pt presents to clinic for treatment following OV with Dr. Plummer. Chemotherapy/Immunotherapy agents: Brentuximab, Rituximab, prednisone and CYTOXAN Consent for chemotherapy drug treatment complete, dated, and signed? yes, date - 11/29/24 Treatment lab parameters met? Yes Has treatment weight changed > than 10%? No Treatment preauthorized? Yes VITALS Filed Vitals: BP Readings from Last 2 Encounters: 12/18/24 121/73 12/10/24 123/61 Pulse Readings from Last 2 Encounters: 12/18/24 72 12/10/24 125 Resp Readings from Last 2 Encounters: 12/10/24 18 12/05/24 22 SpO2 Readings from Last 2 Encounters: 12/18/24 94% 12/10/24 94% Temp Readings from Last 2 Encounters: 12/18/24 (!) 39.2 °C (102.5 °F) (Tympanic) 12/10/24 37.8 °C (100 °F) Urine protein: N/A Patient education completed for treatment? Yes Blood transfusion consent signed and complete? NA Return appointment scheduled? Yes Patient had provider visit today? Yes - Ok to release order and treat per provider VAD accessed; NSS infusing. Safety and Risk for Injury Patient will remain free from injury. Ensure appropriate safety devices are available. Provide and maintain safe environment. Functional Status: Functional status at today's visit: Restricted in physically strenuous activity but ambulatory and able to carry out work on a light orsedentary nature, e.g. light house work, office work The drug name, dose, infusion volume, rate [...] potential rose while using the heat function. * Elda Aviles LPN - 12/18/2024 9:11 AM EST Patient presented with needle placement in port Chair 8. Port line flushed with 10mL NSS with ease;positive blood return. IV fluids connected and infusing. Patient administered oral medications to include 50mg Benadryl, 650mg Acetaminophen, 20mg Famotidine, and 8mg Ondansetron. documented in this encounter Plan of Treatment Upcoming Encounters Date Type Department Care Team (Late st Contact Info) Description 01/29/2025 7:45 AM EDT Nurse Only [address]ematology[address]cology [address] [phone] Kay[place], Chair 1 Hem On[address] [place] [address] 01/29/2025 8:00 AM EDT Office Visit Hematology/Oncology [address] [place] [phone] Etelvina Mo CRNP [address] [facility] [place] [id number] 01/29/2025 8:30 AM EDT Hem/Onc Treatment Hematology/Oncology [address], [address] [phone] Kaykay, Chair 7 Hem Onc [address] [place] [address] 02/11/2025 12:45 PM EDT Imaging Radiology [facility] 1st [facility], [place] [address] [place] [phone] 02/14/2025 10:00 AM EDT Office Visit Hematology/Oncology [facility] [address] [facility] [place] [phone] Logan Plummer MD [address] [facility] [place] [address] Scheduled Orders Name Type Priority Associated Diagnoses Orde r Schedule LD Lab STAT Encounter for antineoplastic chemotherapy 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) Every 3 Weeks for 25 Occurrences starting 12/18/2024 until 12/18/2025, 1 completed COMPREHENSIVE METABOLIC PANEL Lab STAT Encounter for antineoplastic chemotherapy 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) Every 3 Weeks for 25 Occurrences starting 12/18/2024 until 12/18/2025, 1 completed URIC ACID Lab STAT Encounter for antineoplastic chemotherapy 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) Every 3 Weeks for 25 Occurrences starting 12/18/2024 until 12/18/2025, 1 completed Scheduled Procedures Name Priority Associated Diagnoses Date/Ti [...] D LEVEL ONCE IN A LIFETIME-USE SMARTSET# [id number] Completed 10/25/2008 Pneumococcal Vaccine: 50+ Years Completed [...] this encounter Medical Devices Implanted Type Area Die Designer Device Identifier Shelf Expiration Date Model / Serial / Lot Power Port 8fr Sngl Lumen Plas - [id number] Implanted:Qty : 1 on 12/05/2024 by Taco Sanchez MD at [facility] Left: Chest CR BARD : PERIPHERAL VASCULAR [id number] 07/14/2025 [id number] / / [id number] documented as of this encounter Results * (ABNORMAL) URIC ACID (01/08/2025 7:36 AM EST) [facility] Uric Acid 1.9(L) 2.4 - 5.7 mg/dL 01/08/2025 2:31 PM EST LABORATORY [facility] Blood Venous blood specimen / Unknown Central Line / Unknown 01/08/2025 7:36 AM EST 01/08/2025 7:51 AM EST us Logan Plummer MD LAB BLOOD ORDERABLES Final Res ult LABORATORY [facility] [address] [place] [address] * (ABNORMAL) COMPREHENSIVE METABOLIC PANEL (01/08/2025 7:36 AM EST) [facility] BUN 8 6 - 20 mg/dL 01/08/2025 8:48 AM [facility] 56- CREATININE 0.5 0.5 - 1.0 mg/dL 01/08/2025 8:48 AM [facility] 56- EGFR >90 >=60 mL/min 01/08/2025 8:48 AM [facility] 56- Comment:eGFR is calculated b ased on the CKD-EPI 2020 equation. SODIUM 136 135 - 146 mmol/L 01/08/2025 8:48 AM [facility] 56- POTASSIUM 4.1 3.5 - 5.1 mmol/L 01/08/2025 8:48 AM [facility] 56- CHLORIDE 102 98 - 107 mmol/L 01/08/2025 8:48 AM [facility] 56- CO2 26 22 - 32 mmol/L 01/08/2025 8:48 AM [facility] 56- ANION GAP 8 7 - 15 mmol/L 01/08/2025 8:48 AM [facility] 56- GLUCOSE 95 70 - 120 mg/dL 01/08/2025 8:48 AM [facility] 56- Albumin 3.0(L) 3.8 - 5.0 g/dL 01/08/2025 8:48 AM [facility] 56- AST 23 10 - 35 U/L 01/08/2025 8:48 AM [facility] 56- Alkaline Phosphatase 116 35 - 130 U/L 01/08/2025 8:48 AM [facility] 56- Bilirubin, Total 0.2 <=1.2 mg/dL 01/08/2025 8:48 AM [facility] 56- CALCIUM 8.6 8.4 - 10.2 mg/dL 01/08/2025 8:48 AM [facility] 56- Protein 6.8 6.0 - 8.3 g/dL 01/08/2025 8:48 AM [facility] 56- ALT 20 10 - 35 U/L 01/08/2025 8:48 AM [facility] 56- Blood Venous blood specimen / Unknown Central Line / Unknown 01/08/2025 7:36 AM EST 01/08/2025 7:51 AM EST us Logan Plummer MD LAB BLOOD ORDERABLES Final Res ult [facility]ATORY [facility] [address] [place] [address] * LD (01/08/2025 7:36 AM EST) LD 217 <=250 U/L 01/08/2025 2:3 1 PM EST LAB[facility]ATORY [facility] Blood Venous blood specimen / Unknown Central Line / Unknown 01/08/2025 7:36 AM EST 01/08/2025 7:51 AM EST Logan Plummer MD LAB BLOOD ORDERABLES Final Res ult LABORATORY [facility] [address] [place] [address] documented in this encounter Visit Diagnoses Diagnosis Encounter for antineoplastic chemotherapy- Primary 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) Other iron deficiency anemia documented in this encounter Administered Medications Inactive Administered Medications - up to 3 most recent administrations Medication Order MAR Action Action Date Dose Rate Site Acetaminophen (Tylenol) tab 650 mg 650 mg, Oral, ONCE, On Tue12/18/24 at 0945, For 1 dose, Maximum of 4 grams (4000 mg) per day.Indications:Encounter for antineoplastic chemotherapy,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) Given 12/18/2024 9:20 AM EST 650 mg BRENtuximab vedotin (Adcetris) 114.3 mg in NSS 100 mL infusion 114.3 mg (1.8 mg/kg 63.5 kg Treatment plan Recorded weight), IV Piggyback, ONCE, 1 dose, On Tue12/18/24 at 1115, Administer over 30 Minutes, Max Dose 180mgIndications:Encounter for antineoplastic chemotherapy,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) Start Infusion 12/18/2024 2:55 PM EST 114.3 mg 255.72 mL/hr cycloPHOSphamide (Cytoxan) 1,280 mg in NSS 500 mL infusion 1,280 mg (rounded from 1,282.5 mg = 750 mg/m2 1.71 m2 Treatment Plan BSA from Recorded weight), IV Piggyback, ONCE, On Tue12/18/24 at 1045, For 1 dose, Cyclophosphamide doses over 1g should be in 500 mL.May extend infusion to 1 hour if not tolerated.Indications:Encou nter for antineoplastic chemotherapy,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) Start Infusion 12/18/2024 9:59 AM EST 1,280 mg 1032.8 mL/hr diphenhydrAMINE (Benadryl) cap 50 mg 50 mg, Oral, ONCE, On Tue12/18/24 at 0945, For 1 doseIndications:Encounter for antineoplastic chemotherapy,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) Given 12/18/2024 9:20 AM EST 50 mg Famotidine (Pepcid) tab 20 mg 20 mg, Oral, ONCE, On Tue12/18/24 at 0945, For 1 doseIndications:Encounter for antineoplastic chemotherapy,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) Given 12/18/2024 9:21 AM EST 20 mg Iron Sucrose (Venofer) 300 mg in NSS 250 mL ivpb 300 mg, IV Piggyback, ONCE, 1 dose, On Tue12/18/24 at 1715, Administer over 90 MinutesIndications: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),Other iron deficiency anemia Start Infusion 12/18/2024 3:34 PM EST 300 mg 180 mL/hr NSS infusion 500 mL, Intravenous, at 50 mL/hr, CONTINUOUS, Starting on Tue12/18/24 at 1045, Until Tue12/18/24 at 2044Indications:Encounter for antineoplastic chemotherapy,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) Start Infusion 12/18/2024 9:08 AM EST 500 mL 50 mL/hr ondansetron (Zofran) tab 8 mg 8 mg, Oral, ONCE, On Tue12/18/24 at 0945, For 1 doseIndications:Encounter for antineoplastic chemotherapy,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) Given 12/18/2024 9:21 AM EST 8 mg predniSONE (Deltasone) tab 100 mg 100 mg, Oral, ONCE, On Tue12/18/24 at 1000, For 1 doseIndications:Encounter for antineoplastic chemotherapy,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) Given 12/18/2024 9:40 AM EST 100 mg riTUXimab-pvvr (Ruxience) 600 mg in NSS 500 mL ivpb 600 mg (rounded from 641.25 mg = 375 mg/m2 1.71 m2 Treatment Plan BSA from Recorded weight), IV Piggyback, ONCE, 1 dose, On Tue12/18/24 at 0945, Initial Infusions: Start at an infusion rate of 50 mg/hour. If no reaction, rate may be increased by 50 mg/hour increments every 30-minutes to a maximum of 400 mg/hour. Initial Infusion Rates: 41 mL/hr for 60-minutes (VTBI = 41 mL) then increase to 82 mL/hr for 30-minutes (VTBI = 41 mL) then increase to 123 mL/hr for 30-minutes (VTBI = 61.5 mL) then increase to 164 mL/hr for 30-minutes (VTBI = 82 mL) then increase to 205 mL/hr for 30-minutes (VTBI = 102.5 mL) then increase to 246 mL/hr for 30-minutes (VTBI = 123 mL) then increase to 287 mL/hr for 30-minutes (VTBI = 143.5 mL) then increase to 325 mL/hr MaximumIndications:Encounte r for antineoplastic chemotherapy,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) Rate Change 12/18/2024 2:32 PM EST 287 mL/hr Rate Change 12/18/2024 2:00 PM EST 246 mL/hr Rate Change 12/18/2024 1:29 PM EST 205 mL/hr sodium chloride 0.9 % flush/inj 10 mL 10 mL, IV Push, PRN line flush, Starting on Tue12/18/24 at 0903, Until Tue12/18/24 at 2122, Do not flush if lock, PICC, or central line not in place; IV infusing or unable to flush. For midlines and central lines.Indications:Encounter for antineoplastic chemotherapy,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) Given 12/18/2024 9:08 AM EST 10 mL sodium chloride 0.9 % flush/inj 20 mL 20 mL, IV Push, PRN IV Flush and Lock, Starting on Tue12/18/24 at 1532, Until Tue12/18/24 at 2122, Do not flush if lock, PICC, or [...] of neck (HCC),Other iron deficiency anemia Given 12/18/2024 5:10 PM EST 20 mL documented in this encounter Care Teams Windows Systems Admin Relationship Specialty Start Date End Date Stephany Gilbert CRNP [address] [place] [address] [place] [address] PCP - General Nurse Practitioner 02/02/23 documented as of this encounter
--- OUTSIDE RECORDS SUMMARY | 2025-02-26 17:09 | External Medical Summary ---
Author Name Unknown Address Unknown Organization K09:[facility] [place] [address] Laboratory Report Ordering Provider Test Date Status ERIN FLORES 02/06/2025 07:52:03 Final Observation Date Value Abnormality Reference (Units ) Status WBC, Total 02/06/2025 07:52:03 5.29 4.00-10.8 0 (K/uL) Final RBC 02/06/2025 07:52:03 3.10 3.85-5.15 (M/uL) Final Hemoglobin 02/06/2025 07:52:03 8.7 Below low normal 12 .0-15.3 (g/dL) Final HCT 02/06/2025 07:52:03 29.0 Below low normal 36. 0-45.2 (%) Final MCV 02/06/2025 07:52:03 93.5 81.5-97.5 (fL) Final MCH 02/06/2025 07:52:03 28.1 27.0-34.0 (pg) Final MCHC 02/06/2025 07:52:03 30.0 32.0-36.0 (g/dL) Final RDW 02/06/2025 07:52:03 20.7 11.5-15.5 (%) Final Platelets 02/06/2025 07:52:03 325 140-400 (K /uL) Final MPV 02/06/2025 07:52:03 9.6 6.6-11.1 ( fL) Final Performing Location [facility] [place] [address]
--- OUTSIDE RECORDS SUMMARY | 2025-02-26 17:09 | External Medical Summary ---
Author Name Unknown Address Unknown Organization K09:[facility] [place] [address] Laboratory Report Ordering Provider Test Date Status ERIN FLORES 02/06/2025 07:52:03 Final Observation Date Value Abnormality Reference (Units ) Status SYNC LEUKOCYTES IN BLOOD BY AUTOMATED COUNT 02/06/2025 07:52:03 5.29 4.00-10.80 (K/uL) Final Neutrophils/100 leukocytes in Blood by Manual count 02/06/2025 07:52:03 15.0 Below low normal 40.0-75.0 (%) Final Lymphocytes/100 leukocytes in Blood by Manual count 02/06/2025 07:52:03 30.0 18.0-42.0 (%) Final Monocytes/100 leukocytes in Blood by Manual count 02/06/2025 07:52:03 36.0 Above high normal 1.0-11.0 (%) Final Eosinophils/100 leukocytes in Blood by Manual count 02/06/2025 07:52:03 11.0 Above high normal 0.0-6.0 (%) Final Basophils/100 leukocytes in Blood by Manual count 02/06/2025 07:52:03 1.0 0.0-2.0 (%) Final Metamyelocytes/100 leukocytes in Blood by Manual count 02/06/2025 07:52:03 4.0 Above high normal <=0.0 (%) Final Myelocytes/100 leukocytes in Blood by Manual count 02/06/2025 07:52:03 3.0 Above high normal <=0.0 (%) Final Neutrophils [#/volume] in Blood by Manual count 02/06/2025 07:52:03 0.79 Below low normal 1.80-7.70 (K/uL) Final Lymphocytes [#/volume] in Blood by Manual count 02/06/2025 07:52:03 1.59 1.00-4.80 (K/uL) Final Monocytes [#/volume] in Blood by Manual count 02/06/2025 07:52:03 1.90 Above high normal 0.00-1.10 (K/uL) Final Eosinophils [#/volume] in Blood by Manual count 02/06/2025 07:52:03 0.58 0.00-0.70 (K/uL) Final Basophils [#/volume] in Blood by Manual count 02/06/2025 07:52:03 0.05 0.00-0.20 (K/uL) Final Metamyelocytes [#/volume] in Blood by Manual count 02/06/2025 07:52:03 0.21 Above high normal <=0.00 (K/uL) Final Myelocytes [#/volume] in Blood by Manual count 02/06/2025 07:52:03 0.16 Above high normal <=0.00 (K/uL) Final Nucleated erythrocytes/100 leukocytes [Ratio] in Blood by Automated count 02/06/2025 07:52:03 1 Above high normal <=0 (/100 WBCs) Final Acanthocytes [Presence] in Blood by Light microscopy 02/06/2025 07:52:03 Moderate Abnormal None Seen Final Elliptocytes [Presence] in Blood by Light microscopy 02/06/2025 07:52:03 Moderate Abnormal None Seen Final Polychromasia [Presence] in Blood by Light microscopy 02/06/2025 07:52:03 Moderate Abnormal None Seen Final Variant lymphocytes [Presence] in Blood by Light microscopy 02/06/2025 07:52:03 Present Abnormal None Seen Final Performing Location [facility] [address] [place] [address]
--- OUTSIDE RECORDS SUMMARY | 2025-02-26 17:09 | External Medical Summary | Summary of Care ---
Author Name Unknown Organization [facility] Address [address] [facility] [place] [address] Phone [phone] Care Team Providers Care Supervisor Purification Name Role Phone Stephany Gilbert Primary Care Provider Reason for Visit * Reason Comments IV Therapy Venofer Encounter Details Date Type Department Care Team (Latest Contact Info) Description 12/25/2024 2:00 PM EST Hem/Onc Treatment Hematology/Oncology Treatment, [place] [address] [facility] [place] [address] Kaykay, Chair 2 Hem Onc [facility] 200 [place] [address] Other iron deficiency anemia*; Diffuse large B-cell [...] each cycle 10 Tablet 5 5 Active Mycophenolate Mofetil 500 MG Oral [...] Sign Reading Time Taken Comments Blood Pressure 145/75 12/25/2024 3:07 PM EST Pulse 89 12/25/2024 3:07 PM EST Temperature 36.7 °C (98.1 °F) 12/25/2024 3:07 PM ES T Respiratory Rate 16 12/25/2024 3:07 PM EST Oxygen Saturation 98% 12/25/2024 3:07 PM EST Inhaled Oxygen Concentration - - Weight - - Height - - Body Mass Index - - documented in this encounter Nursing Notes * Oneida Rene RN - 12/25/2024 4:08 PM EST Chair 3, Thuy. Aside from fatigue, pt has no acute concerns to report since treatment last week.Pt reports SOB with ambulation for longer distances; pt is currently using a walker. VAD accessed; specimen collected for ordered labs. Venofer infusing. Safety and Risk for Injury [...] potential rose while using the heat function. Pt completed treatment without issues. Port needle flushed with 10 ml NSS, blood return noted, and port locked with additional 10 ml NSS. Boston needle removed, intact, gauze dressing applied. Goals: Pt will remain free from injury. Possible barriers to meeting goals: pt is a high fall risk Stability of the patient: Moderately stable - low risk of patient condition declining or worsening Summary regarding today's goals: Met: . Pt remained free from injury during treatment today. Discharged in stable condition. documented in this encounter Plan of Treatment Upcoming Encounters Date Type Department Care Team (Late st Contact Info) Description 01/29/2025 7:45 AM EDT Nurse Only Hematology[facility], [place] [facility] [phone] Kaykay, Chair 1 Hem Onc [facility] 200 [facility] [place] [address] 01/29/2025 8:00 AM EDT Office Visit Hematology/Oncology [facility] [place] 200 [facility] [place] [phone] Etelvina Mo CRNP 400 [facility] [place] [address] 01/29/2025 8:30 AM EDT Hem/Onc Treatment Hematology/Oncology Treatment, [place] 200 [facility] [place] [phone] Kaykay, Chair 7 Hem Onc [facility] 200 [facility] [place] [address] 02/11/2025 12:45 PM EDT Imaging Radiology [facility] 1st [facility] [address] [place] [address] 02/14/2025 10:00 AM EDT Office Visit Hematology/Oncology [facility] [place] 200 [facility] [place] [phone] Logan Plummer MD 200 [facility] [place] [address] Scheduled Procedures Name Priority Associated Diagnoses Date/Ti [...] D LEVEL ONCE IN A LIFETIME-USE SMARTSET# 49133 Completed 10/25/2008 Pneumococcal Vaccine: 50+ Years Completed [...] this encounter Medical Devices Implanted Type Area Machine Coil Assembler Device Identifier Shelf Expiration Date Model / Serial / Lot Power Port 8fr Sngl Lumen Plas - [id number] Implanted:Qty : 1 on 12/05/2024 by Taco Sanchez MD at OR [facility] Left: Chest CR BARD : PERIPHERAL VASCULAR [id number] 07/14/2025 [id number] / / [id number] documented as of this encounter Procedures Procedure Name Priority Date/Time Associated Diagnosis Comments DIFFERENTIAL, AUTOMATED STAT 12/25/2024 2:41 PM EST 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) CBC STAT 12/25/2024 2:41 PM EST 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) CBC STAT 12/25/2024 2:41 PM EST 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) DIFFERENTIAL, TECHNOLOGIST REVIEW Routine 12/25/2024 2:41 PM EST 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) documented in this encounter Results * (ABNORMAL) DIFFERENTIAL, TECHNOLOGIST REVIEW (12/25/2024 2:41 PM EST) WBC 1.84(L) 4.00 - 10.80 K/uL 12/25/2024 2:54 PM EST [facility] 56-02 Neutrophils % 91.0(H) 40.0 - 75.0 % 12/25/2024 2:54 PM EST [facility] 56-02 Lymphocytes % 7.0(L) 18.0 - 42.0 % 12/25/2024 2:54 PM EST [facility] 56-02 Monocytes % 1.0 1.0 - 11.0 % 12/25/2024 2:54 PM EST [facility] 56-02 Eosinophils % 1.0 0.0 - 6.0 % 12/25/2024 2:54 PM EST [facility] 56-02 Absolute Neutrophils 1.67(L) 1.80 - 7.70 K/uL 12/25/2024 2:54 PM EST [facility] 56-02 Absolute Lymphocytes 0.13(L) 1.00 - 4.80 K/uL 12/25/2024 2:54 PM EST [facility] 56-02 Absolute Monocytes 0.02 0.00 - 1.10 K/uL 12/25/2024 2:54 PM EST [facility] 56-02 Absolute Eosinophils 0.02 0.00 - 0.70 K/uL 12/25/2024 2:54 PM EST [facility] 56-02 nRBCs 12/25/2024 2:54 PM EST [facility] 56-02 Polychromasia Moderate( A) None Seen 12/25/2024 2:54 PM EST [facility] 56-02 Blood Blood sample taken from central line / Unknown Central Line / Unknown 12/25/2024 2:41 PM EST 12/25/2024 2:44 PM EST us Logan Plummer MD LAB BLOOD ORDERABLES Final Res ult [facility] 56-02 200 [place] [address] * DIFFERENTIAL, AUTOMATED (12/25/2024 2:41 PM EST) Blood Blood sample taken from central line / Unknown Central Line / Unknown 12/25/2024 2:41 PM EST 12/25/2024 2:44 PM EST us Logan Plummer MD LAB BLOOD ORDERABLES Final Res ult [facility] 200 [place] [address] * (ABNORMAL) CBC (12/25/2024 2:41 PM EST) WBC 1.84(L) 4.00 - 10.80 K/uL 12/25/2024 2:54 PM EST [facility] 56 Comment:Results rechecked. RBC 2.80 3.85 - 5.15 M/uL 12/25/2024 2:54 PM EST [facility] 56- HGB 7.5(L) 12.0 - 15.3 g/dL 12/25/2024 2:54 PM EST [facility] 56 HCT 24.7(L) 36.0 - 45.2 % 12/25/2024 2:54 PM EST [facility] 56 MCV 88.2 81.5 - 97.5 fL 12/25/2024 2:54 PM EST [facility] 56- MCH 26.8 27.0 - 34.0 pg 12/25/2024 2:54 PM EST [facility] 56- MCHC 30.4 32.0 - 36.0 g/dL 12/25/2024 2:54 PM EST [facility] 56 RDW 16.5 11.5 - 15.5 % 12/25/2024 2:54 PM EST [facility] 56 PLT 334 140 - 400 K/uL 12/25/2024 2:54 PM EST [facility] 56 MPV 8.8 6.6 - 11.1 fL 12/25/2024 2:54 PM EST [facility] 56 Blood Blood sample taken from central line / Unknown Central Line / Unknown 12/25/2024 2:41 PM EST 12/25/2024 2:44 PM EST Logan Plummer MD LAB BLOOD ORDERABLES Final Res ult [facility] [address] [place] [address] documented in this encounter Visit Diagnoses Diagnosis [...] mg, IV Piggyback, ONCE, 1 dose, On Tue12/25/24 at 1615, Administer over 90 MinutesIndications:Other iron deficiency anemia,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) Start Infusion 12/25/2024 2:40 PM EST 300 mg 180 mL/hr NSS infusion 500 mL, Intravenous, at 50 mL/hr, CONTINUOUS, Starting on Tue12/25/24 at 1545, Until Tue12/25/24 at 2047Indications:Other iron deficiency anemia,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 For midlines and central lines. For IV Flush and Lock, IVAD is flushed with a total of 20 mL Normal Saline, 10 mL of Normal Saline Flush with 10 mL of Normal Saline acting as IV LOCK.Indications:Other iron deficiency anemia,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) Given 12/25/2024 4:24 PM EST 20 mL documented in this encounter Care Teams Supervisor Purification Relationship Specialty Start Date End Date Stephany Gilbert CRNP [address] [place] [address] [place] [address] PCP - General Nurse Practitioner 02/02/23 documented as of this encounter
--- OUTSIDE RECORDS SUMMARY | 2025-02-26 17:10 | External Medical Summary | Summary of Care ---
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) Prevention of chemotherapy-induced neutropenia Procedures NV INJECTION, RITUXIMAB-PVVR, BIOSIMILAR, (RUXIENCE), 10 MG NV INJ CYCLOPHOSPHAMD AUROMEDIC NV BRENTUXIMAB VEDOTIN INJ NV INJECTION, Logan Person MD [address] [place] [address] [place] [address] Phone: tel: fax: Hematology/Oncology Treatment, [address] [address] Phone: tel: fax: Referral ID Status Reason Start Date Expiration Date V isits Requested Visits Authorized [id number] Authorized 11/29/2024 11/13/[phone] Encounter Details Date Type Department Care Team (Latest Contact Info) Description 12/18/2024 9:00 AM EST Hem/Onc Treatment Hematology/[address]olog [address], [address] [phone] Kaykay Chair 8 Hem Onc [address] [place] [address] Encounter for antineoplastic chemotherapy*; Diffuse large [...] 01/29/2025 7:45 AM EDT Nurse Only Hematology/[address]cology [address] [phone] Kaykay, Chair 1 Hem Onc [address] [place] [address] 01/29/2025 8:00 AM EDT Office Visit Hematology/Oncology [address] [place] [phone] Etelvina Mo CRNP 400 [facility] [place] [phone] 01/29/2025 8:30 AM EDT Hem/Onc Treatment Hematology/[address]cology [address], [address] [phone] Kaykay, Chair 7 Hem Onc [address] [place] [address] 02/11/2025 12:45 PM EDT Imaging Radiology [facility] 1st [facility] [place] [address] [place] [address] 02/14/2025 10:00 AM EDT Office Visit Hematology/Oncology [facility] 200 [facility] [place] [phone] Logan Plummer MD 200 [facility] [place] [address] Scheduled Orders Name Type Priority Associated Diagnoses [...] D LEVEL ONCE IN A LIFETIME-USE SMARTSET# [id number] Completed 10/25/2008 Pneumococcal Vaccine: 50+ Years Completed [...] this encounter Medical Devices Implanted Type Area Instrument Technician Apprentice Device Identifier Shelf Expiration Date Model / Serial / Lot Power Port 8fr Sngl Lumen Plas - [id number] Implanted:Qty : 1 on 12/05/2024 by Taco Sanchez MD at [facility] Left: Chest CR BARD : PERIPHERAL VASCULAR [id number] 07/14/2025 [id number] / / [id number] documented as of this encounter Results * (ABNORMAL) URIC ACID (01/08/2025 7:36 AM EST) [facility] Uric Acid 1.9(L) 2.4 - 5.7 mg/dL 01/08/2025 2:31 PM EST [facility] Blood Venous blood specimen / Unknown Central Line / Unknown 01/08/2025 7:36 AM EST 01/08/2025 7:51 AM EST us Logan Plummer MD LAB BLOOD ORDERABLES Final Res ult [facility] [address] [place] [address] * (ABNORMAL) COMPREHENSIVE METABOLIC PANEL (01/08/2025 7:36 AM EST) [facility] BUN 8 6 - 20 mg/dL 01/08/2025 8:48 AM [facility] 56- CREATININE 0.5 0.5 - 1.0 mg/dL 01/08/2025 8:48 AM [facility] 56- EGFR >90 >=60 mL/min 01/08/2025 8:48 AM [facility] 56- Comment:eGFR is calculated b ased on the CKD-EPI 2020 equation. SODIUM 136 135 - 146 mmol/L 01/08/2025 8:48 AM [facility] 56- POTASSIUM 4.1 3.5 - 5.1 mmol/L 01/08/2025 8:48 AM [facility] 56- CHLORIDE 102 98 - 107 mmol/L 01/08/2025 8:48 AM [facility] 56- CO2 26 22 - 32 mmol/L 01/08/2025 8:48 AM [facility] 56- ANION GAP 8 7 - 15 mmol/L 01/08/2025 8:48 AM [facility] 56- GLUCOSE 95 70 - 120 mg/dL 01/08/2025 8:48 AM [facility] 56- Albumin 3.0(L) 3.8 - 5.0 g/dL 01/08/2025 8:48 AM [facility] 56- AST 23 10 - 35 U/L 01/08/2025 8:48 AM [facility] 56- Alkaline Phosphatase 116 35 - 130 U/L 01/08/2025 8:48 AM [facility] 56- Bilirubin, Total 0.2 <=1.2 mg/dL 01/08/2025 8:48 AM [facility] 56- CALCIUM 8.6 8.4 - 10.2 mg/dL 01/08/2025 8:48 AM [facility] 56- Protein 6.8 6.0 - 8.3 g/dL 01/08/2025 8:48 AM [facility] 56- ALT 20 10 - 35 U/L 01/08/2025 8:48 AM [facility] 56- Blood Venous blood specimen / Unknown Central Line / Unknown 01/08/2025 7:36 AM EST 01/08/2025 7:51 AM EST us Logan Plummer MD LAB BLOOD ORDERABLES Final Res ult [facility] 56-[address] [place] [address] * LD (01/08/2025 7:36 AM EST) LD 217 <=250 U/L 01/08/2025 2:3 1 PM EST [facility] Blood Venous blood specimen / Unknown Central Line / Unknown 01/08/2025 7:36 AM EST 01/08/2025 7:51 AM EST Logan Plummer MD LAB BLOOD ORDERABLES Final Res ult [facility] [address] [place] [address] documented in this encounter Visit Diagnoses Diagnosis [...] mL documented in this encounter Care Teams Office Assistant Receptionist Relationship Specialty Start Date End Date Stephany Gilbert CRNP [address] [place] [address] [place] [address] PCP - General Nurse Practitioner 02/02/23 documented as of this encounter
--- OUTSIDE RECORDS SUMMARY | 2025-02-26 17:10 | External Medical Summary | Summary of Care ---
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) Prevention of chemotherapy-induced neutropenia Procedures MD INJECTION, RITUXIMAB-PVVR, BIOSIMILAR, (RUXIENCE), 10 MG MD INJ CYCLOPHOSPHAMD AUROMEDIC MD BRENTUXIMAB VEDOTIN INJ MD INJECTION, Logan Person MD [address] [place] [address] [place] [address] Phone: tel: fax: Hematology/Oncology Treatment, [address] [address] Phone: tel: fax: Referral ID Status Reason Start Date Expiration Date V isits Requested Visits Authorized [id number] Authorized 11/29/2024 11/13/[phone] Encounter Details Date Type Department Care Team (Latest Contact Info) Description 12/18/2024 9:00 AM EST Hem/Onc Treatment Hematology/Oncolog y [address], [address] [phone] Kaykay Chair 8 Hem Onc [address] [place] [address] Encounter for antineoplastic chemotherapy*; Diffuse large [...] rose while using the heat function. * Elad Aviles LPN - 12/18/2024 9:11 AM EST [...] 01/29/2025 7:45 AM EDT Nurse Only Hematology/Oncology [address] [phone] Kaykay, Chair 1 Hem Onc [address] [place] [address] 01/29/2025 8:00 AM EDT Office Visit Hematology/Oncology [address] [place] [phone] Etelvina Mo CRNP 400 [facility] [place] [phone] 01/29/2025 8:30 AM EDT Hem/Onc Treatment Hematology/Oncology [address], [address] [phone] Kaykay, Chair 7 Hem Onc [address] [place] [address] 02/11/2025 12:45 PM EDT Imaging Radiology [facility] 1st [facility] [place] [address] [place] [address] 02/14/2025 10:00 AM EDT Office Visit Hematology/Oncology [facility] 200 [facility] [place] [phone] Logan Plummer MD 200 [facility] [place] [address] Scheduled Orders Name Type Priority Associated Diagnoses [...] D LEVEL ONCE IN A LIFETIME-USE SMARTSET# [id number] Completed 10/25/2008 Pneumococcal Vaccine: 50+ Years Completed [...] this encounter Medical Devices Implanted Type Area C Web Developer Device Identifier Shelf Expiration Date Model / Serial / Lot Power Port 8fr Sngl Lumen Plas - [id number] Implanted:Qty : 1 on 12/05/2024 by Taco Sanchez MD at [facility] Left: Chest CR BARD : PERIPHERAL VASCULAR [id number] 07/14/2025 [id number] / / [id number] documented as of this encounter Results * (ABNORMAL) URIC ACID (01/08/2025 7:36 AM EST) [facility] Uric Acid 1.9(L) 2.4 - 5.7 mg/dL 01/08/2025 2:31 PM EST [facility] Blood Venous blood specimen / Unknown Central Line / Unknown 01/08/2025 7:36 AM EST 01/08/2025 7:51 AM EST us Logan Plummer MD LAB BLOOD ORDERABLES Final Res ult [facility] [address] [place] [address] * (ABNORMAL) COMPREHENSIVE METABOLIC PANEL (01/08/2025 7:36 AM EST) [facility] BUN 8 6 - 20 mg/dL 01/08/2025 8:48 AM [facility] 56- CREATININE 0.5 0.5 - 1.0 mg/dL 01/08/2025 8:48 AM [facility] 56- EGFR >90 >=60 mL/min 01/08/2025 8:48 AM [facility] 56- Comment:eGFR is calculated b ased on the CKD-EPI 2020 equation. SODIUM 136 135 - 146 mmol/L 01/08/2025 8:48 AM [facility] 56- POTASSIUM 4.1 3.5 - 5.1 mmol/L 01/08/2025 8:48 AM [facility] 56- CHLORIDE 102 98 - 107 mmol/L 01/08/2025 8:48 AM [facility] 56- CO2 26 22 - 32 mmol/L 01/08/2025 8:48 AM [facility] 56- ANION GAP 8 7 - 15 mmol/L 01/08/2025 8:48 AM [facility] 56- GLUCOSE 95 70 - 120 mg/dL 01/08/2025 8:48 AM [facility] 56- Albumin 3.0(L) 3.8 - 5.0 g/dL 01/08/2025 8:48 AM [facility] 56- AST 23 10 - 35 U/L 01/08/2025 8:48 AM [facility] 56- Alkaline Phosphatase 116 35 - 130 U/L 01/08/2025 8:48 AM [facility] 56- Bilirubin, Total 0.2 <=1.2 mg/dL 01/08/2025 8:48 AM [facility] 56- CALCIUM 8.6 8.4 - 10.2 mg/dL 01/08/2025 8:48 AM [facility] 56- Protein 6.8 6.0 - 8.3 g/dL 01/08/2025 8:48 AM [facility] 56- ALT 20 10 - 35 U/L 01/08/2025 8:48 AM [facility] 56- Blood Venous blood specimen / Unknown Central Line / Unknown 01/08/2025 7:36 AM EST 01/08/2025 7:51 AM EST us Logan Plummer MD LAB BLOOD ORDERABLES Final Res ult [facility] 56-[address] [place] [address] * LD (01/08/2025 7:36 AM EST) LD 217 <=250 U/L 01/08/2025 2:3 1 PM EST [facility] Blood Venous blood specimen / Unknown Central Line / Unknown 01/08/2025 7:36 AM EST 01/08/2025 7:51 AM EST Logan Plummer MD LAB BLOOD ORDERABLES Final Res ult [facility] [address] [place] [address] documented in this encounter Visit Diagnoses Diagnosis [...] mL documented in this encounter Care Teams Seasonal Package Handler Relationship Specialty Start Date End Date Stephany Gilbert CRNP [address] [place] [address] [place] [address] PCP - General Nurse Practitioner 02/02/23 documented as of this encounter
--- OUTSIDE RECORDS SUMMARY | 2025-02-26 17:10 | External Medical Summary | Summary of Care ---
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) Prevention of chemotherapy-induced neutropenia Procedures [place] INJECTION, RITUXIMAB-PVVR, BIOSIMILAR, (RUXIENCE), 10 MG [place] INJ CYCLOPHOSPHAMD [facility] [place] BRENTUXIMAB VEDOTIN INJ [place] INJECTION, Logan Person MD [address] [place] [address] Phone: tel: fax: Hematology/Oncology Treatment, [address] [address] Phone: tel: fax: Referral ID Status Reason Start Date Expiration Date V isits Requested Visits Authorized [id number] Authorized 11/29/2024 11/13/2099 [id number] Encounter Details Date Type Department Care Team (Latest Contact Info) Description 01/08/2025 8:30 AM EST Hem/Onc Treatment Hematology/Oncolog y Treatment, [address] [place] [phone] Kaykay, Chair 9 Hem Onc Scenery [address] [place] [address] Prevention of chemotherapy-induced neutropenia*; 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 Patient tolerated well. No complaints. Port needle flushed with 10 ml NSS, blood return noted, and port locked with additional 10 ml NSS. Boston needle removed, intact, gauze dressing applied. Goals: Patient will remain free from injury. Possible barriers to meeting goals: ambulating with walker/IV pole Stability of the patient: Moderately stable - low risk of patient condition declining or worsening Summary regarding today's goals: Met: Patient remained free from harm/injury during treatment. Patient left facility in stable condition. * Eusebia Swain, RN - 01/08/2025 9:10 AM EST Chair 9, patient here for treatment following provider appointment. Labs reviewed. Patient with no complaints. Port was accessed earlier this AM for labs. + blood return, flushes easily. Dressing intact. Chemotherapy/Immunotherapy agents: Brentuximab, CYTOXAN, and RITUXIMAB Consent for chemotherapy drug treatment complete, dated, and signed? yes, date - 11/29/24 Treatment lab parameters met? Yes Has treatment weight changed > than 10%? No Treatment preauthorized? Yes VITALS Filed Vitals: BP Readings from Last 2 Encounters: 01/08/25 109/69 12/31/24 120/71 Pulse Readings from Last 2 Encounters: 01/08/25 98 12/31/24 90 Resp Readings from Last 2 Encounters: 01/08/25 16 12/31/24 18 SpO2 Readings from Last 2 Encounters: 01/08/25 98% 12/31/24 94% Temp Readings from Last 2 Encounters: 01/08/25 36.7 °C (98.1 °F) (Tympanic) 12/31/24 37.2 °C (99 °F) (Tympanic) Urine protein: N/A Patient education [...] available. Provide and maintain safe environment. * Reema Sherwood RN - 01/08/2025 7:50 AM EST Patient requested labs be drawn from port. Port needle flushed with 10 ml NSS, blood return noted and labs drawn and port locked with additional 10 ml NSS. Port locked and capped. Patient discharged to waiting room for provider appointment. documented in this encounter Plan of Treatment Upcoming Encounters Date Type Department Care Team (Late st Contact Info) Description 01/29/2025 7:45 AM EDT Nurse Only Hematology[address] [phone] Kaykay, Chair 1 Hem Onc [address] [place] [address] 01/29/2025 8:00 AM EDT Office Visit Hematology/Oncology [facility] [address] [place] [phone] Etelvina Mo [facility] [address] [facility] [address] 01/29/2025 8:30 AM EDT Hem/Onc Treatment Hematology/Oncology Treatment, [address] [place] [phone] Kaykay, Chair 7 Hem [address]c [address] [place] [address] 02/11/2025 12:45 PM EDT Imaging Radiology [address], [place] [address] [place] [phone] 02/14/2025 10:00 AM EDT Office Visit Hematology/Oncology [facility] [place] [address] [place] [phone] Logan [facility]ummer MD [address] [facility] [place] [address] Scheduled Procedures Name Priority Associated Diagnoses Date/Ti [...] D LEVEL ONCE IN A LIFETIME-USE SMARTSET# [id number] Completed 10/25/2008 Pneumococcal Vaccine: 50+ Years Completed [...] this encounter Medical Devices Implanted Type Area Manager Of Software Development Device Identifier Shelf Expiration Date Model / Serial / Lot Power Port 8fr Sngl Lumen Plas - [id number] Implanted:Qty : 1 on 12/05/2024 by Taco Sanchez MD at OR 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) Iron deficiency anemia, unspecified iron deficiency anemia type CBC STAT 01/08/2025 7:36 AM EST 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) LD STAT 01/08/2025 7:36 AM EST Encounter for antineoplastic chemotherapy 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) CBC STAT 01/08/2025 7:36 AM EST 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) DIFFERENTIAL, TECHNOLOGIST REVIEW Routine 01/08/2025 7:36 AM EST 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 The above reference interval is based on pre-menopausal women. Blood Venous blood specimen / Unknown Central Line / Unknown 01/08/2025 7:36 AM EST 01/08/2025 7:51 AM EST us Logan Plummer MD LAB BLOOD ORDERABLES Final Res ult [facility] [address] [place] [address] * (ABNORMAL) IRON SCREEN, INCLUDING TIBC (01/08/2025 7:36 AM EST) Pathologist [facility] [place] Iron 36 33 - 151 ug/dL 01/08/2025 2:31 PM EST [facility] Iron Binding Capacity 169(L) 250 - 425 ug/dL 01/08/2025 2:31 PM EST [facility] Transferrin Saturation Percent 21 15 - 55 % 01/08/2025 2:31 PM EST [facility] Blood Venous blood specimen / Unknown Central Line / Unknown 01/08/2025 7:36 AM EST 01/08/2025 7:51 AM EST us Logan Plummer MD LAB BLOOD ORDERABLES Final Res ult [facility] [address] [place] [address] * (ABNORMAL) DIFFERENTIAL, TECHNOLOGIST REVIEW (01/08/2025 7:36 AM EST) [facility] WBC 11.34(H) 4.00 - 10.80 K/uL 01/08/2025 8:13 AM EST [facility] 56-02 Neutrophils % 73.0 40.0 - 75.0 % 01/08/2025 8:13 AM EST [facility] 56-02 Lymphocytes % 8.0(L) 18.0 - 42.0 % 01/08/2025 8:13 AM EST [facility] 56-02 Monocytes % 16.0(H) 1.0 - 11.0 % 01/08/2025 8:13 AM EST [facility] 56-02 Metamyelocytes % 3.0(H) <=0.0 % 01/08/20 8:13 AM EST [facility] 56-02 Absolute Neutrophils 8.28(H) 1.80 - 7.70 K/uL 01/08/2025 8:13 AM EST [facility] 56-02 Absolute Lymphocytes 0.91(L) 1.00 - 4.80 K/uL 01/08/2025 8:13 AM EST [facility] 56-02 Absolute Monocytes 1.81(H) 0.00 - 1.10 K/uL 01/08/2025 8:13 AM EST [facility] 56 Absolute Metamyelocytes 0.34(H) <=0.00 K/uL 01/08/2025 8:13 AM EST [facility] 56- nRBCs 01/08/2025 8:13 AM EST [facility] 56- Elliptocytes Moderate( A) None Seen 01/08/2025 8:13 AM EST [facility] Polychromasia Moderate( A) None Seen 01/08/2025 8:13 AM EST [facility] 56 Blood Venous blood specimen / Unknown Central Line / Unknown 01/08/2025 7:36 AM EST 01/08/2025 7:51 AM EST us Logan Plummer MD LAB BLOOD ORDERABLES Final Res ult [facility] [address] [place] [address] * DIFFERENTIAL, AUTOMATED (01/08/2025 7:36 AM EST) Blood Venous blood specimen / Unknown Central Line / Unknown 01/08/2025 7:36 AM EST 01/08/2025 7:51 AM EST us Logan Plummer MD LAB BLOOD ORDERABLES Final Res ult [facility] [address] [place] [id number] * (ABNORMAL) CBC (01/08/2025 7:36 AM EST) WBC 11.34(H) 4.00 - 10.80 K/uL 01/08/2025 8:13 AM EST [facility] RBC 3.12 3.85 - 5.15 M/uL 01/08/2025 8:13 AM EST [facility] HGB 8.6(L) 12.0 - 15.3 g/dL 01/08/2025 8:13 AM EST [facility] HCT 29.0(L) 36.0 - 45.2 % 01/08/2025 8:13 AM [facility] 56- MCV 92.9 81.5 - 97.5 fL 01/08/2025 8:13 AM [facility] 56- MCH 27.6 27.0 - 34.0 pg 01/08/2025 8:13 AM [facility] 56- MCHC 29.7 32.0 - 36.0 g/dL 01/08/2025 8:13 AM [facility] 56- RDW 18.8 11.5 - 15.5 % 01/08/2025 8:13 AM [facility] 56- PLT 483(H) 140 - 400 K/uL 01/08/2025 8:13 AM [facility] 56- MPV 8.4 6.6 - 11.1 fL 01/08/2025 8:13 AM [facility] 56- Blood Venous blood specimen / Unknown Central Line / Unknown 01/08/2025 7:36 AM EST 01/08/2025 7:51 AM EST Logan Plummer MD LAB BLOOD ORDERABLES Final Res ult [facility] 56-02 [address] [place] [address] * (ABNORMAL) URIC ACID (01/08/2025 7:36 AM EST) Uric Acid 1.9(L) 2.4 - 5.7 mg/dL 01/08/2025 2:31 PM EST [facility] Blood Venous blood specimen / Unknown Central Line / Unknown 01/08/2025 7:36 AM EST 01/08/2025 7:51 AM EST Logan Plummer MD LAB BLOOD ORDERABLES Final Res ult [facility] [address] [place] [address] * (ABNORMAL) COMPREHENSIVE METABOLIC PANEL (01/08/2025 7:36 AM EST) BUN 8 6 - 20 mg/dL 01/08/2025 8:48 AM [facility] 56- CREATININE 0.5 0.5 - 1.0 mg/dL 01/08/2025 8:48 AM [facility] 56- EGFR >90 >=60 mL/min 01/08/2025 8:48 AM [facility] 56- Comment:eGFR is calculated b ased on the CKD-EPI 2020 equation. SODIUM 136 135 - 146 mmol/L 01/08/2025 8:48 AM [facility] 56- POTASSIUM 4.1 3.5 - 5.1 mmol/L 01/08/2025 8:48 AM [facility] 56- CHLORIDE 102 98 - 107 mmol/L 01/08/2025 8:48 AM [facility] 56- CO2 26 22 - 32 mmol/L 01/08/2025 8:48 AM [facility] 56- ANION GAP 8 7 - 15 mmol/L 01/08/2025 8:48 AM [facility] 56- GLUCOSE 95 70 - 120 mg/dL 01/08/2025 8:48 AM [facility] 56- Albumin 3.0(L) 3.8 - 5.0 g/dL 01/08/2025 8:48 AM [facility] 56- AST 23 10 - 35 U/L 01/08/2025 8:48 AM [facility] 56- Alkaline Phosphatase 116 35 - 130 U/L 01/08/2025 8:48 AM [facility] 56- Bilirubin, Total 0.2 <=1.2 mg/dL 01/08/2025 8:48 AM [facility] 56- CALCIUM 8.6 8.4 - 10.2 mg/dL 01/08/2025 8:48 AM [facility] 56- Protein 6.8 6.0 - 8.3 g/dL 01/08/2025 8:48 AM [facility] 56- ALT 20 10 - 35 U/L 01/08/2025 8:48 AM [facility] 56- Blood Venous blood specimen / Unknown Central Line / Unknown 01/08/2025 7:36 AM EST 01/08/2025 7:51 AM EST us Logan Plummer MD LAB BLOOD ORDERABLES Final Res ult [facility] [address] [place] [address] * LD (01/08/2025 7:36 AM EST) LD 217 <=250 U/L 01/08/2025 2:3 1 PM EST [facility] [place] Venous blood specimen / Unknown Central Line / Unknown 01/08/2025 7:36 AM EST 01/08/2025 7:51 AM EST us Logan Plummer MD LAB BLOOD ORDERABLES Final Res ult [facility] [address] [place] [address] documented in this encounter Visit Diagnoses Diagnosis Prevention of chemotherapy-induced neutropenia- Primary 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) Encounter for antineoplastic chemotherapy Iron deficiency anemia, unspecified iron deficiency anemia type documented in this encounter Administered Medications Inactive Administered Medications - up to 3 most recent administrations Medication Order MAR Action Action Date Dose Rate Site Acetaminophen (Tylenol) tab 650 mg 650 mg, Oral, ONCE, On Tue01/08/25 at 0930, For 1 dose, Maximum of 4 grams (4000 mg) per day.Indications: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),Encounter for antineoplastic chemotherapy,Prevention of chemotherapy-induced neutropenia Given 01/08/2025 9:03 AM EST 650 mg BRENtuximab vedotin (Adcetris) 114.3 mg in NSS 100 mL infusion 114.3 mg (1.8 mg/kg 63.5 kg Treatment plan Recorded weight), IV Piggyback, ONCE, 1 dose, On Tue01/08/25 at 1100, Administer over 30 Minutes, Max Dose 180mgIndications: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),Encounter for antineoplastic chemotherapy,Prevention of chemotherapy-induced neutropenia Start Infusion 01/08/2025 1:23 PM EST 114.3 mg 255.72 mL/hr cycloPHOSphamide (Cytoxan) 1,280 mg in NSS 500 mL infusion 1,280 mg (rounded from 1,282.5 mg = 750 mg/m2 1.71 m2 Treatment Plan BSA from Recorded weight), IV Piggyback, ONCE, On Tue01/08/25 at 1030, For 1 dose, Cyclophosphamide doses over 1g should be in 500 mL.May extend infusion to 1 hour if not tolerated.Indications:Diffu se 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),Encounter for antineoplastic chemotherapy,Prevention of chemotherapy-induced neutropenia Start Infusion 01/08/2025 9:38 AM EST 1,280 mg 1032.8 mL/hr diphenhydrAMINE (Benadryl) cap 50 mg 50 mg, Oral, ONCE, On Tue01/08/25 at 0930, For 1 doseIndications: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),Encounter for antineoplastic chemotherapy,Prevention of chemotherapy-induced neutropenia Given 01/08/2025 9:02 AM EST 50 mg Famotidine (Pepcid) tab 20 mg 20 mg, Oral, ONCE, On Tue01/08/25 at 0930, For 1 doseIndications: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),Encounter for antineoplastic chemotherapy,Prevention of chemotherapy-induced neutropenia Given 01/08/2025 9:02 AM EST 20 mg NSS infusion 500 mL, Intravenous, at 50 mL/hr, CONTINUOUS, Starting on Tue01/08/25 at 1030, Until Tue01/08/25 at 1851Indications: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),Encounter for antineoplastic chemotherapy,Prevention of chemotherapy-induced neutropenia Start Infusion 01/08/2025 8:58 AM EST 500 mL 50 mL/hr ondansetron (Zofran) tab 8 mg 8 mg, Oral, ONCE, On Tue01/08/25 at 0930, For 1 doseIndications: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),Encounter for antineoplastic chemotherapy,Prevention of chemotherapy-induced neutropenia Given 01/08/2025 9:03 AM EST 8 mg riTUXimab-pvvr (Ruxience) 600 mg in NSS 500 mL ivpb 600 mg (rounded from 641.25 mg = 375 mg/m2 1.71 m2 Treatment Plan BSA from Recorded weight), IV Piggyback, ONCE, 1 dose, On Tue01/08/25 at 0930, Subsequent Infusions: Start at an infusion rate of 100 mg/hour. If no reaction, rate may be increased by 100 mg/hour increments every 30-minutes to a maximum of 400 mg/hour. Subsequent Infusion Rates: 82 mL/hr for 60-minutes (VTBI = 82 mL) then increase to 164 mL/hr for 30-minutes (VTBI = 82 mL) then increase to 246 mL/hr for 30-minutes (VTBI = 123 mL) then increase to 325 mL/hr MaximumIndications: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),Encounter for antineoplastic chemotherapy,Prevention of chemotherapy-induced neutropenia Rate Change 01/08/2025 12:29 PM EST 325 mL/hr Rate Change 01/08/2025 11:49 AM EST 246 mL/hr Rate Change 01/08/2025 11:16 AM EST 164 mL/hr sodium chloride 0.9 % flush/inj 20 mL 20 mL, IV Push, PRN IV Flush and Lock, Starting on Tue01/08/25 at 0853, Until Tue01/08/25 at 1851, Do not flush if lock, PICC, or [...] of lymph nodes of neck (HCC),Encounter for antineoplastic chemotherapy,Prevention of chemotherapy-induced neutropenia Given 01/08/2025 2:03 PM EST 20 mL documented in this encounter Care Teams Pool Table Operator Relationship Specialty Start Date End Date Stephany Gilbert CRNP [address] [place] [address] [place] [address] PCP - General Nurse Practitioner 02/02/23 documented as of this encounter
--- OUTSIDE RECORDS SUMMARY | 2025-02-26 17:10 | External Medical Summary | Summary of Care ---
Author Name Unknown Organization [facility] Address [address] [facility] [address] Phone [phone] Care Team Providers Care Loadmaster Name Role Phone Stephany Gilbert Primary Care [...] VEDOTIN INJ MD INJECTION, Logan Person MD 200 [facility] [place] [address] Phone: tel: fax: Hematology/Oncology Treatment, [address] [address] Phone: tel: fax: Referral ID Status Reason Start Date Expiration Date V isits Requested Visits Authorized [id number] Authorized 11/29/2024 11/13/[phone] Encounter Details Date Type Department Care Team (Latest Contact Info) Description 01/08/2025 8:30 AM EST Hem/Onc Treatment Hematology/Oncolog y Treatment, [address] [place] [address] Kaykay, Chair 9 Hem Onc Scenery [address] [place] [address] Prevention of chemotherapy-induced neutropenia*; Diffuse large B-cell [...] 7:45 AM EDT Nurse Only Hematology/Oncology Treatment, [address] [phone] Kaykay, Chair 1 Hem Onc [address] [place] [address] 01/29/2025 8:00 AM EDT Office Visit Hematology/Oncology [facility] [address] [place] [phone] Etelvina Mo CRNP 400 [facility] [address] 01/29/2025 8:30 AM EDT Hem/Onc Treatment Hematology/Oncology Treatment, [address] [place] [phone] Kaykay, Chair 7 Hem [address]c [address] [place] [address] 02/11/2025 12:45 PM EDT Imaging Radiology [address], [place] [address] [place] [phone] 02/14/2025 10:00 AM EDT Office Visit Hematology/Oncology [facility] [place] [address] [place] [phone] Logan Plummer MD 200 [facility] [place] [address] Scheduled Procedures Name Priority Associated Diagnoses Date/Ti [...] D LEVEL ONCE IN A LIFETIME-USE SMARTSET# 40254 Completed 10/25/2008 Pneumococcal Vaccine: 50+ Years Completed [...] this encounter Medical Devices Implanted Type Area Boilermaker Pipe Fitter Device Identifier Shelf Expiration Date Model / Serial / Lot Power Port 8fr Sngl Lumen Plas - [id number] Implanted:Qty : 1 on 12/05/2024 by Taco Sanchez MD at OR [facility] Left: Chest CR BARD : PERIPHERAL VASCULAR [id number] 07/14/2025 [id number] / / [id number] documented as of this encounter Procedures Procedure [...] 150 ng/mL 01/08/2025 3:29 PM EST [facility] Comment:Postmenopausal women have higher ferritin levels than pre-menopausal women. The above reference interval is based on pre-menopausal women. Blood Venous blood specimen / Unknown Central Line / Unknown 01/08/2025 7:36 AM EST 01/08/2025 7:51 AM EST us Logan Plummer MD LAB BLOOD ORDERABLES Final Res ult [facility] [address] [place] [address] * (ABNORMAL) IRON SCREEN, INCLUDING TIBC (01/08/2025 7:36 AM EST) Pathologist [facility] Iron 36 33 - 151 ug/dL 01/08/2025 [...] LAB BLOOD ORDERABLES Final Res ult [facility] [address] [place] [address] * (ABNORMAL) DIFFERENTIAL, TECHNOLOGIST REVIEW (01/08/2025 7:36 AM EST) [facility] WBC 11.34(H) 4.00 - 10.80 K/uL 01/08/2025 8:13 AM EST [facility] 56-02 Neutrophils % 73.0 40.0 - 75.0 % 01/08/2025 8:13 AM EST [facility] 56-02 Lymphocytes % 8.0(L) 18.0 - 42.0 % 01/08/2025 8:13 AM EST [facility] 56-02 Monocytes % 16.0(H) 1.0 - 11.0 % 01/08/2025 8:13 AM EST [facility] 56-02 Metamyelocytes % 3.0(H) <=0.0 % 01/08/20 8:13 AM EST [facility] 56-02 Absolute Neutrophils 8.28(H) 1.80 - 7.70 K/uL 01/08/2025 8:13 AM EST [facility] 56-02 Absolute Lymphocytes 0.91(L) 1.00 - 4.80 K/uL 01/08/2025 8:13 AM EST [facility] 56-02 Absolute Monocytes 1.81(H) 0.00 - 1.10 K/uL 01/08/2025 8:13 AM EST [facility] 56 Absolute Metamyelocytes 0.34(H) <=0.00 K/uL 01/08/2025 8:13 AM EST [facility] 56- nRBCs 01/08/2025 8:13 AM EST [facility] 56- Elliptocytes Moderate( A) None Seen 01/08/2025 8:13 AM EST [facility] Polychromasia Moderate( A) None Seen 01/08/2025 8:13 AM EST [facility] 56 Blood Venous blood specimen / Unknown Central Line / Unknown 01/08/2025 7:36 AM EST 01/08/2025 7:51 AM EST us Logan Plummer MD LAB BLOOD ORDERABLES Final Res ult [facility] [address] [place] [address] * DIFFERENTIAL, AUTOMATED (01/08/2025 7:36 AM EST) Blood Venous blood specimen / Unknown Central Line / Unknown 01/08/2025 7:36 AM EST 01/08/2025 7:51 AM EST us Logan Plummer MD LAB BLOOD ORDERABLES Final Res ult [facility] [address] [place] [address] * (ABNORMAL) CBC (01/08/2025 7:36 AM EST) WBC 11.34(H) 4.00 - 10.80 K/uL 01/08/2025 8:13 AM EST [facility] RBC 3.12 3.85 - 5.15 M/uL 01/08/2025 8:13 AM EST [facility] HGB 8.6(L) 12.0 - 15.3 g/dL 01/08/2025 8:13 AM EST [facility] HCT 29.0(L) 36.0 - 45.2 % 01/08/2025 8:13 AM [facility] 56- MCV 92.9 81.5 - 97.5 fL 01/08/2025 8:13 AM [facility] 56- MCH 27.6 27.0 - 34.0 pg 01/08/2025 8:13 AM [facility] 56- MCHC 29.7 32.0 - 36.0 g/dL 01/08/2025 8:13 AM [facility] 56- RDW 18.8 11.5 - 15.5 % 01/08/2025 8:13 AM [facility] 56- PLT 483(H) 140 - 400 K/uL 01/08/2025 8:13 AM [facility] 56- MPV 8.4 6.6 - 11.1 fL 01/08/2025 8:13 AM [facility] 56- Blood Venous blood specimen / Unknown Central Line / Unknown 01/08/2025 7:36 AM EST 01/08/2025 7:51 AM EST Logan Plummer MD LAB BLOOD ORDERABLES Final Res ult [facility] 56-02 200 [place] [address] * (ABNORMAL) URIC ACID (01/08/2025 7:36 AM EST) Uric Acid 1.9(L) 2.4 - 5.7 mg/dL 01/08/2025 2:31 PM EST [facility] Blood Venous blood specimen / Unknown Central Line / Unknown 01/08/2025 7:36 AM EST 01/08/2025 7:51 AM EST Logan Pulmmer MD LAB BLOOD ORDERABLES Final Res ult [facility] [address] [place] [address] * (ABNORMAL) COMPREHENSIVE METABOLIC PANEL (01/08/2025 7:36 AM EST) BUN 8 6 - 20 mg/dL 01/08/2025 8:48 AM [facility] 56- CREATININE 0.5 0.5 - 1.0 mg/dL 01/08/2025 8:48 AM [facility] 56- EGFR >90 >=60 mL/min 01/08/2025 8:48 AM [facility] 56- Comment:eGFR is calculated b ased on the CKD-EPI 2020 equation. SODIUM 136 135 - 146 mmol/L 01/08/2025 8:48 AM [facility] 56- POTASSIUM 4.1 3.5 - 5.1 mmol/L 01/08/2025 8:48 AM [facility] 56- CHLORIDE 102 98 - 107 mmol/L 01/08/2025 8:48 AM [facility] 56- CO2 26 22 - 32 mmol/L 01/08/2025 8:48 AM [facility] [place] 56- ANION GAP 8 7 - 15 mmol/L 01/08/2025 8:48 AM [facility] 56- GLUCOSE 95 70 - 120 mg/dL 01/08/2025 8:48 AM [facility] 56- Albumin 3.0(L) 3.8 - 5.0 g/dL 01/08/2025 8:48 AM [facility] 56- AST 23 10 - 35 U/L 01/08/2025 8:48 AM [facility] 56- Alkaline Phosphatase 116 35 - 130 U/L 01/08/2025 8:48 AM [facility] 56- Bilirubin, Total 0.2 <=1.2 mg/dL 01/08/2025 8:48 AM [facility] 56- CALCIUM 8.6 8.4 - 10.2 mg/dL 01/08/2025 8:48 AM [facility] [place] 56- Protein 6.8 6.0 - 8.3 g/dL 01/08/2025 8:48 AM [facility] 56- ALT 20 10 - 35 U/L 01/08/2025 8:48 AM [facility] 56- Blood Venous blood specimen / Unknown Central Line / Unknown 01/08/2025 7:36 AM EST 01/08/2025 7:51 AM EST us Logan Plummer MD LAB BLOOD ORDERABLES Final Res ult [facility] [place] 56-[address] [place] [address] * LD (01/08/2025 7:36 AM EST) LD 217 <=250 U/L 01/08/2025 2:3 1 PM EST [facility] Blood Venous blood specimen / Unknown Central Line / Unknown 01/08/2025 7:36 AM EST 01/08/2025 7:51 AM EST us Logan Plummer MD LAB BLOOD ORDERABLES Final Res ult [facility] [address] [place] [address] documented in this encounter Visit Diagnoses Diagnosis [...] mL documented in this encounter Care Teams Loadmaster Relationship Specialty Start Date End Date Stephany Gilbert CRNP [address] [place] [address] [place] [address] PCP - General Nurse Practitioner 02/02/23 documented as of this encounter
--- OUTSIDE RECORDS SUMMARY | 2025-02-26 17:10 | External Medical Summary | Summary of Care ---
Author Name Unknown Organization [facility] Address [address] [facility] [address] Phone [phone] Care Team Providers Care Horse Farm Manager Name Role Phone Stephany Gilbert Primary [...] VEDOTIN INJ UT INJECTION, Logan Person MD [address] [place] [address] [place] [address] Phone: tel: fax: Hematology/Oncology Treatment, [address] [phone] Phone: tel: fax: Referral ID Status Reason Start Date Expiration Date V isits Requested Visits Authorized [id number] Authorized 11/29/2024 11/13/[phone] Encounter Details Date Type Department Care Team (Latest Contact Info) Description 12/18/2024 9:00 AM EST Hem/Onc Treatment Hematology/Oncolog y Treatment, [address] [phone] Kaykay Chair 8 Hem Onc [address] [place] [address] Encounter for antineoplastic chemotherapy*; 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); Other iron deficiency anemia Allergies Active Allergy Reactions Criticality Noted Date Comments Nickel Rash 03/11/2015 documented as of this encounter (statuses as of 01/23/2025) Medications CALTRATE 600 + D 600-125 MG-IU [...] as of this encounter (statuses as of 01/23/2025) Active Problems Problem Noted Date Diagnosed Date Diffuse large B-cell lymphoma of lymph nodes of neck 11/29/2024 Encounter for antineoplastic chemotherapy 2024 BREAST CANCER UNSPECIFIED,FEMALE 10/25/2008 Other iron deficiency anemia Overview (08/15/2017): ICD-10 update of inactive term Osteoporosis documented as of this encounter (statuses as of 01/23/2025) Resolved Problems Problem Noted Date Diagnosed Date Resolved Date Other iron deficiency anemia 12/19/2008 Overview (08/15/2017): Resolved per Duplicate Protocol #2. ICD-10 update of inactive term documented as of this encounter (statuses as of 01/23/2025) Social History Tobacco Use Types Packs/Day Years [...] 01/29/2025 7:45 AM EDT Nurse Only Hematology/Oncology [address] [phone] Kaykay, Chair 1 Hem Onc [address] [place] [address] 01/29/2025 8:00 AM EDT Office Visit Hematology/Oncology [address] [place] [phone] Etelivna Mo CRNP 400 [facility] [place] [phone] 01/29/2025 8:30 AM EDT Hem/Onc Treatment Hematology/Oncology Treatment, [address] [phone] Kaykay, Chair 7 Hem Onc [address] [place] [address] 02/11/2025 12:45 PM EDT Imaging Radiology [facility] 1st [facility], [place] [address] [place] [phone] 02/14/2025 10:00 AM EDT Office Visit Hematology/Oncology [facility] 200 [facility] [place] [phone] Logan Plummer MD 200 [facility] [place] [address] Scheduled Orders Name Type Priority Associated Diagnoses [...] D LEVEL ONCE IN A LIFETIME-USE SMARTSET# 10136 Completed 10/25/2008 Pneumococcal Vaccine: 50+ Years Completed [...] this encounter Medical Devices Implanted Type Area Integration Manager Device Identifier Shelf Expiration Date Model / Serial / Lot Power Port 8fr Sngl Lumen Plas - [id number] Implanted:Qty : 1 on 12/05/2024 by Taco Sanchez MD at [facility] Left: Chest CR BARD : PERIPHERAL VASCULAR [id number] 07/14/2025 [id number] / / [id number] documented as of this encounter Results * (ABNORMAL) URIC ACID (01/08/2025 7:36 AM EST) [facility] Uric Acid 1.9(L) 2.4 - 5.7 mg/dL 01/08/2025 2:31 PM EST [facility] Blood Venous blood specimen / Unknown Central Line / Unknown 01/08/2025 7:36 AM EST 01/08/2025 7:51 AM EST us Logan Plummer MD LAB BLOOD ORDERABLES Final Res ult [facility] [address] [place] [address] * (ABNORMAL) COMPREHENSIVE METABOLIC PANEL (01/08/2025 7:36 AM EST) [facility] BUN 8 6 - 20 mg/dL 01/08/2025 8:48 AM [facility] 56- CREATININE 0.5 0.5 - 1.0 mg/dL 01/08/2025 8:48 AM [facility] 56- EGFR >90 >=60 mL/min 01/08/2025 8:48 AM [facility] 56- Comment:eGFR is calculated b ased on the CKD-EPI 2020 equation. SODIUM 136 135 - 146 mmol/L 01/08/2025 8:48 AM [facility] 56- POTASSIUM 4.1 3.5 - 5.1 mmol/L 01/08/2025 8:48 AM [facility] 56- CHLORIDE 102 98 - 107 mmol/L 01/08/2025 8:48 AM [facility] 56- CO2 26 22 - 32 mmol/L 01/08/2025 8:48 AM [facility] 56- ANION GAP 8 7 - 15 mmol/L 01/08/2025 8:48 AM [facility] 56- GLUCOSE 95 70 - 120 mg/dL 01/08/2025 8:48 AM [facility] 56- Albumin 3.0(L) 3.8 - 5.0 g/dL 01/08/2025 8:48 AM [facility] 56- AST 23 10 - 35 U/L 01/08/2025 8:48 AM [facility] 56- Alkaline Phosphatase 116 35 - 130 U/L 01/08/2025 8:48 AM [facility] 56- Bilirubin, Total 0.2 <=1.2 mg/dL 01/08/2025 8:48 AM [facility] 56- CALCIUM 8.6 8.4 - 10.2 mg/dL 01/08/2025 8:48 AM [facility] 56- Protein 6.8 6.0 - 8.3 g/dL 01/08/2025 8:48 AM [facility] 56- ALT 20 10 - 35 U/L 01/08/2025 8:48 AM [facility] 56- Blood Venous blood specimen / Unknown Central Line / Unknown 01/08/2025 7:36 AM EST 01/08/2025 7:51 AM EST us Logan Plummer MD LAB BLOOD ORDERABLES Final Res ult [facility] [place] 56-[address] [place] [address] * LD (01/08/2025 7:36 AM EST) LD 217 <=250 U/L 01/08/2025 2:3 1 PM EST [facility] Blood Venous blood specimen / Unknown Central Line / Unknown 01/08/2025 7:36 AM EST 01/08/2025 7:51 AM EST Logan Plummer MD LAB BLOOD ORDERABLES Final Res ult [facility] [address] [place] [address] documented in this encounter Visit Diagnoses Diagnosis [...] mL documented in this encounter Care Teams Horse Farm Manager Relationship Specialty Start Date End Date Stephany Gilbert CRNP [address] [place] [address] [place] [address] PCP - General Nurse Practitioner 02/02/23 documented as of this encounter
--- OUTSIDE RECORDS SUMMARY | 2025-02-26 17:10 | External Medical Summary | Summary of Care ---
Author Name Unknown Organization [facility] Address [address] [facility] [address] Phone [phone] Care Team Providers Care High School Band Teacher Name Role Phone Stephany Gilbert Primary [...] neck (HCC) Prevention of chemotherapy-induced neutropenia Procedures LA INJECTION, RITUXIMAB-PVVR, BIOSIMILAR, (RUXIENCE), 10 MG LA INJ CYCLOPHOSPHAMD [facility]UR[facility]EDIC LA BRENTUXIMAB VEDOTIN INJ LA INJECTION, Logan Person MD 200 [facility] [place] [address] Phone: tel: fax: Hematology/Oncology Treatment, [address] [address] Phone: tel: fax: Referral ID Status Reason Start Date Expiration Date V isits Requested Visits Authorized [id number] Authorized 11/29/2024 11/13/[phone] Encounter Details Date Type Department Care Team (Latest Contact Info) Description 01/08/2025 8:30 AM EST Hem/Onc Treatment Hematology/Oncolog y Treatment, [address] [place] [phone] Kaykay, Chair 9 Hem Onc Scenery [address] [place] [address] Prevention of chemotherapy-induced neutropenia*; Diffuse large B-cell [...] 7:45 AM EDT Nurse Only Hematology/Oncology Treatment, [address] [phone] Kaykay, Chair 1 Hem Onc [address] [place] [address] 01/29/2025 8:00 AM EDT Office Visit Hematology/Oncology [facility] [address] [place] [phone] Etelvina Mo CRNP 400 [facility] [address] 01/29/2025 8:30 AM EDT Hem/Onc Treatment Hematology/Oncology Treatment, [address] [place] [phone] Kaykay, Chair 7 Hem Onc [address] [place] [address] 02/11/2025 12:45 PM EDT Imaging Radiology [address], [place] [address] [place] [phone] 02/14/2025 10:00 AM EDT Office Visit Hematology/Oncology [facility] [place] [address] [place] [phone] Logan Plummer MD [address] [facility] [place] [address] Scheduled Procedures Name Priority Associated Diagnoses Date/Ti [...] D LEVEL ONCE IN A LIFETIME-USE SMARTSET# 16610 Completed 10/25/2008 Pneumococcal Vaccine: 50+ Years Completed [...] this encounter Medical Devices Implanted Type Area Veterinary Physiologist Device Identifier Shelf Expiration Date Model / Serial / Lot Power Port 8fr Sngl Lumen Plas - [id number] Implanted:Qty : 1 on 12/05/2024 by Taco Sanchez MD at OR [facility] Left: Chest CR BARD : PERIPHERAL VASCULAR [id number] 07/14/2025 [id number] / / [id number] documented as of this encounter Procedures Procedure [...] 150 ng/mL 01/08/2025 3:29 PM EST [facility] Comment:Postmenopausal women have higher ferritin levels than pre-menopausal women. The above reference interval is based on pre-menopausal women. Blood Venous blood specimen / Unknown Central Line / Unknown 01/08/2025 7:36 AM EST 01/08/2025 7:51 AM EST us Logan Plummer MD LAB BLOOD ORDERABLES Final Res ult [facility] [address] [place] [address] * (ABNORMAL) IRON SCREEN, INCLUDING TIBC (01/08/2025 7:36 AM EST) Pathologist [facility] Iron 36 33 - 151 ug/dL 01/08/2025 [...] LAB BLOOD ORDERABLES Final Res ult [facility] [address] [place] [address] * (ABNORMAL) DIFFERENTIAL, TECHNOLOGIST REVIEW (01/08/2025 7:36 AM EST) [facility] WBC 11.34(H) 4.00 - 10.80 K/uL 01/08/2025 8:13 AM EST [facility] 56-02 Neutrophils % 73.0 40.0 - 75.0 % 01/08/2025 8:13 AM EST [facility] 56-02 Lymphocytes % 8.0(L) 18.0 - 42.0 % 01/08/2025 8:13 AM EST [facility] 56-02 Monocytes % 16.0(H) 1.0 - 11.0 % 01/08/2025 8:13 AM EST [facility] 56-02 Metamyelocytes % 3.0(H) <=0.0 % 01/08/20 8:13 AM EST [facility] 56-02 Absolute Neutrophils 8.28(H) 1.80 - 7.70 K/uL 01/08/2025 8:13 AM EST [facility] 56-02 Absolute Lymphocytes 0.91(L) 1.00 - 4.80 K/uL 01/08/2025 8:13 AM EST [facility] 56-02 Absolute Monocytes 1.81(H) 0.00 - 1.10 K/uL 01/08/2025 8:13 AM EST [facility] 56 Absolute Metamyelocytes 0.34(H) <=0.00 K/uL 01/08/2025 8:13 AM EST [facility] 56- nRBCs 01/08/2025 8:13 AM EST [facility] 56- Elliptocytes Moderate( A) None Seen 01/08/2025 8:13 AM EST [facility] Polychromasia Moderate( A) None Seen 01/08/2025 8:13 AM EST [facility] 56 Blood Venous blood specimen / Unknown Central Line / Unknown 01/08/2025 7:36 AM EST 01/08/2025 7:51 AM EST us Logan Plummer MD LAB BLOOD ORDERABLES Final Res ult [facility] [address] [place] [address] * DIFFERENTIAL, AUTOMATED (01/08/2025 7:36 AM EST) Blood Venous blood specimen / Unknown Central Line / Unknown 01/08/2025 7:36 AM EST 01/08/2025 7:51 AM EST us Logan Plummer MD LAB BLOOD ORDERABLES Final Res ult [facility] [address] [place] [address] * (ABNORMAL) CBC (01/08/2025 7:36 AM EST) WBC 11.34(H) 4.00 - 10.80 K/uL 01/08/2025 8:13 AM EST [facility] RBC 3.12 3.85 - 5.15 M/uL 01/08/2025 8:13 AM EST [facility] HGB 8.6(L) 12.0 - 15.3 g/dL 01/08/2025 8:13 AM EST [facility] HCT 29.0(L) 36.0 - 45.2 % 01/08/2025 8:13 AM [facility] 56- MCV 92.9 81.5 - 97.5 fL 01/08/2025 8:13 AM [facility] 56- MCH 27.6 27.0 - 34.0 pg 01/08/2025 8:13 AM [facility] 56- MCHC 29.7 32.0 - 36.0 g/dL 01/08/2025 8:13 AM [facility] 56- RDW 18.8 11.5 - 15.5 % 01/08/2025 8:13 AM [facility] 56- PLT 483(H) 140 - 400 K/uL 01/08/2025 8:13 AM [facility] 56- MPV 8.4 6.6 - 11.1 fL 01/08/2025 8:13 AM [facility] 56- Blood Venous blood specimen / Unknown Central Line / Unknown 01/08/2025 7:36 AM EST 01/08/2025 7:51 AM EST Loagn Plummer MD LAB BLOOD ORDERABLES Final Res ult [facility] 56-02 [address] [place] [address] * (ABNORMAL) URIC ACID (01/08/2025 7:36 AM EST) Uric Acid 1.9(L) 2.4 - 5.7 mg/dL 01/08/2025 2:31 PM EST [facility] Blood Venous blood specimen / Unknown Central Line / Unknown 01/08/2025 7:36 AM EST 01/08/2025 7:51 AM EST Logan Plummer MD LAB BLOOD ORDERABLES Final Res ult [facility] [address] [place] [address] * (ABNORMAL) COMPREHENSIVE METABOLIC PANEL (01/08/2025 7:36 AM EST) BUN 8 6 - 20 mg/dL 01/08/2025 8:48 AM [facility] 56- CREATININE 0.5 0.5 - 1.0 mg/dL 01/08/2025 8:48 AM [facility] 56- EGFR >90 >=60 mL/min 01/08/2025 8:48 AM [facility] 56- Comment:eGFR is calculated b ased on the CKD-EPI 2020 equation. SODIUM 136 135 - 146 mmol/L 01/08/2025 8:48 AM [facility] 56- POTASSIUM 4.1 3.5 - 5.1 mmol/L 01/08/2025 8:48 AM [facility] 56- CHLORIDE 102 98 - 107 mmol/L 01/08/2025 8:48 AM [facility] 56- CO2 26 22 - 32 mmol/L 01/08/2025 8:48 AM [facility] [place] 56- ANION GAP 8 7 - 15 mmol/L 01/08/2025 8:48 AM [facility] 56- GLUCOSE 95 70 - 120 mg/dL 01/08/2025 8:48 AM [facility] 56- Albumin 3.0(L) 3.8 - 5.0 g/dL 01/08/2025 8:48 AM [facility] 56- AST 23 10 - 35 U/L 01/08/2025 8:48 AM [facility] 56- Alkaline Phosphatase 116 35 - 130 U/L 01/08/2025 8:48 AM [facility] 56- Bilirubin, Total 0.2 <=1.2 mg/dL 01/08/2025 8:48 AM [facility] 56- CALCIUM 8.6 8.4 - 10.2 mg/dL 01/08/2025 8:48 AM [facility] [place] 56- Protein 6.8 6.0 - 8.3 g/dL 01/08/2025 8:48 AM [facility] 56- ALT 20 10 - 35 U/L 01/08/2025 8:48 AM [facility] 56- Blood Venous blood specimen / Unknown Central Line / Unknown 01/08/2025 7:36 AM EST 01/08/2025 7:51 AM EST us Logan Plummer MD LAB BLOOD ORDERABLES Final Res ult [facility] [address] [place] [address] * LD (01/08/2025 7:36 AM EST) LD 217 <=250 U/L 01/08/2025 2:3 1 PM EST [facility] [place] Venous blood specimen / Unknown Central Line / Unknown 01/08/2025 7:36 AM EST 01/08/2025 7:51 AM EST us Logan Plummer MD LAB BLOOD ORDERABLES Final Res ult [facility] [place] [address] [place] [address] documented in this encounter Visit Diagnoses Diagnosis [...] mL documented in this encounter Care Teams [employer] Relationship Specialty Start Date End Date Stephany Gilbert CRNP [address] [place] [address] DEANNE Parks [id number] PCP - General Nurse Practitioner 02/02/23 documented as of this encounter
--- OUTSIDE RECORDS SUMMARY | 2025-02-26 17:10 | External Medical Summary | Summary of Care ---
Author Name Unknown Organization [facility] Address [address] [facility] [facility] [address] Phone [phone] Care Team Providers Care Master Pilot Name Role Phone Stephany Gilbert Primary Care [...] VEDOTIN INJ [place] INJECTION, Logan Person MD [address] [place] [address] [place] [address] Phone: tel: fax: Hematology/Oncology Treatment, [address] [address] Phone: tel: fax: Referral ID Status Reason Start Date Expiration Date V isits Requested Visits Authorized [id number] Authorized 11/29/2024 11/13/[phone] Encounter Details Date Type Department Care Team (Latest Contact Info) Description 12/18/2024 9:00 AM EST Hem/Onc Treatment Hematology/Oncolog y Treatment, [address] [phone] Kaykay Chair 8 Hem On[address] [place] [address] Encounter for antineoplastic chemotherapy*; Diffuse large [...] 01/29/2025 7:45 AM EDT Nurse Only Hematology/Oncology [address] [phone] Kaykay, Chair 1 Hem Onc [address] [place] [address] 01/29/2025 8:00 AM EDT Office Visit Hematology/Oncology [address] [place] [phone] Etelvina Mo CRNP [address] [facility] [place] [phone] 01/29/2025 8:30 AM EDT Hem/Onc Treatment Hematology/Oncology Treatment, [address] [address] Kaykay, Chair 7 Hem On[address] [place] [address] 02/11/2025 12:45 PM EDT Imaging Radiology [facility] 1st [facility], [place] [address] [place] [phone] 02/14/2025 10:00 AM EDT Office Visit Hematology/Oncology [facility] 200 [facility] [place] [phone] Logan Plummer MD 200 [facility] [place] [address] Scheduled Orders Name Type Priority Associated Diagnoses [...] D LEVEL ONCE IN A LIFETIME-USE SMARTSET# [id number] Completed 10/25/2008 Pneumococcal Vaccine: 50+ Years Completed [...] this encounter Medical Devices Implanted Type Area Storage Management Architect Device Identifier Shelf Expiration Date Model / Serial / Lot Power Port 8fr Sngl Lumen Plas - [id number] Implanted:Qty : 1 on 12/05/2024 by Taco Sanchez MD at [facility] Left: Chest CR BARD : PERIPHERAL VASCULAR [id number] 07/14/2025 [id number] / / [id number] documented as of this encounter Results * (ABNORMAL) URIC ACID (01/08/2025 7:36 AM EST) [facility] Uric Acid 1.9(L) 2.4 - 5.7 mg/dL 01/08/2025 2:31 PM EST LABORATORY [facility] Blood Venous blood specimen / Unknown Central Line / Unknown 01/08/2025 7:36 AM EST 01/08/2025 7:51 AM EST us Logan Plummer MD LAB BLOOD ORDERABLES Final Res ult LABORATORY [facility] [address] [place] [address] * (ABNORMAL) COMPREHENSIVE METABOLIC PANEL (01/08/2025 7:36 AM EST) [facility] BUN 8 6 - 20 mg/dL 01/08/2025 8:48 AM [facility] 56- CREATININE 0.5 0.5 - 1.0 mg/dL 01/08/2025 8:48 AM [facility] 56- EGFR >90 >=60 mL/min 01/08/2025 8:48 AM [facility] 56- Comment:eGFR is calculated b ased on the CKD-EPI 2020 equation. SODIUM 136 135 - 146 mmol/L 01/08/2025 8:48 AM [facility] 56- POTASSIUM 4.1 3.5 - 5.1 mmol/L 01/08/2025 8:48 AM [facility] 56- CHLORIDE 102 98 - 107 mmol/L 01/08/2025 8:48 AM [facility] 56- CO2 26 22 - 32 mmol/L 01/08/2025 8:48 AM [facility] 56- ANION GAP 8 7 - 15 mmol/L 01/08/2025 8:48 AM [facility] 56- GLUCOSE 95 70 - 120 mg/dL 01/08/2025 8:48 AM [facility] 56- Albumin 3.0(L) 3.8 - 5.0 g/dL 01/08/2025 8:48 AM [facility] 56- AST 23 10 - 35 U/L 01/08/2025 8:48 AM [facility] 56- Alkaline Phosphatase 116 35 - 130 U/L 01/08/2025 8:48 AM [facility] 56- Bilirubin, Total 0.2 <=1.2 mg/dL 01/08/2025 8:48 AM [facility] 56- CALCIUM 8.6 8.4 - 10.2 mg/dL 01/08/2025 8:48 AM [facility] 56- Protein 6.8 6.0 - 8.3 g/dL 01/08/2025 8:48 AM [facility] 56- ALT 20 10 - 35 U/L 01/08/2025 8:48 AM [facility] 56- Blood Venous blood specimen / Unknown Central Line / Unknown 01/08/2025 7:36 AM EST 01/08/2025 7:51 AM EST us Logan Plummer MD LAB BLOOD ORDERABLES Final Res ult LABORATORY [facility] 56-[address] [place] [address] * LD (01/08/2025 7:36 AM EST) LD 217 <=250 U/L 01/08/2025 2:3 1 PM EST LABORATORY [facility] Blood Venous blood specimen / Unknown Central Line / Unknown 01/08/2025 7:36 AM EST 01/08/2025 7:51 AM EST Logan Plummer MD LAB BLOOD ORDERABLES Final Res ult LABORATORY [facility] [address] [place] [address] documented in this encounter Visit Diagnoses Diagnosis [...] mL documented in this encounter Care Teams Master Pilot Relationship Specialty Start Date End Date Stephany Gilbert CRNP [address] [place] [address] [place] [address] PCP - General Nurse Practitioner 02/02/23 documented as of this encounter
--- OUTSIDE RECORDS SUMMARY | 2025-02-26 17:10 | External Medical Summary | Summary of Care ---
Author Name Unknown Organization [facility] Address [address] [facility] [address] Phone [phone] Care Team Providers Care Senior Maintenance Technician Name Role Phone Stephany Gilbert Primary [...] VEDOTIN INJ GA INJECTION, Logan Person MD [address] [place] [address] [place] [address] Phone: tel: fax: Hematology/Oncology Treatment, [address] [address] Phone: tel: fax: Referral ID Status Reason Start Date Expiration Date V isits Requested Visits Authorized [id number] Authorized 11/29/2024 11/13/[phone] Encounter Details Date Type Department Care Team (Latest Contact Info) Description 12/18/2024 9:00 AM EST Hem/Onc Treatment Hematology/Oncolog y Treatment, [address] [phone] Kaykay Chair 8 Hem Onc [address] [place] [address] Encounter for antineoplastic chemotherapy*; Diffuse large [...] 01/29/2025 7:45 AM EDT Nurse Only Hematology/Oncology [address] [phone] Kaykay, Chair 1 Hem Onc [address] [place] [address] 01/29/2025 8:00 AM EDT Office Visit Hematology/Oncology [address] [place] [phone] Etelvina Mo CRNP [address] [facility] [place] [phone] 01/29/2025 8:30 AM EDT Hem/Onc Treatment Hematology/Oncology Treatment, [address] [phone] Kaykay, Chair 7 Hem Onc [address] [place] [address] 02/11/2025 12:45 PM EDT Imaging Radiology [facility] 1st [facility], [place] [address] [place] [phone] 02/14/2025 10:00 AM EDT Office Visit Hematology/Oncology [facility] 200 [facility] [place] [phone] Logan Plummer MD 200 [facility] [place] [address] Scheduled Orders Name Type Priority Associated Diagnoses [...] D LEVEL ONCE IN A LIFETIME-USE SMARTSET# [id number] Completed 10/25/2008 Pneumococcal Vaccine: 50+ Years Completed [...] this encounter Medical Devices Implanted Type Area Sand Sifter Device Identifier Shelf Expiration Date Model / Serial / Lot Power Port 8fr Sngl Lumen Plas - [id number] Implanted:Qty : 1 on 12/05/2024 by Taco Sanchez MD at [facility] Left: Chest CR BARD : PERIPHERAL VASCULAR [id number] 07/14/2025 [id number] / / [id number] documented as of this encounter Results * (ABNORMAL) URIC ACID (01/08/2025 7:36 AM EST) [facility] Uric Acid 1.9(L) 2.4 - 5.7 mg/dL 01/08/2025 2:31 PM EST LABORATORY [facility] Blood Venous blood specimen / Unknown Central Line / Unknown 01/08/2025 7:36 AM EST 01/08/2025 7:51 AM EST us Logan Plummer MD LAB BLOOD ORDERABLES Final Res ult LABORATORY [facility] [address] [place] [address] * (ABNORMAL) COMPREHENSIVE METABOLIC PANEL (01/08/2025 7:36 AM EST) [facility] BUN 8 6 - 20 mg/dL 01/08/2025 8:48 AM [facility] 56- CREATININE 0.5 0.5 - 1.0 mg/dL 01/08/2025 8:48 AM [facility] 56- EGFR >90 >=60 mL/min 01/08/2025 8:48 AM [facility] 56- Comment:eGFR is calculated b ased on the CKD-EPI 2020 equation. SODIUM 136 135 - 146 mmol/L 01/08/2025 8:48 AM [facility] 56- POTASSIUM 4.1 3.5 - 5.1 mmol/L 01/08/2025 8:48 AM [facility] 56- CHLORIDE 102 98 - 107 mmol/L 01/08/2025 8:48 AM [facility] 56- CO2 26 22 - 32 mmol/L 01/08/2025 8:48 AM [facility] 56- ANION GAP 8 7 - 15 mmol/L 01/08/2025 8:48 AM [facility] 56- GLUCOSE 95 70 - 120 mg/dL 01/08/2025 8:48 AM [facility] 56- Albumin 3.0(L) 3.8 - 5.0 g/dL 01/08/2025 8:48 AM [facility] 56- AST 23 10 - 35 U/L 01/08/2025 8:48 AM [facility] 56- Alkaline Phosphatase 116 35 - 130 U/L 01/08/2025 8:48 AM [facility] 56- Bilirubin, Total 0.2 <=1.2 mg/dL 01/08/2025 8:48 AM [facility] 56- CALCIUM 8.6 8.4 - 10.2 mg/dL 01/08/2025 8:48 AM [facility] 56- Protein 6.8 6.0 - 8.3 g/dL 01/08/2025 8:48 AM [facility] 56- ALT 20 10 - 35 U/L 01/08/2025 8:48 AM [facility] 56- Blood Venous blood specimen / Unknown Central Line / Unknown 01/08/2025 7:36 AM EST 01/08/2025 7:51 AM EST us Logan Plummer MD LAB BLOOD ORDERABLES Final Res ult LABORATORY [facility] 56-[address] [place] [address] * LD (01/08/2025 7:36 AM EST) LD 217 <=250 U/L 01/08/2025 2:3 1 PM EST LABORATORY [facility] Blood Venous blood specimen / Unknown Central Line / Unknown 01/08/2025 7:36 AM EST 01/08/2025 7:51 AM EST Logan Plummer MD LAB BLOOD ORDERABLES Final Res ult LABORATORY [facility] [address] [place] [address] documented in this encounter Visit Diagnoses Diagnosis [...] documented in this encounter Care Teams Senior Maintenance Technician Relationship Specialty Start Date End Date Stephany Gilbert CRNP [address] [place] [address] [place] [address] PCP - General Nurse Practitioner 02/02/23 documented as of this encounter
--- OUTSIDE RECORDS SUMMARY | 2025-02-26 17:10 | External Medical Summary | Summary of Care ---
Author Name Unknown Organization [facility] Address [address] [facility] [address] Phone [phone] Care Team Providers Care Analytical Sciences Director Name Role Phone Stephany Gilbert Primary Care [...] neck (HCC) Prevention of chemotherapy-induced neutropenia Procedures MO INJECTION, RITUXIMAB-PVVR, BIOSIMILAR, (RUXIENCE), 10 MG MO INJ CYCLOPHOSPHAMD AUROMEDIC MO BRENTUXIMAB VEDOTIN INJ MO INJECTION, Logan Person MD 200 [place] [place] [address] Phone: tel: fax: Hematology/Oncology Treatment, [address] [address] Phone: tel: fax: Referral ID Status Reason Start Date Expiration Date V isits Requested Visits Authorized [id number] Authorized 11/29/2024 11/13/[phone] Encounter Details Date Type Department Care Team (Latest Contact Info) Description 01/08/2025 8:30 AM EST Hem/Onc Treatment Hematology/Oncolog y Treatment, [address] [place] [address] Kaykay, Chair 9 Hem Onc Scenery [address] [place] [address] Prevention of chemotherapy-induced neutropenia*; Diffuse large B-cell [...] 7:45 AM EDT Nurse Only Hematology/Oncology Treatment, [address] [phone] Kaykay, Chair 1 Hem Onc [address] [place] [address] 01/29/2025 8:00 AM EDT Office Visit Hematology/Oncology [facility] [address] [place] [phone] Etelvina Mo CRNP [address] [facility] [address] 01/29/2025 8:30 AM EDT Hem/Onc Treatment Hematology/Oncology Treatment, [address] [place] [phone] Kaykay, Chair 7 Hem Onc [address] [place] [address] 02/11/2025 12:45 PM EDT Imaging Radiology [address], [place] [address] [place] [phone] 02/14/2025 10:00 AM EDT Office Visit Hematology/Oncology [facility] [place] [address] [place] [phone] Logan [place]ummer MD [facility] [place] [address] Scheduled Procedures Name Priority Associated Diagnoses Date/Ti [...] D LEVEL ONCE IN A LIFETIME-USE SMARTSET# [id number] Completed 10/25/2008 Pneumococcal Vaccine: 50+ Years Completed [...] encounter Medical Devices Implanted Type Area Integration Software Developer Device Identifier Shelf Expiration Date Model / Serial / Lot Power Port 8fr Sngl Lumen Plas - [id number] Implanted:Qty : 1 on 12/05/2024 by Taco Sanchez MD at [facility] Left: Chest CR BARD : PERIPHERAL VASCULAR [id number] 07/14/2025 [id number] / / [id number] documented as of this encounter Procedures Procedure [...] 150 ng/mL 01/08/2025 3:29 PM EST LABORATORY [facility] Comment:Postmenopausal women have higher ferritin levels than pre-menopausal women. The above reference interval is based on pre-menopausal women. Blood Venous blood specimen / Unknown Central Line / Unknown 01/08/2025 7:36 AM EST 01/08/2025 7:51 AM EST us Logan Plummer MD LAB BLOOD ORDERABLES Final Res ult LABORATORY [facility] [address] [place] [address] * (ABNORMAL) IRON SCREEN, INCLUDING TIBC (01/08/2025 7:36 AM EST) Pathologist [facility] Iron 36 33 - 151 ug/dL 01/08/2025 [...] LAB BLOOD ORDERABLES Final Res ult LABORATORY [facility] [address] [place] [address] * (ABNORMAL) DIFFERENTIAL, TECHNOLOGIST REVIEW (01/08/2025 7:36 AM EST) [facility] WBC 11.34(H) 4.00 - 10.80 K/uL 01/08/2025 8:13 AM EST [facility] 56-02 Neutrophils % 73.0 40.0 - 75.0 % 01/08/2025 8:13 AM EST [facility] 56-02 Lymphocytes % 8.0(L) 18.0 - 42.0 % 01/08/2025 8:13 AM EST [facility] 56-02 Monocytes % 16.0(H) 1.0 - 11.0 % 01/08/2025 8:13 AM EST [facility] 56-02 Metamyelocytes % 3.0(H) <=0.0 % 01/08/20 8:13 AM EST [facility] 56-02 Absolute Neutrophils 8.28(H) 1.80 - 7.70 K/uL 01/08/2025 8:13 AM EST [facility] 56-02 Absolute Lymphocytes 0.91(L) 1.00 - 4.80 K/uL 01/08/2025 8:13 AM EST [facility] 56-02 Absolute Monocytes 1.81(H) 0.00 - 1.10 K/uL 01/08/2025 8:13 AM EST [facility] 56 Absolute Metamyelocytes 0.34(H) <=0.00 K/uL 01/08/2025 8:13 AM EST [facility] 56- nRBCs 01/08/2025 8:13 AM EST [facility] 56- Elliptocytes Moderate( A) None Seen 01/08/2025 8:13 AM EST [facility] Polychromasia Moderate( A) None Seen 01/08/2025 8:13 AM EST [facility] 56 Blood Venous blood specimen / Unknown Central Line / Unknown 01/08/2025 7:36 AM EST 01/08/2025 7:51 AM EST us Logan Plummer MD LAB BLOOD ORDERABLES Final Res ult [facility] [address] [place] [address] * DIFFERENTIAL, AUTOMATED (01/08/2025 7:36 AM EST) Blood Venous blood specimen / Unknown Central Line / Unknown 01/08/2025 7:36 AM EST 01/08/2025 7:51 AM EST us Logan Plummer MD LAB BLOOD ORDERABLES Final Res ult [facility] [address] [place] [address] * (ABNORMAL) CBC (01/08/2025 7:36 AM EST) WBC 11.34(H) 4.00 - 10.80 K/uL 01/08/2025 8:13 AM EST [facility] RBC 3.12 3.85 - 5.15 M/uL 01/08/2025 8:13 AM EST [facility] HGB 8.6(L) 12.0 - 15.3 g/dL 01/08/2025 8:13 AM EST [facility] HCT 29.0(L) 36.0 - 45.2 % 01/08/2025 8:13 AM [facility] 56- MCV 92.9 81.5 - 97.5 fL 01/08/2025 8:13 AM [facility] 56- MCH 27.6 27.0 - 34.0 pg 01/08/2025 8:13 AM [facility] 56- MCHC 29.7 32.0 - 36.0 g/dL 01/08/2025 8:13 AM [facility] 56- RDW 18.8 11.5 - 15.5 % 01/08/2025 8:13 AM [facility] 56- PLT 483(H) 140 - 400 K/uL 01/08/2025 8:13 AM [facility] 56- MPV 8.4 6.6 - 11.1 fL 01/08/2025 8:13 AM [facility] 56- Blood Venous blood specimen / Unknown Central Line / Unknown 01/08/2025 7:36 AM EST 01/08/2025 7:51 AM EST Logan Plummer MD LAB BLOOD ORDERABLES Final Res ult [facility] 56-02 [address] [place] [address] * (ABNORMAL) URIC ACID (01/08/2025 7:36 AM EST) Uric Acid 1.9(L) 2.4 - 5.7 mg/dL 01/08/2025 2:31 PM EST LABORATORY [facility] Blood Venous blood specimen / Unknown Central Line / Unknown 01/08/2025 7:36 AM EST 01/08/2025 7:51 AM EST Logan Plummer MD LAB BLOOD ORDERABLES Final Res ult LABORATORY [facility] [address] [place] [address] * (ABNORMAL) COMPREHENSIVE METABOLIC PANEL (01/08/2025 7:36 AM EST) BUN 8 6 - 20 mg/dL 01/08/2025 8:48 AM [facility] 56- CREATININE 0.5 0.5 - 1.0 mg/dL 01/08/2025 8:48 AM [facility] 56- EGFR >90 >=60 mL/min 01/08/2025 8:48 AM [facility] 56- Comment:eGFR is calculated b ased on the CKD-EPI 2020 equation. SODIUM 136 135 - 146 mmol/L 01/08/2025 8:48 AM [facility] 56- POTASSIUM 4.1 3.5 - 5.1 mmol/L 01/08/2025 8:48 AM [facility] 56- CHLORIDE 102 98 - 107 mmol/L 01/08/2025 8:48 AM [facility] 56- CO2 26 22 - 32 mmol/L 01/08/2025 8:48 AM [facility] [employer] [place] 56- ANION GAP 8 7 - 15 mmol/L 01/08/2025 8:48 AM [facility] 56- GLUCOSE 95 70 - 120 mg/dL 01/08/2025 8:48 AM [facility] 56- Albumin 3.0(L) 3.8 - 5.0 g/dL 01/08/2025 8:48 AM [facility] 56- AST 23 10 - 35 U/L 01/08/2025 8:48 AM [facility] 56- Alkaline Phosphatase 116 35 - 130 U/L 01/08/2025 8:48 AM [facility] 56- Bilirubin, Total 0.2 <=1.2 mg/dL 01/08/2025 8:48 AM [facility] 56- CALCIUM 8.6 8.4 - 10.2 mg/dL 01/08/2025 8:48 AM [facility] [employer] [place] 56- Protein 6.8 6.0 - 8.3 g/dL 01/08/2025 8:48 AM [facility] 56- ALT 20 10 - 35 U/L 01/08/2025 8:48 AM [facility] 56- Blood Venous blood specimen / Unknown Central Line / Unknown 01/08/2025 7:36 AM EST 01/08/2025 7:51 AM EST us Logan Plummer MD LAB BLOOD ORDERABLES Final Res ult LABORATORY [place] 56-[address] [place] [address] * LD (01/08/2025 7:36 AM EST) LD 217 <=250 U/L 01/08/2025 2:3 1 PM EST LABORATORY [facility] Blood Venous blood specimen / Unknown Central Line / Unknown 01/08/2025 7:36 AM EST 01/08/2025 7:51 AM EST us Logan Plummer MD LAB BLOOD ORDERABLES Final Res ult LABORATORY [facility] [address] [place] [address] documented in this encounter Visit Diagnoses Diagnosis [...] mL documented in this encounter Care Teams Analytical Sciences Director Relationship Specialty Start Date End Date Stephany Gilbert CRNP [address] [place] [address] [place] [address] PCP - General Nurse Practitioner 02/02/23 documented as of this encounter
--- OUTSIDE RECORDS SUMMARY | 2025-02-26 17:11 | External Medical Summary | Summary of Care ---
Author Name Unknown Organization [facility] Address [address] [facility] [address] Phone [phone] Care Team Providers Care Customer Engagement Analyst Name Role Phone Stephany Gilbert Primary Care [...] neck (HCC) Prevention of chemotherapy-induced neutropenia Procedures [place] INJECTION, RITUXIMAB-PVVR, BIOSIMILAR, (RUXIENCE), 10 MG [place] INJ CYCLOPHOSPHAMD [facility]UROMEDIC [place] BRENTUXIMAB VEDOTIN INJ [place] INJECTION, Logan Person MD [address] [place] [address] Phone: tel: fax: Hematology/Oncology Treatment, [address] [address] Phone: tel: fax: Referral ID Status Reason Start Date Expiration Date V isits Requested Visits Authorized [id number] Authorized 11/29/2024 11/13/[phone] Encounter Details Date Type Department Care Team (Latest Contact Info) Description 01/08/2025 8:30 AM EST Hem/Onc Treatment Hematology/Oncolog y Treatment, [address] [place] [address] Kaykay, Chair 9 Hem Onc Scenery [address] [place] [address] Prevention of chemotherapy-induced neutropenia*; Diffuse large B-cell [...] 7:45 AM EDT Nurse Only Hematology/Oncology Treatment, [address] [phone] Kaykay, Chair 1 Hem Onc [address] [place] [address] 01/29/2025 8:00 AM EDT Office Visit Hematology/Oncology [facility] [address] [place] [phone] Etelvina Mo CRNP [facility] [address] 01/29/2025 8:30 AM EDT Hem/Onc Treatment Hematology/Oncology Treatment, [address] [place] [phone] Kaykay, Chair 7 Hem Onc [address] [address] 02/11/2025 12:45 PM EDT Imaging Radiology [address], [place] [address] [place] [phone] 02/14/2025 10:00 AM EDT Office Visit Hematology/Oncology [facility] [place] [address] [place] [phone] Logan Plummer MD [facility] [place] [address] Scheduled Procedures Name Priority Associated Diagnoses Date/Ti [...] D LEVEL ONCE IN A LIFETIME-USE SMARTSET# 26362 Completed 10/25/2008 Pneumococcal Vaccine: 50+ Years Completed [...] this encounter Medical Devices Implanted Type Area Engineer Second Assistant Device Identifier Shelf Expiration Date Model / Serial / Lot Power Port 8fr Sngl Lumen Plas - [id number] Implanted:Qty : 1 on 12/05/2024 by Taco Sanchez MD at OR [facility] Left: Chest CR BARD : PERIPHERAL VASCULAR [id number] 07/14/2025 [id number] / / [id number] documented as of this encounter Procedures Procedure [...] 150 ng/mL 01/08/2025 3:29 PM EST LABORATORY [facility] Comment:Postmenopausal women have higher ferritin levels than pre-menopausal women. The above reference interval is based on pre-menopausal women. Blood Venous blood specimen / Unknown Central Line / Unknown 01/08/2025 7:36 AM EST 01/08/2025 7:51 AM EST us Logan Plummer MD LAB BLOOD ORDERABLES Final Res ult LABORATORY [facility] [address] [place] [address] * (ABNORMAL) IRON SCREEN, INCLUDING TIBC (01/08/2025 7:36 AM EST) Pathologist [facility] Iron 36 33 - 151 ug/dL 01/08/2025 [...] LAB BLOOD ORDERABLES Final Res ult LABORATORY [facility] [address] [place] [address] * (ABNORMAL) DIFFERENTIAL, TECHNOLOGIST REVIEW (01/08/2025 7:36 AM EST) [facility] WBC 11.34(H) 4.00 - 10.80 K/uL 01/08/2025 8:13 AM EST [facility] 56-02 Neutrophils % 73.0 40.0 - 75.0 % 01/08/2025 8:13 AM EST [facility] 56-02 Lymphocytes % 8.0(L) 18.0 - 42.0 % 01/08/2025 8:13 AM EST [facility] 56-02 Monocytes % 16.0(H) 1.0 - 11.0 % 01/08/2025 8:13 AM EST [facility] 56-02 Metamyelocytes % 3.0(H) <=0.0 % 01/08/20 8:13 AM EST [facility] 56-02 Absolute Neutrophils 8.28(H) 1.80 - 7.70 K/uL 01/08/2025 8:13 AM EST [facility] 56-02 Absolute Lymphocytes 0.91(L) 1.00 - 4.80 K/uL 01/08/2025 8:13 AM EST [facility] 56-02 Absolute Monocytes 1.81(H) 0.00 - 1.10 K/uL 01/08/2025 8:13 AM EST [facility] 56 Absolute Metamyelocytes 0.34(H) <=0.00 K/uL 01/08/2025 8:13 AM EST [facility] 56- nRBCs 01/08/2025 8:13 AM EST [facility] 56- Elliptocytes Moderate( A) None Seen 01/08/2025 8:13 AM EST [facility] Polychromasia Moderate( A) None Seen 01/08/2025 8:13 AM EST [facility] 56 Blood Venous blood specimen / Unknown Central Line / Unknown 01/08/2025 7:36 AM EST 01/08/2025 7:51 AM EST us Logan Plummer MD LAB BLOOD ORDERABLES Final Res ult [facility] [address] [place] [address] * DIFFERENTIAL, AUTOMATED (01/08/2025 7:36 AM EST) Blood Venous blood specimen / Unknown Central Line / Unknown 01/08/2025 7:36 AM EST 01/08/2025 7:51 AM EST us Logan Plummer MD LAB BLOOD ORDERABLES Final Res ult [facility] [address] [place] [address] * (ABNORMAL) CBC (01/08/2025 7:36 AM EST) WBC 11.34(H) 4.00 - 10.80 K/uL 01/08/2025 8:13 AM EST [facility] RBC 3.12 3.85 - 5.15 M/uL 01/08/2025 8:13 AM EST [facility] HGB 8.6(L) 12.0 - 15.3 g/dL 01/08/2025 8:13 AM EST [facility] HCT 29.0(L) 36.0 - 45.2 % 01/08/2025 8:13 AM [facility] 56- MCV 92.9 81.5 - 97.5 fL 01/08/2025 8:13 AM [facility] 56- MCH 27.6 27.0 - 34.0 pg 01/08/2025 8:13 AM [facility] 56- MCHC 29.7 32.0 - 36.0 g/dL 01/08/2025 8:13 AM [facility] 56- RDW 18.8 11.5 - 15.5 % 01/08/2025 8:13 AM [facility] 56- PLT 483(H) 140 - 400 K/uL 01/08/2025 8:13 AM [facility] 56- MPV 8.4 6.6 - 11.1 fL 01/08/2025 8:13 AM [facility] 56- Blood Venous blood specimen / Unknown Central Line / Unknown 01/08/2025 7:36 AM EST 01/08/2025 7:51 AM EST Logan Plummer MD LAB BLOOD ORDERABLES Final Res ult [facility] 56-02 [address] [place] [address] * (ABNORMAL) URIC ACID (01/08/2025 7:36 AM EST) Uric Acid 1.9(L) 2.4 - 5.7 mg/dL 01/08/2025 2:31 PM EST LABORATORY [facility] Blood Venous blood specimen / Unknown Central Line / Unknown 01/08/2025 7:36 AM EST 01/08/2025 7:51 AM EST Logan Plummer MD LAB BLOOD ORDERABLES Final Res ult LABORATORY [facility] [address] [place] [address] * (ABNORMAL) COMPREHENSIVE METABOLIC PANEL (01/08/2025 7:36 AM EST) BUN 8 6 - 20 mg/dL 01/08/2025 8:48 AM [facility] 56- CREATININE 0.5 0.5 - 1.0 mg/dL 01/08/2025 8:48 AM [facility] 56- EGFR >90 >=60 mL/min 01/08/2025 8:48 AM [facility] 56- Comment:eGFR is calculated b ased on the CKD-EPI 2020 equation. SODIUM 136 135 - 146 mmol/L 01/08/2025 8:48 AM [facility] 56- POTASSIUM 4.1 3.5 - 5.1 mmol/L 01/08/2025 8:48 AM [facility] 56- CHLORIDE 102 98 - 107 mmol/L 01/08/2025 8:48 AM [facility] 56- CO2 26 22 - 32 mmol/L 01/08/2025 8:48 AM [facility] [employer] [place] 56- ANION GAP 8 7 - 15 mmol/L 01/08/2025 8:48 AM [facility] 56- GLUCOSE 95 70 - 120 mg/dL 01/08/2025 8:48 AM [facility] 56- Albumin 3.0(L) 3.8 - 5.0 g/dL 01/08/2025 8:48 AM [facility] 56- AST 23 10 - 35 U/L 01/08/2025 8:48 AM [facility] 56- Alkaline Phosphatase 116 35 - 130 U/L 01/08/2025 8:48 AM [facility] 56- Bilirubin, Total 0.2 <=1.2 mg/dL 01/08/2025 8:48 AM [facility] 56- CALCIUM 8.6 8.4 - 10.2 mg/dL 01/08/2025 8:48 AM [facility] [employer] [place] 56- Protein 6.8 6.0 - 8.3 g/dL 01/08/2025 8:48 AM [facility] 56- ALT 20 10 - 35 U/L 01/08/2025 8:48 AM [facility] 56- Blood Venous blood specimen / Unknown Central Line / Unknown 01/08/2025 7:36 AM EST 01/08/2025 7:51 AM EST us Logan Plummer MD LAB BLOOD ORDERABLES Final Res ult LABORATORY [place] 56-[address] [place] [address] * LD (01/08/2025 7:36 AM EST) LD 217 <=250 U/L 01/08/2025 2:3 1 PM EST LABORATORY [facility] Blood Venous blood specimen / Unknown Central Line / Unknown 01/08/2025 7:36 AM EST 01/08/2025 7:51 AM EST us Logan Plummer MD LAB BLOOD ORDERABLES Final Res ult LABORATORY [facility] [address] [place] [address] documented in this encounter Visit Diagnoses Diagnosis [...] mL documented in this encounter Care Teams Customer Engagement Analyst Relationship Specialty Start Date End Date Stephany Gilbert CRNP [address] [place] [address] [place] [address] PCP - General Nurse Practitioner 02/02/23 documented as of this encounter
--- OUTSIDE RECORDS SUMMARY | 2025-02-26 17:11 | External Medical Summary | Summary of Care ---
Author Name Unknown Organization [facility] Address [address] [facility] [address] Phone [phone] Care Team Providers Care Corporate Travel Agent Name Role Phone Stephany Gilbert Primary Care [...] VEDOTIN INJ [place] INJECTION, Logan Person MD [address] [place] [address] [place] [address] Phone: tel: fax: Hematology/Oncology Treatment, [address] [address] Phone: tel: fax: Referral ID Status Reason Start Date Expiration Date V isits Requested Visits Authorized [id number] Authorized 11/29/2024 11/13/[phone] Encounter Details Date Type Department Care Team (Latest Contact Info) Description 12/18/2024 9:00 AM EST Hem/Onc Treatment Hematology/Oncolog y Treatment, [address] [address] Kaykay Chair 8 Hem On[address] [place] [address] Encounter for antineoplastic chemotherapy*; Diffuse large [...] 01/29/2025 7:45 AM EDT Nurse Only Hematology/Oncology [address] [phone] Kaykay, Chair 1 Hem Onc [address] [place] [address] 01/29/2025 8:00 AM EDT Office Visit Hematology/Oncology [address] [place] [phone] Etelvina Mo CRNP 400 [facility] [place] [id number] 01/29/2025 8:30 AM EDT Hem/Onc Treatment Hematology/Oncology [address], [address] [phone] Kaykay, Chair 7 Hem Onc [address] [place] [address] 02/11/2025 12:45 PM EDT Imaging Radiology [facility] 1st [facility], [place] [address] [place] [address] 02/14/2025 10:00 AM EDT Office Visit Hematology/Oncology [facility] 200 [facility] [place] [phone] Logan Plummer MD 200 [facility] [place] [address] Scheduled Orders Name Type Priority Associated Diagnoses [...] D LEVEL ONCE IN A LIFETIME-USE SMARTSET# 71640 Completed 10/25/2008 Pneumococcal Vaccine: 50+ Years Completed [...] this encounter Medical Devices Implanted Type Area Cartography/Mapping Technician Device Identifier Shelf Expiration Date Model / Serial / Lot Power Port 8fr Sngl Lumen Plas - [id number] Implanted:Qty : 1 on 12/05/2024 by Taco Sanchez MD at [facility] Left: Chest CR BARD : PERIPHERAL VASCULAR [id number] 07/14/2025 [id number] / / [id number] documented as of this encounter Results * (ABNORMAL) URIC ACID (01/08/2025 7:36 AM EST) [facility] Uric Acid 1.9(L) 2.4 - 5.7 mg/dL 01/08/2025 2:31 PM EST LABORATORY [facility] Blood Venous blood specimen / Unknown Central Line / Unknown 01/08/2025 7:36 AM EST 01/08/2025 7:51 AM EST us Logan Plummer MD LAB BLOOD ORDERABLES Final Res ult LABORATORY [facility] [address] [place] [address] * (ABNORMAL) COMPREHENSIVE METABOLIC PANEL (01/08/2025 7:36 AM EST) [facility] BUN 8 6 - 20 mg/dL 01/08/2025 8:48 AM [facility] 56- CREATININE 0.5 0.5 - 1.0 mg/dL 01/08/2025 8:48 AM [facility] 56- EGFR >90 >=60 mL/min 01/08/2025 8:48 AM [facility] 56- Comment:eGFR is calculated b ased on the CKD-EPI 2020 equation. SODIUM 136 135 - 146 mmol/L 01/08/2025 8:48 AM [facility] 56- POTASSIUM 4.1 3.5 - 5.1 mmol/L 01/08/2025 8:48 AM [facility] 56- CHLORIDE 102 98 - 107 mmol/L 01/08/2025 8:48 AM [facility] 56- CO2 26 22 - 32 mmol/L 01/08/2025 8:48 AM [facility] 56- ANION GAP 8 7 - 15 mmol/L 01/08/2025 8:48 AM [facility] 56- GLUCOSE 95 70 - 120 mg/dL 01/08/2025 8:48 AM [facility] 56- Albumin 3.0(L) 3.8 - 5.0 g/dL 01/08/2025 8:48 AM [facility] 56- AST 23 10 - 35 U/L 01/08/2025 8:48 AM [facility] 56- Alkaline Phosphatase 116 35 - 130 U/L 01/08/2025 8:48 AM [facility] 56- Bilirubin, Total 0.2 <=1.2 mg/dL 01/08/2025 8:48 AM [facility] 56- CALCIUM 8.6 8.4 - 10.2 mg/dL 01/08/2025 8:48 AM [facility] 56- Protein 6.8 6.0 - 8.3 g/dL 01/08/2025 8:48 AM [facility] 56- ALT 20 10 - 35 U/L 01/08/2025 8:48 AM [facility] 56- Blood Venous blood specimen / Unknown Central Line / Unknown 01/08/2025 7:36 AM EST 01/08/2025 7:51 AM EST us Logan Plummer MD LAB BLOOD ORDERABLES Final Res ult LABORATORY [facility] 56-[address] [place] [address] * LD (01/08/2025 7:36 AM EST) LD 217 <=250 U/L 01/08/2025 2:3 1 PM EST LAB[facility]ATORY [facility] Blood Venous blood specimen / Unknown Central Line / Unknown 01/08/2025 7:36 AM EST 01/08/2025 7:51 AM EST Logan Plummer MD LAB BLOOD ORDERABLES Final Res ult LABORATORY [facility] [address] [place] [address] documented in this encounter Visit Diagnoses Diagnosis [...] mL documented in this encounter Care Teams Corporate Travel Agent Relationship Specialty Start Date End Date Stephany Gilbert CRNP [address] [place] [address] [place] [address] PCP - General Nurse Practitioner 02/02/23 documented as of this encounter
--- OUTSIDE RECORDS SUMMARY | 2025-02-26 17:11 | External Medical Summary | Summary of Care ---
Author Name Unknown Organization [facility] Address [address] [facility] [address] Phone [phone] Care Team Providers Care Gasoline Locomotive Crane Operator Name Role Phone Stephany Gilbert Primary [...] VEDOTIN INJ [place] INJECTION, Logan Person MD [address] [place] [address] [place] [address] Phone: tel: fax: Hematology/Oncology Treatment, [address] [address] Phone: tel: fax: Referral ID Status Reason Start Date Expiration Date V isits Requested Visits Authorized [id number] Authorized 11/29/2024 11/13/[phone] Encounter Details Date Type Department Care Team (Latest Contact Info) Description 12/18/2024 9:00 AM EST Hem/Onc Treatment Hematology/Oncolog y Treatment, [address] [phone] Kaykay Chair 8 Hem Onc [address] [place] [address] Encounter for antineoplastic chemotherapy*; Diffuse large [...] 01/29/2025 7:45 AM EDT Nurse Only Hematology/Oncology [address] [phone] Kaykay, Chair 1 Hem Onc [address] [place] [address] 01/29/2025 8:00 AM EDT Office Visit Hematology/Oncology [address] [place] [phone] Etelvina Mo CRNP 400 [facility] [place] [phone] 01/29/2025 8:30 AM EDT Hem/Onc Treatment Hematology/Oncology Treatment, [address] [phone] Kaykay, Chair 7 Hem Onc [address] [place] [address] 02/11/2025 12:45 PM EDT Imaging Radiology [facility] 1st [facility], [place] [address] [place] [address] 02/14/2025 10:00 AM EDT Office Visit Hematology/Oncology [facility] 200 [facility] [place] [phone] Logan Plummer MD 200 [facility] [place] [address] Scheduled Orders Name Type Priority Associated Diagnoses [...] D LEVEL ONCE IN A LIFETIME-USE SMARTSET# 80126 Completed 10/25/2008 Pneumococcal Vaccine: 50+ Years Completed [...] this encounter Medical Devices Implanted Type Area Dental Laboratory Worker Device Identifier Shelf Expiration Date Model / Serial / Lot Power Port 8fr Sngl Lumen Plas - [id number] Implanted:Qty : 1 on 12/05/2024 by Taco Sanchez MD at [facility] Left: Chest CR BARD : PERIPHERAL VASCULAR [id number] 07/14/2025 [id number] / / [id number] documented as of this encounter Results * (ABNORMAL) URIC ACID (01/08/2025 7:36 AM EST) [facility] Uric Acid 1.9(L) 2.4 - 5.7 mg/dL 01/08/2025 2:31 PM EST LABORATORY [facility] Blood Venous blood specimen / Unknown Central Line / Unknown 01/08/2025 7:36 AM EST 01/08/2025 7:51 AM EST us Logan Plummer MD LAB BLOOD ORDERABLES Final Res ult LABORATORY [facility] [address] [place] [address] * (ABNORMAL) COMPREHENSIVE METABOLIC PANEL (01/08/2025 7:36 AM EST) [facility] BUN 8 6 - 20 mg/dL 01/08/2025 8:48 AM [facility] 56- CREATININE 0.5 0.5 - 1.0 mg/dL 01/08/2025 8:48 AM [facility] 56- EGFR >90 >=60 mL/min 01/08/2025 8:48 AM [facility] 56- Comment:eGFR is calculated b ased on the CKD-EPI 2020 equation. SODIUM 136 135 - 146 mmol/L 01/08/2025 8:48 AM [facility] 56- POTASSIUM 4.1 3.5 - 5.1 mmol/L 01/08/2025 8:48 AM [facility] 56- CHLORIDE 102 98 - 107 mmol/L 01/08/2025 8:48 AM [facility] 56- CO2 26 22 - 32 mmol/L 01/08/2025 8:48 AM [facility] 56- ANION GAP 8 7 - 15 mmol/L 01/08/2025 8:48 AM [facility] 56- GLUCOSE 95 70 - 120 mg/dL 01/08/2025 8:48 AM [facility] 56- Albumin 3.0(L) 3.8 - 5.0 g/dL 01/08/2025 8:48 AM [facility] 56- AST 23 10 - 35 U/L 01/08/2025 8:48 AM [facility] 56- Alkaline Phosphatase 116 35 - 130 U/L 01/08/2025 8:48 AM [facility] 56- Bilirubin, Total 0.2 <=1.2 mg/dL 01/08/2025 8:48 AM [facility] 56- CALCIUM 8.6 8.4 - 10.2 mg/dL 01/08/2025 8:48 AM [facility] 56- Protein 6.8 6.0 - 8.3 g/dL 01/08/2025 8:48 AM [facility] 56- ALT 20 10 - 35 U/L 01/08/2025 8:48 AM [facility] 56- Blood Venous blood specimen / Unknown Central Line / Unknown 01/08/2025 7:36 AM EST 01/08/2025 7:51 AM EST us Logan Plummer MD LAB BLOOD ORDERABLES Final Res ult LABORATORY [place] 56-[address] [place] [address] * LD (01/08/2025 7:36 AM EST) LD 217 <=250 U/L 01/08/2025 2:3 1 PM EST LABORATORY [facility] Blood Venous blood specimen / Unknown Central Line / Unknown 01/08/2025 7:36 AM EST 01/08/2025 7:51 AM EST Logan Plummer MD LAB BLOOD ORDERABLES Final Res ult LABORATORY [facility] [address] [place] [address] documented in this encounter Visit Diagnoses Diagnosis [...] mL documented in this encounter 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
--- OUTSIDE RECORDS SUMMARY | 2025-02-26 17:11 | External Medical Summary | Summary of Care ---
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) Prevention of chemotherapy-induced neutropenia Procedures [place] INJECTION, RITUXIMAB-PVVR, BIOSIMILAR, (RUXIENCE), 10 MG [place] INJ CYCLOPHOSPHAMD [facility]UROMEDIC [place] BRENTUXIMAB VEDOTIN INJ [place] INJECTION, Logan Person MD [address] [place] [address], [place] [address] Phone: tel: fax: Hematology/Oncology Treatment, [address] [address] Phone: tel: fax: Referral ID Status Reason Start Date Expiration Date V isits Requested Visits Authorized [id number] Authorized 11/29/2024 11/13/[phone] Encounter Details Date Type Department Care Team (Latest Contact Info) Description 01/09/2025 2:00 PM EST Immunization/ Injection Hematology/Oncology Treatment, [address] [phone] Kaykay, Chair 6 Hem On[address] [place] [address] Encounter for antineoplastic chemotherapy*; Diffuse large [...] as of this encounter Nursing Notes * Edith Michel LPN - 01/09/2025 1:59 PM EST 1345: Pt arrived for fulphila injection. Administered in [place]. Pt tolerated well. To return in 3 weeks. Discharged in stable condition. documented in this encounter Plan of Treatment Upcoming Encounters Date Type Department Care Team (Late st Contact Info) Description 01/29/2025 7:45 AM EDT Nurse Only Hematology/Oncology Treatment, [address] [phone] Kaykay, Chair 1 Hem Onc [address] [place] [address] 01/29/2025 8:00 AM EDT Office Visit Hematology/Oncology [address] [phone] Etelvina Mo CRNP [address] [place] [address] [place] [address] 01/29/2025 8:30 AM EDT Hem/Onc Treatment Hematology/Oncology Treatment, [address] [phone] Kaykay, Chair 7 Hem Onc [address] [place] [address] 02/11/2025 12:45 PM EDT Imaging Radiology [facility] 1st [facility] [address] [place] [phone] 02/14/2025 10:00 AM EDT Office Visit Hematology/Oncology [facility] 200 [facility] [place] [phone] Logan Plummer MD 200 [facility] [place] [address] Scheduled Procedures Name Priority Associated Diagnoses Date/Ti [...] D LEVEL ONCE IN A LIFETIME-USE SMARTSET# 40442 Completed 10/25/2008 Pneumococcal Vaccine: 50+ Years Completed [...] this encounter Medical Devices Implanted Type Area Universal Worker Assisted Living Device Identifier Shelf Expiration Date Model / Serial / Lot Power Port 8fr Sngl Lumen Plas - [id number] Implanted:Qty : 1 on 12/05/2024 by Taco Sanchez MD at OR 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) Prevention of chemotherapy-induced neutropenia documented in this encounter Administered Medications Inactive Administered Medications - up to 3 most recent administrations Medication Order MAR Action Action Date Dose Rate Site Pegfilgrastim-jmdb (Fulphila) inj 6 mg 6 mg, Subcutaneous, ONCE, On Tue01/09/25 at 1430, For 1 doseIndications:Encounter for antineoplastic chemotherapy,Diffuse large 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
--- OUTSIDE RECORDS SUMMARY | 2025-02-26 17:11 | External Medical Summary | Summary of Care ---
Author Name Unknown Organization [facility] Address [address] [facility] [address] Phone [phone] Care Team Providers Care Machining Manager Name Role Phone Stephany Gilbert Primary [...] INJ [place] INJECTION, Logan Person MD 200 [facility] [place] [address] Phone: tel: fax: Hematology/Oncology Treatment, [address] [address] Phone: tel: fax: Referral ID Status Reason Start Date Expiration Date V isits Requested Visits Authorized [id number] Authorized 11/29/2024 11/13/[phone] Encounter Details Date Type Department Care Team (Latest Contact Info) Description 01/08/2025 8:30 AM EST Hem/Onc Treatment Hematology/Oncolog y Treatment, [address] [place] [address] Kaykay, Chair 9 Hem Onc Scenery [address] [place] [address] Prevention of chemotherapy-induced neutropenia*; Diffuse large B-cell [...] 7:45 AM EDT Nurse Only Hematology/Oncology Treatment, [address] [phone] Kaykay, Chair 1 Hem Onc [address] [place] [address] 01/29/2025 8:00 AM EDT Office Visit Hematology/Oncology [facility] [address] [place] [phone] Etelvina Mo CRNP [facility] [address] 01/29/2025 8:30 AM EDT Hem/Onc Treatment Hematology/Oncology Treatment, [address] [place] [phone] Kaykay, Chair 7 Hem Onc [address] [place] [address] 02/11/2025 12:45 PM EDT Imaging Radiology [address], [place] [address] [place] [phone] 02/14/2025 10:00 AM EDT Office Visit Hematology/Oncology [facility] [place] [address] [place] [phone] Logan Plummer MD 200 [facility] [place] [address] Scheduled Procedures Name Priority Associated Diagnoses Date/Ti [...] D LEVEL ONCE IN A LIFETIME-USE SMARTSET# 64959 Completed 10/25/2008 Pneumococcal Vaccine: 50+ Years Completed [...] this encounter Medical Devices Implanted Type Area Fiberglass Fabricator Device Identifier Shelf Expiration Date Model / Serial / Lot Power Port 8fr Sngl Lumen Plas - [id number] Implanted:Qty : 1 on 12/05/2024 by Taco Sanchez MD at OR [facility] Left: Chest CR BARD : PERIPHERAL VASCULAR [id number] 07/14/2025 [id number] / / [id number] documented as of this encounter Procedures Procedure [...] 150 ng/mL 01/08/2025 3:29 PM EST LABORATORY [facility] Comment:Postmenopausal women have higher ferritin levels than pre-menopausal women. The above reference interval is based on pre-menopausal women. Blood Venous blood specimen / Unknown Central Line / Unknown 01/08/2025 7:36 AM EST 01/08/2025 7:51 AM EST us Logan Plummer MD LAB BLOOD ORDERABLES Final Res ult LABORATORY [facility] [address] [place] [address] * (ABNORMAL) IRON SCREEN, INCLUDING TIBC (01/08/2025 7:36 AM EST) Pathologist [facility] Iron 36 33 - 151 ug/dL 01/08/2025 [...] LAB BLOOD ORDERABLES Final Res ult LABORATORY [facility] [address] [place] [address] * (ABNORMAL) DIFFERENTIAL, TECHNOLOGIST REVIEW (01/08/2025 7:36 AM EST) [facility] WBC 11.34(H) 4.00 - 10.80 K/uL 01/08/2025 8:13 AM EST [facility] 56-02 Neutrophils % 73.0 40.0 - 75.0 % 01/08/2025 8:13 AM EST [facility] 56-02 Lymphocytes % 8.0(L) 18.0 - 42.0 % 01/08/2025 8:13 AM EST [facility] 56-02 Monocytes % 16.0(H) 1.0 - 11.0 % 01/08/2025 8:13 AM EST [facility] 56-02 Metamyelocytes % 3.0(H) <=0.0 % 01/08/20 8:13 AM EST [facility] 56-02 Absolute Neutrophils 8.28(H) 1.80 - 7.70 K/uL 01/08/2025 8:13 AM EST [facility] 56-02 Absolute Lymphocytes 0.91(L) 1.00 - 4.80 K/uL 01/08/2025 8:13 AM EST [facility] 56-02 Absolute Monocytes 1.81(H) 0.00 - 1.10 K/uL 01/08/2025 8:13 AM EST [facility] 56 Absolute Metamyelocytes 0.34(H) <=0.00 K/uL 01/08/2025 8:13 AM EST [facility] 56- nRBCs 01/08/2025 8:13 AM EST [facility] 56- Elliptocytes Moderate( A) None Seen 01/08/2025 8:13 AM EST [facility] Polychromasia Moderate( A) None Seen 01/08/2025 8:13 AM EST [facility] 56 Blood Venous blood specimen / Unknown Central Line / Unknown 01/08/2025 7:36 AM EST 01/08/2025 7:51 AM EST us Logan Plummer MD LAB BLOOD ORDERABLES Final Res ult [facility] [address] [place] [address] * DIFFERENTIAL, AUTOMATED (01/08/2025 7:36 AM EST) Blood Venous blood specimen / Unknown Central Line / Unknown 01/08/2025 7:36 AM EST 01/08/2025 7:51 AM EST us Logan Plummer MD LAB BLOOD ORDERABLES Final Res ult [facility] [address] [place] [id number] * (ABNORMAL) CBC (01/08/2025 7:36 AM EST) WBC 11.34(H) 4.00 - 10.80 K/uL 01/08/2025 8:13 AM EST [facility] RBC 3.12 3.85 - 5.15 M/uL 01/08/2025 8:13 AM EST [facility] HGB 8.6(L) 12.0 - 15.3 g/dL 01/08/2025 8:13 AM EST [facility] HCT 29.0(L) 36.0 - 45.2 % 01/08/2025 8:13 AM [facility] 56- MCV 92.9 81.5 - 97.5 fL 01/08/2025 8:13 AM [facility] 56- MCH 27.6 27.0 - 34.0 pg 01/08/2025 8:13 AM [facility] 56- MCHC 29.7 32.0 - 36.0 g/dL 01/08/2025 8:13 AM [facility] 56- RDW 18.8 11.5 - 15.5 % 01/08/2025 8:13 AM [facility] 56- PLT 483(H) 140 - 400 K/uL 01/08/2025 8:13 AM [facility] 56- MPV 8.4 6.6 - 11.1 fL 01/08/2025 8:13 AM [facility] 56- Blood Venous blood specimen / Unknown Central Line / Unknown 01/08/2025 7:36 AM EST 01/08/2025 7:51 AM EST Logan Plummer MD LAB BLOOD ORDERABLES Final Res ult [facility] 56-02 [address] [place] [address] * (ABNORMAL) URIC ACID (01/08/2025 7:36 AM EST) Uric Acid 1.9(L) 2.4 - 5.7 mg/dL 01/08/2025 2:31 PM EST LABORATORY [facility] Blood Venous blood specimen / Unknown Central Line / Unknown 01/08/2025 7:36 AM EST 01/08/2025 7:51 AM EST Logan Plummer MD LAB BLOOD ORDERABLES Final Res ult LABORATORY [facility] [address] [place] [address] * (ABNORMAL) COMPREHENSIVE METABOLIC PANEL (01/08/2025 7:36 AM EST) BUN 8 6 - 20 mg/dL 01/08/2025 8:48 AM [facility] 56- CREATININE 0.5 0.5 - 1.0 mg/dL 01/08/2025 8:48 AM [facility] 56- EGFR >90 >=60 mL/min 01/08/2025 8:48 AM [facility] 56- Comment:eGFR is calculated b ased on the CKD-EPI 2020 equation. SODIUM 136 135 - 146 mmol/L 01/08/2025 8:48 AM [facility] 56- POTASSIUM 4.1 3.5 - 5.1 mmol/L 01/08/2025 8:48 AM [facility] 56- CHLORIDE 102 98 - 107 mmol/L 01/08/2025 8:48 AM [facility] 56- CO2 26 22 - 32 mmol/L 01/08/2025 8:48 AM [facility] [place] 56- ANION GAP 8 7 - 15 mmol/L 01/08/2025 8:48 AM [facility] 56- GLUCOSE 95 70 - 120 mg/dL 01/08/2025 8:48 AM [facility] 56- Albumin 3.0(L) 3.8 - 5.0 g/dL 01/08/2025 8:48 AM [facility] 56- AST 23 10 - 35 U/L 01/08/2025 8:48 AM [facility] 56- Alkaline Phosphatase 116 35 - 130 U/L 01/08/2025 8:48 AM [facility] 56- Bilirubin, Total 0.2 <=1.2 mg/dL 01/08/2025 8:48 AM [facility] 56- CALCIUM 8.6 8.4 - 10.2 mg/dL 01/08/2025 8:48 AM [facility] [place] 56- Protein 6.8 6.0 - 8.3 g/dL 01/08/2025 8:48 AM [facility] 56- ALT 20 10 - 35 U/L 01/08/2025 8:48 AM [facility] 56- Blood Venous blood specimen / Unknown Central Line / Unknown 01/08/2025 7:36 AM EST 01/08/2025 7:51 AM EST us Logan Plummer MD LAB BLOOD ORDERABLES Final Res ult LABORATORY [facility] 56-[address] [place] [address] * LD (01/08/2025 7:36 AM EST) LD 217 <=250 U/L 01/08/2025 2:3 1 PM EST LABORATORY [facility] Blood Venous blood specimen / Unknown Central Line / Unknown 01/08/2025 7:36 AM EST 01/08/2025 7:51 AM EST us Logan Plummer MD LAB BLOOD ORDERABLES Final Res ult LABORATORY [facility] [address] [place] [address] documented in this encounter Visit Diagnoses Diagnosis [...] mL documented in this encounter Care Teams Machining Manager Relationship Specialty Start Date End Date Stephany Gilbert CRNP [address] [place] [address] [place] [address] PCP - General Nurse Practitioner 02/02/23 documented as of this encounter
--- OUTSIDE RECORDS SUMMARY | 2025-02-26 17:11 | External Medical Summary | Summary of Care ---
Author Name Unknown Organization [facility] Address [address] [facility] [address] Phone [phone] Care Team Providers Care Lift Driver Name Role Phone Stephany Gilbert Primary [...] VEDOTIN INJ [place] INJECTION, Logan Person MD [address] [place] [address] [place] [address] Phone: tel: fax: Hematology/Oncology Treatment, [address] [address] Phone: tel: fax: Referral ID Status Reason Start Date Expiration Date V isits Requested Visits Authorized [id number] Authorized 11/29/2024 11/13/[phone] Encounter Details Date Type Department Care Team (Latest Contact Info) Description 12/18/2024 9:00 AM EST Hem/Onc Treatment Hematology/Oncolog y Treatment, [address] [phone] Kaykay Chair 8 Hem On[address] [place] [address] Encounter for antineoplastic chemotherapy*; Diffuse large [...] 01/29/2025 7:45 AM EDT Nurse Only Hematology/Oncology [address] [phone] Kaykay, Chair 1 Hem Onc [address] [place] [address] 01/29/2025 8:00 AM EDT Office Visit Hematology/Oncology [address] [place] [phone] Etelvina Mo CRNP 400 [facility] [place] [phone] 01/29/2025 8:30 AM EDT Hem/Onc Treatment Hematology/Oncology [address], [address] [phone] Kaykay, Chair 7 Hem Onc [address] [place] [address] 02/11/2025 12:45 PM EDT Imaging Radiology [facility] 1st [facility], [place] [address] [place] [phone] 02/14/2025 10:00 AM EDT Office Visit Hematology/Oncology [facility] 200 [facility] [place] [phone] Logan Plummer MD 200 [facility] [place] [address] Scheduled Orders Name Type Priority Associated Diagnoses [...] D LEVEL ONCE IN A LIFETIME-USE SMARTSET# 94336 Completed 10/25/2008 Pneumococcal Vaccine: 50+ Years Completed [...] this encounter Medical Devices Implanted Type Area Aviation Safety Technician Device Identifier Shelf Expiration Date Model / Serial / Lot Power Port 8fr Sngl Lumen Plas - [id number] Implanted:Qty : 1 on 12/05/2024 by Taco Sanchez MD at [facility] Left: Chest CR BARD : PERIPHERAL VASCULAR [id number] 07/14/2025 [id number] / / [id number] documented as of this encounter Results * (ABNORMAL) URIC ACID (01/08/2025 7:36 AM EST) [facility] Uric Acid 1.9(L) 2.4 - 5.7 mg/dL 01/08/2025 2:31 PM EST LABORATORY [facility] Blood Venous blood specimen / Unknown Central Line / Unknown 01/08/2025 7:36 AM EST 01/08/2025 7:51 AM EST us Logan Plummer MD LAB BLOOD ORDERABLES Final Res ult LABORATORY [facility] [address] [place] [address] * (ABNORMAL) COMPREHENSIVE METABOLIC PANEL (01/08/2025 7:36 AM EST) [facility] BUN 8 6 - 20 mg/dL 01/08/2025 8:48 AM [facility] 56- CREATININE 0.5 0.5 - 1.0 mg/dL 01/08/2025 8:48 AM [facility] 56- EGFR >90 >=60 mL/min 01/08/2025 8:48 AM [facility] 56- Comment:eGFR is calculated b ased on the CKD-EPI 2020 equation. SODIUM 136 135 - 146 mmol/L 01/08/2025 8:48 AM [facility] 56- POTASSIUM 4.1 3.5 - 5.1 mmol/L 01/08/2025 8:48 AM [facility] 56- CHLORIDE 102 98 - 107 mmol/L 01/08/2025 8:48 AM [facility] 56- CO2 26 22 - 32 mmol/L 01/08/2025 8:48 AM [facility] 56- ANION GAP 8 7 - 15 mmol/L 01/08/2025 8:48 AM [facility] 56- GLUCOSE 95 70 - 120 mg/dL 01/08/2025 8:48 AM [facility] 56- Albumin 3.0(L) 3.8 - 5.0 g/dL 01/08/2025 8:48 AM [facility] 56- AST 23 10 - 35 U/L 01/08/2025 8:48 AM [facility] 56- Alkaline Phosphatase 116 35 - 130 U/L 01/08/2025 8:48 AM [facility] 56- Bilirubin, Total 0.2 <=1.2 mg/dL 01/08/2025 8:48 AM [facility] 56- CALCIUM 8.6 8.4 - 10.2 mg/dL 01/08/2025 8:48 AM [facility] 56- Protein 6.8 6.0 - 8.3 g/dL 01/08/2025 8:48 AM [facility] 56- ALT 20 10 - 35 U/L 01/08/2025 8:48 AM [facility] 56- Blood Venous blood specimen / Unknown Central Line / Unknown 01/08/2025 7:36 AM EST 01/08/2025 7:51 AM EST us Logan Plummer MD LAB BLOOD ORDERABLES Final Res ult LABORATORY [facility] 56-[address] [place] [address] * LD (01/08/2025 7:36 AM EST) LD 217 <=250 U/L 01/08/2025 2:3 1 PM EST LABORATORY [facility] Blood Venous blood specimen / Unknown Central Line / Unknown 01/08/2025 7:36 AM EST 01/08/2025 7:51 AM EST Logan Plummer MD LAB BLOOD ORDERABLES Final Res ult LABORATORY [facility] [address] [place] [address] documented in this encounter Visit Diagnoses Diagnosis [...] mL documented in this encounter Care Teams Lift Driver Relationship Specialty Start Date End Date Stephany Gilbert CRNP [address] [place] [address] [place] [address] PCP - General Nurse Practitioner 02/02/23 documented as of this encounter
--- OUTSIDE RECORDS SUMMARY | 2025-02-26 17:11 | External Medical Summary | Summary of Care ---
Author Name Unknown Organization [facility] Address [address] [facility] [address] Phone [phone] Care Team Providers Care Power Plant Superintendent Name Role Phone Stephany Gilbert Primary Care [...] VEDOTIN INJ [place] INJECTION, Logan Person MD [address] [place] [address] [place] [address] Phone: tel: fax: Hematology/Oncology Treatment, [address] [address] Phone: tel: fax: Referral ID Status Reason Start Date Expiration Date V isits Requested Visits Authorized [id number] Authorized 11/29/2024 11/13/[phone] Encounter Details Date Type Department Care Team (Latest Contact Info) Description 12/18/2024 9:00 AM EST Hem/Onc Treatment Hematology/Oncolog y Treatment, [address] [phone] Kaykay Chair 8 Hem Onc [address] [place] [address] Encounter for antineoplastic chemotherapy*; Diffuse large [...] 01/29/2025 7:45 AM EDT Nurse Only Hematology/Oncology [address] [phone] Kaykay, Chair 1 Hem Onc [address] [place] [address] 01/29/2025 8:00 AM EDT Office Visit Hematology/Oncology [address] [place] [phone] Etelvina Mo CRNP 400 [facility] [place] [phone] 01/29/2025 8:30 AM EDT Hem/Onc Treatment Hematology/Oncology Treatment, [address] [phone] Kaykay, Chair 7 Hem Onc [address] [place] [address] 02/11/2025 12:45 PM EDT Imaging Radiology [facility] 1st [facility], [place] [address] [place] [phone] 02/14/2025 10:00 AM EDT Office Visit Hematology/Oncology [facility] 200 [facility] [place] [phone] Logan Plummer MD 200 [facility] [place] [address] Scheduled Orders Name Type Priority Associated Diagnoses [...] D LEVEL ONCE IN A LIFETIME-USE SMARTSET# 53827 Completed 10/25/2008 Pneumococcal Vaccine: 50+ Years Completed [...] this encounter Medical Devices Implanted Type Area Screen And Cyclone Repairer Device Identifier Shelf Expiration Date Model / Serial / Lot Power Port 8fr Sngl Lumen Plas - [id number] Implanted:Qty : 1 on 12/05/2024 by Taco Sanchez MD at [facility] Left: Chest CR BARD : PERIPHERAL VASCULAR [id number] 07/14/2025 [id number] / / [id number] documented as of this encounter Results * (ABNORMAL) URIC ACID (01/08/2025 7:36 AM EST) [facility] Uric Acid 1.9(L) 2.4 - 5.7 mg/dL 01/08/2025 2:31 PM EST LABORATORY [facility] Blood Venous blood specimen / Unknown Central Line / Unknown 01/08/2025 7:36 AM EST 01/08/2025 7:51 AM EST us Logan Plummer MD LAB BLOOD ORDERABLES Final Res ult LABORATORY [facility] [address] [place] [address] * (ABNORMAL) COMPREHENSIVE METABOLIC PANEL (01/08/2025 7:36 AM EST) [facility] BUN 8 6 - 20 mg/dL 01/08/2025 8:48 AM [facility] 56- CREATININE 0.5 0.5 - 1.0 mg/dL 01/08/2025 8:48 AM [facility] 56- EGFR >90 >=60 mL/min 01/08/2025 8:48 AM [facility] 56- Comment:eGFR is calculated b ased on the CKD-EPI 2020 equation. SODIUM 136 135 - 146 mmol/L 01/08/2025 8:48 AM [facility] 56- POTASSIUM 4.1 3.5 - 5.1 mmol/L 01/08/2025 8:48 AM [facility] 56- CHLORIDE 102 98 - 107 mmol/L 01/08/2025 8:48 AM [facility] 56- CO2 26 22 - 32 mmol/L 01/08/2025 8:48 AM [facility] 56- ANION GAP 8 7 - 15 mmol/L 01/08/2025 8:48 AM [facility] 56- GLUCOSE 95 70 - 120 mg/dL 01/08/2025 8:48 AM [facility] 56- Albumin 3.0(L) 3.8 - 5.0 g/dL 01/08/2025 8:48 AM [facility] 56- AST 23 10 - 35 U/L 01/08/2025 8:48 AM [facility] 56- Alkaline Phosphatase 116 35 - 130 U/L 01/08/2025 8:48 AM [facility] 56- Bilirubin, Total 0.2 <=1.2 mg/dL 01/08/2025 8:48 AM [facility] 56- CALCIUM 8.6 8.4 - 10.2 mg/dL 01/08/2025 8:48 AM [facility] 56- Protein 6.8 6.0 - 8.3 g/dL 01/08/2025 8:48 AM [facility] 56- ALT 20 10 - 35 U/L 01/08/2025 8:48 AM [facility] 56- Blood Venous blood specimen / Unknown Central Line / Unknown 01/08/2025 7:36 AM EST 01/08/2025 7:51 AM EST us Logan Plummer MD LAB BLOOD ORDERABLES Final Res ult LABORATORY [facility] 56-[address] [place] [address] * LD (01/08/2025 7:36 AM EST) LD 217 <=250 U/L 01/08/2025 2:3 1 PM EST LABORATORY [facility] Blood Venous blood specimen / Unknown Central Line / Unknown 01/08/2025 7:36 AM EST 01/08/2025 7:51 AM EST Logan Plummer MD LAB BLOOD ORDERABLES Final Res ult LABORATORY [facility] [address] [place] [address] documented in this encounter Visit Diagnoses Diagnosis [...] mL documented in this encounter Care Teams Power Plant Superintendent Relationship Specialty Start Date End Date Stephany Gilbert CRNP [address] [place] [address] [place] [address] PCP - General Nurse Practitioner 02/02/23 documented as of this encounter
--- OUTSIDE RECORDS SUMMARY | 2025-02-26 17:11 | External Medical Summary | Summary of Care ---
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 (HCC) Prevention of chemotherapy-induced neutropenia Procedures [place] INJECTION, RITUXIMAB-PVVR, BIOSIMILAR, (RUXIENCE), 10 MG [place] INJ CYCLOPHOSPHAMD AUROMEDIC [place] BRENTUXIMAB VEDOTIN INJ [place] INJECTION, Logan Person MD [address] [place] [address] [place] [address] Phone: tel: fax: Hematology/Oncology Treatment, [address] [address] Phone: tel: fax: Referral ID Status Reason Start Date Expiration Date V isits Requested Visits Authorized [id number] Authorized 11/29/2024 11/13/[phone] Encounter Details Date Type Department Care Team (Latest Contact Info) Description 12/18/2024 9:00 AM EST Hem/Onc Treatment Hematology/Oncolog y Treatment, [address] [address] Kaykay Chair 8 Hem Onc [address] [place] [address] Encounter for antineoplastic chemotherapy*; Diffuse large [...] 01/29/2025 7:45 AM EDT Nurse Only Hematology/Oncology [address] [phone] Kaykay, Chair 1 Hem Onc [address] [place] [address] 01/29/2025 8:00 AM EDT Office Visit Hematology/Oncology [address] [place] [phone] Etelvina Mo CRNP [address] [facility] [place] [id number] 01/29/2025 8:30 AM EDT Hem/Onc Treatment Hematology/Oncology Treatment, [address] [address] Kaykay, Chair 7 Hem Onc [address] [place] [address] 02/11/2025 12:45 PM EDT Imaging Radiology [facility] 1st [facility], [place] [address] [place] [address] 02/14/2025 10:00 AM EDT Office Visit Hematology/Oncology [facility] [address] [facility] [place] [phone] Logan Plummer MD [address] [facility] [place] [address] Scheduled Orders Name Type Priority Associated Diagnoses [...] D LEVEL ONCE IN A LIFETIME-USE SMARTSET# [id number] Completed 10/25/2008 Pneumococcal Vaccine: 50+ Years Completed [...] this encounter Medical Devices Implanted Type Area Barrel Endshake Adjuster Device Identifier Shelf Expiration Date Model / Serial / Lot Power Port 8fr Sngl Lumen Plas - [id number] Implanted:Qty : 1 on 12/05/2024 by Taco Sanchez MD at [facility] Left: Chest CR BARD : PERIPHERAL VASCULAR [id number] 07/14/2025 [id number] / / [id number] documented as of this encounter Results * (ABNORMAL) URIC ACID (01/08/2025 7:36 AM EST) [facility] Uric Acid 1.9(L) 2.4 - 5.7 mg/dL 01/08/2025 2:31 PM EST LABORATORY [facility] Blood Venous blood specimen / Unknown Central Line / Unknown 01/08/2025 7:36 AM EST 01/08/2025 7:51 AM EST us Logan Plummer MD LAB BLOOD ORDERABLES Final Res ult LABORATORY [facility] [address] [place] [address] * (ABNORMAL) COMPREHENSIVE METABOLIC PANEL (01/08/2025 7:36 AM EST) [facility] BUN 8 6 - 20 mg/dL 01/08/2025 8:48 AM [facility] 56- CREATININE 0.5 0.5 - 1.0 mg/dL 01/08/2025 8:48 AM [facility] 56- EGFR >90 >=60 mL/min 01/08/2025 8:48 AM [facility] 56- Comment:eGFR is calculated b ased on the CKD-EPI 2020 equation. SODIUM 136 135 - 146 mmol/L 01/08/2025 8:48 AM [facility] 56- POTASSIUM 4.1 3.5 - 5.1 mmol/L 01/08/2025 8:48 AM [facility] 56- CHLORIDE 102 98 - 107 mmol/L 01/08/2025 8:48 AM [facility] 56- CO2 26 22 - 32 mmol/L 01/08/2025 8:48 AM [facility] 56- ANION GAP 8 7 - 15 mmol/L 01/08/2025 8:48 AM [facility] 56- GLUCOSE 95 70 - 120 mg/dL 01/08/2025 8:48 AM [facility] 56- Albumin 3.0(L) 3.8 - 5.0 g/dL 01/08/2025 8:48 AM [facility] 56- AST 23 10 - 35 U/L 01/08/2025 8:48 AM [facility] 56- Alkaline Phosphatase 116 35 - 130 U/L 01/08/2025 8:48 AM [facility] 56- Bilirubin, Total 0.2 <=1.2 mg/dL 01/08/2025 8:48 AM [facility] 56- CALCIUM 8.6 8.4 - 10.2 mg/dL 01/08/2025 8:48 AM [facility] 56- Protein 6.8 6.0 - 8.3 g/dL 01/08/2025 8:48 AM [facility] 56- ALT 20 10 - 35 U/L 01/08/2025 8:48 AM [facility] 56- Blood Venous blood specimen / Unknown Central Line / Unknown 01/08/2025 7:36 AM EST 01/08/2025 7:51 AM EST us Logan Plummer MD LAB BLOOD ORDERABLES Final Res ult LABORATORY [facility] 56-[address] [place] [address] * LD (01/08/2025 7:36 AM EST) LD 217 <=250 U/L 01/08/2025 2:3 1 PM EST LABORATORY [facility] Blood Venous blood specimen / Unknown Central Line / Unknown 01/08/2025 7:36 AM EST 01/08/2025 7:51 AM EST Logan Plummer MD LAB BLOOD ORDERABLES Final Res ult LABORATORY [facility] [address] [place] [address] documented in this encounter Visit Diagnoses Diagnosis [...] mL documented in this encounter Care Teams Ekg Tech Relationship Specialty Start Date End Date Stephany Gilbert CRNP [address] [place] [address] [place] [address] PCP - General Nurse Practitioner 02/02/23 documented as of this encounter
--- OUTSIDE RECORDS SUMMARY | 2025-02-26 17:11 | External Medical Summary | Summary of Care ---
Author Name Unknown Organization [facility] Address [address] [facility] [address] Phone [phone] Care Team Providers Care Parachute Harness Rigger Name Role Phone Stephany Gilbert Primary [...] neck (HCC) Prevention of chemotherapy-induced neutropenia Procedures [place] INJECTION, RITUXIMAB-PVVR, BIOSIMILAR, (RUXIENCE), 10 MG [place] INJ CYCLOPHOSPHAMD AUROMEDIC [place] BRENTUXIMAB VEDOTIN INJ [place] INJECTION, Logan Person MD 200 [facility] [place] [address] Phone: tel: fax: Hematology/Oncology Treatment, [address] [address] Phone: tel: fax: Referral ID Status Reason Start Date Expiration Date V isits Requested Visits Authorized [id number] Authorized 11/29/2024 11/13/[phone] Encounter Details Date Type Department Care Team (Latest Contact Info) Description 01/08/2025 8:30 AM EST Hem/Onc Treatment Hematology/Oncolog y Treatment, [address] [place] [address] Kaykay, Chair 9 Hem Onc Scenery [address] [place] [address] Prevention of chemotherapy-induced neutropenia*; Diffuse large B-cell [...] 7:45 AM EDT Nurse Only Hematology/Oncology Treatment, [address] [phone] Kaykay, Chair 1 Hem Onc [address] [place] [address] 01/29/2025 8:00 AM EDT Office Visit Hematology[facility]Oncology [facility] [address] [place] [phone] Etelvina Mo CRNP [facility] [address] 01/29/2025 8:30 AM EDT Hem/Onc Treatment Hematology/Oncology Treatment, [address] [place] [phone] Kaykay, Chair 7 Hem Onc [address] [place] [address] 02/11/2025 12:45 PM EDT Imaging Radiology [address], [place] [address] [place] [phone] 02/14/2025 10:00 AM EDT Office Visit Hematology/Oncology [facility] [place] [address] [place] [phone] Logan [facility]mer [facility] [place] [address] Scheduled Procedures Name Priority Associated Diagnoses Date/Ti [...] D LEVEL ONCE IN A LIFETIME-USE SMARTSET# [id number] Completed 10/25/2008 Pneumococcal Vaccine: 50+ Years Completed [...] this encounter Medical Devices Implanted Type Area Geophysical Laboratory Supervisor Device Identifier Shelf Expiration Date Model / Serial / Lot Power Port 8fr Sngl Lumen Plas - [id number] Implanted:Qty : 1 on 12/05/2024 by Taco Sanchez MD at [facility] Left: Chest CR BARD : PERIPHERAL VASCULAR [id number] 07/14/2025 [id number] / / [id number] documented as of this encounter Procedures Procedure [...] 150 ng/mL 01/08/2025 3:29 PM EST LABORATORY [facility] Comment:Postmenopausal women have higher ferritin levels than pre-menopausal women. The above reference interval is based on pre-menopausal women. Blood Venous blood specimen / Unknown Central Line / Unknown 01/08/2025 7:36 AM EST 01/08/2025 7:51 AM EST us Logan Plummer MD LAB BLOOD ORDERABLES Final Res ult LABORATORY [facility] [address] [place] [address] * (ABNORMAL) IRON SCREEN, INCLUDING TIBC (01/08/2025 7:36 AM EST) Pathologist [facility] Iron 36 33 - 151 ug/dL 01/08/2025 [...] LAB BLOOD ORDERABLES Final Res ult LABORATORY [facility] [address] [place] [address] * (ABNORMAL) DIFFERENTIAL, TECHNOLOGIST REVIEW (01/08/2025 7:36 AM EST) [facility] WBC 11.34(H) 4.00 - 10.80 K/uL 01/08/2025 8:13 AM EST [facility] 56-02 Neutrophils % 73.0 40.0 - 75.0 % 01/08/2025 8:13 AM EST [facility] 56-02 Lymphocytes % 8.0(L) 18.0 - 42.0 % 01/08/2025 8:13 AM EST [facility] 56-02 Monocytes % 16.0(H) 1.0 - 11.0 % 01/08/2025 8:13 AM EST [facility] 56-02 Metamyelocytes % 3.0(H) <=0.0 % 01/08/20 8:13 AM EST [facility] 56-02 Absolute Neutrophils 8.28(H) 1.80 - 7.70 K/uL 01/08/2025 8:13 AM EST [facility] 56-02 Absolute Lymphocytes 0.91(L) 1.00 - 4.80 K/uL 01/08/2025 8:13 AM EST [facility] 56-02 Absolute Monocytes 1.81(H) 0.00 - 1.10 K/uL 01/08/2025 8:13 AM EST [facility] 56 Absolute Metamyelocytes 0.34(H) <=0.00 K/uL 01/08/2025 8:13 AM EST [facility] 56- nRBCs 01/08/2025 8:13 AM EST [facility] 56- Elliptocytes Moderate( A) None Seen 01/08/2025 8:13 AM EST [facility] Polychromasia Moderate( A) None Seen 01/08/2025 8:13 AM EST [facility] 56 Blood Venous blood specimen / Unknown Central Line / Unknown 01/08/2025 7:36 AM EST 01/08/2025 7:51 AM EST us Logan Plummer MD LAB BLOOD ORDERABLES Final Res ult [facility] [address] [place] [address] * DIFFERENTIAL, AUTOMATED (01/08/2025 7:36 AM EST) Blood Venous blood specimen / Unknown Central Line / Unknown 01/08/2025 7:36 AM EST 01/08/2025 7:51 AM EST us Logan Plummer MD LAB BLOOD ORDERABLES Final Res ult [facility] [address] [place] [address] * (ABNORMAL) CBC (01/08/2025 7:36 AM EST) WBC 11.34(H) 4.00 - 10.80 K/uL 01/08/2025 8:13 AM EST [facility] RBC 3.12 3.85 - 5.15 M/uL 01/08/2025 8:13 AM EST [facility] HGB 8.6(L) 12.0 - 15.3 g/dL 01/08/2025 8:13 AM EST [facility] HCT 29.0(L) 36.0 - 45.2 % 01/08/2025 8:13 AM [facility] 56- MCV 92.9 81.5 - 97.5 fL 01/08/2025 8:13 AM [facility] 56- MCH 27.6 27.0 - 34.0 pg 01/08/2025 8:13 AM [facility] 56- MCHC 29.7 32.0 - 36.0 g/dL 01/08/2025 8:13 AM [facility] 56- RDW 18.8 11.5 - 15.5 % 01/08/2025 8:13 AM [facility] 56- PLT 483(H) 140 - 400 K/uL 01/08/2025 8:13 AM [facility] 56- MPV 8.4 6.6 - 11.1 fL 01/08/2025 8:13 AM [facility] 56- Blood Venous blood specimen / Unknown Central Line / Unknown 01/08/2025 7:36 AM EST 01/08/2025 7:51 AM EST Logan Plummer MD LAB BLOOD ORDERABLES Final Res ult [facility] 56-02 [address] [place] [address] * (ABNORMAL) URIC ACID (01/08/2025 7:36 AM EST) Uric Acid 1.9(L) 2.4 - 5.7 mg/dL 01/08/2025 2:31 PM EST LABORATORY [facility] Blood Venous blood specimen / Unknown Central Line / Unknown 01/08/2025 7:36 AM EST 01/08/2025 7:51 AM EST Logan Plummer MD LAB BLOOD ORDERABLES Final Res ult LABORATORY [facility] [address] [place] [address] * (ABNORMAL) COMPREHENSIVE METABOLIC PANEL (01/08/2025 7:36 AM EST) BUN 8 6 - 20 mg/dL 01/08/2025 8:48 AM [facility] 56- CREATININE 0.5 0.5 - 1.0 mg/dL 01/08/2025 8:48 AM [facility] 56- EGFR >90 >=60 mL/min 01/08/2025 8:48 AM [facility] 56- Comment:eGFR is calculated b ased on the CKD-EPI 2020 equation. SODIUM 136 135 - 146 mmol/L 01/08/2025 8:48 AM [facility] 56- POTASSIUM 4.1 3.5 - 5.1 mmol/L 01/08/2025 8:48 AM [facility] 56- CHLORIDE 102 98 - 107 mmol/L 01/08/2025 8:48 AM [facility] 56- CO2 26 22 - 32 mmol/L 01/08/2025 8:48 AM [facility] 56- ANION GAP 8 7 - 15 mmol/L 01/08/2025 8:48 AM [facility] 56- GLUCOSE 95 70 - 120 mg/dL 01/08/2025 8:48 AM [facility] 56- Albumin 3.0(L) 3.8 - 5.0 g/dL 01/08/2025 8:48 AM [facility] 56- AST 23 10 - 35 U/L 01/08/2025 8:48 AM [facility] 56- Alkaline Phosphatase 116 35 - 130 U/L 01/08/2025 8:48 AM [facility] 56- Bilirubin, Total 0.2 <=1.2 mg/dL 01/08/2025 8:48 AM [facility] 56- CALCIUM 8.6 8.4 - 10.2 mg/dL 01/08/2025 8:48 AM [facility] 56- Protein 6.8 6.0 - 8.3 g/dL 01/08/2025 8:48 AM [facility] 56- ALT 20 10 - 35 U/L 01/08/2025 8:48 AM [facility] 56- Blood Venous blood specimen / Unknown Central Line / Unknown 01/08/2025 7:36 AM EST 01/08/2025 7:51 AM EST us Logan Plummer MD LAB BLOOD ORDERABLES Final Res ult LABORATORY [facility] 56-[address] [place] [address] * LD (01/08/2025 7:36 AM EST) LD 217 <=250 U/L 01/08/2025 2:3 1 PM EST LABORATORY [facility] Blood Venous blood specimen / Unknown Central Line / Unknown 01/08/2025 7:36 AM EST 01/08/2025 7:51 AM EST us Logan Plummer MD LAB BLOOD ORDERABLES Final Res ult LABORATORY [facility] [address] [place] [address] documented in this encounter Visit Diagnoses Diagnosis [...] mL documented in this encounter Care Teams Parachute Harness Rigger Relationship Specialty Start Date End Date Stephany Gilbert CRNP [address] [place] [address] [place] [address] PCP - General Nurse Practitioner 02/02/23 documented as of this encounter
--- OUTSIDE RECORDS SUMMARY | 2025-02-26 17:12 | External Medical Summary | Summary of Care ---
Author Name Unknown Organization [facility] Address [address] [place] [address] Phone [phone] Care Team Providers Care Gis Database Administrator Name Role Phone Annabelle Gilbertastrid ELLIOTT Primary Care Provider Reason for Visit * Reason Onset Date Comments Appointment 12/04/2024 Upper endoscopy Colonoscopy Encounter Details Date Type Department Care Team (Late st Contact Info) Description 12/04/2024 Telephone Gastroenterology, [address] [phone] Specified, Zz No Resource [address] [place] [address] Appointment (Upper endoscopy Colonoscopy ) Allergies Active Allergy Reactions Criticality Noted Date Comments Nickel Rash 03/11/2015 documented as of this encounter (statuses as of 01/14/2025) Medications CALTRATE 600 + D 600-125 MG-IU [...] 1000 MG Oral Capsule 1 Capsule. Active documented as of this encounter (statuses as of 01/14/2025) Active Problems Problem Noted Date Diagnosed Date Encounter for adjustment and management of vascular access device 01/08/2025 Prevention of chemotherapy-induced neutropenia 0 12/31/2024 Diffuse large B-cell lymphoma of lymph nodes of neck 11/29/2024 Encounter for antineoplastic chemotherapy 2024 BREAST CANCER UNSPECIFIED,FEMALE 10/25/2008 Other iron deficiency anemia Overview (08/15/2017): ICD-10 update of inactive term Osteoporosis documented as of this encounter (statuses as of 01/14/2025) Resolved Problems Problem Noted Date Diagnosed Date Resolved Date Other iron deficiency anemia 12/19/2008 Overview (08/15/2017): Resolved per Duplicate Protocol #2. ICD-10 update of inactive term documented as of this encounter (statuses as of 01/14/2025) Social History Tobacco Use Types Packs/Day Years [...] encounter Miscellaneous Notes * Telephone Encounter - Crissy Naylor OSA - 12/04/2024 7:45 AM EST Images from the original note were not included. Order EGD, FLEXIBLE, DIAGNOSTIC [[id number]] (Order [id number]) Order Information Date and Time Department Ordering/Authorizing 12/03/2024 12:33 PM Anc Hem/Onc [facility] Lizzy Damian CRNP Order Providers Authorizing Provider Encounter Provider ([id number]) Lizzy Damian CRNP ([id number]) Logan Plummer MD Supervision Information Encounter Supervising Provider Type of Supervision ([id number]) Kael Garcia MD General Collection Information Priority and Order Details Priority Class Routine Site Quantity Ordering Quantity 1 Order Questions Question Answer Procedure Location: [place] Facility: [facility] Comments CARINA Associated Diagnoses Diffuse large B-cell lymphoma of lymph nodes of neck (HCC) [C83.31] - Primary Iron deficiency anemia, unspecified iron deficiency anemia type [D50.9] Status of Other Orders View Status of Other Orders Encounter View Encounter Reprint Requisition EGD, FLEXIBLE, DIAGNOSTIC (Order #[id number]) on 12/03/24 Tracking Links Cosign Tracking Order Transmittal Tracking * Telephone Encounter - Crissy Naylor OSA - 12/04/2024 7:45 AM EST Images from the original note were not included. Order COLONOSCOPY, DIAGNOSTIC (RECTUM) [[id number]] (Order [id number]) Order Information Date and Time Department Ordering/Authorizing 12/03/2024 12:33 PM Anc Hem/Onc [facility] Lizzy Damian CRNP Order Providers Authorizing Provider Encounter Provider ([id number]) Lizzy Damian CRNP ([id number]) Logan Plummer MD Supervision Information Encounter Supervising Provider Type of Supervision ([id number]) Kael Garcia MD General Collection Information Priority and Order Details Priority Class Routine Site Quantity Ordering Quantity 1 Order Questions Question Answer Procedure Location: [place] Facility: [facility] Comments CARINA Associated Diagnoses Diffuse large B-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 (HCC) [C83.31] - Primary Iron deficiency anemia, unspecified iron deficiency anemia type [D50.9] Status of Other Orders View Status of Other Orders Encounter View Encounter Reprint Requisition COLONOSCOPY, DIAGNOSTIC (RECTUM) (Order #[id number]) on 12/03/24 Tracking Links Cosign Tracking Order Transmittal Tracking documented in this encounter Plan of Treatment Upcoming Encounters Date Type Department Care Team (Late st Contact Info) Description 01/29/2025 7:45 AM EDT Nurse Only Hematology/Oncology [address] [phone] Kaykay, Chair 1 Hem On[address] [place] [address] 01/29/2025 8:00 AM EDT Office Visit Hematology/Oncology [address] [place] [phone] Etelvina Mo CRNP [address] [facility] [place] [address] 01/29/2025 8:30 AM EDT Hem/Onc Treatment Hematology/Oncology Treatment, [address] [phone] Kaykay, Chair 7 Hem Onc [address] [place] [address] 02/11/2025 12:45 PM EDT Imaging Radiology [facility] 1st [facility] [address] [place] [address] 02/19/2025 8:00 AM EDT Office Visit Hematology/Oncology [facility] Kaykay [place] [address] [place] [phone] Logan Plummer MD 200 [facility] [place] [address] Scheduled Procedures Name Priority Associated Diagnoses Date/Ti [...] D LEVEL ONCE IN A LIFETIME-USE SMARTSET# [id number] Completed 10/25/2008 Pneumococcal Vaccine: 50+ Years Completed [...] this encounter Medical Devices Implanted Type Area Drive Man Device Identifier Shelf Expiration Date Model / Serial / Lot Power Port 8fr Sngl Lumen Plas - [id number] Implanted:Qty : 1 on 12/05/2024 by Taco Sanchez MD at [facility] Left: Chest CR BARD : PERIPHERAL VASCULAR [id number] 07/14/2025 [id number] / / [id number] documented as of this encounter Care Teams Gis Database Administrator Relationship Specialty Start Date End Date Stephany Gilbert CRNP [address] [place] [address] [place] [id number] PCP - General Nurse Practitioner 02/02/23 documented as of this encounter
--- OUTSIDE RECORDS SUMMARY | 2025-02-26 17:12 | External Medical Summary ---
Author Name Unknown Address Unknown Organization K09:[facility] 56-02 - [address] [place] [address] Laboratory Report Ordering Provider Test Date Status ERIN FLORES 01/08/2025 07:36:38 Final Observation Date Value Abnormality Reference (Units ) Status SYNC LEUKOCYTES IN BLOOD BY AUTOMATED COUNT 01/08/2025 07:36:38 11.34 Above high normal 4.00-10.80 (K/uL) Final Neutrophils/100 leukocytes in Blood by Manual count 01/08/2025 07:36:38 73.0 40.0-75.0 (%) Final Lymphocytes/100 leukocytes in Blood by Manual count 01/08/2025 07:36:38 8.0 Below low normal 18.0-42.0 (%) Final Monocytes/100 leukocytes in Blood by Manual count 01/08/2025 07:36:38 16.0 Above high normal 1.0-11.0 (%) Final Metamyelocytes/100 leukocytes in Blood by Manual count 01/08/2025 07:36:38 3.0 Above high normal <=0.0 (%) Final Neutrophils [#/volume] in Blood by Manual count 01/08/2025 07:36:38 8.28 Above high normal 1.80-7.70 (K/uL) Final Lymphocytes [#/volume] in Blood by Manual count 01/08/2025 07:36:38 0.91 Below low normal 1.00-4.80 (K/uL) Final Monocytes [#/volume] in Blood by Manual count 01/08/2025 07:36:38 1.81 Above high normal 0.00-1.10 (K/uL) Final Metamyelocytes [#/volume] in Blood by Manual count 01/08/2025 07:36:38 0.34 Above high normal <=0.00 (K/uL) Final Nucleated erythrocytes/100 leukocytes [Ratio] in Blood by Automated count 01/08/2025 07:36:38 Final Elliptocytes [Presence] in Blood by Light microscopy 01/08/2025 07:36:38 Moderate Abnormal None Seen Final Polychromasia [Presence] in Blood by Light microscopy 01/08/2025 07:36:38 Moderate Abnormal None Seen Final Performing Location [facility]- 02 - [address] [place] [address]
--- OUTSIDE RECORDS SUMMARY | 2025-02-26 17:12 | External Medical Summary | Summary of Care ---
Author Name Unknown Organization [facility] Address [address] [place] [address] Phone [phone] Care Team Providers Care Paper Supervisor Name Role Phone Stephany Gilbert Primary Care Provider Reason for Visit * Reason Onset Date Comments Advice 01/07/2025 Encounter Details Date Type Department Care Team (Late st Contact Info) Description 01/07/2025 Telephone Hematology/Oncology [facility] [place] [address] [facility] [address] [facility], Scheduling [address] [place] [address] Advice Allergies Active Allergy Reactions Criticality Noted Date Comments Nickel Rash 03/11/2015 documented as of this encounter (statuses as of 01/07/2025) Medications CALTRATE 600 + D 600-125 MG-IU [...] for Nausea. 30 Tablet 3 5 Active Allopurinol 300 MG Oral Tablet [...] before bedtime. 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 10 Tablet 5 Active documented as of this encounter (statuses as of 01/07/2025) Active Problems Problem Noted Date Diagnosed Date Prevention of chemotherapy-induced neutropenia 0 12/31/2024 Diffuse large B-cell lymphoma of lymph nodes of neck 11/29/2024 Encounter for antineoplastic chemotherapy 2024 BREAST CANCER UNSPECIFIED,FEMALE 10/25/2008 Other iron deficiency anemia Overview (08/15/2017): ICD-10 update of inactive term Osteoporosis documented as of this encounter (statuses as of 01/07/2025) Resolved Problems Problem Noted Date Diagnosed Date Resolved Date Other iron deficiency anemia 12/19/2008 Overview (08/15/2017): Resolved per Duplicate Protocol #2. ICD-10 update of inactive term documented as of this encounter (statuses as of 01/07/2025) Social History Tobacco Use Types Packs/Day Years [...] Telephone Encounter - Nadiya Granados RN - 01/07/2025 1:42 PM EST Called patient, reviewed prednisone instructions. She verbalized understanding. Disp Refills Start End predniSONE 50 MG Oral Tablet (Deltasone) 10 Tablet 5 12/18/2024 -- Sig: Take 100mg (2 tablets) once a day on days 1-5 of each cycle * Telephone Encounter - Nichole Li OSA - 01/07/2025 12:58 PM EST Pt calling in asking how she is to take the prednisone as she does not remember how she took it thelast time wondering if she is to take it before her TX or after. Please advise Pt has TX tomorrow. documented in this encounter Plan of Treatment Upcoming Encounters Date Type Department Care Team (Late st Contact Info) Description 01/08/2025 7:30 AM EST Laboratory Laboratory [facility] [place] [address] [facility] [place] [phone] [facility] [place] [address] [address] [place] [address] 01/08/2025 8:00 AM EST Office Visit Hematology/Oncology [facility] [place] [address] [place] [phone] Logan Plummer MD 200 [facility] [place] [address] 01/08/2025 8:30 AM EST [facility] [place] [phone] Kaykay, Chair 9 Hem Onc [address] [place] [address] Scheduled Procedures Name Priority Associated Diagnoses Date/Ti [...] D LEVEL ONCE IN A LIFETIME-USE SMARTSET# 28841 Completed 10/25/2008 Pneumococcal Vaccine: 50+ Years Completed [...] this encounter Medical Devices Implanted Type Area Oxygen Plant Operator Device Identifier Shelf Expiration Date Model / Serial / Lot Power Port 8fr Sngl Lumen Plas - [id number] Implanted:Qty : 1 on 12/05/2024 by Taco Sanchez MD at [facility] Left: Chest CR BARD : PERIPHERAL VASCULAR [id number] 07/14/2025 [id number] / / [id number] documented as of this encounter Care Teams Paper Supervisor Relationship Specialty Start Date End Date Stephany Gilbert CRNP [address] [place] [address] [place] [address] PCP - General Nurse Practitioner 02/02/23 documented as of this encounter
--- OUTSIDE RECORDS SUMMARY | 2025-02-26 17:12 | External Medical Summary | Summary of Care ---
Author Name Unknown Organization [facility] Address [address] [facility] [place] [address] Phone [phone] Care Team Providers Care Dredge Captain Name Role Phone Stephany Gilbert Primary Care Provider Reason for Visit * Reason Comments Procedure Encounter Details Date Type Department Care Team (Late st Contact Info) Description 01/08/2025 8:00 AM EST Nurse Only Hematology/Oncology Treatment, [place] [address] [place] [address] Kaykay, Chair 5 Hem Onc [facility] [address] [place] [address] Procedure Allergies Active Allergy Reactions Criticality Noted Date Comments Nickel Rash 03/11/2015 documented as of this encounter (statuses as of 01/08/2025) Medications CALTRATE 600 + D 600-125 MG-IU [...] as of this encounter (statuses as of 01/08/2025) Active Problems Problem Noted Date Diagnosed Date Encounter for adjustment and management of vascular access device 01/08/2025 Prevention of chemotherapy-induced neutropenia 0 12/31/2024 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 ICD-10 update of inactive term documented as of this encounter (statuses as of 01/08/2025) Social History Tobacco Use Types Packs/Day Years [...] Care Team (Late st Contact Info) Description 01/09/2025 2:00 PM EST Immunization/Injecti on Hematology/Oncology Treatment, [place] [address] [place] [phone] Park, Chair 6 Hem Onc [place] [address] [place] [address] 01/29/2025 7:45 AM EDT Nurse Only Hematology/Oncology Treatment, [place] [facility] [phone] Kaykay, Chair 1 Hem Onc [facility] [address] [facility] [place] [address] 01/29/2025 8:00 AM EDT Office Visit Hematology/Oncology [facility] 200 [facility] [place] [phone] Etelvina Mo CRNP [address] [facility] [place] [address] 01/29/2025 8:30 AM EDT Hem/Onc Treatment Hematology/Oncology Treatment, [place] 200 [facility] [place] [phone] Kaykay, Chair 7 Hem Onc [facility] [address] [facility] [place] [address] 02/11/2025 12:45 PM EDT Imaging Radiology [facility] [facility] [address] [place] [address] 02/19/2025 8:00 AM EDT Office Visit Hematology/Oncology [facility] [place] [address] [facility] [place] [phone] Logan Plummer MD [address] [facility] [place] [address] Scheduled Procedures Name Priority Associated Diagnoses Date/Ti [...] D LEVEL ONCE IN A LIFETIME-USE SMARTSET# 85000 Completed 10/25/2008 Pneumococcal Vaccine: 50+ Years Completed [...] this encounter Medical Devices Implanted Type Area Merchandise Buyer Device Identifier Shelf Expiration Date Model / Serial / Lot Power Port 8fr Sngl Lumen Plas - [id number] Implanted:Qty : 1 on 12/05/2024 by Taco Sanchez MD at [facility] Left: Chest CR BARD : PERIPHERAL VASCULAR [id number] 07/14/2025 [id number] / / [id number] documented as of this encounter Visit Diagnoses [...] PRN IV Flush and Lock, Starting on 01/08/25 at 1026, Until 01/08/25 at 1908, Do not flush if lock, PICC, or [...] of lymph nodes of neck (HCC) Given 01/08/2025 7:30 AM EST 20 mL documented in this encounter Care Teams Dredge Captain Relationship Specialty Start Date End Date Stephany Gilbert CRNP [address] [place] [address] [place] [address] PCP - General Nurse Practitioner 02/02/23 documented as of this encounter
--- OUTSIDE RECORDS SUMMARY | 2025-02-26 17:12 | External Medical Summary | Summary of Care ---
Author Name Unknown Organization [facility] Address [address] [facility] [place] [address] Phone [phone] Care Team Providers Care Welding Lead Burner Name Role Phone Stephany Gilbert Primary Care Provider Reason for Referral * Precert (Within 10 days (routine)) - Authorized Specialty Diagnoses / Procedures Referred By Contac t Referred To Contact Radiology Diagnoses Diffuse large B-cell lymphoma of lymph nodes of neck (HCC) Procedures PET CT SKULL BASE TO MID-THIGH FDG Logan Plummer MD [address] [place] [place] [address] Phone: tel: fax: Referral ID Status Reason Start Date Expiration Date V isits Requested Visits Authorized [id number] Authorized 01/08/2025 999 999 Reason for Visit * Reason Comments Chemotherapy Chemo/recheck Encounter Details Date Type Department Care Team (Late st Contact Info) Description 01/08/2025 8:00 AM EST Office Visit Hematology/Oncology [facility] [address] [place] [address] [phone] Logan Plummer MD [address] [place] [address] [id number] 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 ICD-10 update of inactive term documented as of this encounter (statuses as of 01/09/2025) Social History Tobacco Use Types Packs/Day Years [...] Sign Reading Time Taken Comments Blood Pressure 109/69 01/08/2025 7:49 AM EST Pulse 98 01/08/2025 7:49 AM EST Temperature 36.7 °C (98.1 °F) 01/08/2025 7:49 AM ES T Respiratory Rate 16 01/08/2025 7:49 AM EST Oxygen Saturation 98% 01/08/2025 7:49 AM EST Inhaled Oxygen Concentration - - Weight 60.6 kg (133 lb 8 oz) 01/08/2025 7:49 AM EST Height - - Body Mass Index 22.22 12/05/2024 1:31 PM EST documented in this encounter Progress Notes * Logan Plummer MD - 01/08/2025 8:00 AM EST Hematology/Oncology Outpatient Clinic note Roberto Lenny [place] [address] [facility], [place] [address] NAME: Theresa Pascual :1950 74-year-old female, DIAGNOSIS: [...] brentuximab, Cytoxan, rituximab, prednisone therapy. ( 12/18/2024) -Adriamycin was not given because she had [...] brentuximab, Cytoxan, Rituximab, prednisone on 12/18/2024. Received 1st cycle of chemotherapy Following 1st cycle, she had neutropenia, she received prophylactic antibiotic Levaquin. No fever Overall she is doing well, tolerated treatment without significant side effects, she denies any tingling and numbness of the extremities, ambulates with the help of the walker, denies any bleeding from the sites, no fever, weight is stable around 133 lb, appetite has improved, no nausea, no vomiting, denies any abdominal pain, not on pain medication on regular basis. Pulse ox on room air is around 94% She also has underlying CREST syndrome She [...] performed by Kael Garcia MD at ENDOSCOPY [facility] [address] EGD, FLEXIBLE, DIAGNOSTIC 11/09/2023 LA grade B reflux esopahagitis , gastritis / biopsies mild to moderate inflammation / ESOPHAGOGASTRODUODENOSCOPY (EGD), FLEXIBLE, TRANSORAL, DIAGNOSTIC performed by Kael Garcia MD at [facility] [address] EGD, FLEXIBLE, DIAGNOSTIC 01/12/2024 antral gastritis/ESOPHAGOGASTRODUODENOSCOPY (EGD), FLEXIBLE, TRANSORAL, DIAGNOSTIC performed by Suzette Lopez MD at [facility]COPY [facility] [address] INSER TUNN ACC DEV;5 YRS/OLDER Left 12/05/2024 INSERT TUNNELED CENTRAL VENOUS ACCESS WITH SUBQ PORT performed by Taco Sanchez MD at [facility] IR BIOPSY 10/18/2024 IR BIOPSY 11/19/2024 MASTECTOMY,RADICAL [...] 1 Tablet by mouth in the morning. Mycophenolate Mofetil 500 MG Oral Tablet (Cellcept) Take by mouth 2 times a day. Rosuvastatin Calcium 10 MG Oral Tablet (Crestor) [...] min prior to breakfast or other meds) Allopurinol 300 MG Oral Tablet (Zyloprim) Take 1 Tablet by mouth in the morning. 90 Tablet 0 Fish Oil 1000 MG Oral Capsule 1 Capsule. Ondansetron HCl 8 MG Oral Tablet (Zofran) Take 1 Tablet by mouth every 8 hours as needed for Nausea. 30 Tablet 3 Prochlorperazine Maleate 10 MG Oral Tablet (Compazine) Take 1 Tablet by mouth every 6 hours as needed for Nausea. 30 Tablet 3 Allopurinol 300 MG Oral Tablet (Zyloprim) Take 1 Tablet by mouth in the morning. 30 Tablet 5 Lidocaine-Prilocaine 2.5-2.5 % External Cream (Emla) APPLY [...] 1 Tablet before bedtime. 180 Tablet 3 levoFLOXacin 500 MG Oral Tablet (Levaquin) Take 1 Tablet by mouth in the morning. 10 Tablet 0 No current facility-administered medications for this visit. Family History Problem Relation Name Age of Onset Cancer Sister Honey breast Hypertension Brother Social History Socioeconomic History Marital status: Spouse name: Not on file Number of children: 0 Years of education: Not on file Highest education level: Not on file Occupational History Employer: [employer] [id number] Tobacco Use Smoking status: Never Smokeless tobacco: [...] Stability: Not on file On exam: BP 109/69 (BP Site: Left Arm, BP Position: Sitting, BP Cuff Size: Regular) | Pulse 98 | Temp 36.7 °C (98.1 °F) (Tympanic) | Resp 16 | Wt 60.6 kg (133 lb 8 oz) | SpO2 98% | BMI 22.22 kg/m² | BSA 1.67 m² Constitutional: Patient is alert, cooperative and [...] alkaline phosphatase 76, bilirubin level 0.4 -WBC 86259, Hemoglobin and hematocrit - 5.8/20, MCV 89.3, Platelet count of 713640, ANC 11,000, absolute monocyte count 2100. Immature WBCs in the form of myelocytes and metamyelocytes noted. - Uric acid --> 2.1, LDH --> 253 ( 11/09/2024). Anemia workup done on 10/25/2024: -Serum iron 19, TIBC 207, iron saturation 9% -Ferritin--> 1867 -folic acid --> > 20 -Vitamin B12--> 1128. - Absolute reticulocyte count --> 66,000 (10/04/2024). Blood workup done on 12/18/2024: -WBC 22796, Hemoglobin and hematocrit - 7.9/25.7, Platelet count of 290268 -BUN/Creat: 8/0.7 -AST 233, ALT 95, alkaline phosphatase 123, bilirubin 0.4 -Uric acid --> 2.2, LDH 525 - Blood workup done on 01/08/2025: -WBC 81925, Hemoglobin and hematocrit - 8.6/29, MCV 93, Platelet count of 657164 -ANC 8200. -LV ejection fraction --> 50% ( 10/05/2024). [...] 12/13/2024 showed no evidence of pulmonary embolism. Mgfh-hd-gaauymgl bilateral pleural effusion, extensive lymphadenopathy in the mediastinum, subpectoral, supraclavicular region. ASSESSMENT AND PLAN: 74-year-old female, who had [...] treatment for the lymphoma diagnosis in 2013. She received 1st cycle of chemotherapy on 12/18/2024, overall she has done well. Tolerated well. No worsening neuropathy symptoms. She had a low ANC around 0.05 as of 12/31/2024, received prophylactic Levaquin antibiotic. She did not have any fever She says that previously palpable lymph node in the neck has gone down completely. Reviewed blood workup done today, gradual improvement of hemoglobin level noted. She did receive IV iron Venofer x4, last infusion was on 12/31/2024. Will proceed with 2nd treatment with chemotherapy as we planned She is at high-risk for febrile neutropenia, she will receive prophylactic Pegfilgrastim. No evidence of tumor lysis noted. Would like to discontinue allopurinol prophylaxis. Will continue acyclovir prophylaxis. Will check Ferritin iron profile today and decide about further need for IV iron therapy. Will see her in 3 weeks before the next cycle Planning for PET-CT scan after 3 cycles ( ordered, to be done somewhere around 02/13/2025) Dr. Logan Plummer Hem/Onc (This note was completed using the dictation program Fluency Direct. As such, there may be misspellings word substitutions, or other variations that should not change the essence of the clinical content of this encounter note. If there is need for further clarification, please direct questions to the provider listed above.) documented in this encounter Nursing Notes * Elda Aviles LPN - 01/08/2025 7:50 AM EST Patient identifed by name and birthdate Do you have any concerns about pain management for today's visit? No Living Will or Advance Directive for Health Care as noted on the problem list. [facility] is a way you can talk to your provider on line through e-mail. Would you like to sign up? I can activate it for you? NO Filed Vitals: 01/08/25 0749 BP: 109/69 Pulse: 98 Resp: 16 Temp: 36.7 °C (98.1 °F) TempSrc: Tympanic SpO2: 98% Weight: 60.6 kg (133 lb 8 oz) Patient was instructed to not get [...] 2:00 PM EST Immunization/Injecti on Hematology/Oncology Treatment, [address] [place] [phone] Kaykay, Chair 6 Hem Onc [address] [place] [address] 01/29/2025 7:45 AM EDT Nurse Only Hematology/Oncology Treatment, [address] [place] [phone] Kaykay, Chair 1 Hem Onc [address] [place] [address] 01/29/2025 8:00 AM EDT Office Visit Hematology/Oncology [facility] Kaykay [address] [place] [phone] Etelvina Mo [facility] [address] [facility] [place] [address] 01/29/2025 8:30 AM EDT Hem/Onc Treatment Hematology/Oncology Treatment, [place] [address] [place] [phone] Kaykay, Chair 7 Hem Onc Scenery [address] [place] [address] 02/11/2025 12:45 PM EDT Imaging Radiology [facility] [place] [address] [place] [phone] 02/19/2025 8:00 AM EDT Office Visit Hematology/Oncology [facility] [address] [place] [phone] Logan Plummer MD [address] [place] [address] Scheduled Orders Name Type Priority Associated Diagnoses Orde r Schedule PET CT SKULL BASE TO MID-THIGH FDG Medical Imaging Routine Diffuse large B-cell lymphoma of lymph nodes of neck (HCC) Ordered: 01/08/2025 Scheduled Procedures Name Priority Associated Diagnoses Date/Ti [...] D LEVEL ONCE IN A LIFETIME-USE SMARTSET# 69658 Completed 10/25/2008 Pneumococcal Vaccine: 50+ Years Completed [...] this encounter Medical Devices Implanted Type Area Transaction Advisory Services Manager Device Identifier Shelf Expiration Date Model / Serial / Lot Power Port 8fr Sngl Lumen Plas - [id number] Implanted:Qty : 1 on 12/05/2024 by Taco Sanchez MD at OR [facility] Left: Chest CR BARD : PERIPHERAL VASCULAR [id number] 07/14/2025 [id number] / / [id number] documented as of this encounter Results * (ABNORMAL) FERRITIN (01/08/2025 7:36 AM EST) Ferritin 3,115(H) 13 - 150 ng/mL 01/08/2025 3:29 PM EST [facility] Comment:Postmenopausal women have higher ferritin levels than pre-menopausal women. The above reference interval is based on pre-menopausal women. Blood Venous blood specimen / Unknown Central Line / Unknown 01/08/2025 7:36 AM EST 01/08/2025 7:51 AM EST us Logan Plummer MD LAB BLOOD ORDERABLES Final Res ult [facility] [address] [place] [address] * (ABNORMAL) IRON SCREEN, INCLUDING TIBC (01/08/2025 7:36 AM EST) Iron 36 33 - 151 ug/dL 01/08/2025 2:31 PM EST LABORATORY [facility] Iron Binding Capacity 169(L) 250 - 425 ug/dL 01/08/2025 2:31 PM EST [facility] Transferrin Saturation Percent 21 15 - 55 % 01/08/2025 2:31 PM EST [facility] Blood Venous blood specimen / Unknown Central Line / Unknown 01/08/2025 7:36 AM EST 01/08/2025 7:51 AM EST us Logan Plummer MD LAB BLOOD ORDERABLES Final Res ult [facility] [address] [place] [address] documented in this encounter Visit Diagnoses Diagnosis Diffuse large B-cell lymphoma of lymph nodes of neck (HCC)- Primary Iron deficiency anemia, unspecified iron deficiency anemia type documented in this encounter Care Teams Welding Lead Burner Relationship Specialty Start Date End Date Stephany Gilbert CRNP [address] [facility] ([place], [place]) [place] [address] PCP - General Nurse Practitioner 02/02/23 documented as of this encounter"
--- OUTSIDE RECORDS SUMMARY | 2025-02-26 17:12 | External Medical Summary ---
Author Name Unknown Address Unknown Organization K01:[facility] - [address] [place] [address] Laboratory Report Ordering Provider Test Date Status ERIN FLORES 01/08/2025 07:36:38 Final Observation Date Value Abnormality Reference (Units ) Status LDH 01/08/2025 07:36:38 217 <=250 (U/L ) Final Performing Location [facility] - [address] [place] [address]
--- OUTSIDE RECORDS SUMMARY | 2025-02-26 17:12 | External Medical Summary | Summary of Care ---
Author Name Unknown Organization [facility] Address [address] [facility] [place] [address] Phone [phone] Care Team Providers Care Separator Operator Name Role Phone Vladimir Stephany ELLIOTT Primary Care Provider Reason for Visit * Reason Onset Date Comments Test Results Lab 12/31/2024 Precert Future 12/31/2024 [facility] Encounter Details Date Type Department Care Team (Late st Contact Info) Description 12/31/2024 Telephone Hematology/Oncology [facility] [address] [place] [phone] Logan Plummer MD [address] [address] Test Results Lab; Precert Future ([facility] ) Allergies Active Allergy Reactions Criticality Noted Date Comments Nickel Rash 03/11/2015 documented as of this encounter (statuses as of 01/03/2025) Medications CALTRATE 600 + D 600-125 MG-IU [...] as of this encounter (statuses as of 01/03/2025) Active Problems Problem Noted Date Diagnosed Date Prevention of chemotherapy-induced neutropenia 0 12/31/2024 Diffuse large 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 ICD-10 update of inactive term documented as of this encounter (statuses as of 01/03/2025) Social History Tobacco Use Types Packs/Day Years [...] Telephone Encounter - Nadiya Granados RN - 01/03/2025 7:39 AM EST Referral updated. Scheduling: please add to treatment appt note "fulphila day 2". Thanks! * Telephone Encounter - Nadiya Granados RN - 01/02/2025 7:09 AM EST Fulphila was added 12/31/24, Kayleen updated referral back to "auth" but note does not mention anything about fulphila being approved. Is this still going to trigger to WQ? Or is auth not needed (if so, please update referral)? Thanks! * Telephone Encounter - Shaista Whitt OSA - 01/01/2025 9:03 AM EST Pt has Medicare no auth needed. Once fulphila is added to the referral it will trigger it to the WQto be entered. * Telephone Encounter - Saul Ramos RN - 12/31/2024 3:38 PM EST Called patient to inform in regards to both antibiotic and injection. Advised the she should take her antibiotic with some food and water to help prevent nausea/stomach discomfort. Also advised that there's a black box warning for this medication and its ability to cause tendon rupture, she is aware to call us if she notices any pain in her tendons. Reviewed Fulphila with her and she is aware she will take 10mg Claritin for 5 days starting the dayof her chemotherapy. Medication added to her med list. Order received for Fulphila, awaiting referral. Pre-cert: Patient is coming 01/08 for next chemotherapy, please submit Fulphila referral urgently. Thank you. * Telephone Encounter - Saul Ramos RN - 12/31/2024 3:30 PM EST Blood workup done on 12/21/2024: -WBC 1100, Hemoglobin and hematocrit - 7.8/26.3, Platelet count of 915683 -ANC 0.05. She is at high-risk for febrile neutropenia Would like to start prophylactic antibiotic Levaquin 500 mg once a day for 10 days. I would like to give her prophylactic Pegfilgrastim following 2nd cycle of chemotherapy next para documented in this encounter Plan of Treatment Upcoming Encounters Date Type Department Care Team (Late st Contact Info) Description 01/08/2025 7:30 AM EST Laboratory Laboratory [facility] [place] [address] [facility] [place] [phone] Kaykay, Lab [address] [facility] [place] [address] 01/08/2025 8:00 AM EST Office Visit Hematology/Oncology [facility] [place] 200 [facility] [place] [phone] Logan Plummer MD 200 [facility] [place] [address] 01/08/2025 8:30 AM EST Hem/Onc Treatment Hematology/Oncology Treatment, [place] [address] [place] [phone] Kaykay, Chair 9 Hem Onc [address] [place] [address] Scheduled Procedures Name Priority Associated Diagnoses Date/Ti [...] D LEVEL ONCE IN A LIFETIME-USE SMARTSET# 90083 Completed 10/25/2008 Pneumococcal Vaccine: 50+ Years Completed [...] this encounter Medical Devices Implanted Type Area Coke Crusher Operator Device Identifier Shelf Expiration Date Model / Serial / Lot Power Port 8fr Sngl Lumen Plas - [id number] Implanted:Qty : 1 on 12/05/2024 by Taco Sanchez MD at OR [facility] Left: Chest CR BARD : PERIPHERAL VASCULAR [id number] 07/14/2025 [id number] / / [id number] documented as of this encounter Care Teams Separator Operator Relationship Specialty Start Date End Date Stephany Gilbert CRNP [address] [place] [address] [place] [address] PCP - General Nurse Practitioner 02/02/23 documented as of this encounter
--- OUTSIDE RECORDS SUMMARY | 2025-02-26 17:12 | External Medical Summary ---
Author Name Unknown Address Unknown Organization K01:LABORATORY [facility] - [address] [place] [address] Laboratory Report Ordering Provider Test Date Status ERIN FLORES 01/08/2025 07:36:38 Final Observation Date Value Abnormality Reference (Units ) Status Uric Acid 01/08/2025 07:36:38 1.9 Below low normal 2.4 -5.7 (mg/dL) Final Performing Location [facility] - [address] [place] [address]
--- OUTSIDE RECORDS SUMMARY | 2025-02-26 17:12 | External Medical Summary | Summary of Care ---
Author Name Unknown Organization [facility] Address [address] [facility] [address] Phone [phone] Care Team Providers Care Clean Up Supervisor Name Role Phone Stephany Gilbert Primary [...] INJ [place] INJECTION, Logan Person MD 200 [place] [address] Phone: tel: fax: Hematology/Oncology Treatment, [address] [address] Phone: tel: fax: Referral ID Status Reason Start Date Expiration Date V isits Requested Visits Authorized [id number] Authorized 11/29/2024 11/13/[phone] Encounter Details Date Type Department Care Team (Latest Contact Info) Description 01/08/2025 8:30 AM EST Hem/Onc Treatment Hematology/Oncolog y Treatment, [address] [place] [phone] Kaykay, Chair 9 Hem Onc Scenery [address] [place] [address] Prevention of chemotherapy-induced neutropenia*; Diffuse large B-cell [...] 7:45 AM EDT Nurse Only Hematology/Oncology Treatment, [address] [phone] Kaykay, Chair 1 Hem On[address] [place] [address] 01/29/2025 8:00 AM EDT Office Visit Hematology/Oncology [facility] [address] [place] [phone] Etelvina Mo CRNP [address] [facility] [address] 01/29/2025 8:30 AM EDT Hem/Onc Treatment Hematology/Oncology Treatment, [address] [place] [phone] Kaykay, Chair 7 Hem Onc [address] [place] [address] 02/11/2025 12:45 PM EDT Imaging Radiology [address], [place] [address] [place] [phone] 02/14/2025 10:00 AM EDT Office Visit Hematology/Oncology [facility] [place] [address] [place] [phone] Logan Plummer MD 200 [facility] [place] [address] Scheduled Procedures Name Priority Associated Diagnoses Date/Ti [...] D LEVEL ONCE IN A LIFETIME-USE SMARTSET# 69913 Completed 10/25/2008 Pneumococcal Vaccine: 50+ Years Completed [...] this encounter Medical Devices Implanted Type Area Weblogic Administrator Device Identifier Shelf Expiration Date Model / Serial / Lot Power Port 8fr Sngl Lumen Plas - [id number] Implanted:Qty : 1 on 12/05/2024 by Taco Sanchez MD at OR [facility] Left: Chest CR BARD : PERIPHERAL VASCULAR [id number] 07/14/2025 [id number] / / [id number] documented as of this encounter Procedures Procedure [...] 150 ng/mL 01/08/2025 3:29 PM EST LABORATORY [facility] Comment:Postmenopausal women have higher ferritin levels than pre-menopausal women. The above reference interval is based on pre-menopausal women. Blood Venous blood specimen / Unknown Central Line / Unknown 01/08/2025 7:36 AM EST 01/08/2025 7:51 AM EST us Logan Plummer MD LAB BLOOD ORDERABLES Final Res ult [facility] [address] [place] [address] * (ABNORMAL) IRON SCREEN, INCLUDING TIBC (01/08/2025 7:36 AM EST) Pathologist [facility] Iron 36 33 - 151 ug/dL [...] [facility] [address] [place] [address] * (ABNORMAL) DIFFERENTIAL, TECHNOLOGIST REVIEW (01/08/2025 7:36 AM EST) [facility] WBC 11.34(H) 4.00 - 10.80 K/uL 01/08/2025 8:13 AM EST [facility] 56-02 Neutrophils % 73.0 40.0 - 75.0 % 01/08/2025 8:13 AM EST [facility] 56-02 Lymphocytes % 8.0(L) 18.0 - 42.0 % 01/08/2025 8:13 AM EST [facility] 56-02 Monocytes % 16.0(H) 1.0 - 11.0 % 01/08/2025 8:13 AM EST [facility] 56-02 Metamyelocytes % 3.0(H) <=0.0 % 01/08/20 8:13 AM EST [facility] 56-02 Absolute Neutrophils 8.28(H) 1.80 - 7.70 K/uL 01/08/2025 8:13 AM EST [facility] 56-02 Absolute Lymphocytes 0.91(L) 1.00 - 4.80 K/uL 01/08/2025 8:13 AM EST [facility] 56-02 Absolute Monocytes 1.81(H) 0.00 - 1.10 K/uL 01/08/2025 8:13 AM EST [facility] 56 Absolute Metamyelocytes 0.34(H) <=0.00 K/uL 01/08/2025 8:13 AM EST [facility] 56- nRBCs 01/08/2025 8:13 AM EST [facility] 56- Elliptocytes Moderate( A) None Seen 01/08/2025 8:13 AM EST [facility] Polychromasia Moderate( A) None Seen 01/08/2025 8:13 AM EST [facility] 56 Blood Venous blood specimen / Unknown Central Line / Unknown 01/08/2025 7:36 AM EST 01/08/2025 7:51 AM EST us Logan Plummer MD LAB BLOOD ORDERABLES Final Res ult [facility] [address] [place] [address] * DIFFERENTIAL, AUTOMATED (01/08/2025 7:36 AM EST) Blood Venous blood specimen / Unknown Central Line / Unknown 01/08/2025 7:36 AM EST 01/08/2025 7:51 AM EST us Logan Plummer MD LAB BLOOD ORDERABLES Final Res ult [facility] [address] [place] [address] * (ABNORMAL) CBC (01/08/2025 7:36 AM EST) WBC 11.34(H) 4.00 - 10.80 K/uL 01/08/2025 8:13 AM EST [facility] RBC 3.12 3.85 - 5.15 M/uL 01/08/2025 8:13 AM EST [facility] HGB 8.6(L) 12.0 - 15.3 g/dL 01/08/2025 8:13 AM EST [facility] HCT 29.0(L) 36.0 - 45.2 % 01/08/2025 8:13 AM [facility] 56- MCV 92.9 81.5 - 97.5 fL 01/08/2025 8:13 AM [facility] 56- MCH 27.6 27.0 - 34.0 pg 01/08/2025 8:13 AM [facility] 56- MCHC 29.7 32.0 - 36.0 g/dL 01/08/2025 8:13 AM [facility] 56- RDW 18.8 11.5 - 15.5 % 01/08/2025 8:13 AM [facility] 56- PLT 483(H) 140 - 400 K/uL 01/08/2025 8:13 AM [facility] 56- MPV 8.4 6.6 - 11.1 fL 01/08/2025 8:13 AM [facility] 56- Blood Venous blood specimen / Unknown Central Line / Unknown 01/08/2025 7:36 AM EST 01/08/2025 7:51 AM EST Logan Plummer MD LAB BLOOD ORDERABLES Final Res ult [facility] 56-02 [address] [place] [address] * (ABNORMAL) URIC ACID (01/08/2025 7:36 AM EST) Uric Acid 1.9(L) 2.4 - 5.7 mg/dL 01/08/2025 2:31 PM EST LABORATORY [facility] Blood Venous blood specimen / Unknown Central Line / Unknown 01/08/2025 7:36 AM EST 01/08/2025 7:51 AM EST Logan Plummer MD LAB BLOOD ORDERABLES Final Res ult LABORATORY [facility] [address] [place] [address] * (ABNORMAL) COMPREHENSIVE METABOLIC PANEL (01/08/2025 7:36 AM EST) BUN 8 6 - 20 mg/dL 01/08/2025 8:48 AM [facility] 56- CREATININE 0.5 0.5 - 1.0 mg/dL 01/08/2025 8:48 AM [facility] 56- EGFR >90 >=60 mL/min 01/08/2025 8:48 AM [facility] 56- Comment:eGFR is calculated b ased on the CKD-EPI 2020 equation. SODIUM 136 135 - 146 mmol/L 01/08/2025 8:48 AM [facility] 56- POTASSIUM 4.1 3.5 - 5.1 mmol/L 01/08/2025 8:48 AM [facility] 56- CHLORIDE 102 98 - 107 mmol/L 01/08/2025 8:48 AM [facility] 56- CO2 26 22 - 32 mmol/L 01/08/2025 8:48 AM [facility] [[email or web address]] [employer] [facility] [place] 56- ANION GAP 8 7 - 15 mmol/L 01/08/2025 8:48 AM [facility] 56- GLUCOSE 95 70 - 120 mg/dL 01/08/2025 8:48 AM [facility] 56- Albumin 3.0(L) 3.8 - 5.0 g/dL 01/08/2025 8:48 AM [facility] 56- AST 23 10 - 35 U/L 01/08/2025 8:48 AM [facility] 56- Alkaline Phosphatase 116 35 - 130 U/L 01/08/2025 8:48 AM [facility] 56- Bilirubin, Total 0.2 <=1.2 mg/dL 01/08/2025 8:48 AM [facility] 56- CALCIUM 8.6 8.4 - 10.2 mg/dL 01/08/2025 8:48 AM [facility] [[email or web address]] [employer] [facility] 56- Protein 6.8 6.0 - 8.3 g/dL 01/08/2025 8:48 AM [facility] 56- ALT 20 10 - 35 U/L 01/08/2025 8:48 AM [facility] 56- Blood Venous blood specimen / Unknown Central Line / Unknown 01/08/2025 7:36 AM EST 01/08/2025 7:51 AM EST us Logan Plummer MD LAB BLOOD ORDERABLES Final Res ult LABORATORY [facility] 56-[address] [place] [address] * LD (01/08/2025 7:36 AM EST) LD 217 <=250 U/L 01/08/2025 2:3 1 PM EST LABORATORY [facility] Blood Venous blood specimen / Unknown Central Line / Unknown 01/08/2025 7:36 AM EST 01/08/2025 7:51 AM EST us Logan Plummer MD LAB BLOOD ORDERABLES Final Res ult LABORATORY [facility] [address] [place] [address] documented in this encounter Visit Diagnoses Diagnosis [...] mL documented in this encounter Care Teams Clean Up Supervisor Relationship Specialty Start Date End Date Stephany Gilbert CRNP [address] [place] [address] [place] [address] PCP - General Nurse Practitioner 02/02/23 documented as of this encounter
--- OUTSIDE RECORDS SUMMARY | 2025-02-26 17:12 | External Medical Summary | Summary of Care ---
Author Name Unknown Organization [facility] Address [address] [facility] [address] Phone [phone] Care Team Providers Care Chemical Tester Name Role Phone Stephany Gilbert Primary Care [...] neck (HCC) Prevention of chemotherapy-induced neutropenia Procedures [place] INJECTION, RITUXIMAB-PVVR, BIOSIMILAR, (RUXIENCE), 10 MG [place] INJ CYCLOPHOSPHAMD [facility] [place] BRENTUXIMAB VEDOTIN INJ [place] INJECTION, Logan Person MD 200 [facility] [place] [address] Phone: tel: fax: Hematology/Oncology Treatment, [address] [address] Phone: tel: fax: Referral ID Status Reason Start Date Expiration Date V isits Requested Visits Authorized [id number] Authorized 11/29/2024 11/13/[phone] Encounter Details Date Type Department Care Team (Latest Contact Info) Description 01/08/2025 8:30 AM EST Hem/Onc Treatment Hematology/Oncolog y Treatment, [address] [place] [phone] Kaykay, Chair 9 Hem Onc Scenery [address] [place] [address] Prevention of chemotherapy-induced neutropenia*; Diffuse large B-cell [...] 2:00 PM EST Immunization/Injecti on Hematology/Oncology Treatment, [place] [facility] [phone] Kaykay, Chair 6 Hem Onc Scenery 200 [facility] [place] [address] 01/29/2025 7:45 AM EDT Nurse Only Hematology/Oncology Treatment, [address] [phone] Kaykay, Chair 1 Hem Onc [facility] 200 [facility] [place] [address] 01/29/2025 8:00 AM EDT Office Visit Hematology/Oncology [facility] [place] 200 [facility] [place] [phone] Etelvina Mo CRNP [address] [facility] [address] 01/29/2025 8:30 AM EDT Hem/Onc Treatment Hematology/Oncology Treatment, [address] [place] [phone] Kaykay, Chair 7 Hem Onc Scenery 200 [facility] [place] [address] 02/11/2025 12:45 PM EDT Imaging Radiology [facility] 1st [facility], [place] [address] [place] [phone] 02/19/2025 8:00 AM EDT Office Visit Hematology/Oncology [facility] [place] [address] [place] [phone] Logan Plummer MD [address] [place] [address] Scheduled Procedures Name Priority Associated Diagnoses Date/Ti [...] D LEVEL ONCE IN A LIFETIME-USE SMARTSET# 08875 Completed 10/25/2008 Pneumococcal Vaccine: 50+ Years Completed [...] encounter Medical Devices Implanted Type Area Manager Latin Device Identifier Shelf Expiration Date Model / Serial / Lot Power Port 8fr Sngl Lumen Plas - [id number] Implanted:Qty : 1 on 12/05/2024 by Taco Sanchez MD at [facility] Left: Chest CR BARD : PERIPHERAL VASCULAR [id number] 07/14/2025 [id number] / / [id number] documented as of this encounter Procedures Procedure [...] 150 ng/mL 01/08/2025 3:29 PM EST [facility] Comment:Postmenopausal women have higher ferritin levels than pre-menopausal women. The above reference interval is based on pre-menopausal women. Blood Venous blood specimen / Unknown Central Line / Unknown 01/08/2025 7:36 AM EST 01/08/2025 7:51 AM EST Logan Plummer MD LAB BLOOD ORDERABLES Final Res ult LABORATORY [facility] [address] [place] [address] * (ABNORMAL) IRON SCREEN, INCLUDING TIBC (01/08/2025 [...] Organization Address City/[facility]/ZIP Co de Phone Number LABORATORY [facility] [address] [place] [address] * (ABNORMAL) DIFFERENTIAL, TECHNOLOGIST REVIEW (01/08/2025 7:36 AM EST) WBC 11.34(H) 4.00 - 10.80 K/uL 01/08/2025 8:13 AM EST LABORATORY [facility] 56-02 Neutrophils % 73.0 40.0 - 75.0 % 01/08/2025 8:13 AM EST [facility] 56-02 Lymphocytes % 8.0(L) 18.0 - 42.0 % 01/08/2025 8:13 AM EST [facility] 56-02 Monocytes % 16.0(H) 1.0 - 11.0 % 01/08/2025 8:13 AM EST [facility] 56-02 Metamyelocytes % 3.0(H) <=0.0 % 01/08/20 8:13 AM EST [facility] 56-02 Absolute Neutrophils 8.28(H) 1.80 - 7.70 K/uL 01/08/2025 8:13 AM [facility] 56- Absolute Lymphocytes 0.91(L) 1.00 - 4.80 K/uL 01/08/2025 8:13 AM [facility] 56- Absolute Monocytes 1.81(H) 0.00 - 1.10 K/uL 01/08/2025 8:13 AM [facility] 56- Absolute Metamyelocytes 0.34(H) <=0.00 K/uL 01/08/2025 8:13 AM [facility] 56- nRBCs 01/08/2025 8:13 AM [facility] 56- Elliptocytes Moderate( A) None Seen 01/08/2025 8:13 AM [facility] 56- Polychromasia Moderate( A) None Seen 01/08/2025 8:13 AM [facility] 56- Blood Venous blood specimen / Unknown Central Line / Unknown 01/08/2025 7:36 AM EST 01/08/2025 7:51 AM EST Logan Plummer MD LAB BLOOD ORDERABLES Final Res ult Performing Organization Address City/[facility]/ZIP Co de Phone Number [facility] [address] [place] [address] * DIFFERENTIAL, AUTOMATED (01/08/2025 7:36 AM EST) Blood Venous blood specimen / Unknown Central Line / Unknown 01/08/2025 7:36 AM EST 01/08/2025 7:51 AM EST Logan Plummer MD LAB BLOOD ORDERABLES Final Res ult [facility] [address] [place] [address] * (ABNORMAL) CBC (01/08/2025 7:36 AM EST) WBC 11.34(H) 4.00 - 10.80 K/uL 01/08/2025 8:13 AM [facility] 56- RBC 3.12 3.85 - 5.15 M/uL 01/08/2025 8:13 AM [facility] 56- HGB 8.6(L) 12.0 - 15.3 g/dL 01/08/2025 8:13 AM [facility] 56- HCT 29.0(L) 36.0 - 45.2 % 01/08/2025 8:13 AM [facility] 56- MCV 92.9 81.5 - 97.5 fL 01/08/2025 8:13 AM [facility] 56- MCH 27.6 27.0 - 34.0 pg 01/08/2025 8:13 AM [facility] 56- MCHC 29.7 32.0 - 36.0 g/dL 01/08/2025 8:13 AM [facility] 56- RDW 18.8 11.5 - 15.5 % 01/08/2025 8:13 AM [facility] 56- PLT 483(H) 140 - 400 K/uL 01/08/2025 8:13 AM [facility] 56- MPV 8.4 6.6 - 11.1 fL 01/08/2025 8:13 AM [facility] 56- Blood Venous blood specimen / Unknown Central Line / Unknown 01/08/2025 7:36 AM EST 01/08/2025 7:51 AM EST us Logan Plummer MD LAB BLOOD ORDERABLES Final Res ult [facility] 56- [address] [place] [address] * (ABNORMAL) URIC ACID (01/08/2025 7:36 AM EST) Uric Acid 1.9(L) 2.4 - 5.7 mg/dL 01/08/2025 2:31 PM EST LABORATORY [facility] Blood Venous blood specimen / Unknown Central Line / Unknown 01/08/2025 7:36 AM EST 01/08/2025 7:51 AM EST us Logan Plummer MD LAB BLOOD ORDERABLES Final Res ult [facility] [address] [place] [address] * (ABNORMAL) COMPREHENSIVE METABOLIC PANEL (01/08/2025 7:36 AM EST) BUN 8 6 - 20 mg/dL 01/08/2025 8:48 AM [facility] 56- CREATININE 0.5 0.5 - 1.0 mg/dL 01/08/2025 8:48 AM [facility] 56- EGFR >90 >=60 mL/min 01/08/2025 8:48 AM [facility] Comment:eGFR is calculated b ased on the CKD-EPI 2020 equation. SODIUM 136 135 - 146 mmol/L 01/08/2025 8:48 AM [facility] 56- POTASSIUM 4.1 3.5 - 5.1 mmol/L 01/08/2025 8:48 AM [facility] 56- CHLORIDE 102 98 - 107 mmol/L 01/08/2025 8:48 AM [facility] 56- CO2 26 22 - 32 mmol/L 01/08/2025 8:48 AM [facility] 56- ANION GAP 8 7 - 15 mmol/L 01/08/2025 8:48 AM [facility] 56- GLUCOSE 95 70 - 120 mg/dL 01/08/2025 8:48 AM [facility] 56- Albumin 3.0(L) 3.8 - 5.0 g/dL 01/08/2025 8:48 AM [facility] 56- AST 23 10 - 35 U/L 01/08/2025 8:48 AM [facility] 56- Alkaline Phosphatase 116 35 - 130 U/L 01/08/2025 8:48 AM [facility] 56- Bilirubin, Total 0.2 <=1.2 mg/dL 01/08/2025 8:48 AM [facility] 56- CALCIUM 8.6 8.4 - 10.2 mg/dL 01/08/2025 8:48 AM [facility] 56- Protein 6.8 6.0 - 8.3 g/dL 01/08/2025 8:48 AM EST [facility] [place] 56-02 ALT 20 10 - 35 U/L 01/08/2025 8:48 AM EST [facility] [place] [facility] 56-02 Blood Venous blood specimen / Unknown Central Line / Unknown 01/08/2025 7:36 AM EST 01/08/2025 7:51 AM EST Logan Plummer MD LAB BLOOD ORDERABLES Final Res ult [facility] 56-[address] [place] [address] * LD (01/08/2025 7:36 AM EST) LD 217 <=250 U/L 01/08/2025 2:3 1 PM EST LABORATORY [facility] Blood Venous blood specimen / Unknown Central Line / Unknown 01/08/2025 7:36 AM EST 01/08/2025 7:51 AM EST Logan Plummer MD LAB BLOOD ORDERABLES Final Res ult LABORATORY [facility] [address] [place] [address] documented in this encounter Visit Diagnoses Diagnosis [...] mL documented in this encounter Care Teams Chemical Tester Relationship Specialty Start Date End Date Stephany Gilbert CRNP [address] [place] [address] [place] [address] PCP - General Nurse Practitioner 02/02/23 documented as of this encounter
--- OUTSIDE RECORDS SUMMARY | 2025-02-26 17:12 | External Medical Summary ---
Author Name Unknown Address Unknown Organization K01:LABORATORY [facility] - [address] [place] [address] Laboratory Report Ordering Provider Test Date Status ERIN FLORES 01/08/2025 07:36:38 Final Observation Date Value Abnormality Reference (Units ) Status Iron 01/08/2025 07:36:38 36 33-151 (ug/dL) Final Iron-binding capacity 01/08/2025 07:36:38 169 Below low normal 250-425 (ug/dL) Final Transferrin Sat % 01/08/2025 07:36:38 21 15-55 (%) Final Performing Location LABORATORY [facility] - [address] [place] [address]
--- OUTSIDE RECORDS SUMMARY | 2025-02-26 17:12 | External Medical Summary ---
Author Name Unknown Address Unknown Organization K01:[facility] [place] [address] [place] [address] Laboratory Report Ordering Provider Test Date Status ERIN FLORES 01/08/2025 07:36:38 Final Observation Date Value Abnormality Reference (Units ) Status Ferritin 01/08/2025 07:36:38 3115 Above high normal 13 -150 (ng/mL) Final Postmenopausal women have hi gher ferritin levels than pre-menopausal women. The above reference interval is based on pre-menopausal women. Performing Location [facility] [place] [address] [place] [address]
--- OUTSIDE RECORDS SUMMARY | 2025-02-26 17:12 | External Medical Summary | Summary of Care ---
Author Name Unknown Organization [facility] Address [address] [facility] [place] [address] Phone [phone] Care Team Providers Care Bag Filler Machine Operator Name Role Phone Stephany Gilbert Primary Care Provider Reason for Visit * Reason Onset Date Comments Information 11/30/2024 Encounter Details Date Type Department Care Team (Late st Contact Info) Description 11/30/2024 Telephone Hematology/Oncology Treatment, [place] [address] [place] [address] Logan Plummer MD 200 [place] [address] Information Allergies Active Allergy Reactions Criticality Noted Date [...] meds) Active Allopurinol 300 MG Oral Tablet (Zyloprim)Indic ations: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 90 Tablet 4 Active Fish Oil 1000 MG Oral Capsule 1 Capsule. Act chrissy Amoxicillin 500 MG Oral Capsule (Amoxil) Take 1 Capsule by mouth in the morning and 1 Capsule before bedtime. 10 Capsule 4 025 Discontin ued(Medic ation List Clean Up) documented as of this encounter (statuses as [...] encounter Miscellaneous Notes * Telephone Encounter - Tara Matthews OSA - 01/03/2025 3:25 PM EST Lm Letter sent PENG Worrell 01/03/2025 3:25 PM * Telephone Encounter - Tara Matthews OSA - 12/31/2024 10:14 AM EST Lmm PENG Worrell 12/31/2024 10:14 AM * Telephone Encounter - Tara Matthews OSA - 12/13/2024 4:10 PM EST Pt currently admitted per pt's spouse. PENG Worrell 12/13/2024 4:10 PM * Telephone Encounter - Gi Lopez CMA - 12/03/2024 1:04 PM EST Notified pt of EAR[facility] note. Pt agrees to EGD/[facility]. GI scheduling please assist pt with scheduling procedures and f/u appt. * Addendum Note - Saeed Ulloa CRNP - 12/03/2024 12:34 PM ESTAddended by: SAEED ULLOA on: 12/03/2024 12:34 PM Modules accepted: Orders * Telephone Encounter - Saeed Ulloa CRNP - 12/03/2024 12:26 PM EST Due to ongoing anemia would recommend colonoscopy and EGD for further eval, please arrange. Follow-up in office after procedure. Would be hesitant to perform VCE. as she has had a history of a small-bowel obstruction in 2021. If need to proceed will need a patency capsule first. Last completed as below: Colonoscopy: 11/09/2023-- The examined portion of the ileum was normal- Diverticulosis in the sigmoid colon- Internal hemorrhoids- The examination was otherwise normal on direct and retroflexion views. EGD: 08/09/2024-- showed diffuse congestion, erythema and vascular pattern in the entire antrum. Noactive or contact bleeding was seen. Concerns for Vascular ectasia versus gastropathy versus malignancy. Biopsies revealed mild chronic gastritis. H pylori negative. Normal examined duodenum. Per [facility], "Above findings not likely to be amenable to any endoscopic therapy". * Addendum Note - Garth Granados RN - 12/03/2024 12:05 PM ESTAddended by: GARTH GRANADOS on: 12/03/2024 12:05 PM Modules accepted: Orders * Telephone Encounter - Garth Granados RN - 12/03/2024 12:03 PM EST Called patient. She accepted appt for IV iron tomorrow at 2pm. Aware that she should be expecting acall from gastro. * Telephone Encounter - Garth Granados RN - 11/30/2024 1:[address] Plummer: "Blood workup done on 11/29/2023: -haptoglobin level --> 489 -Serum iron 15, TIBC 206, iron saturation 7% -Ferritin level --> 1016 -Absolute reticulocyte count --> 150,000. -Uric acid --> 2, LDH --> 320 -bilirubin level 0.4, Overall no evidence of hemolysis. Reticulocytosis noted. Iron saturation is quite low, Ferritin level is on higher side which could be related to the recent blood transfusions and acute phase reactant with the underlying lymphoma diagnosis. Her hemoglobin level is quite low around 5 to 6 range, she gets periodic blood thinning support, appears to be ongoing GI blood loss. Would like to give her intravenous iron the form Venofer 300 mg once a week for 4 weeks. Would ask GI to help us out regarding ongoing GI blood loss as we are planning for systemic chemotherapy for lymphoma diagnosis and her hemoglobin is quite low in the range of 5 - 6 range." Order received for venofer. [place] plan built and rotued for signature. Prior auth not needed for venofer. Patient is currently at [facility] for blood transfusion. Will need to call her later to review order/ schedule. Gastro: please advise on above. Thanks! documented in this encounter Plan of Treatment Upcoming Encounters Date Type Department Care Team (Late st Contact Info) Description 01/08/2025 7:30 AM EST Laboratory Laboratory [place] Jai Mccracken [address] [place], [place] [address] Geetha Mccracken [place] [address] [place] [address] 01/08/2025 8:00 AM EST Office Visit Hematology/Oncology [facility] [place] [address] [place] [phone] Logan Plummer MD [address] [place] [address] 01/08/2025 8:30 AM EST [facility] [address] [place], [place] [phone] Kaykay, Chair 9 Hem Onc [facility] [address] [facility] [place], [place] [address] Scheduled Orders Name Type Priority Associated Diagnoses Orde r Schedule CBC WITH WBC DIFFERENTIAL Lab STAT 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) Every Week for 10 Occurrences starting 12/03/2024 until 12/03/2025, 3 completed EGD, FLEXIBLE, DIAGNOSTIC Procedures Routine 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) Iron deficiency anemia, unspecified iron deficiency anemia type Ordered: 12/03/2024 COLONOSCOPY, DIAGNOSTIC (RECTUM) Procedures Routine 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) Iron deficiency anemia, unspecified iron deficiency anemia type Ordered: 12/03/2024 Scheduled Procedures Name Priority Associated Diagnoses Date/Ti [...] D LEVEL ONCE IN A LIFETIME-USE SMARTSET# 78319 Completed 10/25/2008 Pneumococcal Vaccine: 50+ Years Completed [...] this encounter Medical Devices Implanted Type Area Hand I Cutter Device Identifier Shelf Expiration Date Model / Serial / Lot Power Port 8fr Sngl Lumen Plas - [id number] Implanted:Qty : 1 on 12/05/2024 by Taco Sanchez MD at OR [facility] Left: Chest CR BARD : PERIPHERAL VASCULAR [id number] 07/14/2025 [id number] / / [id number] documented as of this encounter Visit Diagnoses Diagnosis 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
--- OUTSIDE RECORDS SUMMARY | 2025-02-26 17:12 | External Medical Summary | Summary of Care ---
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 (HCC) Prevention of chemotherapy-induced neutropenia Procedures NM INJECTION, RITUXIMAB-PVVR, BIOSIMILAR, (RUXIENCE), 10 MG NM INJ CYCLOPHOSPHAMD AUROMEDIC NM BRENTUXIMAB VEDOTIN INJ NM INJECTION, Logan Person MD [address] [place] [address], [place] [address] Phone: tel: fax: Hematology/Oncology Treatment, [address] [address] Phone: tel: fax: Referral ID Status Reason Start Date Expiration Date V isits Requested Visits Authorized [id number] Authorized 11/29/2024 11/13/[phone] Encounter Details Date Type Department Care Team (Latest Contact Info) Description 01/09/2025 2:00 PM EST Immunization/ Injection Hematology/Oncology Treatment, [address] [address] Kaykay, Chair 6 Hem Onc [address] [place] [address] Encounter for antineoplastic chemotherapy*; Diffuse large [...] AM EDT Nurse Only Hematology/Oncology [address], [address] [phone] Kaykay, Chair 1 Hem Onc [address] [place] [address] 01/29/2025 8:00 AM EDT Office Visit Hematology/Oncology [address] [phone] Etelvina Mo CRNP [address] [place] [address] [place] [address] 01/29/2025 8:30 AM EDT Hem/Onc Treatment Hematology/Oncology Treatment, [address] [phone] Kaykay, Chair 7 Hem Onc [address] [place] [address] 02/11/2025 12:45 PM EDT Imaging Radiology [facility] [address] [facility] [address] [place] [phone] 02/19/2025 8:00 AM EDT Office Visit Hematology/Oncology [facility] [address] [facility] [place] [phone] Logan Plummer MD [address] [place] [address] Scheduled Procedures Name Priority Associated Diagnoses Date/Ti [...] D LEVEL ONCE IN A LIFETIME-USE SMARTSET# 06751 Completed 10/25/2008 Pneumococcal Vaccine: 50+ Years Completed [...] encounter Medical Devices Implanted Type Area Manager Automotive Device Identifier Shelf Expiration Date Model / Serial / Lot Power Port 8fr Sngl Lumen Plas - [id number] Implanted:Qty : 1 on 12/05/2024 by Taco Sanchez MD at OR [facility] Left: Chest CR BARD : PERIPHERAL VASCULAR [id number] 07/14/2025 [id number] / / [id number] documented as of this encounter Visit Diagnoses [...] Upper documented in this encounter Care Teams Manager Spring Relationship Specialty Start Date End Date Stephany Gilbert CRNP [address] [place] [address] [place] [address] PCP - General Nurse Practitioner 02/02/23 documented as of this encounter
--- OUTSIDE RECORDS SUMMARY | 2025-02-26 17:12 | External Medical Summary ---
Author Name Unknown Address Unknown Organization K09:[facility] [place] [address]- [address] [place] [address] Laboratory Report Ordering Provider Test Date Status ERIN FLORES 01/08/2025 07:36:38 Final Observation Date Value Abnormality Reference (Units ) Status BUN 01/08/2025 07:36:38 8 6-20 (mg/dL) Final Creatinine 01/08/2025 07:36:38 0.5 0.5-1.0 (mg/dL) Final Glomerular filtration rate/1.73 sq M.predicted [Volume Rate/Area] in Serum, Plasma or Blood by Creatinine-based formula (CKD-EPI) 01/08/2025 07:36:38 >90 >=60 (mL/min) Final eGFR is calculated based on the CKD-EPI 2020 equation. Sodium 01/08/2025 07:36:38 136 135-146 (m mol/L) Final Potassium 01/08/2025 07:36:38 4.1 3.5-5.1 (m mol/L) Final Cl 01/08/2025 07:36:38 102 98-107 (mm ol/L) Final CO2 01/08/2025 07:36:38 26 22-32 (mmo l/L) Final Anion gap 01/08/2025 07:36:38 8 7-15 (mmol /L) Final Glucose 01/08/2025 07:36:38 95 70-120 (mg /dL) Final Albumin 01/08/2025 07:36:38 3.0 Below low normal 3.8 -5.0 (g/dL) Final AST (Aspartate aminotransferase) 01/08/2025 07:36:38 23 10-35 (U/L) Fin al Alk Phos 01/08/2025 07:36:38 116 35-130 (U/ L) Final Bilirubin, Total 01/08/2025 07:36:38 0.2 <=1 .2 (mg/dL) Final Calcium 01/08/2025 07:36:38 8.6 8.4-10.2 ( mg/dL) Final Protein 01/08/2025 07:36:38 6.8 6.0-8.3 (g /dL) Final ALT (Alanine aminotransferase) 01/08/2025 07:36:38 20 10-35 (U/L) Hair magdaleno Performing Location [facility] [place] [address] [place] [address]
--- OUTSIDE RECORDS SUMMARY | 2025-02-26 17:12 | External Medical Summary | Summary of Care ---
Author Name Unknown Organization [facility] Address [address] [facility] [address] Phone [phone] Care Team Providers Care Web Site Developer Name Role Phone Stephany Gilbert Primary [...] INJ OK INJECTION, Logan Person MD 200 [facility] [place] [address] Phone: tel: fax: Hematology/Oncology Treatment, [address] [address] Phone: tel: fax: Referral ID Status Reason Start Date Expiration Date V isits Requested Visits Authorized [id number] Authorized 11/29/2024 11/13/[phone] Encounter Details Date Type Department Care Team (Latest Contact Info) Description 01/08/2025 8:30 AM EST Hem/Onc Treatment Hematology/Oncolog y Treatment, [address] [place] [phone] Kaykay, Chair 9 Hem Onc [place] [address] [place] [address] Prevention of chemotherapy-induced neutropenia*; Diffuse large B-cell [...] 7:45 AM EDT Nurse Only Hematology/Oncology Treatment, [address] [phone] Kaykay, Chair 1 Hem Onc [address] [place] [address] 01/29/2025 8:00 AM EDT Office Visit Hematology/Oncology [facility] [address] [place] [phone] Etelvina Mo CRNP [address] [facility] [address] 01/29/2025 8:30 AM EDT Hem/Onc Treatment Hematology/Oncology Treatment, [address] [place] [phone] Kaykay, Chair 7 Hem Onc [address] [place] [address] 02/11/2025 12:45 PM EDT Imaging Radiology [address], [place] [address] [place] [phone] 02/14/2025 10:00 AM EDT Office Visit Hematology/Oncology [facility] [place] [address] [place] [phone] Logan Plummer MD [facility] [place] [address] Scheduled Procedures Name Priority Associated Diagnoses Date/Ti [...] D LEVEL ONCE IN A LIFETIME-USE SMARTSET# 73469 Completed 10/25/2008 Pneumococcal Vaccine: 50+ Years Completed [...] this encounter Medical Devices Implanted Type Area Head Of Loss Prevention Device Identifier Shelf Expiration Date Model / Serial / Lot Power Port 8fr Sngl Lumen Plas - [id number] Implanted:Qty : 1 on 12/05/2024 by Taco Sanchez MD at OR [facility] Left: Chest CR BARD : PERIPHERAL VASCULAR [id number] 07/14/2025 [id number] / / [id number] documented as of this encounter Procedures Procedure [...] 150 ng/mL 01/08/2025 3:29 PM EST [facility] [place]:Postmenopausal women have higher ferritin levels than pre-menopausal women. The above reference interval is based on pre-menopausal women. Blood Venous blood specimen / Unknown Central Line / Unknown 01/08/2025 7:36 AM EST 01/08/2025 7:51 AM EST us Logan Plummer MD LAB BLOOD ORDERABLES Final Res ult [facility] [address] [place] [address] * (ABNORMAL) IRON SCREEN, INCLUDING TIBC (01/08/2025 7:36 AM EST) Pathologist [facility] Iron 36 33 - 151 ug/dL 01/08/2025 [...] LAB BLOOD ORDERABLES Final Res ult [facility] [place] [address] [place] [address] * (ABNORMAL) DIFFERENTIAL, TECHNOLOGIST REVIEW (01/08/2025 7:36 AM EST) [facility] WBC 11.34(H) 4.00 - 10.80 K/uL 01/08/2025 8:13 AM EST [facility] 56-02 Neutrophils % 73.0 40.0 - 75.0 % 01/08/2025 8:13 AM EST [facility] 56-02 Lymphocytes % 8.0(L) 18.0 - 42.0 % 01/08/2025 8:13 AM EST [facility] 56-02 Monocytes % 16.0(H) 1.0 - 11.0 % 01/08/2025 8:13 AM EST [facility] 56-02 Metamyelocytes % 3.0(H) <=0.0 % 01/08/20 8:13 AM EST [facility] 56-02 Absolute Neutrophils 8.28(H) 1.80 - 7.70 K/uL 01/08/2025 8:13 AM EST [facility] 56-02 Absolute Lymphocytes 0.91(L) 1.00 - 4.80 K/uL 01/08/2025 8:13 AM EST [facility] 56-02 Absolute Monocytes 1.81(H) 0.00 - 1.10 K/uL 01/08/2025 8:13 AM EST [facility] 56 Absolute Metamyelocytes 0.34(H) <=0.00 K/uL 01/08/2025 8:13 AM EST [facility] 56- nRBCs 01/08/2025 8:13 AM EST [facility] 56- Elliptocytes Moderate( A) None Seen 01/08/2025 8:13 AM EST [facility] Polychromasia Moderate( A) None Seen 01/08/2025 8:13 AM EST [facility] 56 Blood Venous blood specimen / Unknown Central Line / Unknown 01/08/2025 7:36 AM EST 01/08/2025 7:51 AM EST us Logan Plummer MD LAB BLOOD ORDERABLES Final Res ult [facility] [address] [place] [address] * DIFFERENTIAL, AUTOMATED (01/08/2025 7:36 AM EST) Blood Venous blood specimen / Unknown Central Line / Unknown 01/08/2025 7:36 AM EST 01/08/2025 7:51 AM EST us Logan Plummer MD LAB BLOOD ORDERABLES Final Res ult [facility] [address] [place] [address] * (ABNORMAL) CBC (01/08/2025 7:36 AM EST) WBC 11.34(H) 4.00 - 10.80 K/uL 01/08/2025 8:13 AM EST [facility] RBC 3.12 3.85 - 5.15 M/uL 01/08/2025 8:13 AM EST [facility] HGB 8.6(L) 12.0 - 15.3 g/dL 01/08/2025 8:13 AM EST [facility] HCT 29.0(L) 36.0 - 45.2 % 01/08/2025 8:13 AM [facility] 56- MCV 92.9 81.5 - 97.5 fL 01/08/2025 8:13 AM [facility] 56- MCH 27.6 27.0 - 34.0 pg 01/08/2025 8:13 AM [facility] 56- MCHC 29.7 32.0 - 36.0 g/dL 01/08/2025 8:13 AM [facility] 56- RDW 18.8 11.5 - 15.5 % 01/08/2025 8:13 AM [facility] 56- PLT 483(H) 140 - 400 K/uL 01/08/2025 8:13 AM [facility] 56- MPV 8.4 6.6 - 11.1 fL 01/08/2025 8:13 AM [facility] 56- Blood Venous blood specimen / Unknown Central Line / Unknown 01/08/2025 7:36 AM EST 01/08/2025 7:51 AM EST Logan Plummer MD LAB BLOOD ORDERABLES Final Res ult [facility] 56-[address] [place] [address] * (ABNORMAL) URIC ACID (01/08/2025 7:36 AM EST) Uric Acid 1.9(L) 2.4 - 5.7 mg/dL 01/08/2025 2:31 PM EST [facility] [place] Blood Venous blood specimen / Unknown Central Line / Unknown 01/08/2025 7:36 AM EST 01/08/2025 7:51 AM EST Logan Plummer MD LAB BLOOD ORDERABLES Final Res ult [facility] [place] [address] [place] [address] * (ABNORMAL) COMPREHENSIVE METABOLIC PANEL (01/08/2025 7:36 AM EST) BUN 8 6 - 20 mg/dL 01/08/2025 8:48 AM [facility] 56- CREATININE 0.5 0.5 - 1.0 mg/dL 01/08/2025 8:48 AM [facility] 56- EGFR >90 >=60 mL/min 01/08/2025 8:48 AM [facility] 56- Comment:eGFR is calculated b ased on the CKD-EPI 2020 equation. SODIUM 136 135 - 146 mmol/L 01/08/2025 8:48 AM [facility] 56- POTASSIUM 4.1 3.5 - 5.1 mmol/L 01/08/2025 8:48 AM [facility] 56- CHLORIDE 102 98 - 107 mmol/L 01/08/2025 8:48 AM [facility] 56- CO2 26 22 - 32 mmol/L 01/08/2025 8:48 AM [facility] [employer] [place] 56- ANION GAP 8 7 - 15 mmol/L 01/08/2025 8:48 AM [facility] 56- GLUCOSE 95 70 - 120 mg/dL 01/08/2025 8:48 AM [facility] 56- Albumin 3.0(L) 3.8 - 5.0 g/dL 01/08/2025 8:48 AM [facility] 56- AST 23 10 - 35 U/L 01/08/2025 8:48 AM [facility] 56- Alkaline Phosphatase 116 35 - 130 U/L 01/08/2025 8:48 AM [facility] 56- Bilirubin, Total 0.2 <=1.2 mg/dL 01/08/2025 8:48 AM [facility] 56- CALCIUM 8.6 8.4 - 10.2 mg/dL 01/08/2025 8:48 AM [facility] [employer] [place] 56- Protein 6.8 6.0 - 8.3 g/dL 01/08/2025 8:48 AM [facility] 56- ALT 20 10 - 35 U/L 01/08/2025 8:48 AM [facility] 56- Blood Venous blood specimen / Unknown Central Line / Unknown 01/08/2025 7:36 AM EST 01/08/2025 7:51 AM EST us Logan Plummer MD LAB BLOOD ORDERABLES Final Res ult [facility] [place] [address] [place] [address] * LD (01/08/2025 7:36 AM EST) LD 217 <=250 U/L 01/08/2025 2:3 1 PM EST [facility] [place] Blood Venous blood specimen / Unknown Central Line / Unknown 01/08/2025 7:36 AM EST 01/08/2025 7:51 AM EST us Logan Plummer MD LAB BLOOD ORDERABLES Final Res ult [facility] [place] [address] [place] [address] documented in this encounter Visit Diagnoses Diagnosis [...] mL documented in this encounter Care Teams Web Site Developer Relationship Specialty Start Date End Date Stephany Gilbert CRNP [address] [place] [address] [place] [address] PCP - General Nurse Practitioner 02/02/23 documented as of this encounter
--- OUTSIDE RECORDS SUMMARY | 2025-02-26 17:13 | External Medical Summary | Summary of Care ---
Author Name Unknown Organization [facility] Address [address] [facility] [place] [address] Phone [phone] Care Team Providers Care Tilting Head Band Sawyer Name Role Phone VladimirAnnabelleStephanyastrid ELLIOTT Primary Care Provider Reason for Visit * Reason Onset Date Comments Test Results Lab 12/31/2024 Precert Future 12/31/2024 Sravanthi gandara Encounter Details Date Type Department Care Team (Late st Contact Info) Description 12/31/2024 Telephone Hematology/Oncology [facility] [address] [place] [phone] Logan Plummer MD 200 [facility] [address] Test Results Lab; Precert Future (Sravanthi... Allergies Active Allergy Reactions Criticality Noted Date Comments Nickel Rash 03/11/2015 documented as of this encounter (statuses as of 01/02/2025) Medications CALTRATE 600 + D 600-125 MG-IU [...] as of this encounter (statuses as of 01/02/2025) Active Problems Problem Noted Date Diagnosed Date Prevention of chemotherapy-induced neutropenia 0 12/31/2024 Diffuse large B-cell lymphoma of lymph nodes of neck 11/29/2024 Encounter for antineoplastic chemotherapy 2024 BREAST CANCER UNSPECIFIED,FEMALE 10/25/2008 Other iron deficiency anemia Overview (08/15/2017): ICD-10 update of inactive term Osteoporosis documented as of this encounter (statuses as of 01/02/2025) Resolved Problems Problem Noted Date Diagnosed Date Resolved Date Other iron deficiency anemia 12/19/2008 Overview (08/15/2017): Resolved per Duplicate Protocol #2. ICD-10 update of inactive term documented as of this encounter (statuses as of 01/02/2025) Social History Tobacco Use Types Packs/Day Years [...] and hematocrit - 7.8/26.3, Platelet count of [id number] -ANC 0.05. She is at high-risk for [...] Description 01/08/2025 7:30 AM EST Laboratory Laboratory [facility] [place] [address] [facility] [place] [phone] Kay[place], Lab [address] [place] [address] 01/08/2025 8:00 AM EST Office Visit Hematology/Oncology [facility] [place] [address] [facility] [place] [phone] Logan Plummer MD 200 [facility] [place] [address] 01/08/2025 8:30 AM EST [facility] [address] [facility] [address] [place] [phone] Kaykay, Chair 9 Hem Onc [address] [place] [address] Scheduled Procedures Name Priority Associated Diagnoses Date/Ti [...] D LEVEL ONCE IN A LIFETIME-USE SMARTSET# 25303 Completed 10/25/2008 Pneumococcal Vaccine: 50+ Years Completed [...] this encounter Medical Devices Implanted Type Area Blue Prints Trimmer Device Identifier Shelf Expiration Date Model / Serial / Lot Power Port 8fr Sngl Lumen Plas - [id number] Implanted:Qty : 1 on 12/05/2024 by Taco Sanchez MD at OR [facility] Left: Chest CR BARD : PERIPHERAL VASCULAR [id number] 07/14/2025 [id number] / / [id number] documented as of this encounter Care Teams Tilting Head Band Sawyer Relationship Specialty Start Date End Date Stephany Gilbert CRNP [address] [place] [address] [place] [address] PCP - General Nurse Practitioner 02/02/23 documented as of this encounter
--- OUTSIDE RECORDS SUMMARY | 2025-02-26 17:13 | External Medical Summary ---
Author Name Unknown Address Unknown Organization K09[facility] [address] Laboratory Report Ordering Provider Test Date Status ERIN FLORES 12/31/2024 09:10:54 Final Observation Date Value Abnormality Reference (Units ) Status WBC, Total 12/31/2024 09:10:54 1.19 Below low normal 4. 00-10.80 (K/uL) Final RBC 12/31/2024 09:10:54 2.86 3.85-5.15 (M/uL) Final Hemoglobin 12/31/2024 09:10:54 7.8 Below low normal 12 .0-15.3 (g/dL) Final HCT 12/31/2024 09:10:54 26.3 Below low normal 36. 0-45.2 (%) Final MCV 12/31/2024 09:10:54 92.0 81.5-97.5 (fL) Final MCH 12/31/2024 09:10:54 27.3 27.0-34.0 (pg) Final MCHC 12/31/2024 09:10:54 29.7 32.0-36.0 (g/dL) Final RDW 12/31/2024 09:10:54 18.7 11.5-15.5 (%) Final Platelets 12/31/2024 09:10:54 201 140-400 (K /uL) Final MPV 12/31/2024 09:10:54 9.3 6.6-11.1 ( fL) Final Performing Location [facility] [address]
--- OUTSIDE RECORDS SUMMARY | 2025-02-26 17:13 | External Medical Summary | Summary of Care ---
Author Name Unknown Organization [facility] Address [address] [facility] [place] [address] Phone [phone] Care Team Providers Care Insurance Counselor Name Role Phone VladimirAnnabelleStephanyastrid ELLIOTT Primary Care Provider Reason for Visit * Reason Onset Date Comments Test Results Lab 12/31/2024 Precert Future 12/31/2024 Sravanthi gandara Encounter Details Date Type Department Care Team (Late st Contact Info) Description 12/31/2024 Telephone Hematology/Oncology [facility] [address] [place] [phone] Logan [facility]ummer [facility] 200 [facility] [address] Test Results Lab; Precert Future (Sravanthi... Allergies [...] and hematocrit - 7.8/26.3, Platelet count of [id number] -ANC 0.05. She is at high-risk for [...] Description 01/08/2025 7:30 AM EST Laboratory Laboratory [facility] [place] 200 [facility] [place] [address] [place], Lab [facility] 200 [facility] [place] [address] 01/08/2025 8:00 AM EST Office Visit Hematology/Oncology [facility] [place] [address] [place] [address] Logan Plummer MD 200 [facility] [place] [address] 01/08/2025 8:30 AM EST Hem/Onc Treatment Hematology[facility]Oncology Treatment, [place] [facility] [place] [phone] Kaykay, Chair 9 Hem On[address] [place] [address] Scheduled Procedures Name Priority Associated Diagnoses Date/Ti [...] D LEVEL ONCE IN A LIFETIME-USE SMARTSET# 43347 Completed 10/25/2008 Pneumococcal Vaccine: 50+ Years Completed [...] this encounter Medical Devices Implanted Type Area Mapping Pilot Device Identifier Shelf Expiration Date Model / Serial / Lot Power Port 8fr Sngl Lumen Plas - [id number] Implanted:Qty : 1 on 12/05/2024 by Taco Sanchez MD at OR [facility] Left: Chest CR BARD : PERIPHERAL VASCULAR [id number] 07/14/2025 [id number] / / [id number] documented as of this encounter Care Teams Insurance Counselor Relationship Specialty Start Date End Date Stephany Gilbert CRNP [address] [place] [address] [place] [address] PCP - General Nurse Practitioner 02/02/23 documented as of this encounter
--- OUTSIDE RECORDS SUMMARY | 2025-02-26 17:13 | External Medical Summary ---
Author Name Unknown Address Unknown Organization K09:[facility] [address] [place] [address] Laboratory Report Ordering Provider Test Date Status ERIN FLORES 12/31/2024 09:10:54 Final Observation Date Value Abnormality Reference (Units ) Status SYNC LEUKOCYTES IN BLOOD BY AUTOMATED COUNT 12/31/2024 09:10:54 1.19 Below low normal 4.00-10.80 (K/uL) Final Neutrophils/100 leukocytes in Blood by Manual count 12/31/2024 09:10:54 4.0 Below low normal 40.0-75.0 (%) Final Lymphocytes/100 leukocytes in Blood by Manual count 12/31/2024 09:10:54 28.0 18.0-42.0 (%) Final Monocytes/100 leukocytes in Blood by Manual count 12/31/2024 09:10:54 66.0 Above high normal 1.0-11.0 (%) Final Eosinophils/100 leukocytes in Blood by Manual count 12/31/2024 09:10:54 2.0 0.0-6.0 (%) Final Neutrophils [#/volume] in Blood by Manual count 12/31/2024 09:10:54 0.05 Below low normal 1.80-7.70 (K/uL) Final Lymphocytes [#/volume] in Blood by Manual count 12/31/2024 09:10:54 0.33 Below low normal 1.00-4.80 (K/uL) Final Monocytes [#/volume] in Blood by Manual count 12/31/2024 09:10:54 0.79 0.00-1.10 (K/uL) Final Eosinophils [#/volume] in Blood by Manual count 12/31/2024 09:10:54 0.02 0.00-0.70 (K/uL) Final Nucleated erythrocytes/100 leukocytes [Ratio] in Blood by Automated count 12/31/2024 09:10:54 Final Variant lymphocytes [Presence] in Blood by Light microscopy 12/31/2024 09:10:54 Present Abnormal None Seen Final Giant platelets [Presence] in Blood by Light microscopy 12/31/2024 09:10:54 Present Abnormal None Seen Final Performing Location [facility] [address] [place] [address]
--- OUTSIDE RECORDS SUMMARY | 2025-02-26 17:13 | External Medical Summary | Summary of Care ---
Author Name Unknown Organization [facility] Address [address] [facility] [place] [address] Phone [phone] Care Team Providers Care Regional Operations Director Name Role Phone Stephany Gilbert Primary Care Provider Reason for Visit * Reason Onset Date Comments Medication Problem 01/01/2025 levoFLOXacin 500 MG Oral Tablet (Levaquin) Encounter Details Date Type Department Care Team (Late st Contact Info) Description 01/01/2025 Telephone Hematology/Oncology [facility] 200 [facility] [place] [phone] Logan [facility]ummer MD 200 [facility] [address] Medication Problem (levoFLOXacin 500 MG Or... Allergies Active Allergy Reactions Criticality Noted Date Comments Nickel Rash 03/11/2015 documented as of this encounter (statuses as of 01/01/2025) Medications CALTRATE 600 + D 600-125 MG-IU [...] as of this encounter (statuses as of 01/01/2025) Active Problems Problem Noted Date Diagnosed Date Prevention of chemotherapy-induced neutropenia 0 12/31/2024 Diffuse large B-cell lymphoma of lymph nodes of neck 11/29/2024 Encounter for antineoplastic chemotherapy 2024 BREAST CANCER UNSPECIFIED,FEMALE 10/25/2008 Other iron deficiency anemia Overview (08/15/2017): ICD-10 update of inactive term Osteoporosis documented as of this encounter (statuses as of 01/01/2025) Resolved Problems Problem Noted Date Diagnosed Date Resolved Date Other iron deficiency anemia 12/19/2008 Overview (08/15/2017): Resolved per Duplicate Protocol #2. ICD-10 update of inactive term documented as of this encounter (statuses as of 01/01/2025) Social History Tobacco Use Types Packs/Day Years [...] Telephone Encounter - Nadiya Granados RN - 01/01/2025 12:36 PM EST Per uptodate: "Risk Rating B: No action needed Summary QT-prolonging Agents (Indeterminate Risk - Avoid) may enhance the QTc- prolonging effect of QT-prolonging Agents (Moderate Risk). Severity Minor Reliability Rating Fair Patient Management No action is required for the majority of patients. Increased ECG monitoring maybe considered in patients at high risk for QT interval prolongation (eg, older age, female sex, bradycardia, hypokalemia, hypomagnesemia, heart disease, and higher drug concentrations)." Reviewed with Dr Plummer- patient is only on levaquin short term, trazodone is as needed if patient cannot sleep. Ok to take levaquin. Called patient, she verbalized understanding.. * Telephone Encounter - Carla Boyle social group worker - 01/01/2025 12:19 PM EST PT calling stating pharmacy questioned her about being on this medication levoFLOXacin 500 MG Oral Tablet (Levaquin) and trazadone 50 mg at night. Pharmacy told pt they dont know if they should be taken together, and now patient is concerned. Please call patient back to discuss. PT stated she just started on the trazadone about two weeks ago. Thank you, Carla Boyle Pig Handler [facility] 01/01/2025,12:23 PM documented in this encounter Plan of Treatment Upcoming Encounters Date Type Department Care Team (Kingsley Contact Info) Description 01/08/2025 7:30 AM EST Laboratory [facility] [place] [address] [place] [address] [place], Lab [facility] [address] [place] [address] 01/08/2025 8:00 AM EST Office Visit Hematology/Oncology [facility] [place] [address] [place] [phone] Logan Plummer MD [address] [place] [address] 01/08/2025 8:30 AM EST Hem/Onc Treatment Hematology/Oncology Treatment, [place] [address] [place] [phone] [place], Chair 9 Hem Onc [address] [place] [address] Scheduled Procedures Name Priority Associated Diagnoses Date/Ti [...] D LEVEL ONCE IN A LIFETIME-USE SMARTSET# 03647 Completed 10/25/2008 Pneumococcal Vaccine: 50+ Years Completed [...] this encounter Medical Devices Implanted Type Area Supportability Engineer Device Identifier Shelf Expiration Date Model / Serial / Lot Power Port 8fr Sngl Lumen Plas - [id number] Implanted:Qty : 1 on 12/05/2024 by Taco Sanchez MD at [facility] Left: Chest CR BARD : PERIPHERAL VASCULAR [id number] 07/14/2025 [id number] / / [id number] documented as of this encounter Care Teams Regional Operations Director Relationship Specialty Start Date End Date Stephany Gilbert CRNP [address] [place] [address] [place] [address] PCP - General Nurse Practitioner 02/02/23 documented as of this encounter
--- OUTSIDE RECORDS SUMMARY | 2025-02-26 17:13 | External Medical Summary | Summary of Care ---
Author Name Unknown Organization [facility] Address [address] [facility] [place] [address] Phone [phone] Care Team Providers Care Electrical Equipment Technician Name Role Phone VladimirAnnabelleStephanyastrid ELLIOTT Primary Care Provider Reason for Visit * Reason Onset Date Comments Test Results Lab 12/31/2024 Precert Future 12/31/2024 Sravanthi gandara Encounter Details Date Type Department Care Team (Late st Contact Info) Description 12/31/2024 Telephone Hematology/Oncology [facility] [address] [place] [phone] Logan [facility] MD 200 [facility] [address] Test Results Lab; Precert Future (Sravanthi... Allergies [...] - 01/03/2025 7:39 AM EST Referral updated. * Telephone Encounter - Nadiya Granados RN [...] to her med list. Order received for Sravanthi, awaiting referral. Pre-cert: Patient is coming 01/08 for next chemotherapy, please submit Sravanthi referral urgently. Thank you. * Telephone Encounter - Saul Ramso RN - 12/31/2024 3:30 PM EST Blood workup done on 12/21/2024: -WBC 1100, Hemoglobin and hematocrit - 7.8/26.3, Platelet count of [id number] -ANC 0.05. She is at high-risk for [...] Description 01/08/2025 7:30 AM EST Laboratory Laboratory [facility] [address] [place] [phone] [place], Lab [address] [place] [address] 01/08/2025 8:00 AM EST Office Visit Hematology/Oncology [facility] [address] [place] [phone] Logan Plummer MD 200 [facility] [place] [address] 01/08/2025 8:30 AM EST Hem/Onc Treatment Hematology/Oncology Treatment, [place] 200 [facility] [place] [phone] [place], Chair 9 Hem Onc [address] [place] [address] Scheduled Procedures Name Priority Associated Diagnoses Date/Ti [...] D LEVEL ONCE IN A LIFETIME-USE SMARTSET# 76409 Completed 10/25/2008 Pneumococcal Vaccine: 50+ Years Completed [...] this encounter Medical Devices Implanted Type Area Correctional Medicine Physician Device Identifier Shelf Expiration Date Model / Serial / Lot Power Port 8fr Sngl Lumen Plas - [id number] Implanted:Qty : 1 on 12/05/2024 by Taco Sanchez MD at [facility] Left: Chest CR BARD : PERIPHERAL VASCULAR [id number] 07/14/2025 [id number] / / [id number] documented as of this encounter Care Teams Electrical Equipment Technician Relationship Specialty Start Date End Date Stephany Gilbert CRNP [address] [place] [address] [place] [address] PCP - General Nurse Practitioner 02/02/23 documented as of this encounter
--- OUTSIDE RECORDS SUMMARY | 2025-02-26 17:13 | External Medical Summary | Summary of Care ---
Author Name Unknown Organization [facility] Address [address] [facility] [place] [address] Phone [phone] Care Team Providers Care Housecleaner Name Role Phone Stephany Gilbert Primary Care Provider Encounter Details Date Type Department Care Team (Late st Contact Info) Description 12/26/2024 Orders Only Hematology/Oncology Treatment, [address] [phone] Logan Plummer MD 200 [place] [address] Allergies Active Allergy Reactions Criticality Noted Date Comments Nickel Rash 03/11/2015 documented as of this encounter (statuses as of 12/27/2024) Medications CALTRATE 600 + D 600-125 MG-IU [...] each cycle 10 Tablet 5 5 Active documented as of this encounter (statuses as of 12/27/2024) Active Problems Problem Noted Date Diagnosed Date 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 ICD-10 update of inactive term documented as of this encounter (statuses as of 12/27/2024) Social History Tobacco Use Types Packs/Day Years [...] Team (Late st Contact Info) Description 12/31/2024 9:00 AM EST [facility] [phone] Kay[place], Chair 5 Hem Onc Scene 200 [facility] [place] [address] 01/08/2025 7:30 AM EST Laboratory Laboratory [facility] [place] [address] [place] [phone] [place], Lab [facility] 200 [facility] [place] [address] 01/08/2025 8:00 AM EST Office Visit Hematology/Oncology [facility] [place] 200 [facility] [place] [phone] Logan Plummer MD [address] [place] [address] 01/08/2025 8:30 AM EST [facility] 200 [facility], [place] [phone] Kaykay, Chair 9 Hem Onc [facility] 200 [facility] [place] [address] Scheduled Procedures Name Priority Associated Diagnoses Date/Ti [...] D LEVEL ONCE IN A LIFETIME-USE SMARTSET# 58446 Completed 10/25/2008 Pneumococcal Vaccine: 50+ Years Completed [...] this encounter Medical Devices Implanted Type Area Natural Gas Plant Supervisor Device Identifier Shelf Expiration Date Model / Serial / Lot Power Port 8fr Sngl Lumen Plas - [id number] Implanted:Qty : 1 on 12/05/2024 by Taco Sanchez MD at [facility] Left: Chest CR BARD : PERIPHERAL VASCULAR [id number] 07/14/2025 [id number] / / [id number] documented as of this encounter Care Teams Housecleaner Relationship Specialty Start Date End Date Stephany Gilbert CRNP [address] [place] [address] [place] [address] PCP - General Nurse Practitioner 02/02/23 documented as of this encounter
--- OUTSIDE RECORDS SUMMARY | 2025-02-26 17:13 | External Medical Summary | Summary of Care ---
Author Name Unknown Organization [facility] Address [address] [facility] [place] [address] Phone [phone] Care Team Providers Care Unit Secretary Name Role Phone Stephany Gilbert Primary Care Provider Reason for Visit * Reason Onset Date Comments Information 11/30/2024 Encounter Details Date Type Department Care Team (Late st Contact Info) Description 11/30/2024 Telephone Hematology/Oncology Treatment, [place] [address] [place] [address] Logan Plummer MD 200 [place] [address] Information Allergies Active Allergy Reactions Criticality Noted Date Comments Nickel Rash 03/11/2015 documented as of this encounter (statuses as of 12/31/2024) Medications CALTRATE 600 + D 600-125 MG-IU [...] as of this encounter (statuses as of 12/31/2024) Active Problems Problem Noted Date Diagnosed Date 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 ICD-10 update of inactive term documented as of this encounter (statuses as of 12/31/2024) Social History Tobacco Use Types Packs/Day Years [...] pt of EARL note. Pt agrees to EGD/[place]. GI scheduling please assist pt with scheduling [...] H pylori negative. Normal examined duodenum. Per MNP Gastro, "Above findings not likely to be amenable to any endoscopic therapy". * Addendum Note - Nadiya Granados RN - 12/03/2024 12:05 PM ESTAddended by: NADIYA GRANADOS on: 12/03/2024 12:05 PM Modules accepted: Orders * Telephone Encounter - Nadiya Granados RN - 12/03/2024 12:03 PM EST Called patient. She accepted appt for IV iron tomorrow at 2pm. Aware that she should be expecting acall from gastro. * Telephone Encounter - Nadiya Granados RN - 11/30/2024 1:35 PM EST [...] - 6 range." Order received for venofer. [place] plan built and rotued for signature. Prior auth not needed for venofer. Patient is currently at [facility] for blood transfusion. Will need to call her later to review order/ schedule. Gastro: please advise on above. Thanks! documented in this encounter Plan of Treatment Upcoming Encounters Date Type Department Care Team (Late st Contact Info) Description 01/08/2025 7:30 AM EST Laboratory Laboratory [facility] [place] [address] [place] [phone] [place] [facility] 200 [facility] [place] [address] 01/08/2025 8:00 AM EST Office Visit Hematology/Oncology [facility] [place] [address] [place] [phone] Logan Plummer MD [address] [place] [address] 01/08/2025 8:30 AM EST Hem/Onc Treatment Hematology/Oncology Treatment, [place] [address] [place] [address] [place], Chair 9 Hem Onc [address] [place] [address] Scheduled Orders Name Type Priority Associated Diagnoses [...] D LEVEL ONCE IN A LIFETIME-USE SMARTSET# 81380 Completed 10/25/2008 Pneumococcal Vaccine: 50+ Years Completed [...] this encounter Medical Devices Implanted Type Area Emergency Department Director Device Identifier Shelf Expiration Date Model / Serial / Lot Power Port 8fr Sngl Lumen Plas - [id number] Implanted:Qty : 1 on 12/05/2024 by Taco Sanchez MD at OR [facility] Left: Chest CR BARD : PERIPHERAL VASCULAR [id number] 07/14/2025 [id number] / / [id number] documented as of this encounter Visit Diagnoses Diagnosis 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
--- OUTSIDE RECORDS SUMMARY | 2025-02-26 17:13 | External Medical Summary | Summary of Care ---
Author Name Unknown Organization [facility] Address [address] [facility] [place] [address] Phone [phone] Care Team Providers Care Press Operator Heavy Duty Name Role Phone VladimirAnnabelleStephanyastrid ELLIOTT Primary Care Provider Reason for Visit * Reason Onset Date Comments Test Results Lab 12/31/2024 Precert Future 12/31/2024 Sravanthi gandara Encounter Details Date Type Department Care Team (Late st Contact Info) Description 12/31/2024 Telephone Hematology/Oncology [facility] [address] [place] [phone] Logan Plummer MD 200 [facility] [address] Test Results Lab; Precert Future (Sravanthi... Allergies [...] encounter Miscellaneous Notes * Telephone Encounter - Shaista Whitt OSA [...] and hematocrit - 7.8/26.3, Platelet count of [id number] -ANC 0.05. She is at high-risk for [...] Description 01/08/2025 7:30 AM EST Laboratory Laboratory [facility] [address] [place] [phone] [place], Lab [facility] [place] [address] 01/08/2025 8:00 AM EST Office Visit Hematology/Oncology [facility] [place] [address] [place] [phone] Logan Plummer MD [address] [place] [address] 01/08/2025 8:30 AM EST Hem/Onc Treatment Hematology/Oncology Treatment, [place] [address] [place], [place] [phone] Kaykay, Chair 9 Hem Onc [facility] 200 [facility] [place] [address] Scheduled Procedures Name Priority Associated Diagnoses Date/Ti [...] D LEVEL ONCE IN A LIFETIME-USE SMARTSET# 17435 Completed 10/25/2008 Pneumococcal Vaccine: 50+ Years Completed [...] encounter Medical Devices Implanted Type Area Independent Sales Representative Device Identifier Shelf Expiration Date Model / Serial / Lot Power Port 8fr Sngl Lumen Plas - [id number] Implanted:Qty : 1 on 12/05/2024 by Taco Sanchez MD at [facility] Left: Chest CR BARD : PERIPHERAL VASCULAR [id number] 07/14/2025 [id number] / / [id number] documented as of this encounter Care Teams Press Operator Heavy Duty Relationship Specialty Start Date End Date Stephany Gilbert CRNP [address] [place] [address] [place] [address] PCP - General Nurse Practitioner 02/02/23 documented as of this encounter
--- OUTSIDE RECORDS SUMMARY | 2025-02-26 17:13 | External Medical Summary | Summary of Care ---
Author Name Unknown Organization [facility] Address [address] [facility] [place] [address] Phone [phone] Care Team Providers Care Plaque Maker Name Role Phone VladimirAnnabelleStephanyastrid ELLIOTT Primary Care Provider Reason for Visit * Reason Onset Date Comments Test Results Lab 12/31/2024 Precert Future 12/31/2024 Sravanthi gandara Encounter Details Date Type Department Care Team (Late st Contact Info) Description 12/31/2024 Telephone Hematology/Oncology [facility] [address] [place] [phone] Logan [facility]ummer MD [facility] [address] Test Results Lab; Precert Future (Sravanthi... Allergies [...] and hematocrit - 7.8/26.3, Platelet count of 721932 -ANC 0.05. She is at high-risk for [...] Description 01/08/2025 7:30 AM EST Laboratory Laboratory [facility] [address] [place] [phone] Kaykay, Lab [facility] [place] [address] 01/08/2025 8:00 AM EST Office Visit Hematology/Oncology [facility] [place] [address] [place] [phone] Logan Plummer MD [address] [place] [address] 01/08/2025 8:30 AM EST Hem/Onc Treatment Hematology/Oncology Treatment, [place] [address] [place], [place] [phone] Kaykay, Chair 9 Hem Onc [facility] [place] [address] Scheduled Procedures Name Priority Associated Diagnoses Date/Ti [...] D LEVEL ONCE IN A LIFETIME-USE SMARTSET# 47658 Completed 10/25/2008 Pneumococcal Vaccine: 50+ Years Completed [...] this encounter Medical Devices Implanted Type Area Stallion Keeper Device Identifier Shelf Expiration Date Model / Serial / Lot Power Port 8fr Sngl Lumen Plas - [id number] Implanted:Qty : 1 on 12/05/2024 by Taco Sanchez MD at [facility] Left: Chest CR BARD : PERIPHERAL VASCULAR [id number] 07/14/2025 [id number] / / [id number] documented as of this encounter Care Teams Plaque Maker Relationship Specialty Start Date End Date Stephany Gilbert CRNP [address] [place] [address] [place] [address] PCP - General Nurse Practitioner 02/02/23 documented as of this encounter
--- OUTSIDE RECORDS SUMMARY | 2025-02-26 17:13 | External Medical Summary | Summary of Care ---
Author Name Unknown Organization [facility] Address [address] [facility] [place] [address] Phone [phone] Care Team Providers Care Produce Associate Name Role Phone Vladimir Stephany ELLIOTT Primary Care Provider Reason for Visit * Reason Onset Date Comments Test Results Lab 12/31/2024 Precert Future 12/31/2024 [facility] Encounter Details Date Type Department Care Team (Late st Contact Info) Description 12/31/2024 Telephone Hematology/Oncology [facility] [address] [place] [phone] Logan Plummer MD [facility] [address] Test Results Lab; Precert Future ([facility]) Allergies Active Allergy Reactions Criticality Noted Date [...] and hematocrit - 7.8/26.3, Platelet count of 062861 -ANC 0.05. She is at high-risk for [...] Description 01/08/2025 7:30 AM EST Laboratory Laboratory [facility] [address] [place] [phone] Kaykay Lab Scen[address] 200 [facility] [place], [place] [address] 01/08/2025 8:00 AM EST Office Visit Hematology/Oncology [facility] [place] [address] [place] [phone] Logan Plummer MD [address] [place] [address] 01/08/2025 8:30 AM EST Hem[facility] [address] [place] [phone] Kaykay, Chair 9 Hem Onc [facility] 200 [facility] [place] [address] Scheduled Procedures Name Priority Associated Diagnoses Date/Ti [...] D LEVEL ONCE IN A LIFETIME-USE SMARTSET# 28028 Completed 10/25/2008 Pneumococcal Vaccine: 50+ Years Completed [...] this encounter Medical Devices Implanted Type Area Mask Design Engineer Device Identifier Shelf Expiration Date Model / Serial / Lot Power Port 8fr Sngl Lumen Plas - [id number] Implanted:Qty : 1 on 12/05/2024 by Taco Sanchez MD at OR [facility] Left: Chest CR BARD : PERIPHERAL VASCULAR [id number] 07/14/2025 [id number] / / [id number] documented as of this encounter Care Teams Produce Associate Relationship Specialty Start Date End Date Stephany Gilbert CRNP [address] [place] [address] [place] [address] PCP - General Nurse Practitioner 02/02/23 documented as of this encounter
--- OUTSIDE RECORDS SUMMARY | 2025-02-26 17:13 | External Medical Summary | Summary of Care ---
Author Name Unknown Organization [facility] Address [address] [facility] [place] [address] Phone [phone] Care Team Providers Care Carpet Inspector Name Role Phone Stephany Gilbert Primary Care Provider Encounter Details Date Type Department Care Team (Late st Contact Info) Description 12/31/2024 Orders Only Hematology/Oncology [facility] [place] 200 [facility] [place] [phone] Logan Plummer MD 200 [facility] [place] [address] Chemotherapy-induced neutropenia (HCC)*; Diffuse large B-cell lymphoma of lymph nodes [...] on file documented as of this encounter Progress Notes * Logan Plummer MD - 12/31/2024 12:36 PM EST Blood workup done on 12/21/2024: -WBC 1100, Hemoglobin and hematocrit - 7.8/26.3, Platelet count of 458054 -ANC 0.05. She is at high-risk for [...] Description 01/08/2025 7:30 AM EST Laboratory Laboratory [facility] [address] [place] [phone] Kaykay Lab [address] [place] [address] 01/08/2025 8:00 AM EST Office Visit Hematology/Oncology [facility] [place] [address] [place] [phone] Logan Plummer MD 200 [facility] [place] [address] 01/08/2025 8:30 AM EST Hem[facility] [address] [facility] [address] [place] [phone] Kaykay, Chair 9 Hem Onc [place] [address] [place] [address] Scheduled Procedures Name Priority Associated Diagnoses Date/Ti [...] D LEVEL ONCE IN A LIFETIME-USE SMARTSET# 28524 Completed 10/25/2008 Pneumococcal Vaccine: 50+ Years Completed [...] this encounter Medical Devices Implanted Type Area Emt Dispatcher Device Identifier Shelf Expiration Date Model / Serial / Lot Power Port 8fr Sngl Lumen Plas - [id number] Implanted:Qty : 1 on 12/05/2024 by Taco Sanchez MD at OR [facility] Left: Chest CR BARD : PERIPHERAL VASCULAR [id number] 07/14/2025 [id number] / / [id number] documented as of this encounter Visit Diagnoses Diagnosis Chemotherapy-induced neutropenia (HCC)- Primary Drug induced neutropenia 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
--- OUTSIDE RECORDS SUMMARY | 2025-02-26 17:13 | External Medical Summary | Summary of Care ---
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 30 Tablet 5 5 Active Lidocaine-Prilo alba 2.5-2.5 % External [...] before bedtime. 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 ICD-10 update of inactive term documented as of this encounter (statuses as of 12/28/2024) Social History Tobacco Use Types Packs/Day Years [...] Telephone Encounter - Logan Plummer MD - 12/27/2024 5:10 PM EST E-prescribed acyclovir. * Telephone Encounter - Paulina Benites LPN - 12/27/2024 12:09 PM EST Fax received from [facility], requesting a new prescription of the Acyclovir 400 mg tabs for a 90-day supply with refills. Last filled on 12/04/2024, for 30-day supply. New script pended for approval. documented in this encounter Plan of Treatment Upcoming Encounters Date Type Department Care Team (Late st Contact Info) Description 12/31/2024 9:00 AM EST Hem/Onc Treatment Hematology/Oncology Treatment, [place] [address] [facility] [address] [place] [phone] Kaykay, Chair 5 Hem Onc [place] [address] [place] [address] 01/08/2025 7:30 AM EST Laboratory Laboratory [facility] [place] [phone] Geetha Mccracken [address] [facility] [place] [address] 01/08/2025 8:00 AM EST Office Visit Hematology/Oncology [facility] Kaykay [place] [address] [place] [phone] Logan Plummer MD [address] [place] [address] 01/08/2025 8:30 AM EST Hem/Onc Treatment Hematology/Oncology Treatment, [place] [address] [place], [place] [phone] Kaykay, Chair 9 Hem Onc [address] [place], [place] [address] Scheduled Procedures Name Priority Associated Diagnoses Date/Ti [...] D LEVEL ONCE IN A LIFETIME-USE SMARTSET# 19289 Completed 10/25/2008 Pneumococcal Vaccine: 50+ Years Completed [...] this encounter Medical Devices Implanted Type Area Product Lead Device Identifier Shelf Expiration Date Model / Serial / Lot Power Port 8fr Sngl Lumen Plas - [id number] Implanted:Qty : 1 on 12/05/2024 by Taco Sanchez MD at OR [facility] Left: Chest CR BARD : PERIPHERAL VASCULAR [id number] 07/14/2025 [id number] / / [id number] documented as of this encounter Visit Diagnoses Diagnosis 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
--- OUTSIDE RECORDS SUMMARY | 2025-02-26 17:13 | External Medical Summary | Summary of Care ---
Author Name Unknown Organization [facility] Address [address] [facility] [place] [address] Phone [phone] Care Team Providers Care High School Music Instructor Name Role Phone Stephany Gilbert Primary Care Provider Encounter Details Date Type Department Care Team (Late st Contact Info) Description 12/31/2024 Orders Only Hematology/Oncology [place] [facility]rack[facility] [place] 200 [facility] [place] [phone] Logan Plummer MD 200 [facility] [place] [address] Allergies Active Allergy Reactions Criticality Noted Date [...] Description 01/08/2025 7:30 AM EST Laboratory Laboratory [facility] [address] [place] [phone] Kaykay Lab [facility] 200 [facility] [place] [address] 01/08/2025 8:00 AM EST Office Visit Hematology/Oncology [facility] [place] [address] [place] [phone] Logan Plummer MD [address] [place] [address] 01/08/2025 8:30 AM EST Hem[facility] [address] [place] [phone] Kaykay, Chair 9 Hem Onc [facility] 200 [facility] [place] [address] Scheduled Procedures Name Priority Associated Diagnoses Date/Ti [...] D LEVEL ONCE IN A LIFETIME-USE SMARTSET# 28106 Completed 10/25/2008 Pneumococcal Vaccine: 50+ Years Completed [...] this encounter Medical Devices Implanted Type Area Retention Manager Device Identifier Shelf Expiration Date Model / Serial / Lot Power Port 8fr Sngl Lumen Plas - [id number] Implanted:Qty : 1 on 12/05/2024 by Taco Sanchez MD at OR [facility] Left: Chest CR BARD : PERIPHERAL VASCULAR [id number] 07/14/2025 [id number] / / [id number] documented as of this encounter Care Teams High School Music Instructor Relationship Specialty Start Date End Date Stephany Gilbert CRNP [address] [place] [address] [place] [address] PCP - General Nurse Practitioner 02/02/23 documented as of this encounter
--- OUTSIDE RECORDS SUMMARY | 2025-02-26 17:13 | External Medical Summary | Summary of Care ---
Author Name Unknown Organization [facility] Address [address] [facility] [place] [address] Phone [phone] Care Team Providers Care Senior Media Director Name Role Phone Stephany Gilbert Primary Care Provider Reason for Visit * Reason Comments IV Therapy Venofer infusion Encounter Details Date Type Department Care Team (Latest Contact Info) Description 12/31/2024 9:00 AM EST Hem/Onc Treatment Hematology/Oncology Treatment, [place] [address] [place] [address] Kaykay, Chair 5 Hem Onc [facility] 200 [place] [address] Other iron deficiency anemia*; Diffuse large B-cell [...] Description 01/08/2025 7:30 AM EST Laboratory Laboratory [facility] [address] [place] [phone] Park, Lab [facility] 200 [facility] [place] [address] 01/08/2025 8:00 AM EST Office Visit Hematology/Oncology [facility] [place] [address] [place] [phone] Logan Plummer MD [address] [place] [address] 01/08/2025 8:30 AM EST Hem/Onc Treatment Hematology/Oncology Treatment, [place] [address] [place] [phone] Kaykay, Chair 9 Hem Onc [facility] 200 [facility] [place] [address] Scheduled Procedures Name Priority Associated Diagnoses Date/Ti [...] D LEVEL ONCE IN A LIFETIME-USE SMARTSET# 43984 Completed 10/25/2008 Pneumococcal Vaccine: 50+ Years Completed [...] this encounter Medical Devices Implanted Type Area Willow Analyst Device Identifier Shelf Expiration Date Model / Serial / Lot Power Port 8fr Sngl Lumen Plas - [id number] Implanted:Qty : 1 on 12/05/2024 by Taco Sanchez MD at OR [facility] Left: Chest CR BARD : PERIPHERAL VASCULAR [id number] 07/14/2025 [id number] / / [id number] documented as of this encounter Procedures Procedure [...] 4.00 - 10.80 K/uL 12/31/2024 10:27 AM [facility] 56-02 Neutrophils % 4.0(L) 40.0 - 75.0 % 12/31/2024 10:27 AM [facility] 56-02 Lymphocytes % 28.0 18.0 - 42.0 % 12/31/2024 10:27 AM [facility] 56-02 Monocytes % 66.0(H) 1.0 - 11.0 % 12/31/2024 10:27 AM [facility] 56-02 Eosinophils % 2.0 0.0 - 6.0 % 12/31/2024 10:27 AM [facility] 56-02 Absolute Neutrophils 0.05(L) 1.80 - 7.70 K/uL 12/31/2024 10:27 AM [facility] 56-02 Absolute Lymphocytes 0.33(L) 1.00 - 4.80 K/uL 12/31/2024 10:27 AM [facility] 56-02 Absolute Monocytes 0.79 0.00 - 1.10 K/uL 12/31/2024 10:27 AM [facility] 56-02 Absolute Eosinophils 0.02 0.00 - 0.70 K/uL 12/31/2024 10:27 AM [facility] 56-02 nRBCs 12/31/2024 10:27 AM [facility] 56-02 Reactive Lymphocytes Present(A ) None Seen 12/31/2024 10:27 AM [facility] 56-02 Giant PLTs Present(A ) None Seen 12/31/2024 10:27 AM [facility] 56-02 Blood Venous blood specimen / Unknown Central Line / Unknown 12/31/2024 9:10 AM EST 12/31/2024 9:38 AM EST us Logan Plummer MD LAB BLOOD ORDERABLES Final Res ult [facility] 56-[address] [place] [address] * DIFFERENTIAL, AUTOMATED (12/31/2024 9:10 AM EST) Blood Venous blood specimen / Unknown Central Line / Unknown 12/31/2024 9:10 AM EST 12/31/2024 9:38 AM EST us Logan Plummer MD LAB BLOOD ORDERABLES Final Res ult [facility] 56 [address] [place] [address] * (ABNORMAL) CBC (12/31/2024 9:10 AM EST) WBC 1.19(L) 4.00 - 10.80 K/uL 12/31/2024 10:27 AM EST [facility] 56- RBC 2.86 3.85 - 5.15 M/uL 12/31/2024 10:27 AM [facility] 56- HGB 7.8(L) 12.0 - 15.3 g/dL 12/31/2024 10:27 AM [facility] 56- HCT 26.3(L) 36.0 - 45.2 % 12/31/2024 10:27 AM [facility] 56- MCV 92.0 81.5 - 97.5 fL 12/31/2024 10:27 AM [facility] 56- MCH 27.3 27.0 - 34.0 pg 12/31/2024 10:27 AM [facility] 56-02 MCHC 29.7 32.0 - 36.0 g/dL 12/31/2024 10:27 AM [facility] 56-02 RDW 18.7 11.5 - 15.5 % 12/31/2024 10:27 AM [facility] 56-02 PLT 201 140 - 400 K/uL 12/31/2024 10:27 AM [facility] 56-02 MPV 9.3 6.6 - 11.1 fL 12/31/2024 10:27 AM [facility] 56-02 Blood Venous blood specimen / Unknown Central Line / Unknown 12/31/2024 9:10 AM EST 12/31/2024 9:38 AM EST us Logan Plummer MD LAB BLOOD ORDERABLES Final Res ult [facility] [address] [place] [id number] documented in this encounter Visit Diagnoses Diagnosis [...] documented in this encounter Care Teams Senior Media Director Relationship Specialty Start Date End Date Stephany Gilbert CRNP [address] [facility] [place] [address] PCP - General Nurse Practitioner 02/02/23 documented as of this encounter
[2025-02-26] MEDS: CEFEPIME 2000MG 2,000 MG/20 ML SYR IV SCH (19:31)
[2025-02-26] MEDS: traZODone HCL 50 MG TAB PO PRN (21:26)
[2025-02-26] MEDS: BACLOFEN 10 MG TAB PO SCH (21:27)
[2025-02-26] MEDS: HEPARIN SOD 5,000 UNIT/0.5 ML VIAL SQ SCH (21:28)
[2025-02-26] MEDS: METOPROLOL TARTRATE 25 MG TAB PO SCH (21:29)
[2025-02-26] MEDS: PANTOprazole 40 MG TAB PO SCH (21:29)
[2025-02-26] MEDS: ROSUVASTATIN CALCIUM 10 MG TAB PO SCH (21:29)
[2025-02-26] MEDS: DOXYCYCLINE HYCLATE 100 MG in DEXTROSE 5% MINI-B 100 ML IV SCH (21:30)
[2025-02-27] MEDS: VANCOMYCIN HCL 1,000 MG/270 ML BAG IV SCH (00:28)
[2025-02-27] MEDS: MELATONIN 3 MG TAB PO PRN (01:10)
--- OUTSIDE RECORDS SUMMARY | 2025-02-27 02:23 | External Medical Summary | Summary of Care ---
Author Name Unknown Organization [facility] Address [address] [facility] [place] [address] Phone [phone] Care Team Providers Care Family Protection Specialist Name Role Phone Stephany Gilbert Primary Care Provider Reason for Visit * Reason Comments Re-Check Labs Encounter Details Date Type Department Care Team (Late st Contact Info) Description 02/26/2025 9:00 AM EDT Nurse Only Hematology/Oncology [facility] Kaykay [place] [address] [place] [phone] Park, Nurse Hem Onc [facility] [address] [place] [address] Re-Check (Labs) Allergies Active Allergy Reactions Criticality Noted Date [...] as of this encounter Progress Notes * Saul Ramos, RN - 02/26/2025 9:18 AM EDT Pt Hgb 8.[address] Plummer - give Levaquin prophylactic for neutropenia. 20mEq K today. This RN spoke with patient regarding this and is aware of black box warning with Levaquin, take antibiotic with some food and plenty of water. Upon further evaluation, pt resting HR 100-110. SP02 92%. Pt states at home she has been feeling more short of breath when ambulating. Denies falling. HR has been between 130-140 on her home monitor.She states she has been eating and drinking ok. Developed chills yesterday and "I wasn't able to get warm." Dr. Plummer to see patient in the treatment room. documented in this encounter Plan of Treatment Upcoming Encounters Date Type Department Care Team (Late st Contact Info) Description 03/05/2025 8:00 AM EDT Nurse Only Hematology/Oncology Treatment, [address] [place] [phone] Kaykay, Chair 9 Hem Onc [facility] [address] [place] [address] [place] [address] 03/05/2025 9:00 AM EDT Nurse Only Hematology/Oncology [facility] [place] [place] [phone] Kaykay, Nurse Hem Onc [facility] 200 [facility] [place] [address] 03/12/2025 12:00 PM EDT Nurse Only Hematology/Oncology Treatment, [address] [place] [phone] Kaykay, Chair 4 Hem Onc [facility] 200 [facility] [place] [address] 03/12/2025 12:30 PM EDT Office Visit Hematology/Oncology [facility] [place] [address] [place] [phone] Logan Plummer MD [address] [place] [address] 03/12/2025 1:00 PM EDT Hem/Onc Treatment Hematology/Oncology Treatment, [place] [address] [place] [phone] [place], Chair 4 Hem Onc [place] [address] [place] [address] Scheduled Procedures Name Priority Associated Diagnoses Date/Ti [...] D LEVEL ONCE IN A LIFETIME-USE SMARTSET# 92027 Completed 10/25/2008 Pneumococcal Vaccine: 50+ Years Completed [...] this encounter Medical Devices Implanted Type Area Bisque Brusher Device Identifier Shelf Expiration Date Model / Serial / Lot Power Port 8fr Sngl Lumen Plas - [id number] Implanted:Qty : 1 on 12/05/2024 by Taco Sanchez MD at [facility] Left: Chest CR BARD : PERIPHERAL VASCULAR [id number] 07/14/2025 [id number] / / [id number] documented as of this encounter Care Teams Family Protection Specialist Relationship Specialty Start Date End Date Stephany Gilbert CRNP [address] [place] [address] [place] [address] PCP - General Nurse Practitioner 02/02/23 documented as of this encounter
--- OUTSIDE RECORDS SUMMARY | 2025-02-27 02:23 | External Medical Summary | Summary of Care ---
Author Name Unknown Organization [facility] Address [address] [facility] [place] [address] Phone [phone] Care Team Providers Care Grader Marker Name Role Phone Stephany Gilbert Primary Care Provider Reason for Visit * Reason Comments Procedure Labs from port Encounter Details Date Type Department Care Team (Late st Contact Info) Description 02/26/2025 8:00 AM EDT Nurse Only Hematology/Oncology Treatment, [place] [address] [facility] [place] [phone] Park, Chair 5 Hem Onc [facility] 200 [place] [address] Procedure (Labs from port) Allergies Active Allergy [...] 8:00 AM EDT Nurse Only Hematology/Oncology Treatment, [address], [place] [address] Kay[place], Chair 9 Hem Onc [place] 200 [facility] [place] [address] 03/05/2025 9:00 AM EDT Nurse Only Hematology/Oncology Sc[place]ery [place] [address] [place] [address] Park, Nurse Hem Onc Scenery 200 [facility] [place] [address] 03/12/2025 12:00 PM EDT Nurse Only Hematology/Oncology Treatment, [address], [place] [address] Kaykay, Chair 4 Hem Onc Scenery 200 [place] [address] 03/12/2025 12:30 PM EDT Office Visit Hematology/Oncology [facility] [place] [address] [facility] [place], [place] [phone] Logan Plummer MD 200 [facility] [place], [place] [address] 03/12/2025 1:00 PM EDT Hem/Onc Treatment Hematology/Oncology Treatment, [address], [place] [address] Kaykay, Chair 4 Hem Onc Scenery [address] [place] [address] Scheduled Procedures Name Priority Associated Diagnoses Date/Ti [...] D LEVEL ONCE IN A LIFETIME-USE SMARTSET# 27105 Completed 10/25/2008 Pneumococcal Vaccine: 50+ Years Completed [...] this encounter Medical Devices Implanted Type Area Inspector Filters Device Identifier Shelf Expiration Date Model / Serial / Lot Power Port 8fr Sngl Lumen Plas - [id number] Implanted:Qty : 1 on 12/05/2024 by Taco Sanchez MD at OR [facility] Left: Chest CR BARD : PERIPHERAL VASCULAR [id number] 07/14/2025 [id number] / / [id number] documented as of this encounter Procedures Procedure [...] DIFFERENTIAL, TECHNOLOGIST REVIEW (02/26/2025 7:55 AM EDT) NRBCs 02/26/2025 8:40 AM EDT [facility] 56-02 Elliptocytes Moderate(A ) None Seen 02/26/2025 8:40 AM EDT [facility] 56-02 Blood Venous blood specimen / Unknown Central Line / Unknown 02/26/2025 7:55 AM EDT 02/26/2025 8:17 AM EDT us Logan Plummer MD LAB BLOOD ORDERABLES Final Res ult [facility] [address]- [address] [place] [address] * DIFFERENTIAL, AUTOMATED (02/26/2025 7:55 AM EDT) Blood Venous blood specimen / Unknown Central Line / Unknown 02/26/2025 7:55 AM EDT 02/26/2025 8:17 AM EDT Narrative [facility] 56-02 - 02/26/2025 8:40 AM EDT WBC < 0.60, WBC differential cancelled. Please call Client Services if differential is required. us Logan Plummer MD LAB BLOOD ORDERABLES Final Res ult [facility] [address] [place] [address] * (ABNORMAL) CBC (02/26/2025 7:55 AM EDT) WBC 0.58(LL) 4.00 - 10.80 K/uL 02/26/2025 8:40 AM EDT [facility] 56 Comment:Results rechecked. RBC 2.71 3.85 - 5.15 M/uL 02/26/2025 8:40 AM EDT [facility] 56- HGB 8.0(L) 12.0 - 15.3 g/dL 02/26/2025 8:40 AM EDT [facility] 56 HCT 25.5(L) 36.0 - 45.2 % 02/26/2025 8:40 AM EDT [facility] 56 MCV 94.1 81.5 - 97.5 fL 02/26/2025 8:40 AM EDT [facility] 56- MCH 29.5 27.0 - 34.0 pg 02/26/2025 8:40 AM EDT [facility] 56 MCHC 31.4 32.0 - 36.0 g/dL 02/26/2025 8:40 AM EDT [facility] 56 RDW 18.8 11.5 - 15.5 % 02/26/2025 8:40 AM EDT [facility] 56 PLT 204 140 - 400 K/uL 02/26/2025 8:40 AM EDT [facility] 56 MPV 9.8 6.6 - 11.1 fL 02/26/2025 8:40 AM EDT [facility] 56 Blood Venous blood specimen / Unknown Central Line / Unknown 02/26/2025 7:55 AM EDT 02/26/2025 8:17 AM EDT us Logan Plummer MD LAB BLOOD ORDERABLES Final Res ult [facility] [address] [place], [place] [id number] * (ABNORMAL) COMPREHENSIVE METABOLIC PANEL (02/26/2025 7:55 AM EDT) BUN 13 6 - 20 mg/dL 02/26/2025 8:37 [address] EDT [address] CREATININE 0.5 0.5 - 1.0 mg/dL 02/26/2025 8:37 [address] EDT [address] EGFR >90 >=60 mL/min 02/26/2025 8:37 AM T [facility] 56 Comment:eGFR is calculated b ased on the CKD-EPI 2020 equation. SODIUM 135 135 - 146 mmol/L 02/26/2025 8:37 AM T [facility] 56 POTASSIUM 3.1(L) 3.5 - 5.1 mmol/L 02/26/2025 8:37 AM EDT [facility] 56- CHLORIDE 98 98 - 107 mmol/L 02/26/2025 8:37 AM EDT [facility] 56 CO2 23 22 - 32 mmol/L 02/26/2025 8:37 AM EDT [facility] 56 ANION GAP 14 7 - 15 mmol/L 02/26/2025 8:37 AM EDT [facility] 56 GLUCOSE 115 70 - 120 mg/dL 02/26/2025 8:37 AM EDT [facility] 56 Albumin 3.2(L) 3.8 - 5.0 g/dL 02/26/2025 8:37 AM EDT [facility] 56 AST 23 10 - 35 U/L 02/26/2025 8:37 AM EDT [facility] 56 Alkaline Phosphatase 96 35 - 130 U/L 02/26/2025 8:37 AM EDT [facility] 56 Bilirubin, Total 0.6 <=1.2 mg/dL 02/26/2025 8:37 AM EDT [facility] 56 CALCIUM 8.9 8.4 - 10.2 mg/dL 02/26/2025 8:37 AM EDT [facility] 56 Protein 6.2 6.0 - 8.3 g/dL 02/26/2025 8:37 AM EDT [address] ALT 13 10 - 35 U/L 02/26/2025 8:37 AM EDT [facility] 56 Blood Venous blood specimen / Unknown Central Line / Unknown 02/26/2025 7:55 AM EDT 02/26/2025 8:17 AM EDT Logan Plummer MD LAB BLOOD ORDERABLES Final Res ult [facility] 56 [address] [place] [address] * MAGNESIUM (02/26/2025 7:55 AM EDT) Magnesium 1.6 1.5 - 2.6 mg/dL 02/26/2025 8:37 AM EDT [place] [address] Blood Venous blood specimen / Unknown Central Line / Unknown 02/26/2025 7:55 AM EDT 02/26/2025 8:17 AM EDT Logan Plummer MD LAB BLOOD ORDERABLES Final Res ult [facility] 56 [address] [place] [address] documented in this encounter Visit Diagnoses Diagnosis [...] mL documented in this encounter Care Teams Grader Marker Relationship Specialty Start Date End Date Stephany Gilbert CRNP [address] [place] [address] [place] [address] PCP - General Nurse Practitioner 02/02/23 documented as of this encounter
[2025-02-27] MEDS: LEVOTHYROXINE SODIUM 25 MCG TABLET PO SCH (05:52)
[2025-02-27 07:00] LABS: Troponin I High Sensitivity 28.1 pg/ml (0-14)
[2025-02-27 07:09] LABS: Hematocrit (blood only) 22.4 % (37.0-47.0); Hemoglobin 7.5 g/dl (12.0-16.0); Mean Corpuscular Hemoglobin 29.3 pg (25.0-34.0); Mean Corpuscular Hgb Conc 33.5 g/dL (32.0-36.0); Mean Corpuscular Volume 87.5 fL (80.0-100.0); Mean Platelet Volume 9.6 fL (9.4-12.4); Nucleated RBC # (auto) 0.04 K/uL (0.00-0.12); Nucleated RBC % (auto) 3.8 %; Platelet Count 164 K/uL (130-400); RDW Standard Deviation 58.1 fL (36.4-46.3); Red Blood Count 2.56 M/uL (4.20-5.40); White Blood Count 1.06 K/ul (4.8-10.8)
[2025-02-27 07:33] LABS: Calcium 7.8 mg/dl (8.6-10.3); Magnesium 1.8 mg/dl (1.7-2.4)
[2025-02-27 07:39] LABS: BUN Creatinine Ratio 12.5 (10-20); Creatinine Clr Calc Pharmacy 93.9 ml/min
[2025-02-27 07:51] LABS: Basophils # (auto) 0.01 K/uL (0.00-0.20); Basophils % (auto) 0.9 %; Eosinophils # (auto) 0.13 K/uL (0.00-0.50); Eosinophils % (auto) 12.3 %; Immature Granulocytes % (auto) 9.4 %; Lymphocytes # (auto) 0.25 K/uL (1.20-3.40); Lymphocytes % (auto) 23.6 %; Monocytes # (auto) 0.38 K/uL (0.11-0.59); Monocytes % (auto) 35.8 %; Neutrophils # (auto) 0.19 K/uL (1.40-6.50)
[2025-02-27] MEDS: POTASSIUM CHLORIDE / WTR 10 MEQ/100 ML PLCT IV SCH (08:47)
[2025-02-27] MEDS: BACLOFEN 10 MG TAB PO SCH (08:55)
[2025-02-27] MEDS: CHOLECALCIFEROL 25 MCG (1000 UNITS) TAB PO SCH (08:55)
[2025-02-27] MEDS: CYANOCOBALAMIN (B-12) 500 MCG TABLET PO SCH (08:56)
[2025-02-27] MEDS: CALCIUM CARBONATE 1250MG TAB PO SCH (08:56)
[2025-02-27] MEDS: DULoxetine HCL 30 MG CAP PO SCH (08:57)
[2025-02-27] MEDS: allopurinoL 300 MG TAB PO SCH (08:57)
[2025-02-27] MEDS: FLUOCINONIDE 0.05% OINT 15 GM TUBE EXT SCH (08:58)
--- NOTE | 2025-02-27 10:23 | Electrocardiogram Report ---
Test Reason : Blood Pressure : */* mmHG Vent. Rate : 104 BPM Atrial Rate : 104 BPM P-R Int : 166 ms QRS Dur : 100 ms QT Int : 338 ms P-R-T Axes : 39 -22 107 degrees QTcB Int : 444 ms Sinus tachycardia Left ventricular hypertrophy with repolarization abnormality Poor R wave progression, consider anterior [place] vs. lead placement vs. LVH Abnormal ECG When compared with ECG of 12-Dec-2024 04:28, Vent. rate has decreased by [address] less elevated in Anterior leads Confirmed by Ayo Ybarra ([id number]) on 02/27/2025 10:23:23 AM Referred By: REFERRED SELF Confirmed By: Ayo Ybarra
--- NOTE | 2025-02-27 10:33 | Hospitalist Progress Note ---
Date of Service February 27, 2025 Assessment & Plan (1) RLL pneumonia: Plan: At risk of gram negative etiology in the setting of hospital admission 2 months ago, severe neutropenia from chemotherapy, etc. * thus, continue cefepime 2 gm IV q8h * add doxy 100mg BID for atypical coverage * MRSA swab returned negative; however, IV vanco will be ordered mainly to cover her A-port until blood cultures are final * NC O2 to keep sats 90% or greater * supportive care, albuterol prn, etc. * Anticipate 5days of IV abx (2) Neutropenic fever: Plan: source - RLL pneumonia * she also has been having chronic fevers/nightsweats in the setting of her diffuse large B-cell lymphoma for months * see above re: IV antibiotics * she does have A-port - IV vancomycin ordered to cover the port until blood cultures return * follow blood/urine cx's * cefepime/doxy for RLL pneumonia (3) Sepsis: Plan: 2nd RLL pneumonia * s/p IV fluid boluses/additional fluids given in ER * lactate wnl * creatinine stable * follow blood/urine cx's * antibiotics as discussed above (4) Chemotherapy induced neutropenia: Plan: daily CBC w/ diff while hospitalized * neutropenic precautions * s/p Neulasta around the time of her last chemotherapy cycle on 02/20/25 * I corresponded with Dr Logan Plummer her oncologist confirming that indeed she had received Neulasta * he does not recommend additional Neupogen at this time * IV antibiotics as noted above (5) Acute respiratory failure with hypoxia: Plan: documented O2 sats of 87% upon presentation today, and lower 80s at home * documented RR of 26 upon presentation today * resp failure 2nd to RLL pneumonia in setting of known ILD * provide supplemental o2 to keep sats 90% or greater, but sats in low 90s are likely acceptable given her chronic ILD (6) Diffuse large B cell lymphoma: Plan: follows with Dr Logan Plummer, [facility] Oncology office * s/p chemotherapy on 02/20/25 along with Neulasta * just had PET[facility]CT at [facility] on 02/11/25 showing treatment response per office notes (I cannot find the actual PET-CT report in her chart, however) * 6 cycles of chemotherapy were planned for her disease * now with RLL pneumonia, neutropenia, anemia, etc as above (7) Hyponatremia: Plan: chronic, dating back to fall 2023 * baseline ~130 * Na level today - 129 * daily BMP while here (8) Hypomagnesemia: (9) Hypothyroidism: (10) GERD without esophagitis: (11) Dyslipidemia: (12) CREST (calcinosis, Raynaud's phenomenon, esophageal dysfunction, sclerodactyly, telangiectasia): Plan: No issues at this time (13) ILD (interstitial lung disease): Plan: known history of PF/ILD * previously was on Cellcept for such; this was d/c when she was getting ready to initiate Rx for her lymphoma * some of her CXR findings are likely ILD-related with superimposed RLL pneumonia * passed 2-step in December, but would get another prior to discharge from this hospitalization * defer on systemic steroids at this time (14) Hypokalemia: Plan: replacement given in ER * repeat BMP (15) Anemia: Plan: transfused 1 unit irradiated PRBC Plan 74yo female with diffuse large B-cell lymphoma - s/p initiation of 6 treatment cycles on 12/18/24 consisting of prednisone/rituximab/cytoxan/brentuximab (last treatment on 02/20/25) - along with ILD (previously on cellcept), CREST syndrome, GERD, hypothyroidism, iron deficiency anemia, GAVE, and hyponatremia. Presents with three 3 days of feeling poorly including weakness, fevers, chills, shortness of breath, and slight cough. Upon presentation has severe neutropenia, anemia, and evidence of RLL pneumonia. Likely sepsis as well. Admission and Anticipated Discharge Date Admission Date: February 26, 2025 Subjective No events overnight. Pt resting comfortably in chair. Review of Systems Review of Systems: CONST: Negative for fever, body aches and chills. HENT: Negative for neck pain/stiffness, headache, congestion, sore throat, swelling. EYES: Negative for discharge/pain or vision changes. RESP: Negative for cough/hemoptysis and shortness of breath. CV: Negative chest pain, difficulty breathing, palpitations. ABD: Negative pain, nausea, vomiting. : Negative increase frequency, dysuria, blood in urine or stool. MUSC: Negative for muscle aches, edema. SKIN: Negative rash, lesions/sores. NEURO: Negative headache, dizziness, weakness. Physical Exam Physical Exam: GENERAL APPEARANCE NAD, activity normal for age, well developed/ well nourished, no cyanosis, pallor, or diaphoresis. EYES lids/conjunctiva normal. EARS/NOSE/THROAT Mucous membranes moist, nares normal, lips/teeth normal uvula midline without oral pharyngeal erythema, exudate or swelling TMs normal bilaterally. No lymphangitis/lymphedema. HEAD/NECK normocephalic atraumatic, no facial trauma, neck is supple. RESPIRATORY respiratory effort normal, speaks in full sentences, no tripod position, no accessory muscle use. Lungs clear to auscultation without rhonchi, wheezes, rales CARDIAC Regular rate and rhythm, no edema. ABDOMINAL Soft, ND/NT. No evidence of fluid wave. No pulsatile masses on exam, rebound tenderness, Pompa sign or pain over Mcburney's point. MUSCLES/EXTREMITIES No abnormal range of motion, no swelling. SKIN Warm, pink and dry. No rashes, dermatoses, petechiae or lesions. NEUROLOGICAL Speech is clear and appropriate. Normal level of consciousness. Gait and coordination are normal. 5/5 strength in all extremities. PSYCH Normal mood and affect. Judgement/competence is appropriate Results & Data Results & Data Vital Signs (Past 12 Hours) Vital Signs Temp Pulse Pulse Resp BP Pulse Ox O2 Del Method 02/27/25 09:00 102 H 02/27/25 09:00 Nasal Cannula 02/27/25 07:50 37.4 C 98 H 18 117/60 92 Room Air 02/27/25 03:43 38.0 C H 91 H 18 135/68 91 Room Air 02/26/25 23:11 37.0 C 95 H 18 129/64 90 Room Air 02/26/25 23:00 96 H O2 Flow Rate 02/27/25 09:00 02/27/25 09:00 2 02/27/25 07:50 02/27/25 03:43 02/26/25 23:11 02/26/25 23:00 PG Care Time/CCT Total # of Minutes Spent Total Time Spent with Patient: Total time spent is greater than 50% in coordination of care (as documented) at patient's floor/unit and/or counseling patient: Coding Level of Care Code 73801 SUB INP/OBS CARE 2/35MIN Diagnoses RLL pneumonia J18.9 Neutropenic fever D70.9; R50.81 Sepsis A41.9 Chemotherapy induced neutropenia D70.1; T45.1X5A Acute respiratory failure with hypoxia J96.01 Diffuse large B cell lymphoma C83.30 Hyponatremia E87.1 Hypomagnesemia E83.42 Hypothyroidism E03.9 GERD without esophagitis K21.9 Dyslipidemia E78.5 CREST (calcinosis, Raynaud's phenomenon, esophageal dysfunction, sclerodactyly, telangiectasia) M34.1 ILD (interstitial lung disease) J84.9 Hypokalemia E87.6 Anemia D64.9 Anemia type: unspecified type (15) Anemia Anemia type: unspecified type Qualified Code(s): D64.9 - Anemia, unspecified
--- NOTE | 2025-02-27 11:30 | Infectious Disease Consult ---
Date of Consultation February 27, 2025 Assessment & Plan (1) RLL pneumonia: (2) Neutropenic fever: (3) History of B-cell lymphoma: Plan 74yo F with h/o DLBCL on chemo (previously tx with EPOCH-R 2013, now on brentuximab, Cytoxan, rituximab, prednisone since 12/18/24; last chemo 02/19 with neulasta), chest port, ILD on cellcept, breast cancer 1988 s/p chemo/XRT, systemic sclerosis, CREST, GAVE, Raynauds phenomenon who presented on 02/26 with fevers, weakness, SOB and feeling unwell since 02/24. On admission, she was febrile to 38.4, O2 sat 87% and was placed on 2L NC, BP stable. Initial labs with WBC 0.59 (ANC 40), Cr 0.50, AST/ALT wnl. Trop elevated. PCT 0.93. UA with 0-5 WBC. RPP negative. CXR with early PNA in right lung base. She has been started on broad empiric abx. ID consulted 02/27. Agree with broad abx until further cultures results are available. I will also send urine legionella. She isnt making any sputum, but if she does bring up phlegm or develops a cough, then would send sputum cx. Port site looks ok. No reported GI symptoms but per chart had diarrhea yesterday. # Pneumonia # Neutropenic fever # h/o DLBCL on chemo via port - Jackie ordered urine legionella Ag and sputum cx - continue cefepime 2g IV q8h - continue vancomycin pharmacy dosed protocol stop if no MRSA on blood cx - Jackie changed doxycycline to azithromycin 500mg PO daily Will continue to follow. If questions or concerns, contact via [employer] or Infectious Disease Call Center . Melissa Vernon MD [facility], Division of Infectious Diseases Consultation Information Consultation was provided via telemedicine using two-way real-time interactive telecommunication between the patient and the telemedicine provider. For the duration of the visit, the provider was performing the assessment from a different facility than the patient. This includesuse of bluetooth stethoscope forauscultationperformed by the telepresenter that the telemedicine provider can hear if described in the physical exam. [employer] contact information: Please call [facility] Call Center . (Phone Number For Physician Use Only) After establishing a telemedicine visit, patient was: Patient was verified with two unique identifiers, Patient/authorized rep acknowledged consent and understanding and Gave permission to continue telehealth session Time Spent with Patient: Initial => 75 min History of Present Illness Reason for Consultation: PNA with neutropenia Attending Physician: Jose Hester MD History of Present Illness 74yo F with h/o DLBCL on chemo (previously tx with EPOCH-R 2013, now on brentuximab, Cytoxan, rituximab, prednisone since 12/18/24; last chemo 02/19 with neulasta), chest port, ILD on cellcept, breast cancer 1987 s/p chemo/XRT, systemic sclerosis, CREST, GAVE, Raynauds phenomenon who presented on 02/26 with fevers, weakness, SOB and feeling unwell. She was noted to be more dyspneic after her last chemo, then developed fevers on 02/24 with chills, generalized weakness, and worsening SOB. 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 On admission, she was febrile to 38.4, O2 sat 87% and was placed on 2L NC, BP stable. Initial labs with WBC 0.59 (ANC 40), Cr 0.50, AST/ALT wnl. Trop elevated. PCT 0.93. UA with 0-5 WBC. RPP negative. CXR with early PNA in right lung base. She has been started on broad empiric abx. ID consulted 02/27. On evaluation, patient reports feeling unwell on Tuesday with chills and occasional SOB. No chest pain. She does not have a cough or sputum production, but has rhinorrhea. No sore throat. She has not traveled out of state in a very long time. No international travel. No sick contacts. Denies abdominal pain, vomiting, or diarrhea. Allergies Allergy/AdvReac Type Severity Reaction Status Date / Time nickel AdvReac Severe RASH- Verified 12/26/24 14:13 HANDS AND OTHER AREAS BREAK OUT Home Medications Medication Instructions Recorded Confirmed Type calcium carbonate 600 mg PO QAM 01/06/20 02/26/25 History cyanocobalamin (vitamin B-12) 1,000 mcg PO .tuesday12/22/22 02/26/25 History 1,000 mcg tablet ascorbic acid (vitamin C) 1,000 mg 1 g PO QAM 08/08/24 02/26/25 History tablet (Vitamin C) cholecalciferol (vitamin D3) 25 25 mcg PO QAM 08/08/24 02/26/25 History mcg (1,000 unit) tablet (Vitamin D3) levothyroxine 25 mcg tablet 25 mcg PO DAILYBB 08/08/24 02/26/25 History mycophenolate mofetil 500 mg 1,000 mg PO .ON HOLD 08/08/24 02/26/25 History tablet (CellCept) omega-3 fatty acids 500 mg capsule 500 mg PO QAM 08/08/24 02/26/25 History rosuvastatin 10 mg tablet 10 mg PO HS 08/08/24 02/26/25 History allopurinol 300 mg tablet 300 mg PO DAILY 10/31/24 02/26/25 History pantoprazole 40 mg tablet,delayed 40 mg PO BID #180 tabs 11/19/24 02/26/25 Rx release furosemide 40 mg tablet (Lasix) 40 mg PO DAILY PRN 12/17/24 02/26/25 Rx post-transfusion or edema/swelling #20 tabs metoprolol tartrate 50 mg tablet 50 mg PO BID #60 tabs 12/17/24 02/26/25 Rx duloxetine 30 mg capsule,delayed 30 mg PO DAILY #90 caps 01/02/25 02/26/25 Rx release trazodone 50 mg tablet See Rx Instructions PO HS PRN 01/23/25 02/26/25 Rx insomnia #60 tabs benzonatate 100 mg capsule 100 - 200 mg (1 - 2 x 100 mg) PO 02/15/25 02/26/25 Rx TID PRN cough #30 caps albuterol sulfate 90 mcg/actuation 2 puff inhalation UD PRN Shortness 02/26/25 02/26/25 History aerosol inhaler Of Breath Or Wheezing baclofen 10 mg tablet 10 mg PO UD 02/26/25 02/26/25 History desoximetasone 0.25 % topical 1 applic topical UD 02/26/25 02/26/25 History ointment levofloxacin 500 mg tablet 500 mg PO DAILY 02/26/25 02/26/25 History potassium chloride 10 mEq 10 meq PO UD PRN only when you 02/26/25 02/26/25 History tablet,extended release take furosemide Patient History Medical History (Updated 02/27/25 @ 05:37 by Ricky Chavez MD) Port-A-Cath in place Diffuse large B cell lymphoma TACO (transfusion associated circulatory overload) during 12/2024 hospitalization Right-sided carotid artery occlusion without cerebral infarction 80% right common carotid artery occlusion per CTA 08/2024 Ex-smoker ILD (interstitial lung disease) Personal history of breast cancer right CREST (calcinosis, Raynaud's phenomenon, esophageal dysfunction, sclerodactyly, telangiectasia) GERD without esophagitis Hypothyroidism Impaired fasting glucose Iron deficiency anemia Osteopenia Acute respiratory failure with hypoxia and hypercapnia Gastric antral vascular ectasia SBO (small bowel obstruction) Surgical History History of reconstruction of right breast History of colonoscopy History of subtotal mastectomy of right breast Family History Father Myocardial infarction Sister Breast cancer Ovarian cancer Brother Colon cancer Diabetes Prostate cancer Colorectal cancer Mother Coronary heart disease Diabetes Social History (Updated 02/26/25 @ 21:25 by Ricky Chavez MD) Smoking Status: Former smoker Tobacco Type: Cigarettes Age Started Using Tobacco: 29; Age Quit Using Tobacco: 39; packs per day: 0.25; Cigarettes Per Day: 1-1 1/2 PPD; Second Hand Exposure: No; Do You Dip or Chew Tobacco: No; Hx Alcohol Use: No Hx Substance Use: No Preferred Language: Austrian Communication Ability: Effective Visual Impairment: No Limitations Hearing Ability: Normal 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: No Beliefs That Will Affect Care: None marital status: Current Living Situation: Spouse Current Living Situation Comment: lives with in [place] current occupational status: retired How many Children do You have: 0 How many Children do You have Comment: does not have biological children; 2 step-children Other Information That Helps Us Care for You: No Feels Safe at Home: Yes Safety Concerns: Feels Safe At This Time Childhood Exposure to Second-Hand Smoke: Yes Diet: regular caffeine: No Dental Care, Regularly: Yes Physical Activity Frequency: Daily Seatbelt Use: always Sunscreen Use: Yes Assistive Devices: Denture - Upper, Denture - Lower, Glasses and Walker Assistive Devices Comment: dentures/walker Review of System 10-point review of systems reviewed and are negative except for as above. Physical Exam Physical Exam: General: Awake, alert, no acute distress HEENT: NC/AT, EOMI, mmm Neck: supple Lungs: crackles in right lower lung Heart: nl S1/S2, no appreciable murmurs Chest: port site without erythema or tenderness Abdomen: soft, NT/ND Ext: no LE edema Skin: no rash Neuro: moving all extremities Results & Data Vital Signs (Past 12 Hours) Vital Signs Temp Pulse Pulse Resp BP Pulse Ox O2 Del Method 02/27/25 10:57 37.0 C 103 H 20 116/70 93 Nasal Cannula 02/27/25 09:00 102 H 02/27/25 09:00 Nasal Cannula 02/27/25 07:50 37.4 C 98 H 18 117/60 92 Room Air 02/27/25 03:43 38.0 C H 91 H 18 135/68 91 Room Air O2 Flow Rate 02/27/25 10:57 2 02/27/25 09:00 02/27/25 09:00 2 02/27/25 07:50 02/27/25 03:43 Laboratory Results Labs reviewed. Diagnostic Findings Imaging reviewed.
[2025-02-27] MEDS: AZITHROMYCIN 250 MG TAB PO SCH (12:42)
[2025-02-28 08:09] LABS: Creatinine Clr Calc Pharmacy 100.2 ml/min
--- NOTE | 2025-02-28 09:41 | Infectious Disease Progress Nt ---
Date of Service February 28, 2025 Assessment & Plan (1) RLL pneumonia: (2) Neutropenic fever: (3) History of B-cell lymphoma: Plan 74yo F with h/o DLBCL on chemo (previously tx with EPOCH-R 2013, now on brentuximab, Cytoxan, rituximab, prednisone since 12/18/24; last chemo 02/19 with neulasta), chest port, ILD on cellcept, breast cancer 1988 s/p chemo/XRT, systemic sclerosis, CREST, GAVE, Raynauds phenomenon who presented on 02/26 with fevers, weakness, SOB and feeling unwell since 02/24. On admission, she was febrile to 38.4, O2 sat 87% and was placed on 2L NC, BP stable. Initial labs with WBC 0.59 (ANC 40), Cr 0.50, AST/ALT wnl. Trop elevated. PCT 0.93. UA with 0-5 WBC. RPP negative. CXR with early PNA in right lung base. She has been started on broad empiric abx. ID consulted 02/27. Still having fevers, but symptomatically feeling well today. UCx has some growth but she does not have any symptoms. # RLL PNA # Neutropenic fever # h/o DLBCL on chemo via port - f/u urine legionella Ag - sputum cx already ordered - if she is able to provide specimen - continue cefepime 2g IV q8h - continue vancomycin pharmacy dosed protocol stop if no MRSA on blood cx - continue azithromycin 500mg PO daily stop of legionella negative Will continue to follow. If questions or concerns, [facility] or [facility]ious Disease Call [facility] . Melissa Vernon MD [facility], Division of Infectious Diseases Admission and Anticipated Discharge Date Admission Date: February 26, 2025 Subjective Subsequent visit was provided via telemedicine using two-way real-time interactive telecommunication between the patient and the telemedicine provider. For the duration of the visit, the provider was performing the assessment from a different facility than the patient. This includesuse of bluetooth stethoscope forauscultationperformed by the telepresenter that the telemedicine provider can hear if described in the physical exam. [employer] Att[employer] contact information: Please call [facility] Call Center . (Phone Number For Physician Use Only) After establishing a telemedicine visit, patient was: Patient was verified with two unique identifiers, Patient/authorized rep acknowledged consent and understanding and Gave permission to continue telehealth session Time Spent with Patient: Subsequent => 55 min Patient reports feeling well, SOB back to baseline, no pain. No cough, v/d. No urinary symptoms, no dysuria, hematuria, suprapubic pain or flank pain. Physical Exam Physical Exam: General: Awake, alert, no acute distress HEENT: NC/AT, EOMI, mmm Neck: supple Lungs: crackles in right lower lung Heart: nl S1/S2, no appreciable murmurs Chest: port site without erythema or tenderness Abdomen: soft, NT/ND Ext: no LE edema Skin: no rash Neuro: moving all extremities Results & Data Vital Signs (Past 12 Hours) Vital Signs Temp Pulse Pulse Resp BP Pulse Ox O2 Del Method 02/28/25 08:06 38.2 C H 114 H 18 129/76 97 Nasal Cannula 02/28/25 03:20 36.6 C 66 18 106/53 L 96 Nasal Cannula 02/27/25 23:04 36.5 C 80 18 97/58 L 99 Nasal Cannula 02/27/25 22:08 92 H O2 Flow Rate 02/28/25 08:06 2 02/28/25 03:20 2 02/27/25 23:04 02/27/25 22:08 Laboratory Results Labs reviewed.
--- NOTE | 2025-02-28 09:53 | Hospitalist Progress Note ---
Date of Service February 28, 2025 Assessment & Plan (1) RLL pneumonia: Plan: At risk of gram negative etiology in the setting of hospital admission 2 months ago, severe neutropenia from chemotherapy, etc. * thus, continue cefepime 2 gm IV q8h * add doxy 100mg BID for atypical coverage * MRSA swab returned negative; however, IV vanco will be ordered mainly to cover her A-port until blood cultures are final * NC O2 to keep sats 90% or greater * supportive care, albuterol prn, etc. * Anticipate 5days of IV abx * ID consult appreiated, abx changed to cefepime/zithromax/vanco (2) Neutropenic fever: Plan: source - RLL pneumonia * she also has been having chronic fevers/nightsweats in the setting of her diffuse large B-cell lymphoma for months * see above re: IV antibiotics * she does have A-port - IV vancomycin ordered to cover the port until blood cultures return * follow blood/urine cx's * cefepime/zithromax/vano for RLL pneumonia (3) Sepsis: Plan: 2nd RLL pneumonia * s/p IV fluid boluses/additional fluids given in ER * lactate wnl * creatinine stable * follow blood/urine cx's * antibiotics as discussed above (4) Chemotherapy induced neutropenia: Plan: daily CBC w/ diff while hospitalized * neutropenic precautions * s/p Neulasta around the time of her last chemotherapy cycle on 02/20/25 * I corresponded with Dr Logan Plummer her oncologist confirming that indeed she had received Neulasta * he does not recommend additional Neupogen at this time * IV antibiotics as noted above (5) Acute respiratory failure with hypoxia: Plan: documented O2 sats of 87% upon presentation today, and lower 80s at home * documented RR of 26 upon presentation today * resp failure 2nd to RLL pneumonia in setting of known ILD * provide supplemental o2 to keep sats 90% or greater, but sats in low 90s are likely acceptable given her chronic ILD (6) Diffuse large B cell lymphoma: Plan: follows with Dr Logan Plummer, [facility] Oncology office * s/p chemotherapy on 02/20/25 along with Neulasta * just had PET-CT at [facility] on 02/11/25 showing treatment response per office notes (I cannot find the actual PET-CT report in her chart, however) * 6 cycles of chemotherapy were planned for her disease * now with RLL pneumonia, neutropenia, anemia, etc as above (7) Hyponatremia: Plan: chronic, dating back to fall 2023 * baseline ~130 * Na level today - 129 * daily BMP while here (8) Hypomagnesemia: (9) Hypothyroidism: (10) GERD without esophagitis: (11) Dyslipidemia: (12) CREST (calcinosis, Raynaud's phenomenon, esophageal dysfunction, sclerodactyly, telangiectasia): Plan: No issues at this time (13) ILD (interstitial lung disease): Plan: known history of PF/ILD * previously was on Cellcept for such; this was d/c when she was getting ready to initiate Rx for her lymphoma * some of her CXR findings are likely ILD-related with superimposed RLL pneumonia * passed 2-step in December, but would get another prior to discharge from this hospitalization * defer on systemic steroids at this time (14) Hypokalemia: Plan: replacement given in ER * repeat BMP (15) Anemia: Plan: transfused 1 unit irradiated PRBC Plan 74yo female with diffuse large B-cell lymphoma - s/p initiation of 6 treatment cycles on 12/18/24 consisting of prednisone/rituximab/cytoxan/brentuximab (last treatment on 02/20/25) - along with ILD (previously on cellcept), CREST syndrome, GERD, hypothyroidism, iron deficiency anemia, GAVE, and hyponatremia. Presents with three 3 days of feeling poorly including weakness, fevers, chills, shortn ess of breath, and slight cough. Upon presentation has severe neutropenia, anemia, and evidence of RLL pneumonia. Likely sepsis as well. Admission and Anticipated Discharge Date Admission Date: February 26, 2025 Subjective No events overnight. Pt resting comfortably in chair. Review of Systems Review of Systems: CONST: Negative for fever, body aches and chills. HENT: Negative for neck pain/stiffness, headache, congestion, sore throat, swelling. EYES: Negative for discharge/pain or vision changes. RESP: Negative for cough/hemoptysis and shortness of breath. CV: Negative chest pain, difficulty breathing, palpitations. ABD: Negative pain, nausea, vomiting. : Negative increase frequency, dysuria, blood in urine or stool. MUSC: Negative for muscle aches, edema. SKIN: Negative rash, lesions/sores. NEURO: Negative headache, dizziness, weakness. Physical Exam Physical Exam: GENERAL APPEARANCE NAD, activity normal for age, well developed/ well nourished, no cyanosis, pallor, or diaphoresis. EYES lids/conjunctiva normal. EARS/NOSE/THROAT Mucous membranes moist, nares normal, lips/teeth normal uvula midline without oral pharyngeal erythema, exudate or swelling TMs normal bilaterally. No lymphangitis/lymphedema. HEAD/NECK normocephalic atraumatic, no facial trauma, neck is supple. RESPIRATORY respiratory effort normal, speaks in full sentences, no tripod position, no accessory muscle use. Lungs clear to auscultation without rhonchi, wheezes, rales CARDIAC Regular rate and rhythm, no edema. ABDOMINAL Soft, ND/NT. No evidence of fluid wave. No pulsatile masses on exam, rebound tenderness, Pompa sign or pain over Mcburney's point. MUSCLES/EXTREMITIES No abnormal range of motion, no swelling. SKIN Warm, pink and dry. No rashes, dermatoses, petechiae or lesions. NEUROLOGICAL Speech is clear and appropriate. Normal level of consciousness. Gait and coordination are normal. 5/5 strength in all extremities. PSYCH Normal mood and affect. Judgement/competence is appropriate Results & Data Results & Data Vital Signs (Past 12 Hours) Vital Signs Temp Pulse Pulse Resp BP Pulse Ox O2 Del Method 02/28/25 08:06 38.2 C H 114 H 18 129/76 97 Nasal Cannula 02/28/25 03:20 36.6 C 66 18 106/53 L 96 Nasal Cannula 02/27/25 23:04 36.5 C 80 18 97/58 L 99 Nasal Cannula 02/27/25 22:08 92 H O2 Flow Rate 02/28/25 08:06 2 02/28/25 03:20 2 02/27/25 23:04 02/27/25 22:08 PG Care Time/CCT Total # of Minutes Spent Total Time Spent with Patient: Total time spent is greater than 50% in coordination of care (as documented) at patient's floor/unit and/or counseling patient: Coding Level of Care Code 41839 SUB INP/OBS CARE 2/35MIN Diagnoses RLL pneumonia J18.9 Neutropenic fever D70.9; R50.81 Sepsis A41.9 Chemotherapy induced neutropenia D70.1; T45.1X5A Acute respiratory failure with hypoxia J96.01 Diffuse large B cell lymphoma C83.30 Hyponatremia E87.1 Hypomagnesemia E83.42 Hypothyroidism E03.9 GERD without esophagitis K21.9 Dyslipidemia E78.5 CREST (calcinosis, Raynaud's phenomenon, esophageal dysfunction, sclerodactyly, telangiectasia) M34.1 ILD (interstitial lung disease) J84.9 Hypokalemia E87.6 Anemia D64.9 Anemia type: unspecified type (15) Anemia Anemia type: unspecified type Qualified Code(s): D64.9 - Anemia, unspecified
[2025-02-28] MEDS: VANCOMYCIN HCL 1,000 MG/270 ML BAG IV SCH (11:01)
--- NOTE | 2025-02-28 11:04 | Pharmacy Report ---
Pharmacy PK ABX Note - Date of Service February 28, 2025 - Assessment and Plan Assessment 02/28: * Day # 3 vancomycin/cefepime in setting of pneumonia and neutropenic fever. ID following. Renal function stable. 02/26: * 74 year old F receiving cefepime and vancomycin for treatment of neutropenic fever, pneumonia. * Pertinent microbiologic data includes: blood and urine cultures pending, nasal MRSA pending Plan Vancomycin * Current regimen: vancomycin 1gm IV q12h * Random level this AM (~8h level), 10.2mcg/mL. Predicted to achieve ssAUC 355mg/L.hr which is subtherapeutic. * Increase vancomycin to 1gm IV q8h. Regimen is predicted to achieve target AUC/CAMILO of 531mg/L.hr * Repeat level tomorrow Pharmacy will continue to follow and will adjust dose/frequency as necessary. Thank you. Pharmacy has transitioned to AUC monitoring for vancomycin. AUC/CAMILO is the preferred PK/PD target and is associated with decreased risk of nephrotoxicity compared to traditional trough targets.
--- NOTE | 2025-03-01 08:44 | Infectious Disease Progress Nt ---
Date of Service March 01, 2025 Assessment & Plan (1) RLL pneumonia: (2) Neutropenic fever: (3) History of B-cell lymphoma: Plan 74yo F with h/o DLBCL on chemo (previously tx with EPOCH-R 2013, now on brentuximab, Cytoxan, rituximab, prednisone since 12/18/24; last chemo 02/19 with neulasta), chest port, ILD on cellcept, breast cancer 1988 s/p chemo/XRT, systemic sclerosis, CREST, GAVE, Raynauds phenomenon who presented on 02/26 with fevers, weakness, SOB and feeling unwell since 02/24. On admission, she was febrile to 38.4, O2 sat 87% and was placed on 2L NC, BP stable. Initial labs with WBC 0.59 (ANC 40), Cr 0.50, AST/ALT wnl. Trop elevated. PCT 0.93. UA with 0-5 WBC. RPP negative. CXR with early PNA in right lung base. She has been started on broad empiric abx. ID consulted 02/27. U legionella neg, BCX ngtd. # RLL PNA # Neutropenic fever last temp 02/28 # h/o DLBCL on chemo via port - Jackie stopped vancomycin given no growth of MRSA - Jackie also stopped azithromycin given negative Legionella - continue cefepime 2g IV q8h - when ANC is > 500 and afebrile, abx can be changed to levofloxacin 750mg PO daily to complete 7 days of tx for PNA Will continue to follow. If questions or concerns, contact via [employer] or Infectious Disease Call Center . Melissa Vernon MD [facility], Division of Infectious Diseases Admission and Anticipated Discharge Date Admission Date: February 26, 2025 Subjective This patient recommendation is based on a telemedicine consult request which was completed asynchronously through chart review and information provided by the primary physician. The patient was not seen or examined today. The evaluation is consultative in nature and all patient care and treatment decisions can either be accepted or rejected by the patient's primary hospital-based treating physician using their own independent medical judgment for their patient. Time Spent Reviewing Chart: 31+ minutes Afebrile since 02/28. Results & Data Vital Signs (Past 12 Hours) Vital Signs Temp Pulse Pulse Resp BP Pulse Ox O2 Del Method 03/01/25 08:38 36.8 C 109 H 18 110/68 03/01/25 04:02 36.9 C 95 H 20 106/48 L 92 Nasal Cannula 02/28/25 23:35 36.9 C 88 14 103/47 L 95 Nasal Cannula 02/28/25 21:47 80 O2 Flow Rate 03/01/25 08:38 03/01/25 04:02 2 02/28/25 23:35 2 02/28/25 21:47
[2025-03-01] MEDS ORDERED: VANCOMYCIN LEVEL ONE (09:00)
--- NOTE | 2025-03-01 09:27 | Hospitalist Progress Note ---
Date of Service March 01, 2025 Assessment & Plan (1) RLL pneumonia: Plan: At risk of gram negative etiology in the setting of hospital admission 2 months ago, severe neutropenia from chemotherapy, etc. * thus, continue cefepime 2 gm IV q8h * add doxy 100mg BID for atypical coverage * MRSA swab returned negative; however, IV vanco will be ordered mainly to cover her A-port until blood cultures are final * NC O2 to keep sats 90% or greater * supportive care, albuterol prn, etc. * Anticipate 5days of IV abx * ID consult appreciated, abx changed to cefepime only now * will d/c on levaquin once afebrile for 24hrs * possible in am 03/02 (2) Neutropenic fever: Plan: source - RLL pneumonia * she also has been having chronic fevers/nightsweats in the setting of her diffuse large B-cell lymphoma for months * see above re: IV antibiotics * she does have A-port - IV vancomycin ordered to cover the port until blood cultures return * follow blood/urine cx's * cefepime/zithromax/vano for RLL pneumonia (3) Sepsis: Plan: 2nd RLL pneumonia * s/p IV fluid boluses/additional fluids given in ER * lactate wnl * creatinine stable * follow blood/urine cx's * antibiotics as discussed above (4) Chemotherapy induced neutropenia: Plan: daily CBC w/ diff while hospitalized * neutropenic precautions * s/p Neulasta around the time of her last chemotherapy cycle on 02/20/25 * I corresponded with Dr Logan Plummer her oncologist confirming that indeed she had received Neulasta * he does not recommend additional Neupogen at this time * IV antibiotics as noted above (5) Acute respiratory failure with hypoxia: Plan: documented O2 sats of 87% upon presentation today, and lower 80s at home * documented RR of 26 upon presentation today * resp failure 2nd to RLL pneumonia in setting of known ILD * provide supplemental o2 to keep sats 90% or greater, but sats in low 90s are likely acceptable given her chronic ILD (6) Diffuse large B cell lymphoma: Plan: follows with Dr Logan Plummer, [facility] Oncology office * s/p chemotherapy on 02/20/25 along with Neulasta * just had PET-CT at [facility] on 02/11/25 showing treatment response per office notes (I cannot find the actual PET-CT report in her chart, however) * 6 cycles of chemotherapy were planned for her disease * now with RLL pneumonia, neutropenia, anemia, etc as above (7) Hyponatremia: Plan: chronic, dating back to fall 2023 * baseline ~130 * Na level today - 129 * daily BMP while here (8) Hypomagnesemia: (9) Hypothyroidism: (10) GERD without esophagitis: (11) Dyslipidemia: (12) CREST (calcinosis, Raynaud's phenomenon, esophageal dysfunction, sclerodactyly, telangiectasia): Plan: No issues at this time (13) ILD (interstitial lung disease): Plan: known history of PF/ILD * previously was on Cellcept for such; this was d/c when she was getting ready to initiate Rx for her lymphoma * some of her CXR findings are likely ILD-related with superimposed RLL pneumonia * passed 2-step in December, but would get another prior to discharge from this hospitalization * defer on systemic steroids at this time (14) Hypokalemia: Plan: replacement given in ER * repeat BMP (15) Anemia: Plan: transfused 1 unit irradiated PRBC Plan 74yo female with diffuse large B-cell lymphoma - s/p initiation of 6 treatment cycles on 12/18/24 consisting of prednisone/rituximab/cytoxan/brentuximab (last treatment on 02/20/25) - along with ILD (previously on cellcept), CREST syndrome, GERD, hypothyroidism, iron deficiency anemia, GAVE, and hyponatremia. Presents with three 3 days of feeling poorly including weakness, fevers, chills, shortness of breath, and slight cough. Upon presentation has severe neutropenia, anemia, and evidence of RLL pneumonia. Likely sepsis as well. Admission and Anticipated Discharge Date Admission Date: February 26, 2025 Subjective No events overnight. Pt resting comfortably in bed. Review of Systems Review of Systems: CONST: Negative for fever, body aches and chills. HENT: Negative for neck pain/stiffness, headache, congestion, sore throat, swelling. EYES: Negative for discharge/pain or vision changes. RESP: Negative for cough/hemoptysis and shortness of breath. CV: Negative chest pain, difficulty breathing, palpitations. ABD: Negative pain, nausea, vomiting. : Negative increase frequency, dysuria, blood in urine or stool. MUSC: Negative for muscle aches, edema. SKIN: Negative rash, lesions/sores. NEURO: Negative headache, dizziness, weakness. Physical Exam Physical Exam: GENERAL APPEARANCE NAD, activity normal for age, well developed/ well nourished, no cyanosis, pallor, or diaphoresis. EYES lids/conjunctiva normal. EARS/NOSE/THROAT Mucous membranes moist, nares normal, lips/teeth normal uvula midline without oral pharyngeal erythema, exudate or swelling TMs normal bilaterally. No lymphangitis/lymphedema. HEAD/NECK normocephalic atraumatic, no facial trauma, neck is supple. RESPIRATORY respiratory effort normal, speaks in full sentences, no tripod position, no accessory muscle use. Lungs clear to auscultation without rhonchi, wheezes, rales CARDIAC Regular rate and rhythm, no edema. ABDOMINAL Soft, ND/NT. No evidence of fluid wave. No pulsatile masses on exam, rebound tenderness, Pompa sign or pain over Mcburney's point. MUSCLES/EXTREMITIES No abnormal range of motion, no swelling. SKIN Warm, pink and dry. No rashes, dermatoses, petechiae or lesions. NEUROLOGICAL Speech is clear and appropriate. Normal level of consciousness. Gait and coordination are normal. 5/5 strength in all extremities. PSYCH Normal mood and affect. Judgement/competence is appropriate Results & Data Results & Data Vital Signs (Past 12 Hours) Vital Signs Temp Pulse Pulse Resp BP Pulse Ox O2 Del Method 03/01/25 08:38 36.8 C 109 H 18 110/68 03/01/25 04:02 36.9 C 95 H 20 106/48 L 92 Nasal Cannula 02/28/25 23:35 36.9 C 88 14 103/47 L 95 Nasal Cannula 02/28/25 21:47 80 O2 Flow Rate 03/01/25 08:38 03/01/25 04:02 2 02/28/25 23:35 2 02/28/25 21:47 PG Care Time/CCT Total # of Minutes Spent Total Time Spent with Patient: Total time spent is greater than 50% in coordination of care (as documented) at patient's floor/unit and/or counseling patient: Coding Level of Care Code 33721 SUB INP/OBS CARE 2/35MIN Diagnoses RLL pneumonia J18.9 Neutropenic fever D70.9; R50.81 Sepsis A41.9 Chemotherapy induced neutropenia D70.1; T45.1X5A Acute respiratory failure with hypoxia J96.01 Diffuse large B cell lymphoma C83.30 Hyponatremia E87.1 Hypomagnesemia E83.42 Hypothyroidism E03.9 GERD without esophagitis K21.9 Dyslipidemia E78.5 CREST (calcinosis, Raynaud's phenomenon, esophageal dysfunction, sclerodactyly, telangiectasia) M34.1 ILD (interstitial lung disease) J84.9 Hypokalemia E87.6 Anemia D64.9 Anemia type: unspecified type (15) Anemia Anemia type: unspecified type Qualified Code(s): D64.9 - Anemia, unspecified
[2025-03-01 11:13] LABS: Hematocrit (blood only) 25.9 % (37.0-47.0); Hemoglobin 8.5 g/dl (12.0-16.0); Mean Corpuscular Hemoglobin 29.4 pg (25.0-34.0); Mean Corpuscular Hgb Conc 32.8 g/dL (32.0-36.0); Mean Corpuscular Volume 89.6 fL (80.0-100.0); Mean Platelet Volume 9.8 fL (9.4-12.4); Nucleated RBC # (auto) 0.07 K/uL (0.00-0.12); Nucleated RBC % (auto) 0.5 %; Platelet Count 216 K/uL (130-400); RDW Coefficient of Variation 18.3 % (11.5-14.5); RDW Standard Deviation 59.2 fL (36.4-46.3); Red Blood Count 2.89 M/uL (4.20-5.40); White Blood Count 13.96 K/ul (4.8-10.8)
[2025-03-01 11:30] LABS: BUN Creatinine Ratio 14.6 (10-20); Calcium 8.1 mg/dl (8.6-10.3); Creatinine Clr Calc Pharmacy 93.9 ml/min; Potassium 3.4 mmol/L (3.5-5.1)
[2025-03-01] MEDS: HEPARIN 100 UNIT/ML 5ML FLUSH FLUSH PRN (13:57)
[2025-03-02 07:23] LABS: Hematocrit (blood only) 25.8 % (37.0-47.0); Hemoglobin 8.2 g/dl (12.0-16.0); Mean Corpuscular Hemoglobin 28.8 pg (25.0-34.0); Mean Corpuscular Hgb Conc 31.8 g/dL (32.0-36.0); Mean Corpuscular Volume 90.5 fL (80.0-100.0); Mean Platelet Volume 9.5 fL (9.4-12.4); Nucleated RBC # (auto) 0.04 K/uL (0.00-0.12); Nucleated RBC % (auto) 0.3 %; Platelet Count 220 K/uL (130-400); RDW Coefficient of Variation 18.2 % (11.5-14.5); RDW Standard Deviation 59.5 fL (36.4-46.3); Red Blood Count 2.85 M/uL (4.20-5.40); White Blood Count 14.08 K/ul (4.8-10.8)
[2025-03-02 07:31] LABS: Calcium 8.1 mg/dl (8.6-10.3); Creatinine Clr Calc Pharmacy 90.2 ml/min; Potassium 3.3 mmol/L (3.5-5.1)
[2025-03-02] MEDS: POTASSIUM CHLORIDE / WTR 10 MEQ/100 ML PLCT IV SCH (09:36)
--- NOTE | 2025-03-02 09:49 | Hospitalist Progress Note ---
Date of Service March 02, 2025 Assessment & Plan (1) RLL pneumonia: Plan: At risk of gram negative etiology in the setting of hospital admission 2 months ago, severe neutropenia from chemotherapy, etc. * thus, continue cefepime 2 gm IV q8h * add doxy 100mg BID for atypical coverage * MRSA swab returned negative; however, IV vanco will be ordered mainly to cover her A-port until blood cultures are final * NC O2 to keep sats 90% or greater * supportive care, albuterol prn, etc. * Anticipate 5days of IV abx * ID consult appreciated, abx changed to cefepime only now * will d/c on levaquin once afebrile for 24hrs * pt had temp of 38.1 yesterday * possible d/c 03/03 if remaining afebrile (2) Neutropenic fever: Plan: source - RLL pneumonia * she also has been having chronic fevers/nightsweats in the setting of her diffuse large B-cell lymphoma for months * see above re: IV antibiotics * she does have A-port - IV vancomycin ordered to cover the port until blood cultures return * follow blood/urine cx's * cefepime/zithromax/vano for RLL pneumonia (3) Sepsis: Plan: 2nd RLL pneumonia * s/p IV fluid boluses/additional fluids given in ER * lactate wnl * creatinine stable * follow blood/urine cx's * antibiotics as discussed above (4) Chemotherapy induced neutropenia: Plan: daily CBC w/ diff while hospitalized * neutropenic precautions * s/p Neulasta around the time of her last chemotherapy cycle on 02/20/25 * I corresponded with Dr Logan Plummer her oncologist confirming that indeed she had received Neulasta * he does not recommend additional Neupogen at this time * IV antibiotics as noted above (5) Acute respiratory failure with hypoxia: Plan: documented O2 sats of 87% upon presentation today, and lower 80s at home * documented RR of 26 upon presentation today * resp failure 2nd to RLL pneumonia in setting of known ILD * provide supplemental o2 to keep sats 90% or greater, but sats in low 90s are likely acceptable given her chronic ILD (6) Diffuse large B cell lymphoma: Plan: follows with Dr Logan Plummer, [facility] Oncology office * s/p chemotherapy on 02/20/25 along with Neulasta * just had PET-CT at [facility] on 02/11/25 showing treatment response per office notes (I cannot find the actual PET-CT report in her chart, however) * 6 cycles of chemotherapy were planned for her disease * now with RLL pneumonia, neutropenia, anemia, etc as above (7) Hyponatremia: Plan: chronic, dating back to fall 2023 * baseline ~130 * Na level today - 136 * daily BMP while here (8) Hypomagnesemia: (9) Hypothyroidism: (10) GERD without esophagitis: (11) Dyslipidemia: (12) CREST (calcinosis, Raynaud's phenomenon, esophageal dysfunction, sclerodactyly, telangiectasia): Plan: No issues at this time (13) ILD (interstitial lung disease): Plan: known history of PF/ILD * previously was on Cellcept for such; this was d/c when she was getting ready to initiate Rx for her lymphoma * some of her CXR findings are likely ILD-related with superimposed RLL pneumonia * passed 2-step in December, but would get another prior to discharge from this hospitalization * defer on systemic steroids at this time (14) Hypokalemia: Plan: replacement given in ER * repeat BMP (15) Anemia: Plan: transfused 1 unit irradiated PRBC Plan 74yo female with diffuse large B-cell lymphoma - s/p initiation of 6 treatment cycles on 12/18/24 consisting of prednisone/rituximab/cytoxan/brentuximab (last treatment on 02/20/25) - along with ILD (previously on cellcept), CREST syndrome, GERD, hypothyroidism, iron deficiency anemia, GAVE, and hyponatremia. Presents with three 3 days of feeling poorly including weakness, fevers, chills, shortness of breath, and slight cough. Upon presentation has severe neutropenia, anemia, and evidence of RLL pneumonia. Likely sepsis as well. Admission and Anticipated Discharge Date Admission Date: February 26, 2025 Subjective No events overnight. Pt resting comfortably in bed. She did have temp of 38.1 yesterday Review of Systems Review of Systems: CONST: Negative for fever, body aches and chills. HENT: Negative for neck pain/stiffness, headache, congestion, sore throat, swelling. EYES: Negative for discharge/pain or vision changes. RESP: Negative for cough/hemoptysis and shortness of breath. CV: Negative chest pain, difficulty breathing, palpitations. ABD: Negative pain, nausea, vomiting. : Negative increase frequency, dysuria, blood in urine or stool. MUSC: Negative for muscle aches, edema. SKIN: Negative rash, lesions/sores. NEURO: Negative headache, dizziness, weakness. Physical Exam Physical Exam: GENERAL APPEARANCE NAD, activity normal for age, well developed/ well nourished, no cyanosis, pallor, or diaphoresis. EYES lids/conjunctiva normal. EARS/NOSE/THROAT Mucous membranes moist, nares normal, lips/teeth normal uvula midline without oral pharyngeal erythema, exudate or swelling TMs normal bilaterally. No lymphangitis/lymphedema. HEAD/NECK normocephalic atraumatic, no facial trauma, neck is supple. RESPIRATORY respiratory effort normal, speaks in full sentences, no tripod position, no accessory muscle use. Lungs clear to auscultation without rhonchi, wheezes, rales CARDIAC Regular rate and rhythm, no edema. ABDOMINAL Soft, ND/NT. No evidence of fluid wave. No pulsatile masses on exam, rebound tenderness, Pompa sign or pain over Mcburney's point. MUSCLES/EXTREMITIES No abnormal range of motion, no swelling. SKIN Warm, pink and dry. No rashes, dermatoses, petechiae or lesions. NEUROLOGICAL Speech is clear and appropriate. Normal level of consciousness. Gait and coordination are normal. 5/5 strength in all extremities. PSYCH Normal mood and affect. Judgement/competence is appropriate Results & Data Results & Data Vital Signs (Past 12 Hours) Vital Signs Temp Pulse Pulse Pulse Resp BP BP 03/02/25 07:29 37.0 C 117 H 18 124/67 03/02/25 04:00 36.7 C 89 18 108/65 03/02/25 00:49 93 H 03/02/25 00:00 36.9 C 87 18 101/55 L 03/01/25 21:53 Pulse Ox O2 Del Method O2 Flow Rate 03/02/25 07:29 93 Nasal Cannula 2 03/02/25 04:00 95 Nasal Cannula 2 03/02/25 00:49 03/02/25 00:00 94 Nasal Cannula 2 03/01/25 21:53 Nasal Cannula 2 PG Care Time/CCT Total # of Minutes Spent Total Time Spent with Patient: Total time spent is greater than 50% in coordination of care (as documented) at patient's floor/unit and/or counseling patient: Coding Level of Care Code 93089 SUB INP/OBS CARE 2/35MIN Diagnoses RLL pneumonia J18.9 Neutropenic fever D70.9; R50.81 Sepsis A41.9 Chemotherapy induced neutropenia D70.1; T45.1X5A Acute respiratory failure with hypoxia J96.01 Diffuse large B cell lymphoma C83.30 Hyponatremia E87.1 Hypomagnesemia E83.42 Hypothyroidism E03.9 GERD without esophagitis K21.9 Dyslipidemia E78.5 CREST (calcinosis, Raynaud's phenomenon, esophageal dysfunction, sclerodactyly, telangiectasia) M34.1 ILD (interstitial lung disease) J84.9 Hypokalemia E87.6 Anemia D64.9 Anemia type: unspecified type (15) Anemia Anemia type: unspecified type Qualified Code(s): D64.9 - Anemia, unspecified
[2025-03-03 07:21] LABS: Hematocrit (blood only) 27.6 % (37.0-47.0); Mean Corpuscular Hemoglobin 29.3 pg (25.0-34.0); Mean Corpuscular Hgb Conc 32.6 g/dL (32.0-36.0); Mean Corpuscular Volume 89.9 fL (80.0-100.0); Mean Platelet Volume 9.5 fL (9.4-12.4); Nucleated RBC # (auto) 0.02 K/uL (0.00-0.12); Nucleated RBC % (auto) 0.1 %; Platelet Count 231 K/uL (130-400); RDW Coefficient of Variation 18.2 % (11.5-14.5); RDW Standard Deviation 58.8 fL (36.4-46.3); Red Blood Count 3.07 M/uL (4.20-5.40); White Blood Count 16.81 K/ul (4.8-10.8)
[2025-03-03 07:45] LABS: BUN Creatinine Ratio 16.7 (10-20); Calcium 8.5 mg/dl (8.6-10.3); Creatinine Clr Calc Pharmacy 83.5 ml/min; Potassium 3.4 mmol/L (3.5-5.1)
--- NOTE | 2025-03-03 10:58 | Hospitalist Progress Note ---
Date of Service March 03, 2025 Assessment & Plan (1) RLL pneumonia: Plan: At risk of gram negative etiology in the setting of hospital admission 2 months ago, severe neutropenia from chemotherapy, etc. * thus, continue cefepime 2 gm IV q8h * add doxy 100mg BID for atypical coverage * MRSA swab returned negative; however, IV vanco will be ordered mainly to cover her A-port until blood cultures are final * NC O2 to keep sats 90% or greater * supportive care, albuterol prn, etc. * Anticipate 5days of IV abx * ID consult appreciated, abx changed to cefepime only now * will d/c on levaquin once afebrile for 24hrs * pt had temp of 38.0 yesterday * possible d/c 03/04 if remaining afebrile (2) Neutropenic fever: Plan: source - RLL pneumonia * she also has been having chronic fevers/nightsweats in the setting of her diffuse large B-cell lymphoma for months * see above re: IV antibiotics * she does have A-port - IV vancomycin ordered to cover the port until blood cultures return * follow blood/urine cx's * cefepime for RLL pneumonia (3) Sepsis: Plan: 2nd RLL pneumonia * s/p IV fluid boluses/additional fluids given in ER * lactate wnl * creatinine stable * follow blood/urine cx's * antibiotics as discussed above (4) Chemotherapy induced neutropenia: Plan: daily CBC w/ diff while hospitalized * neutropenic precautions * s/p Neulasta around the time of her last chemotherapy cycle on 02/20/25 * I corresponded with Dr Logan Plummer her oncologist confirming that indeed she had received Neulasta * he does not recommend additional Neupogen at this time * IV antibiotics as noted above (5) Acute respiratory failure with hypoxia: Plan: documented O2 sats of 87% upon presentation today, and lower 80s at home * documented RR of 26 upon presentation today * resp failure 2nd to RLL pneumonia in setting of known ILD * provide supplemental o2 to keep sats 90% or greater, but sats in low 90s are likely acceptable given her chronic ILD (6) Diffuse large B cell lymphoma: Plan: follows with Dr Logan Plummer, [facility] Oncology office * s/p chemotherapy on 02/20/25 along with Neulasta * just had PET-CT at [facility] on 02/11/25 showing treatment response per office notes (I cannot find the actual PET-CT report in her chart, however) * 6 cycles of chemotherapy were planned for her disease * now with RLL pneumonia, neutropenia, anemia, etc as above (7) Hyponatremia: Plan: chronic, dating back to fall 2023 * baseline ~130 * Na level today - 136 * daily BMP while here (8) Hypomagnesemia: (9) Hypothyroidism: (10) GERD without esophagitis: (11) Dyslipidemia: (12) CREST (calcinosis, Raynaud's phenomenon, esophageal dysfunction, sclerodactyly, telangiectasia): Plan: No issues at this time (13) ILD (interstitial lung disease): Plan: known history of PF/ILD * previously was on Cellcept for such; this was d/c when she was getting ready to initiate Rx for her lymphoma * some of her CXR findings are likely ILD-related with superimposed RLL pneumonia * passed 2-step in December, but would get another prior to discharge from this hospitalization * defer on systemic steroids at this time (14) Hypokalemia: Plan: replacement given in ER * repeat BMP (15) Anemia: Plan: transfused 1 unit irradiated PRBC Plan 74yo female with diffuse large B-cell lymphoma - s/p initiation of 6 treatment cycles on 12/18/24 consisting of prednisone/rituximab/cytoxan/brentuximab (last treatment on 02/20/25) - along with ILD (previously on cellcept), CREST syndrome, GERD, hypothyroidism, iron deficiency anemia, GAVE, and hyponatremia. Presents with three 3 days of feeling poorly including weakness, fevers, chills, shortness of breath, and slight cough. Upon presentation has severe neutropenia, anemia, and evidence of RLL pneumonia. Likely sepsis as well. D/C home on levaquin once remaining afebrile for 24hrs Admission and Anticipated Discharge Date Admission Date: February 26, 2025 Subjective No events overnight. Pt had temp of 100.4F overnight. Review of Systems Review of Systems: CONST: Negative for fever, body aches and chills. HENT: Negative for neck pain/stiffness, headache, congestion, sore throat, swelling. EYES: Negative for discharge/pain or vision changes. RESP: Negative for cough/hemoptysis and shortness of breath. CV: Negative chest pain, difficulty breathing, palpitations. ABD: Negative pain, nausea, vomiting. : Negative increase frequency, dysuria, blood in urine or stool. MUSC: Negative for muscle aches, edema. SKIN: Negative rash, lesions/sores. NEURO: Negative headache, dizziness, weakness. Physical Exam Physical Exam: GENERAL APPEARANCE NAD, activity normal for age, well developed/ well nourished, no cyanosis, pallor, or diaphoresis. EYES lids/conjunctiva normal. EARS/NOSE/THROAT Mucous membranes moist, nares normal, lips/teeth normal uvula midline without oral pharyngeal erythema, exudate or swelling TMs normal bilaterally. No lymphangitis/lymphedema. HEAD/NECK normocephalic atraumatic, no facial trauma, neck is supple. RESPIRATORY respiratory effort normal, speaks in full sentences, no tripod position, no accessory muscle use. Lungs clear to auscultation without rhonchi, wheezes, rales CARDIAC Regular rate and rhythm, no edema. ABDOMINAL Soft, ND/NT. No evidence of fluid wave. No pulsatile masses on exam, rebound tenderness, Pompa sign or pain over Mcburney's point. MUSCLES/EXTREMITIES No abnormal range of motion, no swelling. SKIN Warm, pink and dry. No rashes, dermatoses, petechiae or lesions. NEUROLOGICAL Speech is clear and appropriate. Normal level of consciousness. Gait and coordination are normal. 5/5 strength in all extremities. PSYCH Normal mood and affect. Judgement/competence is appropriate Results & Data Results & Data Vital Signs (Past 12 Hours) Vital Signs Temp Pulse Resp BP BP Pulse Ox O2 Del Method 03/03/25 09:51 36.6 C 03/03/25 07:46 36.7 C 102 H 18 138/75 95 Room Air 03/03/25 06:27 37.0 C 03/03/25 04:00 38.0 C H 118 H 20 103/62 94 Room Air 03/03/25 00:00 36.9 C 93 H 18 106/69 91 Room Air PG Care Time/CCT Total # of Minutes Spent Total Time Spent with Patient: Total time spent is greater than 50% in coordination of care (as documented) at patient's floor/unit and/or counseling patient: Coding Level of Care Code 20409 SUB INP/OBS CARE 2/35MIN Diagnoses RLL pneumonia J18.9 Neutropenic fever D70.9; R50.81 Sepsis A41.9 Chemotherapy induced neutropenia D70.1; T45.1X5A Acute respiratory failure with hypoxia J96.01 Diffuse large B cell lymphoma C83.30 Hyponatremia E87.1 Hypomagnesemia E83.42 Hypothyroidism E03.9 GERD without esophagitis K21.9 Dyslipidemia E78.5 CREST (calcinosis, Raynaud's phenomenon, esophageal dysfunction, sclerodactyly, telangiectasia) M34.1 ILD (interstitial lung disease) J84.9 Hypokalemia E87.6 Anemia D64.9 Anemia type: unspecified type (15) Anemia Anemia type: unspecified type Qualified Code(s): D64.9 - Anemia, unspecified
[2025-03-04 06:41] LABS: Hematocrit (blood only) 27.3 % (37.0-47.0); Hemoglobin 8.8 g/dl (12.0-16.0); Mean Corpuscular Hemoglobin 29.1 pg (25.0-34.0); Mean Corpuscular Hgb Conc 32.2 g/dL (32.0-36.0); Mean Corpuscular Volume 90.4 fL (80.0-100.0); Mean Platelet Volume 9.6 fL (9.4-12.4); Nucleated RBC # (auto) 0.02 K/uL (0.00-0.12); Nucleated RBC % (auto) 0.1 %; Platelet Count 248 K/uL (130-400); RDW Standard Deviation 59.7 fL (36.4-46.3); Red Blood Count 3.02 M/uL (4.20-5.40); White Blood Count 17.24 K/ul (4.8-10.8)
[2025-03-04 07:04] LABS: Calcium 8.6 mg/dl (8.6-10.3); Creatinine Clr Calc Pharmacy 90.2 ml/min; Potassium 3.7 mmol/L (3.5-5.1)
[2025-03-04] MEDS: CEFEPIME 2000MG 2,000 MG/20 ML SYR IV SCH (08:15)
[2025-03-04 08:37] LABS: ALC (manual) 1.03 K/uL (1.2-3.4); Basophils # (manual) 0.34 K/uL (0-0.2); Basophils % (manual) 2 %; Lymphocytes # (manual) 1.03 K/uL (1.2-3.4); Lymphocytes % (manual) 6 %; Metamyelocytes # (manual) 0.86 K/uL (0-0); Metamyelocytes % (manual) 5 %; Monocytes # (manual) 1.38 K/uL (0.11-0.59); Monocytes % (manual) 8 %; Myelocytes # (manual) 0.52 K/uL (0-0); Myelocytes % (manual) 3 %; Neutrophils % (manual) 76 %; Polychromasia 1+; Tear Drop Cells 1+; Toxic Vacuolation 1+
--- NOTE | 2025-03-04 08:38 | Infectious Disease Progress Nt ---
Date of Service March 04, 2025 Assessment & Plan (1) RLL pneumonia: (2) Neutropenic fever: (3) History of B-cell lymphoma: Plan 74yo F with h/o DLBCL on chemo (previously tx with EPOCH-R 2013, now on brentuximab, Cytoxan, rituximab, prednisone since 12/18/24; last chemo 02/19 with neulasta), chest port, ILD on cellcept, breast cancer 1988 s/p chemo/XRT, systemic sclerosis, CREST, GAVE, Raynauds phenomenon who presented on 02/26 with fevers, weakness, SOB and feeling unwell since 02/24. On admission, she was febrile to 38.4, O2 sat 87% and was placed on 2L NC, BP stable. Initial labs with WBC 0.59 (ANC 40), Cr 0.50, AST/ALT wnl. Trop elevated. PCT 0.93. UA with 0-5 WBC. RPP negative. CXR with early PNA in right lung base. She has been started on broad empiric abx. ID consulted 02/27. U legionella neg, BCX ngtd. Patient appears well today. No specific complaints. Elevated WBC could be related to her lymphoma. Last temp was 24hrs ago. If she does continue to have fevers, may need to consider pursuing further workup (ie CTAP). # RLL PNA # Neutropenic fever last temp 03/03 # h/o DLBCL on chemo via port - continue cefepime 2g IV q8h - if she remains afebrile, then continue antibiotics for 48hrs after last fever and then stop (today is day 7) can be done with levofloxacin 750mg PO daily on discharge - if she continues to have fevers, then would pursue CTCAP with IV contrast, repeat BCX, send fungal studies etc for further workup Will continue to follow. If questions or concerns, contact via [employer] or Infectious Disease Call Center . Melissa Vernon MD [facility], Division of Infectious Diseases Admission and Anticipated Discharge Date Admission Date: February 26, 2025 Subjective Subsequent visit was provided via telemedicine using two-way real-time interactive telecommunication between the patient and the telemedicine provider. For the duration of the visit, the provider was performing the assessment from a different facility than the patient. This includesuse of bluetooth stethoscope forauscultationperformed by the telepresenter that the telemedicine provider can hear if described in the physical exam. Senior Electrical Engineer contact information: Please call [facility] Call Center . (Phone Number For Physician Use Only) After establishing a telemedicine visit, patient was: Patient was verified with two unique identifiers, Patient/authorized rep acknowledged consent and understanding and Gave permission to continue telehealth session Time Spent with Patient: Subsequent => 55 min Patient without complaints. No SOB. Cough started yesterday, nonproductive. Has been ambulating without issues. No chest pain, abdominal pain, vomiting, diarrhea. No dysuria or frequency. No rashes Physical Exam Physical Exam: General: Awake, alert, no acute distress HEENT: NC/AT, EOMI, mmm Neck: supple Abdomen: soft, NT/ND Results & Data Vital Signs (Past 12 Hours) Vital Signs Temp Pulse Pulse Pulse Resp BP BP 03/04/25 08:00 36.8 C 03/04/25 07:56 37.4 C 117 H 18 141/75 H 03/04/25 03:10 37.6 C 106 H 19 122/60 03/04/25 00:00 37.2 C 102 H 18 113/64 03/03/25 22:43 96 H Pulse Ox O2 Del Method 03/04/25 08:00 03/04/25 07:56 91 Room Air 03/04/25 03:10 91 Room Air 03/04/25 00:00 91 Room Air 03/03/25 22:43 Laboratory Results Labs reviewed.
--- NOTE | 2025-03-04 22:40 | Hospitalist Progress Note ---
Date of Service March 04, 2025 Assessment & Plan (1) RLL pneumonia: Plan: At risk of gram negative etiology in the setting of hospital admission 2 months ago, severe neutropenia from chemotherapy, etc. * thus, continue cefepime 2 gm IV q8h * add doxy 100mg BID for atypical coverage * MRSA swab returned negative; however, IV vanco will be ordered mainly to cover her A-port until blood cultures are final * NC O2 to keep sats 90% or greater * supportive care, albuterol prn, etc. * Anticipate 5days of IV abx * ID consult appreciated, abx changed to cefepime only now * will d/c on levaquin once afebrile for 48hr * had discussion with ID and recommends that this would be safer if patient is afebrile for 48 hr before discharge. * pt had temp of 38.0 yesterday * possible d/c 03/04 if remaining afebrile (2) Neutropenic fever: Plan: source - RLL pneumonia * she also has been having chronic fevers/nightsweats in the setting of her diffuse large B-cell lymphoma for months * see above re: IV antibiotics * she does have A-port - IV vancomycin ordered to cover the port until blood cultures return * follow blood/urine cx's * cefepime for RLL pneumonia * appears to have resolved. (3) Sepsis: Plan: 2nd RLL pneumonia * s/p IV fluid boluses/additional fluids given in ER * lactate wnl * creatinine stable * follow blood/urine cx's * antibiotics as discussed above (4) Chemotherapy induced neutropenia: Plan: daily CBC w/ diff while hospitalized * neutropenic precautions * s/p Neulasta around the time of her last chemotherapy cycle on 02/20/25 * I corresponded with Dr Logan Plummer her oncologist confirming that indeed she had received Neulasta * he does not recommend additional Neupogen at this time * IV antibiotics as noted above (5) Acute respiratory failure with hypoxia: Plan: documented O2 sats of 87% upon presentation today, and lower 80s at home * documented RR of 26 upon presentation today * resp failure 2nd to RLL pneumonia in setting of known ILD * provide supplemental o2 to keep sats 90% or greater, but sats in low 90s are likely acceptable given her chronic ILD (6) Diffuse large B cell lymphoma: Plan: follows with Dr Logan Plummer, [facility] Oncology office * s/p chemotherapy on 02/20/25 along with Neulasta * just had PET-CT at [facility] on 02/11/25 showing treatment response per off ice notes (I cannot find the actual PET-CT report in her chart, however) * 6 cycles of chemotherapy were planned for her disease * now with RLL pneumonia, neutropenia, anemia, etc as above (7) Hyponatremia: Plan: chronic, dating back to fall 2023 * baseline ~130 * Na level today - 136 * resolved. (8) Hypomagnesemia: (9) Hypothyroidism: (10) GERD without esophagitis: (11) Dyslipidemia: (12) CREST (calcinosis, Raynaud's phenomenon, esophageal dysfunction, sclerodactyly, telangiectasia): Plan: No issues at this time (13) ILD (interstitial lung disease): Plan: known history of PF/ILD * previously was on Cellcept for such; this was d/c when she was getting ready to initiate Rx for her lymphoma * some of her CXR findings are likely ILD-related with superimposed RLL pneumonia * passed 2-step in December, but would get another prior to discharge from this hospitalization * defer on systemic steroids at this time (14) Hypokalemia: Plan: replacement given in ER * repeat BMP (15) Anemia: Plan: transfused 1 unit irradiated PRBC Plan 74yo female with diffuse large B-cell lymphoma - s/p initiation of 6 treatment cycles on 12/18/24 consisting of prednisone/rituximab/cytoxan/brentuximab (last treatment on 02/20/25) - along with ILD (previously on cellcept), CREST syndrome, GERD, hypothyroidism, iron deficiency anemia, GAVE, and hyponatremia. Presents with three 3 days of feeling poorly including weakness, fevers, chills, shortness of breath, and slight cough. Upon presentation has severe neutropenia, anemia, and evidence of RLL pneumonia. Likely sepsis as well. D/C home on levaquin once remaining afebrile for 24hrs Admission and Anticipated Discharge Date Admission Date: February 26, 2025 Subjective 74 yo female reports no new symptoms. Physical Exam Physical Exam: General: Awake, alert, no acute distress HEENT: NC/AT, EOMI, mmm Neck: supple Chest: not using accessory muscles to breath Abdomen: soft, NT/ND Results & Data Results & Data Vital Signs (Past 12 Hours) Vital Signs Temp Pulse Resp BP Pulse Ox O2 Del Method 03/04/25 21:05 37.3 C 118 H 18 143/77 H 93 Room Air 03/04/25 14:19 36.7 C 95 H 18 117/53 L 92 Room Air 03/04/25 11:27 36.9 C 98 H 18 110/60 92 Room Air PG Care Time/CCT Total # of Minutes Spent Total Time Spent with Patient: Total time spent is greater than 50% in coordination of care (as documented) at patient's floor/unit and/or counseling patient: Coding Level of Care Code 26043 SUB INP/OBS CARE 3/50MIN Diagnoses RLL pneumonia J18.9 Neutropenic fever D70.9; R50.81 Sepsis A41.9 Chemotherapy induced neutropenia D70.1; T45.1X5A Acute respiratory failure with hypoxia J96.01 Diffuse large B cell lymphoma C83.30 Hyponatremia E87.1 Hypomagnesemia E83.42 Hypothyroidism E03.9 GERD without esophagitis K21.9 Dyslipidemia E78.5 CREST (calcinosis, Raynaud's phenomenon, esophageal dysfunction, sclerodactyly, telangiectasia) M34.1 ILD (interstitial lung disease) J84.9 Hypokalemia E87.6 Anemia D64.9 Anemia type: unspecified type (15) Anemia Anemia type: unspecified type Qualified Code(s): D64.9 - Anemia, unspecified
[2025-03-05 07:37] LABS: Hematocrit (blood only) 29.4 % (37.0-47.0); Hemoglobin 9.5 g/dl (12.0-16.0); Mean Corpuscular Hemoglobin 29.7 pg (25.0-34.0); Mean Corpuscular Hgb Conc 32.3 g/dL (32.0-36.0); Mean Corpuscular Volume 91.9 fL (80.0-100.0); Mean Platelet Volume 9.6 fL (9.4-12.4); Nucleated RBC # (auto) 0.02 K/uL (0.00-0.12); Nucleated RBC % (auto) 0.1 %; Platelet Count 277 K/uL (130-400); RDW Coefficient of Variation 18.3 % (11.5-14.5); RDW Standard Deviation 59.3 fL (36.4-46.3)
[2025-03-05 07:46] LABS: BUN Creatinine Ratio 15.7 (10-20); Calcium 8.8 mg/dl (8.6-10.3); Creatinine Clr Calc Pharmacy 88.4 ml/min; Potassium 3.9 mmol/L (3.5-5.1)
[2025-03-05 08:06] VITALS: O2SAT 92
[2025-03-05] MEDS: METOPROLOL TARTRATE 50 MG TAB PO SCH (08:47)
[2025-03-05 11:58] VITALS: BP 113/64; PULSE 100; RESP 18; TEMP 99.1
== END 2025-03-05 13:52 | disposition home or self-care (01) | DRG 871 ==
LOC: ED 10:03 → 2E 12:54 → SUATTDRO 12:54 → 2E 14:06